=== PATIENT | male | born 1975 | race Caucasian/White ===

== ENCOUNTER → 2017-05-24 | Outpatient (CLI) | payer SELFPAY ==
[~2017-05-24] MED LIST: ALBU17AE23 IH; AURODEX10M; CEPH500C PO; CLIN-62 PO; CLIN300C3 PO; DOXY100C2 PO; ERYT-99; HYDR-229 PO; HYDR-3062 PO; HYDR-3720 PO; HYDR1TAB PO; IBP800T PO; METH4TAB PO; METO10TA3 PO; MUPI1OIN5 NS; NEO/5DRO3; NFPRILOC40 PO; PANT20TA PO; PNT40TEC PO; PRD20T PO; RABE20TA PO; RANI-10 PO; SCR1T PO; SCR1T1 PO; SULF-222 PO; SULF1TAB35 PO; SULF1TAB38 PO; SULF1TAB7 PO
--- NOTE | 2017-05-24 14:09 | Diagnostic Imaging Report ---
EXAMINATION: Left lower extremity duplex venous ultrasound. TECHNIQUE: DVT protocol. Multiple sonographic images with color Doppler and waveform interrogation were performed of the left lower extremity veins with compression and augmentation maneuvers. INDICATION: Left leg edema. FINDINGS: The left lower extremity veins from the groin to below the knee veins were examined with normal color-flow, compressibility and waveform demonstrated. The great saphenous vein is patent. IMPRESSION: No evidence of DVT in the left lower extremity. Dictated by: Dictated on workstation # [id number]
== END ==
LOC: RAD 12:53
PROVIDERS: ATTEND Nurse Practitioner Family
DX: R60.0 Localized edema (principal); M79.89 Other specified soft tissue disorders

== ENCOUNTER 2017-07-06 05:37 | Outpatient (CLI) | payer SELFPAY ==
[~2017-07-06] VITALS: Ht 175.3 cm; Wt 120.2 kg
[2017-07-06] MEDS ORDERED: DICY20TA10 PO (11:22)
[2017-07-06] MEDS ORDERED: FAMO-119 PO (11:22)
[2017-07-06] MEDS ORDERED: HYDR-3812 PO (11:22)
== END 2017-07-06 11:26 ==
LOC: PREOP 05:37
PROVIDERS: ATTEND Surgery
DX: Z01.818 Encounter for other preprocedural examination (principal); K62.5 Hemorrhage of anus and rectum; K21.9 Gastro-esophageal reflux disease without esophagitis

== ENCOUNTER 2017-07-13 06:48 | Day surgery (SDC) | payer SELFPAY ==
[~2017-07-13] VITALS: Ht 175.3 cm; Wt 120.2 kg
[~2017-07-13 06:48] MED LIST changes: +DICY20TA10 PO; +FAMO-119 PO; +HYDR-3812 PO
--- OUTSIDE RECORDS SUMMARY | 2017-07-13 06:53 | XMS REPORT ---
Author Author AMY HALEY [facility] eClinicalWorks Address Unknown Phone Unavailable Care Team Providers Care Wheel Tuner Name Role Phone AMY HALEY CP Unavailable Allergies, Adverse Reactions, Alerts Substance Reaction Event Type Morphine Sulfate nausea and vomiting Drug Allergy Problems Problem Type Condition Code Onset Dates Condition Status Problem Acute sinusitis, unspecified 461.9 Active Problem Acute upper respiratory infections of unspecified site 465.9 Active Problem Cough 786.2 Active Problem Unspecified cellulitis and abscess of finger 681.00 Active Problem Allergic rhinitis, cause unspecified 477.9 Active Problem Pain in joint, shoulder region 719.41 Active Problem Diaphragmatic hernia without mention of obstruction or gangrene 553.3 Active Problem Unspecified gastritis and gastroduodenitis without mention of hemorrhage 535.50 Active Problem Abdominal pain, unspecified site 789.00 Active Problem Diarrhea 787.91 Active Problem Cellulitis and abscess of unspecified site 682.9 Active Problem Encounter for change or removal of surgical wound dressing V58.31 Active Problem Pain in joint, upper arm 719.42 Active Assessment Shoulder pain, left M25.512 Active Problem Disturbance of skin sensation 782.0 Active Medications Medication Code System Code Instructions Start Date End Date Status Dosage Hyoscyamine Sulfate [facility] [address]-56 0.125 MG 4 times a day Jul 06, 2014 1 tablet Naproxen [facility] [address]-40 500 MG Orally every 12 hrs August 26, 2015 1 tablet as needed Protonix [facility] [address]-11 40 MG Once a day Aug 08, 2014 1 tablet [place] [facility] [address]-70 5-325 MG Orally every 6 hrs October 15, 2015 1 tablet as needed Procedures Procedure Coding System Code Date DRAIN/INJECT, JOINT/BURSA CPT-4 October 15, 2015 Vital Signs Date/Time: October 15, 2015 Temperature 97.9 F Weight 270.2 lbs Height 69 in BMI 39.90 Index Blood Pressure Diastolic 84 mmHg Blood Pressure Systolic 130 mmHg Cardiac Monitoring Heart Rate 80 bpm Results Name Result Date Reference Range Unit Abnormality Flag JOINT INJECTION-LARGE JOINT (specify site) Summary Purpose eClinicalWorks Submission
--- OUTSIDE RECORDS SUMMARY | 2017-07-13 06:53 | XMS REPORT ---
Author Author AMY HALEY [facility] Address [address] [place] [address] Care Team Providers Care Linotype Operator Name Role Phone AMY HALEY Unavailable PROBLEMS Type Condition ICD9-CM Code [id number] Code Onset Dates Condition Status SNOMED Code Problem Other chronic pain G89.29 Active 90818950 Problem Gastroesophageal reflux disease with esophagitis K21.0 Active 471813943 ALLERGIES No Information SOCIAL HISTORY Never Assessed PLAN OF CARE VITAL SIGNS MEDICATIONS Medication Instructions Dosage Frequency Start Date End Date Duration Status Hydrocodone-Acetaminophen 5-325 MG Orally every 6 hrs- Must last 30 days 1 tablet as needed Nov, 28 days Active RESULTS No Results PROCEDURES No Known procedures IMMUNIZATIONS No Known Immunizations MEDICAL (GENERAL) HISTORY Type Description Date Medical History colitis Medical History right shoulder pain Surgical History Appendectomy Surgical History Abscess drained and removed Hospitalization History surgery Hospitalization History dehydration
--- OUTSIDE RECORDS SUMMARY | 2017-07-13 06:53 | XMS REPORT ---
Author Author AMY HALEY [facility] Address [address] [place] [address] Care Team Providers Care Prosthetic Dentist Name Role Phone AMY HALEY Unavailable PROBLEMS Type Condition ICD9-CM Code [id number] Code Onset Dates Condition Status SNOMED Code Problem Other chronic pain G89.29 Active 16363523 Problem Gastroesophageal reflux disease with esophagitis K21.0 Active 535618594 ALLERGIES No Information SOCIAL HISTORY Never Assessed PLAN OF CARE VITAL SIGNS MEDICATIONS Medication Instructions Dosage Frequency Start Date End Date Duration Status Hydrocodone-Acetaminophen 5-325 MG Orally every 6 hrs- Must last 30 days 1 tablet as needed Jul, Active RESULTS No Results PROCEDURES No Known procedures IMMUNIZATIONS No Known Immunizations MEDICAL (GENERAL) HISTORY Type Description Date Medical History colitis Medical History right shoulder pain Surgical History Appendectomy Surgical History Abscess drained and removed Hospitalization History surgery Hospitalization History dehydration
--- OUTSIDE RECORDS SUMMARY | 2017-07-13 06:53 | XMS REPORT ---
Author Author AMY HALEY [facility] Address [address] [place] [address] Care Team Providers Care Paper Products Printer Name Role Phone AMY HALEY Unavailable PROBLEMS Type Condition ICD9-CM Code [id number] Code Onset Dates Condition Status SNOMED Code Problem Other chronic pain G89.29 Active 93623035 Problem Gastroesophageal reflux disease with esophagitis K21.0 Active 187087718 ALLERGIES No Information SOCIAL HISTORY Never Assessed PLAN OF CARE VITAL SIGNS MEDICATIONS Medication Instructions Dosage Frequency Start Date End Date Duration Status Hydrocodone-Acetaminophen 5-325 MG Orally every 6 hrs- Must last 30 days 1 tablet as needed Aug, Active RESULTS No Results PROCEDURES No Known procedures IMMUNIZATIONS No Known Immunizations MEDICAL (GENERAL) HISTORY Type Description Date Medical History colitis Medical History right shoulder pain Surgical History Appendectomy Surgical History Abscess drained and removed Hospitalization History surgery Hospitalization History dehydration
--- OUTSIDE RECORDS SUMMARY | 2017-07-13 06:53 | XMS REPORT ---
Author Author AMY HALEY Organization eClinicalWorks Address Unknown Phone Unavailable Care Team Providers Care Knot Tying Operator Name Role Phone AMY HALEY CP Unavailable Allergies No Known Allergies Problems Problem Type Condition Code Onset Dates [...] Pain in joint, upper arm 719.42 Active Problem Disturbance of skin sensation 782.0 Active Medications Medication Code System Code Instructions Start Date End Date Status Dosage [facility] [address]-68 5-325 MG Orally every 6 hrs. MUST LAST 30 DAYS. October 15, 2015 1 tablet as needed Results No Known Results Summary Purpose eClinicalWorks Submission
--- OUTSIDE RECORDS SUMMARY | 2017-07-13 06:53 | XMS REPORT ---
Author Author AMY HALEY Organization [facility] Address [address] [place] [address] Care Team Providers Care Prep Room Supervisor Name Role Phone AMY HALEY Unavailable PROBLEMS Type Condition ICD9-CM Code UHE08-QJ Code Onset Dates Condition Status SNOMED Code Problem Cough 786.2 Active 96564498 Problem Unspecified gastritis and gastroduodenitis without mention of hemorrhage 535.50 Active 041716621 Problem Acute upper respiratory infections of unspecified site 465.9 Active 56084995 Problem Pain in joint, shoulder region 719.41 Active 529342741 Problem Unspecified cellulitis and abscess of finger 681.00 Active 268841870 Problem Diarrhea 787.91 Active 24498532 Problem Diaphragmatic hernia without mention of obstruction or gangrene 553.3 Active 98896287 Problem Allergic rhinitis, cause unspecified 477.9 Active 83582651 Problem Abdominal pain, unspecified site 789.00 Active 87203602 Problem Encounter for change or removal of surgical wound dressing V58.31 Active 34132417 Problem Pain in joint, upper arm 719.42 Active 967527358 Problem Disturbance of skin sensation 782.0 Active 131436713 Problem Cellulitis and abscess of unspecified site 682.9 Active 249481955 Problem Acute sinusitis, unspecified 461.9 Active 94830431 ALLERGIES Unknown Allergies SOCIAL HISTORY No smoking Hx information available PLAN OF CARE VITAL SIGNS MEDICATIONS Medication Instructions Dosage Frequency Start Date End Date Duration Status [place] 5-325 MG Orally every 6 hrs. MUST LAST 30 DAYS. 1 tablet as needed May, Active RESULTS No Results PROCEDURES No Known procedures IMMUNIZATIONS No Known Immunizations
--- OUTSIDE RECORDS SUMMARY | 2017-07-13 06:53 | XMS REPORT ---
Author Author AMY HALEY Organization eClinicalWorks Address Unknown Phone Unavailable Care Team Providers Care Accountant Bookkeeper Name Role Phone AMY HALEY CP Unavailable [...] Instructions Start Date End Date Status Dosage [facility] [address]-95 5-325 MG Orally every 6 hrs. MUST LAST 30 DAYS. October 15, 2015 1 tablet as needed Results No Known Results Summary Purpose eClinicalWorks Submission
--- OUTSIDE RECORDS SUMMARY | 2017-07-13 06:53 | XMS REPORT ---
Author Author AMY HALEY [facility] Address [address] [place] [address] Care Team Providers Care Hood Maker Name Role Phone AMY HALEY Unavailable PROBLEMS Type Condition ICD9-CM Code [id number] Code Onset Dates Condition Status SNOMED Code Problem Other chronic pain G89.29 Active 92311112 Problem Gastroesophageal reflux disease with esophagitis K21.0 Active 726322577 ALLERGIES Unknown Allergies SOCIAL HISTORY No smoking Hx information available PLAN OF CARE VITAL SIGNS MEDICATIONS Medication Instructions Dosage Frequency Start Date End Date Duration Status [place] 5-325 MG Orally every 6 hrs. MUST LAST 30 DAYS. 1 tablet as needed Jun, 28 days Active RESULTS No Results PROCEDURES No Known procedures IMMUNIZATIONS No Known Immunizations
--- OUTSIDE RECORDS SUMMARY | 2017-07-13 06:53 | XMS REPORT ---
Author Author AMY HALEY [facility] Address [address] [place] [address] Care Team Providers Care Gas Leak Inspector Helper Name Role Phone AMY HALEY Unavailable PROBLEMS Type Condition ICD9-CM Code [id number] Code Onset Dates Condition Status SNOMED Code Problem Other chronic pain G89.29 Active 92389446 Problem Gastroesophageal reflux disease with esophagitis K21.0 Active 541269352 ALLERGIES Substance Reaction Event Type Date Status Morphine Sulfate nausea and vomiting Drug Allergy Jul, Active SOCIAL HISTORY Never Assessed PLAN OF CARE VITAL SIGNS Height 69 in 2016-07-30 Weight 282.7 lbs 2016-07-30 Temperature 98.2 degrees Fahrenheit 2016-07-30 Heart Rate 76 bpm 2016-07-30 Respiratory Rate 20 2016-07-30 BMI 41.74 kg/m2 2016-07-30 Blood pressure systolic 132 mmHg 2016-07-30 Blood pressure diastolic 94 mmHg 2016-07-30 MEDICATIONS Medication Instructions Dosage Frequency Start Date End Date Duration Status [place] 5-325 MG Orally every 6 hrs. MUST LAST 30 DAYS. 1 tablet as needed Jul, 30 Active Protonix 40 mg 1 tablet 24h Active RESULTS No Results PROCEDURES No Known procedures IMMUNIZATIONS No Known Immunizations MEDICAL (GENERAL) HISTORY Type Description Date Medical History colitis Medical History right shoulder pain Surgical History Appendectomy Surgical History Abscess drained and removed Hospitalization History surgery Hospitalization History dehydration
--- OUTSIDE RECORDS SUMMARY | 2017-07-13 06:53 | XMS REPORT ---
Author Author AMY HALEY Organization eClinicalWorks Address Unknown Phone Unavailable Care Team Providers Care Traveling Freight Agent Name Role Phone AMY HALEY CP Unavailable [...] Instructions Start Date End Date Status Dosage [facility] [address]-22 5-325 MG Orally every 6 hrs. MUST LAST 30 DAYS. October 15, 2015 1 tablet as needed Results No Known Results Summary Purpose eClinicalWorks Submission
--- OUTSIDE RECORDS SUMMARY | 2017-07-13 06:53 | XMS REPORT ---
Author Author AMY HALEY Organization [facility] Address [address] [place] [address] Care Team Providers Care Marine Fitter Name Role Phone AMY HALEY Unavailable PROBLEMS Type Condition ICD9-CM Code [id number] Code Onset Dates Condition Status SNOMED Code Problem Cough 786.2 Active 52375656 Problem Unspecified gastritis and gastroduodenitis without mention of hemorrhage 535.50 Active 536087053 Problem Acute upper respiratory infections of unspecified site 465.9 Active 29409368 Problem Pain in joint, shoulder region 719.41 Active 266939318 Problem Unspecified cellulitis and abscess of finger 681.00 Active 379383270 Problem Diarrhea 787.91 Active 27229692 Problem Diaphragmatic hernia without mention of obstruction or gangrene 553.3 Active 34466571 Problem Allergic rhinitis, cause unspecified 477.9 Active 08729083 Problem Abdominal pain, unspecified site 789.00 Active 32819969 Problem Encounter for change or removal of surgical wound dressing V58.31 Active 03860297 Problem Pain in joint, upper arm 719.42 Active 743352853 Problem Disturbance of skin sensation 782.0 Active 976849334 Problem Cellulitis and abscess of unspecified site 682.9 Active 042085424 Problem Acute sinusitis, unspecified 461.9 Active 62605202 ALLERGIES Unknown Allergies SOCIAL HISTORY No smoking Hx information available PLAN OF CARE VITAL SIGNS MEDICATIONS Medication Instructions Dosage Frequency Start Date End Date Duration Status Bactrim DS 800-160 MG Orally Twice a day 1 tablet 12h 10 days Active RESULTS No Results PROCEDURES No Known procedures IMMUNIZATIONS No Known Immunizations
--- OUTSIDE RECORDS SUMMARY | 2017-07-13 06:53 | XMS REPORT ---
Author Author AMY HALEY [facility] Address [address] [place] [address] Care Team Providers Care Shop Fitter Name Role Phone AMY HALEY Unavailable PROBLEMS Type Condition ICD9-CM Code [id number] Code Onset Dates Condition Status SNOMED Code Problem Other chronic pain G89.29 Active 45914601 Problem Gastroesophageal reflux disease with esophagitis K21.0 Active 387813143 ALLERGIES No Information SOCIAL HISTORY Never Assessed PLAN OF CARE VITAL SIGNS MEDICATIONS Medication Instructions Dosage Frequency Start Date End Date Duration Status Hydrocodone-Acetaminophen 5-325 MG Orally every 6 hrs- Must last 30 days 1 tablet as needed October, 28 days Active RESULTS No Results PROCEDURES No Known procedures IMMUNIZATIONS No Known Immunizations MEDICAL (GENERAL) HISTORY Type Description Date Medical History colitis Medical History right shoulder pain Surgical History Appendectomy Surgical History Abscess drained and removed Hospitalization History surgery Hospitalization History dehydration
--- OUTSIDE RECORDS SUMMARY | 2017-07-13 06:53 | XMS REPORT ---
Author Author AMY HALEY Organization [facility] Address [address] [place] [address] Care Team Providers Care Mortgage Operations Manager Name Role Phone AMY HALEY Unavailable PROBLEMS Type Condition ICD9-CM Code QAK37-CK Code Onset Dates Condition Status SNOMED Code Problem Cough 786.2 Active 10119486 Problem Unspecified gastritis and gastroduodenitis without mention of hemorrhage 535.50 Active 593600132 Problem Acute upper respiratory infections of unspecified site 465.9 Active 33616464 Problem Pain in joint, shoulder region 719.41 Active 394686173 Problem Unspecified cellulitis and abscess of finger 681.00 Active 925016538 Problem Diarrhea 787.91 Active 34708190 Problem Diaphragmatic hernia without mention of obstruction or gangrene 553.3 Active 36183556 Problem Allergic rhinitis, cause unspecified 477.9 Active 92755899 Problem Abdominal pain, unspecified site 789.00 Active 16323848 Problem Encounter for change or removal of surgical wound dressing V58.31 Active 53561162 Problem Pain in joint, upper arm 719.42 Active 731034362 Problem Disturbance of skin sensation 782.0 Active 976080796 Problem Cellulitis and abscess of unspecified site 682.9 Active 244156763 Problem Acute sinusitis, unspecified 461.9 Active 50454666 ALLERGIES Unknown Allergies SOCIAL HISTORY No smoking Hx information available PLAN OF CARE VITAL SIGNS MEDICATIONS Medication Instructions Dosage Frequency Start Date End Date Duration Status [place] 5-325 MG Orally every 6 hrs. MUST LAST 30 DAYS. 1 tablet as needed Sep, Active RESULTS No Results PROCEDURES No Known procedures IMMUNIZATIONS No Known Immunizations
--- OUTSIDE RECORDS SUMMARY | 2017-07-13 06:54 | XMS REPORT ---
Author Author AMY HALEY Organization eClinicalWorks Address Unknown Phone Unavailable Care Team Providers Care Asphalt Patcher Name Role Phone AMY HALEY CP Unavailable [...] in joint, upper arm 719.42 Active Assessment Pain in left shoulder M25.512 Active Problem Disturbance of skin sensation 782.0 Active Medications Medication Code System Code Instructions Start Date End Date Status Dosage [facility] [address]-79 5-325 MG Orally every 6 hrs. MUST LAST 30 DAYS. October 15, 2015 1 tablet as needed Results No Known Results Summary Purpose eClinicalWorks Submission
--- OUTSIDE RECORDS SUMMARY | 2017-07-13 06:54 | XMS REPORT ---
Author Author AMY HALEY Organization [facility] Address [address] [place] [address] Care Team Providers Care Lineman Name Role Phone AMY HALEY Unavailable PROBLEMS Type Condition ICD9-CM Code OUH00-DB Code Onset Dates Condition Status SNOMED Code Problem Other chronic pain G89.29 Active 67154832 Problem Gastroesophageal reflux disease with esophagitis K21.0 Active 213635414 ALLERGIES Substance Reaction Event Type Date Status Morphine Sulfate nausea and vomiting Drug Allergy Jul, Active SOCIAL HISTORY Never Assessed PLAN OF CARE VITAL SIGNS MEDICATIONS Medication Instructions Dosage Frequency Start Date End Date Duration Status Protonix 40 mg 1 tablet 24h Active RESULTS Name Result Date Reference Range AMERITOX 2016-07-31 AMERITOX 2016-07-31 PROCEDURES No Known procedures IMMUNIZATIONS No Known Immunizations MEDICAL (GENERAL) HISTORY Type Description Date Medical History colitis Medical History right shoulder pain Surgical History Appendectomy Surgical History Abscess drained and removed Hospitalization History surgery Hospitalization History dehydration
--- OUTSIDE RECORDS SUMMARY | 2017-07-13 06:54 | XMS REPORT ---
Author Author AMY HALEY Organization [facility] Address [address] [place] [address] Care Team Providers Care Health Companion Name Role Phone AMY HALEY Unavailable PROBLEMS Type Condition ICD9-CM Code XAM83-WR Code Onset Dates Condition Status SNOMED Code Problem Cough 786.2 Active 94391222 Problem Unspecified gastritis and gastroduodenitis without mention of hemorrhage 535.50 Active 125012514 Problem Acute upper respiratory infections of unspecified site 465.9 Active 05407049 Problem Pain in joint, shoulder region 719.41 Active 794964680 Problem Unspecified cellulitis and abscess of finger 681.00 Active 223856076 Problem Diarrhea 787.91 Active 47420752 Problem Diaphragmatic hernia without mention of obstruction or gangrene 553.3 Active 44107394 Problem Allergic rhinitis, cause unspecified 477.9 Active 42560389 Problem Abdominal pain, unspecified site 789.00 Active 53722258 Problem Encounter for change or removal of surgical wound dressing V58.31 Active 87452849 Problem Pain in joint, upper arm 719.42 Active 463118241 Problem Disturbance of skin sensation 782.0 Active 319767286 Problem Cellulitis and abscess of unspecified site 682.9 Active 466287216 Problem Acute sinusitis, unspecified 461.9 Active 42820771 ALLERGIES Unknown Allergies SOCIAL HISTORY No smoking Hx information available PLAN OF CARE VITAL SIGNS MEDICATIONS Unknown Medications RESULTS No Results PROCEDURES No Known procedures IMMUNIZATIONS No Known Immunizations
--- OUTSIDE RECORDS SUMMARY | 2017-07-13 06:54 | XMS REPORT ---
Author Author AMY HALEY Organization [facility] Address [address] [place] [address] Care Team Providers Care Detective Private Eye Name Role Phone AMY HALEY Unavailable PROBLEMS Type Condition ICD9-CM Code PNH81-WW Code Onset Dates Condition Status SNOMED Code Problem Other chronic pain G89.29 Active 47280856 Problem Gastroesophageal reflux disease with esophagitis K21.0 Active 415978539 ALLERGIES No Information SOCIAL HISTORY Never Assessed PLAN OF CARE VITAL SIGNS MEDICATIONS Medication Instructions Dosage Frequency Start Date End Date Duration Status [place] 5-325 MG Orally every 6 hrs. MUST LAST 30 DAYS. 1 tablet as needed Jul, 30 Active RESULTS No Results PROCEDURES No Known procedures IMMUNIZATIONS No Known Immunizations MEDICAL (GENERAL) HISTORY Type Description Date Medical History colitis Medical History right shoulder pain Surgical History Appendectomy Surgical History Abscess drained and removed Hospitalization History surgery Hospitalization History dehydration
--- OUTSIDE RECORDS SUMMARY | 2017-07-13 06:55 | XMS REPORT | Continuity of Care Document ---
Author Author [facility] Address Unknown Phone Unavailable Allergies Active Description Code Type Severity Reaction Onset Reported/Identified Relationship to Patient Clinical Status Yes CHOLESTEROL PILL CHOLESTEROL PILL Mild "RED MAN SYNDRO 10/14/2008 Yes morphine Drug Allergy N/A N/A 03/07/2010 Yes morphine [id number] Drug Allergy Unknown SWEATS AND VOMI 07/06/2017 Medications There is no data. Problems Date Dx Coded Attending Type Code Diagnosis Diagnosed By 10/15/2008 786.50 chest pain or discomfort 10/15/2008 786.50 chest pain or discomfort 10/15/2008 786.50 chest pain or discomfort 10/15/2008 786.50 chest pain or discomfort 10/15/2008 786.50 chest pain or discomfort 10/15/2008 SARI POPE APRN 786.50 chest pain or discomfort 10/15/2008 MARIPOSA BRENNER DO 786.50 chest pain or discomfort 10/15/2008 AMY HALEY APRN 786.50 chest pain or discomfort 10/15/2008 AMY HALEY APRN 786.50 chest pain or discomfort 10/15/2008 AMY HALEY APRN 786.50 chest pain or discomfort 10/15/2008 MARIPOSA BRENNER DO 786.50 chest pain or discomfort 02/07/2009 786.05 shortness of breath 02/07/2009 786.05 shortness of breath 02/07/2009 786.05 shortness of breath 02/07/2009 786.05 shortness of breath 02/07/2009 786.05 shortness of breath 02/07/2009 SARI POPE APRN 786.05 shortness of breath 02/07/2009 MARIPOSA BRENNER DO 786.05 shortness of breath 02/07/2009 AMY HALEY APRN 786.05 shortness of breath 02/07/2009 AMY HALEY APRN 786.05 shortness of breath 02/07/2009 AMY HALEY APRN 786.05 shortness of breath 02/07/2009 MARIPOSA BRENNER DO 786.05 shortness of breath 01/25/2010 Ot 380.10 01/25/2010 Ot 388.70 03/12/2010 Ot 786.50 03/12/2010 Ot 787.20 03/12/2010 Ot V17.3 03/13/2010 Ot 786.50 02/05/2011 Ot 530.81 ESOPHAGEAL REFLUX 02/05/2011 Ot 786.50 CHEST PAIN NOS 02/20/2011 530.81 GERD 02/20/2011 530.81 GERD 02/20/2011 530.81 GERD 02/20/2011 530.81 GERD 02/20/2011 530.81 GERD 02/20/2011 SARI POPE APRN 530.81 GERD 02/20/2011 MARIPOSA BRENNER DO 530.81 GERD 02/20/2011 AMY HALEY APRN 530.81 GERD 02/20/2011 AMY HALEY APRN 530.81 GERD 02/20/2011 AMY HALEY APRN 530.81 GERD 02/20/2011 MARIPOSA BRENNER DO 530.81 GERD 06/17/2011 Ot 461.9 ACUTE SINUSITIS NOS 06/17/2011 Ot 786.2 COUGH 06/21/2011 Ot 466.0 ACUTE BRONCHITIS 06/21/2011 Ot 786.2 COUGH 07/06/2011 477.9 RHINITIS 07/06/2011 477.9 RHINITIS 07/06/2011 477.9 RHINITIS 07/06/2011 477.9 RHINITIS 07/06/2011 477.9 RHINITIS 07/06/2011 SARI POPE APRN 477.9 RHINITIS 07/06/2011 MARIPOSA BRENNER DO 477.9 RHINITIS 07/06/2011 AMY HALEY APRN 477.9 RHINITIS 07/06/2011 AMY HALEY APRN 477.9 RHINITIS 07/06/2011 AMY HALEY APRN 477.9 RHINITIS 07/06/2011 MARIPOSA BRENNER DO 477.9 RHINITIS 07/15/2011 465.9 UPPER RESPIRATORY INFECTION 07/15/2011 465.9 UPPER RESPIRATORY INFECTION 07/15/2011 465.9 UPPER RESPIRATORY INFECTION 07/15/2011 465.9 UPPER RESPIRATORY INFECTION 07/15/2011 465.9 UPPER RESPIRATORY INFECTION 07/15/2011 SARI POPE APRN 465.9 UPPER RESPIRATORY INFECTION 07/15/2011 MARIPOSA BRENNER DO 465.9 UPPER RESPIRATORY INFECTION 07/15/2011 AMY HALEY APRN 465.9 UPPER RESPIRATORY INFECTION 07/15/2011 AMY HALEY APRN 465.9 UPPER RESPIRATORY INFECTION 07/15/2011 AMY HALEY APRN 465.9 UPPER RESPIRATORY INFECTION 07/15/2011 MARIPOSA BRENNER DO 465.9 UPPER RESPIRATORY INFECTION 08/28/2011 719.41 SHOULDER JOINT PAIN 08/28/2011 719.41 SHOULDER JOINT PAIN 08/28/2011 719.41 SHOULDER JOINT PAIN 08/28/2011 719.41 SHOULDER JOINT PAIN 08/28/2011 719.41 SHOULDER JOINT PAIN 08/28/2011 SARI POPE APRN 719.41 SHOULDER JOINT PAIN 08/28/2011 MARIPOSA BRENNER DO 719.41 SHOULDER JOINT PAIN 08/28/2011 AMY HALEY APRN 719.41 SHOULDER JOINT PAIN 08/28/2011 AMY HALEY APRN 719.41 SHOULDER JOINT PAIN 08/28/2011 AMY HALEY APRN 719.41 SHOULDER JOINT PAIN 08/28/2011 MARIPOSA BRENNER DO 719.41 SHOULDER JOINT PAIN 10/17/2011 Ot 883.0 OPEN WOUND OF FINGER 10/17/2011 Ot E000.8 OTHER EXTERNAL CAUSE STATUS 10/17/2011 Ot E849.0 ACCIDENT IN HOME 10/17/2011 Ot E920.8 ACC-CUTTING INSTRUM NEC 10/17/2011 Ot V06.1 DIPHTHERIA- TETANUS-PERTUSSIS, COMBINED [ 10/13/2012 PEDRO BATEMAN, OLVIN Romero Ot 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 11/24/2012 MAHENDRA BATEMAN, ANDIE Choudhary Ot 530.81 ESOPHAGEAL REFLUX 11/24/2012 MAHENDRA BATEMAN, ANDIE Choudhary Ot 786.59 CHEST PAIN NEC 11/24/2012 ANDIE MCCRAY MD Ot 789.06 ABDOMINAL PAIN, EPIGASTRIC 12/01/2012 ALPHONSO REYNOLDS DO Ot 681.00 CELLULITIS, FINGER NOS 12/01/2012 ALPHONSO REYNOLDS DO Ot V12.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 RESISTANT S 12/02/2012 681.00 UNSPECIFIED CELLULITIS AND ABSCESS OF FINGER 12/02/2012 681.00 UNSPECIFIED CELLULITIS AND ABSCESS OF FINGER 12/02/2012 681.00 UNSPECIFIED CELLULITIS AND ABSCESS OF FINGER 12/02/2012 681.00 UNSPECIFIED CELLULITIS AND ABSCESS OF FINGER 12/02/2012 681.00 UNSPECIFIED CELLULITIS AND ABSCESS OF FINGER 12/02/2012 SARI POPE APRN R 681.00 UNSPECIFIED CELLULITIS AND ABSCESS OF FINGER 12/02/2012 MARIPOSA BRENNER DO 681.00 UNSPECIFIED CELLULITIS AND ABSCESS OF FINGER 12/02/2012 AMY HALEY APRN 681.00 UNSPECIFIED CELLULITIS AND ABSCESS OF FINGER 12/02/2012 AMY HALEY APRN 681.00 UNSPECIFIED CELLULITIS AND ABSCESS OF FINGER 12/02/2012 AMY HALEY APRN 681.00 UNSPECIFIED CELLULITIS AND ABSCESS OF FINGER 12/02/2012 MARIPOSA BRENNER DO 681.00 UNSPECIFIED CELLULITIS AND ABSCESS OF FINGER 01/13/2013 782.0 DISTURBANCE OF SKIN SENSATION 01/13/2013 782.0 DISTURBANCE OF SKIN SENSATION 01/13/2013 782.0 DISTURBANCE OF SKIN SENSATION 01/13/2013 SARI POPE APRN R 782.0 DISTURBANCE OF SKIN SENSATION 01/13/2013 MARIPOSA BRENNER DO 782.0 DISTURBANCE OF SKIN SENSATION 01/13/2013 AMY HALEY APRN 782.0 DISTURBANCE OF SKIN SENSATION 01/13/2013 AMY HALEY APRN 782.0 DISTURBANCE OF SKIN SENSATION 01/13/2013 AMY HALEY APRN 782.0 DISTURBANCE OF SKIN SENSATION 01/13/2013 MARIPOSA BRENNER DO 782.0 DISTURBANCE OF SKIN SENSATION 01/16/2013 PEDRO BATEMAN, OLVIN Romero Ot 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 02/14/2013 MARIPOSA BRENNER DO Ot 041.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 RESISTANT STAPHYLOCOCCUS AUR 02/14/2013 MARIPOSA BRENNER DO Ot 530.81 ESOPHAGEAL REFLUX 02/14/2013 MARIPOSA BRENNER DO Ot 682.6 CELLULITIS OF LEG 02/14/2013 MARIPOSA BRENNER DO Ot V12.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 RESISTANT S 02/17/2013 682.9 CELLULITIS AND ABSCESS OF UNSPECIFIED SITES 02/17/2013 V58.31 WOUND DRESSING 02/17/2013 682.9 CELLULITIS AND ABSCESS OF UNSPECIFIED SITES 02/17/2013 V58.31 WOUND DRESSING 02/17/2013 682.9 CELLULITIS AND ABSCESS OF UNSPECIFIED SITES 02/17/2013 V58.31 WOUND DRESSING 02/17/2013 SARI POPE APRN R 682.9 CELLULITIS AND ABSCESS OF UNSPECIFIED SITES 02/17/2013 JAIME POPE APRNIA R V58.31 WOUND DRESSING 02/17/2013 BRENNER DO, MARIPOSA K 682.9 CELLULITIS AND ABSCESS OF UNSPECIFIED SITES 02/17/2013 BRENNER DO, MARIPOSA K V58.31 WOUND DRESSING 02/17/2013 AMY HALEY APRN 682.9 CELLULITIS AND ABSCESS OF UNSPECIFIED SITES 02/17/2013 AMY HALEY APRN V58.31 WOUND DRESSING 02/17/2013 AMY HALEY APRN 682.9 CELLULITIS AND ABSCESS OF UNSPECIFIED SITES 02/17/2013 AMY HALEY APRN V58.31 WOUND DRESSING 02/17/2013 AMY HALEY APRN 682.9 CELLULITIS AND ABSCESS OF UNSPECIFIED SITES 02/17/2013 AMY HALEY APRN V58.31 WOUND DRESSING 02/17/2013 BRENNER DO, MARIPOSA K 682.9 CELLULITIS AND ABSCESS OF UNSPECIFIED SITES 02/17/2013 BRENNER DO, MARIPOSA K V58.31 WOUND DRESSING 03/17/2013 GABE BATEMAN, YADIRA Sheikh Ot 592.0 CALCULUS OF KIDNEY 03/17/2013 GABE BATEMAN, YADIRA Sheikh Ot 789.00 ABDOMINAL PAIN, UNSPECIFIED SITE 04/14/2013 ELIDIA DO MARIPOSA K 461.9 SINUSITIS ACUTE 04/14/2013 BRENNER DO, MARIPOSA K 786.2 COUGH 04/14/2013 AMY HALEY APRN 461.9 SINUSITIS ACUTE 04/14/2013 AMY HALEY APRN 786.2 COUGH 04/14/2013 AMY HALEY APRN 461.9 SINUSITIS ACUTE 04/14/2013 AMY HALEY APRN 786.2 COUGH 04/14/2013 AMY HALEY APRN 461.9 SINUSITIS ACUTE 04/14/2013 AMY HALEY APRN T 786.2 COUGH 04/14/2013 BRENNER DO MARIPOSA K 461.9 SINUSITIS ACUTE 04/14/2013 BRENNER DO MARIPOSA K 786.2 COUGH 09/15/2013 AMY HALEY APRN 719.42 PAIN- ELBOW 09/15/2013 AMY HALEY APRN T 719.42 PAIN- ELBOW 09/15/2013 AMY HALEY APRN 719.42 PAIN- ELBOW 09/15/2013 MARIPOSA BRENNER DO 719.42 PAIN- ELBOW 02/10/2014 JESSICA BATEMAN, BIRGIT Gill Ot 682.6 CELLULITIS OF LEG 02/10/2014 JESSICA BATEMAN, BIRGIT Gill Ot 916.5 INSECT BITE HIP/LEG-INF 02/10/2014 BIRGIT LOPEZ MD Ot E000.8 OTHER EXTERNAL CAUSE STATUS 02/10/2014 JESSICA BATEMAN, BIRGIT Gill Ot E849.0 ACCIDENT IN HOME 02/10/2014 BIRGIT LOPEZ MD Ot E906.4 NONVENOM ARTHROPOD BITE 03/05/2014 MAHENDRA BATEMAN, ANDIE Choudhary Ot 729.1 MYALGIA AND MYOSITIS NOS 03/05/2014 ANDIE MCCRAY MD Ot 787.02 NAUSEA ALONE 04/29/2014 ALPHONSO REYNOLDS DO Ot 401.9 HYPERTENSION NOS 04/29/2014 ALPHONSO REYNOLDS DO Ot 682.1 CELLULITIS OF NECK 04/29/2014 ALPHONSO REYNOLDS DO Ot 910.4 INSECT BITE HEAD 04/29/2014 ALPHONSO REYNOLDS DO Ot V12.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 RESISTANT S 05/11/2014 Ot 608.4 05/11/2014 Ot 608.4 05/14/2014 JOHANNA DOTY MD Ot 530.11 05/14/2014 LALITHA BATEMAN, JOHANNA Ot 530.3 05/14/2014 JOHANNA DOTY MD Ot 530.5 05/14/2014 JOHANNA DOTY MD Ot 535.50 05/14/2014 JOHANNA DOTY MD Ot 535.60 05/14/2014 LALITHA BATEMAN, JOHANNA Ot 553.3 05/14/2014 JOHANNA DOTY MD Ot 935.1 05/14/2014 JOHANNA DOTY MD Ot E000.8 05/14/2014 JOHANNA DOTY MD Ot E915 05/14/2014 JOHANNA DOTY MD Ot 530.11 05/14/2014 JOHANNA DOTY MD Ot 530.3 05/14/2014 JOHANNA DOTY MD Ot 530.5 05/14/2014 LALITHA BATEMAN, TAKAAKI Ot 535.50 05/14/2014 LALITHA BATEMAN, TAKAAKI Ot 535.60 05/14/2014 LALITHA BATEMAN, TAKAAKI Ot 553.3 05/14/2014 LALITHA BATEMAN, TAKAAKI Ot 935.1 05/14/2014 LALITHA BATEMAN, TAKAAKI Ot E000.8 05/14/2014 LALITHA BATEMAN, TAKAAKI Ot E915 05/14/2014 LALITHA BATEMAN, TAKAAKI Ot 530.11 05/14/2014 LALITHA BATEMAN, TAKAAKI Ot 530.3 05/14/2014 LALITHA BATEMAN, TAKAAKI Ot 530.5 05/14/2014 LALITHA BATEMAN, TAKAAKI Ot 535.50 05/14/2014 LALITHA BATEMAN, TAKAAKI Ot 535.60 05/14/2014 LALITHA BATEMAN, TAKAAKI Ot 553.3 05/14/2014 ALLITHA BATEMAN, TAKAAKI Ot 935.1 05/14/2014 LALITHA BATEMAN, TAKAAKI Ot E000.8 05/14/2014 LALITHA BATEMAN, TAKAAKI Ot E915 05/16/2014 LALITHA BATEMAN, TAKAAKI Ot 530.11 05/16/2014 LALITHA BATEMAN, TAKAAKI Ot 530.3 05/16/2014 LALITHA BATEMAN, TAKAAKI Ot 530.5 05/16/2014 LALITHA BATEAMN, TAKAAKI Ot 535.50 05/16/2014 LALITHA BATEMAN, TAKAAKI Ot 535.60 05/16/2014 LALITHA BATEMAN, TAIWOKI Ot 553.3 05/16/2014 LALITHA BATEMAN, TAIWOKI Ot 935.1 05/16/2014 LALITHA BATEMAN, TAKAAKI Ot E000.8 05/16/2014 LALITHA BATEMAN, TAIWOKI Ot E915 07/06/2014 BRENNER DO, MARIPOSA K 787.91 DIARRHEA 07/06/2014 BRENNER DO, MARIPOSA K 789.00 ABDOMINAL PAIN UNSPECIFIED SITE 07/12/2014 ALPHONSO REYNOLDS DO Ot 530.81 ESOPHAGEAL REFLUX 07/12/2014 ALPHONSO REYNOLDS DO Ot 786.50 CHEST PAIN NOS 09/21/2014 Ot 608.4 09/21/2014 JOHANNA DOTY MD Ot 530.11 09/21/2014 LALITHA BATEMAN, TAKAAKI Ot 530.3 09/21/2014 LALITHA BATEMAN, TAKAAKI Ot 530.5 09/21/2014 LALITHA BATEMAN, TAKAAKI Ot 535.50 09/21/2014 LALITHA BATEMAN, TAKAAKI Ot 535.60 09/21/2014 LALITHA BATEMAN, TAKAAKI Ot 553.3 09/21/2014 LALITHA BATEMAN, TAKAAKI Ot 935.1 09/21/2014 LALITHA BATEMAN, JOHANNA Ot E000.8 09/21/2014 LALITHA BATEMAN, TAIWOKI Ot E915 09/30/2014 Ot 608.4 09/30/2014 LALITHA BATEMAN, TAIWOKI Ot 530.11 09/30/2014 LALITHA BATEMAN, TAIWOKI Ot 530.3 09/30/2014 LALITHA BATEMAN, TAIWOKI Ot 530.5 09/30/2014 LALITHA BATEMAN, TAKAAKI Ot 535.50 09/30/2014 LALITHA BATEMAN, TAKAAKI Ot 535.60 09/30/2014 LALITHA BATEMAN, JOHANNA Ot 553.3 09/30/2014 LALITHA BATEMAN, JOHANNA Ot 935.1 09/30/2014 LALITHA BATEMAN, JOHANNA Ot E000.8 09/30/2014 LALITHA BATEMAN, TAIWOKI Ot E915 09/30/2014 ARTEMIO MONTES WEIGHT ANALYST Ot 692.6 DERMATITIS DUE TO PLANT 09/30/2014 ARTEMIO MONTES WEIGHT ANALYST Ot 782.1 NONSPECIF SKIN ERUPT NEC 10/09/2014 Ot 608.4 10/09/2014 LALITHA BATEMAN, JOHANNA Ot 530.11 10/09/2014 LALITHA BATEMAN, TAIWOKI Ot 530.3 10/09/2014 LALITHA BATEMAN, OLIVIAAAKI Ot 530.5 10/09/2014 LALITHA BATEMAN, JOHANNA Ot 535.50 10/09/2014 LALITHA BATEMAN, TAKAAKI Ot 535.60 10/09/2014 LALITHA BATEMAN, OLIVIAAAKI Ot 553.3 10/09/2014 LALITHA BATEMAN, TAKAAKI Ot 935.1 10/09/2014 LALITHA BATEMAN, JOHANNA Ot E000.8 10/09/2014 LALITHA BATEMAN, TAIWOKI Ot E915 11/08/2014 GABE BATEMAN, YADIRA Sheikh Ot 686.9 LOCAL SKIN INFECTION NOS 11/28/2014 Ot 608.4 11/28/2014 LALITHA BATEMAN, TAKAAKI Ot 530.11 11/28/2014 LALITHA BATEMAN, TAKAAKI Ot 530.3 11/28/2014 LALITHA BATEMAN, TAKAAKI Ot 530.5 11/28/2014 LALITHA BATEMAN, TAKAAKI Ot 535.50 11/28/2014 LALITHA BATEMAN, TAKAAKI Ot 535.60 11/28/2014 LALITHA BATEMAN, TAKAAKI Ot 553.3 11/28/2014 LALITHA BATEMAN, TAKAAKI Ot 935.1 11/28/2014 LALITHA BATEMAN, TAKAAKI Ot E000.8 11/28/2014 LALITHA BATEMAN, TAKAAKI Ot E915 11/28/2014 LALITHA BATEMAN, TAKAAKI Ot 530.11 11/28/2014 LALITHA BATEMAN, TAKAAKI Ot 530.3 11/28/2014 LALITHA BATEMAN, TAKAAKI Ot 530.5 11/28/2014 LALITHA BATEMAN, TAKAAKI Ot 535.50 11/28/2014 LALITHA BATEMAN, TAKAAKI Ot 535.60 11/28/2014 LALITHA BATEMAN, TAKAAKI Ot 553.3 11/28/2014 LALITHA BATEMAN, TAKAAKI Ot 935.1 11/28/2014 LALITHA BATEMAN, TAKAAKI Ot E000.8 11/28/2014 LALITHA BATEMAN, TAKAAKI Ot E915 12/10/2014 LALITHA BATEMAN, TAKAAKI Ot 530.11 12/10/2014 LALITHA BATEMAN, TAKAAKI Ot 530.3 12/10/2014 LALITHA BATEMAN, TAKAAKI Ot 530.5 12/10/2014 LALITHA BATEMAN, TAKAAKI Ot 535.50 12/10/2014 LALITHA BATEMAN, TAKAAKI Ot 535.60 12/10/2014 LALITHA BATEMAN, TAKAAKI Ot 553.3 12/10/2014 LALITHA BATEMAN, TAKAAKI Ot 935.1 12/10/2014 LALITHA BATEMAN, TAKAAKI Ot E000.8 12/10/2014 LALITHA BATEMAN, TAKAAKI Ot E915 02/24/2015 Ot 608.4 02/24/2015 LALITHA BATEMAN, TAKAAKI Ot 530.11 02/24/2015 LALITHA BATEMAN, TAKAAKI Ot 530.3 02/24/2015 LALITHA BATEMAN, TAKAAKI Ot 530.5 02/24/2015 LALITHA BATEMAN, JOHANNA Ot 535.50 02/24/2015 LALITHA BATEMAN, JOHANNA Ot 535.60 02/24/2015 LALITHA BATEMAN, JOHANNA Ot 553.3 02/24/2015 LALITHA BATEMAN, JOHANNA Ot 935.1 02/24/2015 LALITHA BATEMAN, JOHANNA Ot E000.8 02/24/2015 LALITHA BATEMAN, JOHANNA Ot E915 03/01/2015 Ot 608.4 03/01/2015 LALITHA BATEMAN, JOHANNA Ot 530.11 03/01/2015 LALITHA BATEMAN, JOHANNA Ot 530.3 03/01/2015 LALITHA BATEMAN, JOHANNA Ot 530.5 03/01/2015 LALITHA BATEMAN, JOHANNA Ot 535.50 03/01/2015 LALITHA BATEMAN, JOHANNA Ot 535.60 03/01/2015 LALITHA BATEMAN, JOHANNA Ot 553.3 03/01/2015 LALITHA BATEMAN, JOHANNA Ot 935.1 03/01/2015 LALITHA BATEMAN, JOHANNA Ot E000.8 03/01/2015 LALITHA BATEMAN, JOHANNA Ot E915 12/13/2015 Ot 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 12/13/2015 LALITHA BATEMAN, JOHANNA Ot 530.11 REFLUX ESOPHAGITIS 12/13/2015 LALITHA BATEMAN, JOHANNA Ot 530.3 ESOPHAGEAL STRICTURE 12/13/2015 LALITHA BATEMAN, JOHANNA Ot 530.5 DYSKINESIA OF ESOPHAGUS 12/13/2015 JOHANNA DOTY MD Ot 535.50 UNSP GASTRITIS GASTRODUODENITIS W/O ME 12/13/2015 LALITHA BATEMAN, JOHANNA Ot 535.60 DUODENITIS, WITHOUT MENTION OF HEMORRHAG 12/13/2015 LALITHA BATEMAN, JOHANNA Ot 553.3 DIAPHRAGMATIC HERNIA 12/13/2015 LALITHA BATEMAN, JOHANNA Ot 935.1 FOREIGN BODY ESOPHAGUS 12/13/2015 JOHANNA DOTY MD Ot E000.8 OTHER EXTERNAL CAUSE STATUS 12/13/2015 JOHANNA DOTY MD Ot E915 FB ENTERING OTH ORIFICE 12/13/2015 ROSENDO HUSSEIN Ot L02.31 CUTANEOUS ABSCESS OF BUTTOCK 12/13/2015 ROSENDO HUSSEIN Ot Z86.14 PERSONAL HISTORY OF METHICILLIN RESIS ST 12/13/2015 Ot 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 12/13/2015 JOHANNA DOTY MD Ot 530.11 REFLUX ESOPHAGITIS 12/13/2015 JOHANNA DOTY MD Ot 530.3 ESOPHAGEAL STRICTURE 12/13/2015 JOHANNA DOTY MD Ot 530.5 DYSKINESIA OF ESOPHAGUS 12/13/2015 JOHANNA DOTY MD Ot 535.50 UNSP GASTRITIS GASTRODUODENITIS W/O ME 12/13/2015 JOHANNA DOTY MD Ot 535.60 DUODENITIS, WITHOUT MENTION OF HEMORRHAG 12/13/2015 JOHANNA DOTY MD Ot 553.3 DIAPHRAGMATIC HERNIA 12/13/2015 JOHANNA DOTY MD Ot 935.1 FOREIGN BODY ESOPHAGUS 12/13/2015 JOHANNA DOTY MD Ot E000.8 OTHER EXTERNAL CAUSE STATUS 12/13/2015 JOHANNA DOTY MD Ot E915 FB ENTERING OTH ORIFICE 05/24/2017 Ot 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 05/24/2017 JOHANNA DOTY MD Ot 530.11 REFLUX ESOPHAGITIS 05/24/2017 JOHANNA DOTY MD Ot 530.3 ESOPHAGEAL STRICTURE 05/24/2017 JOHANNA DOTY MD Ot 530.5 DYSKINESIA OF ESOPHAGUS 05/24/2017 JOHANNA DOTY MD Ot 535.50 UNSP GASTRITIS GASTRODUODENITIS W/O ME 05/24/2017 JOHANNA DOTY MD Ot 535.60 DUODENITIS, WITHOUT MENTION OF HEMORRHAG 05/24/2017 JOHANNA DOTY MD Ot 553.3 DIAPHRAGMATIC HERNIA 05/24/2017 JOHANNA DOTY MD Ot 935.1 FOREIGN BODY ESOPHAGUS 05/24/2017 JOHANNA DOTY MD Ot E000.8 OTHER EXTERNAL CAUSE STATUS 05/24/2017 JOHANNA DOTY MD Ot E915 FB ENTERING OTH ORIFICE 05/25/2017 ALEX SOLER APRN Ot M79.89 OTHER SPECIFIED SOFT TISSUE DISORDERS 05/25/2017 ALEX SOLER APRN Ot R60.0 LOCALIZED EDEMA 07/06/2017 Ot 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 Procedures Code Description Performed By Performed On OLVIN DUPREE 12/10/2012 86.04 OTHER SKIN SUBQ I D 02/13/2013 Results There is no data. Encounters ACCT No. Visit Date/Time Discharge Status Pt. Type Provider Facility Loc./Unit Complaint [id number] 07/06/2014 14:22:00 07/06/2014 23:59:59 CLS Outpatient MARIPOSA BRENNER DO [id number] 05/02/2014 14:27:00 05/02/2014 23:59:59 CLS Outpatient AMY HALEY APRN [id number] 03/02/2014 09:15:00 03/02/2014 23:59:59 CLS Outpatient AMY HALEY APRN [id number] 09/15/2013 10:30:00 09/15/2013 23:59:59 CLS Outpatient AMY HALEY APRN [id number] 04/14/2013 14:56:00 04/14/2013 23:59:59 CLS Outpatient MARIPOSA BRENNER DO [id number] 04/05/2013 13:52:00 04/05/2013 23:59:59 CLS Outpatient SARI POPE APRN [id number] 02/27/2013 14:37:00 Document Registration [id number] 02/24/2013 11:36:00 Document Registration [id number] 02/21/2013 16:17:00 Document Registration [id number] 12/10/2012 09:18:00 Document Registration [id number] 12/02/2012 13:42:00 Document Registration [id number] 07/06/2017 05:37:00 07/06/2017 11:26:00 DIS Outpatient MARIAJOSE LUDWIG DO [facility] PREOP COLONOSCOPY/EGD [id number] 05/24/2017 12:53:00 05/24/2017 23:59:59 CLS Outpatient ALEX SOLER APRN [facility] RAD LT LEG SWELLING [id number] 12/13/2015 10:44:00 12/13/2015 11:49:00 DIS Emergency ROSENDO HUSSEIN [facility] ER ABSCESS [id number] 11/08/2014 17:12:00 11/08/2014 18:00:00 DIS Emergency YADIRA BERNAL MD [facility] ER R ARM ABCESS [id number] 09/30/2014 17:52:00 09/30/2014 18:00:00 DIS Emergency ARTEMIO MONTES APRN [facility] ER RASH/POSS POISON WILI [id number] 07/12/2014 22:25:00 07/12/2014 23:46:00 DIS Emergency ALPHONSO REYNOLDS DO [facility] ER CHEST PAIN [id number] 05/11/2014 17:23:00 05/11/2014 23:59:59 CLS Outpatient JOHANNA DOTY MD [facility] SDC FOREIGN BODY [id number] 04/29/2014 20:39:00 04/29/2014 23:08:00 DIS Emergency ALPHONSO REYNOLDS DO [facility] ER INSECT BITE/STING [id number] 03/04/2014 22:54:00 03/05/2014 00:37:00 DIS Emergency ANDIE MCCRAY MD [facility] ER BODY ACHE [id number] 02/10/2014 21:52:00 02/10/2014 22:13:00 DIS Emergency BIRGIT LOPEZ MD [facility] ER POSS SPIDER BITE R KNEE [id number] 03/17/2013 08:06:00 03/17/2013 10:25:00 DIS Emergency YADIRA BERNAL MD [facility] ER LEFT SIDE/ABD PAIN [id number] 02/12/2013 13:49:00 02/14/2013 18:35:00 DIS Inpatient MARIPOSA BRENNER DO [facility] 4TH CELLULITIS [id number] 11/01/2012 09:30:00 01/16/2013 00:01:00 DIS Outpatient PEDRO BATEMAN, OLVIN Romero [facility] WOUNDCARE PERISCROTAL ABSCESS [id number] 11/30/2012 23:07:00 12/01/2012 03:19:00 DIS Emergency APLHONSO REYNOLDS DO [facility] ER RT HAND RING FINGER ABSCESS [id number] 11/24/2012 00:23:00 11/24/2012 01:08:00 DIS Emergency ANDIE MCCRAY MD [facility] ER ACID REFLUX [id number] 10/12/2012 23:30:00 10/13/2012 19:20:00 DIS Outpatient PEDRO BATEMAN, OLVIN Romero [facility] PERISCROTAL ABSCESS [id number] 07/13/2017 10:00:00 PEN Preadmit MARIAJOSE LUDWIG DO [facility] ENDO RECTAL BLEEDING/REFLUX [id number] 01/17/2013 11:15:00 Document Registration [id number] 10/17/2011 13:43:00 Document Registration [id number] 06/21/2011 12:44:00 Document Registration [id number] 06/17/2011 10:02:00 Document Registration [id number] 02/05/2011 17:07:00 Document Registration [id number] 03/13/2010 09:48:00 Document Registration [id number] 03/11/2010 23:27:00 Document Registration [id number] 01/25/2010 21:30:00 Document Registration
[2017-07-13] MEDS ORDERED: LACTATED RINGERS 1,000 ML IV STA (07:17)
[2017-07-13] MEDS ORDERED: MIDAZOLAM 2 MG/2 ML (VERSED) VIAL ONE (07:25)
[2017-07-13] MEDS ORDERED: PROPOFOL INJECTION 50 ML IV ONE ×2 (07:25→08:39)
[2017-07-13] MEDS ORDERED: HURRICAINE EXT TUBE (BENZOCAINE) XX PRN (07:30)
[2017-07-13 07:36] VITALS: BP 138/90
--- NOTE | 2017-07-13 08:14 | Progress Note-Pre Operative ---
Pre-Operative Progress Note H&P Reviewed The H&P was reviewed, patient examined and no changes noted. Date Seen by Provider: Jul 13, 2017 Time Seen by Provider: 08:13 Date H&P Reviewed: Jul 13, 2017 Time H&P Reviewed: 08:13 Pre-Operative Diagnosis: blood in stools, GERD MARIAJOSE LUDWIG DO Jul 13, 2017 08:14
[2017-07-13] MEDS ORDERED: HURRICAINE EXT TUBE (BENZOCAINE) ONE (08:17)
--- NOTE | 2017-07-13 08:59 | Progress Note-Post Operative ---
Post-Operative Progess Note Surgeon (s)/Asthma Educator (s) Surgeon MARIAJOSE LUDWIG DO Asthma Educator: na Pre-Operative Diagnosis blood in stools, GERD Post-Operative Diagnosis gastritis with small antral ulcer, mucosal change rectum Procedure & Operative Findings Date of Procedure 07/13/17 Procedure Performed/Findings egd c biopsies, colonoscopy with cold biopsies rectum Anesthesia Type per assistant accounting manager Estimated Blood Loss Estimated blood loss (mL): scant Specimens/Packing Specimens Removed antrum, ge junction, rectum MARIAJOSE LUDWIG DO Jul 13, 2017 08:59
[2017-07-13] MEDS ORDERED: PANT40TA2 PO (09:03)
[2017-07-13] MEDS ORDERED: SUCR1TAB36 PO (09:03)
--- NOTE | 2017-07-13 09:04 | Discharge Inst-Simple/Standard ---
Discharge Inst-Standard Discharge Medications New, Converted or Re-Newed RX: Transmitted to Pharmacy Patient Instructions/Follow Up Plan of Care/Instructions/FU: 3 weeks Ángel Activity as Tolerated: Yes Discharge Diet: Regular Diet MARIAJOSE LUDWIG DO Jul 13, 2017 09:04
[2017-07-13 09:20] VITALS: BP 127/85
[2017-07-13 09:55] VITALS: BP 128/76
[2017-07-13 10:00] VITALS: BP 128/76
--- NOTE | 2017-07-13 13:35 | OPERATIVE REPORT ---
DATE OF SERVICE: 07/13/2017 PREOPERATIVE DIAGNOSES: Blood in stools and reflux. POSTOPERATIVE DIAGNOSES: Gastritis with small antral ulcer and mucosal changes of the rectum. PROCEDURE: EGD with biopsies, colonoscopy with cold biopsies of the rectum. SURGEON: Mariajose Neal D.O. ANESTHESIA: Per CLOUD ARCHITECT. ESTIMATED BLOOD LOSS: Scant. COMPLICATIONS: None. INDICATIONS: The patient is a 42-year-old male with history of blood in stools. He has questionable diagnosis of ulcerative colitis. He also has reflux. The patient understands risks and benefits of procedures and wished to proceed with procedures. Consent was signed in the chart. DESCRIPTION OF PROCEDURE: The patient was taken to the endoscopy suite, placed in the left lateral recumbent position. Timeout was performed. Scope was inserted into mouth, down the esophagus, stomach and into the duodenum without difficulty. There were no polyps, mass or ulcerations within the duodenum. The scope was slowly retracted back into the stomach, which was further insufflated. The antrum had some erythematous changes with small ulceration in the antrum present. Biopsy was obtained. Scope was also retroflexed noting a small hiatal hernia, no other pathology. Scope was returned to its normal position, slowly withdrawn into the esophagus, taking a biopsy of the GE junction. No other pathology noted in the esophagus and as the scope was slowly retracted out. The patient then had a colonoscopy performed. There were no palpable polyps, masses or ulcerations on rectal exam. Scope was inserted into the rectum and advanced all the way to the cecum with minimal difficulty. Prep was adequate. The terminal ileum was intubated, had normal appearance. Scope was retracted back into the colon where it was slowly withdrawn. There are no polyps, masses or ulcerations within the cecum, ascending, transverse, descending and sigmoid colon. In the rectum, some slight erythematous changes questionably inflammatory changes versus changes of the mucosa from prep. Biopsy was obtained of the rectum. Scope was then slowly retracted back until completely removed. The patient tolerated the procedure well without any complications. He was taken to recovery room in stable condition. RECOMMENDATIONS: The patient will be started on Protonix and Carafate. We will have him follow up in the office in approximately 2 to 3 weeks to discuss pathology results and see how he is doing at that time. Job ID: [id number] DocumentID: [id number] Dictated Date: 07/13/2017 09:08:10 Chronic Care Nurse Date: 07/13/2017 12:15:32 Dictated By: MARIAJOSE NEAL DO
== END 2017-07-13 10:00 | disposition home or self-care (01) ==
LOC: ENDO 06:48
PROVIDERS: ATTEND Surgery
DX: K92.1 Melena (principal); K29.70 Gastritis, unspecified, without bleeding; K25.9 Gastric ulcer, unspecified as acute or chronic, without hemorrhage or perforation; K21.9 Gastro-esophageal reflux disease without esophagitis; K44.9 Diaphragmatic hernia without obstruction or gangrene; E66.9 Obesity, unspecified; Z68.39 Body mass index [BMI] 39.0-39.9, adult

== ENCOUNTER → 2017-08-03 | Outpatient (CLI) | payer SELFPAY ==
[~2017-08-03] MED LIST changes: +PANT40TA2 PO; +SUCR1TAB36 PO
== END ==
LOC: CARD 13:34
PROVIDERS: ATTEND Internal Medicine Cardiovascular Disease
DX: R60.0 Localized edema (principal)
CPT/HCPCS: 93306

== ENCOUNTER → 2017-10-15 | Outpatient (CLI) | payer OTHER ==
[~2017-10-15] MED LIST changes: +ACET-2267 PO; +DOXY100T2 PO; +MULT1CAP14 PO
--- NOTE | 2017-10-15 08:54 | Diagnostic Imaging Report ---
PROCEDURE: US Gallbladder. TECHNIQUE: Multiple real-time grayscale images were obtained over the right upper quadrant in various projections. INDICATION: Abdominal pain. FINDINGS: Liver is enlarged at 21 cm. There is increased echogenicity throughout the liver consistent with hepatic steatosis. No discrete liver mass is identified. The gallbladder is without stones or sludge. No wall thickening or pericholecystic fluid is seen. No definite biliary ductal dilatation is identified. The pancreas is nonvisualized due to overlying bowel gas. The right kidney is unremarkable. There is no ascites. IMPRESSION: 1. Hepatomegaly and hepatic steatosis. 2. No evidence of cholelithiasis or acute cholecystitis. Dictated by: Dictated on workstation # [id number]
== END ==
LOC: RAD 07:33
PROVIDERS: ATTEND Surgery
DX: K76.0 Fatty (change of) liver, not elsewhere classified (principal); K21.0 Gastro-esophageal reflux disease with esophagitis
CPT/HCPCS: 76705

== ENCOUNTER → 2017-10-15 | Outpatient (CLI) | payer OTHER ==
--- NOTE | 2017-10-15 08:50 | Diagnostic Imaging Report ---
PROCEDURE: US Abdomen, limited. TECHNIQUE: Multiple realtime grayscale images were obtained over the abdomen in various projections. INDICATION: Left lower quadrant pain and bulging. FINDINGS: Limited abdominal ultrasound was performed to evaluate for hernia. The area of interest in the left lower quadrant was evaluated. No definite abdominal wall defect or evidence of hernia is seen. No mass or fluid collection is identified. IMPRESSION: No sonographic abnormality is detected. Dictated by: Dictated on workstation # [id number]
== END ==
LOC: RAD 08:13
PROVIDERS: ATTEND Nurse Practitioner Community Health
DX: R10.32 Left lower quadrant pain (principal)
CPT/HCPCS: 76705

== ENCOUNTER → 2017-10-22 | Outpatient (CLI) | payer OTHER ==
[~2017-10-22] MED LIST changes: +CATHETER FLUSH 10 ML SYR IV PRN
--- NOTE | 2017-10-22 13:50 | Diagnostic Imaging Report ---
INDICATION: Reflux esophagitis. FINDINGS: The patient was administered 5.33 mCi of Tc 99m Choletec and sequential imaging was performed over the right upper abdomen. There is progressive, homogeneous accumulation of radiotracer within the liver parenchyma. There is filling of the bile ducts and subsequent filling of the gallbladder. There is progressive clearance of activity from the liver parenchyma and accumulation of radiotracer within loops of small bowel. The patient was then administered a fatty meal, utilizing 8 ounces of Ensure. The gallbladder ejection fraction was calculated to be approximately 37%. (Normal values post fatty meal stimulation are 33% or greater.) IMPRESSION: 1. Hepatobiliary scan demonstrates a patent biliary tree. 2. Normal gallbladder ejection fraction of approximately 37%. Dictated by: Dictated on workstation # [id number]
== END ==
LOC: CARD 10:53
PROVIDERS: ATTEND Surgery
DX: K21.0 Gastro-esophageal reflux disease with esophagitis (principal)
CPT/HCPCS: 78227

== ENCOUNTER 2017-10-25 04:31 | Observation (INO) | payer OTHER ==
[~2017-10-25] VITALS: Ht 175.3 cm; Wt 121.5 kg
[~2017-10-25 04:31] MED LIST changes: -ACET-2267 PO; -CATHETER FLUSH 10 ML SYR IV PRN; -DOXY100T2 PO; -MULT1CAP14 PO
--- OUTSIDE RECORDS SUMMARY | 2017-10-25 04:37 | XMS REPORT ---
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 Role Phone AMY HALEY Unavailable PROBLEMS Type Condition ICD9-CM Code ZUK41-DF Code Onset Dates Condition Status SNOMED Code Problem Other chronic pain G89.29 Active 39639704 Problem Morbid (severe) obesity due to excess calories E66.01 Active 21311963195333 Problem Essential hypertension I10 Active 67104464 Problem Other ulcerative colitis without complication K51.80 Active 05908723 Problem Gastroesophageal reflux disease with esophagitis K21.0 Active 272806618 Problem Body mass index (BMI) of 45.0-49.9 in adult Z68.42 Active 291614139 Problem GERD with esophagitis K21.0 Active 794376045 ALLERGIES No Information ENCOUNTERS Encounter Location Date Diagnosis [facility] [id number] [place] [address] 33071- 8894 Sep, [facility] [address] [address]- [address] Sep, [facility] [id number] [place] [address] 78598- 2017 Aug, [facility] [address] 85164- 7972 Aug, [facility] [id number] [place] [address] 67157- 0740 Jul, Pain in right shoulder M25.511 [facility] [id number] [place] [address] 20329- 6745 05 Jul, 2017 [facility] [id number] [place] [address] 85583 -8739 Jul, Localized edema R60.0 and BMI 40.0-44.9, adult Z68.41 [place] [id number] [place] [address] 44459- 6344 02 Jul, 2017 [place] [address] 48767- 0939 Jun, Edema of left lower extremity R60.0 ; Essential hypertension I10 ; Family history of coronary artery disease Z82.49 ; Morbid ( severe) obesity due to excess calories E66.01 and Body mass index (BMI) of 45.0- 49.9 in adult Z68.42 [place] [id number] [place] [address] 15942- 9989 16 Jun, 2017 Other chronic pain G89.29 [place] [address] 53925- 7106 15 Jun, 2017 Pain in right shoulder M25.511 [place] [address] 97327- 9638 Jun, Other ulcerative colitis without complication K51.80 [facility] [id number] [place] [address] 80717 -6344 May, [place] [address] 35382- 5902 May, GERD with esophagitis K21.0 ; Other ulcerative colitis without complication K51.80 and Other chest pain R07.89 [place] [id number] [place] [address] 12586- 4565 May, [facility] [id number] [place] [address] 22807 -4349 May, Left leg swelling M79.89 [place] [address] 82192- 2596 14 Apr, 2017 Pain in right shoulder M25.511 [place] [address] 29321- 6149 14 Apr, 2017 Pain in right shoulder M25.511 [facility] [address] [facility] [id number], [place] [address] Mar, [facility] [address] [facility] [id number], [place] [address] Mar, Pain in right shoulder M25.511 [facility] [address] [facility] [id number], [place] [address] 7836 Mar, [facility] [address] [facility] [id number] [place] [address] 61998- 3696 Mar, [facility] [address] [facility] [id number], [place] [address] 5096 Feb, Pain in right shoulder M25.511 [facility] [address] [facility] [id number], [place] [address]- 0206 Jan, Pain in right shoulder M25.511 [facility] [id number] [place] [address] 10520- 1286 Jan, [facility] [address] [facility] [id number], [place] [address]- 4379 Dec, Pain in right shoulder M25.511 [facility] [address], [place] [address] 0946 Nov, Pain in right shoulder M25.511 [facility] [address], [place] [address] 1686 Nov, Pain in right shoulder M25.511 [facility] [address] [facility] [id number], [place] [address]- 7046 October, Pain in right shoulder M25.511 [facility] [id number], [place] [address]- 6916 Sep, Pain in right shoulder M25.511 [facility] [id number], [place] [address] 7906 Aug, Pain in right shoulder M25.511 [facility] [address], [place] [address] 9132 10 Jul, 2016 Pain in right shoulder M25.511 [facility] [id number] [place] [address] 50840 2546 10 Jul, 2016 Pain in left shoulder M25.512 [facility] [address], [place] [address]- 6566 10 Jul, 2016 Other chronic pain G89.29 [facility] [id number] [place] [address] 16266 2542 09 Jul, 2016 Pain in right shoulder M25.511 ; Other chronic pain G89.29 ; Pain in left shoulder M25.512 and Gastroesophageal reflux disease with esophagitis K21.0 [facility] [address], [place] [address]- 5585 Jun, [facility] [id number] [place] [address] 03945- 3777 May, [facility] [id number] [place] [address] 86882- 3356 May, [facility] [id number] [place] [address] 36129- 3136 Apr, [facility] [address], [place] [address]- 2547 Mar, [facility] [address], [place] [address] 2546 22 Feb, 2016 [facility] [address], [place] [address] 2546 13 Feb, 2016 [facility] [id number] [place] [address] 60781 2545 12 Feb, 2016 [facility] [address], [place] [address] 2546 06 Feb, 2016 [facility] [id number] [place] [address] 87129 2546 Jan, [facility] [id number] [place] [address] 25396- 0706 Dec, Pain in left shoulder M25.512 [facility] [id number] [place] [address] 54112- 1916 Dec, Gastroesophageal reflux disease, esophagitis presence not specified K21.9 [facility] [id number] [place] [address] 39704- 8436 Nov, Pain in left shoulder M25.512 [facility] [id number] [place] [address] 62729- 7050 October, Pain in left shoulder M25.512 [facility] [id number] [place] [address] 41857- 9411 Sep, Shoulder pain, left M25.512 [facility] [id number] [place] [address] 52626- 8430 Aug, Pain in right shoulder M25.511 and Other chronic pain G89.29 [facility] [id number] [place] [address] 99639- 8513 Aug, Shoulder pain, right M25.511 and GERD (gastroesophageal reflux disease) K21.9 [facility] [id number] [place] [address] 67995- 3203 Nov, [facility] [id number] [place] [address] 24286- 0943 Sep, [facility] [id number] [place] [address] 67806- 5779 Sep, [facility] [id number] [place] [address] 63605- 6400 Jul, [facility] [id number] [place] [address] 78406- 1462 Jul, [facility] [id number] [place] [address] 88287- 4425 Jul, [facility] [place] [facility] [address] [id number] [place] [address]- 6705 Jul, [facility] [place] [facility] [address] [id number] [place] [address]- 1209 Jul, [facility] [place] [facility] [address] [id number] [place] [address]- 1276 Jul, [facility] [place] [facility] [address] [id number] [place] [address]- 9134 Jun, [facility] [place] [facility] [address] [id number] [place] [address]- 6337 Jun, [facility] [place] [facility] [address] [id number] [place] [address]- 3264 Apr, [facility] [place] [facility] [address] [id number] [place] [address]- 4372 Apr, [facility] [place] [facility] [address] [id number] [place] [address]- 8929 Apr, [facility] [place] [facility] [address] [id number] [place] [address]- 5040 Feb, [facility] [place] [facility] [address] [id number] [place] [address]- 2788 Feb, [facility] [place] [facility] [address] [id number] [place] [address]- 7558 Feb, [facility] [place] [facility] [address] [id number], [place] [address]- 5180 Feb, [facility] [place] [facility] [address] [id number] [place] [address]- 6196 Aug, [facility] [place] [facility] [address] [id number] [place] [address]- 1764 Aug, [facility] [place] [facility] [address] [id number], [place] [address]- 2023 Mar, [facility] [place] [facility] [address] [id number], [place] [address]- 5394 Mar, [facility] [address] [id number] [place] [address]- 5916 Mar, [facility] [place] [facility] [address] [id number] [place] [address]- 6366 Mar, [facility] [place] [facility] [address] [id number] [place] [address]- 0554 Feb, [facility] [place] [facility] [address] [id number] [place] [address]- 4094 Feb, [facility] [place] [facility] [address] [id number] [place] [address]- 1187 Feb, [facility] [place] [facility] [address] [id number] [place] [address]- 7516 Jan, [facility] [address] [id number] [place] [address]- 6591 Jan, [facility] [place] [facility] [address] [id number] [place] [address]- 0747 Dec, [facility] [address] [id number] [place] [address]- 5490 Dec, [facility] [place] [facility] [address] [id number] [place] [address]- 4023 Nov, [facility] [place] [facility] [address] [id number] [place] [address]- 5594 Nov, [facility] [place] [facility] [address] [id number] [place] [address]- 8683 Jan, [facility] [place] [facility] [address] [id number] [place] [address]- 4430 Jan, [facility] [place] [facility] [address] [id number] [place] [address]- 2827 Aug, [facility] [place] [facility] [address] [id number] [place] [address]- 1514 Jun, [facility] [place] [facility] [address] [facility] [id number] [place] [address]- 8316 16 Jun, 2011 [facility] [address] [facility] [id number], [place] [address]- 8495 Apr, [facility] [address] [facility] [id number] [place] [address]- 6966 Feb, IMMUNIZATIONS No Known Immunizations SOCIAL HISTORY Never Assessed REASON FOR VISIT Controlled Med Refill 01/18/17 PLAN OF CARE VITAL SIGNS MEDICATIONS Medication Instructions Dosage Frequency Start Date End Date Duration Status Hydrocodone-Acetaminophen 5-325 MG Orally every 6 hrs- Must last 30 days 1 tablet as needed Dec, 28 days Active RESULTS No Results PROCEDURES No Known procedures INSTRUCTIONS MEDICATIONS ADMINISTERED No Known Medications MEDICAL (GENERAL) HISTORY Type Description Date Medical History colitis Medical History right shoulder pain Surgical History Appendectomy Surgical History Abscess drained and removed Hospitalization History surgery Hospitalization History dehydration
--- OUTSIDE RECORDS SUMMARY | 2017-10-25 04:37 | XMS REPORT ---
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 Name Role Phone AMY HALEY Unavailable PROBLEMS Type Condition ICD9-CM Code SAU40-BR Code Onset Dates Condition Status SNOMED Code Problem Other chronic pain G89.29 Active 40300792 Problem Other ulcerative colitis without complication K51.80 Active 05380647 Problem Gastroesophageal reflux disease with esophagitis K21.0 Active 776358955 Problem Other chronic pain G89.29 Active 34521832 Problem Body mass index (BMI) of 40.0-44.9 in adult Z68.41 Active 210061320 Problem Morbid (severe) obesity due to excess calories E66.01 Active 82196824797224 Problem GERD with esophagitis K21.0 Active 573304639 Problem Body mass index (BMI) of 45.0-49.9 in adult Z68.42 Active 575771630 Problem Essential hypertension I10 Active 88564396 ALLERGIES No Information ENCOUNTERS Encounter Location Date Diagnosis [place] [id number] [place] [address] 24895- 1409 Sep, Other chronic pain G89.29 ; Pain in left knee M25.562 ; Pain in right knee M25.561 and Abdominal pain, left lower quadrant R10.32 [place] [address] [place] [id number] [place] [address] 21457- 7948 Sep, Edema of left lower extremity R60.0 ; Essential hypertension I10 ; Morbid (severe) obesity due to excess calories E66.01 ; Body mass index (BMI) of 40.0-44.9 in adult Z68.41 and Hiatal hernia K44.9 [place] [id number] [place] [address] 83240- 3793 Aug, [place] [address] [place] [address]- 2271 Aug, [place] [id number] [place] [address] 15246- 3426 Jul, Pain in right shoulder M25.511 [place] [address] 56237- 7618 Jul, [facility] [address] 86290 -4416 Jul, Localized edema R60.0 and BMI 40.0-44.9, adult Z68.41 [place] [address] 24937- 4055 Jul, [place] [address] 74398- 7778 Jun, Edema of left lower extremity R60.0 ; Essential hypertension I10 ; Family history of coronary artery disease Z82.49 ; Morbid ( severe) obesity due to excess calories E66.01 and Body mass index (BMI) of 45.0- 49.9 in adult Z68.42 [place] [address] 01252- 1881 Jun, Other chronic pain G89.29 [place] [address] 40809- 0611 Jun, Pain in right shoulder M25.511 [place] [id number] [place] [address] 61625- 3558 Jun, Other ulcerative colitis without complication K51.80 [facility] [id number] [place] [address] 21321 -0441 May, [place] [address] 47257- 5988 May, GERD with esophagitis K21.0 ; Other ulcerative colitis without complication K51.80 and Other chest pain R07.89 [place] [address] 24079- 0666 May, [facility] [id number] [place] [address] 07923 -2796 May, Left leg swelling M79.89 [facility] [id number] [place] [address] 85860- 3566 14 Apr, 2017 Pain in right shoulder M25.511 [facility] [id number] [place] [address] 60122- 1866 Apr, Pain in right shoulder M25.511 [facility] [id number] [place] [address] 88409- 3546 Mar, [facility] [id number] [place] [address] 05051- 9216 Mar, Pain in right shoulder M25.511 [facility] [id number] [place] [address] 33927- 1466 Mar, [facility] [id number] [place] [address] 24579- 2207 Mar, [facility] [id number] [place] [address] 26130- 1232 Feb, Pain in right shoulder M25.511 [facility] [id number] [place] [address] 89459- 5896 Jan, Pain in right shoulder M25.511 [facility] [id number] [place] [address] 82729- 2856 Jan, [facility] [id number] [place] [address] 64199- 5528 Dec, Pain in right shoulder M25.511 [facility] [id number] [place] [address] 11470- 4616 Nov, Pain in right shoulder M25.511 [facility] [id number] [place] [address] 66867- 8106 Nov, Pain in right shoulder M25.511 [facility] [address] [address]- 7971 October, Pain in right shoulder M25.511 [facility] [id number] [address]- 7426 Sep, Pain in right shoulder M25.511 [facility] [address] [address]- 2166 Aug, Pain in right shoulder M25.511 [facility] [id number] [address] 2546 Jul, Pain in right shoulder M25.511 [facility] [id number] [place] [address] 13096- 3756 Jul, Pain in left shoulder M25.512 [facility] [id number] [place] [address] 17277- 9206 Jul, Other chronic pain G89.29 [facility] [id number] [place] [address] 32166- 4617 Jul, Pain in right shoulder M25.511 ; Other chronic pain G89.29 ; Pain in left shoulder M25.512 and Gastroesophageal reflux disease with esophagitis K21.0 [facility] [address], [place] [address]- 2296 Jun, [facility] [address], [place] [address]- 3686 May, [facility] [address], [place] [address] 2546 May, [facility] [id number] [place] [address] 37629- 4996 Apr, [facility] [address], [place] [address] 2546 Mar, [facility] [address], [place] [address]- 5149 Feb, [facility] [address], [place] [address]- 2285 13 Feb, 2016 [facility] [id number] [place] [address] 21960- 3540 12 Feb, 2016 [facility] [id number] [place] [address] 17998- 2437 06 Feb, 2016 [facility] [id number] [place] [address] 71377- 6446 Jan, [facility] [id number] [place] [address] 87457- 4734 Dec, Pain in left shoulder M25.512 [facility] [id number] [place] [address] 58088- 4893 Dec, Gastroesophageal reflux disease, esophagitis presence not specified K21.9 [facility] [id number] [place] [address] 72191- 3983 Nov, Pain in left shoulder M25.512 [facility] [id number] [place] [address] 63724- 2874 October, Pain in left shoulder M25.512 [facility] [id number] [place] [address] 42009- 3072 Sep, Shoulder pain, left M25.512 [facility] [id number] [place] [address] 90444- 9732 Aug, Pain in right shoulder M25.511 and Other chronic pain G89.29 [facility] [id number] [place] [address] 83215- 7507 07 Aug, 2015 Shoulder pain, right M25.511 and GERD (gastroesophageal reflux disease) K21.9 [facility] [id number] [place] [address] 32269- 9580 08 Nov, 2014 [facility] [id number] [place] [address] 63984- 3478 14 Sep, 2014 [facility] [place] [facility] [address] [id number] [place] [address]- 8481 13 Sep, 2014 [facility] [place] [facility] [address] [id number] [place] [address]- 8306 23 Jul, 2014 [facility] [place] [facility] [address] [id number] [place] [address]- 9865 Jul, [facility] [place] [facility] [address] [id number] [place] [address]- 8598 Jul, [facility] [place] [facility] [address] [id number] [place] [address]- 5044 Jul, [facility] [place] [facility] [address] [id number] [place] [address]- 4111 Jul, [facility] [place] [facility] [address] [id number] [place] [address]- 5431 Jul, [facility] [place] [facility] [address] [id number] [place] [address]- 0169 Jun, [facility] [place] [facility] [address] [id number] [place] [address]- 7936 Jun, [facility] [place] [facility] [address] [id number] [place] [address]- 3487 Apr, [facility] [place] [facility] [address] [id number] [address]- 7785 Apr, [facility] [place] [facility] [address] [id number], [place] [address]- 1478 Apr, [facility] [place] [facility] [address] [id number] [place] [address]- 3867 12 Feb, 2014 [facility] [place] [facility] [address] [id number] [place] [address]- 6531 12 Feb, 2014 [facility] [place] [facility] [address] [id number] [place] [address]- 6123 11 Feb, 2014 [facility] [place] [facility] [address] [id number] [place] [address]- 0027 11 Feb, 2014 [facility] [place] [facility] [address] [id number] [place] [address]- 3526 Aug, [facility] [place] [facility] [address] [id number] [place] [address]- 1308 Aug, [facility] [place] [facility] [address] [id number] [place] [address]- 7101 Mar, [facility] [place] [facility] [address] [id number] [place] [address]- 8938 Mar, [facility] [place] [facility] [address] [id number] [place] [address]- 5729 Mar, [facility] [place] [facility] [address] [id number] [place] [address]- 3702 Mar, [facility] [place] [facility] [address] [id number] [place] [address]- 3359 Feb, [facility] [place] [facility] [address] [id number] [place] [address]- 0644 06 Feb, 2013 [facility] [place] [facility] [address] [id number] [place] [address]- 9573 Feb, [facility] [place] [facility] [address] [id number] [place] [address]- 4163 30 Jan, 2013 [facility] [place] [facility] [address] [id number] [place] [address]- 7612 Jan, [facility] [place] [facility] [address] [id number] [place] [address]- 3690 Dec, [facility] [place] [facility] [address] [id number] [place] [address]- 1255 15 Dec, 2012 [facility] [place] [facility] [address] [id number] [place] [address]- 0104 Nov, [facility] [place] [facility] [address] [id number] [place] [address]- 5129 Nov, [facility] [id number] [address]- 6200 Jan, [facility] [id number] [address]- 1140 Jan, [facility] [address], [place] [address]- 8526 Aug, [facility] [address], [place] [address]- 8749 Jun, [facility] [address], [place] [address]- 5645 Jun, [facility] [address], [place] [address]- 5367 Apr, [facility] [id number], [place] [address]- 9840 Feb, IMMUNIZATIONS No Known Immunizations SOCIAL HISTORY Never Assessed REASON FOR VISIT Controlled Med Refill PLAN OF CARE VITAL SIGNS MEDICATIONS Medication Instructions Dosage Frequency Start Date End Date Duration Status Hydrocodone-Acetaminophen 5-325 MG Orally every 6 hrs- Must last 30 days 1 tablet as needed Feb, 28 days Active RESULTS No Results PROCEDURES No Known procedures INSTRUCTIONS MEDICATIONS ADMINISTERED No Known Medications MEDICAL (GENERAL) HISTORY Type Description Date Medical History colitis Medical History right shoulder pain Surgical History Appendectomy Surgical History Abscess drained and removed Hospitalization History surgery Hospitalization History dehydration
--- OUTSIDE RECORDS SUMMARY | 2017-10-25 04:37 | XMS REPORT ---
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 Name Role Phone AMY HALEY Unavailable PROBLEMS Type Condition ICD9-CM Code KLY49-QR Code Onset Dates Condition Status SNOMED Code Problem Other chronic pain G89.29 Active 35236124 Problem Morbid (severe) obesity due to excess calories E66.01 Active 95414271528323 Problem Essential hypertension I10 Active 54987532 Problem Other ulcerative colitis without complication K51.80 Active 68118826 Problem Gastroesophageal reflux disease with esophagitis K21.0 Active 528142888 Problem Body mass index (BMI) of 45.0-49.9 in adult Z68.42 Active 676601216 Problem GERD with esophagitis K21.0 Active 181266469 ALLERGIES No Information ENCOUNTERS Encounter Location Date Diagnosis [facility] [id number] [place] [address] 52972- 9900 Sep, [facility] [address] 87107- 6314 Sep, [facility] [id number] [place] [address] 63460- 3420 Aug, [facility] [address] 18363- 0079 Aug, [facility] [id number] [place] [address] 92910- 4690 Jul, Pain in right shoulder M25.511 [facility] [id number] [place] [address] 73965- 8061 05 Jul, 2017 [facility] [id number] [place] [address] 49459 -9317 Jul, Localized edema R60.0 and BMI 40.0-44.9, adult Z68.41 [place] [id number] [place] [address] 06143- 6155 02 Jul, 2017 [place] [address] 04864- 5593 Jun, Edema of left lower extremity R60.0 ; Essential hypertension I10 ; Family history of coronary artery disease Z82.49 ; Morbid ( severe) obesity due to excess calories E66.01 and Body mass index (BMI) of 45.0- 49.9 in adult Z68.42 [place] [id number] [place] [address] 17168- 5626 16 Jun, 2017 Other chronic pain G89.29 [place] [address] 39310- 7387 15 Jun, 2017 Pain in right shoulder M25.511 [place] [address] 73651- 0915 Jun, Other ulcerative colitis without complication K51.80 [facility] [id number] [place] [address] 19350 -0677 May, [place] [address] 72157- 1493 May, GERD with esophagitis K21.0 ; Other ulcerative colitis without complication K51.80 and Other chest pain R07.89 [place] [id number] [place] [address] 19374- 3990 May, [facility] [id number] [place] [address] 39738 -8410 May, Left leg swelling M79.89 [place] [address] 40766- 5909 14 Apr, 2017 Pain in right shoulder M25.511 [place] [address] 87441- 5412 14 Apr, 2017 Pain in right shoulder M25.511 [facility] [address] [facility] [id number] [address]- 3931 Mar, [facility] [address] [facility] [id number], [place] [address]- 8386 Mar, Pain in right shoulder M25.511 [facility] [address] [facility] [id number], [place] [address]- 8906 Mar, [facility] [address] [facility] [id number] [place] [address] 81389- 7536 Mar, [facility] [address] [facility] [id number], [place] [address]- 7386 Feb, Pain in right shoulder M25.511 [facility] [address] [facility] [id number], [place] [address]- 6466 Jan, Pain in right shoulder M25.511 [facility] [id number] [place] [address] 79218- 5846 Jan, [facility] [address] [facility] [id number], [place] [address]- 5586 Dec, Pain in right shoulder M25.511 [facility] [address] [address]- 8456 Nov, Pain in right shoulder M25.511 [facility] [address], [place] [address]- 6336 Nov, Pain in right shoulder M25.511 [facility] [address] [facility] [id number][place] [address]- 3926 October, Pain in right shoulder M25.511 [facility] [id number] [address]- 5876 Sep, Pain in right shoulder M25.511 [facility] [address] [id number], [place] [address]- 7176 Aug, Pain in right shoulder M25.511 [facility] [address], [place] [address]- 4123 10 Jul, 2016 Pain in right shoulder M25.511 [facility] [id number] [place] [address] 28341 2546 10 Jul, 2016 Pain in left shoulder M25.512 [facility] [address], [place] [address]- 0886 10 Jul, 2016 Other chronic pain G89.29 [facility] [id number] [place] [address] 09096 254 09 Jul, 2016 Pain in right shoulder M25.511 ; Other chronic pain G89.29 ; Pain in left shoulder M25.512 and Gastroesophageal reflux disease with esophagitis K21.0 [facility] [address], [place] [address]- 5928 Jun, [facility] [id number] [place] [address] 66397- 1088 May, [facility] [id number] [place] [address] 12020- 6241 May, [facility] [id number] [place] [address] 96941- 9301 Apr, [facility] [address] [address]- 2542 Mar, [facility] [address], [place] [address] 2546 22 Feb, 2016 [facility] [address], [place] [address] 2546 13 Feb, 2016 [facility] [id number] [place] [address] 50676 2541 12 Feb, 2016 [facility] [address], [place] [address] 2546 06 Feb, 2016 [facility] [id number] [place] [address] 32550 2546 Jan, [facility] [id number] [place] [address] 94890- 0930 Dec, Pain in left shoulder M25.512 [facility] [id number] [place] [address] 54231- 5046 Dec, Gastroesophageal reflux disease, esophagitis presence not specified K21.9 [facility] [id number] [place] [address] 88157- 4610 Nov, Pain in left shoulder M25.512 [facility] [id number] [place] [address] 41817- 1744 October, Pain in left shoulder M25.512 [facility] [id number] [place] [address] 52544- 6495 Sep, Shoulder pain, left M25.512 [facility] [id number] [place] [address] 53289- 6109 Aug, Pain in right shoulder M25.511 and Other chronic pain G89.29 [facility] [id number] [place] [address] 56110- 2910 Aug, Shoulder pain, right M25.511 and GERD (gastroesophageal reflux disease) K21.9 [facility] [id number] [place] [address] 17315- 6103 Nov, [facility] [id number] [place] [address] 68894- 9539 Sep, [facility] [id number] [place] [address] 50902- 5345 Sep, [facility] [id number] [place] [address] 99503- 2764 Jul, [facility] [id number] [place] [address] 11593- 9655 Jul, [facility] [id number] [place] [address] 29662- 5228 Jul, [facility] [place] [facility] [address] [id number] [place] [address]- 5262 Jul, [facility] [place] [facility] [address] [id number] [place] [address]- 2910 Jul, [facility] [place] [facility] [address] [id number] [place] [address]- 9047 Jul, [facility] [place] [facility] [address] [id number] [place] [address]- 5058 Jun, [facility] [place] [facility] [address] [id number] [place] [address]- 4084 Jun, [facility] [place] [facility] [address] [id number] [place] [address]- 1668 Apr, [facility] [place] [facility] [address] [id number] [place] [address]- 8042 Apr, [facility] [place] [facility] [address] [id number] [place] [address]- 4077 Apr, [facility] [place] [facility] [address] [id number] [place] [address]- 3539 Feb, [facility] [place] [facility] [address] [id number] [place] [address] Feb, [facility] [place] [facility] [address] [id number] [place] [address] Feb, [facility] [place] [facility] [address] [id number], [place] [address] Feb, [facility] [place] [facility] [address] [id number] [place] [address] Aug, [facility] [place] [facility] [address] [id number] [place] [address] Aug, [facility] [place] [facility] [address] [id number], [place] [address] Mar, [facility] [place] [facility] [address] [id number], [place] [address] Mar, [facility] [address] [id number] [place] [address] Mar, [facility] [place] [facility] [address] [id number] [place] [address] Mar, [facility] [place] [facility] [address] [id number] [place] [address] Feb, [facility] [place] [facility] [address] [id number] [place] [address] Feb, [facility] [place] [facility] [address] [id number] [place] [address] Feb, [facility] [place] [facility] [address] [id number] [place] [address] Jan, [facility] [address] [id number] [place] [address] Jan, [facility] [place] [facility] [address] [id number] [place] [address] Dec, [facility] [address] [id number] [place] [address] Dec, [facility] [place] [facility] [address] [id number] [place] [address] Nov, [facility] [place] [facility] [address] [id number] [place] [address] Nov, [facility] [place] [facility] [address] [id number] [place] [address] Jan, [facility] [place] [facility] [address] [id number] [place] [address] Jan, [facility] [place] [facility] [address] [id number] [place] [address] Aug, [facility] [place] [facility] [address] [id number] [place] [address] Jun, [facility] [place] [facility] [address] [facility] [id number] [place] [address] 16 Jun, 2011 [facility] [address] [facility] [id number] [address] Apr, [facility] [address] [facility] [id number] [place] [address] 17 Feb, 2010 IMMUNIZATIONS No Known Immunizations SOCIAL HISTORY Never Assessed REASON FOR VISIT Controlled Med Refill 12/21 PLAN OF CARE VITAL SIGNS MEDICATIONS Medication [...]
--- OUTSIDE RECORDS SUMMARY | 2017-10-25 04:38 | XMS REPORT ---
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 Name Role Phone AMY HALEY Unavailable PROBLEMS Type Condition ICD9-CM Code VMK16-IZ Code Onset Dates Condition Status SNOMED Code Problem Other chronic pain G89.29 Active 77847805 Problem Morbid (severe) obesity due to excess calories E66.01 Active 04772357914595 Problem Essential hypertension I10 Active 95892945 Problem Other ulcerative colitis without complication K51.80 Active 08186079 Problem Gastroesophageal reflux disease with esophagitis K21.0 Active 357100798 Problem Body mass index (BMI) of 45.0-49.9 in adult Z68.42 Active 839372431 Problem GERD with esophagitis K21.0 Active 394698511 ALLERGIES No Information ENCOUNTERS Encounter Location Date Diagnosis [facility] [id number] [place] [address] 87422- 3785 Sep, [facility] [address] [address]- [address]137 Sep, [facility] [id number] [place] [address] 87871- 5574 Aug, [facility] [address] 82226- 5903 Aug, [facility] [id number] [place] [address] 65341- 4174 Jul, Pain in right shoulder M25.511 [facility] [id number] [place] [address] 77627- 9079 05 Jul, 2017 [facility] [id number] [place] [address] 51389 -2892 Jul, Localized edema R60.0 and BMI 40.0-44.9, adult Z68.41 [facility] [id number] [place] [address] 33562- 4193 02 Jul, 2017 [place] [address] 28784- 4385 Jun, Edema of left lower extremity R60.0 ; Essential hypertension I10 ; Family history of coronary artery disease Z82.49 ; Morbid ( severe) obesity due to excess calories E66.01 and Body mass index (BMI) of 45.0- 49.9 in adult Z68.42 [facility] [id number] [place] [address] 18019- 0168 16 Jun, 2017 Other chronic pain G89.29 [place] [address] 90904- 6035 15 Jun, 2017 Pain in right shoulder M25.511 [place] [address] 70885- 0351 Jun, Other ulcerative colitis without complication K51.80 [facility] [id number] [place] [address] 89567 -2090 May, [facility] [address] 13425- 2399 May, GERD with esophagitis K21.0 ; Other ulcerative colitis without complication K51.80 and Other chest pain R07.89 [facility] [id number] [place] [address] 92630- 0558 May, [facility] [id number] [place] [address] 87748 -3806 May, Left leg swelling M79.89 [place] [address] 22300- 1945 14 Apr, 2017 Pain in right shoulder M25.511 [place] [address] 12690- 6728 14 Apr, 2017 Pain in right shoulder M25.511 [facility] [address] [facility] [id number], [place] [address] Mar, [facility] [address] [facility] [id number], [place] [address] 5156 Mar, Pain in right shoulder M25.511 [facility] [address] [facility] [id number], [place] [address] 6766 Mar, [facility] [address] [facility] [id number] [place] [address] 78122- 5596 Mar, [facility] [address] [facility] [id number], [place] [address] 3116 Feb, Pain in right shoulder M25.511 [facility] [address] [facility] [id number][place] [address]- 1306 Jan, Pain in right shoulder M25.511 [facility] [id number] [place] [address] 80659- 8916 Jan, [facility] [address] [facility] [id number], [place] [address]- 1411 Dec, Pain in right shoulder M25.511 [facility] [address] [address] 8116 Nov, Pain in right shoulder M25.511 [facility] [address], [place] [address] 4616 Nov, Pain in right shoulder M25.511 [facility] [address] [facility] [id number], [place] [address] 7956 October, Pain in right shoulder M25.511 [facility] [id number] [address] 2326 Sep, Pain in right shoulder M25.511 [facility] [address] [id number] [address] 6736 Aug, Pain in right shoulder M25.511 [facility] [address], [place] [address]- 0392 10 Jul, 2016 Pain in right shoulder M25.511 [facility] [address] [place] [address] 18125 2546 10 Jul, 2016 Pain in left shoulder M25.512 [facility] [address], [place] [address]- 7546 10 Jul, 2016 Other chronic pain G89.29 [facility] [id number] [place] [address] 24214 2542 09 Jul, 2016 Pain in right shoulder M25.511 ; Other chronic pain G89.29 ; Pain in left shoulder M25.512 and Gastroesophageal reflux disease with esophagitis K21.0 [facility] [address], [place] [address]- 3222 Jun, [facility] [id number] [place] [address] 02168- 7222 May, [facility] [address] [place] [address] 75304- 1648 May, [facility] [id number] [place] [address] 48371- 6488 Apr, [facility] [address], [place] [address]- 2549 Mar, [facility] [address], [place] [address] 2546 22 Feb, 2016 [facility] [address], [place] [address] 2546 13 Feb, 2016 [facility] [id number] [place] [address] 98807 2543 12 Feb, 2016 [facility] [address], [place] [address] 2546 06 Feb, 2016 [facility] [address] [place] [address] 38666 2546 Jan, [facility] [id number] [place] [address] 11155- 7410 Dec, Pain in left shoulder M25.512 [facility] [id number] [place] [address] 32629- 4436 Dec, Gastroesophageal reflux disease, esophagitis presence not specified K21.9 [facility] [id number] [place] [address] 24039- 9734 Nov, Pain in left shoulder M25.512 [facility] [id number] [place] [address] 49144- 3203 October, Pain in left shoulder M25.512 [facility] [id number] [place] [address] 37997- 9683 Sep, Shoulder pain, left M25.512 [facility] [id number] [place] [address] 97685- 9831 Aug, Pain in right shoulder M25.511 and Other chronic pain G89.29 [facility] [id number] [place] [address] 91631- 4664 Aug, Shoulder pain, right M25.511 and GERD (gastroesophageal reflux disease) K21.9 [facility] [id number] [place] [address] 72706- 7248 Nov, [facility] [id number] [place] [address] 79959- 3116 Sep, [facility] [id number] [place] [address] 14438- 2009 Sep, [facility] [id number] [place] [address] 29086- 1700 Jul, [facility] [id number] [place] [address] 31964- 7621 Jul, [facility] [id number] [place] [address] 80113- 6387 Jul, [facility] [place] [facility] [address] [id number] [place] [address]- 6374 Jul, [facility] [place] [facility] [address] [id number] [place] [address]- 4377 Jul, [facility] [place] [facility] [address] [id number] [place] [address]- 0351 Jul, [facility] [place] [facility] [address] [id number] [place] [address]- 0502 Jun, [facility] [place] [facility] [address] [id number] [place] [address]- 9403 Jun, [facility] [place] [facility] [address] [id number] [place] [address]- 7011 Apr, [facility] [place] [facility] [address] [id number] [place] [address]- 9622 Apr, [facility] [place] [facility] [address] [id number] [place] [address]- 6932 Apr, [facility] [place] [facility] [address] [id number] [place] [address]- 5037 Feb, [facility] [place] [facility] [address] [id number] [place] [address]- 8432 Feb, [facility] [place] [facility] [address] [id number] [place] [address]- 7052 Feb, [facility] [place] [facility] [address] [id number], [place] [address]- 8973 Feb, [facility] [place] [facility] [address] [id number] [place] [address]- 8168 Aug, [facility] [place] [facility] [address] [id number] [place] [address]- 9517 Aug, [facility] [place] [facility] [address] [id number], [place] [address]- 1359 Mar, [facility] [place] [facility] [address] [id number], [place] [address]- 0493 Mar, [facility] [address] [id number] [place] [address]- 8448 Mar, [facility] [place] [facility] [address] [id number] [place] [address]- 8988 Mar, [facility] [place] [facility] [address] [id number] [place] [address]- 9315 Feb, [facility] [place] [facility] [address] [id number] [place] [address]- 0812 Feb, [facility] [place] [facility] [address] [id number] [place] [address]- 7876 Feb, [facility] [place] [facility] [address] [id number] [place] [address]- 2901 Jan, [facility] [address] [id number] [place] [address]- 7868 Jan, [facility] [place] [facility] [address] [id number] [place] [address]- 6112 Dec, [facility] [address] [id number] [place] [address]- 1829 Dec, [facility] [place] [facility] [address] [id number] [place] [address]- 8243 Nov, [facility] [place] [facility] [address] [id number] [place] [address]- 3152 Nov, [facility] [place] [facility] [address] [id number] [place] [address]- 0790 Jan, [facility] [place] [facility] [address] [id number] [place] [address]- 6867 Jan, [facility] [place] [facility] [address] [id number] [place] [address]- 7840 Aug, [facility] [place] [facility] [address] [id number] [place] [address]- 7457 Jun, [facility] [place] [facility] [address] [facility] [id number] [place] [address]- 2546 16 Jun, 2011 [facility] [address] [facility] [id number], [place] [address]- 7966 Apr, [facility] [address] [facility] [id number] [place] [address]- 7076 17 Feb, 2010 IMMUNIZATIONS No Known Immunizations SOCIAL HISTORY Never Assessed REASON FOR VISIT Medication refill request PLAN OF CARE VITAL SIGNS MEDICATIONS Medication Instructions Dosage Frequency Start Date End Date Duration Status Bactrim DS 800-160 MG Orally 2 times a day 1 tablet 12h Jan, Jan, 10 day(s) Active RESULTS No Results PROCEDURES No Known procedures INSTRUCTIONS MEDICATIONS ADMINISTERED No Known Medications MEDICAL (GENERAL) HISTORY Type Description Date Medical History colitis Medical History right shoulder pain Surgical History Appendectomy Surgical History Abscess drained and removed Hospitalization History surgery Hospitalization History dehydration
--- OUTSIDE RECORDS SUMMARY | 2017-10-25 04:38 | XMS REPORT ---
Author Author AMY HALEY Organization [facility] Address [address] [place] [address] Care Team Providers Care Railroad [employer] Name Role Phone AMY HALEY Unavailable PROBLEMS Type Condition ICD9-CM Code PJL77-WU Code Onset Dates Condition Status SNOMED Code Problem Other chronic pain G89.29 Active 74923152 Problem Morbid (severe) obesity due to excess calories E66.01 Active 82455550529274 Problem Essential hypertension I10 Active 72367581 Problem Other ulcerative colitis without complication K51.80 Active 58485786 Problem Gastroesophageal reflux disease with esophagitis K21.0 Active 441686874 Problem Body mass index (BMI) of 45.0-49.9 in adult Z68.42 Active 351395464 Problem GERD with esophagitis K21.0 Active [id number] ALLERGIES No Information ENCOUNTERS Encounter Location Date Diagnosis [facility] [id number] [place] [address] 80834- 7264 Sep, [facility] [address] 16671- 0623 Sep, [facility] [id number] [place] [address] 69680- 7483 Aug, [facility] [address] [address]- 4473 Aug, [facility] [id number] [place] [address] 83591- 0243 Jul, Pain in right shoulder M25.511 [facility] [id number] [place] [address] 66692- 6934 05 Jul, 2017 [facility] [id number] [place] [address] 20482 -5150 Jul, Localized edema R60.0 and BMI 40.0-44.9, adult Z68.41 [place] [id number] [place] [address] 88870- 8767 02 Jul, 2017 [place] [address] 90462- 0847 Jun, Edema of left lower extremity R60.0 ; Essential hypertension I10 ; Family history of coronary artery disease Z82.49 ; Morbid ( severe) obesity due to excess calories E66.01 and Body mass index (BMI) of 45.0- 49.9 in adult Z68.42 [place] [id number] [place] [address] 04841- 5737 16 Jun, 2017 Other chronic pain G89.29 [place] [address] 30673- 0498 15 Jun, 2017 Pain in right shoulder M25.511 [place] [address] 34423- 4925 Jun, Other ulcerative colitis without complication K51.80 [facility] [place] [id number] [place] [address] 06861 -4620 May, [place] [address] 59453- 3462 May, GERD with esophagitis K21.0 ; Other ulcerative colitis without complication K51.80 and Other chest pain R07.89 [place] [id number] [place] [address] 17609- 5082 May, [facility] [id number] [place] [address] 58089 -6380 May, Left leg swelling M79.89 [place] [address] 80959- 8188 14 Apr, 2017 Pain in right shoulder M25.511 [place] [address] 40494- 2061 14 Apr, 2017 Pain in right shoulder M25.511 [facility] [address] [facility] [id number], [place] [address] 6270 Mar, [facility] [address] [facility]] [id number], [place] [address]- 2196 Mar, Pain in right shoulder M25.511 [facility] [address] [facility]] [id number], [place] [address]- 3386 Mar, [facility] [address] [facility]] [id number] [place] [address] 12953- 7756 Mar, [facility] [address] [facility] [id number], [place] [address]- 2286 Feb, Pain in right shoulder M25.511 [facility] [address] [facility]] [id number], [place] [address]- 7316 Jan, Pain in right shoulder M25.511 [facility] [id number] [place] [address] 69806- 3556 Jan, [facility] [address] [facility]] [id number], [place] [address]- 5269 Dec, Pain in right shoulder M25.511 [facility] [id number], [place] [address]- 4956 Nov, Pain in right shoulder M25.511 [facility] [id number], [place] [address]- 8216 Nov, Pain in right shoulder M25.511 [facility] [address] [facility] [id number], [place] [address] 5096 October, Pain in right shoulder M25.511 [facility] [id number], [place] [address]- 3976 Sep, Pain in right shoulder M25.511 [facility] [id number], [place] [address]- 1386 Aug, Pain in right shoulder M25.511 [facility] [address], [place] [address]- 6403 10 Jul, 2016 Pain in right shoulder M25.511 [facility] [id number] [place] [address] 25255 2546 10 Jul, 2016 Pain in left shoulder M25.512 [facility] [address], [place] [address]- 3986 10 Jul, 2016 Other chronic pain G89.29 [facility] [id number] [place] [address] 15938 2542 09 Jul, 2016 Pain in right shoulder M25.511 ; Other chronic pain G89.29 ; Pain in left shoulder M25.512 and Gastroesophageal reflux disease with esophagitis K21.0 [facility] [address], [place] [address]- 8012 Jun, [facility] [id number] [place] [address] 50000- 9806 May, [facility] [id number] [place] [address] 65133- 2806 May, [facility] [id number] [place] [address] 78195- 4315 Apr, [facility] [id number], [place] [address]- 2547 Mar, [facility] [id number], [place] [address] 2546 22 Feb, 2016 [facility] [id number], [place] [address] 2546 13 Feb, 2016 [facility] [id number] [place] [address] 41833 2545 12 Feb, 2016 [facility] [address], [place] [address] 2546 06 Feb, 2016 [facility] [id number] [place] [address] 47131 2546 Jan, [facility] [id number] [place] [address] 19802- 0279 Dec, Pain in left shoulder M25.512 [facility] [id number] [place] [address] 98100- 7886 Dec, Gastroesophageal reflux disease, esophagitis presence not specified K21.9 [facility] [id number] [place] [address] 73776- 9165 Nov, Pain in left shoulder M25.512 [facility] [id number] [place] [address] 35521- 5537 October, Pain in left shoulder M25.512 [facility] [id number] [place] [address] 42375- 6227 Sep, Shoulder pain, left M25.512 [facility] [id number] [place] [address] 83637- 0623 Aug, Pain in right shoulder M25.511 and Other chronic pain G89.29 [facility] [id number] [place] [address] 18379- 1992 Aug, Shoulder pain, right M25.511 and GERD (gastroesophageal reflux disease) K21.9 [facility] [id number] [place] [address] 40574- 4209 Nov, [facility] [id number] [place] [address] 74985- 3390 Sep, [facility] [id number] [place] [address] 07259- 7778 Sep, [facility] [id number] [place] [address] 55243- 2611 Jul, [facility] [id number] [place] [address] 47802- 7868 Jul, [facility] [id number] [place] [address] 36233- 4523 Jul, [facility] [place] [facility] [address] [id number] [place] [address]- 5207 Jul, [facility] [place] [facility] [address] [id number] [place] [address]- 1288 Jul, [facility] [place] [facility] [address] [id number] [place] [address]- 7366 Jul, [facility] [place] [facility] [address] [id number] [place] [address]- 6115 Jun, [facility] [place] [facility] [address] [id number] [place] [address]- 8956 Jun, [facility] [place] [facility] [address] [id number] [place] [address]- 4230 Apr, [facility] [place] [facility] [address] [id number] [place] [address]- 1259 Apr, [facility] [place] [facility] [address] [id number] [place] [address]- 0629 Apr, [facility] [place] [facility] [address] [id number] [place] [address]- 7480 Feb, [facility] [place] [facility] [address] [id number] [place] [address]- 3165 Feb, [facility] [place] [facility] [address] [id number] [place] [address]- 4976 Feb, [facility] [place] [facility] [address] [id number], [place] [address]- 9559 Feb, [facility] [place] [facility] [address] [id number] [place] [address]- 6246 Aug, [facility] [place] [facility] [address] [id number] [place] [address]- 7045 Aug, [facility] [place] [facility] [address] [id number], [place] [address]- 9946 Mar, [facility] [place] [facility] [address] [id number], [place] [address]- 5753 Mar, [facility] [address] [id number] [place] [address]- 2302 Mar, [facility] [place] [facility] [address] [id number] [place] [address]- 2677 Mar, [facility] [place] [facility] [address] [id number] [place] [address]- 9361 Feb, [facility] [place] [facility] [address] [id number] [place] [address]- 3082 Feb, [facility] [place] [facility] [address] [id number] [place] [address]- 4914 Feb, [facility] [place] [facility] [address] [id number] [place] [address]- 5514 Jan, [facility] [address] [id number] [place] [address]- 8128 Jan, [facility] [place] [facility] [address] [id number] [place] [address]- 5587 Dec, [facility] [address] [id number] [place] [address]- 1149 Dec, [facility] [place] [facility] [address] [id number] [place] [address]- 1588 Nov, [facility] [place] [facility] [address] [id number] [place] [address]- 7826 Nov, [facility] [place] [facility] [address] [id number] [place] [address]- 0689 Jan, [facility] [place] [facility] [address] [id number] [place] [address]- 7718 Jan, [facility] [place] [facility] [address] [id number] [place] [address]- 9713 Aug, [facility] [place] [facility] [address] [id number] [place] [address]- 0636 Jun, [facility] [place] [facility] [address] [facility] [id number] [place] [address]- 6086 16 Jun, 2011 [facility] [address] [facility]] [id number], [place] [address]- 3245 Apr, [facility] [address] [facility]] [id number] [place] [address]- 1686 17 Feb, 2010 IMMUNIZATIONS No Known Immunizations SOCIAL HISTORY Never Assessed REASON FOR VISIT Controlled Med Refill PLAN OF CARE VITAL SIGNS MEDICATIONS Medication Instructions Dosage Frequency Start Date End Date Duration Status Hydrocodone-Acetaminophen 5-325 MG Orally every 6 hrs- Must last 30 days 1 tablet as needed Jan, 28 days Active RESULTS No Results PROCEDURES No Known procedures INSTRUCTIONS MEDICATIONS ADMINISTERED No Known Medications MEDICAL (GENERAL) HISTORY Type Description Date Medical History colitis Medical History right shoulder pain Surgical History Appendectomy Surgical History Abscess drained and removed Hospitalization History surgery Hospitalization History dehydration
--- OUTSIDE RECORDS SUMMARY | 2017-10-25 04:39 | XMS REPORT | Continuity of Care Document ---
Author Author [facility] Address Unknown Phone Unavailable Allergies Active Description Code Type Severity Reaction Onset Reported/Identified Relationship to Patient Clinical Status Yes CHOLESTEROL PILL CHOLESTEROL PILL Mild "RED MAN SYNDRO 10/14/2008 Yes morphine Drug Allergy N/A N/A 03/07/2010 Yes morphine [id number] Drug Allergy Unknown SWEATS AND VOMI 07/06/2017 [...] APRN 786.50 chest pain or discomfort 10/15/2008 MARIPOAS BRENNER DO 786.50 chest pain or discomfort [...] LALITHA BATEMAN, TAKAAKI Ot 530.5 05/16/2014 LALITHA BATEMAN, TAKAAKI Ot 535.50 05/16/2014 LALITHA BATEMAN, TAKAAKI [...] BATEMAN, TAIWOKI Ot E915 09/30/2014 ARTEMIO MONTES AGENT SPA DESK Ot 692.6 DERMATITIS DUE TO PLANT 09/30/2014 ARTEMIO MONTES AGENT SPA DESK Ot 782.1 NONSPECIF SKIN ERUPT NEC 10/09/2014 [...] SOLER APRN Ot R60.0 LOCALIZED EDEMA 07/06/2017 MARIAJOSE LUDWIG DO Ot K21.9 GASTRO-ESOPHAGEAL REFLUX DISEASE WITHOUT 07/06/2017 MARIAJOSE LUDWIG DO Ot K62.5 HEMORRHAGE OF ANUS AND RECTUM 07/06/2017 LUDWIG DO MARIAJOSE D Ot Z01.818 ENCOUNTER FOR OTHER PREPROCEDURAL EXAMIN 07/06/2017 Ot 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 07/13/2017 LUDWIG DO, MARIAJOSE D Ot E66.9 OBESITY, UNSPECIFIED 07/13/2017 LUDWIG DO, MARIAJOSE D Ot K21.9 GASTRO-ESOPHAGEAL REFLUX DISEASE WITHOUT 07/13/2017 LUDWIG DO, MARIAJOSE D Ot K25.9 GASTRIC ULCER, UNSP ACUTE OR CHRONIC, 07/13/2017 LUDWIG DO, MARIAJOSE D Ot K29.70 GASTRITIS, UNSPECIFIED, WITHOUT BLEEDING 07/13/2017 LUDWIG DO MARIAJOSE D Ot K44.9 DIAPHRAGMATIC HERNIA WITHOUT OBSTRUCTION 07/13/2017 LUDWIG DO MARIAJOSE D Ot K92.1 MELENA 07/13/2017 LUDWIG DO MARIAJOSE D Ot Z68.39 BODY MASS INDEX (BMI) 39.0-39.9, ADULT 07/15/2017 LUDWIG DO MARIAJOSE D Ot E66.9 OBESITY, UNSPECIFIED 07/15/2017 LUDWIG DO, MARIAJOSE D Ot K21.9 GASTRO-ESOPHAGEAL REFLUX DISEASE WITHOUT 07/15/2017 LUDWIG DO, MARIAJOSE D Ot K25.9 GASTRIC ULCER, UNSP ACUTE OR CHRONIC, 07/15/2017 LUDWIG DO MARIAJOSE D Ot K29.70 GASTRITIS, UNSPECIFIED, WITHOUT BLEEDING 07/15/2017 LUDWIG DO, MARIAJOSE D Ot K44.9 DIAPHRAGMATIC HERNIA WITHOUT OBSTRUCTION 07/15/2017 LUDWIG DO MARIAJOSE D Ot K92.1 MELENA 07/15/2017 LUDWIG DO, MARIAJOSE D Ot Z68.39 BODY MASS INDEX (BMI) 39.0-39.9, ADULT 07/16/2017 LUDWIG DO, MARIAJOSE D Ot E66.9 OBESITY, UNSPECIFIED 07/16/2017 LUDWIG DO, MARIAJOSE D Ot K21.9 GASTRO-ESOPHAGEAL REFLUX DISEASE WITHOUT 07/16/2017 LUDWIG DO, MARIAJOSE D Ot K25.9 GASTRIC ULCER, UNSP ACUTE OR CHRONIC, 07/16/2017 LUDWIG DO, MARIAJOSE D Ot K29.70 GASTRITIS, UNSPECIFIED, WITHOUT BLEEDING 07/16/2017 LUDWIG DO, MARIAJOSE D Ot K44.9 DIAPHRAGMATIC HERNIA WITHOUT OBSTRUCTION 07/16/[facility] K92.1 MELENA 07/16/2017 [facility] Ot Z68.39 BODY MASS INDEX (BMI) 39.0-39.9, ADULT 07/16/2017 [facility] Ot E66.9 OBESITY, UNSPECIFIED 07/16/2017 [facility] MARIAJOSE D Ot K21.9 GASTRO-ESOPHAGEAL REFLUX DISEASE WITHOUT 07/16/2017 [facility], MARIAJOSE D Ot K25.9 GASTRIC ULCER, UNSP ACUTE OR CHRONIC, 07/16/2017 [facility] MARIAJOSE D Ot K29.70 GASTRITIS, UNSPECIFIED, WITHOUT BLEEDING 07/16/2017 [facility] MARIAJOSE D Ot K44.9 DIAPHRAGMATIC HERNIA WITHOUT OBSTRUCTION 07/16/2017 [facility] MARIAJOSE D Ot K92.1 MELENA 07/16/2017 [facility] MARIAJOSE D Ot Z68.39 BODY MASS INDEX (BMI) 39.0-39.9, ADULT 08/04/2017 XOCHILT PANCHAL MD Ot R60.0 LOCALIZED EDEMA 10/18/2017 [facility] K21.0 GASTRO-ESOPHAGEAL REFLUX DISEASE WITH ES 10/18/2017 [facility] Ot K76.0 FATTY (CHANGE OF) LIVER, NOT ELSEWHERE C 10/22/2017 AMY HALEY Ot R10.32 LEFT LOWER QUADRANT PAIN 10/22/2017 Ot 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 10/22/2017 JOHANNA DOTY MD Ot 530.11 REFLUX ESOPHAGITIS 10/22/2017 JOHANNA DOTY MD Ot 530.3 ESOPHAGEAL STRICTURE 10/22/2017 JOHANNA DOTY MD Ot 530.5 DYSKINESIA OF ESOPHAGUS 10/22/2017 JOHANNA DOTY MD Ot 535.50 UNSP GASTRITIS GASTRODUODENITIS W/O ME 10/22/2017 JOHANNA DOTY MD Ot 535.60 DUODENITIS, WITHOUT MENTION OF HEMORRHAG 10/22/2017 JOHANNA DOTY MD Ot 553.3 DIAPHRAGMATIC HERNIA 10/22/2017 JOHANNA DOTY MD Ot 935.1 FOREIGN BODY ESOPHAGUS 10/22/2017 JOHANNA DOTY MD Ot E000.8 OTHER EXTERNAL CAUSE STATUS 10/22/2017 LALITHA BATEMAN, JOHANNA Ot E915 FB ENTERING OTH ORIFICE 10/22/2017 ALEX SOLER APRN Ot M79.89 OTHER SPECIFIED SOFT TISSUE DISORDERS 10/22/2017 ALEX SOLER APRN Ot R60.0 LOCALIZED EDEMA 10/22/2017 ABDULKADIR BATEMAN, XOCHILT Thorpe Ot R60.0 LOCALIZED EDEMA 10/22/2017 LUDWIG DO, MARIAJOSE D Ot K21.0 GASTRO-ESOPHAGEAL REFLUX DISEASE WITH ES 10/22/2017 LUDWIG DO, MARIAJOSE D Ot K76.0 FATTY (CHANGE OF) LIVER, NOT ELSEWHERE C 10/22/2017 AMY HALEY Ot R10.32 LEFT LOWER QUADRANT PAIN 10/22/2017 AMY HALEY Ot R10.32 LEFT LOWER QUADRANT PAIN 10/22/2017 LUDWIG DO, MARIAJOSE D Ot K21.0 GASTRO-ESOPHAGEAL REFLUX DISEASE WITH ES 10/22/2017 LUDWIG DO, MARIAJOSE D Ot K76.0 FATTY (CHANGE OF) LIVER, NOT ELSEWHERE C 10/22/2017 ALEX SOLER APRN Ot M79.89 OTHER SPECIFIED SOFT TISSUE DISORDERS 10/22/2017 ALEX SOLER APRN Ot R60.0 LOCALIZED EDEMA 10/22/2017 XOCHILT PANCHAL MD Ot R60.0 LOCALIZED EDEMA 10/23/2017 ALEX SOLER APRN Ot M79.89 OTHER SPECIFIED SOFT TISSUE DISORDERS 10/23/2017 ALEX SOLER APRN Ot R60.0 LOCALIZED EDEMA Procedures Code Description Performed By Performed On [facility] Ruby OLVIN VASQUEZ 12/10/2012 86.04 OTHER SKIN SUBQ I D 02/13/2013 Results Test Result Range TSH - 06/18/17 08:34 TSH 2.35 mIU/L 0.40-4.50 BNP - 06/18/17 08:34 B TYPE NATRIURETIC PEPTIDE (BNP) 4 pg/mL <100 Encounters ACCT No. Visit Date/Time Discharge Status Pt. Type Provider Facility Loc./Unit Complaint [id number] 07/06/2014 14:22:00 07/06/2014 23:59:59 CLS Outpatient MARIPOSA BRENNER DO [id number] 05/02/2014 14:27:00 05/02/2014 23:59:59 CLS Outpatient AMY HALEY APRN [id number] 03/02/2014 09:15:00 03/02/2014 23:59:59 CLS Outpatient TERA ALCANTARN AMY Choudhary [id number] 09/15/2013 10:30:00 09/15/2013 23:59:59 CLS Outpatient TERA ALCANTARN AMY Choudhary [id number] 04/14/2013 14:56:00 04/14/2013 23:59:59 CLS Outpatient MARIPOSA BRENNER DO [id number] 04/05/2013 13:52:00 04/05/2013 23:59:59 CLS Outpatient SARI POPE APRN [id number] 02/27/2013 14:37:00 Document Registration [id number] 02/24/2013 11:36:00 Document Registration [id number] 02/21/2013 16:17:00 Document Registration [id number] 12/10/2012 09:18:00 Document Registration [id number] 12/02/2012 13:42:00 Document Registration [id number] 10/11/2017 14:20:00 10/11/2017 23:59:59 CLS Outpatient TERA AGENT SPA DESKAMY May [facility] [id number] 06/18/2017 08:00:00 Document Registration [id number] 10/15/2017 08:13:00 10/15/2017 23:59:59 CLS Outpatient AMY HALEY ENVIRONMENTAL CONFLICT MANAGER [facility] RAD R10.32 ABDOMINAL PAIN , LEFT LOWER QUADRANT [id number] 10/15/2017 07:33:00 10/15/2017 23:59:59 CLS Outpatient MARIAJOSE LUDWIG DO [facility] RAD REFLUX EXOPHAGITIS [id number] 08/03/2017 13:34:00 08/03/2017 23:59:59 CLS Outpatient XOCHILT PANCHAL MD [facility] CARD EDEMA OF LLE [id number] 07/13/2017 06:48:00 07/13/2017 10:00:00 DIS Outpatient MARIAJOSE LUDWIG DO [facility] ENDO RECTAL BLEEDING/REFLUX [id number] 07/06/2017 05:37:00 07/06/2017 11:26:00 DIS Outpatient MARIAJOSE LUDWIG DO [facility] PREOP COLONOSCOPY/EGD [id number] 05/24/2017 12:53:00 05/24/2017 23:59:59 CLS Outpatient SOLER, ALEX Vicente AGENT SPA DESK [facility] RAD LT LEG SWELLING [id number] 12/13/2015 10:44:00 12/13/2015 11:49:00 DIS Emergency ROSENDO HUSSEIN [facility] ER ABSCESS [id number] 11/08/2014 17:12:00 11/08/2014 18:00:00 DIS Emergency YADIRA BERNAL MD [facility] ER R ARM ABCESS [id number] 09/30/2014 17:52:00 09/30/2014 18:00:00 DIS Emergency ARTEMIO MONTES AGENT SPA DESK [facility] ER RASH/POSS POISON WILI [id number] 07/12/2014 22:25:00 07/12/2014 23:46:00 DIS Emergency ALPHONSO REYNOLDS DO [facility] ER CHEST PAIN [id number] 05/11/2014 17:23:00 05/11/2014 23:59:59 CLS Outpatient JOHANNA DOTY MD [facility] SDC FOREIGN BODY [id number] 04/29/2014 20:39:00 04/29/2014 23:08:00 DIS Emergency ALPHONSO REYNOLDS DO [facility] ER INSECT BITE/STING [id number] 03/04/2014 22:54:00 03/05/2014 00:37:00 DIS Emergency ANDIE MCCRAY MD [facility] ER BODY ACHE [id number] 02/10/2014 21:52:00 02/10/2014 22:13:00 DIS Emergency BIRGIT LOPEZ MD [facility] ER POSS SPIDER BITE R KNEE [id number] 03/17/2013 08:06:00 03/17/2013 10:25:00 DIS Emergency YADIRA BERNAL MD [facility] ER LEFT SIDE/ABD PAIN [id number] 02/12/2013 13:49:00 02/14/2013 18:35:00 DIS Inpatient MARIPOSA BRENNER DO [facility] 4TH CELLULITIS [id number] 11/01/2012 09:30:00 01/16/2013 00:01:00 DIS Outpatient PEDRO BATEMAN, OLVIN Romero [facility] WOUNDCARE PERISCROTAL ABSCESS [id number] 11/30/2012 23:07:00 12/01/2012 03:19:00 DIS Emergency GAIL GARCIAALPHONSO [facility] ER RT HAND RING FINGER ABSCESS [id number] 11/24/2012 00:23:00 11/24/2012 01:08:00 DIS Emergency MAHENDRA BATEMAN, ANDIE Choudhary [facility] ER ACID REFLUX [id number] 10/12/2012 23:30:00 10/13/2012 19:20:00 DIS Outpatient PEDRO BATEMAN, OLVIN Roemro [facility] SDC PERISCROTAL ABSCESS [id number] 10/22/2017 10:53:00 ACT Outpatient MARIAJOSE LUDWIG DO [facility] CARD REFLUX ESOPHAGITIS [id number] 01/17/2013 11:15:00 Document Registration [id number] 10/17/2011 13:43:00 Document Registration [id number] 06/21/2011 12:44:00 Document Registration [id number] 06/17/2011 10:02:00 Document Registration [id number] 02/05/2011 17:07:00 Document Registration [id number] 03/13/2010 09:48:00 Document Registration [id number] 03/11/2010 23:27:00 Document Registration [id number] 01/25/2010 21:30:00 Document Registration
[2017-10-25] MEDS ORDERED: ASPIRIN 81 MG CHEW (CHILDREN'S ASA) PO ONE (04:45)
[2017-10-25 04:47] LABS: BASOPHILS % (AUTO) 0 % (0-10); EOSINOPHILS % (AUTO) 1 % (0-10); HEMATOCRIT 27 % (40-54); HEMOGLOBIN 8.3 G/DL (13.3-17.7); LYMPHOCYTES # (AUTO) 1.3 X 10^3 (1.0-4.0); LYMPHOCYTES % (AUTO) 88 % (12-44); MEAN CORPUSCULAR HEMOGLOBIN 30 PG (25-34); MEAN CORPUSCULAR HGB CONC 31 G/DL (32-36); MEAN CORPUSCULAR VOLUME 97 FL (80-99); MONOCYTES % (AUTO) 3 % (0-12); NEUTROPHILS # (AUTO) 0.1 X 10^3 (1.8-7.8); NEUTROPHILS % (AUTO) 8 % (42-75); RED BLOOD COUNT 2.74 10^6/uL (4.35-5.85); RED CELL DISTRIBUTION WIDTH 20.9 % (10.0-14.5)
[2017-10-25 04:49] LABS: WHITE BLOOD COUNT 1.4 10^3/uL (4.3-11.0)
[2017-10-25] MEDS ORDERED: NITROGLYCERIN 0.4 MG SL TABS BTL 25'S SL ONE (04:49)
[2017-10-25 04:50] LABS: PLATELET COUNT 33 10^3/uL (130-400)
[2017-10-25] MEDS ORDERED: NITROGLYCERIN 0.4 MG SL TABS BTL 25'S SL PRN ×2 (05:00→08:00)
[2017-10-25 05:08] LABS: ALANINE AMINOTRANSFERASE 12 U/L (0-55); ALBUMIN 4.3 GM/DL (3.2-4.5); ALKALINE PHOSPHATASE 74 U/L (40-136); AMYLASE 79 U/L (25-125); BILIRUBIN,TOTAL 0.8 MG/DL (0.1-1.0); BUN/CREATININE RATIO 24; CALCIUM 8.7 MG/DL (8.5-10.1); CARBON DIOXIDE 26 MMOL/L (21-32); CHLORIDE 108 MMOL/L (98-107); CREATINE KINASE 58 U/L (30-200); CREATININE SERUM 0.83 MG/DL (0.60-1.30); GFR ESTIMATED > 60; GLUCOSE 102 MG/DL (70-105); LIPASE 44 U/L (8-78); MAGNESIUM 2.5 MG/DL (1.8-2.4); SODIUM 140 MMOL/L (135-145); TOTAL PROTEIN 8.1 GM/DL (6.4-8.2)
[2017-10-25 05:09] LABS: INR 1.2 (0.8-1.4); PROTHROMBIN TIME PATIENT 14.8 SEC (12.2-14.7)
[2017-10-25 05:15] LABS: CREATINE KINASE MB 0.6 NG/ML (<6.6)
[2017-10-25 05:18] LABS: ATYPICAL LYMPHOCYTES 15 %; LYMPHOCYTES % (MANUAL) 89 %; MONOCYTES % (MANUAL) 3 %; NEUTROPHILS % (MANUAL) 8 %
[2017-10-25 05:19] LABS: ANISOCYTOSIS MARKED; POLYCHROMASIA SLIGHT
[2017-10-25] MEDS ORDERED: fentaNYL INJECTION 100 MCG/2 ML AMP IVP STA (05:27)
--- NOTE | 2017-10-25 05:30 | ED Chest Pain ---
General Chief Complaint: Chest Pain Stated Complaint: CP Nursing Triage Note: PT TO ED 5 W/ C/O CHEST PAIN ONSET 18, WORSE ONSET 0330 THIS AM. DOES REPORT PAIN RADIATES DOWN LT ARM TO ELBOW. DENIES SOB, N/V, DIAPHORESIS. DENIES TAKING ANY MEDS FOR C/O Nursing Sepsis Screen: No Definite Risk Source: patient History of Present Illness Date Seen by Provider: October 25, 2017 Time Seen by Provider: 04:34 Initial Comments PT ARRIVES VIA POV FROM HOME STATES CHEST PAIN WOKE HIM UP AT 0330 THIS MORNING STATES PAIN IS MOSTLY ON LEFT UPPER AND MID CHEST AND RADIATES DOWN LEFT ARM' PAIN IN CHEST COMES AND GOES BUT PAIN IN LEFT ARM IS CONSTANT NOTHING WORSENS OR IMPROVES PAIN RATES PAIN -01/28 HAS BEEN HAVING CHEST PAIN OFF AND ON SINCE WEDNESDAY NO SHORTNESS OF BREATH NO SWEATS NO NAUSEA/VOMITING NO PALPITATIONS HAS ONGOING PROBLEM WITH SWELLING AND CRAMPS IN LEFT LEG SINCE MAY. HAD NEGATIVE ULTRASOUND IN MAY HAS BEEN DX WITH HTN IN THE PAST AND WAS ON MEDICATIONS, BUT THOSE WERE STOPPED A FEW HEARS AGO. PT ALSO BEING TREATED FOR GERD AND HAS HAD EGD--TAKES PROTONIX, CARAFATE AND DICYCLOMINE PT HAD HIDA SCAN ON WEDNESDAY--RESULTS UNKNOWN TO PT ( ON REVIEW OF RESULTS, WAS NORMAL SCAN) HAS FOLLOW UP APPOINTMENT WITH DR. LUDWIG THIS WEEK PCP: [facility]--LAST SEEN 1-2 WEEKS AGO FOR ROUTINE FOLLOW UP 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/08) Home Medications Dicyclomine HCl 20 Mg Tablet, 20 MG PO QID, (Reported) Hydrocodone/Acetaminophen 1 Each Tablet, 1 EACH PO BID, (Reported) Pantoprazole Sodium 40 Mg Tablet., 40 MG PO DAILY Prescribed by: MARIAJOSE LUDWIG on 07/13/17902 Sucralfate 1 Gm Tablet, 1 GM PO Q6H Prescribed by: MARIAJOSE LUDWIG on 07/13/17902 Patient Home Medication List Home Medication List Reviewed: Yes Review of Systems Constitutional: no symptoms reported EENTM: No Symptoms Reported Respiratory: No Symptoms Reported Cardiovascular: See HPI, Chest Pain, Edema; Denies Irregular Heart Rate, Denies Lightheadedness, Denies Palpitations, Denies Syncope Gastrointestinal: See HPI; Denies Abdominal Pain, Denies Nausea, Denies Vomiting Genitourinary: No Symptoms Reported Musculoskeletal: no symptoms reported Skin: no symptoms reported Psychiatric/Neurological: No Symptoms Reported Endocrine: No Symptoms Reported Hematologic/Lymphatic: No Symptoms Reported; Denies Anemia, Denies Blood Clots , Denies Easy Bleeding, Denies Easy Bruising, Denies Swollen Glands Past Wztomhp-Uovgur-Fztcnn Hx Patient Social History Alcohol Use: Denies Use Recreational Drug Use: No Smoking Status: Never a Smoker Recent Foreign Travel: No Contact w/Someone Who Travel: No Recent Infectious Disease Expo: No Recent Hopitalizations: No Physical Abuse: No Sexual Abuse: No Mistreated: No Fear: No Immunizations Up To Date Tetanus Booster (TDap): Less than 5yrs Seasonal Allergies Seasonal Allergies: No Past Medical History Surgeries: Yes (PERIRECTAL ABSCESS; SPHINCTEROTOMY; EGD/COLONOSCOPY) Appendectomy Respiratory: No Currently Using CPAP: No Currently Using BIPAP: No Cardiac: Yes (HAS BEEN TOLD HAS MURMUR-SEEN BY COLLEGE SERVICE OFFICER; ON HTN MEDS IN PAST, BUT STOPPED YEARS AGO) Heart Murmur, Hypertension Neurological: No Reproductive Disorders: No Sexually Transmitted Disease: No HIV/AIDS: No Gastrointestinal: Yes (RECTAL BLEEDING, HX POLYPS; PERIRECTAL ABSCESS) Gastroesophageal Reflux, Chronic Diarrhea, Polyps Musculoskeletal: Yes Arthritis, Fractures Endocrine: No (OBESITY) Loss of Vision: Denies Hearing Impairment: Denies Cancer: No Psychosocial: No Nursing Suicide Risk Score: 0 Integumentary: No Blood Disorders: No Adverse Reaction/Blood Tranf: No Family Medical History No Pertinent Family Hx Physical Exam Vital Signs Vital Signs - First Documented 10/25/17 10/25/17 04:31 04:55 Temp 97.8 Pulse 72 Resp 14 B/P (MAP) 140/86 (104) Pulse Ox 100 O2 Delivery Room Air O2 Flow Rate 2.00 Capillary Refill : Less Than 3 Seconds General Appearance: No Apparent Distress, WD/WN, Obese HEENT: PERRL/EOMI Neck: Full Range of Motion, Normal Inspection, Non Tender, Supple; No Carotid Bruit, No JVD Respiratory: Chest Non Tender, Normal Breath Sounds, No Accessory Muscle Use, No Respiratory Distress Cardiovascular: Regular Rate, Rhythm, No JVD, No Murmur, Normal Peripheral Pulses Gastrointestinal: Normal Bowel Sounds, No Pulsatile Mass, Non Tender, Soft, Other (UNABLE TO PALPATE ORGANS DUE TO OBESITY) Extremity: Normal Capillary Refill, Normal Inspection, Normal Range of Motion, Non Tender, No Calf Tenderness, No Pedal Edema Neurologic/Psychiatric: Alert, Oriented x3, No Motor/Sensory Deficits, Normal Mood/Affect, 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 Norm as Tested Skin: Normal Color, Warm/Dry; No Ecchymosis, No Petechia Progress/Results/Core Measures Results/Orders Lab Results Laboratory Tests Test 10/25/17 04:38 10/25/17 06:17 Range/Units White Blood Count 1.4 *L 4.3-11.0 10^3/uL Red Blood Count 2.74 L 4.35-5.85 10^6/uL Hemoglobin 8.3 L 13.3-17.7 G/DL Hematocrit 27 L 40-54 % Mean Corpuscular Volume 97 80-99 FL Mean Corpuscular Hemoglobin 30 25-34 PG Mean Corpuscular Hemoglobin Concent 31 L 32-36 G/DL Red Cell Distribution Width 20.9 H 10.0-14.5 % Platelet Count 33 *L 130-400 10^3/uL Mean Platelet Volume 7.4-10.4 FL Neutrophils (%) (Auto) 8 L 42-75 % Lymphocytes (%) (Auto) 88 H 12-44 % Monocytes (%) (Auto) 3 0-12 % Eosinophils (%) (Auto) 1 0-10 % Basophils (%) (Auto) 0 0-10 % Neutrophils # (Auto) 0.1 L 1.8-7.8 X 10^3 Lymphocytes # (Auto) 1.3 1.0-4.0 X 10^3 Monocytes # (Auto) 0.0 0.0-1.0 X 10^3 Eosinophils # (Auto) 0.0 0.0-0.3 10^3/uL Basophils # (Auto) 0.0 0.0-0.1 10^3/uL Neutrophils % (Manual) 8 % Lymphocytes % (Manual) 89 % Monocytes % (Manual) 3 % Atypical Lymphocytes 15 % Polychromasia SLIGHT Anisocytosis MARKED Prothrombin Time 14.8 H 12.2-14.7 SEC INR Comment 1.2 0.8-1.4 Activated Partial Thromboplast Time 30 24-35 SEC Sodium Level 140 135-145 MMOL/L Potassium Level 4.0 3.6-5.0 MMOL/L Chloride Level 108 H 98-107 MMOL/L Carbon Dioxide Level 26 21-32 MMOL/L Anion Gap 6 5-14 MMOL/L Blood Urea Nitrogen 20 H 7-18 MG/DL Creatinine 0.83 0.60-1.30 MG/DL Estimat Glomerular Filtration Rate > 60 BUN/Creatinine Ratio 24 Glucose Level 102 70-105 MG/DL Calcium Level 8.7 8.5-10.1 MG/DL Magnesium Level 2.5 H 1.8-2.4 MG/DL Total Bilirubin 0.8 0.1-1.0 MG/DL Aspartate Amino Transf (AST/SGOT) 18 5-34 U/L Alanine Aminotransferase (ALT/SGPT) 12 0-55 U/L Alkaline Phosphatase 74 40-136 U/L Total Creatine Kinase 58 30-200 U/L Creatine Kinase MB 0.6 <6.6 NG/ML Troponin I < 0.30 <0.30 NG/ML B-Type Natriuretic Peptide 14.4 <100.0 PG/ML Total Protein 8.1 6.4-8.2 GM/DL Albumin 4.3 3.2-4.5 GM/DL Amylase Level 79 25-125 U/L Lipase 44 8-78 U/L Urine Opiates Screen NEGATIVE NEGATIVE Urine Oxycodone Screen NEGATIVE NEGATIVE Urine Methadone Screen NEGATIVE NEGATIVE Urine Propoxyphene Screen NEGATIVE NEGATIVE Urine Barbiturates Screen NEGATIVE NEGATIVE Ur Tricyclic Antidepressants Screen NEGATIVE NEGATIVE Urine Phencyclidine Screen NEGATIVE NEGATIVE Urine Amphetamines Screen NEGATIVE NEGATIVE Urine Methamphetamines Screen NEGATIVE NEGATIVE Urine Benzodiazepines Screen NEGATIVE NEGATIVE Urine Cocaine Screen NEGATIVE NEGATIVE Urine Cannabinoids Screen NEGATIVE NEGATIVE My Orders Orders - ALPHONSO REYNOLDS DO Amylase (10/25/17 04:34) Cbc With Automated Diff (10/25/17 04:34) Comprehensive Metabolic Panel (10/25/17 04:34) Creatine Kinase (10/25/17 04:34) Creatine Kinase Mb (10/25/17 04:34) Lipase (10/25/17 04:34) Partial Thromboplastin Time (10/25/17 04:34) Protime With Inr (10/25/17 04:34) Troponin I (10/25/17 04:34) Chest 1 View, Ap/Pa Only (10/25/17 04:34) O2 (10/25/17 04:34) Ekg Tracing (10/25/17 04:34) Aspirin Chewable Tablet (Baby Aspirin Ch (10/25/17 04:45) BNP (10/25/17 04:34) Monitor-Rhythm Ecg Trace Only (10/25/17 04:34) Magnesium (10/25/17 04:34) Drug Screen Stat (Urine) (10/25/17 04:36) Nitroglycerin 0.4 Mg Btl 25's (Nitrostat (10/25/17 05:00) Nitroglycerin 0.4 Mg Btl 25's (Nitrostat (10/25/17 04:49) Manual Differential (10/25/17 04:38) Ct Ellie Chest/Noang Abd-Pelv W (10/25/17 05:11) Fentanyl Injection (Sublimaze Injection (10/25/17 05:27) Iohexol Injection (Omnipaque 350 Mg/Ml 1 (10/25/17 06:00) Ns (Ivpb) (Sodium Chloride 0.9%) (10/25/17 06:00) Medications Given in ED Current Medications Medications Dose Ordered Sig/Pablo Route Start Time Stop Time Status Last Admin Dose Admin Aspirin 324 mg ONCE ONCE PO 10/25/17 04:45 10/25/17 04:46 DC 10/25/17 04:45 324 MG Iohexol 145 ml ONCE ONCE IV 10/25/17 06:00 10/25/17 06:19 DC 10/25/17 05:49 145 ML Nitroglycerin 1 TAB Q 5 MIN X 3 NEEDED PRN SL 10/25/17 05:00 10/25/17 04:53 0.4 MG Sodium Chloride 80 ml ONCE ONCE IV 10/25/17 06:00 10/25/17 06:19 DC 10/25/17 05:49 80 ML Vital Signs/I&O 10/25/17 10/25/17 04:31 04:55 Temp 97.8 Pulse 72 Resp 14 B/P (MAP) 140/86 (104) Pulse Ox 100 99 O2 Delivery Room Air Nasal Cannula O2 Flow Rate 2.00 Blood Pressure Mean: 104 Progress Progress Note : Progress Note NO RELIEF WITH NTG X 1 GIVEN FENTANYL 50 MCG X 1 DOSE WITH COMPLETE RESOLUTION OF PAIN Initial ECG Impression Date: October 25, 2017 Initial ECG Impression Time: 04:35 Initial ECG Rate: 78 Initial ECG Rhythm: Normal Sinus Initial ECG Impression: Normal Initial ECG Comparisson: No Previous ECG Available Diagnostic Imaging Comments CXR--NO ACUTE PROCESS, PENDING RADIOLOGIST REVIEW CT CHEST ANGIOGRAM/ ABDOMEN-PELVIS--NO PE, SPLENOMEGALY WITH SPLEEN MEASURING 25 CM, OTHERWISE NO ACUTE PROCESS, PER [facility] VIA FAX @ [phone] Reviewed: Reviewed by Sd Departure Communication (Admissions) [id number]--SPOKE WITH DR. RUSH, SUSTAIN ENGINEER FOR [facility]. ACCEPTS PT FOR ADMIT Impression Primary Impression: Chest pain Additional Impressions: Pancytopenia Splenomegaly Disposition: ADMITTED INPATIENT Condition: Improved Admissions Decision to Admit Reason: Admit from ER (General) Decision to Admit/Date: October 25, 2017 Time/Decision to Admit Time: 06:35 Departure-Patient Inst. Referrals: [facility] (PCP) Primary Care Physician AMY HALEY (Family) Primary Care Physician ALPHONSO REYNOLDS DO October 25, 2017 05:30
[2017-10-25] MEDS ORDERED: NS 250 ML (IVPB) BAG IV ONE (06:00)
[2017-10-25] MEDS ORDERED: IOHEXOL 350 MG/ML 150 ML (OMNIPAQUE 350) VIAL IV ONE (06:00)
[2017-10-25 06:37] LABS: AMPHETAMINE SCREEN, URINE NEGATIVE (NEGATIVE); BARBITURATE SCREEN URINE NEGATIVE (NEGATIVE); BENZODIAZEPINES SCREEN URINE NEGATIVE (NEGATIVE); CANNABINOID SCREEN, URINE NEGATIVE (NEGATIVE); COCAINE SCREEN URINE NEGATIVE (NEGATIVE); METHADONE STAT NEGATIVE (NEGATIVE); METHAMPHETAMINE SCREEN URINE S NEGATIVE (NEGATIVE); OPIATE SCREEN URINE NEGATIVE (NEGATIVE); OXYCODONE STAT NEGATIVE (NEGATIVE); PROPOXYPHENE STAT NEGATIVE (NEGATIVE); TRICYCLIC ANTIDEPRESSANTS SCRE NEGATIVE (NEGATIVE)
[2017-10-25] MEDS ORDERED: CATHETER FLUSH 10 ML SYR IV PRN (07:30)
[2017-10-25] MEDS ORDERED: PATIENT MAY USE OWN MEDS, ALL PO SCH (07:45)
--- NOTE | 2017-10-25 07:50 | Diagnostic Imaging Report ---
INDICATION: Chest pain. EXAMINATION: Portable upright view of the chest is obtained with comparison made to study of 07/12/2014. FINDINGS: Heart size and pulmonary vascularity are within normal limits, and the lungs are clear, bilaterally. IMPRESSION: Unremarkable chest. Dictated by: Dictated on workstation # [id number]
[2017-10-25 08:00] VITALS: BP 110/67
[2017-10-25] MEDS ORDERED: fentaNYL INJECTION 100 MCG/2 ML AMP IV PRN (08:00)
[2017-10-25] MEDS: NS IV 1000 ML 1,000 ML IV SCH (08:04)
--- NOTE | 2017-10-25 08:25 | Diagnostic Imaging Report ---
INDICATION: Chest pain. AP portable view of the chest is obtained with comparison made study of 10/25/2017. FINDINGS: Heart size and pulmonary vascularity are within normal limits, and the lungs are clear, bilaterally. IMPRESSION: Unremarkable chest. Dictated by: Dictated on workstation # [id number]
[2017-10-25 08:33] LABS: INR 1.2 (0.8-1.4); PROTHROMBIN TIME PATIENT 15.1 SEC (12.2-14.7)
--- NOTE | 2017-10-25 08:40 | Diagnostic Imaging Report ---
INDICATION: Acute onset chest pain with nausea, emesis and diaphoresis CTA chest: Multiple contiguous axial CT images of the thorax were obtained after bolus intravenous administration of iodinated contrast. 3-D reformatted images are produced. There is good opacification of pulmonary arteries without intraluminal filling defect. Mildly prominent mediastinal lymph nodes are present reaching 2 cm long axis in the aorticopulmonary window region. No definite hilar adenopathy is identified. The lungs appear clear. There is no significant pleural or pericardial fluid. IMPRESSION: No CTA evidence of pulmonary embolism or acute vascular abnormality in the thorax. There are mildly prominent mediastinal lymph nodes without other acute abnormality detected. CT abdomen and pelvis: Multiple contiguous axial CT images of the abdomen and pelvis are obtained after intravenous administration of iodinated contrast. No focal hepatic lesion is identified. There is marked splenomegaly with spleen measuring greater than 25 cm in length. There is no evidence of gallbladder inflammation or biliary ductal dilatation. There are multiple enlarged celiac axis and central retroperitoneal lymph nodes which measure up to approximately 6.5 x 3.0 cm. No free fluid is identified. There is no evidence of localized inflammation. No pancreatic, adrenal gland or renal lesion is identified. There is no free fluid in the abdomen or pelvis. Partially opacified urinary bladder is unremarkable. IMPRESSION: Extensive splenomegaly and upper abdominal lymphadenopathy. Considerations include lymphoma or metastatic disease. Clinical correlation is recommended. Dictated by: Dictated on workstation # [id number]
[2017-10-25 08:42] LABS: MYOGLOBIN SERUM 31.1 NG/ML (10.0-92.0)
[2017-10-25 09:59] LABS: BILIRUBIN,URINE NEGATIVE (NEGATIVE); CLARITY,URINE CLEAR; COLOR,URINE YELLOW; GLUCOSE, URINE (UA) NEGATIVE (NEGATIVE); KETONES,URINE NEGATIVE (NEGATIVE); LEUKOCYTE ESTERASE ,URINE NEGATIVE (NEGATIVE); NITRITE,URINE NEGATIVE (NEGATIVE); PH,URINE 8 (5-9); PROTEIN,URINE NEGATIVE (NEGATIVE); UROBILINOGEN,URINE 1 MG/DL (NORMAL)
[2017-10-25] MEDS ORDERED: PANT40TA2 PO (10:04)
[2017-10-25] MEDS ORDERED: MULT1CAP14 PO (10:04)
[2017-10-25] MEDS ORDERED: SUCR1TAB36 PO (10:04)
[2017-10-25] MEDS ORDERED: ACET-2267 PO (10:04)
[2017-10-25 10:12] LABS: BACTERIA,URINE NEGATIVE /HPF; SQUAMOUS EPITHELIAL CELL,UR RARE /HPF
--- NOTE | 2017-10-25 11:12 | History & Physicial (CHS) ---
HPI History of Present Illness: 42 yo M that presented to ER with chest pain that woke him up around 3 AM. States that he started having some pain in his chest down his left arm on Wednesday but it went away on its own. Denies any sweating or shortness of breath with chest pain. Has + family history of heart disease and CA. States that he has had an echo before that showed some enlargement. States that he was treated for HTN several years ago but blood pressure normalized. Patient has been going thru workup for reflux with ulcers with Dr Neal. He has been on Protonix for 4 years and recently started Carafate after last EGD and Colonoscopy. Recently this year was told that he was anemic but denies any prior anemia. In ED patient was found to have significant splenomegaly with some lymphadenopathy. Denies weight loss or chills. States that he noticed a bite on his left leg several months ago that swelled up. He went to urgent care and had US to rule out DVT. Source: patient, family, RN/MD, old records Exam Limitations: no limitations Date seen by provider: October 25, 2017 Time Seen by Provider: 10:15 Attending Physician Ramiro Amin MD PCP Center/[facility] Consult Date of Admission October 25, 2017 at 06:35 Home Medications Home Medications Reviewed patient Home Medication Reconciliation performed by pharmacy medication reconciliations engineering technician parking and/or nursing. Patients Allergies have been reviewed. Allergies Coded Allergies: morphine (Unverified Adverse Reaction, Unknown, SWEATS AND VOMITING, ) Uncoded Allergies: CHOLESTEROL PILL (Allergy, Mild, "RED MAN SYNDROME", 10/14/08) BIG-Uoegec-Thwaem Hx Patient Social History Living Status: Living at home with Alcohol Use: Denies Use Recreational Drug Use: No Smoking Status: Never a Smoker Recent Foreign Travel: No Contact w/other who traveled: No Recent Hopitalizations: No Recent Infectious Disease Expo: No Immunizations Up To Date Tetanus Booster (TDap): Less than 5yrs Past Medical History HTN: controlled off medications Obesity Family Medical History Significant Family History: Heart Disease (Fatal CA in father at age 46), Diabetes (Mother) Family History: Cardiovascular disease 19 FATHER 19 MOTHER (bipass surgery) Diabetes mellitus 19 MOTHER Hypertension 19 FATHER Myocardial infarction 19 FATHER ( at age 46 from CA) Review of Systems (CHC) Constitutional: no symptoms reported; No chills, No fever, No malaise, No weight loss EENTM: no symptoms reported Respiratory: no symptoms reported; No cough, No dyspnea on exertion, No orthopnea, No short of breath Cardiovascular: chest pain (resolved this AM); No edema, No palpitations Gastrointestinal: no symptoms reported; No abdominal pain, No constipation, No diarrhea, No loss of appetite, No melena; other (States that he feels a fullness in left abdomen) Genitourinary: no symptoms reported; No dysuria, No frequency, No hematuria Musculoskeletal: no symptoms reported; No back pain, No joint pain, No muscle pain Skin: rash (left lower leg with mild erythema) Psychiatric/Neurological: No Symptoms Reported Reviewed Test Results Reviewed Test Results Lab Laboratory Tests Test 10/25/17 04:38 10/25/17 06:17 10/25/17 08:10 10/25/17 09:15 Range/Units White Blood Count 1.4 *L 4.3-11.0 10^3/uL Red Blood Count 2.74 L 4.35-5.85 10^6/uL Hemoglobin 8.3 L 13.3-17.7 G/DL Hematocrit 27 L 40-54 % Mean Corpuscular Volume 97 80-99 FL Mean Corpuscular Hemoglobin 30 25-34 PG Mean Corpuscular Hemoglobin Concent 31 L 32-36 G/DL Red Cell Distribution Width 20.9 H 10.0-14.5 % Platelet Count 33 *L 130-400 10^3/uL Mean Platelet Volume 7.4-10.4 FL Neutrophils (%) (Auto) 8 L 42-75 % Lymphocytes (%) (Auto) 88 H 12-44 % Monocytes (%) (Auto) 3 0-12 % Eosinophils (%) (Auto) 1 0-10 % Basophils (%) (Auto) 0 0-10 % Neutrophils # (Auto) 0.1 L 1.8-7.8 X 10^3 Lymphocytes # (Auto) 1.3 1.0-4.0 X 10^3 Monocytes # (Auto) 0.0 0.0-1.0 X 10^3 Eosinophils # (Auto) 0.0 0.0-0.3 10^3/uL Basophils # (Auto) 0.0 0.0-0.1 10^3/uL Neutrophils % (Manual) 8 % Lymphocytes % (Manual) 89 % Monocytes % (Manual) 3 % Atypical Lymphocytes 15 % Polychromasia SLIGHT Anisocytosis MARKED Prothrombin Time 14.8 H 15.1 H 12.2-14.7 SEC INR Comment 1.2 1.2 0.8-1.4 Activated Partial Thromboplast Time 30 30 24-35 SEC Sodium Level 140 135-145 MMOL/L Potassium Level 4.0 3.6-5.0 MMOL/L Chloride Level 108 H 98-107 MMOL/L Carbon Dioxide Level 26 21-32 MMOL/L Anion Gap 6 5-14 MMOL/L Blood Urea Nitrogen 20 H 7-18 MG/DL Creatinine 0.83 0.60-1.30 MG/DL Estimat Glomerular Filtration Rate > 60 BUN/Creatinine Ratio 24 Glucose Level 102 70-105 MG/DL Calcium Level 8.7 8.5-10.1 MG/DL Magnesium Level 2.5 H 1.8-2.4 MG/DL Total Bilirubin 0.8 0.1-1.0 MG/DL Aspartate Amino Transf (AST/SGOT) 18 5-34 U/L Alanine Aminotransferase (ALT/SGPT) 12 0-55 U/L Alkaline Phosphatase 74 40-136 U/L Total Creatine Kinase 58 30-200 U/L Creatine Kinase MB 0.6 <6.6 NG/ML Troponin I < 0.30 < 0.30 <0.30 NG/ML B-Type Natriuretic Peptide 14.4 <100.0 PG/ML Total Protein 8.1 6.4-8.2 GM/DL Albumin 4.3 3.2-4.5 GM/DL Amylase Level 79 25-125 U/L Lipase 44 8-78 U/L Urine Opiates Screen NEGATIVE NEGATIVE Urine Oxycodone Screen NEGATIVE NEGATIVE Urine Methadone Screen NEGATIVE NEGATIVE Urine Propoxyphene Screen NEGATIVE NEGATIVE Urine Barbiturates Screen NEGATIVE NEGATIVE Ur Tricyclic Antidepressants Screen NEGATIVE NEGATIVE Urine Phencyclidine Screen NEGATIVE NEGATIVE Urine Amphetamines Screen NEGATIVE NEGATIVE Urine Methamphetamines Screen NEGATIVE NEGATIVE Urine Benzodiazepines Screen NEGATIVE NEGATIVE Urine Cocaine Screen NEGATIVE NEGATIVE Urine Cannabinoids Screen NEGATIVE NEGATIVE Myoglobin 31.1 10.0-92.0 NG/ML Urine Color YELLOW Urine Clarity CLEAR Urine pH 8 5-9 Urine Specific Goessel 1.010 L 1.016-1.022 Urine Protein NEGATIVE NEGATIVE Urine Glucose (UA) NEGATIVE NEGATIVE Urine Ketones NEGATIVE NEGATIVE Urine Nitrite NEGATIVE NEGATIVE Urine Bilirubin NEGATIVE NEGATIVE Urine Urobilinogen 1 NORMAL MG/DL Urine Leukocyte Esterase NEGATIVE NEGATIVE Urine RBC (Auto) NEGATIVE NEGATIVE Urine RBC NONE /HPF Urine WBC NONE /HPF Urine Squamous Epithelial Cells RARE /HPF Urine Crystals NONE /LPF Urine Bacteria NEGATIVE /HPF Urine Casts NONE /LPF Urine Mucus NEGATIVE /LPF Urine Culture Indicated NO Radiology Date of Exam:10/25/17 CT DHRUV CHEST/NOANG ABD-PELV W INDICATION: Acute onset chest pain with nausea, emesis and diaphoresis CTA chest: Multiple contiguous axial CT images of the thorax were obtained after bolus intravenous administration of iodinated contrast. 3-D reformatted images are produced. There is good opacification of pulmonary arteries without intraluminal filling defect. Mildly prominent mediastinal lymph nodes are present reaching 2 cm long axis in the aorticopulmonary window region. No definite hilar adenopathy is identified. The lungs appear clear. There is no significant pleural or pericardial fluid. IMPRESSION: No CTA evidence of pulmonary embolism or acute vascular abnormality in the thorax. There are mildly prominent mediastinal lymph nodes without other acute abnormality detected. CT abdomen and pelvis: Multiple contiguous axial CT images of the abdomen and pelvis are obtained after intravenous administration of iodinated contrast. No focal hepatic lesion is identified. There is marked splenomegaly with spleen measuring greater than 25 cm in length. There is no evidence of gallbladder inflammation or biliary ductal dilatation. There are multiple enlarged celiac axis and central retroperitoneal lymph nodes which measure up to approximately 6.5 x 3.0 cm. No free fluid is identified. There is no evidence of localized inflammation. No pancreatic, adrenal gland or renal lesion is identified. There is no free fluid in the abdomen or pelvis. Partially opacified urinary bladder is unremarkable. IMPRESSION: Extensive splenomegaly and upper abdominal lymphadenopathy. Considerations include lymphoma or metastatic disease. Clinical correlation is recommended. Physical Exam-([facility]C) Physical Exam Vital Signs VS - Last 72 Hours, by Label 10/25/17 10/25/17 10/25/17 10/25/17 04:31 04:55 06:50 07:30 Temp 97.8 Pulse 72 76 Resp 14 18 B/P (MAP) 140/86 (104) 128/80 Pulse Ox 100 99 100 O2 Delivery Room Air Nasal Cannula Room Air Room Air O2 Flow Rate 2.00 10/25/17 10/25/17 10/25/17 10/25/17 08:00 09:09 12:30 13:05 Temp 98.7 98.7 Pulse 80 82 82 119 Resp 18 18 B/P (MAP) 110/67 (81) 116/68 (84) Pulse Ox 94 93 O2 Delivery Room Air Room Air 10/25/17 10/25/17 10/25/17 10/26/17 15:30 19:00 19:20 00:00 Temp 98.2 98.6 98.0 Pulse 79 86 79 75 Resp 18 20 16 B/P (MAP) 123/76 (92) 138/79 (98) 125/73 (90) Pulse Ox 97 99 96 O2 Delivery Room Air Room Air Room Air 10/26/17 10/26/17 10/26/17 10/26/17 01:00 04:30 07:00 08:30 Temp 98.4 97.7 Pulse 68 77 67 80 Resp 19 20 B/P (MAP) 114/64 (81) 110/64 (79) Pulse Ox 97 97 O2 Delivery Room Air Room Air Capillary Refill : Less Than 3 Seconds General Appearance: WD/WN, no apparent distress HEENT: PERRL/EOMI Neck: non-tender, full range of motion, supple Respiratory: chest non-tender, lungs clear, normal breath sounds, no respiratory distress, no accessory muscle use Cardiovascular: normal peripheral pulses, regular rate, rhythm, no murmur, other (trace edema in LLE) Gastrointestinal: normal bowel sounds, non tender, soft; No mass; spleenomegaly Back: normal inspection, no CVA tenderness, no vertebral tenderness Extremities: normal range of motion, non-tender, no calf tenderness, normal capillary refill, pedal edema (trace L>R) Neurologic/Psychiatric: 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 II-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 nml as tested, no motor/sensory deficits, alert, normal mood/affect, oriented x 3 Skin: normal color, warm/dry, other (Erythematous rash on left anterior tibia, non tender, no drainage or signs of infection) Lymphatic: no adenopathy Assessment/Plan Assessment/Plan Admission Status: Observation (1) Atypical chest pain Status: Resolved Assessment & Plan: - No longer having chest pain, Trop x 2 neg, 1 more pending - Continue daily ASA 81 mg (2) Pancytopenia Status: Acute Assessment & Plan: - No prior history - Holding Protonix given low plts - Referral to Hem/Onc to see patient - Tick panel pending, Start Doxy 100mg BID x 10 days (3) Splenomegaly Status: Acute Assessment & Plan: - See Above, denies pain (4) Lymphadenopathy Status: Acute Assessment & Plan: - Hem/Onc to see patient, consider bx (5) Reflux gastritis Status: Chronic Assessment & Plan: - Holding protonix for thrombocytopenia (6) Obesity (BMI 30-39.9) Status: Chronic (7) DVT prophylaxis Assessment & Plan: - SCDs given thrombocytopenia Clinical Quality Measures AMI/AHF: ASA po Prior to arrival: No Copy Copies To 1: Jt LAZARO HOLLY R MD October 25, 2017 11:12
[2017-10-25] MEDS ORDERED: HYDROcodone/APAP 5 MG/325 MG (LORTAB) TAB PO PRN (11:15)
[2017-10-25 12:30] VITALS: BP 116/68
[2017-10-25 14:50] LABS: ABSOLUTE RETIC # 38 10e9/L (24-90); BASOPHILS % (AUTO) 0 % (0-10); EOSINOPHILS % (AUTO) 1 % (0-10); HEMATOCRIT 26 % (40-54); HEMOGLOBIN 8.1 G/DL (13.3-17.7); LYMPHOCYTES # (AUTO) 1.1 X 10^3 (1.0-4.0); LYMPHOCYTES % (AUTO) 84 % (12-44); MEAN CORPUSCULAR HEMOGLOBIN 30 PG (25-34); MEAN CORPUSCULAR HGB CONC 31 G/DL (32-36); MEAN CORPUSCULAR VOLUME 98 FL (80-99); MONOCYTES # (AUTO) 0.1 X 10^3 (0.0-1.0); MONOCYTES % (AUTO) 5 % (0-12); NEUTROPHILS # (AUTO) 0.1 X 10^3 (1.8-7.8); NEUTROPHILS % (AUTO) 10 % (42-75); RED BLOOD COUNT 2.67 10^6/uL (4.35-5.85); RED CELL DISTRIBUTION WIDTH 21.1 % (10.0-14.5); RETICULOCYTE % 1.43 % (0.50-2.40)
[2017-10-25 14:52] LABS: PLATELET COUNT 31 10^3/uL (130-400); WHITE BLOOD COUNT 1.3 10^3/uL (4.3-11.0)
[2017-10-25 15:20] LABS: BAND NEUTROPHILS 0 %; BASOPHILS % (MANUAL) 0 %; EOSINOPHILS % (MANUAL) 0 %; LYMPHOCYTES % (MANUAL) 90 %; MONOCYTES % (MANUAL) 0 %; NEUTROPHILS % (MANUAL) 10 %; NUCLEATED RED BLOOD CELLS 2
[2017-10-25 15:21] LABS: ANISOCYTOSIS SLIGHT; ELLIPT/OVALOCYTES SLIGHT; MICROCYTOSIS SLIGHT; POIKILOCYTOSIS MODERATE; POLYCHROMASIA SLIGHT
[2017-10-25 15:30] VITALS: BP 123/76
[2017-10-25] MEDS: DOXYCYCLINE 100 MG (VIBRAMYCIN) TABLET PO SCH (17:19)
[2017-10-25 19:20] VITALS: BP 138/79
[2017-10-26] VITALS: BP 125/73
[2017-10-26] MEDS: NS IV 1000 ML 1,000 ML IV SCH (00:06)
--- NOTE | 2017-10-26 00:17 | CONSULTATION REPORT ---
DATE OF SERVICE: 10/25/2017 The patient is admitted to room 426. REFERRING PHYSICIAN: Pepper Pedroza MD. IMPRESSION: 1. A 42-year-old male admitted to the hospital with chest pain. 2. Workup including CT angiogram of chest and CT scan of the abdomen and pelvis showing significant splenomegaly and mild lymphadenopathy of undetermined etiology. 3. Pancytopenia. 4. History of tick bite a few months ago while on a hunting trip. 5. Obesity. RECOMMENDATIONS: 1. Agree with obtaining a tick-borne illnesses panel. 2. Empirically treat the patient with a course of doxycycline 100 mg twice daily x 10 days. 3. If the pancytopenia does not improve, the patient will need a bone marrow aspiration and biopsy for further evaluation. 4. With the lymphadenopathy as well as the splenomegaly and pancytopenia, lymphoproliferative disorder needs to be entertained. PLAN: We will review the peripheral smear and if any suspicious cells are noted, will schedule for the bone marrow aspiration biopsy or a CT-guided lymph node biopsy for a tissue diagnosis. Monitor his blood counts serially. HISTORY OF PRESENT ILLNESS: The patient is a 42-year-old male, who was brought to the emergency room with complaints of left-sided chest pain. He underwent an evaluation including CT angiogram of the chest, which showed mild lymphadenopathy in the chest as well as retroperitoneum as well as significant splenomegaly. CT scan of the abdomen and pelvis confirmed the massive splenomegaly. He was also noted to have pancytopenia and hematology consultation was obtained. The patient mentioned that he went for hunting in late May or early June to [facility] near [place]. He had a tick bite on his left lower extremity, which did become infected. He contacted his primary physician and a course of oral antibiotics with Bactrim-DS was given. 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 Because of the pancytopenia and splenomegaly, a hematology consultation was requested. PAST MEDICAL HISTORY: Hypertension, but is not on any medications. He has history of osteoarthritis and has obesity. PRIOR SURGERIES: Include a perirectal abscess drainage. Appendectomy in the past. EGD and colonoscopy with gastroesophageal reflux disease as well as hiatal hernia. He had a colon polyp removed in the past. SOCIAL HISTORY: The patient lives with his girlfriend. He has two adult daughters aged 23 and 22 years, who live close by. He also has two children, aged 9 and 8 years, who live at home with him. Denied any tobacco or recreational drug use. No history of alcohol use. 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 FAMILY HISTORY: Significant for both parents with coronary artery disease. His father from an ID while in his mid to late 40s. Mother required a bypass surgery while in her upper 50s. No hematologic or oncologic problems in the family that the patient knows of. PHYSICAL EXAMINATION: GENERAL: A middle-aged male, obese, awake and oriented and does not appear in acute distress. VITAL SIGNS: Temperature was 98.2, pulse rate of 79, respirations 18, blood pressure 123/76 with oxygen saturation of 97% on room air. HEENT: Normocephalic, extraocular muscles are intact, conjunctivae slightly pale, oral mucosa are moist without lesions. NECK: Supple, with no JVD. No definite lymphadenopathy palpable in the cervical, supraclavicular, axillary or inguinal areas. CHEST: Symmetrical. LUNGS: Fairly clear to auscultation without wheezes or rales. CARDIOVASCULAR: Regular rate and rhythm without murmurs or gallops. ABDOMEN: Obese, soft and nontender with no definite hepatomegaly palpable. Spleen was palpable to mid abdomen. No other masses palpable. EXTREMITIES: Showed no edema and no skin lesions. NEUROLOGIC: Showed no focal motor deficits. LABORATORY DATA: Reviewed his lab work with a CBC done this afternoon showing total white count of 1.3 with hemoglobin 8.1, MCV 98, platelet count 31,000 with neutrophil count of 0.1 and lymphocyte count 1.1. CBC done last night at the emergency room showed total white count of 1.4, hemoglobin 8.3, platelet count 33,000 with neutrophil count 0.1 and lymphocyte count 1.3. Absolute reticulocyte count was 38,000 today, which is below normal for his level of anemia. Chemistry panel done at the emergency room showed relatively normal electrolytes. BUN was 20 and creatinine 0.83 with GFR more than 60 mL per minute. Liver function studies were within normal limits. Troponin was negative x 3 and myoglobin was within normal limits at 31.1. Amylase and lipase was within normal limits. CT angiogram of chest as well as CT scan of abdomen and pelvis showed extensive splenomegaly with the spleen measuring more than 25 cm in length. Upper abdominal lymphadenopathy in the celiac axis and central retroperitoneal region measuring 6.5 x 3.0 cm. Mildly prominent mediastinal lymph nodes without other acute abnormalities. Thank you for allowing me to participate in this patient's care. I will follow the patient with you and make appropriate recommendations. Job ID: [id number] DocumentID: [id number] Dictated Date: 10/25/2017 18:45:45 Slot Machine Repairer Date: 10/26/2017 00:17:09 Dictated By: SANTOSH BEATTY MD [facility]
[2017-10-26 04:30] VITALS: BP 114/64
[2017-10-26 05:09] LABS: HEMATOCRIT 24 % (40-54); HEMOGLOBIN 7.4 G/DL (13.3-17.7); MEAN CORPUSCULAR HEMOGLOBIN 30 PG (25-34); MEAN CORPUSCULAR HGB CONC 31 G/DL (32-36); MEAN CORPUSCULAR VOLUME 97 FL (80-99); RED BLOOD COUNT 2.49 10^6/uL (4.35-5.85); RED CELL DISTRIBUTION WIDTH 21.1 % (10.0-14.5)
[2017-10-26 05:15] LABS: WHITE BLOOD COUNT 1.4 10^3/uL (4.3-11.0)
[2017-10-26 05:16] LABS: PLATELET COUNT 34 10^3/uL (130-400)
[2017-10-26 05:30] LABS: ALANINE AMINOTRANSFERASE 10 U/L (0-55); ALBUMIN 3.9 GM/DL (3.2-4.5); ALKALINE PHOSPHATASE 66 U/L (40-136); BILIRUBIN,TOTAL 0.8 MG/DL (0.1-1.0); BUN/CREATININE RATIO 21; CALCIUM 8.5 MG/DL (8.5-10.1); CARBON DIOXIDE 25 MMOL/L (21-32); CHLORIDE 109 MMOL/L (98-107); CREATININE SERUM 0.76 MG/DL (0.60-1.30); GFR ESTIMATED > 60; GLUCOSE 101 MG/DL (70-105); POTASSIUM 4.5 MMOL/L (3.6-5.0); SODIUM 139 MMOL/L (135-145); TOTAL PROTEIN 7.2 GM/DL (6.4-8.2)
[2017-10-26 05:31] LABS: CHOLESTEROL 81 MG/DL (< 200); HDL CHOLESTEROL 21 MG/DL (40-60); TRIGLYCERIDES 68 MG/DL (<150); VLDL CHOLESTEROL 14 MG/DL (5-40)
[2017-10-26] MEDS: DOXYCYCLINE 100 MG (VIBRAMYCIN) TABLET PO SCH (06:25)
[2017-10-26 08:30] VITALS: BP 110/64
[2017-10-26] MEDS ORDERED: ASPIRIN E.C. 81 MG (ECOTRIN) TAB PO SCH (09:00)
[2017-10-26] MEDS ORDERED: ASPIRIN E.C. 325 MG (ECOTRIN) TABLET PO SCH (09:00)
[2017-10-26] MEDS ORDERED: PANT40TA2 PO (10:34)
[2017-10-26] MEDS ORDERED: DOXY100T2 PO (10:34)
--- NOTE | 2017-10-26 10:41 | Discharge Instructions ---
Discharge Inst-[facility] Discharge Medications New, Converted or Re-Newed RX: Transmitted to Pharmacy ([facility]) New Medications: Doxycycline Hyclate (Doxycycline Hyclate) 100 Mg Tablet 100 MG PO BID@07,17 for 14 Days, #28 TAB Changed Medications: Pantoprazole Sodium (Protonix) 40 Mg Tablet.dr 40 MG PO DAILY for 30 Days, TAB (Medication details modified) Hold this medication until labs repeated Continued Medications: Acetaminophen (Tylenol Extra Strength) 500 Mg Tablet 1000 MG PO Q6H PRN for PAIN-MILD, TAB TAKES 2 (500MG) TABLETS Hydrocodone/Acetaminophen (Hydrocodone-Acetamin 5-325 mg) 1 Each Tablet 1 TAB PO Q6H PRN for PAIN-MODERATE, TAB Multivits-Minerals/FA/Lycopene (Men's Daily Formula Capsule) 1 Each Capsule 1 CAP PO DAILY, CAP Sucralfate (Carafate) 1 Gm Tablet 1 GM PO ACHS, TAB Discontinued Medications: Dicyclomine HCl (Dicyclomine HCl) 20 Mg Tablet 20 MG PO QID, TAB Patient Instructions Goal/Follow Up Appt: You will have a follow up appt with Jt Chisholm on WednesdayNovember 01 @ 2PM - Come to clinic and repeat labs this Wednesday Patient Instructions: - Make sure that you take your antibiotics - Discussed the importance of low impact activity due to splenomegaly - Discussed RTC precautions that including bleeding and bruising Return to The Hospital For: - Chest pain - Shortness of breath - Brusing or uncontrolled bleeding Activity & Diet Discharge Diet: No Restrictions Copy Copies To 1: Jt LAZARO HOLLY R MD October 26, 2017 10:40
== END 2017-10-26 10:34 | disposition home or self-care (01) ==
LOC: EDUNIT# 04:31 → ER 04:33 → UNDOADMOB 06:35 → 4TH 06:35 → UNDODISOB 10-26 11:15
PROVIDERS: ADMIT Family Medicine; ATTEND Family Medicine
DX: R07.89 Other chest pain (principal); D61.818 Other pancytopenia; R16.1 Splenomegaly, not elsewhere classified; R59.0 Localized enlarged lymph nodes; K21.0 Gastro-esophageal reflux disease with esophagitis; E66.9 Obesity, unspecified; Z68.39 Body mass index [BMI] 39.0-39.9, adult; Z86.010 Personal history of colon polyps
CPT/HCPCS: 36415; 71045; 71275; 74177; 80053; 80061; 80306; 81000; 82150; 82550; 82553; 82728; 83036; 83540; 83690; 83735; 83874; 83880; 84484; 85007; 85027; 85045; 85610; 85730; 86618; 86666; 86668; 86757; 93005; 93041; 96374; G0378

== ENCOUNTER 2018-03-05 16:39 | Emergency (ER) | payer SELFPAY ==
[~2018-03-05] VITALS: Ht 180.3 cm; Wt 97.5 kg
[~2018-03-05 16:39] MED LIST changes: +ACET-2267 PO; +DOXY100T2 PO; +MULT1CAP14 PO
--- NOTE | 2018-03-05 18:20 | ED General ---
General Chief Complaint: General Problems/Pain Stated Complaint: PAIN IN NECK,PAIN DOWN LEGS Nursing Triage Note: PT STATES NUMBNESS/PAIN IN NECK DOWN. Nursing Sepsis Screen: No Definite Risk Source of Information: Patient Exam Limitations: No Limitations (ANDIE MCCRAY MD) History of Present Illness Date Seen by Provider: Mar 05, 2018 Time Seen by Provider: 17:15 Initial Comments This 43-year-old gentleman presents to the emergency room with complaints of pain below the left ear radiating down beneath the angle of the jaw 1 week. He is afebrile. There are no overt masses in that area. 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 He also reports concern about a family history of chest pain and having had some chest pains in recent days. He denies any chest pain in the last 24 hours. He also reports having some pains in the lower legs which are chronic in nature and intermittent. He does have some dental caries in the molars on the lower left and some tenderness over the jaw in that area. He also has history of tularemia. He believes chest pain may be related to hiatal hernia and GERD. (ANDIE MCCRAY MD) 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/08) Home Medications Acetaminophen 500 Mg Tablet, 1,000 MG PO Q6H PRN for PAIN-MILD, (Reported) TAKES 2 (500MG) TABLETS Amoxicillin 500 Mg Capsule, 500 MG PO TID Prescribed by: AZALIA LAWS on 03/05/181925 Doxycycline Hyclate 100 Mg Tablet, 100 MG PO BID@,17 Prescribed by: REDDY ROQUE on 10/26/17 1034 Hydrocodone/Acetaminophen 1 Each Tablet, 1 TAB PO Q6H PRN for PAIN-MODERATE, ( Reported) Multivits-Minerals/FA/Lycopene 1 Each Capsule, 1 CAP PO DAILY, (Reported) Pantoprazole Sodium 40 Mg Tablet.dr, 40 MG PO DAILY Hold this medication until labs repeated Prescribed by: REDDY ROQUE on 10/26/17 1034 Sucralfate 1 Gm Tablet, 1 GM PO ACHS, (Reported) Patient Home Medication List Home Medication List Reviewed: Yes (ANDIE MCCRAY MD) Review of Systems Review of Systems Constitutional: no symptoms reported EENTM: see HPI Respiratory: no symptoms reported Cardiovascular: see HPI Gastrointestinal: see HPI Genitourinary: no symptoms reported Musculoskeletal: no symptoms reported Skin: no symptoms reported Psychiatric/Neurological: No Symptoms Reported Hematologic/Lymphatic: See HPI (ANDIE MCCRAY MD) Past Qirivjz-Jyzsvb-Psdfkj Hx Past Med/Social Hx: Reviewed and Corrections made (ANDIE MCCRAY MD) Patient Social History Recent Foreign Travel: No Contact w/Someone Who Travel: No Recent Infectious Disease Expo: No Recent Hopitalizations: No (ANDIE MCCRAY MD) Immunizations Up To Date Tetanus Booster (TDap): Less than 5yrs PED Vaccines UTD: Yes (ANDIE MCCRAY MD) Seasonal Allergies Seasonal Allergies: No (ANDIE MCCRAY MD) Past Medical History Surgeries: Yes (PERIRECTAL ABSCESS; SPHINCTEROTOMY; EGD/COLONOSCOPY) Appendectomy Respiratory: No Currently Using CPAP: No Currently Using BIPAP: No Cardiac: Yes Heart Murmur, Hypertension Neurological: No Reproductive Disorders: No Sexually Transmitted Disease: No HIV/AIDS: No Genitourinary: No Gastrointestinal: Yes (RECTAL BLEEDING, HX POLYPS; PERIRECTAL ABSCESS) Gastroesophageal Reflux, Chronic Diarrhea, Polyps, Hiatal Hernia Musculoskeletal: Yes Arthritis, Fractures Endocrine: No (OBESITY) Loss of Vision: Denies Hearing Impairment: Denies Cancer: Yes Leukemia (Hariy cell) Did You Recieve Any Treatments: Yes What Type of Treatment Did You: Chemotherapy Psychosocial: No Integumentary: No Blood Disorders: No Adverse Reaction/Blood Tranf: No (ANDIE MCCRAY MD) Family Medical History Cardiovascular disease 19 FATHER 19 MOTHER (bipass surgery) Diabetes mellitus 19 MOTHER Hypertension 19 FATHER Myocardial infarction 19 FATHER ( at age 46 from [place]) Heart Disease, Diabetes (ANDIE MCCRAY MD) Physical Exam Vital Signs Vital Signs - First Documented 03/05/18 16:51 Temp 99.9 Pulse 104 Resp 20 B/P (MAP) 127/107 (114) Pulse Ox 98 O2 Delivery Room Air (AZALIA LAWS) Vital Signs Capillary Refill : Less Than 3 Seconds (ANDIE MCCRAY MD) Height, Weight, BMI Height: 5'11.00" Weight: 215lbs. 13.8oz. 97.239253nb; 39.6 BMI Method:Estimated General Appearance: No Apparent Distress, WD/WN, Obese HEENT: PERRL/EOMI, Pharynx Normal, Other (dental caries in the left lower molars. Tenderness along the jaw line associated with these teeth) Neck: Normal Inspection, Supple; No Lymphadenopathy (L), No Lymphadenopathy (R) ; Other (minimal tenderness under the angle of the left jaw) Respiratory: Lungs Clear, Normal Breath Sounds, No Accessory Muscle Use, No Respiratory Distress Cardiovascular: Regular Rate, Rhythm, No Edema, No Murmur Gastrointestinal: Normal Bowel Sounds, Non Tender, Soft Extremity: No Pedal Edema, Other (slight swelling over the anterior lateral aspect of the proximal left lower leg and tenderness in this area, stated as chronic and intermittent.) Neurologic/Psychiatric: Alert, Oriented x3, No Motor/Sensory Deficits, Normal 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, 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 Norm as 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 Skin: Normal Color, Warm/Dry (ANDIE MCCRAY MD) Progress/Results/Core Measures Suspected Sepsis Recent Fever Within 48 Hours: No Infection Criteria Present: None New/Unexplained Altered Menta: No Sepsis Screen: No Definite Risk SIRS Temperature:99.9 Pulse: 104 Respiratory Rate: 20 Blood Pressure 127 /107 Mean: 114 (ANDIE MCCRAY MD) Results/Orders Lab Results Laboratory Tests Test 03/05/18 18:20 03/05/18 18:39 Range/Units White Blood Count 6.8 4.3-11.0 10^3/uL Red Blood Count 5.22 4.35-5.85 10^6/uL Hemoglobin 15.7 13.3-17.7 G/DL Hematocrit 45 40-54 % Mean Corpuscular Volume 85 80-99 FL Mean Corpuscular Hemoglobin 30 25-34 PG Mean Corpuscular Hemoglobin Concent 35 32-36 G/DL Red Cell Distribution Width 12.9 10.0-14.5 % Platelet Count 170 130-400 10^3/uL Mean Platelet Volume 11.1 H 7.4-10.4 FL Neutrophils (%) (Auto) 73 42-75 % Lymphocytes (%) (Auto) 17 12-44 % Monocytes (%) (Auto) 7 0-12 % Eosinophils (%) (Auto) 3 0-10 % Basophils (%) (Auto) 0 0-10 % Neutrophils # (Auto) 5.0 1.8-7.8 X 10^3 Lymphocytes # (Auto) 1.1 1.0-4.0 X 10^3 Monocytes # (Auto) 0.5 0.0-1.0 X 10^3 Eosinophils # (Auto) 0.2 0.0-0.3 10^3/uL Basophils # (Auto) 0.0 0.0-0.1 10^3/uL Prothrombin Time 13.0 12.2-14.7 SEC INR Comment 1.0 0.8-1.4 Activated Partial Thromboplast Time 29 24-35 SEC Sodium Level 140 135-145 MMOL/L Potassium Level 4.3 3.6-5.0 MMOL/L Chloride Level 105 98-107 MMOL/L Carbon Dioxide Level 22 21-32 MMOL/L Anion Gap 13 5-14 MMOL/L Blood Urea Nitrogen 17 7-18 MG/DL Creatinine 0.86 0.60-1.30 MG/DL Estimat Glomerular Filtration Rate > 60 BUN/Creatinine Ratio 20 Glucose Level 104 70-105 MG/DL Calcium Level 9.7 8.5-10.1 MG/DL Corrected Calcium 8.5-10.1 MG/DL Magnesium Level 2.6 H 1.8-2.4 MG/DL Total Bilirubin 0.4 0.1-1.0 MG/DL Aspartate Amino Transf (AST/SGOT) 19 5-34 U/L Alanine Aminotransferase (ALT/SGPT) 25 0-55 U/L Alkaline Phosphatase 108 40-136 U/L Myoglobin 28.0 10.0-92.0 NG/ML Troponin I < 0.30 <0.30 NG/ML Total Protein 8.0 6.4-8.2 GM/DL Albumin 4.6 H 3.2-4.5 GM/DL D-Dimer 0.20 0.00-0.49 UG/ML (AZALIA LAWS) Medications Given in ED Current Medications Medications Dose Ordered Sig/Pablo Route Start Time Stop Time Status Last Admin Dose Admin Sodium Chloride 1,000 ml @ 0 mls/hr Q0M ONCE IV 9/15/18 18:29 03/05/18 18:30 DC 03/05/18 18:44 0 MLS/HR (AZALIA LAWS) Vital Signs/I&O 03/05/18 03/05/18 16:51 18:15 Temp 99.9 Pulse 104 Resp 20 B/P (MAP) 127/107 (114) Pulse Ox 98 99 O2 Delivery Room Air Room Air (AZALIA LAWS) Vital Signs/I&O Capillary Refill : Less Than 3 Seconds (ANDIE MCCRAY MD) Blood Pressure Mean: 114 Progress Note : Time: 18:26 Progress Note General workup to include EKG and troponin is being pursued. Care of this patient is being transferred to Dr. Laws at this time. At a minimum, we plan to treat dental caries with antibiotics and have him seek evaluation by dentist. Dr. Laws will review labs. EKG demonstrated sinus tachycardia. Chest x-ray was unremarkable. Since patient is tachycardic we will administer some IV fluids and check a d-dimer. (ANDIE MCCRAY MD) ECG Initial ECG Impression Date: Mar 05, 2018 Initial ECG Impression Time: 18:28 Initial ECG Rate: 107 Initial ECG Rhythm: S.Tach Comment Sinus tachycardia with no ST elevation or depression. No abnormal intervals. LVH by automated read. (ANDIE MCCRAY MD) Diagnostic Imaging Diagonstic Imaging: Xray Plain Films/CT/US/NM/MRI: chest Comments Chest x-ray viewed by me and report reviewed. See report below: NAME: JOEL VAZQUEZ [facility] REC#: [id number] PT STATUS: REG ER : 1975 PHYSICIAN: ANDIE MCCRAY MD ADMIT DATE: 03/05/18/ER Draft Date of Exam:03/05/18 CHEST PA/LAT (2 VIEW) INDICATION: Left-sided face and neck tingling. Comparison is made with prior study from October 25, 2017. FINDINGS: The lungs demonstrate no focal pulmonary infiltrate or consolidation. There is no evidence of effusion. There is no pneumothorax. Heart size and mediastinal contours appear appropriate. Pulmonary vascularity appears normal. There is no evidence of edema. No acute or suspicious osseous abnormality demonstrated. IMPRESSION: 1. No radiographic evidence of an acute cardiopulmonary process. Dictated on workstation # [id number] Dict: 03/05/18 1815 Trans: 03/05/18 [id number] Interpreted by: VISHNU LOCKHART (ANDIE MCCRAY MD) Departure Impression Primary Impression: Dental caries Additional Impressions: Jaw pain Hairy cell leukemia Qualified Codes: C91.41 - Hairy cell leukemia, in remission Chest pain Qualified Codes: R07.9 - Chest pain, unspecified Disposition: HOME, SELF-CARE Condition: Stable Departure-Patient Inst. Decision time for Depature: 19:24 (AZALIA LAWS) [place] [facility] [place] Primary Care Physician Patient Instructions: Dental Pain (DC) Add. Discharge Instructions: Start the antibiotics 1 tablet 3 times a day and follow-up with a dentist. If you're having worsening or new symptoms you may return to the ER or your primary care doctor for further evaluation. All discharge instructions reviewed with patient and/or family. Voiced understanding. Scripts Amoxicillin (Amoxicillin) 500 Mg Capsule 500 MG PO TID for 7 Days, #21 CAP 0 Refills Prov: AZALIA LAWS 03/05/18 ANDIE MCCRAY MD Mar 05, 2018 18:20 AZALIA LAWS Mar 05, 2018 18:53
[2018-03-05] MEDS ORDERED: NS IV 1000 ML 1,000 ML IV ONE (18:29)
[2018-03-05 18:47] LABS: BASOPHILS % (AUTO) 0 % (0-10); EOSINOPHILS # (AUTO) 0.2 10^3/uL (0.0-0.3); EOSINOPHILS % (AUTO) 3 % (0-10); HEMATOCRIT 45 % (40-54); HEMOGLOBIN 15.7 G/DL (13.3-17.7); LYMPHOCYTES # (AUTO) 1.1 X 10^3 (1.0-4.0); LYMPHOCYTES % (AUTO) 17 % (12-44); MEAN CORPUSCULAR HEMOGLOBIN 30 PG (25-34); MEAN CORPUSCULAR HGB CONC 35 G/DL (32-36); MEAN CORPUSCULAR VOLUME 85 FL (80-99); MEAN PLATELET VOLUME 11.1 FL (7.4-10.4); MONOCYTES # (AUTO) 0.5 X 10^3 (0.0-1.0); MONOCYTES % (AUTO) 7 % (0-12); NEUTROPHILS % (AUTO) 73 % (42-75); PLATELET COUNT 170 10^3/uL (130-400); RED BLOOD COUNT 5.22 10^6/uL (4.35-5.85); RED CELL DISTRIBUTION WIDTH 12.9 % (10.0-14.5); WHITE BLOOD COUNT 6.8 10^3/uL (4.3-11.0)
[2018-03-05 19:03] LABS: ALANINE AMINOTRANSFERASE 25 U/L (0-55); ALBUMIN 4.6 GM/DL (3.2-4.5); ALKALINE PHOSPHATASE 108 U/L (40-136); BILIRUBIN,TOTAL 0.4 MG/DL (0.1-1.0); BUN/CREATININE RATIO 20; CALCIUM 9.7 MG/DL (8.5-10.1); CARBON DIOXIDE 22 MMOL/L (21-32); CHLORIDE 105 MMOL/L (98-107); CREATININE SERUM 0.86 MG/DL (0.60-1.30); GFR ESTIMATED > 60; GLUCOSE 104 MG/DL (70-105); MAGNESIUM 2.6 MG/DL (1.8-2.4); POTASSIUM 4.3 MMOL/L (3.6-5.0); SODIUM 140 MMOL/L (135-145)
[2018-03-05] MEDS ORDERED: AMOX500C2 PO (19:26)
[2018-03-05 19:54] VITALS: BP 106/76
== END 2018-03-05 19:50 | disposition home or self-care (01) ==
LOC: EDUNIT# 16:39 → ER 16:41
DX: K02.9 Dental caries, unspecified (principal); R68.84 Jaw pain; C91.41 Hairy cell leukemia, in remission; R07.9 Chest pain, unspecified; I10 Essential (primary) hypertension; K21.9 Gastro-esophageal reflux disease without esophagitis; E66.9 Obesity, unspecified; Z92.21 Personal history of antineoplastic chemotherapy; Z82.49 Family history of ischemic heart disease and other diseases of the circulatory system; Z68.39 Body mass index [BMI] 39.0-39.9, adult; Z87.19 Personal history of other diseases of the digestive system; Z86.010 Personal history of colon polyps; Z88.5 Allergy status to narcotic agent; Z88.8 Allergy status to other drugs, medicaments and biological substances; Z90.89 Acquired absence of other organs
CPT/HCPCS: 36415; 71046; 80053; 83735; 83874; 84484; 85025; 85379; 85610; 85730; 93005; 93041; 96360

== ENCOUNTER 2018-06-13 15:32 | Emergency (ER) | payer SELFPAY ==
[~2018-06-13] VITALS: Ht 175.3 cm; Wt 117.9 kg
[~2018-06-13 15:32] MED LIST changes: +AMOX500C2 PO
--- OUTSIDE RECORDS SUMMARY | 2018-06-13 15:40 | XMS REPORT ---
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 Name Role Phone NHI RAMON Unavailable PROBLEMS Type Condition ICD9-CM Code [id number] Code Onset Dates Condition Status SNOMED Code Problem GERD with esophagitis K21.0 Active 093005922 Problem Morbid (severe) obesity due to excess calories E66.01 Active 46741267578294 Problem Essential hypertension I10 Active 95025167 Problem Other chronic pain G89.29 Active 45962536 Problem Gastroesophageal reflux disease with esophagitis K21.0 Active 821330279 Problem Other ulcerative colitis without complication K51.80 Active 71461972 Problem Pancytopenia D61.818 Active 043740709 Problem Temporary low platelet count D69.6 Active 190887860 Problem Body mass index (BMI) of 40.0-44.9 in adult Z68.41 Active 414491008 Problem Body mass index (BMI) of 45.0-49.9 in adult Z68.42 Active 072208650 Problem Neutropenia, unspecified type D70.9 Active 493608495 Problem Other chronic pain G89.29 Active 85099351 ALLERGIES Substance Reaction Event Type Date Status Morphine Sulfate nausea and vomiting Drug Allergy Apr, Active ENCOUNTERS Encounter Location Date Diagnosis [facility] [id number] [place] [address] 51274- 9289 May, Other chronic pain G89.29 [facility] [id number] [place] [address] 79887- 4657 May, Pain of left leg M79.605 [facility] [id number] [place] [address] 09137 -3401 Apr, Acute upper respiratory infection J06.9 [facility] [id number] [place] [address] 21169 -5829 Apr, [facility] [address] [address] Apr, [facility] [address] [place] [address] 792673- 1190 Mar, Pain of left leg M79.605 and Pain in right leg M79.604 [facility] [id number] [place] [address] 12853 -8439 Mar, [facility] [id number] [place] [address] 28872 -3786 Mar, Rash R21 [facility] [id number] [place] [address] 13050- 0408 Mar, [facility] [id number] [place] [address] 14068- 0968 Feb, Leukemia in remission, 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 [facility] [address] [address] Feb, [place] eye disease of right eye H10.021 and BMI 40.0-44.9, adult Z68.41 [facility] [address] [address] 44[address] Jan, Other chronic pain G89.29 [facility] [address] [place] [address] 37417- 1367 Dec, Other chronic pain G89.29 [facility] [address] [place] [address] 73665- 6706 Nov, Other chronic pain G89.29 [facility] [id number] [place] [address] 78325- 3446 Nov, [facility] [address], [place] [address] 8[address] Nov, [facility] [id number] [place] [address] 00217- 5570 October, Other chronic pain G89.29 ; Pain in right knee M25.561 ; Pain in left knee M25.562 and Abdominal pain, left lower quadrant R10.32 [facility] [id number] [place] [address] 04931- 7081 October, [facility] [id number] [place] [address] 79947- 0542 October, Splenomegaly R16.1 ; Neutropenia, unspecified type D70.9 and Temporary low platelet count D69.6 [facility] [id number] [place] [address] 80567 -8980 October, [facility] [id number] [place] [address] 77602- 3724 October, Pancytopenia D61.818 [facility] [id number] [place] [address] 71599- 5207 October, [facility] [id number] [place] [address] 17935- 5743 October, [facility] [id number] [place] [address] 49538- 6659 October, Pancytopenia D61.818 [facility] [id number] [place] [address] 15603- 3669 Sep, Other chronic pain G89.29 ; Pain in left knee M25.562 ; Pain in right knee M25.561 and Abdominal pain, left lower quadrant R10.32 [place] [facility] [id number] [place] [address] 74029- 4690 Sep, Edema of left lower extremity R60.0 ; Essential hypertension I10 ; Morbid (severe) obesity due to excess calories E66.01 ; Body mass index (BMI) of 40.0-44.9 in adult Z68.41 and Hiatal hernia K44.9 [facility] [id number] [place] [address] 00506- 4729 Aug, [place] [id number] [place] [address] 57676- 3336 Aug, [place] [id number] [place] [address] 96512- 9715 Jul, Pain in right shoulder M25.511 [place] [address] 21631- 0862 Jul, [facility] [place] [address] 04406 -1023 Jul, Localized edema R60.0 and BMI 40.0-44.9, adult Z68.41 [place] [address] 15340- 6376 Jul, [place] [address] 02859- 3722 Jun, Edema of left lower extremity R60.0 ; Essential hypertension I10 ; Family history of coronary artery disease Z82.49 ; Morbid ( severe) obesity due to excess calories E66.01 and Body mass index (BMI) of 45.0- 49.9 in adult Z68.42 [place] [id number] [place] [address] 45441- 8695 Jun, Other chronic pain G89.29 [place] [id number] [place] [address] 86054- 2932 Jun, Pain in right shoulder M25.511 [place] [id number] [place] [address] 20093- 8788 Jun, Other ulcerative colitis without complication K51.80 [facility] [id number] [place] [address] 47037 -5859 May, [place] [id number] [place] [address] 55703- 7291 May, GERD with esophagitis K21.0 ; Other ulcerative colitis without complication K51.80 and Other chest pain R07.89 [facility] [address] [facility] [id number] [address] May, [facility] [id number] [place] [address] 18674 -8896 May, Left leg swelling M79.89 [facility] [id number] [place] [address] 04037- 4493 Apr, Pain in right shoulder M25.511 [facility] [id number] [place] [address] 70869- 2254 Apr, Pain in right shoulder M25.511 [facility] [id number] [place] [address] 47485- 7666 Mar, [facility] [id number] [place] [address] 66581- 2257 Mar, Pain in right shoulder M25.511 [facility] [id number] [place] [address] 91939- 1145 Mar, [facility] [id number] [place] [address] 87562- 6435 Mar, [facility] [id number] [place] [address] 40906- 9656 Feb, Pain in right shoulder M25.511 [facility] [id number] [place] [address] 99746- 6771 Jan, Pain in right shoulder M25.511 [facility] [address] [address]- 0816 Jan, [facility] [id number] [place] [address] 98096- 2064 Dec, Pain in right shoulder M25.511 [facility] [address] 4176 Nov, Pain in right shoulder M25.511 [facility] [id number] [place] [address] 99689- 1960 Nov, Pain in right shoulder M25.511 [facility] [address], [place] [address]- 7796 October, Pain in right shoulder M25.511 [facility] [address] [address]- 7946 Sep, Pain in right shoulder M25.511 [facility] [id number] [place] [address] 87630- 7237 Aug, Pain in right shoulder M25.511 [facility] [address] [place] [address] 71102- 8045 Jul, Pain in right shoulder M25.511 [facility] [id number] [place] [address] 75200- 6976 Jul, Pain in left shoulder M25.512 [facility] [id number] [place] [address] 86053- 9511 Jul, Other chronic pain G89.29 [facility] [id number] [address]- 0925 Jul, Pain in right shoulder M25.511 ; Other chronic pain G89.29 ; Pain in left shoulder M25.512 and Gastroesophageal reflux disease with esophagitis K21.0 [facility] [address], [place] [address]- 8493 Jun, [facility] [id number], [place] [address]- 7990 May, [facility] [address] 1066 May, [facility] [id number] [place] [address] 625426- 5006 15 Apr, 2016 [facility] [address] [address]- 0586 Mar, [facility] [id number] [address]- 8280 22 Feb, 2016 [facility] [id number] [place] [address] 79981- 4067 13 Feb, 2016 [facility] [id number] [place] [address] 49515- 9630 12 Feb, 2016 [facility] [id number] [place] [address] 42827- 3121 06 Feb, 2016 [facility] [id number] [place] [address] 49256- 8249 Jan, [facility] [id number] [place] [address] 10885- 6281 Dec, Pain in left shoulder M25.512 [facility] [id number] [place] [address] 03840- 7587 Dec, Gastroesophageal reflux disease, esophagitis presence not specified K21.9 [facility] [id number] [place] [address] 99763- 8556 Nov, Pain in left shoulder M25.512 [facility] [id number] [place] [address] 61207- 6248 October, Pain in left shoulder M25.512 [facility] [id number] [place] [address] 71224- 1294 Sep, Shoulder pain, left M25.512 [facility] [id number] [place] [address] 97888- 0325 Aug, Pain in right shoulder M25.511 and Other chronic pain G89.29 [facility] [id number] [place] [address] 85785- 8859 Aug, Shoulder pain, right M25.511 and GERD (gastroesophageal reflux disease) K21.9 [facility] [id number] [place] [address] 95246- 8738 Nov, [facility] [address] [address] [place] [address]- 7467 14 Sep, 2014 [facility] [place] [facility] [address] [id number] [place] [address]- 2952 13 Sep, 2014 [facility] [place] [facility] [address] [id number] [place] [address]- 9316 23 Jul, 2014 [facility] [place] [facility] [address] [id number] [place] [address]- 9606 Jul, 2014 [facility] [place] [facility] [address] [id number] [place] [address]- 5595 Jul, 2014 [facility] [place] [facility] [address] [id number] [place] 6305 Jul, 2014 [facility] [place] [facility] [address] [facility] [id number] [place] [address]- 5729 Jul, 2014 [facility] [place] [facility] [address] [facility] [id number] [place] [address]- 8153 Jul, [facility] [place] [facility] [address] [id number] [place] [address]- 0882 Jun, [facility] [place] [facility] [address] [facility] [id number] [place] [address]- 8949 Jun, [facility] [place] [facility] [address] [facility] [id number] [place] [address]- 7043 Apr, [facility] [place] [facility] [address] [id number] [place] [address]- 1056 Apr, [facility] [place] [facility] [address] [id number] [place] [address]- 9779 Apr, [facility] [place] [facility] [address] [id number] [place] [address]- 3826 12 Feb, 2014 [facility] [place] [facility] [address] [facility] [id number] [place] [address]- 7736 12 Feb, 2014 [facility] [place] [facility] [address] [facility] [id number] [place] [address]- 0437 Feb, [facility] [place] [facility] [address] [id number] [place] [address]- 8881 11 Feb, 2014 [facility] [place] [facility] [address] [id number] [place] [address]- 4309 Aug, [facility] [place] [facility] [address] [id number] [place] [address]- 4550 Aug, [facility] [place] [facility] [address] [id number] [place] [address]- 0350 Mar, [facility] [place] [facility] [address] [id number] [place] [address]- 8908 Mar, [facility] [place] [facility] [address] [id number] [place] [address]- 9778 Mar, [facility] [place] [facility] [address] [id number] [place] [address]- 6829 Mar, [facility] [place] [facility] [address] [id number] [place] [address]- 1235 Feb, [facility] [place] [facility] [address] [id number] [place] [address]- 6959 06 Feb, 2013 [facility] [place] [facility] [address] [id number] [place] [address]- 6414 Feb, [facility] [place] [facility] [address] [id number] [place] [address]- 8216 30 Jan, 2013 [facility] [place] [facility] [address] [id number], [place] [address]- 9669 Jan, [facility] [place] [facility] [address] [id number] [place] [address]- 0838 Dec, [facility] [place] [facility] [address] [id number] [place] [address]- 4988 15 Dec, 2012 [facility] [place] [facility] [address] [id number] [place] [address]- 7714 Nov, [facility] [place] [facility] [id number] [address]- 2378 14 Nov, 2012 [facility] [address] 3988 Jan, [facility] [address] [place] [address]- 4723 Jan, [facility] [address] [place] [address] 19879- 0009 Aug, [facility] [id number] [place] [address] 11815- 0953 Jun, [facility] [id number] [place] [address] 79633- 8344 Jun, [facility] [address] [place] [address] 55912- 2813 Apr, [facility] [address] [place] [address] 44568- 5090 Feb, IMMUNIZATIONS No Known Immunizations SOCIAL HISTORY Never Assessed REASON FOR VISIT cough/congestion for a little over a month. pt has no copay...will go ahead et see him in the [facility] per this RNMalorie franco PLAN OF CARE Activity Details Follow Up if not improving with PCP or reg follow up Reason: VITAL SIGNS Height 69 in 2018-05-14 Weight 250.0 lbs 2018-05-14 Temperature 97.9 degrees Fahrenheit 2018-05-14 Heart Rate 80 bpm 2018-05-14 Respiratory Rate 20 2018-05-14 BMI 36.91 kg/m2 2018-05-14 Blood pressure systolic 126 mmHg 2018-05-14 Blood pressure diastolic 76 mmHg 2018-05-14 MEDICATIONS Medication Instructions Dosage Frequency Start Date End Date Duration Status [place] 5-325 MG Orally every 6 hrs 1 tablet as needed 6h Mar, 28 days Active Bactrim DS 800-160 MG Orally 2 times a day 1 tablet 12h Jan, 10 day(s) Active Tylenol Extra Strength 500 mg Orally every 6 hrs 2 tablets as needed 6h Active Mens Daily Formula/Lycopene - Active Cetirizine HCl 10 MG Orally Once a day 1 tablet 24h Apr, 30 day (s) Active Protonix 40 mg Orally Once a day 1 tablet 24h Feb, 30 day(s) Active RESULTS No Results PROCEDURES No Known procedures INSTRUCTIONS MEDICATIONS ADMINISTERED No Known Medications MEDICAL (GENERAL) HISTORY Type Description Date Medical History colitis Medical History right shoulder pain Medical History anup cell leukemia Medical History chemo Surgical History Appendectomy Surgical History Abscess drained and removed Hospitalization History surgery Hospitalization History dehydration Hospitalization History chest pain, pancytopenia, slenomegaly-[facility] 10/25/17
--- OUTSIDE RECORDS SUMMARY | 2018-06-13 15:41 | XMS REPORT ---
Author Author AMY HALEY Organization [facility] [place] Address [address] [place] [address] Care Team Providers Care Stacker Name Role Phone AMY HALEY Unavailable PROBLEMS Type Condition ICD9-CM Code IEM47-WO Code Onset Dates Condition Status SNOMED Code Problem GERD with esophagitis K21.0 Active 199353588 Problem Morbid (severe) obesity due to excess calories E66.01 Active 29021557314380 Problem Essential hypertension I10 Active 48829086 Problem Other chronic pain G89.29 Active 57889277 Problem Gastroesophageal reflux disease with esophagitis K21.0 Active 453563437 Problem Other ulcerative colitis without complication K51.80 Active 26089498 Problem Pancytopenia D61.818 Active 485944517 Problem Temporary low platelet count D69.6 Active 016112900 Problem Body mass index (BMI) of 40.0-44.9 in adult Z68.41 Active 833814985 Problem Body mass index (BMI) of 45.0-49.9 in adult Z68.42 Active 805355993 Problem Neutropenia, unspecified type D70.9 Active 559320006 Problem Other chronic pain G89.29 Active 62787949 ALLERGIES No Information ENCOUNTERS Encounter Location Date Diagnosis [facility] [place] [id number] [place] [address] 84017- 5317 May, Other chronic pain G89.29 [facility] [place] [id number] [place] [address] 02662- 6759 May, Pain of left leg M79.605 [facility] [id number] [place] [address] 91531 -6071 Apr, Acute upper respiratory infection J06.9 [facility] [address] [address] Apr, [facility] [place] [address] [address] Apr, [facility] [place] [id number] [place] [address] 91368- 1801 Mar, Pain of left leg M79.605 and Pain in right leg M79.604 [facility] [id number] [place] [address] 20741 -9856 Mar, [facility] [id number] [place] [address] 45887 -9358 Mar, Rash R21 [facility] [place] [id number] [place] [address] 49757- 9614 Mar, [facility] [place] [id number] [place] [address] 52494- 1286 Feb, Leukemia in remission, 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 [facility] IN [facility] [id number] [place] [address] 94882 -7437 Feb, [place] eye disease of right eye H10.021 and BMI 40.0-44.9, adult Z68.41 [facility] [id number] [place] [address] 37866- 4539 Jan, Other chronic pain G89.29 [place] [id number] [place] [address] 32170- 8006 Dec, Other chronic pain G89.29 [facility] [id number] [place] [address] 12082- 7516 Nov, Other chronic pain G89.29 [place] [id number] [place] [address] 85330- 1446 Nov, [place] [id number] [place] [address] 28333- 1806 Nov, [facility] [place] [address] [address] 6026 October, Other chronic pain G89.29 ; Pain in right knee M25.561 ; Pain in left knee M25.562 and Abdominal pain, left lower quadrant R10.32 [facility] [place] [address] 19854- 4316 October, [facility] [place] [address] 07938- 0514 October, Splenomegaly R16.1 ; Neutropenia, unspecified type D70.9 and Temporary low platelet count D69.6 [facility] [id number] [place] [address] 42068 -0986 October, [place] [address] 98149- 0577 October, Pancytopenia D61.818 [place] [address] 45763- 2322 October, [place] [address] 60496- 6546 October, [place] [address] 85847- 9761 October, Pancytopenia D61.818 [place] [address] 42833- 8621 Sep, Other chronic pain G89.29 ; Pain in left knee M25.562 ; Pain in right knee M25.561 and Abdominal pain, left lower quadrant R10.32 [place] [id number] [place] [address] 67212- 7119 Sep, Edema of left lower extremity R60.0 ; Essential hypertension I10 ; Morbid (severe) obesity due to excess calories E66.01 ; Body mass index (BMI) of 40.0-44.9 in adult Z68.41 and Hiatal hernia K44.9 [facility] [place] [id number] [place] [address] 13352- 4520 Aug, [place] [address] 20684- 4397 Aug, [place] [id number] [place] [address] 11610- 1250 Jul, Pain in right shoulder M25.511 [place] [id number] [place] [address] 17269- 5029 05 Jul[facility] 2017 [facility] [id number] [place] [address] 67238 -2578 Jul, Localized edema R60.0 and BMI 40.0-44.9, adult Z68.41 [place] [id number] [place] [address] 67587- 4020 Jul, [place] [id number] [place] [address] 45681- 6994 Jun, Edema of left lower extremity R60.0 ; Essential hypertension I10 ; Family history of coronary artery disease Z82.49 ; Morbid ( severe) obesity due to excess calories E66.01 and Body mass index (BMI) of 45.0- 49.9 in adult Z68.42 [place] [id number] [place] [address] 47590- 3839 Jun, Other chronic pain G89.29 [place] [id number] [place] [address] 82942- 7524 Jun, Pain in right shoulder M25.511 [place] [id number] [place] [address] 33090- 1970 Jun, Other ulcerative colitis without complication K51.80 [facility] [id number] [place] [address] 65739 -3536 May, [place] [address] 66550- 4358 May, GERD with esophagitis K21.0 ; Other ulcerative colitis without complication K51.80 and Other chest pain R07.89 [place] [id number] [place] [address] 22258- 4556 May, [facility] [address], [place] [address] May, Left leg swelling M79.89 [facility] [place] [id number] [place] [address] 36680- 8056 Apr, Pain in right shoulder M25.511 [facility] [place] [id number] [place] [address] 72856- 2606 Apr, Pain in right shoulder M25.511 [facility] [place] [id number] [place] [address] 89053- 6206 Mar, [facility] [place] [id number] [place] [address] 498969- 3476 Mar, Pain in right shoulder M25.511 [facility] [place] [id number] [place] [address] 43563- 8776 Mar, [facility] [place] [id number] [place] [address] 96801- 9140 Mar, [facility] [place] [id number] [place] [address] 52771- 1310 Feb, Pain in right shoulder M25.511 [facility] [place] [id number] [place] [address] 36562- 5376 Jan, Pain in right shoulder M25.511 [facility] [place] [id number] [place] [address] 04518- 9396 Jan, [facility] [place] [id number] [place] [address] 55135- 0637 Dec, Pain in right shoulder M25.511 [facility] [place] [id number] [place] [address] 76861- 6806 Nov, Pain in right shoulder M25.511 [facility] [place] [id number] [address] 2546 Nov, Pain in right shoulder M25.511 [facility] [place] [address], [place] [address]- 7113 October, Pain in right shoulder M25.511 [facility] [place] [id number] [place] [address] 96329- 3826 Sep, Pain in right shoulder M25.511 [facility] [place] [id number] [place] [address] 17975- 8766 Aug, Pain in right shoulder M25.511 [facility] [place] [id number] [place] [address] 53805- 9623 Jul, Pain in right shoulder M25.511 [facility] [place] [id number] [place] [address] 43366- 7006 Jul, Pain in left shoulder M25.512 [facility] [place] [id number] [place] [address] 09530- 2729 Jul, Other chronic pain G89.29 [facility] [place] [id number] [place] [address] 23226- 4000 Jul, Pain in right shoulder M25.511 ; Other chronic pain G89.29 ; Pain in left shoulder M25.512 and Gastroesophageal reflux disease with esophagitis K21.0 [facility] [place] [address] [address]- 0167 Jun, [facility] [place] [id number] [place] [address] 47863- 8236 May, [facility] [place] [id number] [address]- 4874 May, [facility] [place] [id number] [place] [address] 91231- 9176 15 Apr, 2016 [facility] [place] [id number] [address]- 6476 Mar, [facility] [place] [id number] [place] [address] 21777- 8403 Feb, [facility] [place] [address], [place] [address]- 2393 13 Feb, 2016 [facility] [place] [id number] [place] [address] 84238- 1144 12 Feb, 2016 [facility] [place] [id number] [place] [address] 28573- 7904 06 Feb, 2016 [facility] [place] [id number] [place] [address] 75809- 1237 Jan, [facility] [place] [id number] [place] [address] 62943- 7637 Dec, Pain in left shoulder M25.512 [facility] [place] [id number] [place] [address] 35774- 1129 Dec, Gastroesophageal reflux disease, esophagitis presence not specified K21.9 [facility] [place] [id number] [place] [address] 24838- 6295 Nov, Pain in left shoulder M25.512 [facility] [place] [id number] [place] [address] 77280- 4981 October, Pain in left shoulder M25.512 [facility] [place] [id number] [place] [address] 66924- 3754 Sep, Shoulder pain, left M25.512 [facility] [place] [id number] [place] [address] 71110- 8293 Aug, Pain in right shoulder M25.511 and Other chronic pain G89.29 [facility] [place] [id number] [place] [address] 15295- 3883 07 Aug, 2015 Shoulder pain, right M25.511 and GERD (gastroesophageal reflux disease) K21.9 [facility] [place] [id number] [place] [address] 05683- 0124 08 Nov, 2014 [facility] [place] [id number] [place] [address] 05187- 7560 14 Sep, 2014 [facility] [place] [facility] [address] [id number] [place] [address]- 1526 Sep, [facility] [place] [facility] [address] [id number] [place] [address]- 7769 Jul, 2014 [facility] [place] [facility] [address] [id number] [place] [address]- 6920 Jul, 2014 [facility] [place] [facility] [address] [id number] [place] [address]- 9219 Jul, 2014 [facility] [place] [facility] [address] [id number] [place] [address]- 1572 Jul, 2014 [facility] [place] [facility] [address] [id number] [place] [address]- 7505 Jul, [facility] [place] [facility] [address] [id number] [place] [address]- 6505 Jul, [facility] [place] [facility] [address] [id number] [place] [address]- 2181 Jun, [facility] [place] [facility] [address] [id number] [place] [address]- 0291 Jun, [facility] [place] [facility] [address] [id number] [place] [address]- 7817 Apr, [facility] [place] [facility] [address] [id number] [place] [address]- 5310 Apr, [facility] [place] [facility] [address] [id number] [place] [address]- 9076 Apr, [facility] [place] [facility] [address] [id number] [place] [address]- 0889 Feb, [facility] [place] [facility] [address] [id number] [place] [address]- 2306 Feb, [facility] [place] [facility] [address] [id number] [place] [address]- 4839 11 Feb, 2014 [facility] [place] [facility] [address] [id number] [place] [address]- 0925 Feb, [facility] [address] [id number] [place] [address]- 5436 Aug, [facility] [place] [facility] [address] [id number] [place] [address]- 7441 Aug, [facility] [place] [facility] [address] [id number] [place] [address]- 8193 Mar, [facility] [place] [facility] [address] [id number] [place] [address]- 7078 Mar, [facility] [place] [facility] [address] [id number] [place] [address]- 6985 Mar, [facility] [place] [facility] [address] [id number] [place] [address]- 6721 Mar, [facility] [address] [id number] [place] [address]- 3050 Feb, [facility] [place] [facility] [address] [id number] [place] [address]- 8184 06 Feb, 2013 [facility] [place] [facility] [address] [id number] [place] [address]- 3694 Feb, [facility] [place] [facility] [address] [id number] [place] [address]- 6289 30 Jan, 2013 [facility] [place] [facility] [address] [id number] [place] [address]- 2898 Jan, [facility] [place] [facility] [address] [id number] [place] [address]- 7018 Dec, [facility] [place] [facility] [address] [id number] [place] [address]- 2915 15 Dec, 2012 [facility] [place] [facility] [address] [id number] [place] [address]- 6562 Nov, [facility] [place] [facility] [address] [id number] [place] [address]- 3670 Nov, [facility] [place] [facility] [address] [facility] [id number] [address]- 2046 Jan, [facility] [place] [id number] [address]- 0726 Jan, [facility] [place] [id number] [address]- 2546 Aug, [facility] [place] [id number] [address]- 1706 Jun, [facility] [place] [id number] [address]- 6025 Jun, [facility] [place] [id number] [address]- 8398 Apr, [facility] [place] [id number] [address]- 9310 Feb, IMMUNIZATIONS No Known Immunizations SOCIAL HISTORY Never Assessed REASON FOR VISIT Lab (walk-in) PLAN OF CARE Activity Details Pending Test PDM - 09 PANEL (PROFILE 1) VITAL SIGNS MEDICATIONS Unknown Medications RESULTS No Results PROCEDURES Procedure Date Ordered Result Body Site 09 PANEL (PROFILE 1) May 25, 2018 INSTRUCTIONS MEDICATIONS ADMINISTERED No Known Medications MEDICAL (GENERAL) HISTORY Type Description Date Medical History colitis Medical History right shoulder pain Medical History anup cell leukemia Medical History chemo Surgical History Appendectomy Surgical History Abscess drained and removed Hospitalization History surgery Hospitalization History dehydration Hospitalization History chest pain, pancytopenia, slenomegaly-[facility] 10/25/17
--- OUTSIDE RECORDS SUMMARY | 2018-06-13 15:41 | XMS REPORT ---
Author Author AMY HALEY Organization [facility] Address [address] [place] [address] Care Team Providers Care Insight Director Name Role Phone AMY HALEY Unavailable PROBLEMS Type Condition ICD9-CM Code ZFX43-AR Code Onset Dates Condition Status SNOMED Code Problem GERD with esophagitis K21.0 Active 137003150 Problem Morbid (severe) obesity due to excess calories E66.01 Active 49029415072485 Problem Essential hypertension I10 Active 85698155 Problem Other chronic pain G89.29 Active 51732396 Problem Gastroesophageal reflux disease with esophagitis K21.0 Active 835122745 Problem Other ulcerative colitis without complication K51.80 Active 80274227 Problem Pancytopenia D61.818 Active 647300730 Problem Temporary low platelet count D69.6 Active 076213891 Problem Body mass index (BMI) of 40.0-44.9 in adult Z68.41 Active 632459152 Problem Body mass index (BMI) of 45.0-49.9 in adult Z68.42 Active 853658668 Problem Neutropenia, unspecified type D70.9 Active 586254304 Problem Other chronic pain G89.29 Active 78126008 ALLERGIES No Information ENCOUNTERS Encounter Location Date Diagnosis [facility] [address], [place] [address] May, Pain of left leg M79.605 [facility] [address], [place] [address] Apr, Acute upper respiratory infection J06.9 [facility] [id number] [place] [address] Apr, [facility] [id number] [place] [address] 34690- 4151 Apr, [facility] [id number] [place] [address] [place] [address] Mar, Pain of left leg M79.605 and Pain in right leg M79.604 [facility] [address], [place] [address] Mar, Rash R21 [facility] [id number] [place] [address] Mar, [place] [id number] [place] [address] 70124- 0168 Mar, [place] [id number] [place] [address] 86625- 9773 Feb, Leukemia in remission, 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 [facility] [address], [place] [address] Feb, [place] eye disease of right eye H10.021 and BMI 40.0-44.9, adult Z68.41 [place] [address], [place] [address] Jan, Other chronic pain G89.29 [facility] [place] [id number] [place] [address] 86303- 0451 Dec, Other chronic pain G89.29 [place] [id number] [place] [address] 11666- 4404 Nov, Other chronic pain G89.29 [place] [id number] [place] [address] 39150- 4693 Nov, [place] [id number] [place] [address] 88661- 6083 Nov, [place] [id number] [place] [address] 38135- 2856 October, Other chronic pain G89.29 ; Pain in right knee M25.561 ; Pain in left knee M25.562 and Abdominal pain, left lower quadrant R10.32 [place] [id number] [place] [address] 62870- 2141 October, [facility] [id number] [place] [address] 72040- 3788 October, Splenomegaly R16.1 ; Neutropenia, unspecified type D70.9 and Temporary low platelet count D69.6 [facility] [id number] [place] [address]12 [address] October, [facility] [id number] [place] [address] 54051- 8653 October, Pancytopenia D61.818 [place] [address] [address]- 2762 October, [place] [id number] [place] [address] 01682- 1145 October, [place] [address] [address]191- 3089 October, Pancytopenia D61.818 [facility] [id number] [place] [address] 35686- 6868 Sep, Other chronic pain G89.29 ; Pain in left knee M25.562 ; Pain in right knee M25.561 and Abdominal pain, left lower quadrant R10.32 [place] [id number] [place] [address] 66969- 9124 Sep, Edema of left lower extremity R60.0 ; Essential hypertension I10 ; Morbid (severe) obesity due to excess calories E66.01 ; Body mass index (BMI) of 40.0-44.9 in adult Z68.41 and Hiatal hernia K44.9 [place] [id number] [place] [address] 01563- 2131 Aug, [place] [id number] [place] [address] 95844- 2668 Aug, [place] [id number] [place] [address] 01580- 2407 16 Jul, 2017 Pain in right shoulder M25.511 [place] [id number] [place] [address] 67910- 8438 05 Jul, 2017 [facility] [place] [id number] [place] [address] 49833 -0589 02 Jul, 2017 Localized edema R60.0 and BMI 40.0-44.9, adult Z68.41 [place] [address] [address]70- 5317 02 Jul, 2017 [place] [id number] [place] [address] 85496- 1776 Jun, Edema of left lower extremity R60.0 ; Essential hypertension I10 ; Family history of coronary artery disease Z82.49 ; Morbid ( severe) obesity due to excess calories E66.01 and Body mass index (BMI) of 45.0- 49.9 in adult Z68.42 [place] [address] [address]13[address] Jun, Other chronic pain G89.[address] [address] Jun, Pain in right shoulder M25.511 [place] [id number] [place] [address] 40078- 8455 Jun, Other ulcerative colitis without complication K51.80 [facility] [place] [id number] [place] [address] 36967 -4795 May, [place] [id number] [place] [address] 57403- 1835 May, GERD with esophagitis K21.0 ; Other ulcerative colitis without complication K51.80 and Other chest pain R07.89 [place] [id number] [place] [address] 67516- 5775 May, [facility] [place] [address] 96344 [address] May, Left leg swelling M79.89 [facility] [id number] [place] [address] 58377 2546 Apr, Pain in right shoulder M25.511 [facility] [id number] [place] [address] 29059 2546 Apr, Pain in right shoulder M25.511 [facility] [id number] [address] 34316 2546 Mar, [facility] [address] [facility] [id number] [place] [address] 37403 2546 Mar, Pain in right shoulder M25.511 [facility] [id number] [place] [address] 31119- 0846 Mar, [facility] [id number] [place] [address] 97402- 2176 Mar, [facility] [id number] [place] [address] 94789- 4666 Feb, Pain in right shoulder M25.511 [facility] [id number] [address]85- 1986 Jan, Pain in right shoulder M25.511 [facility] [address] [place] [address] 22701 2546 Jan, [facility] [id number] [place] [address] 53337 2546 Dec, Pain in right shoulder M25.511 [facility] [address], [place] [address] Nov, Pain in right shoulder M25.511 [facility] [id number] [place] [address] 56652 2546 Nov, Pain in right shoulder M25.511 [facility] [address], [place] [address] October, Pain in right shoulder M25.511 [facility] [id number] [address] 74643- 9958 Sep, Pain in right shoulder M25.511 [facility] [id number] [address] 10862- 9726 Aug, Pain in right shoulder M25.511 [facility] [id number] [place] [address] 52160- 2276 Jul, Pain in right shoulder M25.511 [facility] [id number] [place] [address] 97638- 6790 Jul, Pain in left shoulder M25.512 [facility] [id number] [address] 23000- 0636 Jul, Other chronic pain G89.29 [facility] [id number] [place] [address] 07761- 1658 Jul, Pain in right shoulder M25.511 ; Other chronic pain G89.29 ; Pain in left shoulder M25.512 and Gastroesophageal reflux disease with esophagitis K21.0 [facility] [id number] [place] [address] 39844- 9836 Jun, [facility] [id number] [place] [address] 77270- 3678 May, [facility] [id number] [place] [address] 68289- 8971 May, [facility] [id number] [address] 67258- 8231 15 Apr, 2016 [facility] [id number] [place] [address] 50274- 7680 Mar, [facility] [id number] [address] 26796- 8409 22 Feb, 2016 [facility] [id number] [place] [address] 91643- 1118 Feb, [facility] [address], [place] [address]- 9481 12 Feb, 2016 [facility] [id number] [address] 34113- 0477 06 Feb, 2016 [facility] [address], [place] [address] 4815 Jan, [facility] [id number] [address] 07754- 8393 Dec, Pain in left shoulder M25.512 [facility] [id number] [place] [address] 47236- 2738 Dec, Gastroesophageal reflux disease, esophagitis presence not specified K21.9 [facility] [id number] [address] 53399- 6527 Nov, Pain in left shoulder M25.512 [facility] [id number] [place] [address] 53380- 6666 October, Pain in left shoulder M25.512 [facility] [id number] [place] [address] 40737- 3417 Sep, Shoulder pain, left M25.512 [facility] [id number] [place] [address] 19226- 8925 Aug, Pain in right shoulder M25.511 and Other chronic pain G89.29 [facility] [address] [place] [address] 73954- 3222 07 Aug, 2015 Shoulder pain, right M25.511 and GERD (gastroesophageal reflux disease) K21.9 [facility] [address], [place] [address]- 8979 08 Nov, 2014 [facility] [id number] [place] [address] 22398- 5854 14 Sep, 2014 [facility] [address], [place] [address]- 9958 13 Sep, 2014 [facility] [address] [place] [address]- 1670 Jul, 2014 [facility] [place] [facility] [address] [id number] [place] [address]- 3739 Jul, 2014 [facility] [place] [facility] [address] [id number] [place] [address]- 3400 Jul, 2014 [facility] [place] [facility] [address] [id number] [place] [address]- 4127 Jul, 2014 [facility] [place] [facility] [address] [id number] [place] [address]- 6658 Jul, 2014 [facility] [place] [facility] [address] [id number] [place] [address]- 9055 Jul, [facility] [place] [facility] [address] [id number] [place] [address]- 2792 Jun, [facility] [place] [facility] [address] [id number] [place] [address]- 7188 Jun, [facility] [place] [facility] [address] [id number] [place] [address]- 2750 Apr, [facility] [place] [facility] [address] [id number] [place] [address]- 1708 Apr, [facility] [place] [facility] [address] [id number] [place] [address]- 5372 Apr, [facility] [place] [facility] [address] [id number] [place] [address]- 8614 Feb, [facility] [place] [facility] [address] [id number] [place] [address]- 8668 Feb, [facility] [place] [facility] [address] [id number] [place] [address]- 6974 Feb, [facility] [place] [facility] [address] [id number] [place] [address]- 2831 Feb, [facility] [place] [facility] [address] [id number] [place] [address]- 0947 Aug, [facility] [place] [facility] [address] [id number] [place] [address]- 4475 Aug, [facility] [place] [facility] [address] [id number] [place] [address]- 4569 Mar, [facility] [place] [facility] [address] [id number] [place] [address]- 5144 Mar, [facility] [place] [facility] [address] [id number] [place] [address]- 8553 Mar, [facility] [place] [facility] [address] [id number] [place] [address]- 9254 Mar, [facility] [place] [facility] [address] [id number] [place] [address]- 0477 Feb, [facility] [place] [facility] [address] [id number] [place] [address]- 2397 06 Feb, 2013 [facility] [place] [facility] [address] [id number] [place] [address]- 5694 Feb, [facility] [place] [facility] [address] [id number] [place] [address]- 1332 30 Jan, 2013 [facility] [place] [facility] [address] [id number] [place] [address]- 1684 Jan, [facility] [place] [facility] [address] [id number] [place] [address]- 3341 Dec, [facility] [place] [facility] [address] [id number] [address]- 5119 Dec, [facility] [place] [facility] [address] [id number] [place] [address]- 1962 Nov, [facility] [place] [facility] [address] [id number] [place] [address]- 8999 Nov, [facility] [place] [facility] [address] [id number] [place] [address]- 7295 Jan, [facility] [place] [facility] [address] [facility] [id number] [address]- 2546 Jan, [facility] [id number], [place] [address] 2546 Aug, [facility] [id number], [place] [address]- 2546 Jun, [facility] [address] [facility] [id number] [address]- 2546 Jun, [facility] [id number] [address]- 2546 Apr, [facility] [address] [facility] [id number], [place] [address]- 6276 Feb, IMMUNIZATIONS No Known Immunizations SOCIAL HISTORY Never Assessed REASON FOR VISIT Controlled Med Refill PLAN OF CARE VITAL SIGNS MEDICATIONS Medication Instructions Dosage Frequency Start Date End Date Duration Status [place] 5-325 MG Orally every 6 hrs 1 tablet as needed 6h May, 28 days Active RESULTS No Results PROCEDURES No Known procedures INSTRUCTIONS MEDICATIONS ADMINISTERED No Known Medications MEDICAL (GENERAL) HISTORY Type Description Date Medical History colitis Medical History right shoulder pain Medical History anup cell leukemia Medical History chemo Surgical History Appendectomy Surgical History Abscess drained and removed Hospitalization History surgery Hospitalization History dehydration Hospitalization History chest pain, pancytopenia, slenomegaly-[facility] 10/25/17
--- OUTSIDE RECORDS SUMMARY | 2018-06-13 15:42 | XMS REPORT ---
Author Author AMY HALEY Organization [facility] Address [address] [place] [address] Care Team Providers Care Autotransfusionist Name Role Phone AMY HALEY Unavailable PROBLEMS Type Condition ICD9-CM Code QQH80-[place] Code Onset Dates Condition Status SNOMED Code Problem GERD with esophagitis K21.0 Active 347543689 Problem Morbid (severe) obesity due to excess calories E66.01 Active 47773586055812 Problem Essential hypertension I10 Active 10424774 Problem Other chronic pain G89.29 Active 54641852 Problem Gastroesophageal reflux disease with esophagitis K21.0 Active 973131956 Problem Other ulcerative colitis without complication K51.80 Active 34255695 Problem Pancytopenia D61.818 Active 324665331 Problem Temporary low platelet count D69.6 Active 009035554 Problem Body mass index (BMI) of 40.0-44.9 in adult Z68.41 Active 107980472 Problem Body mass index (BMI) of 45.0-49.9 in adult Z68.42 Active 920108113 Problem Neutropenia, unspecified type D70.9 Active 106994420 Problem Other chronic pain G89.29 Active 71857018 ALLERGIES No Information ENCOUNTERS Encounter Location Date Diagnosis [facility] [id number] [place] [address] 82691- 9122 Apr, [facility] [id number] [place] [address] 23946- 6621 Mar, Pain of left leg M79.605 and Pain in right leg M79.604 [facility] [id number] [place] [address]0949 -7280 Mar, Rash R21 [facility] [id number] [address] Mar, [facility] [id number] [address] Mar, [facility] [id number] [place] [address] 97394- 9845 Feb, Leukemia in remission, 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 [facility] [address], [place] [address] Feb, [place]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 and BMI 40.0-44.9, adult Z68.41 [place] [id number] [address] Jan, Other chronic pain G89.29 [place] [id number] [place] [address] 33498- 5142 Dec, Other chronic pain G89.29 [place] [id number] [place] [address] 34891- 3607 Nov, Other chronic pain G89.29 [place] [id number] [place] [address] 65283- 0536 Nov, [place] [id number] [place] [address] 26443- 5907 Nov, [place] [id number] [place] [address] 24056- 8951 October, Other chronic pain G89.29 ; Pain in right knee M25.561 ; Pain in left knee M25.562 and Abdominal pain, left lower quadrant R10.32 [place] [address], [place] [address] October, [place] [id number] [place] [address] 79543- 2878 October, Splenomegaly R16.1 ; Neutropenia, unspecified type D70.9 and Temporary low platelet count D69.6 [facility] [address] [address] October, [place] [address] [place] [address] October, Pancytopenia D61.818 [place] [id number] [place] [address] 57683- 9641 October, [place] [id number] [place] [address] 60818- 3153 October, [facility] [id number] [place] [address] 54979- 7740 October, Pancytopenia D61.818 [place] [id number] [place] [address] 29360- 0922 Sep, Other chronic pain G89.29 ; Pain in left knee M25.562 ; Pain in right knee M25.561 and Abdominal pain, left lower quadrant R10.32 [place] [id number] [place] [address] 43839- 8288 Sep, Edema of left lower extremity R60.0 ; Essential hypertension I10 ; Morbid (severe) obesity due to excess calories E66.01 ; Body mass index (BMI) of 40.0-44.9 in adult Z68.41 and Hiatal hernia K44.9 [place] [id number] [place] [address] 67555- 5040 Aug, [place] [id number] [place] [address] 71051- 4417 Aug, [place] [id number] [place] [address] 27053- 2160 Jul, Pain in right shoulder M25.511 [place] [id number] [place] [address] 03259- 5718 Jul, [facility] [id number] [place] [address] 18482 -6907 Jul, Localized edema R60.0 and BMI 40.0-44.9, adult Z68.41 [place] [id number] [place] [address] 40625- 8281 02 Jul, 2017 [place] [id number] [place] [address] 87938- 5417 Jun, Edema of left lower extremity R60.0 ; Essential hypertension I10 ; Family history of coronary artery disease Z82.49 ; Morbid ( severe) obesity due to excess calories E66.01 and Body mass index (BMI) of 45.0- 49.9 in adult Z68.42 [place] [address] 08090- 4423 16 Jun, 2017 Other chronic pain G89.29 [place] [address] 63869- 7405 15 Jun, 2017 Pain in right shoulder M25.511 [place] [address] 95564- 2975 03 Jun, 2017 Other ulcerative colitis without complication K51.80 [facility] [place] [address] [address] -4[address] May, [place] [address] 93190- 7152 May, GERD with esophagitis K21.0 ; Other ulcerative colitis without complication K51.80 and Other chest pain R07.89 [place] [id number] [place] [address] 82948- 6208 May, [facility] [id number] [place] [address] 96169 -9163 04 May, 2017 Left leg swelling M79.89 [place] [address] 42857- 0002 14 Apr, 2017 Pain in right shoulder M25.511 [place] [address] 55486- 1612 14 Apr, 2017 Pain in right shoulder M25.511 [place] [address] 48164- 3293 Mar, [facility] [address], [place] [address] 4[address] Mar, Pain in right shoulder M25.511 [facility] [address], [place] [address] 2546 Mar, [facility] [id number] [address] 2546 Mar, [facility] [id number] [place] [address] 33357 2546 Feb, Pain in right shoulder M25.511 [facility] [id number] [place] [address] 67546- 7776 Jan, Pain in right shoulder M25.511 [facility] [id number] [place] [address] 07025 2546 Jan, [facility] [id number] [place] [address] 38719- 3646 Dec, Pain in right shoulder M25.511 [facility] [id number] [place] [address] 23140- 4916 Nov, Pain in right shoulder M25.511 [facility] [address] [address] 2546 Nov, Pain in right shoulder M25.511 [facility] [id number] [address] 2546 October, Pain in right shoulder M25.511 [facility] [address], [place] [address]- 4896 Sep, Pain in right shoulder M25.511 [facility] [address], [place] [address] 2546 Aug, Pain in right shoulder M25.511 [facility] [address], [place] [address]- 3066 Jul, Pain in right shoulder M25.511 [facility] [id number] [address] 2546 10 Jul, 2016 Pain in left shoulder M25.512 [facility] [id number] [place] [address] 08237 2546 10 Jul, 2016 Other chronic pain G89.29 [facility] [id number] [place] [address] 72347 2546 09 Jul, 2016 Pain in right shoulder M25.511 ; Other chronic pain G89.29 ; Pain in left shoulder M25.512 and Gastroesophageal reflux disease with esophagitis K21.0 [facility] [id number] [place] [address] 78229- 0126 Jun, [facility] [id number] [place] [address] 29119- 4182 May, [facility] [id number] [place] [address] 13629- 5073 May, [facility] [id number] [place] [address] 20935- 3464 Apr, [facility] [id number] [place] [address] 69749- 1957 Mar, [facility] [id number] [place] [address] 71030 2540 22 Feb, 2016 [facility] [id number] [place] [address] 29554 2546 13 Feb, 2016 [facility] [id number] [place] [address] 14712 2546 12 Feb, 2016 [facility] [id number] [place] [address] 62347 2546 06 Feb, 2016 [facility] [id number] [place] [address] 84600 2546 15 Jan, 2016 [facility] [id number] [place] [address] 13723- 4710 Dec, Pain in left shoulder M25.512 [facility] [id number] [place] [address] 82692- 4855 Dec, Gastroesophageal reflux disease, esophagitis presence not specified K21.9 [facility] [id number] [place] [address] 20403- 6822 Nov, Pain in left shoulder M25.512 [facility] [id number] [place] [address] 63550- 6674 October, Pain in left shoulder M25.512 [facility] [id number] [place] [address] 17096- 3814 Sep, Shoulder pain, left M25.512 [facility] [id number] [place] [address] 76154- 8806 Aug, Pain in right shoulder M25.511 and Other chronic pain G89.29 [facility] [id number] [place] [address] 20735- 4481 Aug, Shoulder pain, right M25.511 and GERD (gastroesophageal reflux disease) K21.9 [facility] [id number] [place] [address] 19665- 1338 Nov, [facility] [id number] [place] [address] 51940- 6490 Sep, [facility] [id number] [place] [address] 27494- 1605 Sep, [facility] [id number] [place] [address] 25964- 1970 Jul, [facility] [id number] [place] [address] 56477- 2505 Jul, [facility] [id number] [place] [address] 90416- 6087 Jul, [facility] [id number] [place] [address] 23061- 8176 Jul, [facility] [place] [facility] [address] [id number] [place] [address]- 1621 Jul, [facility] [place] [facility] [address] [id number] [place] [address]- 0975 Jul, [facility] [place] [facility] [address] [facility] [id number] [place] [address]- 0125 Jun, [facility] [place] [facility] [address] [id number] [place] [address]- 1267 Jun, [facility] [place] [facility] [address] [id number] [place] [address]- 9315 Apr, [facility] [place] [facility] [address] [id number] [place] [address]- 7414 Apr, [facility] [place] [facility] [address] [id number] [place] [address]- 6339 Apr, [facility] [place] [facility] [address] [id number] [place] [address]- 7245 Feb, [facility] [place] [facility] [address] [id number] [place] [address]- 3530 Feb, [facility] [place] [facility] [address] [id number] [place] [address]- 9970 Feb, [facility] [place] [facility] [address] [id number] [place] [address]- 8829 Feb, [facility] [place] [facility] [address] [id number] [address]- 8916 Aug, [facility] [place] [facility] [address] [id number] [place] [address]- 0739 Aug, [facility] [place] [facility] [address] [facility] [id number] [place] [address]- 7684 Mar, [facility] [place] [facility] [address] [facility] [id number] [place] [address]- 5171 Mar, [facility] [place] [facility] [address] [id number] [place] [address]- 2503 16 Mar, 2013 [facility] [address] [id number] [place] [address]- 8209 16 Mar, 2013 [facility] [address] [id number] [place] [address]- 7076 Feb, [facility] [address] [id number] [place] [address]- 8136 Feb, [facility] [address] [id number] [place] [address]- 4105 Feb, [facility] [address] [id number] [place] [address]- 1891 30 Jan, 2013 [facility] [address] [id number] [place] [address]- 4629 Jan, [facility] [address] [id number] [place] [address]- 6052 Dec, [facility] [address] [id number] [place] [address]- 9505 Dec, [facility] [address] [id number] [place] [address]- 9973 Nov, [facility] [address] [id number] [place] [address]- 1468 Nov, [facility] [address] [id number] [place] [address]- 8737 Jan, [facility] [address] [id number] [place] [address]- 0454 Jan, [facility] [place] [facility] [address] [id number] [place] [address]- 6459 Aug, [facility] [address] [id number] [place] [address]- 6963 Jun, [facility] [address] [id number] [place] [address]- 8812 Jun, [facility] [address] [facility] [id number] [place] [address]- 2846 Apr, [facility] [address] [facility] [id number] [place] [address]- 2406 Feb, IMMUNIZATIONS No Known Immunizations SOCIAL HISTORY Never Assessed REASON FOR VISIT Refill request PLAN OF CARE VITAL SIGNS MEDICATIONS Medication Instructions Dosage Frequency Start Date End Date Duration Status Bactrim DS 800-160 MG Orally 2 times a day 1 tablet 12h Jan, 10 day(s) Active RESULTS No Results PROCEDURES No Known procedures INSTRUCTIONS MEDICATIONS ADMINISTERED No Known Medications MEDICAL (GENERAL) HISTORY Type Description Date Medical History colitis Medical History right shoulder pain Medical History anup cell leukemia Medical History chemo Surgical History Appendectomy Surgical History Abscess drained and removed Hospitalization History surgery Hospitalization History dehydration Hospitalization History chest pain, pancytopenia, slenomegaly-[facility] 10/25/17
--- OUTSIDE RECORDS SUMMARY | 2018-06-13 15:42 | XMS REPORT ---
Author Author AMY HALEY Organization [facility] Address [address] [place] [address] Care Team Providers Care Senior Hardware Engineer Name Role Phone AMY HALEY Unavailable PROBLEMS Type Condition ICD9-CM Code ZOE84-UL Code Onset Dates Condition Status SNOMED Code Problem GERD with esophagitis K21.0 Active 238938451 Problem Morbid (severe) obesity due to excess calories E66.01 Active 64987557196242 Problem Essential hypertension I10 Active 46869185 Problem Other chronic pain G89.29 Active 67984282 Problem Gastroesophageal reflux disease with esophagitis K21.0 Active 805298023 Problem Other ulcerative colitis without complication K51.80 Active 63817413 Problem Pancytopenia D61.818 Active 011333055 Problem Temporary low platelet count D69.6 Active 572444789 Problem Body mass index (BMI) of 40.0-44.9 in adult Z68.41 Active 026229152 Problem Body mass index (BMI) of 45.0-49.9 in adult Z68.42 Active 354452442 Problem Neutropenia, unspecified type D70.9 Active 885565654 Problem Other chronic pain G89.29 Active 54000603 ALLERGIES Substance Reaction Event Type Date Status Morphine Sulfate nausea and vomiting Drug Allergy Mar, Active ENCOUNTERS Encounter Location Date Diagnosis [facility] [id number] [place] [address] 22972- 7455 Mar, Pain of left leg M79.605 and Pain in right leg M79.604 [facility] [id number] [place] [address] 25071 -9020 Mar, Rash R21 [facility] [id number] [place] [address] 88392 -8356 Mar, [facility] [id number] [place] [address] 88294- 9689 Mar, [facility] [address] [address] Feb, Leukemia in remission, 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 [facility] [address] [address] Feb, [place] eye disease of right eye H10.021 and BMI 40.0-44.9, adult Z68.41 [place] [facility] [id number] [place] [address] 94066- 1260 Jan, Other chronic pain G89.29 [place] [id number] [place] [address] 68098- 2999 Dec, Other chronic pain G89.29 [place] [id number] [place] [address] 16495- 7770 Nov, Other chronic pain G89.29 [place] [id number] [place] [address] 16093- 5184 Nov, [place] [id number] [place] [address] 75183- 8831 Nov, [place] [facility] [id number] [place] [address] 66420- 4568 October, Other chronic pain G89.29 ; Pain in right knee M25.561 ; Pain in left knee M25.562 and Abdominal pain, left lower quadrant R10.32 [place] [id number] [place] [address] 78419- 5561 October, [place] [id number] [place] [address] 73019- 7961 October, Splenomegaly R16.1 ; Neutropenia, unspecified type D70.9 and Temporary low platelet count D69.6 [facility] [id number] [place] [address] 19657 -7597 October, [place] [id number] [place] [address] 14287- 6127 October, Pancytopenia D61.818 [place] [facility] [id number] [place] [address] 35655- 4101 October, [place] [id number] [place] [address] 27500- 8620 October, [facility] [id number] [place] [address] 55604- 4772 October, Pancytopenia D61.818 [place] [id number] [place] [address] 13398- 2215 Sep, Other chronic pain G89.29 ; Pain in left knee M25.562 ; Pain in right knee M25.561 and Abdominal pain, left lower quadrant R10.32 [place] [id number] [place] [address] 85887- 4169 Sep, Edema of left lower extremity R60.0 ; Essential hypertension I10 ; Morbid (severe) obesity due to excess calories E66.01 ; Body mass index (BMI) of 40.0-44.9 in adult Z68.41 and Hiatal hernia K44.9 [place] [id number] [place] [address] 66646- 4806 Aug, [place] [id number] [place] [address] 25771- 4680 Aug, [facility] [id number] [place] [address] 93289- 4172 Jul, Pain in right shoulder M25.511 [place] [id number] [place] [address] 49093- 6563 Jul, [facility] [id number] [place] [address] 97735 -1554 Jul, Localized edema R60.0 and BMI 40.0-44.9, adult Z68.41 [place] [id number] [place] [address] 45173- 5318 Jul, [place] [id number] [place] [address] 60830- 6997 Jun, Edema of left lower extremity R60.0 ; Essential hypertension I10 ; Family history of coronary artery disease Z82.49 ; Morbid ( severe) obesity due to excess calories E66.01 and Body mass index (BMI) of 45.0- 49.9 in adult Z68.42 [place] [address] 16568- 9645 16 Jun, 2017 Other chronic pain G89.29 [place] [address] 36585- 4344 Jun, Pain in right shoulder M25.511 [place] [id number] [place] [address] 73472- 1364 Jun, Other ulcerative colitis without complication K51.80 [facility] [place] [address] 41069 -3302 May, [place] [address] 98355- 2897 May, GERD with esophagitis K21.0 ; Other ulcerative colitis without complication K51.80 and Other chest pain R07.89 [place] [id number] [place] [address] 27056- 5257 May, [facility] [place] [id number] [place] [address] 47890 -9391 May, Left leg swelling M79.89 [place] [address] 52981- 2443 14 Apr, 2017 Pain in right shoulder M25.511 [place] [address] 54972- 3907 Apr, Pain in right shoulder M25.511 [place] [id number] [place] [address] 87167- 3217 Mar, [place] [address] [address] 0906 Mar, Pain in right shoulder M25.511 [facility] [address] [address] 0[address] Mar, [facility] [address] [address] 9876 Mar, [facility] [id number] [place] [address] 08027- 5566 Feb, Pain in right shoulder M25.511 [facility] [address] [facility] [id number] [address] Jan, Pain in right shoulder M25.511 [facility] [address] [address] 2546 Jan, [facility] [id number] [place] [address] 86779- 1166 Dec, Pain in right shoulder M25.511 [facility] [address] [address] 7076 Nov, Pain in right shoulder M25.511 [facility] [address], [place] [address]- 9236 Nov, Pain in right shoulder M25.511 [facility] [address] [address] 5756 October, Pain in right shoulder M25.511 [facility] [address] [address] 3376 Sep, Pain in right shoulder M25.511 [facility] [address] [address] 2546 Aug, Pain in right shoulder M25.511 [facility] [address] [address]- 5926 Jul, Pain in right shoulder M25.511 [facility] [id number] [address] 2546 10 Jul, 2016 Pain in left shoulder M25.512 [facility] [id number] [place] [address] 10432 2546 10 Jul, 2016 Other chronic pain G89.29 [facility] [address] [place] [address] 99714 2546 09 Jul, 2016 Pain in right shoulder M25.511 ; Other chronic pain G89.29 ; Pain in left shoulder M25.512 and Gastroesophageal reflux disease with esophagitis K21.0 [facility] [id number] [place] [address] 77553- 2499 Jun, [facility] [id number] [place] [address] 66431- 1154 May, [facility] [id number] [place] [address] 99955- 9385 May, [facility] [id number] [place] [address] 29682- 7338 Apr, [facility] [id number] [place] [address] 86045- 2136 Mar, [facility] [address], [place] [address] 2548 22 Feb, 2016 [facility] [address], [place] [address] 2546 Feb, [facility] [address], [place] [address] 2546 12 Feb, 2016 [facility] [id number] [place] [address] 23142 2546 06 Feb, 2016 [facility] [id number] [place] [address] 97338 2546 15 Jan, 2016 [facility] [address], [place] [address] 2542 Dec, Pain in left shoulder M25.512 [facility] [id number] [place] [address] 82532- 1335 Dec, Gastroesophageal reflux disease, esophagitis presence not specified K21.9 [facility] [id number] [place] [address] 72841- 0321 Nov, Pain in left shoulder M25.512 [facility] [id number] [place] [address] 85539- 6895 October, Pain in left shoulder M25.512 [facility] [id number] [place] [address] 83680- 1187 Sep, Shoulder pain, left M25.512 [facility] [id number] [place] [address] 23600- 2485 Aug, Pain in right shoulder M25.511 and Other chronic pain G89.29 [facility] [id number] [place] [address] 06863- 8923 Aug, Shoulder pain, right M25.511 and GERD (gastroesophageal reflux disease) K21.9 [facility] [id number] [place] [address] 42780- 0923 Nov, [facility] [id number] [place] [address] 11932- 7596 Sep, [facility] [id number] [place] [address] 40229- 6714 Sep, [facility] [id number] [place] [address] 33213- 4050 Jul, [facility] [id number] [place] [address] 60872- 4106 Jul, [facility] [id number] [place] [address] 32263- 1011 Jul, [facility] [id number] [place] [address] 64122- 4387 Jul, [facility] [id number] [place] [address]- 5528 Jul, [facility] [place] [facility] [address] [id number] [place] [address]- 0481 Jul, [facility] [place] [facility] [address] [id number] [place] [address]- 1026 Jun, [facility] [place] [facility] [address] [id number] [place] [address]- 9653 Jun, [facility] [place] [facility] [address] [id number] [place] [address]- 7376 Apr, [facility] [place] [facility] [address] [id number] [place] [address]- 0484 Apr, [facility] [place] [facility] [address] [id number] [place] [address]- 9422 Apr, [facility] [place] [facility] [address] [id number] [place] [address]- 6054 Feb, [facility] [place] [facility] [address] [id number] [place] [address]- 4389 Feb, [facility] [place] [facility] [address] [id number] [place] [address]- 7864 Feb, [facility] [place] [facility] [address] [id number] [place] [address]- 7135 Feb, [facility] [place] [facility] [address] [id number] [place] [address]- 4881 Aug, [facility] [place] [facility] [address] [id number] [place] [address]- 4264 Aug, [facility] [place] [facility] [address] [id number] [place] 7521 Mar, [facility] [place] [facility] [address] [id number] [place] 6339 Mar, [facility] [place] [facility] [address] [id number] [place] [address]- 1986 16 Mar, 2013 [facility] [place] [facility] [address] [id number] [place] [address]- 8865 16 Mar, 2013 [facility] [place] [facility] [address] [id number] [place] [address]- 6200 09 Feb, 2013 [facility] [place] [facility] [address] [id number] [place] [address]- 7338 Feb, [facility] [place] [facility] [address] [id number] [place] [address]- 6271 Feb, [facility] [place] [facility] [address] [id number] [place] [address]- 0136 30 Jan, 2013 [facility] [place] [facility] [address] [id number] [place] [address]- 4205 Jan, [facility] [place] [facility] [address] [id number] [place] [address]- 7356 Dec, [facility] [place] [facility] [address] [id number] [place] [address]- 8535 Dec, [facility] [place] [facility] [address] [id number] [place] [address]- 6404 Nov, [facility] [place] [facility] [address] [id number] [place] [address]- 8694 Nov, [facility] [place] [facility] [address] [id number] [place] [address]- 2554 Jan, [facility] [place] [facility] [address] [id number] [address]- 5691 Jan, [facility] [place] [facility] [address] [id number] [place] [address]- 2396 Aug, [facility] [place] [facility] [address] [id number] [place] [address]- 9090 Jun, [facility] [place] [facility] [address] [id number] [place] [address]- 4242 Jun, [facility] [place] [facility] [address] [facility] [id number] [place] [address]- 2546 Apr, [facility] [address] [facility] [id number] [place] [address]- 5670 Feb, IMMUNIZATIONS No Known Immunizations SOCIAL HISTORY Never Assessed REASON FOR VISIT Pain management (chronic) PLAN OF CARE VITAL SIGNS Height 69 in 2018-04-20 Weight 259.8 lbs 2018-04-20 Temperature 97.7 degrees Fahrenheit 2018-04-20 Heart Rate 78 bpm 2018-04-20 Respiratory Rate 20 2018-04-20 Oximetry 98 % 2018-04-20 BMI 38.36 kg/m2 2018-04-20 Blood pressure systolic 128 mmHg 2018-04-20 Blood pressure diastolic 70 mmHg 2018-04-20 MEDICATIONS Medication Instructions Dosage Frequency Start Date End Date Duration Status Protonix 40 mg Orally Once a day 1 tablet 24h Feb, 30 day(s) Active [place] 5-325 MG Orally every 6 hrs 1 tablet as needed 6h Mar, 28 days Active Tylenol Extra Strength 500 mg Orally every 6 hrs 2 tablets as needed 6h Active Mens Daily Formula/Lycopene - Active RESULTS No Results PROCEDURES No Known procedures INSTRUCTIONS MEDICATIONS ADMINISTERED No Known Medications MEDICAL (GENERAL) HISTORY Type Description Date Medical History colitis Medical History right shoulder pain Medical History anup cell leukemia Medical History chemo Surgical History Appendectomy Surgical History Abscess drained and removed Hospitalization History surgery Hospitalization History dehydration Hospitalization History chest pain, pancytopenia, slenomegaly-[facility] 10/25/17
--- OUTSIDE RECORDS SUMMARY | 2018-06-13 15:42 | XMS REPORT ---
Author Author NHI RAMON 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 Name Role Phone NHI RAMON Unavailable PROBLEMS Type Condition ICD9-CM Code ABB35-RZ Code Onset Dates Condition Status SNOMED Code Problem GERD with esophagitis K21.0 Active 658146170 Problem Morbid (severe) obesity due to excess calories E66.01 Active 61666686174208 Problem Essential hypertension I10 Active 54284065 Problem Other chronic pain G89.29 Active 72122810 Problem Gastroesophageal reflux disease with esophagitis K21.0 Active 000693781 Problem Other ulcerative colitis without complication K51.80 Active 82399836 Problem Pancytopenia D61.818 Active 714911139 Problem Temporary low platelet count D69.6 Active 009697073 Problem Body mass index (BMI) of 40.0-44.9 in adult Z68.41 Active 084420737 Problem Body mass index (BMI) of 45.0-49.9 in adult Z68.42 Active 417110966 Problem Neutropenia, unspecified type D70.9 Active 332015595 Problem Other chronic pain G89.29 Active 99273138 ALLERGIES No Information ENCOUNTERS Encounter Location Date Diagnosis [facility] [id number] [place] [address]58 [address]308 Apr, Acute upper respiratory infection J06.9 [facility] [address] [id number] [address] Apr, [facility] [id number] [place] [address] 57911- 5267 Apr, [facility] [id number] [address] Mar, Pain of left leg M79.605 and Pain in right leg M79.604 [facility] [address] [address] Mar, Rash R21 [facility] [id number] [place] [address] 25163 -9033 Mar, [facility] [id number] [place] [address] 14521- 1346 Mar, [facility] [id number] [place] [address] 77679- 5711 Feb, Leukemia in remission, 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 [facility] [id number] [place] [address] 32490 -7242 Feb, 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 and BMI 40.0-44.9, adult Z68.41 [place] [id number] [place] [address] 45843- 5891 Jan, Other chronic pain G89.29 [facility] [id number] [place] [address] 96728- 3634 Dec, Other chronic pain G89.29 [place] [id number] [place] [address] 23125- 8748 Nov, Other chronic pain G89.29 [place] [id number] [place] [address] 53678- 8787 Nov, [facility] [id number] [place] [address] 07716- 9567 Nov, [facility] [address] [place] [address] 41141- 2283 October, Other chronic pain G89.29 ; Pain in right knee M25.561 ; Pain in left knee M25.562 and Abdominal pain, left lower quadrant R10.32 [facility] [id number] [address] October, [facility] [id number] [place] [address] 56602- 3637 October, Splenomegaly R16.1 ; Neutropenia, unspecified type D70.9 and Temporary low platelet count D69.6 [facility] [id number] [place] [address] 16259 -1118 October, [facility] [id number] [place] [address] 28299- 5640 October, Pancytopenia D61.818 [facility] [id number] [place] [address] 64883- 9629 October, [place] [id number] [place] [address] 03411- 3196 October, [facility] [id number] [place] [address] 50469- 3532 October, Pancytopenia D61.818 [place] [id number] [place] [address] 08650- 6903 Sep, Other chronic pain G89.29 ; Pain in left knee M25.562 ; Pain in right knee M25.561 and Abdominal pain, left lower quadrant R10.32 [place] [id number] [place] [address] 01261- 3785 Sep, Edema of left lower extremity R60.0 ; Essential hypertension I10 ; Morbid (severe) obesity due to excess calories E66.01 ; Body mass index (BMI) of 40.0-44.9 in adult Z68.41 and Hiatal hernia K44.9 [facility] [address] [place] [address] 30756- 4663 Aug, [place] [address] 14734- 4747 Aug, [place] [id number] [place] [address] 05392- 9888 Jul, Pain in right shoulder M25.511 [place] [id number] [place] [address] 91222- 4586 05 Jul, 2017 [facility] [place] [id number] [place] [address] 69398 -9316 02 Jul, 2017 Localized edema R60.0 and BMI 40.0-44.9, adult Z68.41 [place] [address] 73196- 8373 Jul, [place] [address] 07057- 6388 Jun, Edema of left lower extremity R60.0 ; Essential hypertension I10 ; Family history of coronary artery disease Z82.49 ; Morbid ( severe) obesity due to excess calories E66.01 and Body mass index (BMI) of 45.0- 49.9 in adult Z68.42 [place] [address] 51433- 5436 16 Jun, 2017 Other chronic pain G89.29 [place] [address] 57796- 7681 Jun, Pain in right shoulder M25.511 [place] [address] 84751- 6345 Jun, Other ulcerative colitis without complication K51.80 [facility] [place] [id number] [place] [address] 97590 -3625 May, [place] [address] 86990- 1249 May, GERD with esophagitis K21.0 ; Other ulcerative colitis without complication K51.80 and Other chest pain R07.89 [place] [address] 28549- 4682 May, [facility] [place] [address] 35289 -6320 May, Left leg swelling M79.89 [place] [address] 75011- 9173 Apr, Pain in right shoulder M25.511 [facility] [address] [address] Apr, Pain in right shoulder M25.511 [facility] [address] [facility] [id number] [address] Mar, [facility] [id number] [place] [address] 75224- 7716 Mar, Pain in right shoulder M25.511 [facility] [address] [facility] [id number] [address] 0376 Mar, [facility] [id number] [place] [address] 21638- 7646 Mar, [facility] [id number] [place] [address] 54240- 5596 Feb, Pain in right shoulder M25.511 [facility] [address] [place] [address] 33933- 7567 Jan, Pain in right shoulder M25.511 [facility] [id number] [address] Jan, [facility] [id number] [address] 4966 Dec, Pain in right shoulder M25.511 [facility] [id number] [place] [address] 80569- 9226 Nov, Pain in right shoulder M25.511 [facility] [address] [address]- 4036 Nov, Pain in right shoulder M25.511 [facility] [address] [address]- 5166 October, Pain in right shoulder M25.511 [facility] [address] [address]- 4076 Sep, Pain in right shoulder M25.511 [facility] [address] [address]- 3039 Aug, Pain in right shoulder M25.511 [facility] [address] [place] [address] 82316 2546 Jul, Pain in right shoulder M25.511 [facility] [id number] [place] [address] 58794- 1176 Jul, Pain in left shoulder M25.512 [facility] [address] [address]- 5666 Jul, Other chronic pain G89.29 [facility] [id number] [place] [address] 67588- 9634 Jul, Pain in right shoulder M25.511 ; Other chronic pain G89.29 ; Pain in left shoulder M25.512 and Gastroesophageal reflux disease with esophagitis K21.0 [facility] [address] [address]- 1197 Jun, [facility] [address] [place] [address] 28510- 8407 May, [facility] [address] [address]- 2548 May, [facility] [address] [address]- 2340 15 Apr, 2016 [facility] [address] [address]- 0286 Mar, [facility] [address] [address]- 7767 22 Feb, 2016 [facility] [address] [place] [address] 64347 2546 13 Feb, 2016 [facility] [address] [address]- 6733 12 Feb, 2016 [facility] [id number] [place] [address] 73198- 6491 Feb, [facility] [id number] [place] [address] 97810- 4333 Jan, [facility] [id number] [place] [address] 54487- 9456 Dec, Pain in left shoulder M25.512 [facility] [id number] [place] [address] 49782- 8055 Dec, Gastroesophageal reflux disease, esophagitis presence not specified K21.9 [facility] [id number] [place] [address] 49351- 5266 Nov, Pain in left shoulder M25.512 [facility] [id number] [place] [address] 18125- 4276 October, Pain in left shoulder M25.512 [facility] [id number] [place] [address] 53511- 3190 Sep, Shoulder pain, left M25.512 [facility] [id number] [place] [address] 07984- 0057 Aug, Pain in right shoulder M25.511 and Other chronic pain G89.29 [facility] [address] [place] [address] 05082- 2828 Aug, Shoulder pain, right M25.511 and GERD (gastroesophageal reflux disease) K21.9 [facility] [address] [place] [address] 05092- 7066 Nov, [facility] [id number] [place] [address] 23126- 9926 Sep, [facility] [id number] [place] [address] 68669- 2188 Sep, [facility] [id number] [place] [address] 34988- 3049 Jul, [facility] [id number] [address]- 0989 Jul, 2014 [facility] [place] [facility] [address] [id number] [place] [address] Jul, 2014 [facility] [place] [facility] [address] [id number] [place] [address]- 5406 Jul, 2014 [facility] [place] [facility] [address] [id number] [place] [address]- 2336 Jul, 2014 [facility] [place] [facility] [address] [id number] [place] [address]- 0173 Jul, [facility] [place] [facility] [address] [id number] [place] [address]- 6549 Jun, [facility] [place] [facility] [address] [id number] [place] [address]- 3875 Jun, [facility] [place] [facility] [address] [id number] [place] [address]- 5284 Apr, [facility] [place] [facility] [address] [id number] [place] [address]- 2635 Apr, [facility] [place] [facility] [address] [id number] [place] [address]- 9202 Apr, [facility] [place] [facility] [address] [id number] [place] [address]- 8050 12 Feb, 2014 [facility] [place] [facility] [address] [id number] [place] [address]- 4841 12 Feb, 2014 [facility] [place] [facility] [address] [id number] [place] [address]- 2541 Feb, [facility] [place] [facility] [address] [id number] [place] [address]- 2546 Feb, [facility] [place] [facility] [address] [id number] [place] [address]- 2546 Aug, [facility] [place] [facility] [address] [id number] [place] [address]- 9604 Aug, [facility] [place] [facility] [address] [id number] [place] [address]- 2400 Mar, [facility] [place] [facility] [address] [id number] [place] [address]- 9603 Mar, [facility] [place] [facility] [address] [id number] [place] [address]- 7744 Mar, [facility] [place] [facility] [address] [id number] [place] [address]- 1996 Mar, [facility] [place] [facility] [address] [id number] [place] [address]- 8476 Feb, [facility] [place] [facility] [address] [id number] [place] [address]- 9763 Feb, [facility] [place] [facility] [address] [id number] [place] [address]- 6105 Feb, [facility] [place] [facility] [address] [id number] [place] [address]- 6937 30 Jan, 2013 [facility] [place] [facility] [address] [id number] [place] [address]- 4717 Jan, [facility] [place] [facility] [address] [id number] [place] [address]- 4953 Dec, [facility] [place] [facility] [address] [id number] [place] [address]- 1605 Dec, [facility] [place] [facility] [address] [id number] [place] [address]- 8966 Nov, [facility] [place] [facility] [address] [id number] [place] [address]- 4441 Nov, [facility] [place] [facility] [address] [id number] [place] [address]- 1023 15 Jan, 2012 [facility] [place] [facility] [address] [id number] [place] [address]- 6997 Jan, [facility] [place] [facility] [address] [facility] [id number] [address]- 2546 Aug, [facility] [address] [facility] [id number] [address]- 9306 Jun, [facility] [address] [facility] [id number] [place] [address]- 2546 Jun, [facility] [address] [facility] [id number] [address] 2546 Apr, [facility] [address] [facility] [id number] [address] 2546 Feb, IMMUNIZATIONS No Known Immunizations SOCIAL HISTORY Never Assessed REASON FOR VISIT cough/congestion for a little over a month. pt has no copay...will go ahead et see him in the ORC per this RN. [email or web address] PLAN OF CARE VITAL SIGNS Height 69 in 2018-05-14 Weight 250.0 lbs 2018-05-14 Temperature 97.9 degrees Fahrenheit 2018-05-14 Heart Rate 80 bpm 2018-05-14 Respiratory Rate 20 2018-05-14 BMI 36.91 kg/m2 2018-05-14 Blood pressure systolic 126 mmHg 2018-05-14 Blood pressure diastolic 76 mmHg 2018-05-14 MEDICATIONS Medication Instructions Dosage Frequency Start Date End Date Duration Status Tylenol Extra Strength 500 mg Orally every 6 hrs 2 tablets as needed 6h Active Bactrim DS 800-160 MG Orally 2 times a day 1 tablet 12h Jan, 10 day(s) Active Penhook 5-325 MG Orally every 6 hrs 1 tablet as needed 6h Mar, 28 days Active Protonix 40 mg Orally Once a day 1 tablet 24h Feb, 30 day(s) Active Mens Daily Formula/Lycopene - Active RESULTS No Results PROCEDURES No Known procedures INSTRUCTIONS MEDICATIONS ADMINISTERED No Known Medications MEDICAL (GENERAL) HISTORY Type Description Date Medical History colitis Medical History right shoulder pain Medical History anup cell leukemia Medical History chemo Surgical History Appendectomy Surgical History Abscess drained and removed Hospitalization History surgery Hospitalization History dehydration Hospitalization History chest pain, pancytopenia, slenomegaly-[facility] 10/25/17
--- OUTSIDE RECORDS SUMMARY | 2018-06-13 15:43 | XMS REPORT ---
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 Name Role Phone ZOEY OROZCO Unavailable PROBLEMS Type Condition ICD9-CM Code PUI54-PD Code Onset Dates Condition Status SNOMED Code Problem GERD with esophagitis K21.0 Active 799705269 Problem Morbid (severe) obesity due to excess calories E66.01 Active 05081956379767 Problem Essential hypertension I10 Active 01009297 Problem Other chronic pain G89.29 Active 20229641 Problem Gastroesophageal reflux disease with esophagitis K21.0 Active 338138775 Problem Other ulcerative colitis without complication K51.80 Active 56920093 Problem Pancytopenia D61.818 Active 419845407 Problem Temporary low platelet count D69.6 Active 284696763 Problem Body mass index (BMI) of 40.0-44.9 in adult Z68.41 Active 538013894 Problem Body mass index (BMI) of 45.0-49.9 in adult Z68.42 Active 596654125 Problem Neutropenia, unspecified type D70.9 Active 008969882 Problem Other chronic pain G89.29 Active 61617664 ALLERGIES Substance Reaction Event Type Date Status Morphine Sulfate nausea and vomiting Drug Allergy Feb, Active ENCOUNTERS Encounter Location Date Diagnosis [facility] [id number] [place] [address] 51971- 7029 Feb, Leukemia in remission, 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 [facility]ALK IN [facility] [id number] [place] [address] 10682 -5161 Feb, [place] eye disease of right eye H10.021 and BMI 40.0-44.9, adult Z68.41 [facility] [id number] [address] 7687 Jan, Other chronic pain G89.29 [facility] [address] [address] 2228 Dec, Other chronic pain G89.29 [facility] [id number] [place] [address] 01563- 8591 Nov, Other chronic pain G89.29 [facility] [id number] [place] [address] 10530- 1878 Nov, [facility] [id number] [place] [address] 22774- 9166 Nov, [facility] [id number] [place] [address] 86232- 7945 October, Other chronic pain G89.29 ; Pain in right knee M25.561 ; Pain in left knee M25.562 and Abdominal pain, left lower quadrant R10.32 [facility] [id number] [place] [address] 17086- 0160 October, [facility] [id number] [place] [address] 53924- 4877 October, Splenomegaly R16.1 ; Neutropenia, unspecified type D70.9 and Temporary low platelet count D69.6 [facility] IN [facility] [id number] [place] [address] 45494 -0101 October, [facility] [id number] [place] [address] 27544- 7552 October, Pancytopenia D61.818 [facility] [id number] [place] [address] 92955- 8800 October, [facility] [id number] [place] [address] 15697- 7652 October, [facility] [id number] [place] [address] 09487- 5277 October, Pancytopenia D61.818 [facility] [id number] [place] [address] 91348- 3814 Sep, Other chronic pain G89.29 ; Pain in left knee M25.562 ; Pain in right knee M25.561 and Abdominal pain, left lower quadrant R10.32 [facility] [id number] [place] [address] 79958- 6278 Sep, Edema of left lower extremity R60.0 ; Essential hypertension I10 ; Morbid (severe) obesity due to excess calories E66.01 ; Body mass index (BMI) of 40.0-44.9 in adult Z68.41 and Hiatal hernia K44.9 [facility] [id number] [place] [address] 56230- 0677 Aug, [place] [address] [address]39- 8253 Aug, [place] [address] 43945- 1486 Jul, Pain in right shoulder M25.511 [facility] [id number] [place] [address] 97349- 7485 Jul, [facility] WALK IN [facility] [id number] [place] [address] 15144 -8991 02 Jul, 2017 Localized edema R60.0 and BMI 40.0-44.9, adult Z68.41 [facility] [facility] [id number] [place] [address] 26789- 2138 Jul, [facility] [address] 28560- 2163 Jun, Edema of left lower extremity R60.0 ; Essential hypertension I10 ; Family history of coronary artery disease Z82.49 ; Morbid ( severe) obesity due to excess calories E66.01 and Body mass index (BMI) of 45.0- 49.9 in adult Z68.42 [facility] [id number] [place] [address] 35218- 8159 Jun, Other chronic pain G89.29 [facility] [facility] [id number] [place] [address] 83854- 1363 Jun, Pain in right shoulder M25.511 [facility] [id number] [place] [address] 84432- 3037 Jun, Other ulcerative colitis without complication K51.80 [facility] [id number] [place] [address] 12836 -3793 May, [facility] [id number] [place] [address] 21748- 1106 May, GERD with esophagitis K21.0 ; Other ulcerative colitis without complication K51.80 and Other chest pain R07.89 [facility] [id number] [place] [address] 17622- 6116 May, [facility] [id number] [place] [address] 56065 -5859 May, Left leg swelling M79.89 [facility] [id number] [place] [address] 50302- 3503 Apr, Pain in right shoulder M25.511 [facility] [id number] [place] [address] 97464- 4474 Apr, Pain in right shoulder M25.511 [facility] [id number] [place] [address] 07014- 5673 Mar, [facility] [id number] [place] [address] 08939- 2459 Mar, Pain in right shoulder M25.511 [facility] [id number] [place] [address] 49850- 7164 Mar, [facility] [id number] [place] [address] 93648- 7866 Mar, [facility] [id number] [place] [address] 66512- 5822 Feb, Pain in right shoulder M25.511 [facility] [id number] [place] [address] 82256- 4202 Jan, Pain in right shoulder M25.511 [facility] [id number] [place] [address] 46726- 2728 Jan, [facility] [id number] [place] [address] 88763- 8493 Dec, Pain in right shoulder M25.511 [facility] [id number] [place] [address] 43836- 8337 Nov, Pain in right shoulder M25.511 [facility] [id number] [place] [address] 92519- 9492 Nov, Pain in right shoulder M25.511 [facility] [id number] [place] [address] 24692- 5766 October, Pain in right shoulder M25.511 [facility] [id number] [place] [address] 52377- 6188 Sep, Pain in right shoulder M25.511 [facility] [id number] [place] [address] 50700- 2879 Aug, Pain in right shoulder M25.511 [facility] [id number] [place] [address] 68021- 4715 Jul, Pain in right shoulder M25.511 [facility] [id number] [place] [address] 57105- 0620 Jul, Pain in left shoulder M25.512 [facility] [id number] [place] [address] 64924- 5191 Jul, Other chronic pain G89.29 [facility] [id number] [place] [address] 89290- 9972 Jul, Pain in right shoulder M25.511 ; Other chronic pain G89.29 ; Pain in left shoulder M25.512 and Gastroesophageal reflux disease with esophagitis K21.0 [facility] [address] [address]- 2136 Jun, [facility] [address] [address]- 6211 May, [facility] [address], [place] [address]- 1397 May, [facility] [id number] [place] [address] 45773- 5837 Apr, [facility] [address] [facility] [id number] [place] [address]- 4855 Mar, [facility] [id number] [place] [address] 07213- 2367 22 Feb, 2016 [facility] [id number] [place] [address] 65216- 7838 Feb, [facility] [id number] [place] [address] 65635- 4835 Feb, [facility] [id number] [place] [address] 66275- 1148 Feb, [facility] [address] [address]- 8678 Jan, [facility] [address] [address]- 5163 Dec, Pain in left shoulder M25.512 [facility] [id number] [place] [address] 97477- 1440 Dec, Gastroesophageal reflux disease, esophagitis presence not specified K21.9 [facility] [address] [address]- 1691 Nov, Pain in left shoulder M25.512 [facility] [address] [address]- 8310 October, Pain in left shoulder M25.512 [facility] [id number] [place] [address] 70516- 5318 Sep, Shoulder pain, left M25.512 [facility] [id number] [place] [address] 71938- 3214 29 Aug, 2015 Pain in right shoulder M25.511 and Other chronic pain G89.29 [facility] [id number] [place] [address] 83130 2546 07 Aug, 2015 Shoulder pain, right M25.511 and GERD (gastroesophageal reflux disease) K21.9 [facility] [id number] [place] [address] 96225- 7413 08 Nov, 2014 [facility] [id number] [place] [address] 62529- 6487 Sep, [facility] [id number] [place] [address] 61070- 9312 Sep, [facility] [id number] [place] [address] 43159- 7313 Jul, [facility] [id number] [place] [address] 88104- 5699 Jul, [facility] [id number] [place] [address] 68220- 6452 Jul, [facility] [address] [address]- 3611 Jul, [facility] [id number] [place] [address] 53095- 4844 Jul, [facility] [id number] [place] [address] 71039- 7855 Jul, [facility] [id number] [place] [address] 105115- 7802 Jun, [facility] [address] 1636 Jun, [facility] [id number] [place] [address] 42444- 2184 Apr, [facility] [place] [facility] [address] [id number] [place] [address]- 9105 Apr, [facility] [place] [facility] [address] [id number] [place] [address]- 9739 Apr, [facility] [place] [facility] [address] [id number] [place] [address]- 5445 Feb, [facility] [place] [facility] [address] [id number] [place] [address]- 2757 Feb, [facility] [place] [facility] [address] [id number] [place] [address]- 1788 Feb, [facility] [place] [facility] [address] [id number] [place] [address]- 9556 Feb, [facility] [place] [facility] [address] [id number] [place] [address]- 7253 Aug, [facility] [place] [facility] [address] [id number] [place] [address]- 8279 Aug, [facility] [place] [facility] [address] [id number] [place] [address]- 1984 Mar, [facility] [place] [facility] [address] [id number] [place] [address]- 4256 Mar, [facility] [place] [facility] [address] [id number] [address]- 3095 16 Mar, 2013 [facility] [place] [facility] [address] [id number] [address]- 8720 16 Mar, 2013 [facility] [place] [facility] [address] [id number] [place] [address]- 4233 09 Feb, 2013 [facility] [place] [facility] [address] [id number] [address]- 3771 06 Feb, 2013 [facility] [place] [facility] [address] [id number] [place]- 1741 Feb, [facility] [place] [facility] [address] [address]- 9476 Jan, [facility] [address], [place] [address]- 8449 Jan, [facility] [address] [address]- 6486 Dec, [facility] [address] [address]- 4065 Dec, [facility] [address] [address]- 1386 Nov, [facility] [address], [place] [address]- 3787 Nov, [facility] [address], [place] [address]- 8922 Jan, [facility] [address], [place] [address]- 1867 Jan, [facility] [address] [address]- 6013 Aug, [facility] [address], [place] [address]- 9760 Jun, [facility] [address] [address]- 9406 Jun, [facility] [address] [address]- 1437 Apr, [facility] [id number], [place] [address]- 8406 Feb, IMMUNIZATIONS No Known Immunizations SOCIAL HISTORY Never Assessed REASON FOR VISIT swollen et red right eye for a few hour now. denies any itching et or burning. joan, pt just finished chemo for leukemia. PLAN OF CARE Activity Details Follow Up 03/02 antonio Chisholm Reason:hypertension VITAL SIGNS Height 69 in 2018-02-24 Weight 271.2 lbs 2018-02-24 Temperature 97.8 degrees Fahrenheit 2018-02-24 Heart Rate 88 bpm 2018-02-24 Respiratory Rate 20 2018-02-24 BMI 40.04 kg/m2 2018-02-24 Blood pressure systolic 126 mmHg 2018-02-24 Blood pressure diastolic 78 mmHg 2018-02-24 MEDICATIONS Medication Instructions Dosage Frequency Start Date End Date Duration Status [place] 5-325 MG Orally every 6 hrs 1 tablet as needed 6h Jan, 28 days Active Gentamicin Sulfate 0.3 % Ophthalmic every 4 hrs 1 drop into affected eye 4h Feb, 05 days Active Mens Daily Formula/Lycopene - Active Tylenol Extra Strength 500 mg Orally every 6 hrs 2 tablets as needed 6h Active RESULTS No Results PROCEDURES No Known procedures INSTRUCTIONS MEDICATIONS ADMINISTERED No Known Medications MEDICAL (GENERAL) HISTORY Type Description Date Medical History colitis Medical History right shoulder pain Medical History anup cell leukemia Medical History chemo Surgical History Appendectomy Surgical History Abscess drained and removed Hospitalization History surgery Hospitalization History dehydration Hospitalization History chest pain, pancytopenia, slenomegaly-[facility] 10/25/17
--- OUTSIDE RECORDS SUMMARY | 2018-06-13 15:43 | XMS REPORT ---
Author Author AMY HALEY Organization [facility] Address [address] [place] [address] Care Team Providers Care Log Sorter Name Role Phone AMY HALEY Unavailable PROBLEMS Type Condition ICD9-CM Code RZD30-PF Code Onset Dates Condition Status SNOMED Code Problem GERD with esophagitis K21.0 Active 400323403 Problem Morbid (severe) obesity due to excess calories E66.01 Active 75038897094703 Problem Essential hypertension I10 Active 91776760 Problem Other chronic pain G89.29 Active 43861903 Problem Gastroesophageal reflux disease with esophagitis K21.0 Active 151767895 Problem Other ulcerative colitis without complication K51.80 Active 18658813 Problem Pancytopenia D61.818 Active 261475890 Problem Temporary low platelet count D69.6 Active 081652886 Problem Body mass index (BMI) of 40.0-44.9 in adult Z68.41 Active 695351545 Problem Body mass index (BMI) of 45.0-49.9 in adult Z68.42 Active 167751901 Problem Neutropenia, unspecified type D70.9 Active 222303375 Problem Other chronic pain G89.29 Active 41147529 ALLERGIES No Information ENCOUNTERS Encounter Location Date Diagnosis [facility] [id number] [place] [address] 98056- 5481 Feb, [facility] [id number] [place] [address] 64990 -5606 Feb, [place] eye disease of right eye H10.021 and BMI 40.0-44.9, adult Z68.41 [facility] [address] [place] [address] 74979- 9117 Jan, Other chronic pain G89.29 [facility] [id number] [place] [address] 24132- 0097 Dec, Other chronic pain G89.29 [facility] [address] [address] 59[address] Nov, Other chronic pain G89.29 [facility] [address] [place] [address] 11374- 3717 Nov, [facility] [id number] [place] [address] 64059- 3350 Nov, [facility] [id number] [place] [address] 23606- 4781 October, Other chronic pain G89.29 ; Pain in right knee M25.561 ; Pain in left knee M25.562 and Abdominal pain, left lower quadrant R10.32 [facility] [id number] [place] [address] 72441- 2164 15 Oct, 2017 [facility] [id number] [place] [address] 57561- 3087 October, Splenomegaly R16.1 ; Neutropenia, unspecified type D70.9 and Temporary low platelet count D69.6 [facility] [id number] [place] [address] 63286 -0030 October, [facility] [address] [address] 9468 October, Pancytopenia D61.818 [facility] [id number] [place] [address] 72237- 3679 October, [facility] [address] [address] 7309 October, [facility] [id number] [place] [address] 53184- 6112 October, Pancytopenia D61.818 [facility] [address] [address] 5647 Sep, Other chronic pain G89.29 ; Pain in left knee M25.562 ; Pain in right knee M25.561 and Abdominal pain, left lower quadrant R10.32 [facility] [id number] [place] [address] 07436- 5302 Sep, Edema of left lower extremity R60.0 ; Essential hypertension I10 ; Morbid (severe) obesity due to excess calories E66.01 ; Body mass index (BMI) of 40.0-44.9 in adult Z68.41 and Hiatal hernia K44.9 [facility] [id number] [place] [address] 11354- 9319 Aug, [place] [id number] [place] [address] 63582- 2437 Aug, [facility] [facility] [id number] [place] [address] 05853- 7396 Jul, Pain in right shoulder M25.511 [facility] [facility] [id number] [place] [address] 32246- 5431 Jul, [facility] [id number] [place] [address] 85565 -3493 Jul, Localized edema R60.0 and BMI 40.0-44.9, adult Z68.41 [facility] [facility] [id number] [place] [address] 26267- 7955 02 Jul, 2017 [facility] [id number] [place] [address] 54163- 6154 Jun, Edema of left lower extremity R60.0 ; Essential hypertension I10 ; Family history of coronary artery disease Z82.49 ; Morbid ( severe) obesity due to excess calories E66.01 and Body mass index (BMI) of 45.0- 49.9 in adult Z68.42 [place] [facility] [id number] [place] [address] 98811- 2994 Jun, Other chronic pain G89.29 [facility] [id number] [place] [address] 87999- 0004 Jun, Pain in right shoulder M25.511 [place] [address] [address] 4531 Jun, Other ulcerative colitis without complication K51.80 [facility] [id number] [place] [address] 78566 -3236 May, [facility] [id number] [place] [address] 33594- 5466 May, GERD with esophagitis K21.0 ; Other ulcerative colitis without complication K51.80 and Other chest pain R07.89 [facility] [id number] [place] [address] 12418- 7957 May, [facility] [id number] [place] [address] 84144 -5696 May, Left leg swelling M79.89 [facility] [id number] [place] [address] 15918- 2211 Apr, Pain in right shoulder M25.511 [facility] [id number] [place] [address] 77036- 8465 Apr, Pain in right shoulder M25.511 [facility] [id number] [place] [address] 51661- 0916 Mar, [facility] [id number] [place] [address] 87365- 8519 Mar, Pain in right shoulder M25.511 [facility] [id number] [place] [address] 89168- 2596 Mar, [facility] [id number] [place] [address] 74459- 0486 Mar, [facility] [id number] [place] [address] 08250- 0506 Feb, Pain in right shoulder M25.511 [facility] [id number] [address]- 7416 Jan, Pain in right shoulder M25.511 [place] [id number] [place] [address] 70359- 1001 Jan, [facility] [id number] [place] [address] 85958- 1730 Dec, Pain in right shoulder M25.511 [facility] [id number] [place] [address] 99633- 6781 Nov, Pain in right shoulder M25.511 [facility] [address] 69895- 9563 Nov, Pain in right shoulder M25.511 [facility] [address] 34485- 4640 October, Pain in right shoulder M25.511 [facility] [id number] [place] [address] 42943- 4161 Sep, Pain in right shoulder M25.511 [facility] [address] 73159- 4483 Aug, Pain in right shoulder M25.511 [facility] [id number] [place] [address] 62656- 6872 Jul, Pain in right shoulder M25.511 [facility] [id number] [place] [address] 90236- 1682 Jul, Pain in left shoulder M25.512 [facility] [id number] [place] [address] 48734- 9252 Jul, Other chronic pain G89.29 [facility] [id number] [place] [address] 54940- 8271 Jul, Pain in right shoulder M25.511 ; Other chronic pain G89.29 ; Pain in left shoulder M25.512 and Gastroesophageal reflux disease with esophagitis K21.0 [facility] [id number] [place] [address] 75877- 1862 Jun, [facility] [address] [address]- 3318 13 May, 2016 [facility] [address] [place] [address] 47031- 5302 May, [facility] [address] [address]- 7694 Apr, [facility] [id number] [place] [address] 78394- 2691 Mar, [facility] [id number] [place] [address] 85123- 5625 22 Feb, 2016 [facility] [id number] [place] [address] 94555- 1507 13 Feb, 2016 [facility] [id number] [place] [address] 69606- 7122 12 Feb, 2016 [facility] [id number] [place] [address] 51817- 4342 06 Feb, 2016 [facility] [address] [place] [address] 23048- 9210 Jan, [facility] [id number] [place] [address] 44164- 5934 Dec, Pain in left shoulder M25.512 [facility] [address] [address]- 1855 Dec, Gastroesophageal reflux disease, esophagitis presence not specified K21.9 [facility] [address] [address]- 1818 Nov, Pain in left shoulder M25.512 [facility] [id number] [place] [address] 13499- 9702 October, Pain in left shoulder M25.512 [facility] [address] [address]- 7907 Sep, Shoulder pain, left M25.512 [facility] [id number] [place] [address] 37428- 9203 29 Aug, 2015 Pain in right shoulder M25.511 and Other chronic pain G89.29 [facility] [id number] [place] [address] 79983- 3609 Aug, Shoulder pain, right M25.511 and GERD (gastroesophageal reflux disease) K21.9 [facility] [id number] [place] [address] 76956- 8885 Nov, [facility] [id number] [place] [address] 68095- 3843 Sep, [facility] [id number] [place] [address] 33262- 5637 Sep, [facility] [id number] [place] [address] 33992- 8624 Jul, [facility] [id number] [place] [address] 46934- 3831 Jul, [facility] [id number] [place] [address] 00273- 4050 Jul, [facility] [id number] [place] [address] 41274- 7388 Jul, [facility] [id number] [address]- 8401 Jul, [facility] [id number] [place] [address] 32207- 1817 Jul, [facility] [address] [place] [address] 330190- 2494 Jun, [facility] [id number] [place] [address] 775893- 9600 Jun, [facility] [address] [address]- 4696 Apr, [facility] [id number] [place] [address] 51461- 0325 Apr, [facility] [place] [facility] [address] [id number] [place] [address]- 4954 Apr, [facility] [place] [facility] [address] [id number] [place] [address]- 1242 Feb, [facility] [place] [facility] [address] [id number] [place] [address]- 8864 Feb, [facility] [place] [facility] [address] [id number] [place] [address]- 2731 Feb, [facility] [place] [facility] [address] [id number] [place] [address]- 7005 Feb, [facility] [place] [facility] [address] [id number] [place] [address]- 0301 Aug, [facility] [place] [facility] [address] [id number] [place] [address]- 4373 Aug, [facility] [place] [facility] [address] [id number] [place] [address]- 6745 Mar, [facility] [place] [facility] [address] [id number] [place] [address]- 7353 Mar, [facility] [place] [facility] [address] [id number] [place] [address]- 1025 Mar, [facility] [place] [facility] [address] [id number] [place] [address]- 1511 Mar, [facility] [place] [facility] [address] [id number] [address]- 2095 09 Feb, 2013 [facility] [place] [facility] [address] [id number] [place] [address]- 7034 06 Feb, 2013 [facility] [place] [facility] [address] [id number] [place] [address]- 0554 03 Feb, 2013 [facility] [place] [facility] [address] [id number] [place] [address]- 1723 30 Jan, 2013 [facility] [place] [facility] [id number] [address]- 5822 Jan, [facility] [id number] [address]- 7064 Dec, [facility] [id number] [address]- 3492 Dec, [facility] [address] [address]- 5515 Nov, [facility] [address] [address]- 4908 Nov, [facility] [address] [address]- 5351 Jan, [facility] [address] [address]- 4764 Jan, [facility] [address] [address]- 8087 Aug, [facility] [address] [address]- 7075 Jun, [facility] [address] [address]- 5217 Jun, [facility] [id number] [address]- 2518 Apr, [facility] [id number] [address]- 9907 Feb, IMMUNIZATIONS No Known Immunizations SOCIAL HISTORY Never Assessed REASON FOR VISIT Controlled Med Refill PLAN OF CARE VITAL SIGNS MEDICATIONS Medication Instructions Dosage Frequency Start Date End Date Duration Status Pacolet 5-325 MG Orally every 6 hrs 1 tablet as needed 6h 18 Dec, 2017 28 days Active RESULTS No Results PROCEDURES No Known procedures INSTRUCTIONS MEDICATIONS ADMINISTERED No Known Medications MEDICAL (GENERAL) HISTORY Type Description Date Medical History colitis Medical History right shoulder pain Medical History anup cell leukemia Medical History chemo Surgical History Appendectomy Surgical History Abscess drained and removed Hospitalization History surgery Hospitalization History dehydration Hospitalization History chest pain, pancytopenia, slenomegaly-[facility] 10/25/17
--- OUTSIDE RECORDS SUMMARY | 2018-06-13 15:43 | XMS REPORT ---
Author Author AMY HALEY Organization [facility] Address [address] [place] [address] Care Team Providers Care Nurse Licensed Practical Name Role Phone AMY HALEY Unavailable PROBLEMS Type Condition ICD9-CM Code TZT81-[place] Code Onset Dates Condition Status SNOMED Code Problem GERD with esophagitis K21.0 Active 141785226 Problem Morbid (severe) obesity due to excess calories E66.01 Active 27698180450816 Problem Essential hypertension I10 Active 57500252 Problem Other chronic pain G89.29 Active 65297358 Problem Gastroesophageal reflux disease with esophagitis K21.0 Active 628153811 Problem Other ulcerative colitis without complication K51.80 Active 30560630 Problem Pancytopenia D61.818 Active 101009046 Problem Temporary low platelet count D69.6 Active 667940340 Problem Body mass index (BMI) of 40.0-44.9 in adult Z68.41 Active 935550576 Problem Body mass index (BMI) of 45.0-49.9 in adult Z68.42 Active 146591584 Problem Neutropenia, unspecified type D70.9 Active 691904525 Problem Other chronic pain G89.29 Active 01374655 ALLERGIES No Information ENCOUNTERS Encounter Location Date Diagnosis [facility] [id number] [place] [address] 43725- 5248 Feb, [facility] [id number] [place] [address] 59447 -0560 Feb, 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 and BMI 40.0-44.9, adult Z68.41 [facility] [id number] [place] [address] 29043- 0444 Jan, Other chronic pain G89.29 [facility] [id number] [place] [address] 47277- 9936 Dec, Other chronic pain G89.29 [facility] [address] [address] 5[address] Nov, Other chronic pain G89.29 [facility] [id number] [place] [address] 13228- 7467 Nov, [facility] [id number] [place] [address] 28433- 6620 Nov, [facility] [id number] [place] [address] 17509- 0275 October, Other chronic pain G89.29 ; Pain in right knee M25.561 ; Pain in left knee M25.562 and Abdominal pain, left lower quadrant R10.32 [facility] [id number] [place] [address] 73028- 9893 15 Oct, 2017 [facility] [id number] [place] [address] 65448- 5448 October, Splenomegaly R16.1 ; Neutropenia, unspecified type D70.9 and Temporary low platelet count D69.6 [facility] [id number] [place] [address] 27446 -3377 October, [facility] [address] [address] 0112 October, Pancytopenia D61.818 [facility] [id number] [place] [address] 61628- 5514 October, [facility] [address] [address] 9528 October, [facility] [id number] [place] [address] 83733- 7733 October, Pancytopenia D61.818 [facility] [address] [address] 6141 Sep, Other chronic pain G89.29 ; Pain in left knee M25.562 ; Pain in right knee M25.561 and Abdominal pain, left lower quadrant R10.32 [facility] [id number] [place] [address] 54534- 6147 Sep, Edema of left lower extremity R60.0 ; Essential hypertension I10 ; Morbid (severe) obesity due to excess calories E66.01 ; Body mass index (BMI) of 40.0-44.9 in adult Z68.41 and Hiatal hernia K44.9 [facility] [id number] [place] [address] 62661- 3319 Aug, [place] [id number] [place] [address] 45430- 4595 Aug, [place] [id number] [place] [address] 65172- 3604 Jul, Pain in right shoulder M25.511 [place] [id number] [place] [address] 17322- 8866 Jul, [facility] [id number] [place] [address] 17249 -9482 Jul, Localized edema R60.0 and BMI 40.0-44.9, adult Z68.41 [place] [id number] [place] [address] 31820- 5536 02 Jul, 2017 [facility] [id number] [place] [address] 43345- 8342 Jun, Edema of left lower extremity R60.0 ; Essential hypertension I10 ; Family history of coronary artery disease Z82.49 ; Morbid ( severe) obesity due to excess calories E66.01 and Body mass index (BMI) of 45.0- 49.9 in adult Z68.42 [place] [id number] [place] [address] 69515- 4095 Jun, Other chronic pain G89.29 [facility] [id number] [place] [address] 36131- 3455 Jun, Pain in right shoulder M25.511 [place] [address] [address] 4129 Jun, Other ulcerative colitis without complication K51.80 [facility] [id number] [place] [address] 22805 -8426 May, [facility] [id number] [place] [address] 34951- 9206 May, GERD with esophagitis K21.0 ; Other ulcerative colitis without complication K51.80 and Other chest pain R07.89 [facility] [id number] [place] [address] 70455- 9327 May, [facility] [id number] [place] [address] 64685 -2346 May, Left leg swelling M79.89 [facility] [id number] [place] [address] 06107- 7075 Apr, Pain in right shoulder M25.511 [facility] [id number] [place] [address] 45191- 1356 Apr, Pain in right shoulder M25.511 [facility] [id number] [place] [address] 29052- 6076 Mar, [facility] [id number] [place] [address] 46595- 5394 Mar, Pain in right shoulder M25.511 [facility] [id number] [place] [address] 78346- 9816 Mar, [facility] [id number] [place] [address] 92554- 7806 Mar, [facility] [id number] [place] [address] 72460- 9786 Feb, Pain in right shoulder M25.511 [facility] [id number] [address]- 7236 Jan, Pain in right shoulder M25.511 [place] [id number] [place] [address] 26769- 2112 Jan, [facility] [id number] [place] [address] 14700- 4597 Dec, Pain in right shoulder M25.511 [facility] [id number] [place] [address] 98534- 5315 Nov, Pain in right shoulder M25.511 [facility] [address] 35982- 8677 Nov, Pain in right shoulder M25.511 [facility] [address] 23956- 3252 October, Pain in right shoulder M25.511 [facility] [id number] [place] [address] 33130- 4652 Sep, Pain in right shoulder M25.511 [facility] [address] 36173- 2325 Aug, Pain in right shoulder M25.511 [facility] [id number] [place] [address] 79783- 3362 Jul, Pain in right shoulder M25.511 [facility] [id number] [place] [address] 86627- 3383 Jul, Pain in left shoulder M25.512 [facility] [id number] [place] [address] 68063- 4617 Jul, Other chronic pain G89.29 [facility] [id number] [place] [address] 57531- 1078 Jul, Pain in right shoulder M25.511 ; Other chronic pain G89.29 ; Pain in left shoulder M25.512 and Gastroesophageal reflux disease with esophagitis K21.0 [facility] [id number] [place] [address] 08624- 3905 Jun, [facility] [address] [address]- 8477 13 May, 2016 [facility] [id number] [place] [address] 43624- 5070 May, [facility] [address] [address]- 3550 Apr, [facility] [id number] [place] [address] 17205- 9894 Mar, [facility] [id number] [place] [address] 18500- 2275 22 Feb, 2016 [facility] [id number] [place] [address] 95016- 6174 13 Feb, 2016 [facility] [id number] [place] [address] 76966- 6798 12 Feb, 2016 [facility] [id number] [place] [address] 45673- 8283 06 Feb, 2016 [facility] [address] [place] [address] 98667- 5891 Jan, [facility] [id number] [place] [address] 52548- 7909 Dec, Pain in left shoulder M25.512 [facility] [address], [place] [address]- 3420 Dec, Gastroesophageal reflux disease, esophagitis presence not specified K21.9 [facility] [address], [place] [address]- 9678 Nov, Pain in left shoulder M25.512 [facility] [id number] [place] [address] 69244- 4625 October, Pain in left shoulder M25.512 [facility] [address], [place] [address]- 1422 Sep, Shoulder pain, left M25.512 [facility] [id number] [place] [address] 83963- 5526 29 Aug, 2015 Pain in right shoulder M25.511 and Other chronic pain G89.29 [facility] [id number] [place] [address] 19190- 5604 Aug, Shoulder pain, right M25.511 and GERD (gastroesophageal reflux disease) K21.9 [facility] [id number] [place] [address] 93060- 6250 Nov, [facility] [id number] [place] [address] 94580- 3312 Sep, [facility] [id number] [place] [address] 39764- 5420 Sep, [facility] [id number] [place] [address] 71672- 5543 Jul, [facility] [id number] [place] [address] 75863- 4526 Jul, [facility] [id number] [place] [address] 36599- 5231 Jul, [facility] [id number] [place] [address] 00371- 3534 Jul, [facility] [id number] [address]- 6957 Jul, [facility] [id number] [place] [address] 15137- 1893 Jul, [facility] [address] [place] [address] 908446- 3645 Jun, [facility] [id number] [place] [address] 559798- 2283 Jun, [facility] [address] [address]- 7666 Apr, [facility] [id number] [place] [address] 83221- 3563 Apr, [facility] [place] [facility] [address] [id number] [place] [address]- 8793 Apr, [facility] [place] [facility] [address] [id number] [place] [address]- 3379 Feb, [facility] [place] [facility] [address] [id number] [place] [address]- 5581 Feb, [facility] [place] [facility] [address] [id number] [place] [address]- 2968 Feb, [facility] [place] [facility] [address] [id number] [place] [address]- 7224 Feb, [facility] [place] [facility] [address] [id number] [place] [address]- 0327 Aug, [facility] [place] [facility] [address] [id number] [place] [address]- 6552 Aug, [facility] [place] [facility] [address] [id number] [place] [address]- 7073 Mar, [facility] [place] [facility] [address] [id number] [place] [address]- 6860 Mar, [facility] [place] [facility] [address] [id number] [place] [address]- 2985 Mar, [facility] [place] [facility] [address] [id number] [place] [address]- 3458 Mar, [facility] [place] [facility] [address] [id number] [address]- 4273 09 Feb, 2013 [facility] [place] [facility] [address] [id number] [place] [address]- 1988 06 Feb, 2013 [facility] [place] [facility] [address] [id number] [place] [address]- 4253 03 Feb, 2013 [facility] [place] [facility] [address] [id number] [place] [address]- 9185 30 Jan, 2013 [facility] [place] [facility] [id number] [address]- 8204 Jan, [facility] [id number] [address]- 8286 Dec, [facility] [address], [place] [address]- 5056 Dec, [facility] [address], [place] [address]- 6624 Nov, [facility] [address], [place] [address]- 0202 Nov, [facility] [address], [place] [address]- 5766 Jan, [facility] [address], [place] [address]- 5749 Jan, [facility] [address] [address]- 6537 Aug, [facility] [address], [place] [address]- 8552 Jun, [facility] [address] [address]- 4671 Jun, [facility] [id number], [place] [address]- 3569 Apr, [facility] [id number], [place] [address]- 1056 Feb, IMMUNIZATIONS No Known Immunizations SOCIAL HISTORY Never Assessed REASON FOR VISIT Controlled Med Refill PLAN OF CARE VITAL SIGNS MEDICATIONS Medication Instructions Dosage Frequency Start Date End Date Duration Status Beaver 5-325 MG Orally every 6 hrs 1 tablet as needed 6h Jan, 28 days Active RESULTS No Results PROCEDURES No Known procedures INSTRUCTIONS MEDICATIONS ADMINISTERED No Known Medications MEDICAL (GENERAL) HISTORY Type Description Date Medical History colitis Medical History right shoulder pain Medical History anup cell leukemia Medical History chemo Surgical History Appendectomy Surgical History Abscess drained and removed Hospitalization History surgery Hospitalization History dehydration Hospitalization History chest pain, pancytopenia, slenomegaly-[facility] 10/25/17
--- OUTSIDE RECORDS SUMMARY | 2018-06-13 15:43 | XMS REPORT ---
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 Name Role Phone AMY HALEY Unavailable PROBLEMS Type Condition ICD9-CM Code TMM04-XK Code Onset Dates Condition Status SNOMED Code Problem GERD with esophagitis K21.0 Active 194496138 Problem Morbid (severe) obesity due to excess calories E66.01 Active 07581864709541 Problem Essential hypertension I10 Active 41559098 Problem Other chronic pain G89.29 Active 35547411 Problem Gastroesophageal reflux disease with esophagitis K21.0 Active 965108385 Problem Other ulcerative colitis without complication K51.80 Active 55038055 Problem Pancytopenia D61.818 Active 710103381 Problem Temporary low platelet count D69.6 Active 098414027 Problem Body mass index (BMI) of 40.0-44.9 in adult Z68.41 Active 844368448 Problem Body mass index (BMI) of 45.0-49.9 in adult Z68.42 Active 686852350 Problem Neutropenia, unspecified type D70.9 Active 344433602 Problem Other chronic pain G89.29 Active 68959231 ALLERGIES Substance Reaction Event Type Date Status Morphine Sulfate nausea and vomiting Drug Allergy Feb, Active ENCOUNTERS Encounter Location Date Diagnosis [facility] [id number] [place] [address]277- 1964 Feb, Leukemia in remission, 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 [facility] [id number] [place] [address] 72841 -0860 Feb, 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 and BMI 40.0-44.9, adult Z68.41 [facility] [id number] [address] 9605 Jan, Other chronic pain G89.29 [facility] [address] [address] 68[address] Dec, Other chronic pain G89.29 [facility] [id number] [place] [address] 69624- 6513 Nov, Other chronic pain G89.29 [facility] [id number] [place] [address] 65839- 6867 Nov, [facility] [id number] [place] [address] 05117- 2669 Nov, [facility] [id number] [place] [address] 59693- 9294 October, Other chronic pain G89.29 ; Pain in right knee M25.561 ; Pain in left knee M25.562 and Abdominal pain, left lower quadrant R10.32 [facility] [id number] [place] [address] 42387- 7064 October, [facility] [id number] [place] [address] 96301- 6981 October, Splenomegaly R16.1 ; Neutropenia, unspecified type D70.9 and Temporary low platelet count D69.6 [facility] [id number] [place] [address] 23633 -9371 October, [facility] [address] [address] 4116 October, Pancytopenia D61.818 [facility] [address] [address] 7893 October, [facility] [id number] [place] [address] 22028- 8056 October, [facility] [id number] [place] [address] 05613- 3466 October, Pancytopenia D61.818 [facility] [id number] [place] [address] 62229- 1869 Sep, Other chronic pain G89.29 ; Pain in left knee M25.562 ; Pain in right knee M25.561 and Abdominal pain, left lower quadrant R10.32 [place] [address] [address]10- 6023 Sep, Edema of left lower extremity R60.0 ; Essential hypertension I10 ; Morbid (severe) obesity due to excess calories E66.01 ; Body mass index (BMI) of 40.0-44.9 in adult Z68.41 and Hiatal hernia K44.9 [place] [address] 28100- 1411 Aug, [place] [address] 40502- 2040 Aug, [place] [address] 22347- 5623 Jul, Pain in right shoulder M25.511 [place] [address] 27648- 3862 Jul, [facility] [id number] [place] [address] 05107 -3631 Jul, Localized edema R60.0 and BMI 40.0-44.9, adult Z68.41 [place] [id number] [place] [address] 21105- 0135 Jul, [facility] [address] 87298- 8587 Jun, Edema of left lower extremity R60.0 ; Essential hypertension I10 ; Family history of coronary artery disease Z82.49 ; Morbid ( severe) obesity due to excess calories E66.01 and Body mass index (BMI) of 45.0- 49.9 in adult Z68.42 [place] [address] 92593- 3404 Jun, Other chronic pain G89.29 [place] [address] [place] [address]- 7049 Jun, Pain in right shoulder M25.511 [facility] [id number] [place] [address] 96366- 9342 Jun, Other ulcerative colitis without complication K51.80 [facility] [id number] [place] [address] 69439 -8892 May, [facility] [address] 71410- 4386 May, GERD with esophagitis K21.0 ; Other ulcerative colitis without complication K51.80 and Other chest pain R07.89 [facility] [address] 83621- 8431 May, [facility] [address] 83611 -2461 May, Left leg swelling M79.89 [facility] [address] 45477- 0890 Apr, Pain in right shoulder M25.511 [facility] [address] 95553- 3661 Apr, Pain in right shoulder M25.511 [facility] [id number] [place] [address] 37415- 9018 Mar, [facility] [id number] [place] [address] 74280- 9207 Mar, Pain in right shoulder M25.511 [facility] [id number] [place] [address] 54431- 8914 Mar, [facility] [address] 78208- 6525 Mar, [facility] [id number] [place] [address] 36961- 7310 Feb, Pain in right shoulder M25.511 [facility] [address] [place] [address]- 1698 Jan, Pain in right shoulder M25.511 [facility] [id number] [place] [address] 34124- 5911 Jan, [facility] [id number] [place] [address] 42853- 4992 Dec, Pain in right shoulder M25.511 [facility] [id number] [place] [address] 93126- 0894 Nov, Pain in right shoulder M25.511 [facility] [id number] [place] [address] 20459- 0648 Nov, Pain in right shoulder M25.511 [facility] [id number] [place] [address] 36098- 2976 October, Pain in right shoulder M25.511 [facility] [id number] [place] [address] 01121- 3317 Sep, Pain in right shoulder M25.511 [facility] [id number] [place] [address] 85019- 2483 Aug, Pain in right shoulder M25.511 [facility] [id number] [place] [address] 40805- 2605 Jul, Pain in right shoulder M25.511 [facility] [id number] [place] [address] 27168- 4903 Jul, Pain in left shoulder M25.512 [facility] [id number] [place] [address] 60947- 8992 Jul, Other chronic pain G89.29 [facility] [id number] [place] [address] 48919- 4724 09 Jul, 2016 Pain in right shoulder M25.511 ; Other chronic pain G89.29 ; Pain in left shoulder M25.512 and Gastroesophageal reflux disease with esophagitis K21.0 [facility] [id number] [address]- 6019 Jun, [facility] [address] 7698 May, [facility] [address] 6718 May, [facility] [id number] [place] [address] 402954- 0758 Apr, [facility] [address], [place] [address]- 9306 Mar, [facility] [id number] [place] [address] 748995- 9256 Feb, [facility] [id number] [place] [address] 13240- 9014 Feb, [facility] [id number] [place] [address] 42977- 5023 Feb, [facility] [address], [place] [address]- 6718 Feb, [facility] [id number] [place] [address] 13812- 6666 Jan, [facility] [address], [place] [address]- 7290 Dec, Pain in left shoulder M25.512 [facility] [address], [place] [address]- 1392 Dec, Gastroesophageal reflux disease, esophagitis presence not specified K21.9 [facility] [address], [place] [address]- 1540 Nov, Pain in left shoulder M25.512 [facility] [address], [place] [address]- 1920 October, Pain in left shoulder M25.512 [facility] [address] 6786 Sep, Shoulder pain, left M25.512 [facility] [address] [place] [address], [place] [address]- 6104 Aug, Pain in right shoulder M25.511 and Other chronic pain G89.29 [facility] [id number] [address] 2546 07 Aug, 2015 Shoulder pain, right M25.511 and GERD (gastroesophageal reflux disease) K21.9 [facility] [id number] [place] [address] 24706- 2559 Nov, [facility] [id number] [place] [address] 22958- 9816 Sep, [facility] [id number] [place] [address] 95545- 7881 Sep, [facility] [id number] [place] [address] 61423- 9110 Jul, [facility] [address] [address]- 1127 Jul, [facility] [id number] [place] [address] 43862- 5281 Jul, [facility] [address], [place] [address]- 1407 Jul, [facility] [id number] [place] [address] 54084- 1751 Jul, [facility] [address], [place] [address]- 4818 Jul, [facility] [id number] [place] [address] 770181- 1787 Jun, [facility] [address] 8946 Jun, [facility] [id number] [place] [address] 183187- 3528 Apr, [facility] [place] [facility] [address] [id number] [place] [address]- 2223 Apr, [facility] [place] [facility] [address] [id number] [place] [address]- 4366 Apr, [facility] [place] [facility] [address] [id number] [place] [address]- 8179 Feb, [facility] [place] [facility] [address] [id number] [place] [address]- 0167 Feb, [facility] [place] [facility] [address] [id number] [place] [address]- 2007 Feb, [facility] [place] [facility] [address] [id number] [place] [address]- 1213 Feb, [facility] [place] [facility] [address] [id number] [place] [address]- 2193 Aug, [facility] [place] [facility] [address] [id number] [place] [address]- 2163 Aug, [facility] [place] [facility] [address] [id number] [place] [address]- 7543 Mar, [facility] [place] [facility] [address] [id number] [place] [address]- 4790 Mar, [facility] [place] [facility] [address] [id number], [place] [address]- 2593 Mar, [facility] [place] [facility] [address] [id number], [place] [address]- 4205 16 Mar, 2013 [facility] [place] [facility] [address] [id number] [place] [address]- 2442 09 Feb, 2013 [facility] [place] [facility] [address] [id number] [place] [address]- 2384 06 Feb, 2013 [facility] [place] [facility] [address] [id number], [place] [address]- 7352 03 Feb, 2013 [facility] [place] [facility] [address] [id number], [place] [address]- 7428 Jan, [facility] [id number] [address]- 8959 Jan, [facility] [address], [place] [address]- 8026 Dec, [facility] [address], [place] [address]- 5907 Dec, [facility] [address], [place] [address]- 6552 Nov, [facility] [address] [place] [address]- 8616 Nov, [facility] [address] 2092 Jan, [facility] [address], [place] [address]- 2220 Jan, [facility] [address], [place] [address]- 1932 Aug, [facility] [address], [place] [address]- 5830 Jun, [facility] [address], [place] [address]- 0357 Jun, [facility] [id number], [place] [address]- 5511 Apr, [facility] [id number], [place] [address]- 0882 Feb, IMMUNIZATIONS No Known Immunizations SOCIAL HISTORY Never Assessed REASON FOR VISIT Hypertension, still some swelling in left leg. Gareth MCDONNELL PLAN OF CARE VITAL SIGNS Height 69 in 2018-03-16 Weight 265.8 lbs 2018-03-16 Temperature 98.7 degrees Fahrenheit 2018-03-16 Heart Rate 102 bpm 2018-03-16 Respiratory Rate 20 2018-03-16 Oximetry 98 % 2018-03-16 BMI 39.25 kg/m2 2018-03-16 Blood pressure systolic 130 mmHg 2018-03-16 Blood pressure diastolic 90 mmHg 2018-03-16 MEDICATIONS Medication Instructions Dosage Frequency Start Date End Date Duration Status Tylenol Extra Strength 500 mg Orally every 6 hrs 2 tablets as needed 6h Active Mens Daily Formula/Lycopene - Active Protonix 40 mg Orally Once a [...] Hospitalization History chest pain, pancytopenia, slenomegaly-[facility] 10/25/17
--- OUTSIDE RECORDS SUMMARY | 2018-06-13 15:44 | XMS REPORT ---
Author Author AMY HALEY Organization [facility] Address [address] [place] [address] Care Team Providers Care [employer] Player Name Role Phone AMY HALEY Unavailable PROBLEMS Type Condition ICD9-CM Code LEP92-[place] Code Onset Dates Condition Status SNOMED Code Problem GERD with esophagitis K21.0 Active 151783712 Problem Morbid (severe) obesity due to excess calories E66.01 Active 33826143574464 Problem Essential hypertension I10 Active 25355150 Problem Other chronic pain G89.29 Active 36933095 Problem Gastroesophageal reflux disease with esophagitis K21.0 Active 547453236 Problem Other ulcerative colitis without complication K51.80 Active 26459857 Problem Pancytopenia D61.818 Active 283999913 Problem Temporary low platelet count D69.6 Active 578918624 Problem Body mass index (BMI) of 40.0-44.9 in adult Z68.41 Active 110187099 Problem Body mass index (BMI) of 45.0-49.9 in adult Z68.42 Active 864568971 Problem Neutropenia, unspecified type D70.9 Active 946001873 Problem Other chronic pain G89.29 Active 93591696 ALLERGIES No Information ENCOUNTERS Encounter Location Date Diagnosis [facility] [id number] [place] [address] 85527- 5733 Dec, Other chronic pain G89.29 [facility] [id number] [place] [address] 60297- 5744 Nov, Other chronic pain G89.29 [facility] [id number] [place] [address] 95294- 7130 Nov, [facility] [id number] [place] [address] 95456- 9378 Nov, [facility] [id number] [place] [address] 86344- 0004 October, Other chronic pain G89.29 ; Pain in right knee M25.561 ; Pain in left knee M25.562 and Abdominal pain, left lower quadrant R10.32 [facility] [id number] [place] [address] 13935- 4048 October, [facility] [id number] [place] [address] 35838- 3172 October, Splenomegaly R16.1 ; Neutropenia, unspecified type D70.9 and Temporary low platelet count D69.6 [facility] [id number] [place] [address] 64211 -6493 October, [facility] [id number] [place] [address] 32090- 6131 October, Pancytopenia D61.818 [facility] [id number] [place] [address] 55430- 6134 October, [facility] [id number] [place] [address] 28714- 4603 October, [facility] [id number] [place] [address] 32787- 5367 October, Pancytopenia D61.818 [facility] [id number] [place] [address] 54091- 5444 Sep, Other chronic pain G89.29 ; Pain in left knee M25.562 ; Pain in right knee M25.561 and Abdominal pain, left lower quadrant R10.32 [facility] [id number] [place] [address] 83262- 5411 Sep, Edema of left lower extremity R60.0 ; Essential hypertension I10 ; Morbid (severe) obesity due to excess calories E66.01 ; Body mass index (BMI) of 40.0-44.9 in adult Z68.41 and Hiatal hernia K44.9 [facility] [id number] [place] [address] 39298- 2412 Aug, [place] [id number] [place] [address] 54922- 7473 Aug, [facility] [id number] [place] [address] 56683- 5062 Jul, Pain in right shoulder M25.511 [facility] [id number] [place] [address] 34142- 8399 Jul, [facility] [address] [address] -3697 Jul, Localized edema R60.0 and BMI 40.0-44.9, adult Z68.41 [place] [address] 96850- 5623 Jul, [place] [facility] [address] 68491- 3704 Jun, Edema of left lower extremity R60.0 ; Essential hypertension I10 ; Family history of coronary artery disease Z82.49 ; Morbid ( severe) obesity due to excess calories E66.01 and Body mass index (BMI) of 45.0- 49.9 in adult Z68.42 [facility] [id number] [place] [address] 31060- 8524 Jun, Other chronic pain G89.29 [facility] [id number] [place] [address] 24842- 5023 Jun, Pain in right shoulder M25.511 [facility] [id number] [place] [address] 47648- 4059 Jun, Other ulcerative colitis without complication K51.80 [facility] [id number] [place] [address] 77932 -9920 May, [place] [id number] [place] [address] 04780- 9526 May, GERD with esophagitis K21.0 ; Other ulcerative colitis without complication K51.80 and Other chest pain R07.89 [facility] [address] [facility] [id number] [address] May, [facility] [id number] [place] [address] 82866 -0406 May, Left leg swelling M79.89 [facility] [id number] [place] [address] 40511- 4416 Apr, Pain in right shoulder M25.511 [facility] [id number] [place] [address] 21336- 0116 Apr, Pain in right shoulder M25.511 [facility] [id number] [place] [address] 13032- 9286 Mar, [facility] [id number] [place] [address] 15598- 2700 Mar, Pain in right shoulder M25.511 [facility] [id number] [place] [address] 59338- 1258 Mar, [facility] [id number] [place] [address] 65838- 2590 Mar, [facility] [id number] [place] [address] 76107- 3296 Feb, Pain in right shoulder M25.511 [facility] [id number] [place] [address] 31288- 7966 Jan, Pain in right shoulder M25.511 [facility] [address] [address] 8656 Jan, [facility] [id number] [place] [address] 01034- 5882 Dec, Pain in right shoulder M25.511 [facility] [id number] [address]- 9266 Nov, Pain in right shoulder M25.511 [facility] [id number] [place] [address] 17805- 4007 Nov, Pain in right shoulder M25.511 [facility] [address] [address]- 3594 October, Pain in right shoulder M25.511 [facility] [id number] 2976 Sep, Pain in right shoulder M25.511 [facility] [id number] [place] [address] 82034- 4103 Aug, Pain in right shoulder M25.511 [facility] [address] [place] [address] 72723- 6938 Jul, Pain in right shoulder M25.511 [facility] [id number] [place] [address] 54496- 4926 Jul, Pain in left shoulder M25.512 [facility] [id number] [address]- 4252 Jul, Other chronic pain G89.29 [facility] [id number] [address]- 9095 Jul, Pain in right shoulder M25.511 ; Other chronic pain G89.29 ; Pain in left shoulder M25.512 and Gastroesophageal reflux disease with esophagitis K21.0 [facility] [address] [address]- 6951 Jun, [facility] [id number] [address]- 9113 May, [facility] [address] 3126 May, [facility] [id number] 2826 Apr, [facility] [address] [address]- 7616 Mar, [facility] [id number] [place] [address] 34992- 0743 22 Feb, 2016 [facility] [id number] [place] [address] 92151- 8495 13 Feb, 2016 [facility] [id number] [place] [address] 94404- 3572 12 Feb, 2016 [facility] [id number] [place] [address] 22583- 8788 Feb, [facility] [id number] [place] [address] 90640- 7666 Jan, [facility] [id number] [place] [address] 23715- 3747 Dec, Pain in left shoulder M25.512 [facility] [id number] [place] [address] 24239- 9879 Dec, Gastroesophageal reflux disease, esophagitis presence not specified K21.9 [facility] [id number] [place] [address] 96434- 2265 Nov, Pain in left shoulder M25.512 [facility] [id number] [place] [address] 91570- 0150 October, Pain in left shoulder M25.512 [facility] [id number] [place] [address] 60021- 5932 Sep, Shoulder pain, left M25.512 [facility] [id number] [place] [address] 81327- 6140 Aug, Pain in right shoulder M25.511 and Other chronic pain G89.29 [facility] [id number] [place] [address] 85987- 6932 Aug, Shoulder pain, right M25.511 and GERD (gastroesophageal reflux disease) K21.9 [facility] [id number] [place] [address] 10439- 3156 Nov, [facility] [address] [place] [address]- 9429 14 Sep, 2014 [facility] [place] [facility] [address] [id number] [place] [address]- 8885 13 Sep, 2014 [facility] [place] [facility] [address] [id number] [place] [address]- 7056 23 Jul, 2014 [facility] [place] [facility] [address] [id number] [place] [address]- 3836 Jul, 2014 [facility] [place] [facility] [address] [id number] [place] [address]- 7315 Jul, 2014 [facility] [place] [facility] [address] [id number] [place] [address]- 9173 Jul, 2014 [facility] [place] [facility] [address] [id number] [place] [address]- 4638 Jul, [facility] [place] [facility] [address] [id number] [place] [address]- 2150 Jul, [facility] [place] [facility] [address] [id number] [place] [address]- 8632 Jun, [facility] [place] [facility] [address] [id number] [place] [address]- 9985 Jun, [facility] [place] [facility] [address] [facility] [id number] [place] [address]- 1562 Apr, [facility] [place] [facility] [address] [id number] [place] [address]- 7078 Apr, [facility] [place] [facility] [address] [id number] [place] [address]- 4453 Apr, [facility] [place] [facility] [address] [id number] [place] [address]- 9371 Feb, [facility] [place] [facility] [address] [id number] [place] [address]- 9485 Feb, [facility] [place] [facility] [address] [id number] [place] [address]- 9481 Feb, [facility] [place] [facility] [address] [id number] [place] [address]- 6668 Feb, [facility] [place] [facility] [address] [id number] [place] [address]- 0484 Aug, [facility] [place] [facility] [address] [id number] [place] [address]- 0128 Aug, [facility] [place] [facility] [address] [id number] [place] [address]- 4905 Mar, [facility] [place] [facility] [address] [id number] [place] [address]- 6168 Mar, [facility] [place] [facility] [address] [id number] [place] [address]- 7238 Mar, [facility] [place] [facility] [address] [id number] [place] [address]- 1428 Mar, [facility] [place] [facility] [address] [id number] [place] [address]- 9153 Feb, [facility] [place] [facility] [address] [id number] [place] [address]- 2352 06 Feb, 2013 [facility] [place] [facility] [address] [id number] [place] [address]- 8789 Feb, [facility] [place] [facility] [address] [id number] [place] [address]- 6525 Jan, [facility] [place] [facility] [address] [id number] [place] [address]- 8743 Jan, [facility] [place] [facility] [address] [id number] [place] [address]- 2022 Dec, [facility] [place] [facility] [address] [id number] [place] [address]- 2231 Dec, [facility] [place] [facility] [address] [id number] [place] [address]- 6094 Nov, [facility] [place] [facility] [id number] [address]- 4116 14 Nov, 2012 [facility] [id number] [address]- 1226 Jan, [facility] [id number] [address]- 2546 Jan, [facility] [address] [address]- 2546 Aug, [facility] [address] [address]- 2546 Jun, [facility] [address] [address]- 7726 Jun, [facility] [address] [address]- 8366 Apr, [facility] [id number] [address]- 4116 Feb, IMMUNIZATIONS No Known Immunizations SOCIAL HISTORY Never Assessed REASON FOR VISIT Controlled Med Refill PLAN OF CARE VITAL SIGNS MEDICATIONS Medication Instructions Dosage Frequency Start Date End Date Duration Status [place] 5-325 MG Orally every 6 hrs 1 tablet as needed 6h Nov, Active RESULTS No Results PROCEDURES No Known procedures INSTRUCTIONS MEDICATIONS ADMINISTERED No Known Medications MEDICAL (GENERAL) HISTORY Type Description Date Medical History colitis Medical History right shoulder pain Surgical History Appendectomy Surgical History Abscess drained and removed Hospitalization History surgery Hospitalization History dehydration Hospitalization History chest pain, pancytopenia, slenomegaly-[facility] 10/25/17
--- OUTSIDE RECORDS SUMMARY | 2018-06-13 15:44 | XMS REPORT ---
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 Name Role Phone AMY HALEY Unavailable PROBLEMS Type Condition ICD9-CM Code WBY40-GX Code Onset Dates Condition Status SNOMED Code Problem GERD with esophagitis K21.0 Active 416058970 Problem Morbid (severe) obesity due to excess calories E66.01 Active 46688803324544 Problem Essential hypertension I10 Active 47482485 Problem Other chronic pain G89.29 Active 85293581 Problem Gastroesophageal reflux disease with esophagitis K21.0 Active 847802083 Problem Other ulcerative colitis without complication K51.80 Active 95802926 Problem Pancytopenia D61.818 Active 811757656 Problem Temporary low platelet count D69.6 Active 371704551 Problem Body mass index (BMI) of 40.0-44.9 in adult Z68.41 Active 365269245 Problem Body mass index (BMI) of 45.0-49.9 in adult Z68.42 Active 489157104 Problem Neutropenia, unspecified type D70.9 Active 932902301 Problem Other chronic pain G89.29 Active 32947187 ALLERGIES No Information ENCOUNTERS Encounter Location Date Diagnosis [facility] [id number] [place] [address] 87941- 3794 Dec, Other chronic pain G89.29 [facility] [id number] [place] [address] 53519- 9344 Nov, Other chronic pain G89.29 [facility] [id number] [place] [address] 13285- 6512 Nov, [facility] [id number] [place] [address] 41924- 9123 Nov, [facility] [id number] [place] [address] 33206- 4601 October, Other chronic pain G89.29 ; Pain in right knee M25.561 ; Pain in left knee M25.562 and Abdominal pain, left lower quadrant R10.32 [facility] [id number] [place] [address] 02880- 3603 October, [facility] [id number] [place] [address] 24145- 0314 October, Splenomegaly R16.1 ; Neutropenia, unspecified type D70.9 and Temporary low platelet count D69.6 [facility] [id number] [place] [address] 37722 -4305 October, [facility] [id number] [place] [address] 50063- 3267 October, Pancytopenia D61.818 [place] [id number] [place] [address] 25952- 4577 October, [facility] [id number] [place] [address] 14169- 7021 October, [place] [facility] [id number] [place] [address] 96270- 3007 October, Pancytopenia D61.818 [facility] [id number] [place] [address] 36224- 2342 Sep, Other chronic pain G89.29 ; Pain in left knee M25.562 ; Pain in right knee M25.561 and Abdominal pain, left lower quadrant R10.32 [place] [id number] [place] [address] 99649- 7760 Sep, Edema of left lower extremity R60.0 ; Essential hypertension I10 ; Morbid (severe) obesity due to excess calories E66.01 ; Body mass index (BMI) of 40.0-44.9 in adult Z68.41 and Hiatal hernia K44.9 [facility] [id number] [place] [address] 55675- 0182 Aug, [place] [facility] [id number] [place] [address] 72901- 6016 Aug, [place] [id number] [place] [address] 04650- 1275 Jul, Pain in right shoulder M25.511 [place] [id number] [place] [address] 84795- 3444 Jul, [facility] [address] 74272 -9403 Jul, Localized edema R60.0 and BMI 40.0-44.9, adult Z68.41 [place] [address] 23953- 7704 Jul, [place] [address] 13638- 7991 Jun, Edema of left lower extremity R60.0 ; Essential hypertension I10 ; Family history of coronary artery disease Z82.49 ; Morbid ( severe) obesity due to excess calories E66.01 and Body mass index (BMI) of 45.0- 49.9 in adult Z68.42 [place] [id number] [place] [address] 25453- 1472 Jun, Other chronic pain G89.29 [place] [id number] [place] [address] 06697- 1672 Jun, Pain in right shoulder M25.511 [place] [id number] [place] [address] 23544- 6281 Jun, Other ulcerative colitis without complication K51.80 [facility] [id number] [place] [address] 81337 -1453 May, [place] [id number] [place] [address] 60691- 7776 May, GERD with esophagitis K21.0 ; Other ulcerative colitis without complication K51.80 and Other chest pain R07.89 [facility] [address] [facility] [id number] [address] 4[address] May, [facility] [id number] [place] [address] 50965 -7166 May, Left leg swelling M79.89 [facility] [id number] [place] [address] 02388- 5286 Apr, Pain in right shoulder M25.511 [facility] [id number] [place] [address] 16745- 5391 Apr, Pain in right shoulder M25.511 [facility] [id number] [place] [address] 87366- 0666 Mar, [facility] [id number] [place] [address] 29232- 8635 Mar, Pain in right shoulder M25.511 [facility] [id number] [place] [address] 98384- 5938 Mar, [facility] [id number] [place] [address] 18222- 3770 Mar, [facility] [id number] [place] [address] 42070- 2416 Feb, Pain in right shoulder M25.511 [facility] [id number] [place] [address] 42568- 5396 Jan, Pain in right shoulder M25.511 [facility] [address] [address]- 1606 Jan, [facility] [id number] [place] [address] 87795- 5785 Dec, Pain in right shoulder M25.511 [facility] [id number] [address]- 8036 Nov, Pain in right shoulder M25.511 [facility] [id number] [place] [address] 73896- 1353 Nov, Pain in right shoulder M25.511 [facility] [address] [address]- 5035 October, Pain in right shoulder M25.511 [facility] [id number] 1826 Sep, Pain in right shoulder M25.511 [facility] [id number] [place] [address] 04595- 0309 Aug, Pain in right shoulder M25.511 [facility] [address] [place] [address] 71857- 3536 Jul, Pain in right shoulder M25.511 [facility] [id number] [place] [address] 79229- 7311 Jul, Pain in left shoulder M25.512 [facility] [id number] [address]- 5433 Jul, Other chronic pain G89.29 [facility] [id number] [address]- 7689 Jul, Pain in right shoulder M25.511 ; Other chronic pain G89.29 ; Pain in left shoulder M25.512 and Gastroesophageal reflux disease with esophagitis K21.0 [facility] [address] [address]- 6276 Jun, [facility] [id number] [address]- 5682 May, [facility] [address] 0966 May, [facility] [id number] 6256 Apr, [facility] [address] [address]- 1416 Mar, [facility] [id number] [place] [address] 88048- 5120 22 Feb, 2016 [facility] [id number] [place] [address] 64170- 0975 13 Feb, 2016 [facility] [id number] [place] [address] 23655- 0018 12 Feb, 2016 [facility] [id number] [place] [address] 28568- 5839 Feb, [facility] [id number] [place] [address] 11382- 7258 Jan, [facility] [id number] [place] [address] 48448- 2650 Dec, Pain in left shoulder M25.512 [facility] [id number] [place] [address] 71142- 4656 Dec, Gastroesophageal reflux disease, esophagitis presence not specified K21.9 [facility] [id number] [place] [address] 02028- 7260 Nov, Pain in left shoulder M25.512 [facility] [id number] [place] [address] 73941- 7107 October, Pain in left shoulder M25.512 [facility] [id number] [place] [address] 81722- 7678 Sep, Shoulder pain, left M25.512 [facility] [id number] [place] [address] 44503- 0758 Aug, Pain in right shoulder M25.511 and Other chronic pain G89.29 [facility] [id number] [place] [address] 30751- 5743 Aug, Shoulder pain, right M25.511 and GERD (gastroesophageal reflux disease) K21.9 [facility] [id number] [place] [address] 72179- 4681 Nov, [facility] [address] [place] [address]- 9380 14 Sep, 2014 [facility] [place] [facility] [address] [id number] [place] [address]- 5751 13 Sep, 2014 [facility] [place] [facility] [address] [id number] [place] [address]- 7586 23 Jul, 2014 [facility] [place] [facility] [address] [id number] [place] [address]- 2256 Jul, 2014 [facility] [place] [facility] [address] [id number] [place] [address]- 9570 Jul, 2014 [facility] [place] [facility] [address] [id number] [place] [address]- 3083 Jul, 2014 [facility] [place] [facility] [address] [id number] [place] [address]- 1633 Jul, [facility] [place] [facility] [address] [id number] [place] [address]- 8645 Jul, [facility] [place] [facility] [address] [id number] [place] [address]- 1969 Jun, [facility] [place] [facility] [address] [id number] [place] [address]- 7869 Jun, [facility] [place] [facility] [address] [facility] [id number] [place] [address]- 4769 Apr, [facility] [place] [facility] [address] [id number] [place] [address]- 2300 Apr, [facility] [place] [facility] [address] [id number] [place] [address]- 2926 Apr, [facility] [place] [facility] [address] [id number] [place] [address]- 2728 Feb, [facility] [place] [facility] [address] [id number] [place] [address]- 8764 Feb, [facility] [place] [facility] [address] [id number] [place] [address]- 8882 Feb, [facility] [place] [facility] [address] [id number] [place] [address]- 3994 Feb, [facility] [place] [facility] [address] [id number] [place] [address]- 4957 Aug, [facility] [place] [facility] [address] [id number] [place] [address]- 2298 Aug, [facility] [place] [facility] [address] [id number] [place] [address]- 0145 Mar, [facility] [place] [facility] [address] [id number] [place] [address]- 8635 Mar, [facility] [place] [facility] [address] [id number] [place] [address]- 9768 Mar, [facility] [place] [facility] [address] [id number] [place] [address]- 8460 Mar, [facility] [place] [facility] [address] [id number] [place] [address]- 4485 Feb, [facility] [place] [facility] [address] [id number] [place] [address]- 7290 06 Feb, 2013 [facility] [place] [facility] [address] [id number] [place] [address]- 3248 Feb, [facility] [place] [facility] [address] [id number] [place] [address]- 8609 Jan, [facility] [place] [facility] [address] [id number] [place] [address]- 9121 Jan, [facility] [place] [facility] [address] [id number] [place] [address]- 6346 Dec, [facility] [place] [facility] [address] [id number] [place] [address]- 1073 Dec, [facility] [place] [facility] [address] [id number] [place] [address]- 0511 Nov, [facility] [place] [facility] [address] [id number] [address]- 2896 14 Nov, 2012 [facility] [address], [place] [address]- 4376 Jan, [facility] [address] [address]- 9596 Jan, [facility] [address], [place] [address]- 2546 Aug, [facility] [address], [place] [address] 2546 Jun, [facility] [address] [address]- 9956 Jun, [facility] [address] [address]- 2547 Apr, [facility] [id number], [place] [address]- 2626 17 Feb, 2010 IMMUNIZATIONS No Known Immunizations SOCIAL HISTORY Never Assessed REASON FOR VISIT X-ray results PLAN OF CARE VITAL SIGNS MEDICATIONS Unknown Medications RESULTS No Results PROCEDURES No Known procedures INSTRUCTIONS MEDICATIONS ADMINISTERED No Known Medications MEDICAL (GENERAL) HISTORY Type Description Date Medical History colitis Medical History right shoulder pain Surgical History Appendectomy Surgical History Abscess drained and removed Hospitalization History surgery Hospitalization History dehydration Hospitalization History chest pain, pancytopenia, slenomegaly-[facility] 10/25/17
--- OUTSIDE RECORDS SUMMARY | 2018-06-13 15:44 | XMS REPORT ---
Author Author AMY HALEY Organization [facility] Address [address] [place] [address] Care Team Providers Care Keysmith Name Role Phone AMY HALEY Unavailable PROBLEMS Type Condition ICD9-CM Code BFM30-VC Code Onset Dates Condition Status SNOMED Code Problem GERD with esophagitis K21.0 Active 294494922 Problem Morbid (severe) obesity due to excess calories E66.01 Active 39813817809272 Problem Essential hypertension I10 Active 79448960 Problem Other chronic pain G89.29 Active 72652301 Problem Gastroesophageal reflux disease with esophagitis K21.0 Active 328701232 Problem Other ulcerative colitis without complication K51.80 Active 69724743 Problem Pancytopenia D61.818 Active 619284604 Problem Temporary low platelet count D69.6 Active 588347563 Problem Body mass index (BMI) of 40.0-44.9 in adult Z68.41 Active 730639076 Problem Body mass index (BMI) of 45.0-49.9 in adult Z68.42 Active 746306065 Problem Neutropenia, unspecified type D70.9 Active 760951242 Problem Other chronic pain G89.29 Active 79174826 ALLERGIES No Information ENCOUNTERS Encounter Location Date Diagnosis [facility] [id number] [place] [address] 87822- 9916 Dec, Other chronic pain G89.29 [facility] [id number] [place] [address] 27818- 8617 Nov, Other chronic pain G89.29 [facility] [id number] [place] [address] 16706- 7167 Nov, [facility] [id number] [place] [address] 29703- 0347 Nov, [facility] [id number] [place] [address] 88317- 8230 October, Other chronic pain G89.29 ; Pain in right knee M25.561 ; Pain in left knee M25.562 and Abdominal pain, left lower quadrant R10.32 [facility] [id number] [place] [address] 88647- 0942 October, [facility] [id number] [place] [address] 42406- 5179 October, Splenomegaly R16.1 ; Neutropenia, unspecified type D70.9 and Temporary low platelet count D69.6 [facility] [id number] [place] [address] 92444 -3986 October, [facility] [id number] [place] [address] 21799- 6552 October, Pancytopenia D61.818 [place] [facility] [id number] [place] [address] 65038- 8869 October, [facility] [id number] [place] [address] 21026- 3040 October, [place] [id number] [place] [address] 94246- 2203 October, Pancytopenia D61.818 [facility] [id number] [place] [address] 63778- 2571 Sep, Other chronic pain G89.29 ; Pain in left knee M25.562 ; Pain in right knee M25.561 and Abdominal pain, left lower quadrant R10.32 [place] [id number] [place] [address] 86477- 2185 Sep, Edema of left lower extremity R60.0 ; Essential hypertension I10 ; Morbid (severe) obesity due to excess calories E66.01 ; Body mass index (BMI) of 40.0-44.9 in adult Z68.41 and Hiatal hernia K44.9 [facility] [id number] [place] [address] 62457- 4098 Aug, [place] [id number] [place] [address] 05941- 1722 Aug, [place] [id number] [place] [address] 84171- 7565 Jul, Pain in right shoulder M25.511 [place] [id number] [place] [address] 88343- 9741 Jul, [facility] [address] 09964 -9396 Jul, Localized edema R60.0 and BMI 40.0-44.9, adult Z68.41 [place] [address] 21276- 8856 Jul, [place] [address] 57156- 3046 Jun, Edema of left lower extremity R60.0 ; Essential hypertension I10 ; Family history of coronary artery disease Z82.49 ; Morbid ( severe) obesity due to excess calories E66.01 and Body mass index (BMI) of 45.0- 49.9 in adult Z68.42 [place] [id number] [place] [address] 18459- 0702 Jun, Other chronic pain G89.29 [place] [id number] [place] [address] 15754- 8303 Jun, Pain in right shoulder M25.511 [place] [id number] [place] [address] 12879- 4343 Jun, Other ulcerative colitis without complication K51.80 [facility] [id number] [place] [address] 47830 -5761 May, [place] [id number] [place] [address] 21304- 9101 May, GERD with esophagitis K21.0 ; Other ulcerative colitis without complication K51.80 and Other chest pain R07.89 [facility] [address] [facility] [id number] [address] May, [facility] [id number] [place] [address] 84018 -2076 May, Left leg swelling M79.89 [facility] [id number] [place] [address] 23802- 7196 Apr, Pain in right shoulder M25.511 [facility] [id number] [place] [address] 17780- 3191 Apr, Pain in right shoulder M25.511 [facility] [id number] [place] [address] 74457- 4556 Mar, [facility] [id number] [place] [address] 88530- 0255 Mar, Pain in right shoulder M25.511 [facility] [id number] [place] [address] 24733- 0099 Mar, [facility] [id number] [place] [address] 04639- 3230 Mar, [facility] [id number] [place] [address] 71521- 6396 Feb, Pain in right shoulder M25.511 [facility] [id number] [place] [address] 46537- 6086 Jan, Pain in right shoulder M25.511 [facility] [address] [address]- 2036 Jan, [facility] [id number] [place] [address] 74236- 5925 Dec, Pain in right shoulder M25.511 [facility] [address] [id number] [address]- 7656 Nov, Pain in right shoulder M25.511 [facility] [id number] [place] [address] 34874- 0134 Nov, Pain in right shoulder M25.511 [facility] [address] [address]- 9941 October, Pain in right shoulder M25.511 [facility] [id number] 8296 Sep, Pain in right shoulder M25.511 [facility] [id number] [place] [address] 04005- 7810 Aug, Pain in right shoulder M25.511 [facility] [id number] [place] [address] 69620- 5530 Jul, Pain in right shoulder M25.511 [facility] [id number] [place] [address] 60155- 2925 Jul, Pain in left shoulder M25.512 [facility] [id number] [address]- 0549 Jul, Other chronic pain G89.29 [facility] [id number] [address]- 8541 Jul, Pain in right shoulder M25.511 ; Other chronic pain G89.29 ; Pain in left shoulder M25.512 and Gastroesophageal reflux disease with esophagitis K21.0 [facility] [address] [address]- 6302 Jun, [facility] [id number] [address]- 2559 May, [facility] [address] 4476 May, [facility] [id number] 2126 Apr, [facility] [address] [address]- 1146 Mar, [facility] [id number] [place] [address] 36240- 6604 22 Feb, 2016 [facility] [id number] [place] [address] 33298- 8439 13 Feb, 2016 [facility] [id number] [place] [address] 21148- 4600 12 Feb, 2016 [facility] [id number] [place] [address] 17136- 1830 Feb, [facility] [id number] [place] [address] 41435- 9664 Jan, [facility] [id number] [place] [address] 76777- 9163 Dec, Pain in left shoulder M25.512 [facility] [id number] [place] [address] 24725- 7483 Dec, Gastroesophageal reflux disease, esophagitis presence not specified K21.9 [facility] [id number] [place] [address] 46430- 4935 Nov, Pain in left shoulder M25.512 [facility] [id number] [place] [address] 21041- 5168 October, Pain in left shoulder M25.512 [facility] [id number] [place] [address] 75156- 3374 Sep, Shoulder pain, left M25.512 [facility] [id number] [place] [address] 45939- 3860 Aug, Pain in right shoulder M25.511 and Other chronic pain G89.29 [facility] [id number] [place] [address] 72349- 4062 Aug, Shoulder pain, right M25.511 and GERD (gastroesophageal reflux disease) K21.9 [facility] [id number] [place] [address] 39753- 6873 Nov, [facility] [address] [place] [address]- 1235 14 Sep, 2014 [facility] [place] [facility] [address] [id number] [place] [address]- 4494 13 Sep, 2014 [facility] [place] [facility] [address] [id number] [place] [address]- 7226 23 Jul, 2014 [facility] [place] [facility] [address] [id number] [place] [address]- 7526 Jul, 2014 [facility] [place] [facility] [address] [id number] [place] [address]- 0873 Jul, 2014 [facility] [place] [facility] [address] [id number] [place] [address]- 1651 Jul, 2014 [facility] [place] [facility] [address] [id number] [place] [address]- 3899 Jul, [facility] [place] [facility] [address] [id number] [place] [address]- 2366 Jul, [facility] [place] [facility] [address] [id number] [place] [address]- 0095 Jun, [facility] [place] [facility] [address] [id number] [place] [address]- 0605 Jun, [facility] [place] [facility] [address] [facility] [id number] [place] [address]- 9442 Apr, [facility] [place] [facility] [address] [id number] [place] [address]- 2841 Apr, [facility] [place] [facility] [address] [id number] [place] [address]- 0168 Apr, [facility] [place] [facility] [address] [id number] [place] [address]- 8384 Feb, [facility] [place] [facility] [address] [id number] [place] [address]- 2746 Feb, [facility] [place] [facility] [address] [id number] [place] [address]- 1633 Feb, [facility] [place] [facility] [address] [id number] [place] [address]- 6658 Feb, [facility] [place] [facility] [address] [id number] [place] [address]- 4428 Aug, [facility] [place] [facility] [address] [id number] [place] [address]- 7204 Aug, [facility] [place] [facility] [address] [id number] [place] [address]- 5186 Mar, [facility] [place] [facility] [address] [id number] [place] [address]- 6576 Mar, [facility] [place] [facility] [address] [id number] [place] [address]- 4226 Mar, [facility] [place] [facility] [address] [id number] [place] [address]- 0809 Mar, [facility] [place] [facility] [address] [id number] [place] [address]- 9640 Feb, [facility] [place] [facility] [address] [id number] [place] [address]- 6803 06 Feb, 2013 [facility] [place] [facility] [address] [id number] [place] [address]- 4284 Feb, [facility] [place] [facility] [address] [id number] [place] [address]- 3616 Jan, [facility] [place] [facility] [address] [id number] [place] [address]- 8391 Jan, [facility] [place] [facility] [address] [id number] [place] [address]- 7953 Dec, [facility] [place] [facility] [address] [id number] [place] [address]- 7579 Dec, [facility] [place] [facility] [address] [id number] [place] [address]- 0955 Nov, [facility] [place] [facility] [id number] [address]- 2546 14 Nov, 2012 [facility] [address] [address]- 4306 Jan, [facility] [address] [address]- 2546 Jan, [facility] [address] [address]- 2546 Aug, [facility] [address] [address]- 2546 Jun, [facility] [address] [address]- 9706 Jun, [facility] [address] [address]- 8486 Apr, [facility] [id number] [address]- 8957 17 Feb, 2010 IMMUNIZATIONS No Known Immunizations SOCIAL HISTORY Never Assessed REASON FOR VISIT PLAN OF CARE VITAL SIGNS MEDICATIONS Unknown Medications RESULTS No Results PROCEDURES No Known procedures INSTRUCTIONS MEDICATIONS ADMINISTERED No Known Medications MEDICAL (GENERAL) HISTORY Type Description Date Medical History colitis Medical History right shoulder pain Surgical History Appendectomy Surgical History Abscess drained and removed Hospitalization History surgery Hospitalization History dehydration Hospitalization History chest pain, pancytopenia, slenomegaly-[facility] 10/25/17
--- OUTSIDE RECORDS SUMMARY | 2018-06-13 15:45 | XMS REPORT ---
Author Author AMY HALEY Organization [facility] Address [address] [place] [address] Care Team Providers Care Unified Communications Architect Name Role Phone AMY HALEY Unavailable PROBLEMS Type Condition ICD9-CM Code ORK57-DF Code Onset Dates Condition Status SNOMED Code Problem GERD with esophagitis K21.0 Active 132773742 Problem Morbid (severe) obesity due to excess calories E66.01 Active 36397005815497 Problem Essential hypertension I10 Active 91869794 Problem Other chronic pain G89.29 Active 79646943 Problem Gastroesophageal reflux disease with esophagitis K21.0 Active 442664836 Problem Other ulcerative colitis without complication K51.80 Active 83366808 Problem Pancytopenia D61.818 Active 796788053 Problem Temporary low platelet count D69.6 Active 032076548 Problem Body mass index (BMI) of 40.0-44.9 in adult Z68.41 Active 295433855 Problem Body mass index (BMI) of 45.0-49.9 in adult Z68.42 Active 194731675 Problem Neutropenia, unspecified type D70.9 Active 969708457 Problem Other chronic pain G89.29 Active 31645483 ALLERGIES No Information ENCOUNTERS Encounter Location Date Diagnosis [facility] [id number] [place] [address] 65246- 9272 Dec, Other chronic pain G89.29 [facility] [id number] [place] [address] 37726- 5025 Nov, Other chronic pain G89.29 [facility] [id number] [place] [address] 16445- 0014 Nov, [facility] [id number] [place] [address] 06776- 6866 Nov, [facility] [id number] [place] [address] 70819- 1111 October, Other chronic pain G89.29 ; Pain in right knee M25.561 ; Pain in left knee M25.562 and Abdominal pain, left lower quadrant R10.32 [facility] [id number] [place] [address] 11618- 7136 October, [facility] [id number] [place] [address] 22270- 7061 October, Splenomegaly R16.1 ; Neutropenia, unspecified type D70.9 and Temporary low platelet count D69.6 [facility] [id number] [place] [address] 22144 -2852 October, [facility] [id number] [place] [address] 95525- 6683 October, Pancytopenia D61.818 [facility] [id number] [place] [address] 57269- 5143 October, [facility] [id number] [place] [address] 34830- 6056 October, [facility] [id number] [place] [address] 66146- 6830 October, Pancytopenia D61.818 [facility] [id number] [place] [address] 38837- 8185 Sep, Other chronic pain G89.29 ; Pain in left knee M25.562 ; Pain in right knee M25.561 and Abdominal pain, left lower quadrant R10.32 [facility] [id number] [place] [address] 86891- 4455 Sep, Edema of left lower extremity R60.0 ; Essential hypertension I10 ; Morbid (severe) obesity due to excess calories E66.01 ; Body mass index (BMI) of 40.0-44.9 in adult Z68.41 and Hiatal hernia K44.9 [facility] [id number] [place] [address] 21539- 2479 Aug, [facility] [id number] [place] [address] 15226- 1640 Aug, [facility] [id number] [place] [address] 92138- 5088 Jul, Pain in right shoulder M25.511 [facility] [id number] [place] [address] 68945- 5363 Jul, [facility] [address] 71693 -8207 Jul, Localized edema R60.0 and BMI 40.0-44.9, adult Z68.41 [facility] [address] 45350- 7017 Jul, [facility] [address] 26428- 3348 Jun, Edema of left lower extremity R60.0 ; Essential hypertension I10 ; Family history of coronary artery disease Z82.49 ; Morbid ( severe) obesity due to excess calories E66.01 and Body mass index (BMI) of 45.0- 49.9 in adult Z68.42 [facility] [id number] [place] [address] 99080- 9789 Jun, Other chronic pain G89.29 [facility] [id number] [place] [address] 69060- 9340 Jun, Pain in right shoulder M25.511 [facility] [id number] [place] [address] 31850- 0851 Jun, Other ulcerative colitis without complication K51.80 [facility] [id number] [place] [address] 30323 -7549 May, [facility] [id number] [place] [address] 10003- 8990 May, GERD with esophagitis K21.0 ; Other ulcerative colitis without complication K51.80 and Other chest pain R07.89 [facility] [address] [facility] [id number] [address] May, [facility] [id number] [place] [address] 69583 -8246 May, Left leg swelling M79.89 [facility] [id number] [place] [address] 63208- 4166 Apr, Pain in right shoulder M25.511 [facility] [id number] [place] [address] 23858- 5226 Apr, Pain in right shoulder M25.511 [facility] [id number] [place] [address] 61006- 4686 Mar, [facility] [id number] [place] [address] 16443- 3296 Mar, Pain in right shoulder M25.511 [facility] [id number] [place] [address] 42668- 7355 Mar, [facility] [id number] [place] [address] 20307- 9065 Mar, [facility] [id number] [place] [address] 62348- 3166 Feb, Pain in right shoulder M25.511 [facility] [id number] [place] [address] 90694- 3076 Jan, Pain in right shoulder M25.511 [facility] [address] [address]- 9156 Jan, [facility] [id number] [place] [address] 97363- 6055 Dec, Pain in right shoulder M25.511 [facility] [id number] [address]- 7926 Nov, Pain in right shoulder M25.511 [facility] [id number] [place] [address] 07902- 2864 Nov, Pain in right shoulder M25.511 [facility] [address] [address]- 8227 October, Pain in right shoulder M25.511 [facility] [id number] 8816 Sep, Pain in right shoulder M25.511 [facility] [id number] [place] [address] 17043- 9965 Aug, Pain in right shoulder M25.511 [facility] [address] [place] [address] 85388- 5138 Jul, Pain in right shoulder M25.511 [facility] [id number] [place] [address] 65018- 8797 Jul, Pain in left shoulder M25.512 [facility] [id number] [address]- 5043 Jul, Other chronic pain G89.29 [facility] [id number] [address]- 0857 Jul, Pain in right shoulder M25.511 ; Other chronic pain G89.29 ; Pain in left shoulder M25.512 and Gastroesophageal reflux disease with esophagitis K21.0 [facility] [address] [address]- 4102 Jun, [facility] [id number] [address]- 3975 May, [facility] [address] 0866 May, [facility] [id number]- 7686 Apr, [facility] [address] [address]- 9996 Mar, [facility] [id number] [place] [address] 37977- 2193 22 Feb, 2016 [facility] [id number] [place] [address] 29468- 9913 13 Feb, 2016 [facility] [id number] [place] [address] 99690- 4292 12 Feb, 2016 [facility] [id number] [place] [address] 97569- 4824 Feb, [facility] [id number] [place] [address] 95115- 3035 Jan, [facility] [id number] [place] [address] 60709- 9060 Dec, Pain in left shoulder M25.512 [facility] [id number] [place] [address] 83628- 2847 Dec, Gastroesophageal reflux disease, esophagitis presence not specified K21.9 [facility] [id number] [place] [address] 09752- 8475 Nov, Pain in left shoulder M25.512 [facility] [id number] [place] [address] 45703- 8436 October, Pain in left shoulder M25.512 [facility] [id number] [place] [address] 50593- 1092 Sep, Shoulder pain, left M25.512 [facility] [id number] [place] [address] 43379- 4786 Aug, Pain in right shoulder M25.511 and Other chronic pain G89.29 [facility] [id number] [place] [address] 30464- 2091 Aug, Shoulder pain, right M25.511 and GERD (gastroesophageal reflux disease) K21.9 [facility] [id number] [place] [address] 70276- 2521 Nov, [facility] [address] [place] [address]- 9948 14 Sep, 2014 [facility] [place] [facility] [address] [id number] [place] [address]- 8588 13 Sep, 2014 [facility] [place] [facility] [address] [id number] [place] [address]- 3046 23 Jul, 2014 [facility] [place] [facility] [address] [id number] [place] [address]- 2346 Jul, 2014 [facility] [place] [facility] [address] [id number] [place] [address]- 7815 Jul, 2014 [facility] [place] [facility] [address] [id number] [place] [address]- 0001 Jul, 2014 [facility] [place] [facility] [address] [id number] [place] [address]- 8787 Jul, [facility] [place] [facility] [address] [id number] [place] [address]- 3269 Jul, [facility] [place] [facility] [address] [id number] [place] [address]- 3868 Jun, [facility] [place] [facility] [address] [id number] [place] [address]- 4048 Jun, [facility] [place] [facility] [address] [facility] [id number] [place] [address]- 8229 Apr, [facility] [place] [facility] [address] [id number] [place] [address]- 2786 Apr, [facility] [place] [facility] [address] [id number] [place] [address]- 9708 Apr, [facility] [place] [facility] [address] [id number] [place] [address]- 2889 Feb, [facility] [place] [facility] [address] [id number] [place] [address]- 7905 Feb, [facility] [place] [facility] [address] [id number] [place] [address]- 1330 Feb, [facility] [place] [facility] [address] [id number] [place] [address]- 8950 Feb, [facility] [place] [facility] [address] [id number] [place] [address]- 0578 Aug, [facility] [place] [facility] [address] [id number] [place] [address]- 6207 Aug, [facility] [place] [facility] [address] [id number] [place] [address]- 0838 Mar, [facility] [place] [facility] [address] [id number] [place] [address]- 1218 Mar, [facility] [place] [facility] [address] [id number] [place] [address]- 1432 Mar, [facility] [place] [facility] [address] [id number] [place] [address]- 0818 Mar, [facility] [place] [facility] [address] [id number] [place] [address]- 5840 Feb, [facility] [place] [facility] [address] [id number] [place] [address]- 9749 06 Feb, 2013 [facility] [place] [facility] [address] [id number] [place] [address]- 2306 Feb, [facility] [place] [facility] [address] [id number] [place] [address]- 8720 Jan, [facility] [place] [facility] [address] [id number] [place] [address]- 0066 Jan, [facility] [place] [facility] [address] [id number] [place] [address]- 3507 Dec, [facility] [place] [facility] [address] [id number] [place] [address]- 4659 Dec, [facility] [place] [facility] [address] [id number] [place] [address]- 6084 Nov, [facility] [place] [facility] [id number] [address]- 2546 14 Nov, 2012 [facility] [id number] [address]- 8566 15 Jan, 2012 [facility] [id number] [address]- 2546 Jan, [facility] [address] [address]- 2546 Aug, [facility] [address] [address]- 2546 Jun, [facility] [address] [address]- 9556 Jun, [facility] [address] [address]- 4076 Apr, [facility] [id number] [address]- 3926 17 Feb, 2010 IMMUNIZATIONS No Known Immunizations SOCIAL HISTORY Never Assessed REASON FOR VISIT Xray (walk-in) MHill RT(R) PLAN OF CARE VITAL SIGNS MEDICATIONS Unknown Medications RESULTS Name Result Date Reference Range Xray : Knee, Right 3 views (IN HOUSE) 2017-11-17 PROCEDURES Procedure Date Ordered Result Body Site X-RAY EXAM OF KNEE, 3 November 17, 2017 INSTRUCTIONS MEDICATIONS ADMINISTERED No Known Medications MEDICAL (GENERAL) HISTORY Type Description Date Medical History colitis Medical History right shoulder pain Surgical History Appendectomy Surgical History Abscess drained and removed Hospitalization History surgery Hospitalization History dehydration Hospitalization History chest pain, pancytopenia, slenomegaly-[facility] 10/25/17
--- OUTSIDE RECORDS SUMMARY | 2018-06-13 15:45 | XMS REPORT ---
Author Author AMY HALEY Organization [facility] Address [address] [place] [address] Care Team Providers Care Nurse [facility] Name Role Phone AMY HALEY Unavailable PROBLEMS Type Condition ICD9-CM Code WHN93-GL Code Onset Dates Condition Status SNOMED Code Problem GERD with esophagitis K21.0 Active 764098852 Problem Morbid (severe) obesity due to excess calories E66.01 Active 37787363055978 Problem Essential hypertension I10 Active 73862035 Problem Other chronic pain G89.29 Active 54502984 Problem Gastroesophageal reflux disease with esophagitis K21.0 Active 108079866 Problem Other ulcerative colitis without complication K51.80 Active 65249468 Problem Pancytopenia D61.818 Active 680821053 Problem Temporary low platelet count D69.6 Active 148748314 Problem Body mass index (BMI) of 40.0-44.9 in adult Z68.41 Active 260152228 Problem Body mass index (BMI) of 45.0-49.9 in adult Z68.42 Active 420274600 Problem Neutropenia, unspecified type D70.9 Active 275354481 Problem Other chronic pain G89.29 Active 52253611 ALLERGIES No Information ENCOUNTERS Encounter Location Date Diagnosis [facility] [id number] [place] [address] 33296- 1372 Dec, Other chronic pain G89.29 [facility] [id number] [place] [address] 17429- 7313 Nov, Other chronic pain G89.29 [facility] [id number] [place] [address] 96425- 1268 Nov, [facility] [id number] [place] [address] 40575- 8587 Nov, [facility] [id number] [place] [address] 26919- 6923 October, Other chronic pain G89.29 ; Pain in right knee M25.561 ; Pain in left knee M25.562 and Abdominal pain, left lower quadrant R10.32 [facility] [id number] [place] [address] 81356- 3204 October, [facility] [id number] [place] [address] 78819- 6118 October, Splenomegaly R16.1 ; Neutropenia, unspecified type D70.9 and Temporary low platelet count D69.6 [facility] [id number] [place] [address] 56688 -7406 October, [facility] [id number] [place] [address] 83714- 3826 October, Pancytopenia D61.818 [facility] [id number] [place] [address] 45688- 1448 October, [facility] [id number] [place] [address] 65749- 2585 October, [facility] [id number] [place] [address] 88296- 5077 October, Pancytopenia D61.818 [facility] [id number] [place] [address] 59670- 6912 Sep, Other chronic pain G89.29 ; Pain in left knee M25.562 ; Pain in right knee M25.561 and Abdominal pain, left lower quadrant R10.32 [facility] [id number] [place] [address] 90264- 8285 Sep, Edema of left lower extremity R60.0 ; Essential hypertension I10 ; Morbid (severe) obesity due to excess calories E66.01 ; Body mass index (BMI) of 40.0-44.9 in adult Z68.41 and Hiatal hernia K44.9 [facility] [id number] [place] [address] 47849- 2222 Aug, [facility] [id number] [place] [address] 29647- 1621 Aug, [facility] [id number] [place] [address] 55397- 5324 Jul, Pain in right shoulder M25.511 [facility] [id number] [place] [address] 59206- 6161 Jul, [facility] [address] 12867 -3966 Jul, Localized edema R60.0 and BMI 40.0-44.9, adult Z68.41 [facility] [address] 17862- 9289 Jul, [facility] [address] 76061- 8643 Jun, Edema of left lower extremity R60.0 ; Essential hypertension I10 ; Family history of coronary artery disease Z82.49 ; Morbid ( severe) obesity due to excess calories E66.01 and Body mass index (BMI) of 45.0- 49.9 in adult Z68.42 [facility] [id number] [place] [address] 31400- 5745 Jun, Other chronic pain G89.29 [facility] [id number] [place] [address] 09832- 5649 Jun, Pain in right shoulder M25.511 [facility] [id number] [place] [address] 64652- 7913 Jun, Other ulcerative colitis without complication K51.80 [facility] [id number] [place] [address] 17354 -7072 May, [facility] [id number] [place] [address] 06900- 7855 May, GERD with esophagitis K21.0 ; Other ulcerative colitis without complication K51.80 and Other chest pain R07.89 [facility] [address] [facility] [id number] [address]42 May, [facility] [id number] [place] [address] 21929 -5236 May, Left leg swelling M79.89 [facility] [id number] [place] [address] 60198- 2336 Apr, Pain in right shoulder M25.511 [facility] [id number] [place] [address] 65683- 6599 Apr, Pain in right shoulder M25.511 [facility] [id number] [place] [address] 10558- 2976 Mar, [facility] [id number] [place] [address] 86637- 0010 Mar, Pain in right shoulder M25.511 [facility] [id number] [place] [address] 26323- 9574 Mar, [facility] [id number] [place] [address] 90085- 0041 Mar, [facility] [id number] [place] [address] 18107- 1966 Feb, Pain in right shoulder M25.511 [facility] [id number] [place] [address] 27823- 8906 Jan, Pain in right shoulder M25.511 [facility] [address] [address]- 1706 Jan, [facility] [id number] [place] [address] 31706- 6892 Dec, Pain in right shoulder M25.511 [facility] [id number] [address]- 0676 Nov, Pain in right shoulder M25.511 [facility] [id number] [place] [address] 63326- 1881 Nov, Pain in right shoulder M25.511 [facility] [address] [address]- 4196 October, Pain in right shoulder M25.511 [facility] [id number] 5436 Sep, Pain in right shoulder M25.511 [facility] [id number] [place] [address] 63691- 3138 Aug, Pain in right shoulder M25.511 [facility] [address] [place] [address] 82433- 5440 Jul, Pain in right shoulder M25.511 [facility] [id number] [place] [address] 48836- 4864 Jul, Pain in left shoulder M25.512 [facility] [id number] [address]- 6894 Jul, Other chronic pain G89.29 [facility] [id number] [address]- 3335 Jul, Pain in right shoulder M25.511 ; Other chronic pain G89.29 ; Pain in left shoulder M25.512 and Gastroesophageal reflux disease with esophagitis K21.0 [facility] [address] [address]- 0633 Jun, [facility] [id number] [address]- 3160 May, [facility] [address] 6826 May, [facility] [id number] 4016 Apr, [facility] [address] [address]- 8976 Mar, [facility] [id number] [place] [address] 34766- 8011 22 Feb, 2016 [facility] [id number] [place] [address] 55767- 8103 13 Feb, 2016 [facility] [id number] [place] [address] 15711- 8899 12 Feb, 2016 [facility] [id number] [place] [address] 53190- 5764 Feb, [facility] [id number] [place] [address] 32144- 5208 Jan, [facility] [id number] [place] [address] 77819- 9070 Dec, Pain in left shoulder M25.512 [facility] [id number] [place] [address] 89214- 4540 Dec, Gastroesophageal reflux disease, esophagitis presence not specified K21.9 [facility] [id number] [place] [address] 17587- 8285 Nov, Pain in left shoulder M25.512 [facility] [id number] [place] [address] 35669- 0515 October, Pain in left shoulder M25.512 [facility] [id number] [place] [address] 18128- 9098 Sep, Shoulder pain, left M25.512 [facility] [id number] [place] [address] 61948- 2727 Aug, Pain in right shoulder M25.511 and Other chronic pain G89.29 [facility] [id number] [place] [address] 64218- 6590 Aug, Shoulder pain, right M25.511 and GERD (gastroesophageal reflux disease) K21.9 [facility] [id number] [place] [address] 91022- 9670 Nov, [facility] [address] [place] [address]- 9077 14 Sep, 2014 [facility] [place] [facility] [address] [id number] [place] [address]- 2124 13 Sep, 2014 [facility] [place] [facility] [address] [id number] [place] [address]- 8086 23 Jul, 2014 [facility] [place] [facility] [address] [id number] [place] [address]- 3566 Jul, 2014 [facility] [place] [facility] [address] [id number] [place] [address]- 2347 Jul, 2014 [facility] [place] [facility] [address] [id number] [place] [address]- 6620 Jul, 2014 [facility] [place] [facility] [address] [id number] [place] [address]- 0436 Jul, [facility] [place] [facility] [address] [id number] [place] [address]- 2541 Jul, [facility] [place] [facility] [address] [id number] [place] [address]- 8759 Jun, [facility] [place] [facility] [address] [id number] [place] [address]- 7178 Jun, [facility] [place] [facility] [address] [facility] [id number] [place] [address]- 6166 Apr, [facility] [place] [facility] [address] [id number] [place] [address]- 6159 Apr, [facility] [place] [facility] [address] [id number] [place] [address]- 1308 Apr, [facility] [place] [facility] [address] [id number] [place] [address]- 3972 Feb, [facility] [place] [facility] [address] [id number] [place] [address]- 6293 Feb, [facility] [place] [facility] [address] [id number] [place] [address]- 0889 Feb, [facility] [place] [facility] [address] [id number] [place] [address]- 1582 Feb, [facility] [place] [facility] [address] [id number] [place] [address]- 2270 Aug, [facility] [place] [facility] [address] [id number] [place] [address]- 5652 Aug, [facility] [place] [facility] [address] [id number] [place] [address]- 7549 Mar, [facility] [place] [facility] [address] [id number] [place] [address]- 2874 Mar, [facility] [place] [facility] [address] [id number] [place] [address]- 9202 Mar, [facility] [place] [facility] [address] [id number] [place] [address]- 2541 Mar, [facility] [place] [facility] [address] [id number] [place] [address]- 0234 Feb, [facility] [place] [facility] [address] [id number] [place] [address]- 0992 06 Feb, 2013 [facility] [place] [facility] [address] [id number] [place] [address]- 8843 Feb, [facility] [place] [facility] [address] [id number] [place] [address]- 5266 Jan, [facility] [place] [facility] [address] [id number] [place] [address]- 1667 Jan, [facility] [place] [facility] [address] [id number] [place] [address]- 8998 Dec, [facility] [place] [facility] [address] [id number] [place] [address]- 6067 Dec, [facility] [place] [facility] [address] [id number] [place] [address]- 1624 Nov, [facility] [place] [facility] [id number] [address]- 9266 14 Nov, 2012 [facility] [address] [address]- 1101 Jan, [facility] [address] [address]- 2206 Jan, [facility] [address] [address]- 3746 Aug, [facility] [address] [address]- 5066 Jun, [facility] [address] [address]- 7438 Jun, [facility] [address] [address]- 1067 Apr, [facility] [id number] [address]- 5812 17 Feb, 2010 IMMUNIZATIONS No Known Immunizations SOCIAL HISTORY Never Assessed REASON FOR VISIT Requests return call// PLAN OF CARE VITAL SIGNS MEDICATIONS Unknown Medications RESULTS No Results PROCEDURES No Known procedures INSTRUCTIONS MEDICATIONS ADMINISTERED No Known Medications MEDICAL (GENERAL) HISTORY Type Description Date Medical History colitis Medical History right shoulder pain Surgical History Appendectomy Surgical History Abscess drained and removed Hospitalization History surgery Hospitalization History dehydration Hospitalization History chest pain, pancytopenia, slenomegaly-[facility] 10/25/17
--- OUTSIDE RECORDS SUMMARY | 2018-06-13 15:45 | XMS REPORT ---
Author Author AMY HALEY Organization [facility] Address [address] [place] [address] Care Team Providers Care Cinder Block Mason Name Role Phone AMY HALEY Unavailable PROBLEMS Type Condition ICD9-CM Code PWH74-WT Code Onset Dates Condition Status SNOMED Code Problem GERD with esophagitis K21.0 Active 635793499 Problem Morbid (severe) obesity due to excess calories E66.01 Active 11522480857660 Problem Essential hypertension I10 Active 12683946 Problem Other chronic pain G89.29 Active 56504842 Problem Gastroesophageal reflux disease with esophagitis K21.0 Active 817399326 Problem Other ulcerative colitis without complication K51.80 Active 71280204 Problem Pancytopenia D61.818 Active 362661934 Problem Temporary low platelet count D69.6 Active 208767811 Problem Body mass index (BMI) of 40.0-44.9 in adult Z68.41 Active 050075663 Problem Body mass index (BMI) of 45.0-49.9 in adult Z68.42 Active 021115620 Problem Neutropenia, unspecified type D70.9 Active 741498737 Problem Other chronic pain G89.29 Active 95673811 ALLERGIES Substance Reaction Event Type Date Status Morphine Sulfate nausea and vomiting Drug Allergy October, Active ENCOUNTERS Encounter Location Date Diagnosis [facility] [id number] [place] [address] 13965- 7782 Dec, Other chronic pain G89.29 [facility] [id number] [address] 4[address] Nov, Other chronic pain G89.29 [facility] [id number] [place] [address] 96466- 3167 Nov, [facility] [id number] [place] [address] 49654- 9805 Nov, [place] [id number] [address] October, Other chronic pain G89.29 ; Pain in right knee M25.561 ; Pain in left knee M25.562 and Abdominal pain, left lower quadrant R10.32 [facility] [id number] [place] [address] 76449- 4052 October, [facility] [id number] [place] [address] 88910- 9151 October, Splenomegaly R16.1 ; Neutropenia, unspecified type D70.9 and Temporary low platelet count D69.6 [facility] [id number] [place] [address] 33789 -4676 October, [place] [id number] [place] [address] 59158- 3647 October, Pancytopenia D61.818 [facility] [id number] [place] [address] 32763- 0324 October, [place] [id number] [place] [address] 17500- 6464 October, [place] [facility] [id number] [place] [address] 40654- 0419 October, Pancytopenia D61.818 [facility] [id number] [place] [address] 64180- 0552 Sep, Other chronic pain G89.29 ; Pain in left knee M25.562 ; Pain in right knee M25.561 and Abdominal pain, left lower quadrant R10.32 [facility] [id number] [place] [address] 78143- 8024 Sep, Edema of left lower extremity R60.0 ; Essential hypertension I10 ; Morbid (severe) obesity due to excess calories E66.01 ; Body mass index (BMI) of 40.0-44.9 in adult Z68.41 and Hiatal hernia K44.9 [facility] [id number] [address] 3136 Aug, [facility] [id number] [place] [address] 14727- 4757 Aug, [facility] [id number] [place] [address] 51493- 5991 Jul, Pain in right shoulder M25.511 [place] [address] 34429- 9422 Jul, [facility] [id number] [place] [address] 45742 -5119 Jul, Localized edema R60.0 and BMI 40.0-44.9, adult Z68.41 [place] [place] [id number] [place] [address] 65940- 8908 Jul, [place] [id number] [place] [address] 51959- 0860 Jun, Edema of left lower extremity R60.0 ; Essential hypertension I10 ; Family history of coronary artery disease Z82.49 ; Morbid ( severe) obesity due to excess calories E66.01 and Body mass index (BMI) of 45.0- 49.9 in adult Z68.42 [place] [id number] [place] [address] 61671- 7668 Jun, Other chronic pain G89.29 [facility] [id number] [place] [address] 68558- 2624 Jun, Pain in right shoulder M25.511 [facility] [id number] [place] [address] 37991- 4673 Jun, Other ulcerative colitis without complication K51.80 [facility] [id number] [place] [address] 68983 -3780 May, [place] [facility] [id number] [place] [address] 78267- 4882 May, GERD with esophagitis K21.0 ; Other ulcerative colitis without complication K51.80 and Other chest pain R07.89 [facility] [id number] [address]- 6536 May, [facility] [id number] [place] [address] 05322 -9086 May, Left leg swelling M79.89 [facility] [id number] [place] [address] 43920- 3164 Apr, Pain in right shoulder M25.511 [facility] [id number] [place] [address] 64110- 7198 Apr, Pain in right shoulder M25.511 [facility] [id number] [place] [address] 00420- 0576 Mar, [facility] [id number] [place] [address] 99868- 8132 Mar, Pain in right shoulder M25.511 [facility] [id number] [place] [address] 27239- 4745 Mar, [facility] [id number] [place] [address] 31110- 3351 Mar, [facility] [id number] [place] [address] 26384- 3935 Feb, Pain in right shoulder M25.511 [facility] [id number] [place] [address] 08678- 3090 Jan, Pain in right shoulder M25.511 [facility] [id number] [address]- 2376 Jan, [facility] [id number] [place] [address] 26351- 8056 Dec, Pain in right shoulder M25.511 [facility] [id number] [place] [address] 70531- 3206 Nov, Pain in right shoulder M25.511 [facility] [address] [address]- 4087 Nov, Pain in right shoulder M25.511 [facility] [id number] [place] [address] 46285- 0006 October, Pain in right shoulder M25.511 [facility] [id number] [place] [address] 71940- 8742 Sep, Pain in right shoulder M25.511 [facility] [id number] [place] [address] 51843- 3326 Aug, Pain in right shoulder M25.511 [facility] [id number] [place] [address] 728103- 9699 10 Jul, 2016 Pain in right shoulder M25.511 [facility] [id number] [place] [address] 04243- 7090 Jul, Pain in left shoulder M25.512 [facility] [id number] [address]- 4999 10 Jul, 2016 Other chronic pain G89.29 [facility] [id number] [place] [address] 40752- 8338 09 Jul, 2016 Pain in right shoulder M25.511 ; Other chronic pain G89.29 ; Pain in left shoulder M25.512 and Gastroesophageal reflux disease with esophagitis K21.0 [facility] [address] [address]- 6810 Jun, [facility] [id number] [place] [address] 79722- 1261 May, [facility] [id number] [place] [address] 800404- 2366 May, [facility] [address] [address]- 2525 15 Apr, 2016 [facility] [id number] [place] [address] 41398- 0771 Mar, [facility] [id number] [place] [address] 64398- 2300 22 Feb, 2016 [facility] [id number] [place] [address] 86164- 9025 13 Feb, 2016 [facility] [id number] [place] [address] 90584- 5658 Feb, [facility] [address] 58025- 9877 06 Feb, 2016 [facility] [id number] [place] [address] 67932- 1301 Jan, [facility] [id number] [place] [address] 50309- 0943 Dec, Pain in left shoulder M25.512 [facility] [id number] [place] [address] 79180- 2982 Dec, Gastroesophageal reflux disease, esophagitis presence not specified K21.9 [facility] [id number] [place] [address] 94896- 2523 Nov, Pain in left shoulder M25.512 [facility] [id number] [place] [address] 51726- 7003 October, Pain in left shoulder M25.512 [facility] [id number] [place] [address] 37871- 9887 Sep, Shoulder pain, left M25.512 [facility] [id number] [place] [address] 00096- 1182 Aug, Pain in right shoulder M25.511 and Other chronic pain G89.29 [facility] [id number] [place] [address] 58599- 2815 Aug, Shoulder pain, right M25.511 and GERD (gastroesophageal reflux disease) K21.9 [facility] [id number] [place] [address] 31149- 7483 08 Nov, 2014 [facility] [place] [facility] [address] [id number] [place] [address]- 9631 14 Sep, 2014 [facility] [place] [facility] [address] [id number] [place] [address]- 1666 Sep, [facility] [place] [facility] [address] [id number] [place] [address]- 9457 Jul, [facility] [place] [facility] [address] [id number] [place] [address]- 1774 Jul, [facility] [place] [facility] [address] [id number] [place] [address]- 4467 Jul, [facility] [place] [facility] [address] [id number] [place] [address]- 3316 Jul, [facility] [place] [facility] [address] [id number] [place] [address]- 8672 Jul, [facility] [place] [facility] [address] [id number] [place] [address]- 9013 Jul, [facility] [place] [facility] [address] [id number] [place] [address]- 8433 Jun, [facility] [place] [facility] [address] [id number] [place] [address]- 2407 Jun, [facility] [place] [facility] [address] [id number] [place] [address]- 4925 Apr, [facility] [place] [facility] [address] [id number] [address]- 4845 Apr, [facility] [place] [facility] [address] [id number] [place] [address]- 2689 Apr, [facility] [place] [facility] [address] [id number] [place] [address]- 6536 Feb, [facility] [place] [facility] [address] [id number] [place] [address]- 1083 Feb, [facility] [place] [facility] [address] [id number] [place] [address]- 8036 11 Feb, 2014 [facility] [address] [id number] [place] [address]- 8876 11 Feb, 2014 [facility] [place] [facility] [address] [id number] [place] [address]- 3045 Aug, [facility] [place] [facility] [address] [id number] [place] [address]- 3506 Aug, [facility] [place] [facility] [address] [id number] [place] [address]- 4891 Mar, [facility] [address] [id number] [place] [address]- 5659 Mar, [facility] [place] [facility] [address] [id number] [place] [address]- 9342 Mar, [facility] [address] [id number] [place] [address]- 3370 Mar, [facility] [address] [id number] [place] [address]- 4059 09 Feb, 2013 [facility] [place] [facility] [address] [id number] [place] [address]- 8061 06 Feb, 2013 [facility] [place] [facility] [address] [id number] [place] [address]- 3861 03 Feb, 2013 [facility] [place] [facility] [address] [id number] [place] [address]- 8793 30 Jan, 2013 [facility] [place] [facility] [address] [id number] [place] [address]- 6421 Jan, [facility] [place] [facility] [address] [id number] [place] [address]- 9579 Dec, [facility] [place] [facility] [address] [id number] [place] [address] 2544 15 Dec, 2012 [facility] [place] [facility] [address] [id number] [place] [address]- 7108 Nov, [facility] [address] [facility] [id number] [address]- 1258 Nov, [facility] [id number] [address]- 2416 Jan, [facility] [id number] [address]- 5346 Jan, [facility] [address] [address] 2546 Aug, [facility] [id number] [address]- 2294 Jun, [facility] [address] [address]- 4596 Jun, [facility] [address] [address]- 1241 Apr, [facility] [id number] [address]- 1596 Feb, IMMUNIZATIONS No Known Immunizations SOCIAL HISTORY Never Assessed REASON FOR VISIT [facility]17 [facility] for chest pain PLAN OF CARE VITAL SIGNS Height 69 in 2017-11-01 Weight 269 lbs 2017-11-01 Temperature 98.6 degrees Fahrenheit 2017-11-01 Heart Rate 86 bpm 2017-11-01 Respiratory Rate 18 2017-11-01 BMI 39.72 kg/m2 2017-11-01 Blood pressure systolic 124 mmHg 2017-11-01 Blood pressure diastolic 84 mmHg 2017-11-01 MEDICATIONS Medication Instructions Dosage Frequency Start Date End Date Duration Status Protonix 40 mg 1 tablet 24h Not-Taking Doxycycline Hyclate 100 mg Orally twice a day 1 tablet 12h October, October, Active Tylenol Extra Strength 500 mg Orally every 6 hrs 2 tablets as needed 6h Active Mens Daily Formula/Lycopene - Active [place] 5-325 MG Orally every 6 hrs 1 tablet as needed 6h Sep, Not-Taking Carafate 1 GM Orally 4 times a day 1 tablet at bedtime on an empty stomach before meals 6h Active RESULTS No Results PROCEDURES No Known procedures INSTRUCTIONS MEDICATIONS ADMINISTERED No Known Medications MEDICAL (GENERAL) HISTORY Type Description Date Medical History colitis Medical History right shoulder pain Surgical History Appendectomy Surgical History Abscess drained and removed Hospitalization History surgery Hospitalization History dehydration Hospitalization History chest pain, pancytopenia, slenomegaly-[facility] 10/25/17
--- OUTSIDE RECORDS SUMMARY | 2018-06-13 15:46 | XMS REPORT ---
Author Author REDDY ROQUE [facility] Address [address] [place] [address] Care Team Providers Care Pet Ambassador Name Role Phone REDDY ROQUE Unavailable PROBLEMS Type Condition ICD9-CM Code MYV19-CQ Code Onset Dates Condition Status SNOMED Code Problem GERD with esophagitis K21.0 Active 638518853 Problem Morbid (severe) obesity due to excess calories E66.01 Active 14204428986158 Problem Essential hypertension I10 Active 88969528 Problem Other chronic pain G89.29 Active 84510394 Problem Gastroesophageal reflux disease with esophagitis K21.0 Active 284990703 Problem Other ulcerative colitis without complication K51.80 Active 47160445 Problem Pancytopenia D61.818 Active 216925766 Problem Temporary low platelet count D69.6 Active 070241357 Problem Body mass index (BMI) of 40.0-44.9 in adult Z68.41 Active 427743330 Problem Body mass index (BMI) of 45.0-49.9 in adult Z68.42 Active 077750227 Problem Neutropenia, unspecified type D70.9 Active 207899487 Problem Other chronic pain G89.29 Active 22932810 ALLERGIES No Information ENCOUNTERS Encounter Location Date Diagnosis [facility] [id number], [place] [address] Dec, Other chronic pain G89.29 [facility] [id number], [place] [address] Nov, Other chronic pain G89.29 [facility] [id number], [place] [address] Nov, [facility] [id number], [place] [address] Nov, [facility] [id number] [place] [address] 49376- 0660 October, Other chronic pain G89.29 ; Pain in right knee M25.561 ; Pain in left knee M25.562 and Abdominal pain, left lower quadrant R10.32 [facility] [id number] [place] [address] 83408- 2339 October, [facility] [id number] [place] [address] 78100- 4255 October, Splenomegaly R16.1 ; Neutropenia, unspecified type D70.9 and Temporary low platelet count D69.6 [facility] [id number] [place] [address] 69317 -3771 October, [facility] [id number] [place] [address] 97247- 6897 October, Pancytopenia D61.818 [facility] [id number] [place] [address] 84376- 2171 October, [facility] [id number] [place] [address] 60848- 1067 October, [facility] [id number] [place] [address] 27630- 9974 October, Pancytopenia D61.818 [facility] [id number] [place] [address] 28443- 3490 Sep, Other chronic pain G89.29 ; Pain in left knee M25.562 ; Pain in right knee M25.561 and Abdominal pain, left lower quadrant R10.32 [place] [id number] [place] [address] 63162- 3665 Sep, Edema of left lower extremity R60.0 ; Essential hypertension I10 ; Morbid (severe) obesity due to excess calories E66.01 ; Body mass index (BMI) of 40.0-44.9 in adult Z68.41 and Hiatal hernia K44.9 [facility] [id number] [place] [address] 58952- 8137 Aug, [place] [id number] [place] [address] 94610- 8368 Aug, [place] [address] [address]181- 8924 Jul, Pain in right shoulder M25.511 [place] [address] 16518- 3636 Jul, [facility] [place] [id number] [place] [address] 72473 -3178 Jul, Localized edema R60.0 and BMI 40.0-44.9, adult Z68.41 [place] [address] 27094- 1549 Jul, [place] [id number] [place] [address] 17679- 1626 Jun, Edema of left lower extremity R60.0 ; Essential hypertension I10 ; Family history of coronary artery disease Z82.49 ; Morbid ( severe) obesity due to excess calories E66.01 and Body mass index (BMI) of 45.0- 49.9 in adult Z68.42 [place] [id number] [place] [address] 53194- 3593 Jun, Other chronic pain G89.29 [place] [id number] [place] [address] 26966- 2929 Jun, Pain in right shoulder M25.511 [place] [id number] [place] [address] 29250- 5339 Jun, Other ulcerative colitis without complication K51.80 [facility] [place] [id number] [place] [address] 77274 -6132 May, [place] [id number] [place] [address] 97541- 4224 May, GERD with esophagitis K21.0 ; Other ulcerative colitis without complication K51.80 and Other chest pain R07.89 [facility] [address], [place] [address] May, [facility] [id number] [place] [address] 54714 2546 May, Left leg swelling M79.89 [facility] [id number] [place] [address] 31940- 3586 Apr, Pain in right shoulder M25.511 [facility] [id number] [place] [address] 53283- 7452 Apr, Pain in right shoulder M25.511 [facility] [id number] [place] [address] 16361- 8986 Mar, [facility] [id number] [place] [address] 33908- 9331 Mar, Pain in right shoulder M25.511 [facility] [id number] [place] [address] 36705- 5452 Mar, [facility] [id number] [place] [address] 14671- 5610 Mar, [facility] [id number] [place] [address] 36089- 0331 Feb, Pain in right shoulder M25.511 [facility] [id number] [place] [address] 47646- 8202 Jan, Pain in right shoulder M25.511 [facility] [id number] [address] 2[address] Jan, [facility] [id number] [place] [address] 85921- 8839 Dec, Pain in right shoulder M25.511 [facility] [id number] [place] [address] 76718 2546 Nov, Pain in right shoulder M25.511 [facility] [id number] [place] [address] 59213- 8781 Nov, Pain in right shoulder M25.511 [facility] [id number] [place] [address] 45222- 1183 October, Pain in right shoulder M25.511 [facility] [id number] [place] [address] 32430- 6041 Sep, Pain in right shoulder M25.511 [facility] [id number] [place] [address] 89444- 0816 Aug, Pain in right shoulder M25.511 [facility] [id number] [place] [address] 80099- 4751 Jul, Pain in right shoulder M25.511 [facility] [id number] [place] [address] 00837- 0192 Jul, Pain in left shoulder M25.512 [facility] [id number] [place] [address] 42409- 7223 Jul, Other chronic pain G89.29 [facility] [id number] [place] [address] 52000- 8537 Jul, Pain in right shoulder M25.511 ; Other chronic pain G89.29 ; Pain in left shoulder M25.512 and Gastroesophageal reflux disease with esophagitis K21.0 [facility] [id number] [place] [address] 30973- 3739 Jun, [facility] [id number] [place] [address] 47353- 7176 May, [facility] [id number] [place] [address] 34734- 3092 May, [facility] [id number] [place] [address] 46947- 7238 15 Apr, 2016 [facility] [id number] [place] [address] 20039- 5804 Mar, [facility] [address], [place] [address]- 1714 22 Feb, 2016 [facility] [id number] [place] [address] 37443- 1750 13 Feb, 2016 [facility] [address], [place] [address]- 0920 12 Feb, 2016 [facility] [id number] [place] [address] 74688- 1083 06 Feb, 2016 [facility] [id number] [place] [address] 42356- 3576 Jan, [facility] [id number] [place] [address] 41373- 0313 Dec, Pain in left shoulder M25.512 [facility] [id number] [place] [address] 18872- 9865 Dec, Gastroesophageal reflux disease, esophagitis presence not specified K21.9 [facility] [id number] [place] [address] 89258- 7292 Nov, Pain in left shoulder M25.512 [facility] [id number] [place] [address] 33322- 5117 October, Pain in left shoulder M25.512 [facility] [id number] [place] [address] 42985- 9685 Sep, Shoulder pain, left M25.512 [facility] [address] [place] [address] 79964- 2686 Aug, Pain in right shoulder M25.511 and Other chronic pain G89.29 [facility] [id number] [place] [address] 56343- 1742 Aug, Shoulder pain, right M25.511 and GERD (gastroesophageal reflux disease) K21.9 [facility] [address], [place] [address]- 7546 Nov, [facility] [address] [place] [address]- 8517 14 Sep, 2014 [facility] [place] [facility] [address] [id number] [place] [address]- 5349 13 Sep, 2014 [facility] [place] [facility] [address] [id number] [place] [address]- 9553 Jul, 2014 [facility] [place] [facility] [address] [id number] [place] [address]- 7903 Jul, 2014 [facility] [place] [facility] [address] [id number] [place] [address]- 1539 Jul, 2014 [facility] [place] [facility] [address] [id number] [place] [address]- 4215 Jul, 2014 [facility] [place] [facility] [address] [id number] [place] [address]- 7638 Jul, [facility] [place] [facility] [address] [id number] [place] [address]- 0537 Jul, [facility] [place] [facility] [address] [id number] [place] [address]- 1921 Jun, [facility] [place] [facility] [address] [id number] [place] [address]- 0833 Jun, [facility] [place] [facility] [address] [id number] [place] [address]- 1191 Apr, [facility] [place] [facility] [address] [id number] [place] [address]- 9437 Apr, [facility] [place] [facility] [address] [id number] [place] [address]- 2081 Apr, [facility] [place] [facility] [address] [id number] [place] [address]- 7243 Feb, [facility] [place] [facility] [address] [id number] [place] [address]- 5791 Feb, [facility] [place] [facility] [address] [id number] [place] [address]- 8269 Feb, [facility] [place] [facility] [address] [id number] [place] [address]- 1300 Feb, [facility] [place] [facility] [address] [id number] [place] [address]- 4034 Aug, [facility] [place] [facility] [address] [id number] [place] [address]- 4136 Aug, [facility] [place] [facility] [address] [id number] [place] [address]- 3028 Mar, [facility] [place] [facility] [address] [id number] [place] [address]- 7733 Mar, [facility] [place] [facility] [address] [id number] [place] [address]- 0842 Mar, [facility] [place] [facility] [address] [id number] [place] [address]- 9424 Mar, [facility] [place] [facility] [address] [id number] [place] [address]- 4675 Feb, [facility] [place] [facility] [address] [id number] [place] [address]- 9185 06 Feb, 2013 [facility] [place] [facility] [address] [id number] [place] [address]- 6307 Feb, [facility] [place] [facility] [address] [id number] [place] [address]- 0704 30 Jan, 2013 [facility] [place] [facility] [address] [id number] [place] [address]- 9913 Jan, [facility] [place] [facility] [address] [id number] [place] [address]- 3439 Dec, [facility] [place] [facility] [address] [id number] [place] [address]- 4816 Dec, [facility] [place] [facility] [address] [id number] [place] [address]- 7690 Nov, [facility] [place] [facility] [id number], [place] [address]- 2546 14 Nov, 2012 [facility] [id number], [place] [address]- 9436 Jan, [facility] [id number], [place] [address]- 2546 Jan, [facility] [id number], [place] [address]- 2546 Aug, [facility] [id number], [place] [address]- 2546 Jun, [facility] [address], [place] [address]- 2546 Jun, [facility] [id number], [place] [address]- 2546 Apr, [facility] [id number], [place] [address]- 2546 Feb, IMMUNIZATIONS No Known Immunizations SOCIAL HISTORY Never Assessed REASON FOR VISIT Hospital admit/DC PLAN OF CARE VITAL SIGNS MEDICATIONS Medication Instructions Dosage Frequency Start Date End Date Duration Status Mens Daily Formula/Lycopene - Active Protonix 40 mg 1 tablet 24h Not-Taking Marshall 5-325 MG Orally every 6 hrs 1 tablet as needed 6h Sep, Active Doxycycline Hyclate 100 mg Orally twice a day 1 tablet 12h October, October, Active Tylenol Extra Strength 500 mg Orally every 6 hrs 2 tablets as needed 6h Active Carafate 1 GM Orally 4 times a [...] History dehydration Hospitalization History chest pain, pancytopenia, slenomegaly-[facility] 10/25/17
--- OUTSIDE RECORDS SUMMARY | 2018-06-13 15:46 | XMS REPORT ---
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 Role Phone BRENNERMARIPOSA Unavailable PROBLEMS Type Condition ICD9-CM Code QTU09-HV Code Onset Dates Condition Status SNOMED Code Problem GERD with esophagitis K21.0 Active 095880588 Problem Morbid (severe) obesity due to excess calories E66.01 Active 04129391907378 Problem Essential hypertension I10 Active 17596538 Problem Other chronic pain G89.29 Active 32234427 Problem Gastroesophageal reflux disease with esophagitis K21.0 Active 693871773 Problem Other ulcerative colitis without complication K51.80 Active 75315086 Problem Pancytopenia D61.818 Active 619504180 Problem Temporary low platelet count D69.6 Active 580317185 Problem Body mass index (BMI) of 40.0-44.9 in adult Z68.41 Active 267649436 Problem Body mass index (BMI) of 45.0-49.9 in adult Z68.42 Active 641096684 Problem Neutropenia, unspecified type D70.9 Active 419349419 Problem Other chronic pain G89.29 Active 82180342 ALLERGIES No Information ENCOUNTERS Encounter Location Date Diagnosis [facility] [address], [place] [address] Dec, Other chronic pain G89.29 [facility] [id number] [place] [address] 58693- 6791 Nov, Other chronic pain G89.29 [facility] [address], [place] [address] Nov, [facility] [address], [place] [address] Nov, [facility] [id number] [place] [address] 77995- 0409 October, Other chronic pain G89.29 ; Pain in right knee M25.561 ; Pain in left knee M25.562 and Abdominal pain, left lower quadrant R10.32 [facility] [id number] [place] [address] 51712- 0397 October, [facility] [id number] [place] [address] 85610- 8170 October, Splenomegaly R16.1 ; Neutropenia, unspecified type D70.9 and Temporary low platelet count D69.6 [facility] [id number] [place] [address] 69994 -1321 October, [facility] [id number] [place] [address] 08695- 6519 October, Pancytopenia D61.818 [facility] [id number] [place] [address] 46970- 2486 October, [facility] [id number] [place] [address] 03450- 2941 October, [facility] [id number] [place] [address] 56920- 4813 October, Pancytopenia D61.818 [facility] [id number] [place] [address] 70863- 1584 Sep, Other chronic pain G89.29 ; Pain in left knee M25.562 ; Pain in right knee M25.561 and Abdominal pain, left lower quadrant R10.32 [facility] [address] [place] [address] 89234- 1665 Sep, Edema of left lower extremity R60.0 ; Essential hypertension I10 ; Morbid (severe) obesity due to excess calories E66.01 ; Body mass index (BMI) of 40.0-44.9 in adult Z68.41 and Hiatal hernia K44.9 [facility] [id number] [place] [address] 29972- 4133 Aug, [place] [id number] [place] [address] 96619- 7101 Aug, [facility] [id number] [place] [address] 69857- 1061 Jul, Pain in right shoulder M25.511 [facility] [id number] [place] [address] 79869- 6025 Jul, [facility] [id number] [place] [address] 50486 -1363 Jul, Localized edema R60.0 and BMI 40.0-44.9, adult Z68.41 [place] [address] 7[address]99- 6256 Jul, [facility] [facility] [id number] [place] [address] 09497- 1516 Jun, Edema of left lower extremity R60.0 ; Essential hypertension I10 ; Family history of coronary artery disease Z82.49 ; Morbid ( severe) obesity due to excess calories E66.01 and Body mass index (BMI) of 45.0- 49.9 in adult Z68.42 [facility] [id number] [place] [address] 43569- 4595 Jun, Other chronic pain G89.29 [facility] [id number] [place] [address] 48201- 3920 Jun, Pain in right shoulder M25.511 [facility] [id number] [place] [address] 34927- 9421 Jun, Other ulcerative colitis without complication K51.80 [facility] [id number] [place] [address] 27432 -7647 May, [place] [id number] [place] [address] 80297- 5787 May, GERD with esophagitis K21.0 ; Other ulcerative colitis without complication K51.80 and Other chest pain R07.89 [facility] [address], [place] [address] May, [facility] [id number] [place] [address] 09227 -8346 May, Left leg swelling M79.89 [facility] [id number] [place] [address] 44829- 8427 Apr, Pain in right shoulder M25.511 [facility] [id number] [place] [address] 66407- 4053 Apr, Pain in right shoulder M25.511 [facility] [id number] [place] [address] 99226- 6996 Mar, [facility] [id number] [place] [address] 41982- 4502 Mar, Pain in right shoulder M25.511 [facility] [id number] [place] [address] 29905- 4149 Mar, [facility] [id number] [place] [address] 58192- 0916 Mar, [facility] [id number] [place] [address] 97332- 2700 Feb, Pain in right shoulder M25.511 [facility] [id number] [place] [address] 67554- 2289 Jan, Pain in right shoulder M25.511 [facility] [id number] [address] 0630 Jan, [facility] [id number] [place] [address] 91989- 6833 Dec, Pain in right shoulder M25.511 [facility] [address], [place] [address]- 2516 Nov, Pain in right shoulder M25.511 [facility] [id number] [place] [address] 76852- 0608 Nov, Pain in right shoulder M25.511 [facility] [address] [place] [address] 82576- 1789 October, Pain in right shoulder M25.511 [facility] [id number] [place] [address] 843755- 8876 Sep, Pain in right shoulder M25.511 [facility] [id number] [place] [address] 89201- 5430 Aug, Pain in right shoulder M25.511 [facility] [id number] [place] [address] 05592- 3224 Jul, Pain in right shoulder M25.511 [facility] [id number] [place] [address] 97723- 4206 Jul, Pain in left shoulder M25.512 [facility] [id number] [place] [address] 73357- 3977 Jul, Other chronic pain G89.29 [facility] [id number] [place] [address] 07859- 4560 Jul, Pain in right shoulder M25.511 ; Other chronic pain G89.29 ; Pain in left shoulder M25.512 and Gastroesophageal reflux disease with esophagitis K21.0 [facility] [address], [place] [address]- 0193 Jun, [facility] [id number] [place] [address] 2173 May, [facility] [id number] [address]196 May, [facility] [id number] [place] [address] 220296- 2306 15 Apr, 2016 [facility] [address], [place] [address]- 1387 Mar, [facility] [address], [place] [address]- 6586 22 Feb, 2016 [facility] [id number] [place] [address] 92395- 8892 13 Feb, 2016 [facility] [id number] [place] [address] 78386- 8501 12 Feb, 2016 [facility] [id number] [place] [address] 39239- 7440 06 Feb, 2016 [facility] [id number] [place] [address] 20174- 4053 Jan, [facility] [id number] [place] [address] 79106- 0635 Dec, Pain in left shoulder M25.512 [facility] [id number] [place] [address] 23903- 1815 Dec, Gastroesophageal reflux disease, esophagitis presence not specified K21.9 [facility] [id number] [place] [address] 12518- 9945 Nov, Pain in left shoulder M25.512 [facility] [id number] [place] [address] 34836- 5925 October, Pain in left shoulder M25.512 [facility] [address] [place] [address] 08989- 7327 Sep, Shoulder pain, left M25.512 [facility] [id number] [place] [address] 10752- 3160 Aug, Pain in right shoulder M25.511 and Other chronic pain G89.29 [facility] [id number] [place] [address] 41248- 3388 Aug, Shoulder pain, right M25.511 and GERD (gastroesophageal reflux disease) K21.9 [facility] [address], [place] [address]- 2361 Nov, [facility] [id number] [place] [address]- 4447 14 Sep, 2014 [facility] [place] [facility] [address] [id number] [place] [address]- 3181 13 Sep, 2014 [facility] [place] [facility] [address] [id number] [place] [address]- 7976 23 Jul, 2014 [facility] [place] [facility] [address] [id number] [place] 9146 Jul, 2014 [facility] [place] [facility] [address] [id number] [place] [address]- 5909 Jul, 2014 [facility] [place] [facility] [address] [id number] [place] 7821 Jul, 2014 [facility] [place] [facility] [address] [id number] [place] [address]- 5917 Jul, [facility] [place] [facility] [address] [id number] [place] [address]- 5560 Jul, [facility] [place] [facility] [address] [id number] [place] [address]- 9165 Jun, [facility] [place] [facility] [address] [id number] [place] [address]- 3207 Jun, [facility] [place] [facility] [address] [facility] [id number] [place] [address]- 7992 Apr, [facility] [place] [facility] [address] [id number] [place] [address]- 9387 Apr, [facility] [place] [facility] [address] [id number] [place] [address]- 8636 10 Apr, 2014 [facility] [place] [facility] [address] [id number] [place] [address]- 1486 12 Feb, 2014 [facility] [place] [facility] [address] [id number] [place] [address]- 5784 12 Feb, 2014 [facility] [place] [facility] [address] [id number] [place] [address]- 2615 Feb, [facility] [place] [facility] [address] [id number] [place] [address]- 0546 Feb, [facility] [place] [facility] [address] [id number] [place] [address]- 9703 Aug, [facility] [place] [facility] [address] [id number] [place] [address]- 5779 Aug, [facility] [place] [facility] [address] [id number] [place] [address]- 7377 Mar, [facility] [place] [facility] [address] [id number] [place] [address]- 9182 Mar, [facility] [place] [facility] [address] [id number] [place] [address]- 0973 Mar, [facility] [place] [facility] [address] [id number] [place] [address]- 1933 Mar, [facility] [place] [facility] [address] [id number] [place] [address]- 9579 Feb, [facility] [place] [facility] [address] [id number] [place] [address]- 0496 06 Feb, 2013 [facility] [place] [facility] [address] [id number] [place] [address]- 7280 Feb, [facility] [place] [facility] [address] [id number] [place] [address]- 5060 30 Jan, 2013 [facility] [place] [facility] [address] [id number] [address]- 5091 Jan, [facility] [place] [facility] [address] [id number] [place] [address]- 8366 Dec, [facility] [place] [facility] [address] [id number] [place] [address]- 0116 Dec, [facility] [place] [facility] [address] [id number] [place] [address]- 1795 Nov, [facility] [place] [facility] [id number] [place] [address]- 9606 14 Nov, 2012 [facility] [address], [place] [address]- 8566 Jan, [facility] [address], [place] [address]- 2526 Jan, [facility] [address], [place] [address]- 6846 Aug, [facility] [address], [place] [address]- 6594 Jun, [facility] [address], [place] [address]- 1081 Jun, [facility] [address], [place] [address]- 7777 10 Apr, 2010 [facility] [id number], [place] [address]- 9019 17 Feb, 2010 IMMUNIZATIONS No Known Immunizations [...] History dehydration Hospitalization History chest pain, pancytopenia, slenomegaly-[facility] 10/25/17
--- OUTSIDE RECORDS SUMMARY | 2018-06-13 15:46 | XMS REPORT ---
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 Phone REDDY ROQUE Unavailable PROBLEMS Type Condition ICD9-CM Code VIH46-SE Code Onset Dates Condition Status SNOMED Code Problem GERD with esophagitis K21.0 Active 580243069 Problem Morbid (severe) obesity due to excess calories E66.01 Active 48663783235883 Problem Essential hypertension I10 Active 49370071 Problem Other chronic pain G89.29 Active 04745337 Problem Gastroesophageal reflux disease with esophagitis K21.0 Active 724850164 Problem Other ulcerative colitis without complication K51.80 Active 96412956 Problem Pancytopenia D61.818 Active 904278691 Problem Temporary low platelet count D69.6 Active 891477607 Problem Body mass index (BMI) of 40.0-44.9 in adult Z68.41 Active 191467871 Problem Body mass index (BMI) of 45.0-49.9 in adult Z68.42 Active 894027012 Problem Neutropenia, unspecified type D70.9 Active 435645107 Problem Other chronic pain G89.29 Active 29658503 ALLERGIES No Information ENCOUNTERS Encounter Location Date Diagnosis [facility] [id number], [place] [address] Dec, Other chronic pain G89.29 [facility] [id number], [place] [address] Nov, Other chronic pain G89.29 [facility] [id number], [place] [address] Nov, [facility] [id number], [place] [address] Nov, [facility] [id number] [place] [address] 46276- 1509 October, Other chronic pain G89.29 ; Pain in right knee M25.561 ; Pain in left knee M25.562 and Abdominal pain, left lower quadrant R10.32 [facility] [id number] [place] [address] 67045- 8006 October, [facility] [id number] [place] [address] 88605- 7341 October, Splenomegaly R16.1 ; Neutropenia, unspecified type D70.9 and Temporary low platelet count D69.6 [facility] [id number] [place] [address] 59462 -2145 October, [facility] [id number] [place] [address] 61308- 6489 October, Pancytopenia D61.818 [facility] [id number] [place] [address] 83222- 8641 October, [facility] [id number] [place] [address] 21440- 2554 October, [facility] [id number] [place] [address] 24153- 3257 October, Pancytopenia D61.818 [facility] [id number] [place] [address] 04684- 7736 Sep, Other chronic pain G89.29 ; Pain in left knee M25.562 ; Pain in right knee M25.561 and Abdominal pain, left lower quadrant R10.32 [place] [id number] [place] [address] 83255- 8106 Sep, Edema of left lower extremity R60.0 ; Essential hypertension I10 ; Morbid (severe) obesity due to excess calories E66.01 ; Body mass index (BMI) of 40.0-44.9 in adult Z68.41 and Hiatal hernia K44.9 [facility] [id number] [place] [address] 98841- 3167 Aug, [place] [id number] [place] [address] 83666- 1763 Aug, [place] [address] [address]- [address]77 Jul, Pain in right shoulder M25.511 [place] [address] 78457- 5145 Jul, [facility] [place] [id number] [place] [address] 71569 -4737 Jul, Localized edema R60.0 and BMI 40.0-44.9, adult Z68.41 [place] [address] 49136- 3798 Jul, [place] [id number] [place] [address] 57868- 3198 Jun, Edema of left lower extremity R60.0 ; Essential hypertension I10 ; Family history of coronary artery disease Z82.49 ; Morbid ( severe) obesity due to excess calories E66.01 and Body mass index (BMI) of 45.0- 49.9 in adult Z68.42 [place] [id number] [place] [address] 49900- 4759 Jun, Other chronic pain G89.29 [place] [id number] [place] [address] 60540- 2642 Jun, Pain in right shoulder M25.511 [place] [id number] [place] [address] 90680- 5837 Jun, Other ulcerative colitis without complication K51.80 [facility] [place] [id number] [place] [address] 86184 -1727 May, [place] [id number] [place] [address] 40825- 6699 May, GERD with esophagitis K21.0 ; Other ulcerative colitis without complication K51.80 and Other chest pain R07.89 [facility] [address], [place] [address] 6[address] May, [facility] [id number] [place] [address] 63024 2546 May, Left leg swelling M79.89 [facility] [id number] [place] [address] 49620- 7796 Apr, Pain in right shoulder M25.511 [facility] [id number] [place] [address] 33366- 3069 Apr, Pain in right shoulder M25.511 [facility] [id number] [place] [address] 77457- 1426 Mar, [facility] [id number] [place] [address] 27952- 9090 Mar, Pain in right shoulder M25.511 [facility] [id number] [place] [address] 45204- 8535 Mar, [facility] [id number] [place] [address] 17069- 8088 Mar, [facility] [id number] [place] [address] 03688- 3766 Feb, Pain in right shoulder M25.511 [facility] [id number] [place] [address] 73248- 4817 Jan, Pain in right shoulder M25.511 [facility] [address], [place] [address] 3296 Jan, [facility] [id number] [place] [address] 70827- 7038 Dec, Pain in right shoulder M25.511 [facility] [address] [place] [address] 42040 2546 Nov, Pain in right shoulder M25.511 [facility] [id number] [place] [address] 03318- 6820 Nov, Pain in right shoulder M25.511 [facility] [id number] [place] [address] 60710- 4651 October, Pain in right shoulder M25.511 [facility] [id number] [place] [address] 30083- 0461 Sep, Pain in right shoulder M25.511 [facility] [id number] [place] [address] 09818- 5720 Aug, Pain in right shoulder M25.511 [facility] [id number] [place] [address] 84237- 1090 Jul, Pain in right shoulder M25.511 [facility] [id number] [place] [address] 26771- 8384 Jul, Pain in left shoulder M25.512 [facility] [id number] [place] [address] 19787- 1503 Jul, Other chronic pain G89.29 [facility] [id number] [place] [address] 46134- 1554 Jul, Pain in right shoulder M25.511 ; Other chronic pain G89.29 ; Pain in left shoulder M25.512 and Gastroesophageal reflux disease with esophagitis K21.0 [facility] [id number] [place] [address] 03182- 9911 Jun, [facility] [id number] [place] [address] 68441- 7253 May, [facility] [id number] [place] [address] 06898- 1382 May, [facility] [id number] [place] [address] 77973- 1126 15 Apr, 2016 [facility] [id number] [place] [address] 02153- 2047 Mar, [facility] [address], [place] [address]- 8349 22 Feb, 2016 [facility] [address] [place] [address] 51854- 7191 13 Feb, 2016 [facility] [address], [place] [address]- 4673 12 Feb, 2016 [facility] [id number] [place] [address] 70591- 4182 06 Feb, 2016 [facility] [id number] [place] [address] 89069- 3884 Jan, [facility] [id number] [place] [address] 54472- 0806 Dec, Pain in left shoulder M25.512 [facility] [id number] [place] [address] 99778- 3226 Dec, Gastroesophageal reflux disease, esophagitis presence not specified K21.9 [facility] [id number] [place] [address] 51661- 2483 Nov, Pain in left shoulder M25.512 [facility] [id number] [place] [address] 31845- 1767 October, Pain in left shoulder M25.512 [facility] [id number] [place] [address] 97511- 4071 Sep, Shoulder pain, left M25.512 [facility] [address] [place] [address] 20963- 1628 Aug, Pain in right shoulder M25.511 and Other chronic pain G89.29 [facility] [id number] [place] [address] 43151- 1884 Aug, Shoulder pain, right M25.511 and GERD (gastroesophageal reflux disease) K21.9 [facility] [address] [address]- 2188 Nov, [facility] [address] [place] [address]- 6588 14 Sep, 2014 [facility] [place] [facility] [address] [id number] [place] [address]- 0002 13 Sep, 2014 [facility] [place] [facility] [address] [id number] [place] [address]- 1308 Jul, 2014 [facility] [place] [facility] [address] [id number] [place] [address]- 6951 Jul, 2014 [facility] [place] [facility] [address] [id number] [place] [address]- 2781 Jul, 2014 [facility] [place] [facility] [address] [id number] [place] [address]- 9231 Jul, 2014 [facility] [place] [facility] [address] [id number] [place] [address]- 8038 Jul, [facility] [place] [facility] [address] [id number] [place] [address]- 1199 Jul, [facility] [place] [facility] [address] [id number] [place] [address]- 7828 Jun, [facility] [place] [facility] [address] [id number] [place] [address]- 7130 Jun, [facility] [place] [facility] [address] [id number] [place] [address]- 4333 Apr, [facility] [place] [facility] [address] [id number] [place] [address]- 8914 Apr, [facility] [place] [facility] [address] [id number] [place] [address]- 3476 Apr, [facility] [place] [facility] [address] [id number] [place] [address]- 8526 Feb, [facility] [place] [facility] [address] [id number] [place] [address]- 9076 Feb, [facility] [place] [facility] [address] [id number] [place] [address]- 8519 Feb, [facility] [place] [facility] [address] [id number] [place] [address]- 7268 Feb, [facility] [place] [facility] [address] [id number] [place] [address]- 1394 Aug, [facility] [place] [facility] [address] [id number] [place] [address]- 1865 Aug, [facility] [place] [facility] [address] [id number] [place] [address]- 0068 Mar, [facility] [place] [facility] [address] [id number] [place] [address]- 7851 Mar, [facility] [place] [facility] [address] [id number] [place] [address]- 5276 Mar, [facility] [place] [facility] [address] [id number] [place] [address]- 8874 Mar, [facility] [place] [facility] [address] [id number] [place] [address]- 9051 Feb, [facility] [place] [facility] [address] [id number] [place] [address]- 7519 06 Feb, 2013 [facility] [place] [facility] [address] [id number] [place] [address]- 2172 Feb, [facility] [place] [facility] [address] [id number] [place] [address]- 2985 30 Jan, 2013 [facility] [place] [facility] [address] [id number] [place] [address]- 8942 Jan, [facility] [place] [facility] [address] [id number] [place] [address]- 0180 Dec, [facility] [place] [facility] [address] [id number] [place] [address]- 3183 Dec, [facility] [place] [facility] [address] [id number] [place] [address]- 7171 Nov, [facility] [place] [facility] [id number] [address]- 2546 14 Nov, 2012 [facility] [id number] [address]- 8206 Jan, [facility] [address], [place] [address]- 2546 Jan, [facility] [id number], [place] [address]- 2206 Aug, [facility] [address], [place] [address]- 2546 Jun, [facility] [address], [place] [address]- 2396 Jun, [facility] [address], [place] [address]- 6926 Apr, [facility] [id number] [address]- 1646 17 Feb, 2010 IMMUNIZATIONS No Known Immunizations SOCIAL HISTORY Never Assessed REASON FOR VISIT Lab (walk-in) PLAN OF CARE VITAL SIGNS MEDICATIONS Unknown Medications RESULTS No Results PROCEDURES Procedure Date Ordered Result Body Site COMPREHEN METABOLIC PANEL October 29, 2017 COMPLETE CBC W/AUTO DIFF WBC October 29, 2017 INSTRUCTIONS MEDICATIONS ADMINISTERED No Known Medications MEDICAL (GENERAL) HISTORY Type Description Date Medical History colitis Medical History right shoulder pain Surgical History Appendectomy Surgical History Abscess drained and removed Hospitalization History surgery Hospitalization History dehydration Hospitalization History chest pain, pancytopenia, [facility]galy[facility] 10/25/17
--- OUTSIDE RECORDS SUMMARY | 2018-06-13 15:46 | XMS REPORT ---
Author Author REDDY ROQUE [facility] Address [address] [place] [address] Care Team Providers Care Marketing Segment Manager Name Role Phone REDDY ROQUE Unavailable PROBLEMS Type Condition ICD9-CM Code VLN39-EK Code Onset Dates Condition Status SNOMED Code Problem GERD with esophagitis K21.0 Active 957918072 Problem Morbid (severe) obesity due to excess calories E66.01 Active 12336808397336 Problem Essential hypertension I10 Active 56218543 Problem Other chronic pain G89.29 Active 67361179 Problem Gastroesophageal reflux disease with esophagitis K21.0 Active 126741896 Problem Other ulcerative colitis without complication K51.80 Active 57019985 Problem Pancytopenia D61.818 Active 899816138 Problem Temporary low platelet count D69.6 Active 134689219 Problem Body mass index (BMI) of 40.0-44.9 in adult Z68.41 Active 288636880 Problem Body mass index (BMI) of 45.0-49.9 in adult Z68.42 Active 570397564 Problem Neutropenia, unspecified type D70.9 Active 907948237 Problem Other chronic pain G89.29 Active 69093179 ALLERGIES No Information ENCOUNTERS Encounter Location Date Diagnosis [facility] [id number] [address] Dec, Other chronic pain G89.29 [facility] [id number] [address] Nov, Other chronic pain G89.29 [facility] [id number] [address] Nov, [facility] [id number] [address] Nov, [facility] [id number] [place] [address] 76125- 6507 October, Other chronic pain G89.29 ; Pain in right knee M25.561 ; Pain in left knee M25.562 and Abdominal pain, left lower quadrant R10.32 [facility] [id number] [place] [address] 72190- 5930 October, [facility] [id number] [place] [address] 11336- 7199 October, Splenomegaly R16.1 ; Neutropenia, unspecified type D70.9 and Temporary low platelet count D69.6 [facility]ALK IN [facility] [id number] [place] [address]15 -7611 October, [facility] [id number] [place] [address] 59322- 6156 October, Pancytopenia D61.818 [facility] [id number] [place] [address] 22994- 6907 October, [facility] [id number] [place] [address] 70782- 0785 October, [facility] [id number] [place] [address] 72667- 8572 October, Pancytopenia D61.818 [facility] [id number] [place] [address] 07976- 1292 Sep, Other chronic pain G89.29 ; Pain in left knee M25.562 ; Pain in right knee M25.561 and Abdominal pain, left lower quadrant R10.32 [place] [id number] [place] [address] 30196- 6435 Sep, Edema of left lower extremity R60.0 ; Essential hypertension I10 ; Morbid (severe) obesity due to excess calories E66.01 ; Body mass index (BMI) of 40.0-44.9 in adult Z68.41 and Hiatal hernia K44.9 [facility] [id number] [place] [address] 82056- 6103 Aug, [place] [id number] [place] [address] 37736- 3312 Aug, [place] [address] [address]326- 4229 Jul, Pain in right shoulder M25.511 [place] [address] 61680- 0990 Jul, [facility] [place] [id number] [place] [address] 31049 -2171 Jul, Localized edema R60.0 and BMI 40.0-44.9, adult Z68.41 [place] [address] [address]- 0022 Jul, [place] [id number] [place] [address] 57626- 4369 Jun, Edema of left lower extremity R60.0 ; Essential hypertension I10 ; Family history of coronary artery disease Z82.49 ; Morbid ( severe) obesity due to excess calories E66.01 and Body mass index (BMI) of 45.0- 49.9 in adult Z68.42 [place] [id number] [place] [address] 22372- 3702 Jun, Other chronic pain G89.29 [place] [id number] [place] [address] 40335- 1509 Jun, Pain in right shoulder M25.511 [place] [id number] [place] [address] 74740- 8285 Jun, Other ulcerative colitis without complication K51.80 [facility] [place] [id number] [place] [address] 05460 -6944 May, [place] [id number] [place] [address] 96559- 3119 May, GERD with esophagitis K21.0 ; Other ulcerative colitis without complication K51.80 and Other chest pain R07.89 [facility] [address] [address] May, [facility] [id number] [place] [address] 09432 2546 May, Left leg swelling M79.89 [facility] [id number] [place] [address] 12628- 9326 Apr, Pain in right shoulder M25.511 [facility] [id number] [place] [address] 23248- 4519 Apr, Pain in right shoulder M25.511 [facility] [id number] [place] [address] 95667- 7646 Mar, [facility] [id number] [place] [address] 49072- 5476 Mar, Pain in right shoulder M25.511 [facility] [id number] [place] [address] 60283- 5692 Mar, [facility] [id number] [place] [address] 25079- 7821 Mar, [facility] [id number] [place] [address] 39996- 8920 Feb, Pain in right shoulder M25.511 [facility] [id number] [place] [address] 30009- 3160 Jan, Pain in right shoulder M25.511 [facility] [id number] [address] 2[address] Jan, [facility] [id number] [place] [address] 34842- 3286 Dec, Pain in right shoulder M25.511 [facility] [address] [place] [address] 10840 2546 Nov, Pain in right shoulder M25.511 [facility] [id number] [place] [address] 51137- 7839 Nov, Pain in right shoulder M25.511 [facility] [id number] [place] [address] 51540- 4866 October, Pain in right shoulder M25.511 [facility] [id number] [place] [address] 33112- 8125 Sep, Pain in right shoulder M25.511 [facility] [id number] [place] [address] 34990- 9328 Aug, Pain in right shoulder M25.511 [facility] [id number] [place] [address] 48229- 5656 Jul, Pain in right shoulder M25.511 [facility] [id number] [place] [address] 91543- 4057 Jul, Pain in left shoulder M25.512 [facility] [id number] [place] [address] 00188- 8607 Jul, Other chronic pain G89.29 [facility] [id number] [place] [address] 60768- 4162 Jul, Pain in right shoulder M25.511 ; Other chronic pain G89.29 ; Pain in left shoulder M25.512 and Gastroesophageal reflux disease with esophagitis K21.0 [facility] [id number] [place] [address] 43554- 0509 Jun, [facility] [id number] [place] [address] 57350- 1109 May, [facility] [id number] [place] [address] 57072- 2211 May, [facility] [id number] [place] [address] 50329- 0416 15 Apr, 2016 [facility] [id number] [place] [address] 43086- 8413 Mar, [facility] [address] [address]- 6917 22 Feb, 2016 [facility] [address] [place] [address] 73362- 6565 13 Feb, 2016 [facility] [address] [address]- 2776 12 Feb, 2016 [facility] [id number] [place] [address] 19708- 7666 06 Feb, 2016 [facility] [id number] [place] [address] 04954- 3395 Jan, [facility] [id number] [place] [address] 39646- 6639 Dec, Pain in left shoulder M25.512 [facility] [id number] [place] [address] 48394- 0936 Dec, Gastroesophageal reflux disease, esophagitis presence not specified K21.9 [facility] [id number] [place] [address] 68638- 1361 Nov, Pain in left shoulder M25.512 [facility] [id number] [place] [address] 43064- 7868 October, Pain in left shoulder M25.512 [facility] [id number] [place] [address] 67686- 8514 Sep, Shoulder pain, left M25.512 [facility] [address] [place] [address] 30848- 4606 Aug, Pain in right shoulder M25.511 and Other chronic pain G89.29 [facility] [id number] [place] [address] 55767- 6236 Aug, Shoulder pain, right M25.511 and GERD (gastroesophageal reflux disease) K21.9 [facility] [address] [address]- 6253 Nov, [facility] [address] [place] [address]- 2565 14 Sep, 2014 [facility] [place] [facility] [address] [id number] [place] [address]- 3941 13 Sep, 2014 [facility] [place] [facility] [address] [id number] [place] [address]- 8830 Jul, 2014 [facility] [place] [facility] [address] [id number] [place] [address]- 5917 Jul, 2014 [facility] [place] [facility] [address] [id number] [place] [address]- 6221 Jul, 2014 [facility] [place] [facility] [address] [id number] [place] [address]- 4296 Jul, 2014 [facility] [place] [facility] [address] [id number] [place] [address]- 6919 Jul, [facility] [place] [facility] [address] [id number] [place] [address]- 8815 Jul, [facility] [place] [facility] [address] [id number] [place] [address]- 6771 Jun, [facility] [place] [facility] [address] [id number] [place] [address]- 1467 Jun, [facility] [place] [facility] [address] [id number] [place] [address]- 5966 Apr, [facility] [place] [facility] [address] [id number] [place] [address]- 3713 Apr, [facility] [place] [facility] [address] [id number] [place] [address]- 2601 Apr, [facility] [place] [facility] [address] [id number] [place] [address]- 8939 Feb, [facility] [place] [facility] [address] [id number] [place] [address]- 5126 Feb, [facility] [place] [facility] [address] [id number] [place] [address]- 2267 Feb, [facility] [place] [facility] [address] [id number] [place] [address]- 9568 Feb, [facility] [place] [facility] [address] [id number] [place] [address]- 3820 Aug, [facility] [place] [facility] [address] [id number] [place] [address]- 3047 Aug, [facility] [place] [facility] [address] [id number] [place] [address]- 3303 Mar, [facility] [place] [facility] [address] [id number] [place] [address]- 3793 Mar, [facility] [place] [facility] [address] [id number] [place] [address]- 8108 Mar, [facility] [place] [facility] [address] [id number] [place] [address]- 6494 Mar, [facility] [place] [facility] [address] [id number] [place] [address]- 6985 Feb, [facility] [place] [facility] [address] [id number] [place] [address]- 3569 06 Feb, 2013 [facility] [place] [facility] [address] [id number] [place] [address]- 0838 Feb, [facility] [place] [facility] [address] [id number] [place] [address]- 5094 30 Jan, 2013 [facility] [place] [facility] [address] [id number] [place] [address]- 3936 Jan, [facility] [place] [facility] [address] [id number] [place] [address]- 4257 Dec, [facility] [place] [facility] [address] [id number] [place] [address]- 1938 Dec, [facility] [place] [facility] [address] [id number] [place] [address]- 0518 Nov, [facility] [place] [facility] [id number] [address]- 2546 14 Nov, 2012 [facility] [address] [address]- 5866 Jan, [facility] [address] [address]- 2546 Jan, [facility] [address] [address]- 2546 Aug, [facility] [address] [address]- 2546 Jun, [facility] [address] [address]- 2056 Jun, [facility] [address] [address]- 6586 Apr, [facility] [address] [address]- 0192 17 Feb, 2010 IMMUNIZATIONS No Known Immunizations SOCIAL HISTORY Never Assessed REASON FOR VISIT bruising PLAN OF CARE VITAL SIGNS MEDICATIONS Unknown Medications RESULTS No Results PROCEDURES No Known procedures INSTRUCTIONS MEDICATIONS ADMINISTERED No Known Medications MEDICAL (GENERAL) HISTORY Type Description Date Medical History colitis Medical History right shoulder pain Surgical History Appendectomy Surgical History Abscess drained and removed Hospitalization History surgery Hospitalization History dehydration Hospitalization History chest pain, pancytopenia, slenomegaly-[facility] 10/25/17
--- OUTSIDE RECORDS SUMMARY | 2018-06-13 15:47 | XMS REPORT ---
Author Author AMY HALEY Organization [facility] Address [address] [place] [address] Care Team Providers Care Fishing Lure Assembler Name Role Phone AMY HALEY Unavailable PROBLEMS Type Condition ICD9-CM Code BHT33-OG Code Onset Dates Condition Status SNOMED Code Problem GERD with esophagitis K21.0 Active 360303810 Problem Morbid (severe) obesity due to excess calories E66.01 Active 10287865389447 Problem Essential hypertension I10 Active 33116756 Problem Other chronic pain G89.29 Active 72157269 Problem Gastroesophageal reflux disease with esophagitis K21.0 Active 143878553 Problem Other ulcerative colitis without complication K51.80 Active 02450237 Problem Pancytopenia D61.818 Active 207206872 Problem Temporary low platelet count D69.6 Active 382575832 Problem Body mass index (BMI) of 40.0-44.9 in adult Z68.41 Active 565444425 Problem Body mass index (BMI) of 45.0-49.9 in adult Z68.42 Active 836260467 Problem Neutropenia, unspecified type D70.9 Active 345146620 Problem Other chronic pain G89.29 Active 32894739 ALLERGIES Substance Reaction Event Type Date Status Morphine Sulfate nausea and vomiting Drug Allergy Sep, Active ENCOUNTERS Encounter Location Date Diagnosis [facility] [place] [id number] [place] [address] 91022- 1464 Dec, Other chronic pain G89.29 [facility] [place] [id number], [place] [address] Nov, Other chronic pain G89.29 [facility] [place] [id number] [place] [address] 39207- 5170 Nov, [facility] [place] [id number] [place] [address] 88792- 4916 Nov, [facility] [place] [id number] [address] October, Other chronic pain G89.29 ; Pain in right knee M25.561 ; Pain in left knee M25.562 and Abdominal pain, left lower quadrant R10.32 [facility] [place] [id number] [place] [address] 77419- 7443 October, [facility] [place] [id number] [place] [address] 74637- 6539 October, Splenomegaly R16.1 ; Neutropenia, unspecified type D70.9 and Temporary low platelet count D69.6 [facility] [id number] [place] [address] 73592 -5926 October, [place] [id number] [place] [address] 09097- 4260 October, Pancytopenia D61.818 [place] [id number] [place] [address] 10748- 2042 October, [place] [id number] [place] [address] 10242- 2467 October, [place] [id number] [place] [address] 87291- 9318 October, Pancytopenia D61.818 [facility] [place] [id number] [place] [address] 71256- 3744 Sep, Other chronic pain G89.29 ; Pain in left knee M25.562 ; Pain in right knee M25.561 and Abdominal pain, left lower quadrant R10.32 [place] [id number] [place] [address] 55262- 9966 Sep, Edema of left lower extremity R60.0 ; Essential hypertension I10 ; Morbid (severe) obesity due to excess calories E66.01 ; Body mass index (BMI) of 40.0-44.9 in adult Z68.41 and Hiatal hernia K44.9 [place] [id number] [address] Aug, [place] [id number] [place] [address] 36068- 5501 Aug, [place] [id number] [place] [address] 33479- 9064 Jul, Pain in right shoulder M25.511 [place] [address] 59474- 9700 Jul, [facility] [id number] [place] [address] 04516 -0166 Jul, Localized edema R60.0 and BMI 40.0-44.9, adult Z68.41 [place] [id number] [place] [address] 01705- 1526 Jul, [place] [id number] [place] [address] 57586- 1196 Jun, Edema of left lower extremity R60.0 ; Essential hypertension I10 ; Family history of coronary artery disease Z82.49 ; Morbid ( severe) obesity due to excess calories E66.01 and Body mass index (BMI) of 45.0- 49.9 in adult Z68.42 [place] [id number] [place] [address] 49081- 2046 Jun, Other chronic pain G89.29 [place] [id number] [place] [address] 50370- 3243 Jun, Pain in right shoulder M25.511 [place] [id number] [place] [address] 53558- 6431 Jun, Other ulcerative colitis without complication K51.80 [facility] [id number] [place] [address] 24601 -6137 May, [place] [id number] [place] [address] 73807- 6923 May, GERD with esophagitis K21.0 ; Other ulcerative colitis without complication K51.80 and Other chest pain R07.89 [facility] [place] [id number] [address] May, [facility] [id number] [place] [address] 92830 -3986 May, Left leg swelling M79.89 [facility] [place] [id number] [place] [address] 45334- 1259 Apr, Pain in right shoulder M25.511 [facility] [place] [id number] [place] [address] 93079- 3246 Apr, Pain in right shoulder M25.511 [facility] [place] [id number] [place] [address] 88161- 5286 Mar, [facility] [place] [id number] [place] [address] 42829- 7196 Mar, Pain in right shoulder M25.511 [facility] [place] [id number] [place] [address] 69487- 1807 Mar, [facility] [place] [id number] [place] [address] 21332- 5012 Mar, [facility] [place] [id number] [place] [address] 99744- 2264 Feb, Pain in right shoulder M25.511 [facility] [place] [id number] [place] [address] 44279- 1238 Jan, Pain in right shoulder M25.511 [facility] [place] [id number] [address] 1086 Jan, [facility] [place] [id number] [place] [address] 70218- 4356 Dec, Pain in right shoulder M25.511 [facility] [place] [id number] [place] [address] 69274- 5556 Nov, Pain in right shoulder M25.511 [facility] [place] [address] [place] [address]- 9328 Nov, Pain in right shoulder M25.511 [facility] [place] [id number] [place] [address] 42459- 9326 October, Pain in right shoulder M25.511 [facility] [place] [id number] [place] [address] 25551- 6669 Sep, Pain in right shoulder M25.511 [facility] [place] [id number] [place] [address] 93162- 2995 Aug, Pain in right shoulder M25.511 [facility] [place] [id number] [place] [address] 365977- 3063 10 Jul, 2016 Pain in right shoulder M25.511 [facility] [place] [id number] [place] [address] 10479- 4049 Jul, Pain in left shoulder M25.512 [facility] [place] [id number] [address]- 7050 10 Jul, 2016 Other chronic pain G89.29 [facility] [place] [id number] [place] [address] 03756- 3461 09 Jul, 2016 Pain in right shoulder M25.511 ; Other chronic pain G89.29 ; Pain in left shoulder M25.512 and Gastroesophageal reflux disease with esophagitis K21.0 [facility] [place] [address], [place] [address]- 7822 Jun, [facility] [place] [address] [place] [address] 09407- 5338 May, [facility] [place] [id number] [place] [address] 680036- 5806 May, [facility] [place] [address] [place] [address]- 0379 15 Apr, 2016 [facility] [place] [id number] [place] [address] 41126- 1145 Mar, [facility] [place] [id number] [place] [address] 83163- 9541 22 Feb, 2016 [facility] [place] [id number] [place] [address] 10435- 3188 13 Feb, 2016 [facility] [place] [id number] [place] [address] 68865- 2223 Feb, [facility] [place] [address] 54487- 6750 06 Feb, 2016 [facility] [place] [id number] [place] [address] 32771- 0822 Jan, [facility] [place] [id number] [place] [address] 91945- 2106 Dec, Pain in left shoulder M25.512 [facility] [place] [id number] [place] [address] 29110- 8899 Dec, Gastroesophageal reflux disease, esophagitis presence not specified K21.9 [facility] [place] [id number] [place] [address] 05996- 0250 Nov, Pain in left shoulder M25.512 [facility] [place] [id number] [place] [address] 20922- 2696 October, Pain in left shoulder M25.512 [facility] [place] [id number] [place] [address] 63262- 5140 Sep, Shoulder pain, left M25.512 [facility] [place] [id number] [place] [address] 45162- 5166 Aug, Pain in right shoulder M25.511 and Other chronic pain G89.29 [facility] [place] [id number] [place] [address] 08556- 9546 Aug, Shoulder pain, right M25.511 and GERD (gastroesophageal reflux disease) K21.9 [facility] [id number] [place] [address] 07347- 8953 08 Nov, 2014 [facility] [place] [facility] [address] [id number] [place] [address]- 8546 14 Sep, 2014 [facility] [place] [facility] [address] [id number] [place] [address]- 2650 Sep, [facility] [place] [facility] [address] [id number] [place] [address]- 7918 Jul, [facility] [place] [facility] [address] [id number] [place] [address]- 8152 Jul, [facility] [place] [facility] [address] [id number] [place] [address]- 0294 Jul, [facility] [place] [facility] [address] [id number] [place] [address]- 8791 Jul, [facility] [place] [facility] [address] [id number] [place] [address]- 4879 Jul, [facility] [place] [facility] [address] [id number] [place] [address]- 9114 Jul, [facility] [place] [facility] [address] [id number] [place] [address]- 6474 Jun, [facility] [place] [facility] [address] [id number] [place] [address]- 9334 Jun, [facility] [place] [facility] [address] [id number] [place] [address]- 6358 Apr, [facility] [place] [facility] [address] [id number] [address]- 9556 Apr, [facility] [place] [facility] [address] [id number] [place] [address]- 9378 Apr, [facility] [place] [facility] [address] [id number] [place] [address]- 6265 Feb, [facility] [place] [facility] [address] [id number] [place] [address]- 8334 Feb, [facility] [place] [facility] [address] [id number] [place] [address]- 0925 11 Feb, 2014 [facility] [address] [id number] [place] [address]- 1999 11 Feb, 2014 [facility] [place] [facility] [address] [id number] [place] [address]- 9625 Aug, [facility] [place] [facility] [address] [id number] [place] [address]- 1722 Aug, [facility] [place] [facility] [address] [id number] [place] [address]- 8177 Mar, [facility] [address] [id number] [place] [address]- 1259 Mar, [facility] [place] [facility] [address] [id number] [place] [address]- 5666 Mar, [facility] [address] [id number] [place] [address]- 0805 Mar, [facility] [address] [id number] [place] [address]- 0435 09 Feb, 2013 [facility] [place] [facility] [address] [id number] [place] [address]- 7116 06 Feb, 2013 [facility] [place] [facility] [address] [id number] [place] [address]- 6232 03 Feb, 2013 [facility] [place] [facility] [address] [id number] [place] [address]- 3270 30 Jan, 2013 [facility] [place] [facility] [address] [id number] [place] [address]- 2753 Jan, [facility] [place] [facility] [address] [id number] [place] [address]- 9341 Dec, [facility] [place] [facility] [address] [id number] [place] [address] 2549 15 Dec, 2012 [facility] [place] [facility] [address] [id number] [place] [address]- 4300 Nov, [facility] [id number] [address]- 4426 Nov, [facility] [place] [id number] [address] 2546 Jan, [facility] [id number], [place] [address]- 2546 Jan, [facility] [address] [place] [address]- 2546 Aug, [facility] [id number], [place] [address]- 3677 Jun, [facility] [place] [address] [place] [address] 2546 Jun, [facility] [address] [place] [address]- 6036 Apr, [facility] [id number] [address]- 2506 Feb, IMMUNIZATIONS No Known Immunizations SOCIAL HISTORY Never Assessed REASON FOR VISIT referral for MRI on lower abdomen and both knees, lower abdomen pain [facility] PLAN OF CARE VITAL SIGNS Height 69 in 2017-10-11 Weight 272 lbs 2017-10-11 Temperature 98.1 degrees Fahrenheit 2017-10-11 Heart Rate 84 bpm 2017-10-11 Respiratory Rate 18 2017-10-11 BMI 40.16 kg/m2 2017-10-11 Blood pressure systolic 130 mmHg 2017-10-11 Blood pressure diastolic 82 mmHg 2017-10-11 MEDICATIONS Medication Instructions Dosage Frequency Start Date End Date Duration Status Beckley 5-325 MG Orally every 6 hrs 1 tablet as needed 6h Sep, Active Protonix 40 mg 1 tablet 24h Active Dicyclomine HCl 20 mg Orally Four times a day 1 tablet 6h May, Sep, 30 day(s) Active RESULTS Name Result Date Reference Range Ultrasound : Abdomen, LIMITED (specify organ) 2017-10-18 PROCEDURES No Known procedures INSTRUCTIONS MEDICATIONS ADMINISTERED No Known Medications MEDICAL (GENERAL) HISTORY Type Description Date Medical History colitis Medical History right shoulder pain Surgical History Appendectomy Surgical History Abscess drained and removed Hospitalization History surgery Hospitalization History dehydration Hospitalization History chest pain, pancytopenia, slenomegaly-[facility] 10/25/17
--- OUTSIDE RECORDS SUMMARY | 2018-06-13 15:47 | XMS REPORT ---
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 Role Phone REDDY ROQUE Unavailable PROBLEMS Type Condition ICD9-CM Code SEG61-HA Code Onset Dates Condition Status SNOMED Code Problem GERD with esophagitis K21.0 Active 893233912 Problem Morbid (severe) obesity due to excess calories E66.01 Active 99016708346973 Problem Essential hypertension I10 Active 16546138 Problem Other chronic pain G89.29 Active 12893569 Problem Gastroesophageal reflux disease with esophagitis K21.0 Active 284798050 Problem Other ulcerative colitis without complication K51.80 Active 07329046 Problem Pancytopenia D61.818 Active 715420949 Problem Temporary low platelet count D69.6 Active 770071180 Problem Body mass index (BMI) of 40.0-44.9 in adult Z68.41 Active 414117595 Problem Body mass index (BMI) of 45.0-49.9 in adult Z68.42 Active 184780908 Problem Neutropenia, unspecified type D70.9 Active 431927365 Problem Other chronic pain G89.29 Active 10070595 ALLERGIES No Information ENCOUNTERS Encounter Location Date Diagnosis [facility] [id number] [address] Dec, Other chronic pain G89.29 [facility] [id number] [address] Nov, Other chronic pain G89.29 [facility] [id number] [address] Nov, [facility] [id number] [address] Nov, [facility] [id number] [place] [address] 78055- 9617 October, Other chronic pain G89.29 ; Pain in right knee M25.561 ; Pain in left knee M25.562 and Abdominal pain, left lower quadrant R10.32 [facility] [id number] [place] [address] 06629- 0979 October, [facility] [id number] [place] [address] 49204- 4618 October, Splenomegaly R16.1 ; Neutropenia, unspecified type D70.9 and Temporary low platelet count D69.6 [facility] IN [facility] [id number] [place] [address] 18379 -3871 October, [facility] [id number] [place] [address] 99734- 0057 October, Pancytopenia D61.818 [facility] [id number] [place] [address] 25531- 6290 October, [facility] [id number] [place] [address] 64144- 9770 October, [facility] [id number] [place] [address] 43897- 1770 October, Pancytopenia D61.818 [facility] [id number] [place] [address] 95640- 0092 Sep, Other chronic pain G89.29 ; Pain in left knee M25.562 ; Pain in right knee M25.561 and Abdominal pain, left lower quadrant R10.32 [place] [id number] [place] [address] 76625- 8899 Sep, Edema of left lower extremity R60.0 ; Essential hypertension I10 ; Morbid (severe) obesity due to excess calories E66.01 ; Body mass index (BMI) of 40.0-44.9 in adult Z68.41 and Hiatal hernia K44.9 [facility] [id number] [place] [address] 28546- 9870 Aug, [place] [id number] [place] [address] 45894- 6561 Aug, [place] [address] [address]- 7616 Jul, Pain in right shoulder M25.511 [place] [address] 96836- 1068 Jul, [facility] [place] [id number] [place] [address] 19423 -9764 Jul, Localized edema R60.0 and BMI 40.0-44.9, adult Z68.41 [place] [address] 43931- 6508 Jul, [place] [id number] [place] [address] 30094- 2830 Jun, Edema of left lower extremity R60.0 ; Essential hypertension I10 ; Family history of coronary artery disease Z82.49 ; Morbid ( severe) obesity due to excess calories E66.01 and Body mass index (BMI) of 45.0- 49.9 in adult Z68.42 [place] [id number] [place] [address] 48279- 1347 Jun, Other chronic pain G89.29 [place] [id number] [place] [address] 98889- 0385 Jun, Pain in right shoulder M25.511 [place] [id number] [place] [address] 27306- 1254 Jun, Other ulcerative colitis without complication K51.80 [facility] [place] [id number] [place] [address] 11040 -6271 May, [place] [id number] [place] [address] 48405- 3504 May, GERD with esophagitis K21.0 ; Other ulcerative colitis without complication K51.80 and Other chest pain R07.89 [facility] [address] [address] May, [facility] [id number] [place] [address] 94669 2546 May, Left leg swelling M79.89 [facility] [id number] [place] [address] 84910- 0746 Apr, Pain in right shoulder M25.511 [facility] [id number] [place] [address] 52035- 9022 Apr, Pain in right shoulder M25.511 [facility] [id number] [place] [address] 01303- 3786 Mar, [facility] [id number] [place] [address] 81125- 7913 Mar, Pain in right shoulder M25.511 [facility] [id number] [place] [address] 02298- 4404 Mar, [facility] [id number] [place] [address] 85597- 3085 Mar, [facility] [id number] [place] [address] 43455- 8337 Feb, Pain in right shoulder M25.511 [facility] [id number] [place] [address] 67977- 9517 Jan, Pain in right shoulder M25.511 [facility] [id number] [address] 2066 Jan, [facility] [id number] [place] [address] 96033- 8408 Dec, Pain in right shoulder M25.511 [facility] [id number] [place] [address] 22236 2546 Nov, Pain in right shoulder M25.511 [facility] [id number] [place] [address] 34117- 6841 Nov, Pain in right shoulder M25.511 [facility] [id number] [place] [address] 95510- 5661 October, Pain in right shoulder M25.511 [facility] [id number] [place] [address] 27045- 8509 Sep, Pain in right shoulder M25.511 [facility] [id number] [place] [address] 60181- 4943 Aug, Pain in right shoulder M25.511 [facility] [id number] [place] [address] 76494- 5796 Jul, Pain in right shoulder M25.511 [facility] [id number] [place] [address] 79333- 6510 Jul, Pain in left shoulder M25.512 [facility] [id number] [place] [address] 51217- 4836 Jul, Other chronic pain G89.29 [facility] [id number] [place] [address] 98063- 4262 Jul, Pain in right shoulder M25.511 ; Other chronic pain G89.29 ; Pain in left shoulder M25.512 and Gastroesophageal reflux disease with esophagitis K21.0 [facility] [id number] [place] [address] 71872- 5168 Jun, [facility] [id number] [place] [address] 59744- 5277 May, [facility] [id number] [place] [address] 64346- 4814 May, [facility] [id number] [place] [address] 45896- 3175 15 Apr, 2016 [facility] [id number] [place] [address] 85106- 7924 Mar, [facility] [address] [address]- 0512 22 Feb, 2016 [facility] [id number] [place] [address] 24046- 6807 13 Feb, 2016 [facility] [address] [address]- 8082 12 Feb, 2016 [facility] [id number] [place] [address] 25981- 1991 06 Feb, 2016 [facility] [id number] [place] [address] 79894- 0285 Jan, [facility] [id number] [place] [address] 13092- 9688 Dec, Pain in left shoulder M25.512 [facility] [id number] [place] [address] 10323- 6523 Dec, Gastroesophageal reflux disease, esophagitis presence not specified K21.9 [facility] [id number] [place] [address] 31192- 1282 Nov, Pain in left shoulder M25.512 [facility] [id number] [place] [address] 63276- 1301 October, Pain in left shoulder M25.512 [facility] [id number] [place] [address] 90331- 7084 Sep, Shoulder pain, left M25.512 [facility] [id number] [place] [address] 31668- 3942 Aug, Pain in right shoulder M25.511 and Other chronic pain G89.29 [facility] [id number] [place] [address] 46105- 1049 Aug, Shoulder pain, right M25.511 and GERD (gastroesophageal reflux disease) K21.9 [facility] [address] [address]- 2106 Nov, [facility] [address] [address]- 8909 14 Sep, 2014 [facility] [place] [facility] [address] [id number] [place] [address]- 1074 13 Sep, 2014 [facility] [place] [facility] [address] [id number] [place] [address]- 5783 Jul, 2014 [facility] [place] [facility] [address] [id number] [place] [address]- 7433 Jul, 2014 [facility] [place] [facility] [address] [id number] [place] [address]- 1753 Jul, 2014 [facility] [place] [facility] [address] [id number] [place] [address]- 7251 Jul, 2014 [facility] [place] [facility] [address] [id number] [place] [address]- 7353 Jul, [facility] [place] [facility] [address] [id number] [place] [address]- 5428 Jul, [facility] [place] [facility] [address] [id number] [place] [address]- 4376 Jun, [facility] [place] [facility] [address] [id number] [place] [address]- 7717 Jun, [facility] [place] [facility] [address] [id number] [place] [address]- 9960 Apr, [facility] [place] [facility] [address] [id number] [place] [address]- 6395 Apr, [facility] [place] [facility] [address] [id number] [place] [address]- 9066 Apr, [facility] [place] [facility] [address] [id number] [place] [address]- 3542 Feb, [facility] [place] [facility] [address] [id number] [place] [address]- 9691 Feb, [facility] [place] [facility] [address] [id number] [place] [address]- 7169 Feb, [facility] [place] [facility] [address] [id number] [place] [address]- 2617 Feb, [facility] [place] [facility] [address] [id number] [place] [address]- 5880 Aug, [facility] [place] [facility] [address] [id number] [place] [address]- 6365 Aug, [facility] [place] [facility] [address] [id number] [place] [address]- 2467 Mar, [facility] [place] [facility] [address] [id number] [place] [address]- 4869 Mar, [facility] [place] [facility] [address] [id number] [place] [address]- 4217 Mar, [facility] [place] [facility] [address] [id number] [place] [address]- 5517 Mar, [facility] [place] [facility] [address] [id number] [place] [address]- 0180 Feb, [facility] [place] [facility] [address] [id number] [place] [address]- 8316 06 Feb, 2013 [facility] [place] [facility] [address] [id number] [place] [address]- 3775 Feb, [facility] [place] [facility] [address] [id number] [place] [address]- 6593 30 Jan, 2013 [facility] [place] [facility] [address] [id number] [place] [address]- 3810 Jan, [facility] [place] [facility] [address] [id number] [place] [address]- 4234 Dec, [facility] [place] [facility] [address] [id number] [place] [address]- 0349 Dec, [facility] [place] [facility] [address] [id number] [place] [address]- 6612 Nov, [facility] [place] [facility] [id number] [address]- 2546 14 Nov, 2012 [facility] [address] [address]- 5436 Jan, [facility] [address] [address]- 2546 Jan, [facility] [address] [address]- 9496 Aug, [facility] [address] [address]- 2546 Jun, [facility] [address] [address]- 8186 Jun, [facility] [address] [address]- 2676 Apr, [facility] [address] [address]- 0871 17 Feb, 2010 IMMUNIZATIONS No Known Immunizations SOCIAL HISTORY Never Assessed REASON FOR VISIT lab orders PLAN OF CARE VITAL SIGNS MEDICATIONS Unknown Medications RESULTS No Results PROCEDURES No Known procedures INSTRUCTIONS MEDICATIONS ADMINISTERED No Known Medications MEDICAL (GENERAL) HISTORY Type Description Date Medical History colitis Medical History right shoulder pain Surgical History Appendectomy Surgical History Abscess drained and removed Hospitalization History surgery Hospitalization History dehydration Hospitalization History chest pain, pancytopenia, slenomegaly-[facility] 10/25/17
--- OUTSIDE RECORDS SUMMARY | 2018-06-13 15:47 | XMS REPORT ---
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 Role Phone ISAAC PANCHALMERRILL Unavailable PROBLEMS Type Condition ICD9-CM Code DEQ05-MJ Code Onset Dates Condition Status SNOMED Code Problem GERD with esophagitis K21.0 Active 304096246 Problem Morbid (severe) obesity due to excess calories E66.01 Active 73855819962131 Problem Essential hypertension I10 Active 93759527 Problem Other chronic pain G89.29 Active 88455084 Problem Gastroesophageal reflux disease with esophagitis K21.0 Active 051948835 Problem Other ulcerative colitis without complication K51.80 Active 32256197 Problem Pancytopenia D61.818 Active 738852870 Problem Temporary low platelet count D69.6 Active 875066695 Problem Body mass index (BMI) of 40.0-44.9 in adult Z68.41 Active 111415998 Problem Body mass index (BMI) of 45.0-49.9 in adult Z68.42 Active 801901102 Problem Neutropenia, unspecified type D70.9 Active 201380195 Problem Other chronic pain G89.29 Active 38970429 ALLERGIES Substance Reaction Event Type Date Status Morphine Sulfate nausea and vomiting Drug Allergy Sep, Active ENCOUNTERS Encounter Location Date Diagnosis [facility] [id number] [address] Jan, [facility] [id number], [place] [address] Dec, Other chronic pain G89.29 [facility] [id number] [address] Nov, Other chronic pain G89.29 [facility] [address] [facility] [id number] [address] Nov, [facility] [address] [address] Nov, [facility] [id number] [place] [address]37- 4139 October, Other chronic pain G89.29 ; Pain in right knee M25.561 ; Pain in left knee M25.562 and Abdominal pain, left lower quadrant R10.32 [facility] [id number] [place] [address] 26899- 8598 October, [facility] [id number] [place] [address] 74135- 4659 October, Splenomegaly R16.1 ; Neutropenia, unspecified type D70.9 and Temporary low platelet count D69.6 [facility] [id number] [address] October, [facility] [id number] [place] [address] 34373- 7956 October, Pancytopenia D61.818 [facility] [id number] [place] [address] 36105- 9456 October, [place] [id number] [place] [address] 04543- 4904 October, [facility] [address], [place] [address] 390[address] October, Pancytopenia D61.818 [facility] [id number] [place] [address] 78514- 4811 Sep, Other chronic pain G89.29 ; Pain in left knee M25.562 ; Pain in right knee M25.561 and Abdominal pain, left lower quadrant R10.32 [facility] [address], [place] [address] Sep, Edema of left lower extremity R60.0 ; Essential hypertension I10 ; Morbid (severe) obesity due to excess calories E66.01 ; Body mass index (BMI) of 40.0-44.9 in adult Z68.41 and Hiatal hernia K44.9 [place] [id number] [place] [address] 08763- 0639 Aug, [place] [address] [address]- [address] Aug, [place] [address] [address]- [address]204 Jul, Pain in right shoulder M25.511 [address] [address] [address]- 8037 Jul, [facility] [address] [address] Jul, Localized edema R60.0 and BMI 40.0-44.9, adult Z68.41 [place] [address] [address]- 7041 Jul, [place] [id number] [place] [address] 97058- 2232 Jun, Edema of left lower extremity R60.0 ; Essential hypertension I10 ; Family history of coronary artery disease Z82.49 ; Morbid ( severe) obesity due to excess calories E66.01 and Body mass index (BMI) of 45.0- 49.9 in adult Z68.42 [place] [id number] [place] [address] 02917- 1483 Jun, Other chronic pain G89.29 [place] [id number] [place] [address] 73884- 5217 Jun, Pain in right shoulder M25.511 [place] [id number] [place] [address] 00474- 8313 Jun, Other ulcerative colitis without complication K51.80 [facility] [place] [id number] [place] [address] 85309 -6301 May, [place] [id number] [address] May, GERD with esophagitis K21.0 ; Other ulcerative colitis without complication K51.80 and Other chest pain R07.89 [facility] [id number], [place] [address] May, [facility] [id number] [place] [address] 35088 -5676 May, Left leg swelling M79.89 [facility] [id number] [place] [address] 00284 2548 Apr, Pain in right shoulder M25.511 [facility] [id number] [place] [address] 38234- 8636 Apr, Pain in right shoulder M25.511 [facility] [id number] [place] [address] 84065- 8236 Mar, [facility] [id number] [place] [address] 42398- 1336 Mar, Pain in right shoulder M25.511 [facility] [id number] [place] [address] 11923- 3736 Mar, [facility] [id number] [place] [address] 64173- 7693 Mar, [facility] [id number] [place] [address] 85612- 8702 Feb, Pain in right shoulder M25.511 [facility] [id number] [place] [address] 48606- 0371 Jan, Pain in right shoulder M25.511 [facility] [id number] [place] [address] 28051- 2546 Jan, [facility] [id number] [place] [address] 48562- 4541 Dec, Pain in right shoulder M25.511 [facility] [id number] [place] [address] 95364- 9822 Nov, Pain in right shoulder M25.511 [facility] [id number] [place] [address] 59292- 3080 Nov, Pain in right shoulder M25.511 [facility] [id number] [place] [address] 49252- 8140 October, Pain in right shoulder M25.511 [facility] [id number] [place] [address] 62786- 8092 Sep, Pain in right shoulder M25.511 [facility] [id number] [place] [address] 66318- 1972 Aug, Pain in right shoulder M25.511 [facility] [id number] [place] [address] 67970- 3397 Jul, Pain in right shoulder M25.511 [facility] [id number] [place] [address] 97164- 5593 Jul, Pain in left shoulder M25.512 [facility] [id number] [place] [address] 92415- 9698 Jul, Other chronic pain G89.29 [facility] [id number] [place] [address] 79244- 4606 Jul, Pain in right shoulder M25.511 ; Other chronic pain G89.29 ; Pain in left shoulder M25.512 and Gastroesophageal reflux disease with esophagitis K21.0 [facility] [id number] [place] [address] 70891- 8095 Jun, [facility] [id number] [place] [address] 50684- 2708 May, [facility] [id number] [place] [address] 88064- 3988 May, [facility] [id number] [place] [address] 65593- 2546 15 Apr, 2016 [facility] [address], [place] [address]- 1115 Mar, [facility] [address] [place] [address] 24490- 5146 22 Feb, 2016 [facility] [id number] [place] [address] 95622- 2007 13 Feb, 2016 [facility] [id number] [place] [address] 29615- 0987 12 Feb, 2016 [facility] [id number] [place] [address] 990607- 5994 06 Feb, 2016 [facility] [id number] [place] [address] 920808- 1011 Jan, [facility] [id number] [place] [address] 69222- 5394 Dec, Pain in left shoulder M25.512 [facility] [id number] [place] [address] 31164- 0644 Dec, Gastroesophageal reflux disease, esophagitis presence not specified K21.9 [facility] [id number] [place] [address] 32253- 8724 Nov, Pain in left shoulder M25.512 [facility] [id number] [place] [address] 10779- 0444 October, Pain in left shoulder M25.512 [facility] [address] [place] [address] 33102- 9457 Sep, Shoulder pain, left M25.512 [facility] [id number] [place] [address] 135125- 8220 Aug, Pain in right shoulder M25.511 and Other chronic pain G89.29 [facility] [address] [place] [address] 96271- 7024 Aug, Shoulder pain, right M25.511 and GERD (gastroesophageal reflux disease) K21.9 [facility] [address] [facility] [id number] [place] [address]- 7711 08 Nov, 2014 [facility] [address] [facility] [id number] [place] [address]- 0096 14 Sep, 2014 [facility] [address] [place] [address]- 5448 Sep, [facility] [address] [facility] [id number] [place] [address]- 3081 Jul, [facility] [address] [facility] [id number] [place] [address]- 9654 Jul, [facility] [id number] [place] [address]- 3559 Jul, [facility] [address] [place] [address]- 6428 Jul, [facility] [address] [place] [place] [address]- 8444 Jul, [facility] [address] [place] [address]- 9474 Jul, [facility] [address] [place] [address]- 1685 Jun, [facility] [address], [place] [address]- 8905 Jun, [facility] [address], [place] [address]- 3589 Apr, [facility] [address], [place] [address]- 8351 Apr, [facility] [id number] [place] [address]- 7744 Apr, [facility] [id number] [place] [address]- 5331 Feb, [facility] [place] [facility] [address] [id number] [place] [address]- 4451 12 Feb, 2013 [facility] [place] [facility] [address] [id number] [place] [address]- 2741 11 Feb, 2013 [facility] [place] [facility] [address] [id number] [place] [address]- 1266 Feb, 2013 [facility] [place] [facility] [address] [id number] [place] [address]- 2072 Aug, [facility] [place] [facility] [address] [id number] [place] [address]- 4357 Aug, [facility] [place] [facility] [address] [id number] [place] [address]- 1528 Mar, [facility] [place] [facility] [address] [id number] [place] [address]- 0767 Mar, [facility] [place] [facility] [address] [id number] [place] [address]- 4599 Mar, [facility] [place] [facility] [address] [id number] [place] [address]- 9124 Mar, [facility] [place] [facility] [address] [id number] [place] [address]- 2463 Feb, [facility] [place] [facility] [address] [id number] [place] [address]- 7989 Feb, [facility] [place] [facility] [address] [id number] [place] [address]- 4518 Feb, [facility] [place] [facility] [address] [id number] [place] [address]- 3570 Jan, [facility] [place] [facility] [address] [id number] [place] [address]- 9026 Jan, [facility] [place] [facility] [address] [id number] [place] [address]- 9306 Dec, [facility] [place] [facility] [address] [id number] [place] [address]- 2183 Dec, [facility] [id number] [address]- 2486 Nov, [facility] [address], [place] [address]- 5406 Nov, [facility] [id number] [address]- 2966 Jan, [facility] [address], [place] [address]- 5306 Jan, [facility] [address], [place] [address]- 4516 Aug, [facility] [address] [address]- 4076 Jun, [facility] [address], [place] [address]- 0296 Jun, [facility] [address], [place] [address]- 1844 Apr, [facility] [id number] [address]- 4115 Feb, IMMUNIZATIONS No Known Immunizations SOCIAL HISTORY Never Assessed REASON FOR VISIT 2 month [facility] Activity Details Follow Up 1 Year Reason: VITAL SIGNS Height 69 in 2017-10-08 Temperature 98.4 degrees Fahrenheit 2017-10-08 Heart Rate 88 bpm 2017-10-08 Respiratory Rate 18 2017-10-08 Blood pressure systolic 112 mmHg 2017-10-08 Blood pressure diastolic 74 mmHg 2017-10-08 MEDICATIONS Medication Instructions Dosage Frequency Start Date End Date Duration Status Protonix 40 mg 1 tablet 24h Active Dicyclomine HCl 20 mg Orally Four times a day 1 tablet 6h May, Sep, 30 day(s) Active RESULTS No Results PROCEDURES No Known procedures INSTRUCTIONS MEDICATIONS ADMINISTERED No Known Medications MEDICAL (GENERAL) HISTORY Type Description Date Medical History colitis Medical History right shoulder pain Surgical History Appendectomy Surgical History Abscess drained and removed Hospitalization History surgery Hospitalization History dehydration Hospitalization History chest pain, pancytopenia, slenomegaly-[facility] 10/25/17
--- OUTSIDE RECORDS SUMMARY | 2018-06-13 15:48 | XMS REPORT ---
Author Author AMY HALEY Organization [facility] Address [address] [place] [address] Care Team Providers Care Team Assistant Name Role Phone AMY HALEY Unavailable PROBLEMS Type Condition ICD9-CM Code ZPR37-CT Code Onset Dates Condition Status SNOMED Code Problem GERD with esophagitis K21.0 Active 443041722 Problem Morbid (severe) obesity due to excess calories E66.01 Active 72698691926053 Problem Essential hypertension I10 Active 41499384 Problem Other chronic pain G89.29 Active 34045424 Problem Gastroesophageal reflux disease with esophagitis K21.0 Active 146708693 Problem Other ulcerative colitis without complication K51.80 Active 22872475 Problem Pancytopenia D61.818 Active 761226525 Problem Temporary low platelet count D69.6 Active 753895259 Problem Body mass index (BMI) of 40.0-44.9 in adult Z68.41 Active 020119083 Problem Body mass index (BMI) of 45.0-49.9 in adult Z68.42 Active 474840932 Problem Neutropenia, unspecified type D70.9 Active 830969292 Problem Other chronic pain G89.29 Active 20573828 ALLERGIES No Information ENCOUNTERS Encounter Location Date Diagnosis [facility] [address] [address] Jan, [facility] [id number] [place] [address] 81766- 6270 Dec, Other chronic pain G89.29 [facility] [id number] [place] [address] 20128- 0746 Nov, Other chronic pain G89.29 [facility] [id number] [place] [address] 32455- 2596 Nov, [facility] [id number] [place] [address] 26406- 0871 Nov, [facility] [id number] [place] [address] 79167- 3200 October, Other chronic pain G89.29 ; Pain in right knee M25.561 ; Pain in left knee M25.562 and Abdominal pain, left lower quadrant R10.32 [facility] [id number] [place] [address] 21507- 2036 October, [facility] [address] [address]- [address] October, Splenomegaly R16.1 ; Neutropenia, unspecified type D70.9 and Temporary low platelet count D69.6 [facility] [id number] [place] [address] 38399 -0826 October, [facility] [id number] [place] [address] 91607- 5134 October, Pancytopenia D61.818 [facility] [id number] [place] [address] 19232- 9973 October, [facility] [id number] [place] [address] 39073- 0028 October, [facility] [id number] [place] [address] 55272- 4128 October, Pancytopenia D61.818 [facility] [id number] [place] [address] 11985- 1055 Sep, Other chronic pain G89.29 ; Pain in left knee M25.562 ; Pain in right knee M25.561 and Abdominal pain, left lower quadrant R10.32 [facility] [id number] [place] [address] 96084- 2085 Sep, Edema of left lower extremity R60.0 ; Essential hypertension I10 ; Morbid (severe) obesity due to excess calories E66.01 ; Body mass index (BMI) of 40.0-44.9 in adult Z68.41 and Hiatal hernia K44.9 [facility] [id number] [place] [address] 99238- 2588 Aug, [facility] [address] 8[address]39- 4941 Aug, [facility] [id number] [place] [address] 64775- 8483 Jul, Pain in right shoulder M25.511 [facility] [address] [address]- 1972 Jul, [facility] [address] [address] Jul, Localized edema R60.0 and BMI 40.0-44.9, adult Z68.[address] [address]- [address]16 Jul, [facility] [address] 80389- 1998 Jun, Edema of left lower extremity R60.0 ; Essential hypertension I10 ; Family history of coronary artery disease Z82.49 ; Morbid ( severe) obesity due to excess calories E66.01 and Body mass index (BMI) of 45.0- 49.9 in adult Z68.42 [facility] [id number] [place] [address] 38092- 2482 Jun, Other chronic pain G89.29 [facility] [id number] [place] [address] 27439- 6193 Jun, Pain in right shoulder M25.511 [facility] [id number] [place] [address] 58123- 6241 Jun, Other ulcerative colitis without complication K51.80 [facility] [id number] [place] [address] 94166 -2114 May, [facility] [address] 09582- 8886 May, GERD with esophagitis K21.0 ; Other ulcerative colitis without complication K51.80 and Other chest pain R07.89 [facility] [id number] [place] [address] 92300- 3446 May, [facility] [id number] [place] [address] 03563 -6516 May, Left leg swelling M79.89 [facility] [id number] [place] [address] 97460- 1869 Apr, Pain in right shoulder M25.511 [facility] [id number] [place] [address] 91647- 1416 Apr, Pain in right shoulder M25.511 [facility] [id number] [place] [address] 49539- 2776 Mar, [facility] [id number] [place] [address] 94364- 5983 Mar, Pain in right shoulder M25.511 [facility] [id number] [place] [address] 58933- 4386 Mar, [facility] [id number] [place] [address] 95396- 3286 Mar, [facility] [id number] [place] [address] 61767- 7123 Feb, Pain in right shoulder M25.511 [facility] [id number] [place] [address] 63811- 8051 Jan, Pain in right shoulder M25.511 [facility] [id number] [place] [address] 71381- 0896 Jan, [facility] [id number] [place] [address] 40593- 1006 Dec, Pain in right shoulder M25.511 [facility] [id number] [place] [address] 32776- 6315 Nov, Pain in right shoulder M25.511 [facility] [id number] [address]- 4915 Nov, Pain in right shoulder M25.511 [facility] [id number] [place] [address] 21911- 7434 October, Pain in right shoulder M25.511 [facility] [id number] [place] [address] 44889- 7464 Sep, Pain in right shoulder M25.511 [facility] [id number] [place] [address] 53167- 8659 Aug, Pain in right shoulder M25.511 [facility] [id number] [place] [address] 24091- 2775 10 Jul, 2016 Pain in right shoulder M25.511 [facility] [id number] [place] [address] 01056- 2962 Jul, Pain in left shoulder M25.512 [facility] [id number] [address] 3679 Jul, Other chronic pain G89.29 [facility] [id number] [place] [address] 79798- 0581 09 Jul, 2016 Pain in right shoulder M25.511 ; Other chronic pain G89.29 ; Pain in left shoulder M25.512 and Gastroesophageal reflux disease with esophagitis K21.0 [facility] [address] [address]- 1522 Jun, [facility] [id number] [place] [address] 35843- 1958 May, [facility] [id number] [place] [address] 09154- 7957 May, [facility] [address] [address]- 3945 Apr, [facility] [address] [address]- 3766 13 Mar, 2016 [facility] [id number] [place] [address] 72203- 2202 22 Feb, 2016 [facility] [id number] [place] [address] 59345- 7576 13 Feb, 2016 [facility] [id number] [place] [address] 88141- 9383 12 Feb, 2016 [facility] [id number] [place] [address] 90818- 7687 06 Feb, 2016 [facility] [id number] [place] [address] 50925- 7383 Jan, [facility] [id number] [place] [address] 41959- 9168 Dec, Pain in left shoulder M25.512 [facility] [id number] [place] [address] 56620- 0656 Dec, Gastroesophageal reflux disease, esophagitis presence not specified K21.9 [facility] [id number] [place] [address] 27888- 2876 Nov, Pain in left shoulder M25.512 [facility] [address] [place] [address] 90968- 9091 October, Pain in left shoulder M25.512 [facility] [id number] [place] [address] 84047- 3894 Sep, Shoulder pain, left M25.512 [facility] [id number] [place] [address] 01820- 4076 Aug, Pain in right shoulder M25.511 and Other chronic pain G89.29 [facility] [address] [place] [address] 89944- 3678 Aug, Shoulder pain, right M25.511 and GERD (gastroesophageal reflux disease) K21.9 [facility] [id number] [address] 08 Nov, 2014 [facility] [place] [facility] [address] [id number] [place] [address]- 8914 14 Sep, 2014 [facility] [place] [facility] [address] [id number] [place] [address]- 9006 13 Sep, 2014 [facility] [place] [facility] [address] [id number] [place] [address]- 4244 Jul, 2014 [facility] [place] [facility] [address] [id number] [place] [address]- 8553 Jul, 2014 [facility] [place] [facility] [address] [id number] [place] [address]- 6647 Jul, 2014 [facility] [place] [facility] [address] [id number] [place] [address]- 6745 Jul, [facility] [place] [facility] [address] [id number] [place] [address]- 2128 Jul, [facility] [place] [facility] [address] [id number] [place] [address]- 5439 Jul, [facility] [place] [facility] [address] [id number] [place] [address]- 9359 Jun, [facility] [place] [facility] [address] [facility] [id number] [place] [address]- 0680 Jun, [facility] [place] [facility] [address] [id number] [place] [address]- 2242 Apr, [facility] [place] [facility] [address] [id number] [place] [address]- 5255 Apr, [facility] [place] [facility] [address] [id number] [place] 3410 Apr, [facility] [place] [facility] [address] [id number] [place] 2192 Feb, [facility] [place] [facility] [address] [facility] [id number] [place] 4365 Feb, [facility] [place] [facility] [address] [id number] [place] [address]- 6179 Feb, [facility] [place] [facility] [address] [id number] [place] [address]- 4579 Feb, [facility] [place] [facility] [address] [id number] [place] [address]- 4275 Aug, [facility] [place] [facility] [address] [id number] [place] [address]- 2069 Aug, [facility] [place] [facility] [address] [id number] [place] [address]- 8614 Mar, [facility] [place] [facility] [address] [id number] [place] [address]- 8502 Mar, [facility] [place] [facility] [address] [id number] [place] [address]- 5031 Mar, [facility] [place] [facility] [address] [id number] [place] [address]- 3678 Mar, [facility] [place] [facility] [address] [id number] [place] [address]- 4094 Feb, [facility] [place] [facility] [address] [id number] [place] [address]- 6808 06 Feb, 2013 [facility] [place] [facility] [address] [id number] [place] [address]- 5262 Feb, [facility] [place] [facility] [address] [id number] [place] [address]- 1218 Jan, [facility] [place] [facility] [address] [id number] [place] [address]- 6884 Jan, [facility] [place] [facility] [address] [id number] [place] [address]- 2488 Dec, [facility] [place] [facility] [address] [id number] [place] [address]- 6822 Dec, [facility] [place] [facility] [id number] [address]- 4806 Nov, [facility] [id number] [address]- 6359 Nov, [facility] [id number] [address]- 5305 Jan, [facility] [address] [address]- 9830 Jan, [facility] [address] [address]- 9281 Aug, [facility] [address] [address]- 5595 Jun, [facility] [address] [address]- 9345 Jun, [facility] [address], [place] [address]- 3237 Apr, [facility] [id number] [address]- 0320 17 Feb, 2010 IMMUNIZATIONS No Known Immunizations SOCIAL HISTORY Never Assessed REASON FOR VISIT Requests return call PLAN OF CARE VITAL SIGNS MEDICATIONS Unknown Medications RESULTS No Results PROCEDURES No Known procedures INSTRUCTIONS MEDICATIONS ADMINISTERED No Known Medications MEDICAL (GENERAL) HISTORY Type Description Date Medical History colitis Medical History right shoulder pain Surgical History Appendectomy Surgical History Abscess drained and removed Hospitalization History surgery Hospitalization History dehydration Hospitalization History chest pain, pancytopenia, slenomegaly-[facility] 10/25/17
--- OUTSIDE RECORDS SUMMARY | 2018-06-13 15:48 | XMS REPORT ---
Author Author AMY HALEY Organization [facility] Address [address] [place] [address] Care Team Providers Care Administrative Fellow Name Role Phone AMY HALEY Unavailable PROBLEMS Type Condition ICD9-CM Code CRY77-IY Code Onset Dates Condition Status SNOMED Code Problem Gastroesophageal reflux disease with esophagitis K21.0 Active 302508620 Problem GERD with esophagitis K21.0 Active 649736072 Problem Other ulcerative colitis without complication K51.80 Active 22266721 Problem Other chronic pain G89.29 Active 73220784 Problem Pancytopenia D61.818 Active 702807641 Problem Other chronic pain G89.29 Active 11537314 Problem Morbid (severe) obesity due to excess calories E66.01 Active 26523339535651 Problem Essential hypertension I10 Active 76067070 Problem Body mass index (BMI) of 40.0-44.9 in adult Z68.41 Active 711309394 Problem Body mass index (BMI) of 45.0-49.9 in adult Z68.42 Active 484783727 ALLERGIES No Information ENCOUNTERS Encounter Location Date Diagnosis [facility] [id number] [place] [address] 98991- 6039 31 Oct, 2017 [facility] [id number] [place] [address] 97143- 7870 14 Oct, 2017 [facility] [id number] [place] [address] 80558 -2445 October, [facility] [address] 77409- 9889 11 Oct, 2017 Pancytopenia D61.818 [facility] [id number] [place] [address] 55745- 3749 10 Oct, 2017 [facility] [address] 77375- 8778 October, [facility] [id number] [place] [address] 23020- 2317 October, Pancytopenia D61.818 [facility] [id number] [place] [address] 95409- 1885 Sep, Other chronic pain G89.29 ; Pain in left knee M25.562 ; Pain in right knee M25.561 and Abdominal pain, left lower quadrant R10.32 [facility] [id number] [place] [address] 77444- 4361 Sep, Edema of left lower extremity R60.0 ; Essential hypertension I10 ; Morbid (severe) obesity due to excess calories E66.01 ; Body mass index (BMI) of 40.0-44.9 in adult Z68.41 and Hiatal hernia K44.9 [facility] [id number] [place] [address] 56782- 9744 Aug, [facility] [id number] [place] [address] 77505- 1857 Aug, [facility] [id number] [place] [address] 14704- 2059 Jul, Pain in right shoulder M25.511 [facility] [id number] [place] [address] 59915- 9520 Jul, [facility] [id number] [place] [address] 26983 -7235 Jul, Localized edema R60.0 and BMI 40.0-44.9, adult Z68.41 [facility] [id number] [place] [address] 34395- 5187 Jul, [facility] [id number] [place] [address] 71264- 6516 Jun, Edema of left lower extremity R60.0 ; Essential hypertension I10 ; Family history of coronary artery disease Z82.49 ; Morbid ( severe) obesity due to excess calories E66.01 and Body mass index (BMI) of 45.0- 49.9 in adult Z68.42 [facility] [id number] [place] [address] 43352- 7928 16 Jun, 2017 Other chronic pain G89.29 [facility] [id number] [place] [address] 64292- 2909 15 Jun, 2017 Pain in right shoulder M25.511 [facility] [facility] [address] 61570- 9579 Jun, Other ulcerative colitis without complication K51.80 [facility] [id number] [place] [address] 92747 -7859 May, [facility] [id number] [place] [address] 63456- 6770 May, GERD with esophagitis K21.0 ; Other ulcerative colitis without complication K51.80 and Other chest pain R07.89 [facility] [id number] [place] [address] 05485- 4459 May, [facility] [address] 27975 -8202 May, Left leg swelling M79.89 [facility] [id number] [place] [address] 23469- 7951 14 Apr, 2017 Pain in right shoulder M25.511 [facility] [id number] [place] [address] 11274- 4722 Apr, Pain in right shoulder M25.511 [facility] [id number] [place] [address] 96071- 0152 Mar, [facility] [address] 13047- 9305 Mar, Pain in right shoulder M25.511 [facility] [id number] [place] [address] 00346- 8599 Mar, [facility] [address] [address] 5786 Mar, [facility] [id number] [place] [address] 63339- 5636 Feb, Pain in right shoulder M25.511 [facility] [address] [address] 8186 Jan, Pain in right shoulder M25.511 [facility] [id number] [place] [address] 78212- 3776 Jan, [facility] [id number] [place] [address] 41138- 2666 Dec, Pain in right shoulder M25.511 [facility] [id number] [place] [address] 58024 2546 Nov, Pain in right shoulder M25.511 [facility] [id number] [place] [address] 90949- 4886 Nov, Pain in right shoulder M25.511 [facility] [address] [place] [address] 98005- 0112 October, Pain in right shoulder M25.511 [facility] [id number] [place] [address] 37239- 1513 Sep, Pain in right shoulder M25.511 [facility] [id number] [address]- 1873 Aug, Pain in right shoulder M25.511 [facility] [address] [address]- 0091 Jul, Pain in right shoulder M25.511 [facility] [id number] [address]- 0796 10 Jul, 2016 Pain in left shoulder M25.512 [facility] [address] [address]- 5186 10 Jul, 2016 Other chronic pain G89.29 [facility] [address] [address]- 6211 Jul, Pain in right shoulder M25.511 ; Other chronic pain G89.29 ; Pain in left shoulder M25.512 and Gastroesophageal reflux disease with esophagitis K21.0 [facility] [address] [place] [address] 93760- 1305 Jun, [facility] [id number] [place] [address] 45270- 9066 May, [facility] [id number] [place] [address] 37980- 4705 May, [facility] [id number] [place] [address] 77487- 1104 Apr, [facility] [id number] [place] [address] 45023- 2733 Mar, [facility] [id number] [place] [address] 98863- 2666 Feb, [facility] [id number] [place] [address] 91579- 0450 Feb, [facility] [id number] [place] [address] 60464- 1302 Feb, [facility] [address] [place] [address] 36137- 9226 Feb, [facility] [id number] [place] [address] 18104 2542 Jan, [facility] [address] [place] [address] 48475- 6697 Dec, Pain in left shoulder M25.512 [facility] [id number] [place] [address] 244076- 4507 Dec, Gastroesophageal reflux disease, esophagitis presence not specified K21.9 [facility] [id number] [place] [address] 49962- 9599 Nov, Pain in left shoulder M25.512 [facility] [address], [place] [address]- 8163 October, Pain in left shoulder M25.512 [facility] [address] [place] [address] 24225- 5466 Sep, Shoulder pain, left M25.512 [facility] [id number] [place] [address] 08033- 2931 Aug, Pain in right shoulder M25.511 and Other chronic pain G89.29 [facility] [id number] [place] [address] 08603- 4180 Aug, Shoulder pain, right M25.511 and GERD (gastroesophageal reflux disease) K21.9 [facility] [id number] [place] [address] 83576- 4120 Nov, [facility] [id number] [place] [address] 20144- 5867 Sep, [facility] [address] [place] [address] 72078- 3262 Sep, [facility] [id number] [place] [address] 72707- 7158 Jul, [facility] [address] [address]- 3108 Jul, [facility] [id number] [place] [address] 13108- 3344 Jul, [facility] [address] [place] [address] 56465- 8977 Jul, [facility] [id number] [place] [address] 91739- 2626 Jul, [facility] [address] [place] [address] 537784- 5323 Jul, [facility] [id number] [address]- 7514 16 Jun, 2014 [facility] [place] [facility] [address] [id number] [place] [address]- 1261 Jun, [facility] [place] [facility] [address] [id number] [place] [address]- 0988 Apr, [facility] [place] [facility] [address] [id number] [place] [address]- 7352 Apr, [facility] [place] [facility] [address] [id number] [place] [address]- 1792 Apr, [facility] [place] [facility] [address] [id number] [place] [address]- 8067 12 Feb, 2014 [facility] [place] [facility] [address] [id number] [place] [address]- 0843 12 Feb, 2014 [facility] [place] [facility] [address] [id number] [place] [address]- 3107 Feb, [facility] [place] [facility] [address] [id number] [place] [address]- 5073 Feb, [facility] [place] [facility] [address] [id number] [place] [address]- 5832 Aug, [facility] [place] [facility] [address] [id number] [place] [address]- 5505 Aug, [facility] [place] [facility] [address] [id number] [place] [address]- 0484 Mar, [facility] [place] [facility] [address] [id number] [place] [address]- 1954 Mar, [facility] [place] [facility] [address] [id number] [place] [address]- 0980 Mar, [facility] [place] [facility] [address] [id number] [place] [address]- 9517 Mar, [facility] [place] [facility] [address] [id number] [place] [address]- 4357 09 Feb, 2013 [facility] [address] [id number] [address]- 9206 Feb, [facility] [address] [facility] [id number] [place] [address]- 2853 Feb, [facility] [address] [facility] [id number] [place] [address]- 9543 Jan, [facility] [address] [facility] [id number] [place] [address]- 5478 Jan, [facility] [address] [id number] [place] [address]- 9753 Dec, [facility] [address] [facility] [id number] [place] [address]- 5019 Dec, [facility] [address] [facility] [id number] [place] [address]- 0954 Nov, [facility] [id number] [address]- 6425 Nov, [facility] [id number], [place] [address]- 8781 Jan, [facility] [address] [facility] [id number], [place] [address]- 0596 Jan, [facility] [id number], [place] [address]- 1660 Aug, [facility] [address] [facility] [id number], [place] [address]- 8526 Jun, [facility] [address] [facility] [id number], [place] [address]- 6323 Jun, [facility] [address] [facility] [id number] 8407 Apr, [facility] [address] [facility] [id number], [place] [address]- 9651 17 Feb, 2010 IMMUNIZATIONS No Known Immunizations SOCIAL HISTORY Never Assessed REASON FOR VISIT Controlled Med Refill PLAN OF CARE VITAL SIGNS MEDICATIONS Medication Instructions Dosage Frequency Start Date End Date Duration Status Hydrocodone-Acetaminophen 5-325 MG Orally every 6 hrs- Must last 30 days 1 tablet as needed Mar, 28 days Active RESULTS No Results PROCEDURES No Known procedures INSTRUCTIONS MEDICATIONS ADMINISTERED No Known Medications MEDICAL (GENERAL) HISTORY Type Description Date Medical History colitis Medical History right shoulder pain Surgical History Appendectomy Surgical History Abscess drained and removed Hospitalization History surgery Hospitalization History dehydration Hospitalization History chest pain, pancytopenia, slenomegaly-[facility] 10/25/17
--- OUTSIDE RECORDS SUMMARY | 2018-06-13 15:48 | XMS REPORT ---
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 Name Role Phone AMY HALEY Unavailable PROBLEMS Type Condition ICD9-CM Code OBZ37-MQ Code Onset Dates Condition Status SNOMED Code Problem Gastroesophageal reflux disease with esophagitis K21.0 Active 771166352 Problem GERD with esophagitis K21.0 Active 680303494 Problem Other ulcerative colitis without complication K51.80 Active 68794654 Problem Other chronic pain G89.29 Active 05769957 Problem Pancytopenia D61.818 Active 874405048 Problem Other chronic pain G89.29 Active 68628086 Problem Morbid (severe) obesity due to excess calories E66.01 Active 94021755128634 Problem Essential hypertension I10 Active 52543034 Problem Body mass index (BMI) of 40.0-44.9 in adult Z68.41 Active 504095566 Problem Body mass index (BMI) of 45.0-49.9 in adult Z68.42 Active 156261586 ALLERGIES No Information ENCOUNTERS Encounter Location Date Diagnosis [facility] [facility] [id number] [place] [address] 82741- 5150 31 Oct, 2017 [facility] [place] [facility] [id number] [place] [address] 29687- 4512 14 Oct, 2017 [facility] [id number] [place] [address] 42654 -8922 October, [facility] [place] [facility] [address] 80292- 9223 11 Oct, 2017 Pancytopenia D61.818 [facility] [place] [facility] [id number] [place] [address] 57730- 1027 10 Oct, 2017 [facility] [place] [facility] [address] 62026- 5678 October, [facility] [place] [facility] [id number] [place] [address] 19783- 3660 October, Pancytopenia D61.818 [facility] [id number] [place] [address] 81304- 5170 Sep, Other chronic pain G89.29 ; Pain in left knee M25.562 ; Pain in right knee M25.561 and Abdominal pain, left lower quadrant R10.32 [facility] [id number] [place] [address] 13964- 3278 Sep, Edema of left lower extremity R60.0 ; Essential hypertension I10 ; Morbid (severe) obesity due to excess calories E66.01 ; Body mass index (BMI) of 40.0-44.9 in adult Z68.41 and Hiatal hernia K44.9 [facility] [id number] [place] [address] 19251- 9841 Aug, [facility] [id number] [place] [address] 72886- 5954 Aug, [facility] [id number] [place] [address] 54023- 2325 Jul, Pain in right shoulder M25.511 [facility] [id number] [place] [address] 83656- 6948 Jul, [facility] [id number] [place] [address] 56577 -5775 Jul, Localized edema R60.0 and BMI 40.0-44.9, adult Z68.41 [facility] [id number] [place] [address] 33113- 1577 Jul, [facility] [place] [facility] [id number] [place] [address] 51541- 4329 Jun, Edema of left lower extremity R60.0 ; Essential hypertension I10 ; Family history of coronary artery disease Z82.49 ; Morbid ( severe) obesity due to excess calories E66.01 and Body mass index (BMI) of 45.0- 49.9 in adult Z68.42 [facility] [facility] [id number] [place] [address] 70493- 4949 16 Jun, 2017 Other chronic pain G89.29 [facility] [facility] [id number] [place] [address] 99560- 4037 15 Jun, 2017 Pain in right shoulder M25.511 [facility] [address] 63045- 0988 Jun, Other ulcerative colitis without complication K51.80 [facility] [id number] [place] [address] 78849 -2831 May, [facility] [id number] [place] [address] 00877- 3762 May, GERD with esophagitis K21.0 ; Other ulcerative colitis without complication K51.80 and Other chest pain R07.89 [facility] [id number] [place] [address] 93175- 7363 May, [facility] [address] 06216 -3055 May, Left leg swelling M79.89 [facility] [id number] [place] [address] 77628- 9525 14 Apr, 2017 Pain in right shoulder M25.511 [facility] [id number] [place] [address] 72627- 2204 Apr, Pain in right shoulder M25.511 [facility] [id number] [place] [address] 98935- 0652 Mar, [facility] [address] 87021- 3044 Mar, Pain in right shoulder M25.511 [facility] [place] [facility] [id number] [place] [address] 23418- 5066 Mar, [facility] [address] [address]- 3296 Mar, [facility] [place] [facility] [id number] [place] [address] 47661- 2146 Feb, Pain in right shoulder M25.511 [facility] [place] [facility] [address] [address]- 6596 Jan, Pain in right shoulder M25.511 [facility] [place] [facility] [id number] [place] [address] 62648- 1046 Jan, [facility] [place] [facility] [id number] [place] [address] 80169- 6147 Dec, Pain in right shoulder M25.511 [facility] [facility] [id number] [place] [address] 97125 2546 Nov, Pain in right shoulder M25.511 [facility] [place] [facility] [id number] [place] [address] 22654- 3766 Nov, Pain in right shoulder M25.511 [facility] [place] [facility] [id number] [place] [address] 28897- 0802 October, Pain in right shoulder M25.511 [facility] [place] [facility] [id number] [place] [address] 48385- 4547 Sep, Pain in right shoulder M25.511 [facility] [place] [facility] [id number] [address]- 8548 Aug, Pain in right shoulder M25.511 [facility] [place] [facility] [address] [address]- 5668 Jul, Pain in right shoulder M25.511 [facility] [place] [facility] [id number] [address]- 4786 10 Jul, 2016 Pain in left shoulder M25.512 [facility] [facility] [address] [address]- 8836 10 Jul, 2016 Other chronic pain G89.29 [facility] [facility] [address] [address]- 1010 Jul, Pain in right shoulder M25.511 ; Other chronic pain G89.29 ; Pain in left shoulder M25.512 and Gastroesophageal reflux disease with esophagitis K21.0 [facility] [facility] [id number] [place] [address] 38954- 2342 Jun, [facility] [facility] [id number] [place] [address] 71504- 2776 May, [facility] [facility] [id number] [place] [address] 27440- 9233 May, [facility] [facility] [id number] [place] [address] 42100- 0975 Apr, [facility] [facility] [id number] [place] [address] 14652- 2582 Mar, [facility] [facility] [id number] [place] [address] 12459- 3816 Feb, [facility] [facility] [id number] [place] [address] 50186- 1531 Feb, [facility] [facility] [id number] [place] [address] 31569- 4176 Feb, [facility] [facility] [id number] [place] [address] 14857- 1866 Feb, [facility] [facility] [id number] [place] [address] 90407 2549 Jan, [facility] [facility] [id number] [place] [address] 87672- 1345 Dec, Pain in left shoulder M25.512 [facility] [facility] [id number] [place] [address] 343508- 5428 Dec, Gastroesophageal reflux disease, esophagitis presence not specified K21.9 [facility] [facility] [id number] [place] [address] 28214- 3283 Nov, Pain in left shoulder M25.512 [facility] [facility] [address] [address]- 3628 October, Pain in left shoulder M25.512 [facility] [place] [facility] [id number] [place] [address] 04489- 7436 Sep, Shoulder pain, left M25.512 [facility] [facility] [id number] [place] [address] 42535- 6728 Aug, Pain in right shoulder M25.511 and Other chronic pain G89.29 [facility] [place] [facility] [id number] [place] [address] 76954- 1543 Aug, Shoulder pain, right M25.511 and GERD (gastroesophageal reflux disease) K21.9 [facility] [facility] [id number] [place] [address] 97777- 9442 Nov, [facility] [facility] [id number] [place] [address] 74558- 7850 Sep, [facility] [facility] [id number] [place] [address] 85476- 1982 Sep, [facility] [facility] [id number] [place] [address] 20228- 5004 Jul, [facility] [facility] [address] [address]- 2146 Jul, [facility] [facility] [id number] [place] [address] 09049- 1383 Jul, [facility] [facility] [id number] [place] [address] 54056- 4854 Jul, [facility] [facility] [id number] [place] [address] 10573- 1536 Jul, [facility] [facility] [id number] [place] [address] 877969- 1196 Jul, [facility] [id number] [address]- 0762 16 Jun, 2014 [facility] [place] [facility] [address] [id number] [place] [address]- 8662 Jun, [facility] [place] [facility] [address] [id number] [place] [address]- 9038 Apr, [facility] [place] [facility] [address] [id number] [place] [address]- 2076 Apr, [facility] [place] [facility] [address] [id number] [place] [address]- 5666 Apr, [facility] [place] [facility] [address] [id number] [place] [address]- 5460 12 Feb, 2014 [facility] [place] [facility] [address] [id number] [place] [address]- 7712 12 Feb, 2014 [facility] [place] [facility] [address] [id number] [place] [address]- 6028 Feb, [facility] [place] [facility] [address] [id number] [place] [address]- 5639 Feb, [facility] [place] [facility] [address] [id number] [place] [address]- 2092 Aug, [facility] [place] [facility] [address] [id number] [place] [address]- 7620 Aug, [facility] [place] [facility] [address] [id number] [place] [address]- 7119 Mar, [facility] [place] [facility] [address] [id number] [place] [address]- 3075 Mar, [facility] [place] [facility] [address] [id number] [place] [address]- 1740 Mar, [facility] [place] [facility] [address] [id number] [place] [address]- 5342 Mar, [facility] [place] [facility] [address] [id number] [place] [address]- 6886 09 Feb, 2013 [facility] [place] [facility] [address] [facility] [id number] [address]- 5293 06 Feb, 2013 [facility] [place] [facility] [address] [facility] [id number] [place] [address]- 3775 Feb, [facility] [place] [facility] [address] [facility] [id number] [place] [address]- 8910 Jan, [facility] [place] [facility] [address] [facility] [id number] [place] [address]- 6115 Jan, [facility] [place] [facility] [address] [id number] [place] [address]- 9306 Dec, [facility] [place] [facility] [address] [facility] [id number] [place] [address]- 2802 Dec, [facility] [place] [facility] [address] [facility] [id number] [place] [address]- 3054 Nov, [facility] [place] [facility] [address] [address]- 4298 Nov, [facility] [place] [facility] [id number] [address]- 6352 Jan, [facility] [place] [facility] [address] [address]- 5223 Jan, [facility] [place] [facility] [id number] [address]- 7661 Aug, [facility] [place] [facility] [address] [facility] [id number] [place] [address]- 1031 Jun, [facility] [place] [facility] [address] [facility] [id number] [place] [address]- 1134 Jun, [facility] [facility] [address] [facility] [id number] [place] 9153 Apr, [facility] [place] [facility] [address] [facility] [id number] [place] [address]- 1009 17 Feb, 2010 IMMUNIZATIONS No Known Immunizations [...]
--- OUTSIDE RECORDS SUMMARY | 2018-06-13 15:48 | XMS REPORT ---
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 Role Phone AMY HALEY Unavailable PROBLEMS Type Condition ICD9-CM Code [id number] Code Onset Dates Condition Status SNOMED Code Problem GERD with esophagitis K21.0 Active 701221011 Problem Morbid (severe) obesity due to excess calories E66.01 Active 10128294051478 Problem Essential hypertension I10 Active 33264172 Problem Other chronic pain G89.29 Active 04207152 Problem Gastroesophageal reflux disease with esophagitis K21.0 Active 484910568 Problem Other ulcerative colitis without complication K51.80 Active 33908516 Problem Pancytopenia D61.818 Active 512118852 Problem Temporary low platelet count D69.6 Active 042683048 Problem Body mass index (BMI) of 40.0-44.9 in adult Z68.41 Active 111432058 Problem Body mass index (BMI) of 45.0-49.9 in adult Z68.42 Active 097460918 Problem Neutropenia, unspecified type D70.9 Active 405763119 Problem Other chronic pain G89.29 Active 76429154 ALLERGIES No Information ENCOUNTERS Encounter Location Date Diagnosis [facility] [id number] [address] Jan, [facility] [id number] [place] [address] 03393- 1467 Nov, Other chronic pain G89.29 [facility] [id number] [place] [address] 99797- 0107 Nov, [facility] [address] [address] Nov, [facility] [id number] [place] [address] 98449- 9781 October, Other chronic pain G89.29 ; Pain in right knee M25.561 ; Pain in left knee M25.562 and Abdominal pain, left lower quadrant R10.32 [facility] [id number] [place] [address] 32486- 6133 October, [facility] [id number] [place] [address] 69943- 3672 October, Splenomegaly R16.1 ; Neutropenia, unspecified type D70.9 and Temporary low platelet count D69.6 [facility] [id number] [place] [address] 32825 -0523 October, [facility] [id number] [place] [address] 06813- 1009 October, Pancytopenia D61.818 [facility] [id number] [place] [address] 50828- 4955 October, [facility] [id number] [place] [address] 28957- 3208 October, [facility] [id number] [place] [address] 73564- 5859 October, Pancytopenia D61.818 [facility] [id number] [place] [address] 81185- 6962 Sep, Other chronic pain G89.29 ; Pain in left knee M25.562 ; Pain in right knee M25.561 and Abdominal pain, left lower quadrant R10.32 [facility] [address] [place] [address] 54097- 5766 Sep, Edema of left lower extremity R60.0 ; Essential hypertension I10 ; Morbid (severe) obesity due to excess calories E66.01 ; Body mass index (BMI) of 40.0-44.9 in adult Z68.41 and Hiatal hernia K44.9 [facility] [id number] [place] [address] 70118- 3147 Aug, [place] [id number] [place] [address] 95137- 9486 Aug, [place] [id number] [place] [address] 69193- 9430 Jul, Pain in right shoulder M25.511 [place] [id number] [place] [address] 74402- 4211 Jul, [facility] [place] [address] [address] Jul, Localized edema R60.0 and BMI 40.0-44.9, adult Z68.41 [place] [address] 75958- 3022 Jul, [place] [id number] [place] [address] 40641- 2661 Jun, Edema of left lower extremity R60.0 ; Essential hypertension I10 ; Family history of coronary artery disease Z82.49 ; Morbid ( severe) obesity due to excess calories E66.01 and Body mass index (BMI) of 45.0- 49.9 in adult Z68.42 [place] [id number] [place] [address] 23250- 9696 Jun, Other chronic pain G89.29 [place] [id number] [place] [address] 07649- 0426 Jun, Pain in right shoulder M25.511 [place] [id number] [place] [address] 16114- 1085 Jun, Other ulcerative colitis without complication K51.80 [facility] [id number] [place] [address] 68440 -5997 May, [place] [id number] [place] [address] 10899- 5141 May, GERD with esophagitis K21.0 ; Other ulcerative colitis without complication K51.80 and Other chest pain R07.89 [place] [address] [address] May, [facility] [id number] [place] [address] 00741 -7986 May, Left leg swelling M79.89 [facility] [address] [address] 7706 Apr, Pain in right shoulder M25.511 [facility] [id number] [place] [address] 29669- 0742 Apr, Pain in right shoulder M25.511 [facility] [id number] [place] [address] 77698- 0586 Mar, [facility] [id number] [place] [address] 67454- 9356 Mar, Pain in right shoulder M25.511 [facility] [id number] [place] [address] 62041- 0256 Mar, [facility] [id number] [place] [address] 17273- 9838 Mar, [facility] [id number] [place] [address] 50864- 0976 Feb, Pain in right shoulder M25.511 [facility] [id number] [address] 5826 Jan, Pain in right shoulder M25.511 [facility] [id number] [address] 2546 Jan, [facility] [address] [address] 2736 Dec, Pain in right shoulder M25.511 [facility] [address] [address] 2546 Nov, Pain in right shoulder M25.511 [facility] [id number] [place] [address] 27990- 5307 Nov, Pain in right shoulder M25.511 [facility] [address] [address]- 8661 October, Pain in right shoulder M25.511 [facility] [id number] [address]- 1106 Sep, Pain in right shoulder M25.511 [facility] [id number] [place] [address] 41591- 7049 Aug, Pain in right shoulder M25.511 [facility] [id number] [place] [address] 06436- 0747 Jul, Pain in right shoulder M25.511 [facility] [id number] [place] [address] 685592- 2104 Jul, Pain in left shoulder M25.512 [facility] [id number] [place] [address] 71507- 7012 Jul, Other chronic pain G89.29 [facility] [id number] [address]- 4286 Jul, Pain in right shoulder M25.511 ; Other chronic pain G89.29 ; Pain in left shoulder M25.512 and Gastroesophageal reflux disease with esophagitis K21.0 [facility] [address] [address]- 9072 Jun, [facility] [address] [address]- 6483 May, [facility] [address] [address] [address]25 May, [facility] [id number] [place] [address] 257489- 2556 15 Apr, 2016 [facility] [address] [address] Mar, [facility] [id number] [place] [address] 21000- 5748 22 Feb, 2016 [facility] [id number] [place] [address] 95961- 8243 13 Feb, 2016 [facility] [id number] [place] [address] 44744- 5559 12 Feb, 2016 [facility] [id number] [place] [address] 65004- 0638 06 Feb, 2016 [facility] [address] 9[address]84- 7510 Jan, [facility] [address] 50055- 8557 Dec, Pain in left shoulder M25.512 [facility] [id number] [place] [address] 19066- 5644 Dec, Gastroesophageal reflux disease, esophagitis presence not specified K21.9 [facility] [address] 66186- 0813 Nov, Pain in left shoulder M25.512 [facility] [address] 82768- 8335 October, Pain in left shoulder M25.512 [facility] [id number] [place] [address] 19928- 6071 Sep, Shoulder pain, left M25.512 [facility] [id number] [place] [address] 65329- 0296 Aug, Pain in right shoulder M25.511 and Other chronic pain G89.29 [facility] [id number] [place] [address] 61518- 8286 07 Aug, 2015 Shoulder pain, right M25.511 and GERD (gastroesophageal reflux disease) K21.9 [facility] [id number] [place] [address] 21052- 1915 08 Nov, 2014 [facility] [address] 75813- 4540 14 Sep, 2014 [facility] [place] [facility] [address] [id number] [place] [address]- 7226 13 Sep, 2014 [facility] [place] [facility] [address] [id number] [place] [address]- 3000 Jul, 2014 [facility] [place] [facility] [address] [id number] [place] [address]- 0029 Jul, 2014 [facility] [place] [facility] [address] [id number] [place] [address]- 5496 Jul, 2014 [facility] [place] [facility] [address] [id number] [place] [address]- 8785 Jul, 2014 [facility] [place] [facility] [address] [id number] [place] [address]- 7812 Jul, [facility] [place] [facility] [address] [id number] [place] [address]- 9595 Jul, [facility] [place] [facility] [address] [id number] [place] [address]- 5292 Jun, [facility] [place] [facility] [address] [id number] [place] [address]- 6947 Jun, [facility] [place] [facility] [address] [facility] [id number] [place] [address]- 9046 Apr, [facility] [place] [facility] [address] [id number] [place] [address]- 0797 Apr, [facility] [place] [facility] [address] [id number] [place] [address]- 5880 Apr, [facility] [place] [facility] [address] [id number] [place] [address]- 5708 Feb, [facility] [place] [facility] [address] [id number] [place] [address]- 1615 Feb, [facility] [place] [facility] [address] [id number] [place] [address]- 9436 Feb, [facility] [place] [facility] [address] [id number] [place] [address]- 4098 Feb, [facility] [place] [facility] [address] [id number] [place] [address]- 6746 Aug, [facility] [place] [facility] [address] [id number] [place] [address]- 9651 Aug, [facility] [place] [facility] [address] [id number] [place] [address]- 3712 Mar, [facility] [place] [facility] [address] [id number] [place] [address]- 0714 Mar, [facility] [place] [facility] [address] [id number] [place] [address]- 7856 Mar, [facility] [place] [facility] [address] [id number] [place] [address]- 5347 Mar, [facility] [place] [facility] [address] [id number] [place] [address]- 4028 Feb, [facility] [place] [facility] [address] [id number] [place] [address]- 0522 Feb, [facility] [place] [facility] [address] [id number] [place] [address]- 4018 Feb, [facility] [place] [facility] [address] [id number] [place] [address]- 5844 30 Jan, 2013 [facility] [place] [facility] [address] [id number] [place] [address]- 5316 Jan, [facility] [place] [facility] [address] [id number] [place] [address]- 0933 Dec, [facility] [place] [facility] [address] [id number] [place] [address]- 7683 15 Dec, 2012 [facility] [place] [facility] [address] [id number] [place] [address]- 0002 Nov, [facility] [place] [facility] [address] [id number] [place] [address]- 3566 14 Nov, 2012 [facility] [address] [facility] [id number] [place] [address]- 2546 Jan, [facility] [id number] [address]- 2546 Jan, [facility] [id number] [address]- 2546 Aug, [facility] [address] [address]- 2546 Jun, [facility] [id number] [address]- 2546 Jun, [facility] [address] [address]- 2546 Apr, [facility] [id number] [address]- 2546 Feb, IMMUNIZATIONS No Known Immunizations SOCIAL [...] History dehydration Hospitalization History chest pain, pancytopenia, slenomegaly-[facility] 10/25/17
--- OUTSIDE RECORDS SUMMARY | 2018-06-13 15:49 | XMS REPORT ---
Author Author AMY HALEY Organization [facility] Address [address] [place] [address] Care Team Providers Care Voice Engineer Name Role Phone AMY HALEY Unavailable PROBLEMS Type Condition ICD9-CM Code XYI51-FD Code Onset Dates Condition Status SNOMED Code Problem GERD with esophagitis K21.0 Active 284060560 Problem Morbid (severe) obesity due to excess calories E66.01 Active 34885183472873 Problem Essential hypertension I10 Active 70477155 Problem Other chronic pain G89.29 Active 53253505 Problem Gastroesophageal reflux disease with esophagitis K21.0 Active 633424821 Problem Other ulcerative colitis without complication K51.80 Active 90495302 Problem Pancytopenia D61.818 Active 705704986 Problem Temporary low platelet count D69.6 Active 800953212 Problem Body mass index (BMI) of 40.0-44.9 in adult Z68.41 Active 819741885 Problem Body mass index (BMI) of 45.0-49.9 in adult Z68.42 Active 689300035 Problem Neutropenia, unspecified type D70.9 Active 404270032 Problem Other chronic pain G89.29 Active 02647743 ALLERGIES No Information ENCOUNTERS Encounter Location Date Diagnosis [facility] [id number] [address] Jan, [facility] [id number] [place] [address] 19101- 1137 Nov, Other chronic pain G89.29 [facility] [id number] [place] [address] 49417- 2775 Nov, [facility] [id number] [address] Nov, [facility] [id number] [place] [address] 52576- 5160 October, Other chronic pain G89.29 ; Pain in right knee M25.561 ; Pain in left knee M25.562 and Abdominal pain, left lower quadrant R10.32 [facility] [id number] [place] [address] 98460- 3507 October, [facility] [id number] [place] [address] 59007- 9881 October, Splenomegaly R16.1 ; Neutropenia, unspecified type D70.9 and Temporary low platelet count D69.6 [facility] [id number] [place] [address] 56715 -9520 October, [facility] [id number] [place] [address] 03616- 0179 October, Pancytopenia D61.818 [facility] [id number] [place] [address] 87951- 8864 October, [facility] [id number] [place] [address] 02485- 9130 October, [facility] [id number] [place] [address] 24524- 0003 October, Pancytopenia D61.818 [facility] [id number] [place] [address] 48313- 1609 Sep, Other chronic pain G89.29 ; Pain in left knee M25.562 ; Pain in right knee M25.561 and Abdominal pain, left lower quadrant R10.32 [facility] [address] [place] [address] 32484- 5594 Sep, Edema of left lower extremity R60.0 ; Essential hypertension I10 ; Morbid (severe) obesity due to excess calories E66.01 ; Body mass index (BMI) of 40.0-44.9 in adult Z68.41 and Hiatal hernia K44.9 [facility] [id number] [place] [address] 75758- 0163 Aug, [place] [id number] [place] [address] 16045- 9957 Aug, [place] [id number] [place] [address] 41506- 5616 Jul, Pain in right shoulder M25.511 [place] [id number] [place] [address] 83627- 8745 Jul, [facility] [place] [address] [address] -[address]69 Jul, Localized edema R60.0 and BMI 40.0-44.9, adult Z68.41 [place] [address] 27811- 2244 Jul, [place] [id number] [place] [address] 04130- 8052 Jun, Edema of left lower extremity R60.0 ; Essential hypertension I10 ; Family history of coronary artery disease Z82.49 ; Morbid ( severe) obesity due to excess calories E66.01 and Body mass index (BMI) of 45.0- 49.9 in adult Z68.42 [place] [id number] [place] [address] 95401- 6948 Jun, Other chronic pain G89.29 [place] [id number] [place] [address] 37860- 5468 Jun, Pain in right shoulder M25.511 [place] [id number] [place] [address] 48908- 0988 Jun, Other ulcerative colitis without complication K51.80 [facility] [id number] [place] [address] 39636 -6704 May, [place] [id number] [place] [address] 46976- 9775 May, GERD with esophagitis K21.0 ; Other ulcerative colitis without complication K51.80 and Other chest pain R07.89 [place] [address] [address] May, [facility] [id number] [place] [address] 20967 -3156 May, Left leg swelling M79.89 [facility] [address] [address] 2696 Apr, Pain in right shoulder M25.511 [facility] [id number] [place] [address] 97773- 6153 Apr, Pain in right shoulder M25.511 [facility] [id number] [place] [address] 74477- 0836 Mar, [facility] [id number] [place] [address] 21448- 2086 Mar, Pain in right shoulder M25.511 [facility] [id number] [place] [address] 97069- 1716 Mar, [facility] [id number] [place] [address] 82201- 3071 Mar, [facility] [id number] [place] [address] 64375- 6766 Feb, Pain in right shoulder M25.511 [facility] [id number] [address] Jan, Pain in right shoulder M25.511 [facility] [id number] [address] 2546 Jan, [facility] [address] [address] 7186 Dec, Pain in right shoulder M25.511 [facility] [address] [address] 2546 Nov, Pain in right shoulder M25.511 [facility] [id number] [place] [address] 03328- 0554 Nov, Pain in right shoulder M25.511 [facility] [address] [address] 6761 October, Pain in right shoulder M25.511 [facility] [id number] [address] 0036 Sep, Pain in right shoulder M25.511 [facility] [id number] [place] [address] 86325- 1019 Aug, Pain in right shoulder M25.511 [facility] [address] [place] [address] 32637- 3374 Jul, Pain in right shoulder M25.511 [facility] [id number] [place] [address] 856950- 2488 Jul, Pain in left shoulder M25.512 [facility] [id number] [place] [address] 50858- 5913 Jul, Other chronic pain G89.29 [facility] [id number] [address] 7977 Jul, Pain in right shoulder M25.511 ; Other chronic pain G89.29 ; Pain in left shoulder M25.512 and Gastroesophageal reflux disease with esophagitis K21.0 [facility] [address] [address] Jun, [facility] [id number] [address]- 4818 May, [facility] [address] [address] May, [facility] [id number] [place] [address] 697427- 2246 15 Apr, 2016 [facility] [address] [address] Mar, [facility] [id number] [place] [address] 64839- 8573 22 Feb, 2016 [facility] [id number] [place] [address] 28438- 9665 13 Feb, 2016 [facility] [id number] [place] [address] 73379- 8733 12 Feb, 2016 [facility] [id number] [place] [address] 72096- 0418 06 Feb, 2016 [facility] [address] 18574- 5614 Jan, [facility] [address] 45539- 4343 Dec, Pain in left shoulder M25.512 [facility] [id number] [place] [address] 16690- 4743 Dec, Gastroesophageal reflux disease, esophagitis presence not specified K21.9 [facility] [address] 03640- 2340 Nov, Pain in left shoulder M25.512 [facility] [address] 91160- 3962 October, Pain in left shoulder M25.512 [facility] [id number] [place] [address] 35420- 1404 Sep, Shoulder pain, left M25.512 [facility] [id number] [place] [address] 42127- 0207 Aug, Pain in right shoulder M25.511 and Other chronic pain G89.29 [facility] [id number] [place] [address] 43533- 8811 07 Aug, 2015 Shoulder pain, right M25.511 and GERD (gastroesophageal reflux disease) K21.9 [facility] [id number] [place] [address] 61710- 4291 08 Nov, 2014 [facility] [address] [address]40- 2533 14 Sep, 2014 [facility] [place] [facility] [address] [id number] [place] [address]- 7178 13 Sep, 2014 [facility] [place] [facility] [address] [id number] [place] [address]- 6312 Jul, 2014 [facility] [place] [facility] [address] [id number] [place] [address]- 1246 Jul, 2014 [facility] [place] [facility] [address] [id number] [place] [address]- 3077 Jul, 2014 [facility] [place] [facility] [address] [id number] [place] [address]- 4603 Jul, 2014 [facility] [place] [facility] [address] [id number] [place] [address]- 6554 Jul, [facility] [place] [facility] [address] [id number] [place] [address]- 9167 Jul, [facility] [place] [facility] [address] [id number] [place] [address]- 2022 Jun, [facility] [place] [facility] [address] [id number] [place] [address]- 2546 Jun, [facility] [place] [facility] [address] [facility] [id number] [place] [address]- 4295 Apr, [facility] [place] [facility] [address] [id number] [place] [address]- 0469 Apr, [facility] [place] [facility] [address] [id number] [address]- 7685 Apr, [facility] [place] [facility] [address] [id number] [place] [address]- 7260 Feb, [facility] [place] [facility] [address] [id number] [place] [address]- 0440 Feb, [facility] [place] [facility] [address] [id number] [address]- 9596 Feb, [facility] [place] [facility] [address] [id number] [place] [address]- 6601 Feb, [facility] [place] [facility] [address] [id number] [place] [address]- 9324 Aug, [facility] [place] [facility] [address] [id number] [place] [address]- 0286 Aug, [facility] [place] [facility] [address] [id number] [place] [address]- 4540 Mar, [facility] [place] [facility] [address] [id number] [place] [address]- 9177 Mar, [facility] [place] [facility] [address] [id number] [place] [address]- 1163 Mar, [facility] [place] [facility] [address] [id number] [place] [address]- 1219 Mar, [facility] [place] [facility] [address] [id number] [place] [address]- 6154 Feb, [facility] [place] [facility] [address] [id number] [place] [address]- 9263 Feb, [facility] [place] [facility] [address] [id number] [place] [address]- 3240 Feb, [facility] [place] [facility] [address] [id number] [place] [address]- 6503 30 Jan, 2013 [facility] [place] [facility] [address] [id number] [place] [address]- 0366 Jan, [facility] [place] [facility] [address] [id number] [place] [address]- 2868 Dec, [facility] [place] [facility] [address] [id number] [place] [address]- 7240 15 Dec, 2012 [facility] [place] [facility] [address] [id number] [place] [address]- 0655 Nov, [facility] [place] [facility] [address] [id number] [address]- 8046 14 Nov, 2012 [facility] [address] [facility] [id number] [address]- 2546 15 Jan, 2012 [facility] [id number] [address]- 2546 Jan, [facility] [id number] [address]- 2546 Aug, [facility] [id number] [address]- 2546 Jun, [facility] [id number] [address]- 2546 Jun, [facility] [id number] [address] 2546 Apr, [facility] [id number] [address] 2546 17 Feb, 2010 IMMUNIZATIONS No Known Immunizations SOCIAL HISTORY Never Assessed REASON FOR VISIT Ameritox---DBennettYadira PLAN OF CARE VITAL SIGNS MEDICATIONS Unknown Medications RESULTS Name Result Date Reference Range AMERITOX 2017-07-06 PROCEDURES Procedure Date Ordered Result Body Site No Charge Jul 06, 2017 INSTRUCTIONS MEDICATIONS ADMINISTERED No Known Medications MEDICAL (GENERAL) HISTORY Type Description Date Medical History colitis Medical History right shoulder pain Surgical History Appendectomy Surgical History Abscess drained and removed Hospitalization History surgery Hospitalization History dehydration Hospitalization History chest pain, pancytopenia, slenomegaly-[facility] [place] 10/25/17
--- OUTSIDE RECORDS SUMMARY | 2018-06-13 15:49 | XMS REPORT ---
Author Author AMY AHLEY Organization [facility] Address [address] [place] [address] Care Team Providers Care Grounding Engineer Name Role Phone AMY HALEY Unavailable PROBLEMS Type Condition ICD9-CM Code FGU14-LK Code Onset Dates Condition Status SNOMED Code Problem GERD with esophagitis K21.0 Active 820056616 Problem Morbid (severe) obesity due to excess calories E66.01 Active 44232697967473 Problem Essential hypertension I10 Active 72154852 Problem Other chronic pain G89.29 Active 29674323 Problem Gastroesophageal reflux disease with esophagitis K21.0 Active 217037140 Problem Other ulcerative colitis without complication K51.80 Active 58430287 Problem Pancytopenia D61.818 Active 551470547 Problem Temporary low platelet count D69.6 Active 771249809 Problem Body mass index (BMI) of 40.0-44.9 in adult Z68.41 Active 726821779 Problem Body mass index (BMI) of 45.0-49.9 in adult Z68.42 Active 526580681 Problem Neutropenia, unspecified type D70.9 Active 005773839 Problem Other chronic pain G89.29 Active 42188745 ALLERGIES No Information ENCOUNTERS Encounter Location Date Diagnosis [place] [id number], [place] [address] Jan, [facility] [id number] [place] [address] 31775- 6824 Nov, [facility] [place] [id number] [place] [address] 94051- 4481 Nov, [place] [id number] [place] [address] 35204- 7475 October, Other chronic pain G89.29 ; Pain in right knee M25.561 ; Pain in left knee M25.562 and Abdominal pain, left lower quadrant R10.32 [facility] [place] [id number] [place] [address] 34017- 7644 October, [facility] [place] [id number] [place] [address] 30435- 4784 October, Splenomegaly R16.1 ; Neutropenia, unspecified type D70.9 and Temporary low platelet count D69.6 [facility] [id number] [place] [address] 57163 -0046 October, [facility] [place] [id number] [place] [address] 72553- 2850 October, Pancytopenia D61.818 [place] [id number] [place] [address] 90970- 5903 October, [place] [id number] [place] [address] 59309- 4756 October, [place] [id number] [place] [address] 27198- 4445 October, Pancytopenia D61.818 [place] [id number] [place] [address] 37451- 7152 Sep, Other chronic pain G89.29 ; Pain in left knee M25.562 ; Pain in right knee M25.561 and Abdominal pain, left lower quadrant R10.32 [place] [id number] [place] [address] 22041- 3728 Sep, Edema of left lower extremity R60.0 ; Essential hypertension I10 ; Morbid (severe) obesity due to excess calories E66.01 ; Body mass index (BMI) of 40.0-44.9 in adult Z68.41 and Hiatal hernia K44.9 [place] [id number] [place] [address] 29519- 7160 Aug, [place] [id number] [place] [address] 06457- 3524 Aug, [place] [id number] [place] [address] 83614- 2424 16 Jul, 2017 Pain in right shoulder M25.511 [place] [id number] [place] [address] 71652- 0537 05 Jul, 2017 [facility] [place] [id number] [place] [address] 46015 -0423 Jul, Localized edema R60.0 and BMI 40.0-44.9, adult Z68.41 [place] [address] 74883- 7896 Jul, [place] [address] 82409- 4714 Jun, Edema of left lower extremity R60.0 ; Essential hypertension I10 ; Family history of coronary artery disease Z82.49 ; Morbid ( severe) obesity due to excess calories E66.01 and Body mass index (BMI) of 45.0- 49.9 in adult Z68.42 [place] [id number] [place] [address] 32475- 8215 Jun, Other chronic pain G89.29 [place] [id number] [place] [address] 14464- 4127 Jun, Pain in right shoulder M25.511 [place] [id number] [place] [address] 79126- 9294 Jun, Other ulcerative colitis without complication K51.80 [facility] [place] [id number] [place] [address] 83111 -4792 May, [place] [id number] [place] [address] 33966- 8786 May, GERD with esophagitis K21.0 ; Other ulcerative colitis without complication K51.80 and Other chest pain R07.89 [place] [id number] [place] [address] 70448- 0580 May, [facility] [place] [address] [place] [address] May, Left leg swelling M79.89 [facility] [place] [id number] [place] [address] 48053- 9326 Apr, Pain in right shoulder M25.511 [facility] [place] [address] [place] [address] 12678 2546 Apr, Pain in right shoulder M25.511 [facility] [place] [id number] [place] [address] 81826 2546 Mar, [facility] [place] [id number] [place] [address] 59197 2546 Mar, Pain in right shoulder M25.511 [facility] [place] [id number] [place] [address] 87963 2546 Mar, [facility] [place] [id number] [place] [address] 61040- 1036 Mar, [facility] [place] [id number] [place] [address] 79866 2546 Feb, Pain in right shoulder M25.511 [facility] [place] [id number] [place] [address] 94610- 5516 Jan, Pain in right shoulder M25.511 [facility] [place] [address], [place] [address] 2546 Jan, [facility] [place] [id number] [place] [address] 99835 2546 Dec, Pain in right shoulder M25.511 [facility] [place] [id number] [place] [address] 32662 2546 Nov, Pain in right shoulder M25.511 [facility] [place] [id number] [place] [address] 81704 2546 Nov, Pain in right shoulder M25.511 [facility] [place] [id number] [place] [address] 86356- 2542 October, Pain in right shoulder M25.511 [facility] [place] [id number] [place] [address] 80640- 5258 Sep, Pain in right shoulder M25.511 [facility] [place] [id number] [place] [address] 46583- 2786 Aug, Pain in right shoulder M25.511 [facility] [place] [id number] [place] [address] 88811- 6696 10 Jul, 2016 Pain in right shoulder M25.511 [facility] [place] [id number] [place] [address] 127498- 1152 10 Jul, 2016 Pain in left shoulder M25.512 [facility] [place] [id number] [place] [address] 25619- 8975 10 Jul, 2016 Other chronic pain G89.29 [facility] [place] [id number] [place] [address] 42728- 0104 09 Jul, 2016 Pain in right shoulder M25.511 ; Other chronic pain G89.29 ; Pain in left shoulder M25.512 and Gastroesophageal reflux disease with esophagitis K21.0 [facility] [place] [id number] [place] [address] 04211- 2795 Jun, [facility] [place] [id number] [place] [address] 13799- 7544 May, [facility] [place] [id number] [place] [address] 66953- 6007 May, [facility] [place] [id number] [place] [address] 80286- 2288 15 Apr, 2016 [facility] [place] [id number] [place] [address] 54794- 3673 Mar, [facility] [place] [id number] [place] [address] 70794- 3246 22 Feb, 2016 [facility] [id number] [place] [address] 40221- 5357 13 Feb, 2016 [facility] [address] [place] [address] 47427- 1797 12 Feb, 2016 [facility] [place] [id number] [place] [address] 49147- 5486 06 Feb, 2016 [facility] [place] [id number] [place] [address] 61728- 4276 Jan, [facility] [place] [id number] [place] [address] 62813- 1191 Dec, Pain in left shoulder M25.512 [facility] [place] [id number] [place] [address] 92081- 9945 Dec, Gastroesophageal reflux disease, esophagitis presence not specified K21.9 [facility] [place] [id number] [place] [address] 24795- 8069 Nov, Pain in left shoulder M25.512 [facility] [place] [id number] [place] [address] 05887- 0252 October, Pain in left shoulder M25.512 [facility] [place] [id number] [place] [address] 77684- 7833 Sep, Shoulder pain, left M25.512 [facility] [place] [id number] [place] [address] 14287- 1694 Aug, Pain in right shoulder M25.511 and Other chronic pain G89.29 [facility] [place] [id number] [place] [address] 97085- 5143 Aug, Shoulder pain, right M25.511 and GERD (gastroesophageal reflux disease) K21.9 [facility] [id number] [place] [address] 94904- 4763 Nov, [facility] [place] [id number] [place] [address] 14942- 8308 Sep, [facility] [id number] [place] [address] 80318- 2960 Sep, [facility] [place] [facility] [address] [id number] [place] [address]- 3602 Jul, 2014 [facility] [place] [facility] [address] [id number] [place] [address]- 5236 Jul, 2014 [facility] [place] [facility] [address] [id number] [place] [address]- 7324 Jul, 2014 [facility] [place] [facility] [address] [id number] [place] [address]- 6131 Jul, 2014 [facility] [place] [facility] [address] [id number] [place] [address]- 3663 Jul, [facility] [place] [facility] [address] [id number] [place] [address]- 6512 Jul, [facility] [place] [facility] [address] [id number] [place] [address]- 3976 Jun, [facility] [place] [facility] [address] [id number] [place] [address]- 5015 Jun, [facility] [place] [facility] [address] [id number] [place] [address]- 0990 Apr, [facility] [place] [facility] [address] [id number] [place] [address]- 5928 Apr, [facility] [place] [facility] [address] [id number] [place] [address]- 2415 Apr, [facility] [place] [facility] [address] [id number] [place] [address]- 4782 12 Feb, 2014 [facility] [place] [facility] [address] [id number] [place] [address]- 5785 Feb, [facility] [place] [facility] [address] [id number] [place] [address]- 6032 Feb, [facility] [place] [facility] [address] [id number] [place] [address]- 0994 Feb, [facility] [place] [facility] [address] [id number] [place] [address]- 2432 Aug, [facility] [address] [id number] [place] [address]- 1340 Aug, [facility] [place] [facility] [address] [id number] [place] [address]- 5088 Mar, [facility] [address] [id number] [place] [address]- 9910 Mar, [facility] [place] [facility] [address] [id number] [place] [address]- 5448 Mar, [facility] [address] [id number] [place] [address]- 8905 Mar, [facility] [address] [id number] [place] [address]- 9408 Feb, [facility] [place] [facility] [address] [id number] [place] [address]- 9237 Feb, [facility] [address] [id number] [place] [address]- 6447 Feb, [facility] [address] [id number] [place] [address]- 0274 30 Jan, 2013 [facility] [address] [id number] [place] [address]- 6175 Jan, [facility] [place] [facility] [address] [id number] [place] [address]- 0792 Dec, [facility] [place] [facility] [address] [id number] [place] [address]- 3985 Dec, [facility] [place] [facility] [address] [id number] [place] [address]- 9851 Nov, [facility] [place] [facility] [address] [id number] [place] [address]- 2554 14 Nov, 2012 [facility] [place] [facility] [address] [id number] [place] [address]- 4252 Jan, [facility] [address] [facility] [id number] [address]- 5256 Jan, [facility] [id number], [place] [address]- 2546 Aug, [facility] [id number], [place] [address]- 9526 Jun, [facility] [address] [place] [address]- 2546 Jun, [facility] [id number], [place] [address]- 1126 Apr, [facility] [id number], [place] [address]- 2626 Feb, IMMUNIZATIONS No Known Immunizations SOCIAL HISTORY Never Assessed REASON FOR VISIT Refill PLAN OF CARE VITAL SIGNS MEDICATIONS Unknown Medications RESULTS No Results PROCEDURES No Known procedures INSTRUCTIONS MEDICATIONS ADMINISTERED No Known Medications MEDICAL (GENERAL) HISTORY Type Description Date Medical History colitis Medical History right shoulder pain Surgical History Appendectomy Surgical History Abscess drained and removed Hospitalization History surgery Hospitalization History dehydration Hospitalization History chest pain, pancytopenia, slenomegaly-[facility] 10/25/17
--- OUTSIDE RECORDS SUMMARY | 2018-06-13 15:49 | XMS REPORT ---
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 Role Phone AMY HALEY Unavailable PROBLEMS Type Condition ICD9-CM Code HWS38-WB Code Onset Dates Condition Status SNOMED Code Problem GERD with esophagitis K21.0 Active 260063653 Problem Morbid (severe) obesity due to excess calories E66.01 Active 80100224266095 Problem Essential hypertension I10 Active 54687957 Problem Other chronic pain G89.29 Active 92982658 Problem Gastroesophageal reflux disease with esophagitis K21.0 Active 634823799 Problem Other ulcerative colitis without complication K51.80 Active 01000559 Problem Pancytopenia D61.818 Active 027339236 Problem Temporary low platelet count D69.6 Active 215317014 Problem Body mass index (BMI) of 40.0-44.9 in adult Z68.41 Active 745518856 Problem Body mass index (BMI) of 45.0-49.9 in adult Z68.42 Active 493276877 Problem Neutropenia, unspecified type D70.9 Active 738301098 Problem Other chronic pain G89.29 Active 09053449 ALLERGIES No Information ENCOUNTERS Encounter Location Date Diagnosis [facility] [id number] [address] Jan, [facility] [id number] [place] [address] 30315- 8244 Nov, Other chronic pain G89.29 [facility] [id number] [place] [address] 24222- 7767 Nov, [facility] [address], [place] [address] Nov, [facility] [address] [place] [address] 52782- 6095 October, Other chronic pain G89.29 ; Pain in right knee M25.561 ; Pain in left knee M25.562 and Abdominal pain, left lower quadrant R10.32 [facility] [id number] [place] [address] 11983- 7040 October, [facility] [id number] [place] [address] 60429- 6339 October, Splenomegaly R16.1 ; Neutropenia, unspecified type D70.9 and Temporary low platelet count D69.6 [facility] [id number] [place] [address] 84707 -7740 October, [facility] [id number] [place] [address] 44558- 1556 October, Pancytopenia D61.818 [facility] [id number] [place] [address] 03241- 5174 October, [facility] [id number] [place] [address] 14163- 3710 October, [facility] [id number] [place] [address] 83240- 6454 October, Pancytopenia D61.818 [facility] [id number] [place] [address] 92409- 1654 Sep, Other chronic pain G89.29 ; Pain in left knee M25.562 ; Pain in right knee M25.561 and Abdominal pain, left lower quadrant R10.32 [facility] [address] [place] [address] 09818- 4903 Sep, Edema of left lower extremity R60.0 ; Essential hypertension I10 ; Morbid (severe) obesity due to excess calories E66.01 ; Body mass index (BMI) of 40.0-44.9 in adult Z68.41 and Hiatal hernia K44.9 [facility] [id number] [place] [address] 21348- 6431 Aug, [place] [id number] [place] [address] 38697- 6828 Aug, [place] [id number] [place] [address] 50592- 6099 Jul, Pain in right shoulder M25.511 [place] [id number] [place] [address] 15576- 9868 Jul, [facility] [address] [address] -6338 Jul, Localized edema R60.0 and BMI 40.0-44.9, adult Z68.41 [place] [address] 01189- 5511 Jul, [place] [id number] [place] [address] 07433- 2340 Jun, Edema of left lower extremity R60.0 ; Essential hypertension I10 ; Family history of coronary artery disease Z82.49 ; Morbid ( severe) obesity due to excess calories E66.01 and Body mass index (BMI) of 45.0- 49.9 in adult Z68.42 [place] [id number] [place] [address] 26190- 2639 Jun, Other chronic pain G89.29 [place] [id number] [place] [address] 28511- 9733 Jun, Pain in right shoulder M25.511 [place] [id number] [place] [address] 51076- 1675 Jun, Other ulcerative colitis without complication K51.80 [facility] [id number] [place] [address] 96104 -4621 May, [place] [id number] [place] [address] 40847- 0751 May, GERD with esophagitis K21.0 ; Other ulcerative colitis without complication K51.80 and Other chest pain R07.89 [place] [address], [place] [address] 477[address] May, [facility] [id number] [place] [address] 08864 -2696 May, Left leg swelling M79.89 [facility] [address], [place] [address] 5636 Apr, Pain in right shoulder M25.511 [facility] [id number] [place] [address] 91625- 4651 Apr, Pain in right shoulder M25.511 [facility] [id number] [place] [address] 75251- 5966 Mar, [facility] [id number] [place] [address] 27562- 9556 Mar, Pain in right shoulder M25.511 [facility] [id number] [place] [address] 76195- 0556 Mar, [facility] [id number] [place] [address] 86739- 4923 Mar, [facility] [id number] [place] [address] 26667- 8386 Feb, Pain in right shoulder M25.511 [facility] [id number], [place] [address] 4016 Jan, Pain in right shoulder M25.511 [facility] [id number], [place] [address] 2546 Jan, [facility] [address], [place] [address] Dec, Pain in right shoulder M25.511 [facility] [address], [place] [address] 2546 Nov, Pain in right shoulder M25.511 [facility] [id number] [place] [address] 00088- 6355 Nov, Pain in right shoulder M25.511 [facility] [address], [place] [address] 1918 October, Pain in right shoulder M25.511 [facility] [id number], [place] [address] 8116 Sep, Pain in right shoulder M25.511 [facility] [id number] [place] [address] 75944- 7909 Aug, Pain in right shoulder M25.511 [facility] [id number] [place] [address] 16931- 2391 Jul, Pain in right shoulder M25.511 [facility] [id number] [place] [address] 967487- 4189 Jul, Pain in left shoulder M25.512 [facility] [id number] [place] [address] 23730- 8960 Jul, Other chronic pain G89.29 [facility] [id number], [place] [address]- 4579 Jul, Pain in right shoulder M25.511 ; Other chronic pain G89.29 ; Pain in left shoulder M25.512 and Gastroesophageal reflux disease with esophagitis K21.0 [facility] [address], [place] [address]- 7738 Jun, [facility] [address], [place] [address] 3466 May, [facility] [address] May, [facility] [id number] [place] [address] 749079- 7216 15 Apr, 2016 [facility] [address] [address] Mar, [facility] [id number] [place] [address] 06559- 1783 22 Feb, 2016 [facility] [id number] [place] [address] 32443- 5672 13 Feb, 2016 [facility] [id number] [place] [address] 67699- 0600 12 Feb, 2016 [facility] [id number] [place] [address] 04128- 0596 06 Feb, 2016 [facility] [address] 36828- 4271 Jan, [facility] [address] 47941- 5163 Dec, Pain in left shoulder M25.512 [facility] [id number] [place] [address] 10175- 8157 Dec, Gastroesophageal reflux disease, esophagitis presence not specified K21.9 [facility] [address] 81636- 3742 Nov, Pain in left shoulder M25.512 [facility] [address] 03825- 3779 October, Pain in left shoulder M25.512 [facility] [id number] [place] [address] 28808- 7423 Sep, Shoulder pain, left M25.512 [facility] [id number] [place] [address] 71298- 6670 Aug, Pain in right shoulder M25.511 and Other chronic pain G89.29 [facility] [id number] [place] [address] 57682- 5998 07 Aug, 2015 Shoulder pain, right M25.511 and GERD (gastroesophageal reflux disease) K21.9 [facility] [id number] [place] [address] 05088- 1697 08 Nov, 2014 [facility] [address] 52692- 8167 14 Sep, 2014 [facility] [place] [facility] [address] [id number] [place] [address]- 8116 13 Sep, 2014 [facility] [place] [facility] [address] [id number] [place] [address]- 0402 Jul, 2014 [facility] [place] [facility] [address] [id number] [place] [address]- 7126 Jul, 2014 [facility] [place] [facility] [address] [id number] [place] [address]- 2605 Jul, 2014 [facility] [place] [facility] [address] [id number] [place] [address]- 5853 Jul, 2014 [facility] [place] [facility] [address] [id number] [place] [address]- 6407 Jul, [facility] [place] [facility] [address] [id number] [place] [address]- 1071 Jul, [facility] [place] [facility] [address] [id number] [place] [address]- 9600 Jun, [facility] [place] [facility] [address] [id number] [place] [address]- 2747 Jun, [facility] [place] [facility] [address] [facility] [id number] [place] [address]- 9939 Apr, [facility] [place] [facility] [address] [id number] [place] [address]- 9118 Apr, [facility] [place] [facility] [address] [id number] [address]- 8935 Apr, [facility] [place] [facility] [address] [id number] [place] [address]- 8139 Feb, [facility] [place] [facility] [address] [id number] [place] [address]- 3126 Feb, [facility] [place] [facility] [address] [id number], [place] [address]- 4625 Feb, [facility] [place] [facility] [address] [id number] [place] [address]- 4999 Feb, [facility] [place] [facility] [address] [id number] [place] [address]- 3079 Aug, [facility] [place] [facility] [address] [id number] [place] [address]- 0719 Aug, [facility] [place] [facility] [address] [id number] [place] [address]- 1294 Mar, [facility] [place] [facility] [address] [id number] [place] [address]- 2412 Mar, [facility] [place] [facility] [address] [id number] [place] [address]- 5979 Mar, [facility] [place] [facility] [address] [id number] [place] [address]- 0597 Mar, [facility] [place] [facility] [address] [id number] [place] [address]- 4223 Feb, [facility] [place] [facility] [address] [id number] [place] [address]- 0894 Feb, [facility] [place] [facility] [address] [id number] [place] [address]- 5676 Feb, [facility] [place] [facility] [address] [id number] [place] [address]- 7297 30 Jan, 2013 [facility] [place] [facility] [address] [id number] [place] [address]- 4913 Jan, [facility] [place] [facility] [address] [id number] [place] [address]- 4523 Dec, [facility] [place] [facility] [address] [id number] [place] [address]- 3927 15 Dec, 2012 [facility] [place] [facility] [address] [id number] [place] [address]- 9484 Nov, [facility] [place] [facility] [address] [id number], [place] [address]- 7326 14 Nov, 2012 [facility] [address] [facility] [id number] [address]- 7706 Jan, [facility] [id number], [place] [address]- 2546 Jan, [facility] [id number], [place] [address]- 2546 Aug, [facility] [address], [place] [address]- 2546 Jun, [facility] [id number], [place] [address] 2546 Jun, [facility] [address], [place] [address]- 4656 Apr, [facility] [id number], [place] [address]- 6876 17 Feb, 2010 IMMUNIZATIONS No Known Immunizations SOCIAL HISTORY Never Assessed REASON FOR VISIT Controlled Med Refill/ PLAN OF CARE VITAL SIGNS MEDICATIONS Medication Instructions Dosage Frequency Start Date End Date Duration Status Hydrocodone-Acetaminophen 5-325 MG Orally every 6 hrs- Must last 30 days 1 tablet as needed Jun, 28 days Active RESULTS No Results PROCEDURES No Known procedures INSTRUCTIONS MEDICATIONS ADMINISTERED No Known Medications MEDICAL (GENERAL) HISTORY Type Description Date Medical History colitis Medical History right shoulder pain Surgical History Appendectomy Surgical History Abscess drained and removed Hospitalization History surgery Hospitalization History dehydration Hospitalization History chest pain, pancytopenia, slenomegaly-[facility] 10/25/17
--- OUTSIDE RECORDS SUMMARY | 2018-06-13 15:50 | XMS REPORT ---
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 Role Phone AMY HALEY Unavailable PROBLEMS Type Condition ICD9-CM Code LUV40-BX Code Onset Dates Condition Status SNOMED Code Problem GERD with esophagitis K21.0 Active 739716145 Problem Morbid (severe) obesity due to excess calories E66.01 Active 57460154498385 Problem Essential hypertension I10 Active 09317276 Problem Other chronic pain G89.29 Active 92155676 Problem Gastroesophageal reflux disease with esophagitis K21.0 Active 028203161 Problem Other ulcerative colitis without complication K51.80 Active 02974976 Problem Pancytopenia D61.818 Active 455017168 Problem Temporary low platelet count D69.6 Active 371994371 Problem Body mass index (BMI) of 40.0-44.9 in adult Z68.41 Active 447495250 Problem Body mass index (BMI) of 45.0-49.9 in adult Z68.42 Active 482637324 Problem Neutropenia, unspecified type D70.9 Active 802958872 Problem Other chronic pain G89.29 Active 33670187 ALLERGIES No Information ENCOUNTERS Encounter Location Date Diagnosis [facility] [id number] [place] [address] 41589- 4294 October, [facility] [id number] [place] [address] 50025- 5784 October, [facility] [id number] [place] [address] 67523- 9957 October, Splenomegaly R16.1 ; Neutropenia, unspecified type D70.9 and Temporary low platelet count D69.6 [facility] [address] [address] October, [facility] [id number] [place] [address] 73790- 0450 October, Pancytopenia D61.818 [place] [address] 51694- 0807 October, [place] [id number] [place] [address] 39127- 5371 October, [place] [address] 98783- 5217 October, Pancytopenia D61.818 [place] [address] 34459- 6226 Sep, Other chronic pain G89.29 ; Pain in left knee M25.562 ; Pain in right knee M25.561 and Abdominal pain, left lower quadrant R10.32 [place] [address] 03582- 4884 Sep, Edema of left lower extremity R60.0 ; Essential hypertension I10 ; Morbid (severe) obesity due to excess calories E66.01 ; Body mass index (BMI) of 40.0-44.9 in adult Z68.41 and Hiatal hernia K44.9 [place] [id number] [place] [address] 00557- 6015 Aug, [place] [id number] [place] [address] 37201- 7345 Aug, [place] [id number] [place] [address] 37680- 4394 Jul, Pain in right shoulder M25.511 [place] [id number] [place] [address] 89835- 4474 Jul, [facility] [id number] [place] [address] 22104 -7423 Jul, Localized edema R60.0 and BMI 40.0-44.9, adult Z68.41 [place] [address] 19543- 5802 02 Jul, 2017 [place] [address] 29526- 8997 Jun, Edema of left lower extremity R60.0 ; Essential hypertension I10 ; Family history of coronary artery disease Z82.49 ; Morbid ( severe) obesity due to excess calories E66.01 and Body mass index (BMI) of 45.0- 49.9 in adult Z68.42 [place] [address] 02375- 0235 16 Jun, 2017 Other chronic pain G89.29 [place] [address] 27498- 0118 Jun, Pain in right shoulder M25.511 [place] [address] 89103- 5013 Jun, Other ulcerative colitis without complication K51.80 [facility] [address] 36825 -9598 May, [place] [address] 43688- 9004 May, GERD with esophagitis K21.0 ; Other ulcerative colitis without complication K51.80 and Other chest pain R07.89 [place] [address] 07788- 4283 May, [facility] [address] 46971 -9596 May, Left leg swelling M79.89 [place] [address] 61072- 9824 Apr, Pain in right shoulder M25.511 [place] [address] 07423- 3494 Apr, Pain in right shoulder M25.511 [place] [address] 61991- 6617 Mar, [facility] [address] [address] Mar, Pain in right shoulder M25.511 [facility] [address] [address] 139[address] Mar, [facility] [id number] [address] Mar, [facility] [id number] [place] [address] 92982- 9296 Feb, Pain in right shoulder M25.511 [facility] [id number] [place] [address] 77855- 7306 Jan, Pain in right shoulder M25.511 [facility] [id number] [place] [address] 94132- 8946 Jan, [facility] [id number] [place] [address] 09225- 7946 Dec, Pain in right shoulder M25.511 [facility] [id number] [place] [address] 06534- 2416 Nov, Pain in right shoulder M25.511 [facility] [address] [place] [address] 22733- 4906 Nov, Pain in right shoulder M25.511 [facility] [address] [place] [address] 54766- 2046 October, Pain in right shoulder M25.511 [facility] [address] [address] 65[address] Sep, Pain in right shoulder M25.511 [facility] [address] [place] [address] 30972- 2726 Aug, Pain in right shoulder M25.511 [facility] [address] [address] 8446 Jul, Pain in right shoulder M25.511 [facility] [address] [facility] [id number] [address] 10 Jul, 2016 Pain in left shoulder M25.512 [facility] [address] [facility] [id number] [place] [address] 21401 2546 10 Jul, 2016 Other chronic pain G89.29 [facility] [address] [facility] [id number] [place] [address] 98332 2546 09 Jul, 2016 Pain in right shoulder M25.511 ; Other chronic pain G89.29 ; Pain in left shoulder M25.512 and Gastroesophageal reflux disease with esophagitis K21.0 [facility] [address] [facility] [id number] [place] [address] 76937- 1236 Jun, [facility] [address] [place] [address] 02334- 6350 May, [facility] [address] [place] [address] 50771 2548 May, [facility] [address] [place] [address] 87253- 9710 Apr, [facility] [id number] [place] [address] 47113- 6196 Mar, [facility] [address] [address] 5046 Feb, [facility] [address] [place] [address] 45931 2546 13 Feb, 2016 [facility] [id number] [address] 2546 12 Feb, 2016 [facility] [id number] [place] [address] 99416 2546 06 Feb, 2016 [facility] [id number] [address] 2546 Jan, [facility] [address] [place] [address] 423338- 1861 Dec, Pain in left shoulder M25.512 [facility] [id number] [place] [address] 07399- 3222 Dec, Gastroesophageal reflux disease, esophagitis presence not specified K21.9 [facility] [id number] [place] [address] 77059- 7561 Nov, Pain in left shoulder M25.512 [facility] [id number] [place] [address] 75666- 3479 October, Pain in left shoulder M25.512 [facility] [id number] [place] [address] 94433- 9144 Sep, Shoulder pain, left M25.512 [facility] [id number] [place] [address] 47084- 3633 Aug, Pain in right shoulder M25.511 and Other chronic pain G89.29 [facility] [id number] [place] [address] 12066- 9342 Aug, Shoulder pain, right M25.511 and GERD (gastroesophageal reflux disease) K21.9 [facility] [id number] [place] [address] 52078- 6767 Nov, [facility] [address] [place] [address] 32716- 8443 Sep, [facility] [id number] [place] [address] 39786- 2137 Sep, [facility] [id number] [place] [address] 32726- 6140 Jul, [facility] [id number] [place] [address] 30608- 2395 Jul, [facility] [id number] [place] [address] 17376- 1301 Jul, [facility] [id number] [place] [address] 21701- 1073 Jul, [facility] [place] [facility] [address] [id number] [place] [address]- 6916 Jul, [facility] [place] [facility] [address] [id number] [place] [address]- 1620 Jul, [facility] [place] [facility] [address] [id number] [place] [address]- 1483 Jun, [facility] [place] [facility] [address] [id number] [place] [address]- 8931 Jun, [facility] [place] [facility] [address] [id number] [place] [address]- 5751 Apr, [facility] [place] [facility] [address] [id number] [place] [address]- 6064 Apr, [facility] [place] [facility] [address] [id number] [place] [address]- 2887 Apr, [facility] [place] [facility] [address] [id number] [place] [address]- 3300 Feb, [facility] [place] [facility] [address] [id number] [place] [address]- 3888 Feb, [facility] [place] [facility] [address] [id number] [place] [address]- 4870 Feb, [facility] [place] [facility] [address] [id number] [address]- 3321 Feb, [facility] [place] [facility] [address] [id number] [address]- 4683 Aug, [facility] [place] [facility] [address] [id number] [place] [address]- 2479 Aug, [facility] [place] [facility] [address] [id number] [address]- 8781 Mar, [facility] [place] [facility] [address] [id number] [place] [address]- 8920 Mar, [facility] [place] [facility] [address] [id number] [place] [address]- 9285 16 Mar, 2013 [facility] [address] [id number] [place] [address]- 8083 16 Mar, 2013 [facility] [place] [facility] [address] [id number] [place] [address]- 0687 09 Feb, 2013 [facility] [address] [id number] [place] [address]- 0156 06 Feb, 2013 [facility] [place] [facility] [address] [id number] [place] [address]- 4588 03 Feb, 2013 [facility] [address] [id number] [place] [address]- 4011 30 Jan, 2013 [facility] [place] [facility] [address] [id number] [place] [address]- 2767 Jan, [facility] [address] [id number] [place] [address]- 7474 Dec, [facility] [address] [id number] [place] [address]- 9201 Dec, [facility] [address] [id number] [place] [address]- 8109 Nov, [facility] [address] [id number] [place] [address]- 2298 Nov, [facility] [address] [id number] [place] [address]- 4250 Jan, [facility] [place] [facility] [address] [id number] [place] [address]- 9841 Jan, [facility] [place] [facility] [address] [id number] [place] [address]- 5905 Aug, [facility] [place] [facility] [address] [id number] [place] [address]- 4693 Jun, [facility] [place] [facility] [address] [id number] [place] [address]- 3662 Jun, [facility] [address] [facility] [id number] [place] [address]98 Apr, [facility] [address] [facility] [id number] [address]- 3494 17 Feb, 2010 IMMUNIZATIONS No Known Immunizations SOCIAL HISTORY Never Assessed REASON FOR VISIT Refill request PLAN OF CARE VITAL SIGNS MEDICATIONS Unknown Medications RESULTS No Results PROCEDURES No Known procedures INSTRUCTIONS MEDICATIONS ADMINISTERED No Known Medications MEDICAL (GENERAL) HISTORY Type Description Date Medical History colitis Medical History right shoulder pain Surgical History Appendectomy Surgical History Abscess drained and removed Hospitalization History surgery Hospitalization History dehydration Hospitalization History chest pain, pancytopenia, slenomegaly-[facility] 10/25/17
--- OUTSIDE RECORDS SUMMARY | 2018-06-13 15:50 | XMS REPORT ---
Author Author AMY HALEY Organization [facility] Address [address] [place] [address] Care Team Providers Care Consultant Nurse Name Role Phone AMY HALEY Unavailable PROBLEMS Type Condition ICD9-CM Code TGK07-TG Code Onset Dates Condition Status SNOMED Code Problem GERD with esophagitis K21.0 Active 542559945 Problem Morbid (severe) obesity due to excess calories E66.01 Active 96642144282496 Problem Essential hypertension I10 Active 89963900 Problem Other chronic pain G89.29 Active 81155515 Problem Gastroesophageal reflux disease with esophagitis K21.0 Active 830689463 Problem Other ulcerative colitis without complication K51.80 Active 59576794 Problem Pancytopenia D61.818 Active 616649773 Problem Temporary low platelet count D69.6 Active 825887846 Problem Body mass index (BMI) of 40.0-44.9 in adult Z68.41 Active 142899241 Problem Body mass index (BMI) of 45.0-49.9 in adult Z68.42 Active 778710640 Problem Neutropenia, unspecified type D70.9 Active 258108247 Problem Other chronic pain G89.29 Active 59726794 ALLERGIES No Information ENCOUNTERS Encounter Location Date Diagnosis [facility] [id number] [address] Jan, [facility] [address] [place] [address]5380- 2908 Nov, Other chronic pain G89.29 [facility] [address] [place] [address] 45473- 9861 Nov, [facility] [address], [place] [address] Nov, [facility] [address] [place] [address] 27454- 3159 October, Other chronic pain G89.29 ; Pain in right knee M25.561 ; Pain in left knee M25.562 and Abdominal pain, left lower quadrant R10.32 [facility] [id number] [place] [address] 49825- 4948 October, [facility] [id number] [place] [address] 93286- 1668 October, Splenomegaly R16.1 ; Neutropenia, unspecified type D70.9 and Temporary low platelet count D69.6 [facility] [id number] [place] [address] 92035 -5502 October, [facility] [id number] [place] [address] 77674- 2587 October, Pancytopenia D61.818 [facility] [id number] [place] [address] 87735- 4337 October, [facility] [id number] [place] [address] 76734- 3340 October, [facility] [id number] [place] [address] 24660- 4675 October, Pancytopenia D61.818 [facility] [id number] [place] [address] 66129- 5343 Sep, Other chronic pain G89.29 ; Pain in left knee M25.562 ; Pain in right knee M25.561 and Abdominal pain, left lower quadrant R10.32 [facility] [address] [place] [address] 72105- 2208 Sep, Edema of left lower extremity R60.0 ; Essential hypertension I10 ; Morbid (severe) obesity due to excess calories E66.01 ; Body mass index (BMI) of 40.0-44.9 in adult Z68.41 and Hiatal hernia K44.9 [facility] [id number] [place] [address] 22278- 6972 Aug, [place] [id number] [place] [address] 83324- 0027 Aug, [place] [id number] [place] [address] 81560- 8408 Jul, Pain in right shoulder M25.511 [place] [id number] [place] [address] 43546- 5985 Jul, [facility] [place] [address] [address] Jul, Localized edema R60.0 and BMI 40.0-44.9, adult Z68.41 [place] [address] 82515- 7424 Jul, [place] [id number] [place] [address] 55628- 7877 Jun, Edema of left lower extremity R60.0 ; Essential hypertension I10 ; Family history of coronary artery disease Z82.49 ; Morbid ( severe) obesity due to excess calories E66.01 and Body mass index (BMI) of 45.0- 49.9 in adult Z68.42 [place] [id number] [place] [address] 56028- 0207 Jun, Other chronic pain G89.29 [place] [id number] [place] [address] 84273- 6745 Jun, Pain in right shoulder M25.511 [place] [id number] [place] [address] 65514- 3485 Jun, Other ulcerative colitis without complication K51.80 [facility] [id number] [place] [address] 63592 -0195 May, [place] [id number] [place] [address] 85972- 3024 May, GERD with esophagitis K21.0 ; Other ulcerative colitis without complication K51.80 and Other chest pain R07.89 [place] [address], [place] [address] 34[address] May, [facility] [id number] [place] [address] 02330 -2526 May, Left leg swelling M79.89 [facility] [address], [place] [address] 1316 Apr, Pain in right shoulder M25.511 [facility] [id number] [place] [address] 07604- 4718 Apr, Pain in right shoulder M25.511 [facility] [id number] [place] [address] 48557- 9536 Mar, [facility] [id number] [place] [address] 48845- 2146 Mar, Pain in right shoulder M25.511 [facility] [id number] [place] [address] 13906- 1686 Mar, [facility] [id number] [place] [address] 92560- 2871 Mar, [facility] [id number] [place] [address] 72567- 9286 Feb, Pain in right shoulder M25.511 [facility] [id number], [place] [address] Jan, Pain in right shoulder M25.511 [facility] [id number], [place] [address] 2546 Jan, [facility] [address], [place] [address]- 3886 Dec, Pain in right shoulder M25.511 [facility] [address], [place] [address] 2546 Nov, Pain in right shoulder M25.511 [facility] [id number] [place] [address] 05446- 0657 Nov, Pain in right shoulder M25.511 [facility] [address], [place] [address] 4217 October, Pain in right shoulder M25.511 [facility] [id number] [address]- 9156 Sep, Pain in right shoulder M25.511 [facility] [id number] [place] [address] 13789- 8835 Aug, Pain in right shoulder M25.511 [facility] [address] [place] [address] 81670- 1302 Jul, Pain in right shoulder M25.511 [facility] [id number] [place] [address] 422487- 6322 Jul, Pain in left shoulder M25.512 [facility] [id number] [place] [address] 04901- 1829 Jul, Other chronic pain G89.29 [facility] [id number], [place] [address]- 1508 Jul, Pain in right shoulder M25.511 ; Other chronic pain G89.29 ; Pain in left shoulder M25.512 and Gastroesophageal reflux disease with esophagitis K21.0 [facility] [address] [address]- 0131 Jun, [facility] [address], [place] [address]- 9451 May, [facility] [address] 8577 May, [facility] [id number] [place] [address] 914767- 8066 15 Apr, 2016 [facility] [address] [address] Mar, [facility] [id number] [place] [address] 63685- 0216 22 Feb, 2016 [facility] [id number] [place] [address] 91099- 2369 13 Feb, 2016 [facility] [id number] [place] [address] 27669- 9868 12 Feb, 2016 [facility] [id number] [place] [address] 23550- 1014 06 Feb, 2016 [facility] [address] 83830- 9358 Jan, [facility] [address] 23275- 6901 Dec, Pain in left shoulder M25.512 [facility] [id number] [place] [address] 51809- 3153 Dec, Gastroesophageal reflux disease, esophagitis presence not specified K21.9 [facility] [address] 93807- 2911 Nov, Pain in left shoulder M25.512 [facility] [address] 78385- 6531 October, Pain in left shoulder M25.512 [facility] [id number] [place] [address] 46509- 4469 Sep, Shoulder pain, left M25.512 [facility] [id number] [place] [address] 52394- 7389 Aug, Pain in right shoulder M25.511 and Other chronic pain G89.29 [facility] [id number] [place] [address] 19082- 9277 07 Aug, 2015 Shoulder pain, right M25.511 and GERD (gastroesophageal reflux disease) K21.9 [facility] [id number] [place] [address] 82999- 6467 08 Nov, 2014 [facility] [address] 96653- 0148 14 Sep, 2014 [facility] [place] [facility] [address] [id number] [place] [address]- 8847 13 Sep, 2014 [facility] [place] [facility] [address] [id number] [place] [address]- 6957 Jul, 2014 [facility] [place] [facility] [address] [id number] [place] [address]- 6600 Jul, 2014 [facility] [place] [facility] [address] [id number] [place] [address]- 3094 Jul, 2014 [facility] [place] [facility] [address] [id number] [place] [address]- 4857 Jul, 2014 [facility] [place] [facility] [address] [id number] [place] [address]- 6785 Jul, [facility] [place] [facility] [address] [id number] [place] [address]- 2515 Jul, [facility] [place] [facility] [address] [id number] [place] [address]- 7112 Jun, [facility] [place] [facility] [address] [id number] [place] [address]- 9876 Jun, [facility] [place] [facility] [address] [facility] [id number] [place] [address]- 4608 Apr, [facility] [place] [facility] [address] [id number] [place] [address]- 7844 Apr, [facility] [place] [facility] [address] [id number] [address]- 5853 Apr, [facility] [place] [facility] [address] [id number] [place] [address]- 2985 Feb, [facility] [place] [facility] [address] [id number] [place] [address]- 7665 Feb, [facility] [place] [facility] [address] [id number] [address]- 8122 Feb, [facility] [place] [facility] [address] [id number] [place] [address]- 7354 Feb, [facility] [place] [facility] [address] [id number] [place] [address]- 4447 Aug, [facility] [place] [facility] [address] [id number] [place] [address]- 0706 Aug, [facility] [place] [facility] [address] [id number] [place] [address]- 9319 Mar, [facility] [place] [facility] [address] [id number] [place] [address]- 5859 Mar, [facility] [place] [facility] [address] [id number] [place] [address]- 6893 Mar, [facility] [place] [facility] [address] [id number] [place] [address]- 9586 Mar, [facility] [place] [facility] [address] [id number] [place] [address]- 4899 Feb, [facility] [place] [facility] [address] [id number] [place] [address]- 7511 Feb, [facility] [place] [facility] [address] [id number] [place] [address]- 3397 Feb, [facility] [place] [facility] [address] [id number] [place] [address]- 9977 30 Jan, 2013 [facility] [place] [facility] [address] [id number] [place] [address]- 5251 Jan, [facility] [place] [facility] [address] [id number] [place] [address]- 2635 Dec, [facility] [place] [facility] [address] [id number] [place] [address]- 7093 15 Dec, 2012 [facility] [place] [facility] [address] [id number] [place] [address]- 1655 Nov, [facility] [place] [facility] [address] [id number] [address]- 3466 14 Nov, 2012 [facility] [id number], [place] [address] 2546 Jan, [facility] [address], [place] [address]- 2546 Jan, [facility] [address], [place] [address]- 2546 Aug, [facility] [address], [place] [address]- 2546 Jun, [facility] [address], [place] [address] 2546 Jun, [facility] [address], [place] [address]- 1146 Apr, [facility] [id number], [place] [address]- 6666 17 Feb, 2010 IMMUNIZATIONS No Known Immunizations SOCIAL HISTORY Never Assessed REASON FOR VISIT Violation of Controlled Substance Agreement PLAN OF CARE VITAL SIGNS MEDICATIONS Unknown Medications RESULTS No Results PROCEDURES No Known procedures INSTRUCTIONS MEDICATIONS ADMINISTERED No Known Medications MEDICAL (GENERAL) HISTORY Type Description Date Medical History colitis Medical History right shoulder pain Surgical History Appendectomy Surgical History Abscess drained and removed Hospitalization History surgery Hospitalization History dehydration Hospitalization History chest pain, pancytopenia, slenomegaly-[facility] 10/25/17
--- OUTSIDE RECORDS SUMMARY | 2018-06-13 15:51 | XMS REPORT ---
Author Author XOCHILT PANCHAL Organization [facility] Address [address] [place] [address] Care Team Providers Care Assistant Manager Trainee Name Role Phone ISAAC PANCHALMERRILL Unavailable PROBLEMS Type Condition ICD9-CM Code UKU78-KN Code Onset Dates Condition Status SNOMED Code Problem GERD with esophagitis K21.0 Active 547442929 Problem Morbid (severe) obesity due to excess calories E66.01 Active 87358284087885 Problem Essential hypertension I10 Active 91591056 Problem Other chronic pain G89.29 Active 43654800 Problem Gastroesophageal reflux disease with esophagitis K21.0 Active 023148211 Problem Other ulcerative colitis without complication K51.80 Active 09345963 Problem Pancytopenia D61.818 Active 775347981 Problem Temporary low platelet count D69.6 Active 548682459 Problem Body mass index (BMI) of 40.0-44.9 in adult Z68.41 Active 654821647 Problem Body mass index (BMI) of 45.0-49.9 in adult Z68.42 Active 430343355 Problem Neutropenia, unspecified type D70.9 Active 840920164 Problem Other chronic pain G89.29 Active 19054775 ALLERGIES Substance Reaction Event Type Date Status Morphine Sulfate nausea and vomiting Drug Allergy Jun, Active ENCOUNTERS Encounter Location Date Diagnosis [facility] [id number], [place] [address] Jan, [facility] [id number], [place] [address] Nov, Other chronic pain G89.29 [facility] [id number], [place] [address] Nov, [facility] [id number] [address] Nov, [facility] [id number] [place] [address]393- 8769 October, Other chronic pain G89.29 ; Pain in right knee M25.561 ; Pain in left knee M25.562 and Abdominal pain, left lower quadrant R10.32 [facility] [id number] [place] [address]25- 3985 October, [place] [address] [address] October, Splenomegaly R16.1 ; Neutropenia, unspecified type D70.9 and Temporary low platelet count D69.6 [facility] [address] [address] October, [place] [address] [address]- 130[address] October, Pancytopenia D61.818 [place] [address] 6[address]- 6562 October, [place] [id number] [place] [address] 50492- 9696 October, [place] [address] [address]328- 1266 October, Pancytopenia D61.818 [facility] [id number] [place] [address] 93588- 3717 Sep, Other chronic pain G89.29 ; Pain in left knee M25.562 ; Pain in right knee M25.561 and Abdominal pain, left lower quadrant R10.32 [place] [id number] [place] [address] 65708- 5292 Sep, Edema of left lower extremity R60.0 ; Essential hypertension I10 ; Morbid (severe) obesity due to excess calories E66.01 ; Body mass index (BMI) of 40.0-44.9 in adult Z68.41 and Hiatal hernia K44.9 [place] [address] [place] [address] Aug, [place] [id number] [place] [address] 23452- 8230 Aug, [place] [id number] [place] [address] 04477- 2098 Jul, Pain in right shoulder M25.511 [place] [address] [address]- [address] Jul, [facility] [place] [id number] [place] [address]87 -6647 Jul, Localized edema R60.0 and BMI 40.0-44.9, adult Z68.41 [place] [id number] [place] [address] 88439- 0811 Jul, [place] [address] 8[address]16- 6[address] Jun, Edema of left lower extremity R60.0 ; Essential hypertension I10 ; Family history of coronary artery disease Z82.49 ; Morbid ( severe) obesity due to excess calories E66.01 and Body mass index (BMI) of 45.0- 49.9 in adult Z68.42 [place] [id number] [place] [address] 75976- 3132 Jun, Other chronic pain G89.29 [place] [id number] [place] [address] 31092- 7414 Jun, Pain in right shoulder M25.511 [place] [id number] [place] [address] 06819- 6282 Jun, Other ulcerative colitis without complication K51.80 [facility] [id number] [place] [address]02 -8687 May, [place] [id number] [place] [address] 71196- 3485 May, GERD with esophagitis K21.0 ; Other ulcerative colitis without complication K51.80 and Other chest pain R07.89 [facility] [id number] [address] May, [facility] [id number] [place] [address] 61876 2546 May, Left leg swelling M79.89 [facility] [id number] [place] [address] 59137- 8326 Apr, Pain in right shoulder M25.511 [facility] [id number] [place] [address] 68004- 1016 Apr, Pain in right shoulder M25.511 [facility] [id number] [place] [address] 65152- 7036 Mar, [facility] [id number] [place] [address] 80653- 5176 Mar, Pain in right shoulder M25.511 [facility] [id number] [place] [address] 44085- 8236 Mar, [facility] [id number] [place] [address] 48742- 8096 Mar, [facility] [id number] [place] [address] 84897 2546 Feb, Pain in right shoulder M25.511 [facility] [id number] [place] [address] 78864- 6676 Jan, Pain in right shoulder M25.511 [facility] [id number] [address] Jan, [facility] [id number] [place] [address] 91677 2546 Dec, Pain in right shoulder M25.511 [facility] [id number] [place] [address] 29405 2546 Nov, Pain in right shoulder M25.511 [facility] [id number] [place] [address] 86973- 3572 Nov, Pain in right shoulder M25.511 [facility] [id number] [place] [address] 25876- 3107 October, Pain in right shoulder M25.511 [facility] [id number] [place] [address] 73726- 1071 Sep, Pain in right shoulder M25.511 [facility] [id number] [place] [address] 41014- 1090 Aug, Pain in right shoulder M25.511 [facility] [id number] [place] [address] 56439- 3905 10 Jul, 2016 Pain in right shoulder M25.511 [facility] [id number] [place] [address] 40351- 0452 Jul, Pain in left shoulder M25.512 [facility] [id number] [place] [address] 50792- 1416 10 Jul, 2016 Other chronic pain G89.29 [facility] [id number] [place] [address] 04656- 8516 09 Jul, 2016 Pain in right shoulder M25.511 ; Other chronic pain G89.29 ; Pain in left shoulder M25.512 and Gastroesophageal reflux disease with esophagitis K21.0 [facility] [id number] [place] [address] 76293- 8073 Jun, [facility] [id number] [place] [address] 63067- 5075 May, [facility] [id number] [place] [address] 587668- 4619 May, [facility] [id number] [place] [address] 64776- 8132 Apr, [facility] [id number] [place] [address] 98105- 6570 Mar, [facility] [address], [place] [address]- 7979 22 Feb, 2016 [facility] [id number] [place] [address] 91663- 6492 13 Feb, 2016 [facility] [id number] [place] [address] 80921- 4060 12 Feb, 2016 [facility] [id number] [place] [address] 77477- 7470 06 Feb, 2016 [facility] [id number] [place] [address] 08943- 0257 Jan, [facility] [id number] [place] [address] 50931- 0453 Dec, Pain in left shoulder M25.512 [facility] [id number] [place] [address] 25875- 1166 Dec, Gastroesophageal reflux disease, esophagitis presence not specified K21.9 [facility] [id number] [place] [address] 73104- 9131 Nov, Pain in left shoulder M25.512 [facility] [id number] [place] [address] 08572- 9706 October, Pain in left shoulder M25.512 [facility] [id number] [place] [address] 57272- 8192 Sep, Shoulder pain, left M25.512 [facility] [id number] [place] [address] 36542- 5431 Aug, Pain in right shoulder M25.511 and Other chronic pain G89.29 [facility] [id number] [place] [address] 65254- 6928 07 Aug, 2015 Shoulder pain, right M25.511 and GERD (gastroesophageal reflux disease) K21.9 [facility] [id number] [place] [address] 07974- 7703 08 Nov, 2014 [facility] [place] [facility] [address] [id number] [place] [address]- 3810 14 Sep, 2014 [facility] [place] [facility] [address] [id number] [place] [address]- 7420 Sep, [facility] [place] [facility] [address] [id number] [place] [address]- 3123 Jul, 2014 [facility] [place] [facility] [address] [id number] [place] [address]- 5215 Jul, [facility] [place] [facility] [address] [id number] [place] [address]- 5395 Jul, [facility] [place] [facility] [address] [id number] [place] [address]- 0828 Jul, [facility] [place] [facility] [address] [id number] [place] [address]- 7946 Jul, [facility] [place] [facility] [address] [id number] [place] [address]- 0216 Jul, [facility] [place] [facility] [address] [id number] [place] [address]- 9804 Jun, [facility] [place] [facility] [address] [id number] [place] [address]- 3955 Jun, [facility] [place] [facility] [address] [id number] [address]- 7645 Apr, [facility] [place] [facility] [address] [id number] [address]- 9552 Apr, [facility] [place] [facility] [address] [id number] [place] [address]- 2164 Apr, [facility] [place] [facility] [address] [id number] [place] [address]- 5232 Feb, [facility] [place] [facility] [address] [id number] [place] [address]- 8510 Feb, [facility] [place] [facility] [address] [id number] [place] [address]- 2888 11 Feb, 2013 [facility] [place] [facility] [address] [id number] [place] [address]- 2385 11 Feb, 2014 [facility] [place] [facility] [address] [id number] [place] [address]- 3679 Aug, [facility] [place] [facility] [address] [id number] [place] [address]- 8402 Aug, [facility] [place] [facility] [address] [id number] [place] [address]- 6614 Mar, [facility] [place] [facility] [address] [id number] [place] [address] Mar, [facility] [place] [facility] [address] [id number] [place] [address]- 0885 Mar, [facility] [place] [facility] [address] [id number] [place] [address]- 5875 Mar, [facility] [place] [facility] [address] [id number] [place] [address]- 8264 09 Feb, 2013 [facility] [place] [facility] [address] [id number] [place] [address]- 0461 06 Feb, 2013 [facility] [place] [facility] [address] [id number] [place] [address]- 0787 Feb, [facility] [place] [facility] [address] [id number] [place] [address]- 0019 30 Jan, 2013 [facility] [place] [facility] [address] [id number] [place] [address] 2540 Jan, [facility] [place] [facility] [address] [id number] [place] [address]- 5417 Dec, [facility] [place] [facility] [address] [id number] [place] [address]- 9031 Dec, [facility] [place] [facility] [address] [id number] [place] [address]- 8116 Nov, [facility] [id number] [address]- [address] Nov, [facility] [id number], [place] [address]- 5635 Jan, [facility] [address], [place] [address]- 3306 Jan, [facility] [address], [place] [address]- 1172 Aug, [facility] [id number] [address]- 2659 Jun, [facility] [address], [place] [address]- 7396 Jun, [facility] [address], [place] [address]- 1011 Apr, [facility] [address], [place] [address]- 0688 Feb, IMMUNIZATIONS No Known Immunizations SOCIAL HISTORY Never Assessed REASON FOR VISIT left lower ext. with 2+ pitting edema- Venous U/S normal--EKG was done while here at [facility] on the 18 of June-Ahmet MCDONNELL PLAN OF CARE Activity Details Follow Up 2 Months Reason: VITAL SIGNS Height 69 in 2017-07-09 Temperature 97.8 degrees Fahrenheit 2017-07-09 Heart Rate 108 bpm 2017-07-09 Respiratory Rate 18 2017-07-09 Oximetry on room air:97 % 2017-07-09 Blood pressure systolic 126 mmHg 2017-07-09 Blood pressure diastolic 84 mmHg 2017-07-09 MEDICATIONS Medication Instructions Dosage Frequency Start Date End Date Duration Status Dicyclomine HCl 20 mg Orally Four times a day 1 tablet 6h May, Sep, 30 day(s) Active Protonix 40 mg 1 tablet 24h Not-Taking Hydrocodone-Acetaminophen 5-325 MG Orally every 6 hrs- Must last 30 days 1 tablet as needed Jun, 28 days Active Pepcid 20 mg Orally Once a day 1 tablet at bedtime 24h May, 30 day(s) Active RESULTS Name Result Date Reference Range Echo 2D 2017-08-03 PROCEDURES Procedure Date Ordered Result Body Site MEASURE BLOOD OXYGEN LEVEL Jul 09, 2017 INSTRUCTIONS MEDICATIONS ADMINISTERED No Known Medications MEDICAL (GENERAL) HISTORY Type Description Date Medical History colitis Medical History right shoulder pain Surgical History Appendectomy Surgical History Abscess drained and removed Hospitalization History surgery Hospitalization History dehydration Hospitalization History chest pain, pancytopenia, slenomegaly-[facility] 10/25/17
--- OUTSIDE RECORDS SUMMARY | 2018-06-13 15:51 | XMS REPORT ---
Author Author ALVARADO TRISTAN [facility] Address [address] [place] [address] Care Team Providers Care Wind Development Director Name Role Phone ALVARADO TRISTAN Unavailable PROBLEMS Type Condition ICD9-CM Code [id number] Code Onset Dates Condition Status SNOMED Code Problem GERD with esophagitis K21.0 Active 656164337 Problem Morbid (severe) obesity due to excess calories E66.01 Active 12922300633952 Problem Essential hypertension I10 Active 99657809 Problem Other chronic pain G89.29 Active 97711688 Problem Gastroesophageal reflux disease with esophagitis K21.0 Active 550877186 Problem Other ulcerative colitis without complication K51.80 Active 74205452 Problem Pancytopenia D61.818 Active 097231547 Problem Temporary low platelet count D69.6 Active 799486124 Problem Body mass index (BMI) of 40.0-44.9 in adult Z68.41 Active 901935264 Problem Body mass index (BMI) of 45.0-49.9 in adult Z68.42 Active 973837304 Problem Neutropenia, unspecified type D70.9 Active 590016372 Problem Other chronic pain G89.29 Active 26777767 ALLERGIES Substance Reaction Event Type Date Status Morphine Sulfate nausea and vomiting Drug Allergy Jul, Active ENCOUNTERS Encounter Location Date Diagnosis [facility] [id number] [address] Jan, [facility] [id number] [place] [address] 07806- 4272 Nov, Other chronic pain G89.29 [facility] [id number] [address] Nov, [facility] [id number] [place] [address] 79483- 7455 Nov, [facility] [id number] [place] [address] 43770- 4535 October, Other chronic pain G89.29 ; Pain in right knee M25.561 ; Pain in left knee M25.562 and Abdominal pain, left lower quadrant R10.32 [facility] [id number] [place] [address] 57476- 7290 October, [facility] [address] [address] October, Splenomegaly R16.1 ; Neutropenia, unspecified type D70.9 and Temporary low platelet count D69.6 [facility] [address] [address] October, [facility] [address] [address] October, Pancytopenia D61.818 [place] [id number] [place] [address] 01216- 3943 October, [facility] [id number] [place] [address] 57637- 3890 October, [place] [address] [address]- 89[address] October, Pancytopenia D61.818 [place] [address] [address]- 1263 Sep, Other chronic pain G89.29 ; Pain in left knee M25.562 ; Pain in right knee M25.561 and Abdominal pain, left lower quadrant R10.32 [place] [address] [address]- 6186 Sep, Edema of left lower extremity R60.0 ; Essential hypertension I10 ; Morbid (severe) obesity due to excess calories E66.01 ; Body mass index (BMI) of 40.0-44.9 in adult Z68.41 and Hiatal hernia K44.9 [facility] [id number] [place] [address] 96277- 5757 Aug, [place] [id number] [place] [address] 25514- 8259 Aug, [place] [id number] [place] [address] 94259- 4122 Jul, Pain in right shoulder M25.511 [place] [address] [address]- [address]41 Jul, [facility] [place] [id number] [place] [address]37 -5145 Jul, Localized edema R60.0 and BMI 40.0-44.9, adult Z68.41 [place] [id number] [place] [address] 31691- 3493 Jul, [place] [address] 7[address]51- 6444 Jun, Edema of left lower extremity R60.0 ; Essential hypertension I10 ; Family history of coronary artery disease Z82.49 ; Morbid ( severe) obesity due to excess calories E66.01 and Body mass index (BMI) of 45.0- 49.9 in adult Z68.42 [place] [id number] [place] [address] 80579- 5749 Jun, Other chronic pain G89.29 [place] [id number] [place] [address] 68520- 5906 Jun, Pain in right shoulder M25.511 [place] [id number] [place] [address] 47947- 9002 Jun, Other ulcerative colitis without complication K51.80 [facility] [place] [id number] [place] [address] 18295 -1383 May, [place] [id number] [place] [address] 89475- 6070 29 Dec, 2017 GERD with esophagitis K21.0 ; Other ulcerative colitis without complication K51.80 and Other chest pain R07.89 [facility] [id number] [place] [address] 87426- 8386 May, [facility] [id number] [place] [address] 18796 -6256 May, Left leg swelling M79.89 [facility] [address] 85342- 0427 Apr, Pain in right shoulder M25.511 [facility] [id number] [place] [address] 41733- 6593 Apr, Pain in right shoulder M25.511 [facility] [id number] [place] [address] 10302- 4036 Mar, [facility] [id number] [place] [address] 87368- 2569 Mar, Pain in right shoulder M25.511 [facility] [id number] [place] [address] 73676- 8126 Mar, [facility] [id number] [place] [address] 35760- 5376 Mar, [facility] [id number] [place] [address] 60833- 3858 Feb, Pain in right shoulder M25.511 [facility] [id number] [place] [address] 38797- 1129 Jan, Pain in right shoulder M25.511 [facility] [id number] [place] [address] 71949- 3006 Jan, [facility] [id number] [place] [address] 68451- 7286 Dec, Pain in right shoulder M25.511 [facility] [id number] [place] [address] 48498- 2026 Nov, Pain in right shoulder M25.511 [facility] [address] [address]- 1131 Nov, Pain in right shoulder M25.511 [facility] [id number] [place] [address] 29307- 8496 October, Pain in right shoulder M25.511 [facility] [id number] [place] [address] 70725- 4350 Sep, Pain in right shoulder M25.511 [facility] [id number] [place] [address] 02687- 7613 Aug, Pain in right shoulder M25.511 [facility] [id number] [place] [address] 46913- 1110 Jul, Pain in right shoulder M25.511 [facility] [id number] [place] [address] 81126- 5135 Jul, Pain in left shoulder M25.512 [facility] [id number] [place] [address] 42259- 1930 Jul, Other chronic pain G89.29 [facility] [id number] [place] [address] 76210- 6061 Jul, Pain in right shoulder M25.511 ; Other chronic pain G89.29 ; Pain in left shoulder M25.512 and Gastroesophageal reflux disease with esophagitis K21.0 [facility] [address] [place] [address] 75216- 6501 Jun, [facility] [address] [place] [address] 43013- 6745 May, [facility] [id number] [place] [address] 55411- 7342 May, [facility] [address] [address]- 9889 Apr, [facility] [id number] [place] [address] 63140- 3026 Mar, [facility] [id number] [place] [address] 71826- 3865 22 Feb, 2016 [facility] [id number] [place] [address] 86338- 0485 13 Feb, 2016 [facility] [id number] [place] [address] 51913- 8932 Feb, [facility] [id number] [place] [address] 06038- 4676 06 Feb, 2016 [facility] [id number] [place] [address] 88242- 1164 Jan, [facility] [id number] [place] [address] 14373- 0232 Dec, Pain in left shoulder M25.512 [place] [id number] [place] [address] 61533- 8951 Dec, Gastroesophageal reflux disease, esophagitis presence not specified K21.9 [facility] [id number] [place] [address] 79648- 7664 Nov, Pain in left shoulder M25.512 [facility] [id number] [place] [address] 93648- 7254 October, Pain in left shoulder M25.512 [facility] [id number] [place] [address] 06211- 0250 Sep, Shoulder pain, left M25.512 [facility] [id number] [place] [address] 62588- 8462 Aug, Pain in right shoulder M25.511 and Other chronic pain G89.29 [facility] [id number] [place] [address] 19229- 4479 Aug, Shoulder pain, right M25.511 and GERD (gastroesophageal reflux disease) K21.9 [facility] [id number] [place] [address] 62526- 1185 08 Nov, 2014 [facility] [place] [facility] [address] [id number] [place] [address]- 9856 14 Sep, 2014 [facility] [place] [facility] [address] [id number] [place] [address]- 7240 Sep, [facility] [place] [facility] [address] [id number] [place] [address]- 6204 Jul, [facility] [place] [facility] [address] [id number] [place] [address]- 3604 Jul, 2014 [facility] [place] [facility] [address] [id number] [place] [address]- 6110 Jul, [facility] [place] [facility] [address] [id number] [place] [address]- 7873 Jul, [facility] [place] [facility] [address] [id number] [place] [address]- 2234 Jul, [facility] [place] [facility] [address] [id number] [place] [address]- 6559 Jul, [facility] [place] [facility] [address] [id number] [place] [address]- 2110 Jun, [facility] [place] [facility] [address] [id number] [place] [address]- 5136 Jun, [facility] [place] [facility] [address] [id number] [address]- 4396 Apr, [facility] [place] [facility] [address] [id number] [address]- 9143 Apr, [facility] [place] [facility] [address] [id number] [address]- 2221 Apr, [facility] [place] [facility] [address] [id number] [place] [address]- 4621 Feb, [facility] [place] [facility] [address] [id number] [address]- 1158 Feb, [facility] [place] [facility] [address] [id number] [place] [address]- 1412 11 Feb, 2013 [facility] [place] [facility] [address] [id number] [place] [address]- 5241 11 Feb, 2014 [facility] [place] [facility] [address] [id number] [place] [address]- 3499 Aug, [facility] [place] [facility] [address] [id number] [place] [address]- 4116 Aug, [facility] [place] [facility] [address] [id number] [place] [address]- 6733 Mar, [facility] [place] [facility] [address] [id number] [place] [address]- 2714 Mar, [facility] [place] [facility] [address] [id number] [place] [address]- 7791 Mar, [facility] [place] [facility] [address] [id number] [place] [address]- 6752 16 Mar, 2013 [facility] [place] [facility] [address] [id number] [place] [address]- 3612 09 Feb, 2013 [facility] [place] [facility] [address] [id number] [place] [address]- 2885 06 Feb, 2013 [facility] [place] [facility] [address] [id number] [place] [address]- 0602 Feb, [facility] [place] [facility] [address] [id number] [place] [address]- 8649 30 Jan, 2013 [facility] [place] [facility] [address] [id number] [place] [address] 2543 Jan, [facility] [place] [facility] [address] [id number] [place] [address]- 9742 Dec, [facility] [place] [facility] [address] [id number] [place] [address]- 2544 Dec, [facility] [place] [facility] [address] [id number] [place] [address]- 4777 Nov, [facility] [id number] [address]- 3956 Nov, [facility] [address] [address]- 1006 Jan, [facility] [id number] [address]- 1756 Jan, [facility] [id number] [address]- 6156 Aug, [facility] [id number] [address]- 2806 Jun, [facility] [address] [address]- 0156 Jun, [facility] [address] [address]- 5906 Apr, [facility] [address] [address]- 8046 Feb, IMMUNIZATIONS No Known Immunizations SOCIAL HISTORY Never Assessed REASON FOR VISIT left leg swelling started yesterday JStrasserRN PLAN OF CARE Activity Details Follow Up prn Reason: VITAL SIGNS Height 69 in 2017-07-23 Weight 280.6 lbs 2017-07-23 Temperature 98.5 degrees Fahrenheit 2017-07-23 Heart Rate 72 bpm 2017-07-23 Respiratory Rate 18 2017-07-23 BMI 41.43 kg/m2 2017-07-23 Blood pressure systolic 120 mmHg 2017-07-23 Blood pressure diastolic 74 mmHg 2017-07-23 MEDICATIONS Medication Instructions Dosage Frequency Start Date End Date Duration Status Pepcid 20 mg Orally Once a day 1 tablet at bedtime 24h May, 30 day(s) Active Hydrocodone-Acetaminophen 5-325 MG Orally every 6 hrs- Must last 30 days 1 tablet as needed Jun, 28 days Active Dicyclomine HCl 20 mg Orally Four times a day 1 tablet 6h May, Sep, 30 day(s) Active Protonix 40 mg 1 tablet 24h Not-Taking RESULTS No Results PROCEDURES No Known procedures INSTRUCTIONS MEDICATIONS ADMINISTERED No Known Medications MEDICAL (GENERAL) HISTORY Type Description Date Medical History colitis Medical History right shoulder pain Surgical History Appendectomy Surgical History Abscess drained and removed Hospitalization History surgery Hospitalization History dehydration Hospitalization History chest pain, pancytopenia, slenomegaly-[facility] 10/25/17
--- OUTSIDE RECORDS SUMMARY | 2018-06-13 15:51 | XMS REPORT ---
Author Author AMY HALEY Organization [facility] Address [address] [place] [address] Care Team Providers Care Healthcare Specialist Name Role Phone AMY HALEY Unavailable PROBLEMS Type Condition ICD9-CM Code AAP32-GJ Code Onset Dates Condition Status SNOMED Code Problem GERD with esophagitis K21.0 Active 832531089 Problem Morbid (severe) obesity due to excess calories E66.01 Active 13705857542583 Problem Essential hypertension I10 Active 93810647 Problem Other chronic pain G89.29 Active 39818009 Problem Gastroesophageal reflux disease with esophagitis K21.0 Active 226187992 Problem Other ulcerative colitis without complication K51.80 Active 93560090 Problem Pancytopenia D61.818 Active 980187655 Problem Temporary low platelet count D69.6 Active 213695139 Problem Body mass index (BMI) of 40.0-44.9 in adult Z68.41 Active 499083408 Problem Body mass index (BMI) of 45.0-49.9 in adult Z68.42 Active 357784098 Problem Neutropenia, unspecified type D70.9 Active 383199955 Problem Other chronic pain G89.29 Active 87696265 ALLERGIES No Information ENCOUNTERS Encounter Location Date Diagnosis [facility] [id number] [address] Jan, [facility] [id number] [place] [address] 36269- 3166 Nov, Other chronic pain G89.29 [facility] [id number] [place] [address] 94755- 9457 Nov, [facility] [address] [address] Nov, [facility] [id number] [place] [address] 97444- 5522 October, Other chronic pain G89.29 ; Pain in right knee M25.561 ; Pain in left knee M25.562 and Abdominal pain, left lower quadrant R10.32 [facility] [id number] [place] [address] 09780- 9129 October, [facility] [id number] [place] [address] 80522- 1063 October, Splenomegaly R16.1 ; Neutropenia, unspecified type D70.9 and Temporary low platelet count D69.6 [facility] [id number] [place] [address] 81552 -8717 October, [facility] [id number] [place] [address] 16295- 6745 October, Pancytopenia D61.818 [facility] [id number] [place] [address] 61497- 6260 October, [facility] [id number] [place] [address] 60108- 9675 October, [facility] [id number] [place] [address] 81859- 4954 October, Pancytopenia D61.818 [facility] [id number] [place] [address] 34535- 0552 Sep, Other chronic pain G89.29 ; Pain in left knee M25.562 ; Pain in right knee M25.561 and Abdominal pain, left lower quadrant R10.32 [facility] [id number] [place] [address] 20163- 8794 Sep, Edema of left lower extremity R60.0 ; Essential hypertension I10 ; Morbid (severe) obesity due to excess calories E66.01 ; Body mass index (BMI) of 40.0-44.9 in adult Z68.41 and Hiatal hernia K44.9 [facility] [id number] [place] [address] 36534- 0163 Aug, [place] [id number] [place] [address] 08939- 7410 Aug, [facility] [facility] [id number] [place] [address] 96725- 6094 Jul, Pain in right shoulder M25.511 [facility] [facility] [id number] [place] [address] 46266- 9451 Jul, [facility] [place] [address] [address] -7463 Jul, Localized edema R60.0 and BMI 40.0-44.9, adult Z68.41 [place] [address] 74980- 7120 Jul, [place] [id number] [place] [address] 26642- 8184 Jun, Edema of left lower extremity R60.0 ; Essential hypertension I10 ; Family history of coronary artery disease Z82.49 ; Morbid ( severe) obesity due to excess calories E66.01 and Body mass index (BMI) of 45.0- 49.9 in adult Z68.42 [facility] [facility] [id number] [place] [address] 35039- 3009 Jun, Other chronic pain G89.29 [place] [facility] [id number] [place] [address] 25823- 4011 Jun, Pain in right shoulder M25.511 [place] [id number] [place] [address] 75606- 8147 Jun, Other ulcerative colitis without complication K51.80 [facility] [id number] [place] [address] 02092 -3763 May, [place] [id number] [place] [address] 97285- 7677 May, GERD with esophagitis K21.0 ; Other ulcerative colitis without complication K51.80 and Other chest pain R07.89 [place] [address] [address] May, [facility] [id number] [place] [address] 17024 -6526 May, Left leg swelling M79.89 [facility] [address], [place] [address] 9976 Apr, Pain in right shoulder M25.511 [facility] [id number] [place] [address] 36627- 7749 Apr, Pain in right shoulder M25.511 [facility] [id number] [place] [address] 87392- 3786 Mar, [facility] [id number] [place] [address] 96435- 0356 Mar, Pain in right shoulder M25.511 [facility] [id number] [place] [address] 15391- 3706 Mar, [facility] [id number] [place] [address] 44326- 3075 Mar, [facility] [id number] [place] [address] 19373- 2416 Feb, Pain in right shoulder M25.511 [facility] [id number] [address] 2336 Jan, Pain in right shoulder M25.511 [facility] [id number] [address] 2546 Jan, [facility] [address], [place] [address]- 4666 Dec, Pain in right shoulder M25.511 [facility] [address], [place] [address] 2546 Nov, Pain in right shoulder M25.511 [facility] [id number] [place] [address] 91710- 1438 Nov, Pain in right shoulder M25.511 [facility] [address] [address]- 9071 October, Pain in right shoulder M25.511 [facility] [id number] [address]- 9856 Sep, Pain in right shoulder M25.511 [facility] [id number] [place] [address] 16639- 6869 Aug, Pain in right shoulder M25.511 [facility] [id number] [place] [address] 21059- 0306 Jul, Pain in right shoulder M25.511 [facility] [id number] [place] [address] 276732- 1968 Jul, Pain in left shoulder M25.512 [facility] [id number] [place] [address] 97869- 1275 Jul, Other chronic pain G89.29 [facility] [id number] [address]- 4618 Jul, Pain in right shoulder M25.511 ; Other chronic pain G89.29 ; Pain in left shoulder M25.512 and Gastroesophageal reflux disease with esophagitis K21.0 [facility] [address], [place] [address]- 7125 Jun, [facility] [address], [place] [address]- 9836 May, [facility] [address] 4110 May, [facility] [id number] [place] [address] 420061- 6356 15 Apr, 2016 [facility] [address] 4866 Mar, [facility] [id number] [place] [address] 19145- 0694 22 Feb, 2016 [facility] [id number] [place] [address] 76079- 4916 13 Feb, 2016 [facility] [id number] [place] [address] 39127- 6823 12 Feb, 2016 [facility] [id number] [place] [address] 67853- 8103 06 Feb, 2016 [facility] [address] 05965- 4049 Jan, [facility] [address] 33602- 1272 Dec, Pain in left shoulder M25.512 [facility] [id number] [place] [address] 79658- 2935 Dec, Gastroesophageal reflux disease, esophagitis presence not specified K21.9 [facility] [address] 76210- 9535 Nov, Pain in left shoulder M25.512 [facility] [address] 39874- 9624 October, Pain in left shoulder M25.512 [facility] [id number] [place] [address] 86636- 8561 Sep, Shoulder pain, left M25.512 [facility] [id number] [place] [address] 41073- 7776 Aug, Pain in right shoulder M25.511 and Other chronic pain G89.29 [facility] [id number] [place] [address] 71438- 5020 07 Aug, 2015 Shoulder pain, right M25.511 and GERD (gastroesophageal reflux disease) K21.9 [facility] [id number] [place] [address] 38675- 9268 08 Nov, 2014 [facility] [address] 43176- 7042 14 Sep, 2014 [facility] [place] [facility] [address] [id number] [place] [address]- 3261 13 Sep, 2014 [facility] [place] [facility] [address] [id number] [place] [address]- 3490 Jul, 2014 [facility] [place] [facility] [address] [id number] [place] [address]- 5961 Jul, 2014 [facility] [place] [facility] [address] [id number] [place] [address]- 5939 Jul, 2014 [facility] [place] [facility] [address] [id number] [place] [address]- 3573 Jul, 2014 [facility] [place] [facility] [address] [id number] [place] [address]- 4177 Jul, [facility] [place] [facility] [address] [id number] [place] [address]- 5029 Jul, [facility] [place] [facility] [address] [id number] [place] [address]- 0671 Jun, [facility] [place] [facility] [address] [id number] [place] [address]- 9869 Jun, [facility] [place] [facility] [address] [facility] [id number] [place] [address]- 9911 Apr, [facility] [place] [facility] [address] [id number] [place] [address]- 7625 Apr, [facility] [place] [facility] [address] [id number] [address]- 8135 Apr, [facility] [place] [facility] [address] [id number] [place] [address]- 8911 Feb, [facility] [place] [facility] [address] [id number] [place] [address]- 5581 Feb, [facility] [place] [facility] [address] [id number], [place] [address]- 4056 Feb, [facility] [place] [facility] [address] [id number] [place] [address]- 1747 Feb, [facility] [place] [facility] [address] [id number] [place] [address]- 4275 Aug, [facility] [place] [facility] [address] [id number] [place] [address]- 6578 Aug, [facility] [place] [facility] [address] [id number] [place] [address]- 5444 Mar, [facility] [place] [facility] [address] [id number] [place] [address]- 5246 Mar, [facility] [place] [facility] [address] [id number] [place] [address]- 5918 Mar, [facility] [place] [facility] [address] [id number] [place] [address]- 8613 Mar, [facility] [place] [facility] [address] [id number] [place] [address]- 6652 Feb, [facility] [place] [facility] [address] [id number] [place] [address]- 9661 Feb, [facility] [place] [facility] [address] [id number] [place] [address]- 8919 Feb, [facility] [place] [facility] [address] [id number] [place] [address]- 8177 30 Jan, 2013 [facility] [place] [facility] [address] [id number] [place] [address]- 0291 Jan, [facility] [place] [facility] [address] [id number] [place] [address]- 6361 Dec, [facility] [place] [facility] [address] [id number] [place] [address]- 1841 15 Dec, 2012 [facility] [place] [facility] [address] [id number] [place] [address]- 9299 Nov, [facility] [place] [facility] [address] [id number] [address]- 6406 14 Nov, 2012 [facility] [id number] [address]- 4106 Jan, [facility] [address] [address]- 2546 Jan, [facility] [address] [address]- 2546 Aug, [facility] [address] [address]- 2546 Jun, [facility] [id number] [address] 2546 Jun, [facility] [id number] [address]- 1696 Apr, [facility] [id number] [address]- 4006 17 Feb, 2010 IMMUNIZATIONS No Known Immunizations SOCIAL HISTORY Never Assessed REASON FOR VISIT Leg swelling concerns PLAN OF CARE VITAL SIGNS MEDICATIONS Unknown Medications RESULTS No Results PROCEDURES No Known procedures INSTRUCTIONS MEDICATIONS ADMINISTERED No Known Medications MEDICAL (GENERAL) HISTORY Type Description Date Medical History colitis Medical History right shoulder pain Surgical History Appendectomy Surgical History Abscess drained and removed Hospitalization History surgery Hospitalization History dehydration Hospitalization History chest pain, pancytopenia, slenomegaly-[facility] 10/25/17
--- OUTSIDE RECORDS SUMMARY | 2018-06-13 15:52 | XMS REPORT ---
Author Author AMY HALEY Organization [facility] [place] Address [address] [place] [address] Care Team Providers Care Mainframe Software Developer Name Role Phone AMY HALEY Unavailable PROBLEMS Type Condition ICD9-CM Code MIL06-IK Code Onset Dates Condition Status SNOMED Code Problem GERD with esophagitis K21.0 Active 333794742 Problem Morbid (severe) obesity due to excess calories E66.01 Active 87355227013998 Problem Essential hypertension I10 Active 41840709 Problem Other chronic pain G89.29 Active 37634314 Problem Gastroesophageal reflux disease with esophagitis K21.0 Active 173041042 Problem Other ulcerative colitis without complication K51.80 Active 42158385 Problem Pancytopenia D61.818 Active 449718880 Problem Temporary low platelet count D69.6 Active 151834042 Problem Body mass index (BMI) of 40.0-44.9 in adult Z68.41 Active 760698561 Problem Body mass index (BMI) of 45.0-49.9 in adult Z68.42 Active 723232945 Problem Neutropenia, unspecified type D70.9 Active 514760782 Problem Other chronic pain G89.29 Active 83171866 ALLERGIES No Information ENCOUNTERS Encounter Location Date Diagnosis [facility] [place] [id number] [address] Jan, [facility] [place] [id number] [place] [address] 25854- 0283 Nov, Other chronic pain G89.29 [facility] [place] [id number] [place] [address] 34824- 7894 Nov, [facility] [place] [address] [address] Nov, [facility] [place] [id number] [place] [address] 13312- 4148 October, Other chronic pain G89.29 ; Pain in right knee M25.561 ; Pain in left knee M25.562 and Abdominal pain, left lower quadrant R10.32 [facility] [place] [id number] [place] [address] 86334- 4590 October, [facility] [place] [id number] [place] [address] 14604- 1824 October, Splenomegaly R16.1 ; Neutropenia, unspecified type D70.9 and Temporary low platelet count D69.6 [facility] [id number] [place] [address] 17551 -1391 October, [facility] [place] [id number] [place] [address] 42894- 4645 October, Pancytopenia D61.818 [facility] [place] [id number] [place] [address] 37784- 1030 October, [facility] [place] [id number] [place] [address] 15157- 6049 October, [facility] [place] [id number] [place] [address] 45935- 7318 October, Pancytopenia D61.818 [facility] [place] [id number] [place] [address] 49341- 4991 Sep, Other chronic pain G89.29 ; Pain in left knee M25.562 ; Pain in right knee M25.561 and Abdominal pain, left lower quadrant R10.32 [facility] [place] [id number] [place] [address] 51382- 0809 Sep, Edema of left lower extremity R60.0 ; Essential hypertension I10 ; Morbid (severe) obesity due to excess calories E66.01 ; Body mass index (BMI) of 40.0-44.9 in adult Z68.41 and Hiatal hernia K44.9 [facility] [place] [id number] [place] [address] 11275- 2557 Aug, [place] [id number] [place] [address] 07543- 7867 Aug, [place] [id number] [place] [address] 81076- 1545 Jul, Pain in right shoulder M25.511 [place] [id number] [place] [address] 04169- 2720 Jul, [facility] [place] [address] [address] -[address]708 Jul, Localized edema R60.0 and BMI 40.0-44.9, adult Z68.41 [place] [address] 65755- 9354 Jul, [place] [id number] [place] [address] 33504- 4896 Jun, Edema of left lower extremity R60.0 ; Essential hypertension I10 ; Family history of coronary artery disease Z82.49 ; Morbid ( severe) obesity due to excess calories E66.01 and Body mass index (BMI) of 45.0- 49.9 in adult Z68.42 [place] [id number] [place] [address] 66625- 1102 Jun, Other chronic pain G89.29 [place] [id number] [place] [address] 16511- 3978 Jun, Pain in right shoulder M25.511 [place] [id number] [place] [address] 53437- 5210 Jun, Other ulcerative colitis without complication K51.80 [facility] [id number] [place] [address] 41268 -9209 May, [place] [id number] [place] [address] 10307- 7542 May, GERD with esophagitis K21.0 ; Other ulcerative colitis without complication K51.80 and Other chest pain R07.89 [place] [address] [address] 6766 May, [facility] [id number] [place] [address] 76205 -9506 May, Left leg swelling M79.89 [facility] [place] [address] [address] 9336 Apr, Pain in right shoulder M25.511 [facility] [place] [id number] [place] [address] 41365- 6423 Apr, Pain in right shoulder M25.511 [facility] [place] [id number] [place] [address] 26551- 2106 Mar, [facility] [place] [id number] [place] [address] 09443- 7486 Mar, Pain in right shoulder M25.511 [facility] [place] [id number] [place] [address] 23008- 2406 Mar, [facility] [place] [id number] [place] [address] 43539- 1464 Mar, [facility] [place] [id number] [place] [address] 59302- 3856 Feb, Pain in right shoulder M25.511 [facility] [place] [id number] [address] 9516 Jan, Pain in right shoulder M25.511 [facility] [place] [id number] [address] 2546 Jan, [facility] [place] [address] [address]- 4846 Dec, Pain in right shoulder M25.511 [facility] [place] [address] [address] 2546 Nov, Pain in right shoulder M25.511 [facility] [place] [id number] [place] [address] 94405- 0429 Nov, Pain in right shoulder M25.511 [facility] [place] [address] [address]- 9666 October, Pain in right shoulder M25.511 [facility] [place] [id number] [address]- 1706 Sep, Pain in right shoulder M25.511 [facility] [place] [id number] [place] [address] 05895- 2642 Aug, Pain in right shoulder M25.511 [facility] [place] [id number] [place] [address] 72463- 6409 Jul, Pain in right shoulder M25.511 [facility] [place] [id number] [place] [address] 124425- 3053 Jul, Pain in left shoulder M25.512 [facility] [place] [id number] [place] [address] 20872- 4791 Jul, Other chronic pain G89.29 [facility] [place] [id number] [address]- 9740 Jul, Pain in right shoulder M25.511 ; Other chronic pain G89.29 ; Pain in left shoulder M25.512 and Gastroesophageal reflux disease with esophagitis K21.0 [facility] [place] [address] [address]- 6891 Jun, [facility] [place] [address] [address]- 5540 May, [facility] [place] [address]692 May, [facility] [place] [id number] [place] [address] 250603- 0046 15 Apr, 2016 [facility] [place] [address] 1496 Mar, [facility] [place] [id number] [place] [address] 08850- 4541 22 Feb, 2016 [facility] [place] [id number] [place] [address] 07689- 1497 13 Feb, 2016 [facility] [place] [id number] [place] [address] 48514- 9317 12 Feb, 2016 [facility] [place] [id number] [place] [address] 16567- 9445 06 Feb, 2016 [facility] [place] [address] 99155- 1708 Jan, [facility] [place] [address] 85741- 5406 Dec, Pain in left shoulder M25.512 [facility] [place] [id number] [place] [address] 37767- 2534 Dec, Gastroesophageal reflux disease, esophagitis presence not specified K21.9 [facility] [place] [address] 48946- 4116 Nov, Pain in left shoulder M25.512 [facility] [place] [address] 96801- 7005 October, Pain in left shoulder M25.512 [facility] [place] [id number] [place] [address] 68065- 7415 Sep, Shoulder pain, left M25.512 [facility] [place] [id number] [place] [address] 36060- 7677 Aug, Pain in right shoulder M25.511 and Other chronic pain G89.29 [facility] [place] [id number] [place] [address] 98122- 6598 07 Aug, 2015 Shoulder pain, right M25.511 and GERD (gastroesophageal reflux disease) K21.9 [facility] [place] [id number] [place] [address] 79080- 6950 08 Nov, 2014 [facility] [place] [address] 98514- 1400 14 Sep, 2014 [facility] [place] [facility] [address] [id number] [place] [address]- 6449 13 Sep, 2014 [facility] [place] [facility] [address] [id number] [place] [address]- 6439 Jul, 2014 [facility] [place] [facility] [address] [id number] [place] [address]- 8843 Jul, 2014 [facility] [place] [facility] [address] [id number] [place] [address]- 9910 Jul, 2014 [facility] [place] [facility] [address] [id number] [place] [address]- 7340 Jul, 2014 [facility] [place] [facility] [address] [id number] [place] [address]- 7724 Jul, [facility] [place] [facility] [address] [id number] [place] [address]- 4142 Jul, [facility] [place] [facility] [address] [id number] [place] [address]- 8719 Jun, [facility] [place] [facility] [address] [id number] [place] [address]- 5545 Jun, [facility] [place] [facility] [address] [facility] [id number] [place] [address]- 8179 Apr, [facility] [place] [facility] [address] [id number] [place] [address]- 6056 Apr, [facility] [place] [facility] [address] [id number] [address]- 3027 Apr, [facility] [place] [facility] [address] [id number] [place] [address]- 0174 Feb, [facility] [place] [facility] [address] [id number] [place] [address]- 4939 Feb, [facility] [place] [facility] [address] [id number] [address]- 9301 Feb, [facility] [place] [facility] [address] [id number] [place] [address]- 2590 Feb, [facility] [place] [facility] [address] [id number] [place] [address]- 9447 Aug, [facility] [place] [facility] [address] [id number] [place] [address]- 5885 Aug, [facility] [place] [facility] [address] [id number] [place] [address]- 0789 Mar, [facility] [place] [facility] [address] [id number] [place] [address]- 1389 Mar, [facility] [place] [facility] [address] [id number] [place] [address]- 4718 Mar, [facility] [place] [facility] [address] [id number] [place] [address]- 2000 Mar, [facility] [place] [facility] [address] [id number] [place] [address]- 6683 Feb, [facility] [place] [facility] [address] [id number] [place] [address]- 7521 Feb, [facility] [place] [facility] [address] [id number] [place] [address]- 4722 Feb, [facility] [place] [facility] [address] [id number] [place] [address]- 9847 30 Jan, 2013 [facility] [place] [facility] [address] [id number] [place] [address]- 9835 Jan, [facility] [place] [facility] [address] [id number] [place] [address]- 1710 Dec, [facility] [place] [facility] [address] [id number] [place] [address]- 7490 15 Dec, 2012 [facility] [place] [facility] [address] [id number] [place] [address]- 2286 Nov, [facility] [place] [facility] [address] [id number] [address]- 8586 14 Nov, 2012 [facility] [place] [id number] [address]- 3726 Jan, [facility] [place] [address] [address]- 2546 Jan, [facility] [place] [address] [address]- 2546 Aug, [facility] [place] [address] [address]- 2546 Jun, [facility] [place] [address] [address] 2546 Jun, [facility] [place] [address] [address]- 9676 Apr, [facility] [place] [id number] [address]- 0016 17 Feb, 2010 IMMUNIZATIONS No Known Immunizations SOCIAL HISTORY Never Assessed REASON FOR VISIT lab order PLAN OF CARE VITAL SIGNS MEDICATIONS Unknown Medications RESULTS No Results PROCEDURES No Known procedures INSTRUCTIONS MEDICATIONS ADMINISTERED No Known Medications MEDICAL (GENERAL) HISTORY Type Description Date Medical History colitis Medical History right shoulder pain Surgical History Appendectomy Surgical History Abscess drained and removed Hospitalization History surgery Hospitalization History dehydration Hospitalization History chest pain, pancytopenia, slenomegaly-[facility] 10/25/17
--- OUTSIDE RECORDS SUMMARY | 2018-06-13 15:52 | XMS REPORT ---
Author Author AMY HALEY Organization [facility] Address [address] [place] [address] Care Team Providers Care Supervisor Public Health Nursing Name Role Phone AMY HALEY Unavailable PROBLEMS Type Condition ICD9-CM Code VAU74-BA Code Onset Dates Condition Status SNOMED Code Problem Gastroesophageal reflux disease with esophagitis K21.0 Active 771828014 Problem GERD with esophagitis K21.0 Active 680003776 Problem Other ulcerative colitis without complication K51.80 Active 41519314 Problem Other chronic pain G89.29 Active 68538527 Problem Pancytopenia D61.818 Active 002378005 Problem Other chronic pain G89.29 Active 29247170 Problem Morbid (severe) obesity due to excess calories E66.01 Active 23431766457289 Problem Essential hypertension I10 Active 52327413 Problem Body mass index (BMI) of 40.0-44.9 in adult Z68.41 Active 947655995 Problem Body mass index (BMI) of 45.0-49.9 in adult Z68.42 Active 288651511 ALLERGIES No Information ENCOUNTERS Encounter Location Date Diagnosis [facility] [id number] [place] [address] 57991- 8620 October, [facility] [id number] [place] [address] 20494- 4604 October, [facility] [id number] [place] [address] 90883- 2661 October, [facility] [id number] [place] [address] 51224- 2940 October, [facility] [id number] [place] [address] 76833- 1176 October, Pancytopenia D61.818 [facility] [id number] [place] [address] 79748- 0705 Sep, Other chronic pain G89.29 ; Pain in left knee M25.562 ; Pain in right knee M25.561 and Abdominal pain, left lower quadrant R10.32 [facility] [id number] [place] [address] 47063- 0681 Sep, Edema of left lower extremity R60.0 ; Essential hypertension I10 ; Morbid (severe) obesity due to excess calories E66.01 ; Body mass index (BMI) of 40.0-44.9 in adult Z68.41 and Hiatal hernia K44.9 [facility] [id number] [place] [address] 73059- 0829 Aug, [facility] [address] 52616- 0740 Aug, [facility] [id number] [place] [address] 75721- 8391 Jul, Pain in right shoulder M25.511 [facility] [id number] [place] [address] 27172- 4227 Jul, [facility] [id number] [place] [address] 51406 -7243 02 Jul, 2017 Localized edema R60.0 and BMI 40.0-44.9, adult Z68.41 [facility] [id number] [place] [address] 64641- 7709 Jul, [facility] [address] 90433- 7483 Jun, Edema of left lower extremity R60.0 ; Essential hypertension I10 ; Family history of coronary artery disease Z82.49 ; Morbid ( severe) obesity due to excess calories E66.01 and Body mass index (BMI) of 45.0- 49.9 in adult Z68.42 [facility] [id number] [place] [address] 14995- 0703 Jun, Other chronic pain G89.29 [facility] [id number] [place] [address] 79938- 1388 Jun, Pain in right shoulder M25.511 [facility] [id number] [place] [address] 11313- 5160 Jun, Other ulcerative colitis without complication K51.80 [facility] [id number] [place] [address] 15617 -3861 May, [facility] [id number] [place] [address] 81449- 0751 May, GERD with esophagitis K21.0 ; Other ulcerative colitis without complication K51.80 and Other chest pain R07.89 [facility] [id number] [place] [address] 72762- 4944 May, [facility] [id number] [place] [address] 81521 -4363 May, Left leg swelling M79.89 [facility] [id number] [place] [address] 99670- 5092 Apr, Pain in right shoulder M25.511 [facility] [id number] [place] [address] 39672- 1266 Apr, Pain in right shoulder M25.511 [facility] [id number] [place] [address] 79602- 8590 Mar, [facility] [id number] [place] [address] 33332- 3251 Mar, Pain in right shoulder M25.511 [facility] [id number] [place] [address] 82374- 3260 Mar, [facility] [id number] [place] [address] 22835- 0851 Mar, [facility] [id number] [place] [address] 92818- 1855 Feb, Pain in right shoulder M25.511 [facility] [address] [address]- 8336 Jan, Pain in right shoulder M25.511 [facility] [id number] [place] [address] 54860- 6266 Jan, [facility] [id number] [place] [address] 37348- 7915 Dec, Pain in right shoulder M25.511 [facility] [id number] [place] [address] 28048- 7945 Nov, Pain in right shoulder M25.511 [facility] [id number] [place] [address] 57886- 1986 Nov, Pain in right shoulder M25.511 [facility] [id number] [place] [address] 86381- 6636 October, Pain in right shoulder M25.511 [facility] [id number] [place] [address] 98422- 4760 Sep, Pain in right shoulder M25.511 [facility] [id number] [place] [address] 65779- 2334 Aug, Pain in right shoulder M25.511 [facility] [id number] [place] [address] 17728- 5789 Jul, Pain in right shoulder M25.511 [facility] [id number] [place] [address] 56805- 2134 Jul, Pain in left shoulder M25.512 [facility] [address] [place] [address] 05841- 0108 Jul, Other chronic pain G89.29 [facility] [id number] [place] [address] 42809- 0123 Jul, Pain in right shoulder M25.511 ; Other chronic pain G89.29 ; Pain in left shoulder M25.512 and Gastroesophageal reflux disease with esophagitis K21.0 [facility] [address] [address] 6047 Jun, [facility] [address] [address] May, [facility] [address] [facility] [id number] 2918 May, [facility] [id number] [place] [address] 45548- 0662 Apr, [facility] [address] [facility] [id number], [place] [address]- 9575 Mar, [facility] [id number] [place] [address] 22283- 7585 22 Feb, 2016 [facility] [id number] [place] [address] 27252- 6478 Feb, [facility] [id number] [place] [address] 45423- 1988 Feb, [facility] [address] [address] 4601 Feb, [facility] [address], [place] [address]- 7258 Jan, [facility] [address] [address]- 4986 Dec, Pain in left shoulder M25.512 [facility] [address], [place] [address]- 2381 Dec, Gastroesophageal reflux disease, esophagitis presence not specified K21.9 [facility] [address] [address]- 7495 Nov, Pain in left shoulder M25.512 [facility] [address] [address]- 0161 October, Pain in left shoulder M25.512 [facility] [address] [address]- 7602 Sep, Shoulder pain, left M25.512 [facility] [address] [facility] [id number] [place] [address] 75367- 7379 29 Aug, 2015 Pain in right shoulder M25.511 and Other chronic pain G89.29 [facility] [id number] [place] [address] 53311- 7449 07 Aug, 2015 Shoulder pain, right M25.511 and GERD (gastroesophageal reflux disease) K21.9 [facility] [id number] [place] [address] 23764- 2506 08 Nov, 2014 [facility] [id number] [place] [address] 00011- 9381 Sep, [facility] [id number] [place] [address] 32310- 2716 Sep, [facility] [id number] [place] [address] 09764- 5713 Jul, [facility] [id number] [place] [address] 90078- 1814 Jul, [facility] [id number] [place] [address] 26594- 4568 Jul, [facility] [address], [place] [address]- 4694 Jul, [facility] [address], [place] [address]- 4178 Jul, [facility] [address], [place] [address]- 8070 Jul, [facility] [id number] [place] [address] 93747- 9214 Jun, [facility] [address], [place] [address]- 7374 Jun, [facility] [id number] [place] [address] 74367- 9949 Apr, [facility] [place] [facility] [address] [id number] [place] [address]- 9723 Apr, [facility] [place] [facility] [address] [id number] [place] [address]- 7347 Apr, [facility] [place] [facility] [address] [id number] [place] [address]- 8519 Feb, [facility] [place] [facility] [address] [id number] [place] [address]- 2185 Feb, [facility] [place] [facility] [address] [id number] [place] [address]- 6672 Feb, [facility] [place] [facility] [address] [id number] [place] [address]- 7061 Feb, [facility] [place] [facility] [address] [id number] [place] [address]- 5628 Aug, [facility] [place] [facility] [address] [id number] [place] [address]- 6559 Aug, [facility] [place] [facility] [address] [id number] [place] [address]- 1718 Mar, [facility] [place] [facility] [address] [id number] [place] [address]- 6129 Mar, [facility] [place] [facility] [address] [id number], [place] [address]- 8450 16 Mar, 2013 [facility] [place] [facility] [address] [id number], [place] [address]- 9233 16 Mar, 2013 [facility] [place] [facility] [address] [id number] [place] [address]- 8827 09 Feb, 2013 [facility] [place] [facility] [address] [id number] [place] [address]- 3282 06 Feb, 2012 [facility] [place] [facility] [address] [id number] [place] [address]- 2049 03 Feb, 2013 [facility] [place] [facility] [address], [place] [address]- 6696 Jan, [facility] [address] [facility] [id number], [place] [address]- 8459 Jan, [facility] [address] [facility] [id number], [place] [address]- 8536 Dec, [facility] [address] [address]- 0233 Dec, [facility] [address] [facility] [id number] [address]- 4142 Nov, [facility] [address], [place] [address]- 3442 Nov, [facility] [address], [place] [address]- 3356 Jan, [facility] [address] [address]- 6650 Jan, [facility] [address], [place] [address]- 8648 Aug, [facility] [address], [place] [address]- 3961 Jun, [facility] [id number] [address]- 9801 Jun, [facility] [id number], [place] [address]- 0936 Apr, [facility] [id number], [place] [address]- 0596 Feb, IMMUNIZATIONS No Known Immunizations SOCIAL HISTORY [...] History dehydration Hospitalization History chest pain, pancytopenia, slenomegaly-[facility] 10/25/17
--- OUTSIDE RECORDS SUMMARY | 2018-06-13 15:52 | XMS REPORT ---
Author Author ANA FELIZ 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 Name Role Phone TRAY ANA Unavailable PROBLEMS Type Condition ICD9-CM Code [id number] Code Onset Dates Condition Status SNOMED Code Problem GERD with esophagitis K21.0 Active 027706019 Problem Morbid (severe) obesity due to excess calories E66.01 Active 86672016118392 Problem Essential hypertension I10 Active 32156291 Problem Other chronic pain G89.29 Active 84743133 Problem Gastroesophageal reflux disease with esophagitis K21.0 Active 651568826 Problem Other ulcerative colitis without complication K51.80 Active 19782112 Problem Pancytopenia D61.818 Active 123021608 Problem Temporary low platelet count D69.6 Active 394858613 Problem Body mass index (BMI) of 40.0-44.9 in adult Z68.41 Active 817089336 Problem Body mass index (BMI) of 45.0-49.9 in adult Z68.42 Active 418658236 Problem Neutropenia, unspecified type D70.9 Active 172564133 Problem Other chronic pain G89.29 Active 91002039 ALLERGIES No Information ENCOUNTERS Encounter Location Date Diagnosis [facility] [id number] [address] Jan, [facility] [id number] [address] Nov, Other chronic pain G89.29 [facility] [id number] [address] Nov, [facility] [id number] [address] Nov, [facility] [id number] [place] [address] 10348- 4177 October, Other chronic pain G89.29 ; Pain in right knee M25.561 ; Pain in left knee M25.562 and Abdominal pain, left lower quadrant R10.32 [facility] [id number] [place] [address] 71763- 2149 October, [facility] [address] [address] October, Splenomegaly R16.1 ; Neutropenia, unspecified type D70.9 and Temporary low platelet count D69.6 [facility] [address] [address] October, [facility] [address] [address] October, Pancytopenia D61.818 [address] [address] October, [facility] [id number] [place] [address]9024- 7727 October, [address] [address] October, Pancytopenia D61.818 [facility] [address] [address] Sep, Other chronic pain G89.29 ; Pain in left knee M25.562 ; Pain in right knee M25.561 and Abdominal pain, left lower quadrant R10.32 [address] [id number] [place] [address] 62283- 5534 Sep, Edema of left lower extremity R60.0 ; Essential hypertension I10 ; Morbid (severe) obesity due to excess calories E66.01 ; Body mass index (BMI) of 40.0-44.9 in adult Z68.41 and Hiatal hernia K44.9 [facility] [address] [address] Aug, [place] [id number] [place] [address] 27776- 1306 Aug, [place] [id number] [place] [address] 85856- 7076 Jul, Pain in right shoulder M25.511 [address] [place] [id number] [place] [address] 58877- 0425 Jul, [facility] [id number] [place] [address]93 -2842 Jul, Localized edema R60.0 and BMI 40.0-44.9, adult Z68.41 [address] [id number] [place] [address] 01819- 6598 Jul, [address] [place] [address] Jun, Edema of left lower extremity R60.0 ; Essential hypertension I10 ; Family history of coronary artery disease Z82.49 ; Morbid ( severe) obesity due to excess calories E66.01 and Body mass index (BMI) of 45.0- 49.9 in adult Z68.42 [address] [id number] [place] [address] 50374- 4120 Jun, Other chronic pain G89.29 [place] [id number] [place] [address] 10685- 6066 Jun, Pain in right shoulder M25.511 [place] [id number] [place] [address] 38420- 2283 Jun, Other ulcerative colitis without complication K51.80 [facility] [id number] [place] [address] 48127 -3811 May, [place] [id number] [place] [address] 06195- 5147 May, GERD with esophagitis K21.0 ; Other ulcerative colitis without complication K51.80 and Other chest pain R07.89 [facility] [id number] [place] [address] 20893- 4826 May, [facility] [id number] [place] [address] 65904 -8006 May, Left leg swelling M79.89 [facility] [id number] [place] [address] 18249- 8516 Apr, Pain in right shoulder M25.511 [facility] [id number] [place] [address] 95809- 3246 Apr, Pain in right shoulder M25.511 [facility] [id number] [place] [address] 63724- 1606 Mar, [facility] [id number] [place] [address] 14083- 9666 Mar, Pain in right shoulder M25.511 [facility] [id number] [place] [address] 13043- 6378 Mar, [facility] [id number] [place] [address] 67220- 6944 Mar, [facility] [id number] [place] [address] 87807- 7289 Feb, Pain in right shoulder M25.511 [facility] [id number] [place] [address] 37821- 8236 Jan, Pain in right shoulder M25.511 [facility] [id number] [place] [address] 10381- 2994 Jan, [facility] [id number] [place] [address] 93831- 5856 Dec, Pain in right shoulder M25.511 [facility] [id number] [place] [address] 32334- 1347 Nov, Pain in right shoulder M25.511 [facility] [address] [place] [address]- [address] 05 Nov, 2016 Pain in right shoulder M25.511 [facility] [id number] [place] [address] 53903- 8725 October, Pain in right shoulder M25.511 [facility] [id number] [place] [address] 66202- 8034 Sep, Pain in right shoulder M25.511 [facility] [id number] [place] [address] 26111- 5699 Aug, Pain in right shoulder M25.511 [facility] [id number] [place] [address] 82285- 1121 Jul, Pain in right shoulder M25.511 [facility] [id number] [place] [address] 13660- 3611 Jul, Pain in left shoulder M25.512 [facility] [id number] [place] [address] 40440- 5319 Jul, Other chronic pain G89.29 [facility] [id number] [place] [address] 26312- 5788 Jul, Pain in right shoulder M25.511 ; Other chronic pain G89.29 ; Pain in left shoulder M25.512 and Gastroesophageal reflux disease with esophagitis K21.0 [facility] [id number] [place] [address] 60843- 3217 Jun, [facility] [id number] [place] [address] 14647- 4399 May, [facility] [id number] [place] [address] 47818- 1792 May, [facility] [id number] [place] [address] 02941- 1001 Apr, [facility] [id number] [place] [address] 37586- 1930 Mar, [facility] [address] [address]- 96[address] 22 Feb, 2016 [facility] [id number] [place] [address] 30979- 9579 13 Feb, 2016 [facility] [id number] [place] [address] 17711- 0507 Feb, [facility] [id number] [place] [address] 36013- 6654 06 Feb, 2016 [facility] [id number] [place] [address] 20944- 7710 Jan, [facility] [id number] [place] [address] 01066- 6189 Dec, Pain in left shoulder M25.512 [place] [id number] [place] [address] 13913- 4222 Dec, Gastroesophageal reflux disease, esophagitis presence not specified K21.9 [facility] [id number] [place] [address] 71591- 5897 Nov, Pain in left shoulder M25.512 [facility] [id number] [place] [address] 38147- 4961 October, Pain in left shoulder M25.512 [place] [id number] [place] [address] 55370- 5413 Sep, Shoulder pain, left M25.512 [facility] [id number] [place] [address] 28472- 3648 Aug, Pain in right shoulder M25.511 and Other chronic pain G89.29 [facility] [id number] [place] [address] 64789- 5213 07 Aug, 2015 Shoulder pain, right M25.511 and GERD (gastroesophageal reflux disease) K21.9 [facility] [id number] [place] [address] 08826- 2385 08 Nov, 2014 [facility] [address] [facility] [id number] [place] [address]- 1407 14 Sep, 2014 [facility] [place] [facility] [address] [id number] [place] [address]- 6056 13 Sep, 2014 [facility] [place] [facility] [address] [id number] [place] [address]- 3298 Jul, 2014 [facility] [place] [facility] [address] [id number] [place] [address]- 5092 Jul, 2014 [facility] [place] [facility] [address] [id number] [place] [address]- 1285 Jul, 2014 [facility] [place] [facility] [address] [id number] [place] [address]- 8048 Jul, 2014 [facility] [place] [facility] [address] [id number] [place] [address]- 8013 Jul, [facility] [place] [facility] [address] [id number] [place] [address]- 8344 Jul, [facility] [place] [facility] [address] [id number] [place] [address]- 1523 Jun, [facility] [place] [facility] [address] [facility] [id number] [place] [address]- 3885 Jun, [facility] [place] [facility] [address] [facility] [id number] [place] [address]- 5625 Apr, [facility] [place] [facility] [address] [id number] [place] [address]- 9432 Apr, [facility] [place] [facility] [address] [id number] [place] [address]- 3108 Apr, [facility] [place] [facility] [address] [id number] [place] [address]- 6425 Feb, [facility] [place] [facility] [address] [id number] [place] [address]- 3520 Feb, [facility] [place] [facility] [address] [id number] [place] [address]- 2546 Feb, [facility] [place] [facility] [address] [id number] [place] [address]- 0409 Feb, [facility] [place] [facility] [address] [id number] [place] [address]- 9446 Aug, [facility] [place] [facility] [address] [id number] [place] [address]- 5915 Aug, [facility] [place] [facility] [address] [id number] [place] 2186 Mar, [facility] [place] [facility] [address] [id number] [place] 8973 Mar, [facility] [place] [facility] [address] [id number] [place] 7832 Mar, [facility] [place] [facility] [address] [id number] [place] 8565 Mar, [facility] [place] [facility] [address] [id number] [place] [address]- 9752 Feb, [facility] [place] [facility] [address] [id number] [place] [address]- 3198 06 Feb, 2013 [facility] [place] [facility] [address] [id number] [place] [address]- 2635 Feb, [facility] [place] [facility] [address] [id number] [place] [address]- 6862 Jan, [facility] [place] [facility] [address] [id number] [place] [address]- 4215 Jan, [facility] [place] [facility] [address] [id number] [place] [address]- 1379 Dec, [facility] [place] [facility] [address] [id number] [place] [address]- 9265 Dec, [facility] [place] [facility] [address] [id number] [place] 7880 Nov, [facility] [place] [facility] [id number] [address]- 2546 14 Nov, 2012 [facility] [id number] [address]- 6926 Jan, [facility] [address] [address]- 2546 Jan, [facility] [address] [address]- 6266 Aug, [facility] [address] [address]- 2546 Jun, [facility] [address] [address]- 2396 Jun, [facility] [address] [address]- 1316 Apr, [facility] [address] [address]- 8606 17 Feb, 2010 IMMUNIZATIONS No Known Immunizations SOCIAL HISTORY Never Assessed REASON FOR VISIT Critical Lab Result PLAN OF CARE VITAL SIGNS MEDICATIONS Unknown Medications RESULTS No Results PROCEDURES No Known procedures INSTRUCTIONS MEDICATIONS ADMINISTERED No Known Medications MEDICAL (GENERAL) HISTORY Type Description Date Medical History colitis Medical History right shoulder pain Surgical History Appendectomy Surgical History Abscess drained and removed Hospitalization History surgery Hospitalization History dehydration Hospitalization History chest pain, pancytopenia, slenomegaly-[facility] 10/25/17
--- OUTSIDE RECORDS SUMMARY | 2018-06-13 15:53 | XMS REPORT ---
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 Name Role Phone AMY HALEY Unavailable PROBLEMS Type Condition ICD9-CM Code QLT63-MX Code Onset Dates Condition Status SNOMED Code Problem GERD with esophagitis K21.0 Active 931267042 Problem Morbid (severe) obesity due to excess calories E66.01 Active 19649091648862 Problem Essential hypertension I10 Active 05932083 Problem Other chronic pain G89.29 Active 93001608 Problem Gastroesophageal reflux disease with esophagitis K21.0 Active 941952292 Problem Other ulcerative colitis without complication K51.80 Active 40370299 Problem Pancytopenia D61.818 Active 601852963 Problem Temporary low platelet count D69.6 Active 139089578 Problem Body mass index (BMI) of 40.0-44.9 in adult Z68.41 Active 362653581 Problem Body mass index (BMI) of 45.0-49.9 in adult Z68.42 Active 834597318 Problem Neutropenia, unspecified type D70.9 Active 852408268 Problem Other chronic pain G89.29 Active 56130066 ALLERGIES Substance Reaction Event Type Date Status Morphine Sulfate nausea and vomiting Drug Allergy May, Active ENCOUNTERS Encounter Location Date Diagnosis [facility] [id number] [address] Jan, [facility] [id number], [place] [address] Nov, Other chronic pain G89.29 [facility] [id number], [place] [address] Nov, [facility] [id number], [place] [address] Nov, [facility] [id number] [place] [address] 78268- 8472 October, Other chronic pain G89.29 ; Pain in right knee M25.561 ; Pain in left knee M25.562 and Abdominal pain, left lower quadrant R10.32 [facility] [id number] [place] [address] 77628- 8266 October, [facility] [id number] [place] [address] 11162- 0465 October, Splenomegaly R16.1 ; Neutropenia, unspecified type D70.9 and Temporary low platelet count D69.6 [facility] [id number] [place] [address] 57868 -3818 October, [facility] [id number] [place] [address] 36113- 6536 October, Pancytopenia D61.818 [place] [id number] [place] [address] 01420- 0133 October, [facility] [id number] [place] [address] 88581- 5219 October, [facility] [id number] [place] [address] 25792- 4418 October, Pancytopenia D61.818 [facility] [id number] [place] [address] 19142- 6869 Sep, Other chronic pain G89.29 ; Pain in left knee M25.562 ; Pain in right knee M25.561 and Abdominal pain, left lower quadrant R10.32 [place] [id number] [place] [address] 39733- 4848 Sep, Edema of left lower extremity R60.0 ; Essential hypertension I10 ; Morbid (severe) obesity due to excess calories E66.01 ; Body mass index (BMI) of 40.0-44.9 in adult Z68.41 and Hiatal hernia K44.9 [facility] [id number] [place] [address] 54851- 3321 Aug, [place] [address] [place] [address] 43970- 0833 Aug, [place] [id number] [place] [address] 17837- 1520 Jul, Pain in right shoulder M25.511 [place] [id number] [place] [address] 81614- 4068 Jul, [facility] [place] [id number] [place] [address] 20182 -8920 Jul, Localized edema R60.0 and BMI 40.0-44.9, adult Z68.41 [place] [id number] [place] [address] 20409- 6711 Jul, [place] [id number] [place] [address] 66326- 3931 Jun, Edema of left lower extremity R60.0 ; Essential hypertension I10 ; Family history of coronary artery disease Z82.49 ; Morbid ( severe) obesity due to excess calories E66.01 and Body mass index (BMI) of 45.0- 49.9 in adult Z68.42 [place] [address] [place] [address] 30906- 2334 Jun, Other chronic pain G89.29 [place] [id number] [place] [address] 59547- 2638 Jun, Pain in right shoulder M25.511 [place] [id number] [place] [address] 49368- 8623 Jun, Other ulcerative colitis without complication K51.80 [facility] [id number] [place] [address] 04963 -1039 May, [place] [id number] [place] [address] 91723- 9742 May, GERD with esophagitis K21.0 ; Other ulcerative colitis without complication K51.80 and Other chest pain R07.89 [facility] [address], [place] [address] May, [facility] [id number] [place] [address] 56400 -8826 May, Left leg swelling M79.89 [facility] [id number] [place] [address] 36532- 7976 Apr, Pain in right shoulder M25.511 [facility] [address] [address] 6[address] Apr, Pain in right shoulder M25.511 [facility] [id number] [place] [address] 17113- 2696 Mar, [facility] [id number] [place] [address] 59325- 1546 Mar, Pain in right shoulder M25.511 [facility] [id number] [place] [address] 36794- 5870 Mar, [facility] [id number] [place] [address] 79956- 2046 Mar, [facility] [id number] [place] [address] 36047- 7046 Feb, Pain in right shoulder M25.511 [facility] [address] [address] 4898 Jan, Pain in right shoulder M25.511 [facility] [address], [place] [address] 2546 Jan, [facility] [id number] [place] [address] 68830- 4906 Dec, Pain in right shoulder M25.511 [facility] [address], [place] [address] 9786 Nov, Pain in right shoulder M25.511 [facility] [address] [address] 7571 Nov, Pain in right shoulder M25.511 [facility] [id number] [place] [address] 33933- 0610 October, Pain in right shoulder M25.511 [facility] [id number] [place] [address] 81322- 7280 Sep, Pain in right shoulder M25.511 [facility] [id number] [place] [address] 98797- 2795 Aug, Pain in right shoulder M25.511 [facility] [address] [address]69- 0776 Jul, Pain in right shoulder M25.511 [facility] [id number] [place] [address] 44264- 0505 Jul, Pain in left shoulder M25.512 [facility] [id number] [place] [address] 36697- 6242 Jul, Other chronic pain G89.29 [facility] [id number] [place] [address] 76496- 5676 09 Jul, 2016 Pain in right shoulder M25.511 ; Other chronic pain G89.29 ; Pain in left shoulder M25.512 and Gastroesophageal reflux disease with esophagitis K21.0 [facility] [id number] [place] [address] 11210- 4827 Jun, [facility] [id number] [place] [address] 57339- 7896 May, [facility] [id number] [place] [address] 33449- 1086 May, [facility] [id number] [place] [address] 81308- 4602 15 Apr, 2016 [facility] [id number] [place] [address] 39347- 4271 Mar, [facility] [address], [place] [address]- 8267 22 Feb, 2016 [facility] [id number] [place] [address] 02413- 5009 13 Feb, 2016 [facility] [id number] [place] [address] 90709- 7600 12 Feb, 2016 [facility] [id number] [place] [address] 08647- 5546 06 Feb, 2016 [facility] [id number] [place] [address] 92248- 7100 Jan, [facility] [id number] [place] [address] 58586- 1693 Dec, Pain in left shoulder M25.512 [place] [id number] [place] [address] 34454- 8329 Dec, Gastroesophageal reflux disease, esophagitis presence not specified K21.9 [facility] [id number] [place] [address] 66740- 5360 Nov, Pain in left shoulder M25.512 [facility] [id number] [place] [address] 51978- 9590 October, Pain in left shoulder M25.512 [facility] [id number] [place] [address] 18759- 6968 Sep, Shoulder pain, left M25.512 [facility] [id number] [place] [address] 41211- 8165 Aug, Pain in right shoulder M25.511 and Other chronic pain G89.29 [facility] [id number] [place] [address] 32229- 3383 07 Aug, 2015 Shoulder pain, right M25.511 and GERD (gastroesophageal reflux disease) K21.9 [facility] [id number] [place] [address] 62057- 5690 08 Nov, 2014 [facility] [place] [facility] [address] [id number] [place] [address]- 5984 14 Sep, 2014 [facility] [place] [facility] [address] [id number] [place] [address]- 8265 13 Sep, 2014 [facility] [place] [facility] [address] [id number] [place] [address]- 6511 Jul, 2014 [facility] [place] [facility] [address] [id number] [place] [address]- 5443 Jul, 2014 [facility] [place] [facility] [address] [id number] [place] [address]- 2848 Jul, 2014 [facility] [place] [facility] [address] [id number] [place] [address]- 4965 Jul, 2014 [facility] [place] [facility] [address] [facility] [id number] [place] [address]- 0330 Jul, [facility] [place] [facility] [address] [id number] [place] [address]- 0222 Jul, [facility] [place] [facility] [address] [id number] [place] [address]- 7900 Jun, [facility] [place] [facility] [address] [facility] [id number], [place] [address]- 9082 Jun, [facility] [place] [facility] [address] [facility] [id number], [place] [address]- 5116 Apr, [facility] [place] [facility] [address] [id number], [place] [address]- 9544 Apr, [facility] [place] [facility] [address] [id number] [place] [address]- 1051 Apr, [facility] [place] [facility] [address] [id number], [place] [address]- 8732 Feb, [facility] [place] [facility] [address] [id number], [place] [address]- 6124 Feb, [facility] [place] [facility] [address] [id number], [place] [address]- 4792 Feb, [facility] [place] [facility] [address] [id number] [place] [address]- 4803 11 Feb, 2014 [facility] [place] [facility] [address] [id number] [place] [address]- 7872 Aug, [facility] [place] [facility] [address] [id number] [place] [address]- 0866 Aug, [facility] [place] [facility] [address] [id number] [place] [address]- 4260 Mar, [facility] [place] [facility] [address] [id number] [place] [address]- 0888 Mar, [facility] [place] [facility] [address] [id number] [place] [address]- 0268 Mar, [facility] [place] [facility] [address] [id number] [place] [address]- 0167 Mar, [facility] [place] [facility] [address] [id number] [place] [address]- 0197 Feb, [facility] [place] [facility] [address] [id number] [place] [address]- 5210 06 Feb, 2013 [facility] [place] [facility] [address] [id number] [place] [address]- 5519 Feb, [facility] [place] [facility] [address] [id number] [place] [address]- 3868 30 Jan, 2013 [facility] [place] [facility] [address] [id number] [place] [address]- 7427 Jan, [facility] [place] [facility] [address] [id number] [place] [address]- 6351 Dec, [facility] [place] [facility] [address] [id number] [place] [address]- 4421 Dec, [facility] [place] [facility] [address] [id number] [place] [address]- 9785 Nov, [facility] [place] [facility] [id number] [address]- 6316 14 Nov, 2012 [facility] [id number], [place] [address]- 1240 Jan, [facility] [address], [place] [address]- 0256 Jan, [facility] [address], [place] [address]- 6133 Aug, [facility] [address], [place] [address]- 0696 Jun, [facility] [address], [place] [address]- 7066 Jun, [facility] [address], [place] [address]- 9598 Apr, [facility] [address], [place] [address]- 1890 17 Feb, 2010 IMMUNIZATIONS No Known Immunizations SOCIAL HISTORY Never Assessed REASON FOR VISIT chronic pain managment, PT has pain on in left shoulder that travels down his arm as well as knot in his left abdominal area-Ahmet MCDONNELL PLAN OF CARE VITAL SIGNS Height 69 in 2017-06-18 Weight 280.5 lbs 2017-06-18 Temperature 98.5 degrees Fahrenheit 2017-06-18 Heart Rate 72 bpm 2017-06-18 Respiratory Rate 20 2017-06-18 BMI 41.42 kg/m2 2017-06-18 Blood pressure systolic 124 mmHg 2017-06-18 Blood pressure diastolic 82 mmHg 2017-06-18 MEDICATIONS Medication Instructions Dosage Frequency Start Date End Date Duration Status Protonix 40 mg 1 tablet 24h Not-Taking Pepcid 20 mg Orally Once a day 1 tablet at bedtime 24h May, 30 day(s) Active Dicyclomine HCl 20 mg Orally Four times a day 1 tablet 6h May, Sep, 30 day(s) Active Hydrocodone-Acetaminophen 5-325 MG Orally every 6 hrs- Must last 30 days 1 tablet as needed Mar, 28 days Active RESULTS No Results PROCEDURES Procedure Date Ordered Result Body Site NATRIURETIC PEPTIDE Jun 18, 2017 VENIPUNCT, ROUTINE* Jun 18, 2017 EKG, TRACING (IN-HOUSE) 2017-06-18 Normal CHEST X-RAY Jun 18, 2017 C-REACTIVE PROTEIN, HS Jun 18, 2017 COMPLETE CBC W/AUTO DIFF WBC Jun 18, 2017 ASSAY THYROID STIM HORMONE Jun 18, 2017 ELECTROCARDIOGRAM, TRACING Jun 18, 2017 COMPREHEN METABOLIC PANEL Jun 18, 2017 LIPID PANEL Jun 18, 2017 INSTRUCTIONS MEDICATIONS ADMINISTERED No Known Medications MEDICAL (GENERAL) HISTORY Type Description Date Medical History colitis Medical History right shoulder pain Surgical History Appendectomy Surgical History Abscess drained and removed Hospitalization History surgery Hospitalization History dehydration Hospitalization History chest pain, pancytopenia, slenomegaly-[facility] 10/25/17
--- OUTSIDE RECORDS SUMMARY | 2018-06-13 15:53 | XMS REPORT ---
Author Author ALEX SOLER [facility] Address [address] [place] [address] Care Team Providers Care Home Demonstrator Name Role Phone ALEX SOLER Unavailable PROBLEMS Type Condition ICD9-CM Code QXW65-YS Code Onset Dates Condition Status SNOMED Code Problem GERD with esophagitis K21.0 Active 083222606 Problem Morbid (severe) obesity due to excess calories E66.01 Active 02434747537196 Problem Essential hypertension I10 Active 76251353 Problem Other chronic pain G89.29 Active 81750656 Problem Gastroesophageal reflux disease with esophagitis K21.0 Active 887855196 Problem Other ulcerative colitis without complication K51.80 Active 10890852 Problem Pancytopenia D61.818 Active 514367711 Problem Temporary low platelet count D69.6 Active 955382730 Problem Body mass index (BMI) of 40.0-44.9 in adult Z68.41 Active 163083079 Problem Body mass index (BMI) of 45.0-49.9 in adult Z68.42 Active 401069045 Problem Neutropenia, unspecified type D70.9 Active 457719451 Problem Other chronic pain G89.29 Active 36528747 ALLERGIES Substance Reaction Event Type Date Status Morphine Sulfate nausea and vomiting Drug Allergy May, Active ENCOUNTERS Encounter Location Date Diagnosis [facility] [id number] [address] Jan, [facility] [id number] [address] October, Other chronic pain G89.29 ; Pain in right knee M25.561 ; Pain in left knee M25.562 and Abdominal pain, left lower quadrant R10.32 [facility] [address] [facility] [id number] [address] October, [facility] [id number] [place] [address]3050- [address] October, Splenomegaly R16.1 ; Neutropenia, unspecified type D70.9 and Temporary low platelet count D69.6 [facility] [id number] [place] [address]46 -[address] October, [facility] [id number] [place] [address] 82709- 0936 October, Pancytopenia D61.818 [facility] [id number] [place] [address] 21369- 0807 October, [place] [address] [address] October, [place] [id number] [place] [address] 63907- 3928 October, Pancytopenia D61.818 [place] [id number] [place] [address] 41996- 5004 Sep, Other chronic pain G89.29 ; Pain in left knee M25.562 ; Pain in right knee M25.561 and Abdominal pain, left lower quadrant R10.32 [place] [id number] [place] [address] 06514- 7244 Sep, Edema of left lower extremity R60.0 ; Essential hypertension I10 ; Morbid (severe) obesity due to excess calories E66.01 ; Body mass index (BMI) of 40.0-44.9 in adult Z68.41 and Hiatal hernia K44.9 [facility] [id number] [place] [address] 23207- 9758 Aug, [place] [address] [address]67- [address] Aug, [place] [id number] [place] [address] 41174- 9610 Jul, Pain in right shoulder M25.511 [place] [address] [place] [address] 05 Jul, 2017 [facility] [place] [id number] [place] [address] 10991 -8901 02 Jul, 2017 Localized edema R60.0 and BMI 40.0-44.9, adult Z68.41 [place] [address] [address]34- [address] 02 Jul, 2017 [place] [address] 47[address]- 58[address] Jun, Edema of left lower extremity R60.0 ; Essential hypertension I10 ; Family history of coronary artery disease Z82.49 ; Morbid ( severe) obesity due to excess calories E66.01 and Body mass index (BMI) of 45.0- 49.9 in adult Z68.42 [place] [address] 7[address]- 7405 16 Jun, 2017 Other chronic pain G89.29 [place] [address] 80078- 9724 15 Jun, 2017 Pain in right shoulder M25.511 [place] [address] [address]26- 2000 Jun, Other ulcerative colitis without complication K51.80 [facility] [place] [id number] [place] [address] 33831 -6083 May, [place] [address] 73912- 4816 May, GERD with esophagitis K21.0 ; Other ulcerative colitis without complication K51.80 and Other chest pain R07.89 [place] [address] 14707- 3844 May, [facility] [place] [id number] [place] [address] 04317 -5431 May, Left leg swelling M79.89 [place] [address] 58901- 0986 Apr, Pain in right shoulder M25.511 [facility] [address] [place] [address] 65864- 8696 Apr, Pain in right shoulder M25.511 [facility] [address] [facility] [id number] [address] Mar, [facility] [id number] [place] [address] 85078- 8916 Mar, Pain in right shoulder M25.511 [facility] [address] [place] [address] 80850- 9306 Mar, [facility] [id number] [place] [address] 13312- 2676 Mar, [facility] [id number] [place] [address] 20312- 8536 Feb, Pain in right shoulder M25.511 [facility] [id number] [address] Jan, Pain in right shoulder M25.511 [facility] [id number] [place] [address] 46868- 6186 Jan, [facility] [address] [place] [address] 96089- 1136 Dec, Pain in right shoulder M25.511 [facility] [address] [place] [address] 22056- 0746 Nov, Pain in right shoulder M25.511 [facility] [address] [address] 1636 Nov, Pain in right shoulder M25.511 [facility] [address] [place] [address] 46482 2546 October, Pain in right shoulder M25.511 [facility] [id number] [address] Sep, Pain in right shoulder M25.511 [facility] [address] [address]- 4[address] Aug, Pain in right shoulder M25.511 [facility] [id number] [place] [address] 94697- 6586 10 Jul, 2016 Pain in right shoulder M25.511 [facility] [id number] [place] [address] 27185- 4490 Jul, Pain in left shoulder M25.512 [facility] [address] [place] [address] 06401- 2686 Jul, Other chronic pain G89.29 [facility] [id number] [place] [address] 78737- 6313 09 Jul, 2016 Pain in right shoulder M25.511 ; Other chronic pain G89.29 ; Pain in left shoulder M25.512 and Gastroesophageal reflux disease with esophagitis K21.0 [facility] [address] [place] [address] 23312- 4215 Jun, [facility] [id number] [place] [address] 51129- 2973 May, [facility] [address] [address]- 06[address] May, [facility] [id number] [place] [address] 97093- 8919 15 Apr, 2016 [facility] [address] [address]- 1016 Mar, [facility] [id number] [place] [address] 57940- 1641 22 Feb, 2016 [facility] [id number] [place] [address] 04901- 6312 13 Feb, 2016 [facility] [address] [place] [address] 61379- 3032 12 Feb, 2016 [facility] [id number] [place] [address] 76055- 0207 Feb, [facility] [id number] [place] [address] 47566- 2466 Jan, [facility] [id number] [place] [address] 80465 2546 Dec, Pain in left shoulder M25.512 [facility] [address] 57663- 6859 Dec, Gastroesophageal reflux disease, esophagitis presence not specified K21.9 [facility] [id number] [place] [address] 60237- 8368 Nov, Pain in left shoulder M25.512 [facility] [id number] [place] [address] 80042- 8926 October, Pain in left shoulder M25.512 [facility] [id number] [place] [address] 58956- 7921 Sep, Shoulder pain, left M25.512 [facility] [id number] [place] [address] 22652- 7655 Aug, Pain in right shoulder M25.511 and Other chronic pain G89.29 [facility] [id number] [place] [address] 07929- 8343 Aug, Shoulder pain, right M25.511 and GERD (gastroesophageal reflux disease) K21.9 [facility] [id number] [place] [address] 03599- 4642 Nov, [facility] [id number] [place] [address] 83527- 2866 Sep, [facility] [id number] [place] [address] 63238- 7293 Sep, [facility] [id number] [place] [address] 62200- 9491 Jul, [facility] [place] [facility] [address] [id number] [place] [address]- 7825 Jul, 2014 [facility] [place] [facility] [address] [id number] [place] [address]- 9546 Jul, 2014 [facility] [place] [facility] [address] [id number] [place] [address]- 2458 Jul, 2014 [facility] [place] [facility] [address] [id number] [place] [address]- 2096 Jul, 2014 [facility] [place] [facility] [address] [id number] [place] [address]- 4578 Jul, [facility] [place] [facility] [address] [id number] [place] [address]- 1688 Jun, [facility] [place] [facility] [address] [id number] [place] [address]- 7463 Jun, [facility] [place] [facility] [address] [id number] [place] [address]- 6382 Apr, [facility] [place] [facility] [address] [id number] [place] [address]- 7500 Apr, [facility] [place] [facility] [address] [id number] [place] [address]- 4753 Apr, [facility] [place] [facility] [address] [id number] [place] [address]- 2547 Feb, [facility] [place] [facility] [address] [id number] [place] [address]- 1945 Feb, [facility] [place] [facility] [address] [id number] [place] [address]- 6932 Feb, [facility] [place] [facility] [address] [id number] [place] [address]- 6475 Feb, [facility] [place] [facility] [address] [id number] [place] [address]- 7934 Aug, [facility] [place] [facility] [address] [id number] [place] [address]- 9007 Aug, [facility] [place] [facility] [address] [id number] [place] [address]- 0560 Mar, [facility] [place] [facility] [address] [id number] [place] [address] Mar, [facility] [place] [facility] [address] [id number] [place] [address]- 8365 Mar, [facility] [place] [facility] [address] [id number] [place] [address]- 6710 Mar, [facility] [place] [facility] [address] [id number] [place] [address]- 4114 Feb, [facility] [place] [facility] [address] [id number] [place] [address]- 5498 Feb, [facility] [place] [facility] [address] [id number] [place] [address]- 2497 Feb, [facility] [place] [facility] [address] [id number] [place] [address]- 7747 30 Jan, 2013 [facility] [place] [facility] [address] [id number] [place] [address]- 8545 Jan, [facility] [place] [facility] [address] [id number] [place] [address]- 7646 Dec, [facility] [place] [facility] [address] [id number] [place] [address]- 7518 Dec, [facility] [place] [facility] [address] [id number] [place] [address]- 2665 Nov, [facility] [place] [facility] [address] [id number] [place] [address]- 7488 Nov, [facility] [place] [facility] [address] [id number] [place] [address]- 7166 Jan, [facility] [place] [facility] [address] [id number] [place] [address]- 9537 Jan, [facility] [place] [facility] [address] [facility] [id number] [place] [address]- 2546 Aug, [facility] [address] [facility] [id number] [address]- 0126 Jun, [facility] [address] [facility] [id number] [address]- 2546 Jun, [facility] [address] [facility] [id number] [address]- 2546 Apr, [facility] [address] [facility] [id number] [address]- 2546 Feb, IMMUNIZATIONS No Known Immunizations SOCIAL HISTORY Never Assessed REASON FOR VISIT Left calf swelling on/off x 2 years. Pt notices it when he wears long socks work boots. KBoleRN PLAN OF CARE Activity Details Follow Up prn Reason: VITAL SIGNS Height 69 in 2017-05-24 Weight 290.6 lbs 2017-05-24 Temperature 98.1 degrees Fahrenheit 2017-05-24 Heart Rate 80 bpm 2017-05-24 Respiratory Rate 20 2017-05-24 BMI 42.91 kg/m2 2017-05-24 Blood pressure systolic 132 mmHg 2017-05-24 Blood pressure diastolic 86 mmHg 2017-05-24 MEDICATIONS Medication Instructions Dosage Frequency Start Date End Date Duration Status Hydrocodone-Acetaminophen 5-325 MG Orally every 6 hrs- Must last 30 days 1 tablet as needed Mar, 28 days Active Protonix 40 mg 1 tablet 24h Not-Taking RESULTS Name Result Date Reference Range Ultrasound : Venous Doppler (DVT EVAL) 2017-05-24 PROCEDURES No Known procedures INSTRUCTIONS MEDICATIONS ADMINISTERED No Known Medications MEDICAL (GENERAL) HISTORY Type Description Date Medical History colitis Medical History right shoulder pain Surgical History Appendectomy Surgical History Abscess drained and removed Hospitalization History surgery Hospitalization History dehydration Hospitalization History chest pain, pancytopenia, slenomegaly-[facility] 10/25/17
--- OUTSIDE RECORDS SUMMARY | 2018-06-13 15:58 | XMS REPORT | Continuity of Care Document ---
Author Author Counts Include [facility] Address Unknown Phone Unavailable Allergies Active Description Code Type Severity Reaction Onset Reported/Identified Relationship to Patient Clinical Status Yes CHOLESTEROL PILL CHOLESTEROL PILL Mild "RED MAN SYNDRO 10/14/2008 Yes morphine Drug Allergy N/A N/A 03/07/2010 Yes morphine [id number] Drug Allergy Unknown SWEATS AND VOMI 07/06/2017 [...] BATEMAN, TAIWOKI Ot E915 09/30/2014 ARTEMIO MONTES PRECISION INSPECTOR Ot 692.6 DERMATITIS DUE TO PLANT 09/30/2014 ARTEMIO MONTES PRECISION INSPECTOR Ot 782.1 NONSPECIF SKIN ERUPT NEC 10/09/2014 [...] UNSP GASTRITIS GASTRODUODENITIS W/O ME 12/13/2015 JOHANNA ODTY MD Ot 535.60 DUODENITIS, WITHOUT MENTION OF [...] Ot K44.9 DIAPHRAGMATIC HERNIA WITHOUT OBSTRUCTION [facility]/16[facility] Ot K92.1 MELENA 07/16/2017 [facility] Ot Z68.39 BODY MASS INDEX (BMI) 39.0-39.9, ADULT 07/16/2017 [facility] Ot E66.9 OBESITY, UNSPECIFIED 07/16/2017 [facility] MARIAJOSE D Ot K21.9 GASTRO-ESOPHAGEAL REFLUX DISEASE WITHOUT 07/16/2017 [facility], MARIAJOSE D Ot K25.9 GASTRIC ULCER, UNSP ACUTE OR CHRONIC, 07/16/2017 [facility] MARIAJOSE D Ot K29.70 GASTRITIS, UNSPECIFIED, WITHOUT BLEEDING 07/16/2017 [facility] MARIAJOSE D Ot K44.9 DIAPHRAGMATIC HERNIA WITHOUT OBSTRUCTION 07/16/2017 [facility] MARIAJOSE D Ot K92.1 MELENA 07/16/2017 [facility] MARIAJOSE D Ot Z68.39 BODY MASS INDEX (BMI) 39.0-39.9, ADULT 08/04/2017 XOCHILT PANCHAL MD Ot R60.0 LOCALIZED EDEMA 10/18/2017 [facility] Ot K21.0 GASTRO-ESOPHAGEAL REFLUX DISEASE WITH ES 10/18/2017 [facility] Ot K76.0 FATTY (CHANGE OF) [...] Ot E000.8 OTHER EXTERNAL CAUSE STATUS 10/22/2017 JOHANNA DOTY MD, Ot E915 FB ENTERING OTH ORIFICE 10/22/2017 ALEX SOLER PRECISION INSPECTOR Ot M79.89 OTHER SPECIFIED SOFT TISSUE DISORDERS 10/22/2017 ALEX SOLER PRECISION INSPECTOR Ot R60.0 LOCALIZED EDEMA 10/22/2017 ABDULKADIR BATEMAN, XOCHILT Thorpe Ot R60.0 LOCALIZED EDEMA 10/22/2017 LUDWIG DO, MARIAJOSE D Ot K21.0 GASTRO-ESOPHAGEAL REFLUX DISEASE WITH ES 10/22/2017 LUDWIG DO, MARIAJOSE D Ot K76.0 FATTY (CHANGE OF) LIVER, NOT ELSEWHERE C 10/22/2017 TERA AMY Funmi ASSISTANT PLANT CONTROL OPERATOR Ot R10.32 LEFT LOWER QUADRANT PAIN 10/22/2017 AMY HALEY ASSISTANT PLANT CONTROL OPERATOR Ot R10.32 LEFT LOWER QUADRANT PAIN 10/22/2017 LUDWIG DO, MARIAJOSE D Ot K21.0 GASTRO-ESOPHAGEAL REFLUX DISEASE WITH ES 10/22/2017 LUDWIG DO, MARIAJOSE D Ot K76.0 FATTY (CHANGE OF) LIVER, NOT ELSEWHERE C 10/22/2017 ALEX SOLER PRECISION INSPECTOR Ot M79.89 OTHER SPECIFIED SOFT TISSUE DISORDERS 10/22/2017 ALEX SOLER PRECISION INSPECTOR Ot R60.0 LOCALIZED EDEMA 10/22/2017 ABDULKADIR BATEMAN, XOCHILT [place] Ot R60.0 LOCALIZED EDEMA 10/23/2017 ALEX SOLER PRECISION INSPECTOR Ot M79.89 OTHER SPECIFIED SOFT TISSUE DISORDERS 10/23/2017 ALEX SOLER PRECISION INSPECTOR Ot R60.0 LOCALIZED EDEMA 10/25/2017 Ot 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 10/25/2017 JOHANNA DOTY MD Ot 530.11 REFLUX ESOPHAGITIS 10/25/2017 JOHANNA DOTY MD Ot 530.3 ESOPHAGEAL STRICTURE 10/25/2017 JOHANNA DOTY MD Ot 530.5 DYSKINESIA OF ESOPHAGUS 10/25/2017 JOHANNA DOTY MD Ot 535.50 UNSP GASTRITIS GASTRODUODENITIS W/O ME 10/25/2017 JOHANNA DOTY MD Ot 535.60 DUODENITIS, WITHOUT MENTION OF HEMORRHAG 10/25/2017 JOHANNA DOTY MD Ot 553.3 DIAPHRAGMATIC HERNIA 10/25/2017 JOHANNA DOTY MD Ot 935.1 FOREIGN BODY ESOPHAGUS 10/25/2017 JOHANNA DOTY MD Ot E000.8 OTHER EXTERNAL CAUSE STATUS 10/25/2017 JOHANNA DOTY MD Ot E915 FB ENTERING OTH ORIFICE 10/25/2017 ALEX SOLER APRN Ot M79.89 OTHER SPECIFIED SOFT TISSUE DISORDERS 10/25/2017 ALEX SOLER APRN Ot R60.0 LOCALIZED EDEMA 10/25/2017 XOCHILT PANCHAL MD Ot R60.0 LOCALIZED EDEMA 10/25/2017 MARIAJOSE LUDWIG DO Ot K21.0 GASTRO-ESOPHAGEAL REFLUX DISEASE WITH ES 10/25/2017 LUDWIG MARIAJOSE GARCIA Ot K76.0 FATTY (CHANGE OF) LIVER, NOT ELSEWHERE C 10/25/2017 AMY HALEY Ot R10.32 LEFT LOWER QUADRANT PAIN 10/25/2017 MARIAJOSE LUDWIG DO Ot K21.0 GASTRO-ESOPHAGEAL REFLUX DISEASE WITH ES 10/26/2017 YOLANDA RUSH MD, Ot D61.818 OTHER PANCYTOPENIA 10/26/2017 YOLANDA RUSH MD, Ot E66.9 OBESITY, UNSPECIFIED 10/26/2017 YOLANDA RUSH MD, Ot K21.0 GASTRO-ESOPHAGEAL REFLUX DISEASE WITH ES 10/26/2017 YOLANDA RUSH MD Ot R07.89 OTHER CHEST PAIN 10/26/2017 YOLANDA RUSH MD Ot R16.1 SPLENOMEGALY, NOT ELSEWHERE CLASSIFIED 10/26/2017 YOLANDA RUSH MD Ot R59.0 LOCALIZED ENLARGED LYMPH NODES 10/26/2017 YOLANDA RUSH MD, Ot Z68.39 BODY MASS INDEX (BMI) 39.0-39.9, ADULT 10/26/2017 YOLANDA RUSH MD, Ot Z86.010 PERSONAL HISTORY OF COLONIC POLYPS 10/26/2017 YOLANDA RUSH MD, Ot D61.818 OTHER PANCYTOPENIA 10/26/2017 YOLANDA RUSH MD, Ot E66.9 OBESITY, UNSPECIFIED 10/26/2017 YOLANDA RUSH MD, Ot K21.0 GASTRO-ESOPHAGEAL REFLUX DISEASE WITH ES 10/26/2017 YOLANDA RUSH MD Ot R07.89 OTHER CHEST PAIN 10/26/2017 YOLANDA RUSH MD Ot R16.1 SPLENOMEGALY, NOT ELSEWHERE CLASSIFIED 10/26/2017 YOLANDA RUSH MD Ot R59.0 LOCALIZED ENLARGED LYMPH NODES 10/26/2017 YOLANDA RUSH MD Ot Z68.39 BODY MASS INDEX (BMI) 39.0-39.9, ADULT 10/26/2017 YOLANDA RUSH MD Ot Z86.010 PERSONAL HISTORY OF COLONIC POLYPS 11/01/2017 YOLANDA RUSH MD Ot D61.818 OTHER PANCYTOPENIA 11/01/2017 YOLANDA RUSH MD Ot E66.9 OBESITY, UNSPECIFIED 11/01/2017 YOLANDA RUSH MD Ot K21.0 GASTRO-ESOPHAGEAL REFLUX DISEASE WITH ES 11/01/2017 YOLANDA RUSH MD Ot R07.89 OTHER CHEST PAIN 11/01/2017 YOLANDA RUSH MD Ot R16.1 SPLENOMEGALY, NOT ELSEWHERE CLASSIFIED 11/01/2017 YOLANDA RUSH MD Ot R59.0 LOCALIZED ENLARGED LYMPH NODES 11/01/2017 YOLANDA RUSH MD, Ot Z68.39 BODY MASS INDEX (BMI) 39.0-39.9, ADULT 11/01/2017 YOLANDA RUSH MD Ot Z86.010 PERSONAL HISTORY OF COLONIC POLYPS 11/03/2017 MARIAJOSE LUDWIG DO Ot K21.0 GASTRO-ESOPHAGEAL REFLUX DISEASE WITH ES 11/03/2017 AMY HALEY Ot R10.32 LEFT LOWER QUADRANT PAIN 11/03/2017 MARIAJOSE LUDWIG DO Ot K21.0 GASTRO-ESOPHAGEAL REFLUX DISEASE WITH ES 11/03/2017 MARIAJOSE LUDWIG DO Ot K76.0 FATTY (CHANGE OF) LIVER, NOT ELSEWHERE C 11/03/2017 XOCHILT PANCHAL MD Ot R60.0 LOCALIZED EDEMA 11/03/2017 ALEX SOLER APRN Ot M79.89 OTHER SPECIFIED SOFT TISSUE DISORDERS 11/03/2017 ALEX SOLER APRN Ot R60.0 LOCALIZED EDEMA 11/04/2017 MARIAJOSE LUDWIG DO Ot K21.0 GASTRO-ESOPHAGEAL REFLUX DISEASE WITH ES 11/13/2017 Ot 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 11/13/2017 JOHANNA DOTY MD Ot 530.11 REFLUX ESOPHAGITIS 11/13/2017 JOHANNA DOTY MD Ot 530.3 ESOPHAGEAL STRICTURE 11/13/2017 JOHANNA DOTY MD Ot 530.5 DYSKINESIA OF ESOPHAGUS 11/13/2017 JOHANNA DOTY MD Ot 535.50 UNSP GASTRITIS GASTRODUODENITIS W/O ME 11/13/2017 JOHANNA DOTY MD, Ot 535.60 DUODENITIS, WITHOUT MENTION OF HEMORRHAG 11/13/2017 JOHANNA DOTY MD Ot 553.3 DIAPHRAGMATIC HERNIA 11/13/2017 JOHANNA DOTY MD, Ot 935.1 FOREIGN BODY ESOPHAGUS 11/13/2017 JOHANNA DOTY MD Ot E000.8 OTHER EXTERNAL CAUSE STATUS 11/13/2017 JOHANNA DOTY MD, Ot E915 FB ENTERING OTH ORIFICE 11/13/2017 ALEX SOLER PRECISION INSPECTOR Ot M79.89 OTHER SPECIFIED SOFT TISSUE DISORDERS 11/13/2017 ALEX SOLER APRN Ot R60.0 LOCALIZED EDEMA 11/13/2017 XOCHILT PANCHAL MD Ot R60.0 LOCALIZED EDEMA 11/13/2017 MARIAJOSE LUDWIG DO Ot K21.0 GASTRO-ESOPHAGEAL REFLUX DISEASE WITH ES 11/13/2017 MARIAJOSE LUDWIG DO Ot K76.0 FATTY (CHANGE OF) LIVER, NOT ELSEWHERE C 11/13/2017 MARIAJOSE LUDWIG DO Ot K21.0 GASTRO-ESOPHAGEAL REFLUX DISEASE WITH ES 11/13/2017 AMY HALEY Ot R10.32 LEFT LOWER QUADRANT PAIN 11/19/2017 Ot 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 11/19/2017 JOHANNA DOTY MD Ot 530.11 REFLUX ESOPHAGITIS 11/19/2017 JOHANNA ODTY MD Ot 530.3 ESOPHAGEAL STRICTURE 11/19/2017 JOHANNA DOTY MD Ot 530.5 DYSKINESIA OF ESOPHAGUS 11/19/2017 JOHANNA DOTY MD Ot 535.50 UNSP GASTRITIS GASTRODUODENITIS W/O ME 11/19/2017 JOHANNA DOTY MD, Ot 535.60 DUODENITIS, WITHOUT MENTION OF HEMORRHAG 11/19/2017 JOHANNA DOTY MD Ot 553.3 DIAPHRAGMATIC HERNIA 11/19/2017 JOHANNA DOTY MD Ot 935.1 FOREIGN BODY ESOPHAGUS 11/19/2017 JOHANNA DOTY MD Ot E000.8 OTHER EXTERNAL CAUSE STATUS 11/19/2017 OLIVIA DOTY MDAAKI Ot E915 FB ENTERING OTH ORIFICE 11/19/2017 ALEX SOLER APRN Ot M79.89 OTHER SPECIFIED SOFT TISSUE DISORDERS 11/19/2017 ALEX SOLER APRN Ot R60.0 LOCALIZED EDEMA 11/19/2017 XOCHILT PANCHAL MD Ot R60.0 LOCALIZED EDEMA 11/19/2017 LUDWIG DOMARIAJOSE D Ot K21.0 GASTRO-ESOPHAGEAL REFLUX DISEASE WITH ES 11/19/2017 LUDWIG DOMARIAJOSE D Ot K76.0 FATTY (CHANGE OF) LIVER, NOT ELSEWHERE C 11/19/2017 LUDWIG DO, MARIAJOSE D Ot K21.0 GASTRO-ESOPHAGEAL REFLUX DISEASE WITH ES 11/19/2017 AMY HALEY Ot R10.32 LEFT LOWER QUADRANT PAIN 11/19/2017 JACI, BOBAN N Ot D61.818 OTHER PANCYTOPENIA 11/19/2017 JACI, BOBAN N Ot E66.9 OBESITY, UNSPECIFIED 11/19/2017 JACI, BOBAN N Ot K21.0 GASTRO-ESOPHAGEAL REFLUX DISEASE WITH ES 11/19/2017 JACI, BOBAN N Ot R16.1 SPLENOMEGALY, NOT ELSEWHERE CLASSIFIED 11/19/2017 JACI, BOBAN N Ot R59.0 LOCALIZED ENLARGED LYMPH NODES 11/19/2017 JACI, BOBAN N Ot Z68.39 BODY MASS INDEX (BMI) 39.0-39.9, ADULT 11/22/2017 JACI, BOBAN N Ot D61.818 OTHER PANCYTOPENIA 11/22/2017 JACI, BOBAN N Ot E66.9 OBESITY, UNSPECIFIED 11/22/2017 JACI, BOBAN N Ot K21.0 GASTRO-ESOPHAGEAL REFLUX DISEASE WITH ES 11/22/2017 JACI, BOBAN N Ot R16.1 SPLENOMEGALY, NOT ELSEWHERE CLASSIFIED 11/22/2017 JACI, BOBAN N Ot R59.0 LOCALIZED ENLARGED LYMPH NODES 11/22/2017 JACI, BOBAN N Ot Z68.39 BODY MASS INDEX (BMI) 39.0-39.9, ADULT 11/23/2017 JACI, BOBAN N Ot D61.818 OTHER PANCYTOPENIA 11/23/2017 JACI, BOBAN N Ot E66.9 OBESITY, UNSPECIFIED 11/23/2017 JACI, BOBAN N Ot K21.0 GASTRO-ESOPHAGEAL REFLUX DISEASE WITH ES 11/23/2017 JACI, BOBPATRICE N Ot R16.1 SPLENOMEGALY, NOT ELSEWHERE CLASSIFIED 11/23/2017 JACI, SANTOSH N Ot R59.0 LOCALIZED ENLARGED LYMPH NODES 11/23/2017 JACISANTOSH N Ot Z68.39 BODY MASS INDEX (BMI) 39.0-39.9, ADULT 11/23/2017 JACI, BOBAN N Ot D61.818 OTHER PANCYTOPENIA 11/23/2017 JACI, BOBAN N Ot E66.9 OBESITY, UNSPECIFIED 11/23/2017 JACI, BOBPATRICE N Ot K21.0 GASTRO-ESOPHAGEAL REFLUX DISEASE WITH ES 11/23/2017 JACI, BOBPATRICE N Ot R16.1 SPLENOMEGALY, NOT ELSEWHERE CLASSIFIED 11/23/2017 JACI, BOBPATRICE N Ot R59.0 LOCALIZED ENLARGED LYMPH NODES 11/23/2017 JACI BOBPATRICE N Ot Z68.39 BODY MASS INDEX (BMI) 39.0-39.9, ADULT 02/09/2018 JACI, BOBAN N Ot D61.818 OTHER PANCYTOPENIA 02/09/2018 JACI, BOBAN N Ot E66.9 OBESITY, UNSPECIFIED 02/09/2018 JACI, BOBPATRICE N Ot K21.0 GASTRO-ESOPHAGEAL REFLUX DISEASE WITH ES 02/09/2018 JACI, BOBPATRICE N Ot R16.1 SPLENOMEGALY, NOT ELSEWHERE CLASSIFIED 02/09/2018 JACI BOBPATRICE N Ot R59.0 LOCALIZED ENLARGED LYMPH NODES 02/09/2018 JACISANTOSH N Ot Z68.39 BODY MASS INDEX (BMI) 39.0-39.9, ADULT 02/10/2018 JACI, BOBAN N Ot D61.818 OTHER PANCYTOPENIA 02/10/2018 JACI, BOBAN N Ot E66.9 OBESITY, UNSPECIFIED 02/10/2018 JACI, BOBAN N Ot K21.0 GASTRO-ESOPHAGEAL REFLUX DISEASE WITH ES 02/10/2018 JACI, BOBPATRICE N Ot R16.1 SPLENOMEGALY, NOT ELSEWHERE CLASSIFIED 02/10/2018 JACI, BOBAN N Ot R59.0 LOCALIZED ENLARGED LYMPH NODES 02/10/2018 JACI, BOBAN N Ot Z68.39 BODY MASS INDEX (BMI) 39.0-39.9, ADULT 02/15/2018 JACI, BOBAN N Ot D61.818 OTHER PANCYTOPENIA 02/15/2018 SANTOSH BEATTY Ot E66.9 OBESITY, UNSPECIFIED 02/15/2018 SANTOSH BEATTY Ot K21.0 GASTRO-ESOPHAGEAL REFLUX DISEASE WITH ES 02/15/2018 SANTOSH BEATTY Ot R16.1 SPLENOMEGALY, NOT ELSEWHERE CLASSIFIED 02/15/2018 SANTOSH BEATTY Ot R59.0 LOCALIZED ENLARGED LYMPH NODES 02/15/2018 SANTOSH BEATTY Ot Z68.39 BODY MASS INDEX (BMI) 39.0-39.9, ADULT 02/16/2018 SANTOSH BEATTY Ot D61.818 OTHER PANCYTOPENIA 02/16/2018 SANTOSH BEATTY Ot E66.9 OBESITY, UNSPECIFIED 02/16/2018 SANTOSH BEATTY Ot K21.0 GASTRO-ESOPHAGEAL REFLUX DISEASE WITH ES 02/16/2018 SANTOSH BEATTY Ot R16.1 SPLENOMEGALY, NOT ELSEWHERE CLASSIFIED 02/16/2018 SANTOSH BEATTY Ot R59.0 LOCALIZED ENLARGED LYMPH NODES 02/16/2018 SANTOSH BEATTY Ot Z68.39 BODY MASS INDEX (BMI) 39.0-39.9, ADULT 03/03/2018 Ot 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 03/03/2018 JOHANNA DOTY MD Ot 530.11 REFLUX ESOPHAGITIS 03/03/2018 JOHANNA DOTY MD Ot 530.3 ESOPHAGEAL STRICTURE 03/03/2018 JOHANNA DOTY MD Ot 530.5 DYSKINESIA OF ESOPHAGUS 03/03/2018 JOHANNA DOTY MD Ot 535.50 UNSP GASTRITIS GASTRODUODENITIS W/O ME 03/03/2018 JOHANNA DOTY MD Ot 535.60 DUODENITIS, WITHOUT MENTION OF HEMORRHAG 03/03/2018 JOHANNA DOTY MD Ot 553.3 DIAPHRAGMATIC HERNIA 03/03/2018 JOHANNA DOTY MD Ot 935.1 FOREIGN BODY ESOPHAGUS 03/03/2018 JOHANNA DOTY MD Ot E000.8 OTHER EXTERNAL CAUSE STATUS 03/03/2018 JOHANNA DOTY MD Ot E915 FB ENTERING OTH ORIFICE 03/03/2018 ALEX SOLER APRN Ot M79.89 OTHER SPECIFIED SOFT TISSUE DISORDERS 03/03/2018 ALEX SOLER APRN Ot R60.0 LOCALIZED EDEMA 03/03/2018 XOCHILT PANCHAL MD Ot R60.0 LOCALIZED EDEMA 03/03/2018 MARIAJOSE LUDWIG DO Ot K21.0 GASTRO-ESOPHAGEAL REFLUX DISEASE WITH ES 03/03/2018 LUDWIG DOMARIAJOSE Ot K76.0 FATTY (CHANGE OF) LIVER, NOT ELSEWHERE C 03/03/2018 LUDWIGMARIAJOSE MCGOWAN DO Ot K21.0 GASTRO-ESOPHAGEAL REFLUX DISEASE WITH ES 03/03/2018 AMY HALEY Ot R10.32 LEFT LOWER QUADRANT PAIN 03/03/2018 JACISANTOSH Ot D61.818 OTHER PANCYTOPENIA 03/03/2018 SANTOSH BEATTY Ot E66.9 OBESITY, UNSPECIFIED 03/03/2018 JACISANTOSH Ot K21.0 GASTRO-ESOPHAGEAL REFLUX DISEASE WITH ES 03/03/2018 JACISANTOSH Ot R16.1 SPLENOMEGALY, NOT ELSEWHERE CLASSIFIED 03/03/2018 SANTOSH BEATTY Ot R59.0 LOCALIZED ENLARGED LYMPH NODES 03/03/2018 SANTOSH BEATTY Ot Z68.39 BODY MASS INDEX (BMI) 39.0-39.9, ADULT 03/05/2018 AZALIA CHANDLER MD Ot 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, IN REMISSION 03/05/2018 AZALIA CHANDLER MD Ot E66.9 OBESITY, UNSPECIFIED 03/05/2018 AZALIA CHANDLER MD Ot I10 ESSENTIAL (PRIMARY) HYPERTENSION 03/05/2018 AZALIA CHANDLER MD Ot K02.9 DENTAL CARIES, UNSPECIFIED 03/05/2018 AZALIA CHANDLER MD Ot K21.9 GASTRO-ESOPHAGEAL REFLUX DISEASE WITHOUT 03/05/2018 AZALIA CHANDLER MD Ot M54.2 CERVICALGIA 03/05/2018 AZALIA CHANDLER MD Ot R07.9 CHEST PAIN, UNSPECIFIED 03/05/2018 AZALIA CHANDLER MD Ot R68.84 JAW PAIN 03/05/2018 AZALIA CHANDLER MD Ot Z68.39 BODY MASS INDEX (BMI) 39.0-39.9, ADULT 03/05/2018 AZALIA CHANDLER MD Ot Z82.49 FAMILY HX OF ISCHEM HEART DIS AND OTH DI 03/05/2018 AZALIA CHANDLER MD Ot Z86.010 PERSONAL HISTORY OF COLONIC POLYPS 03/05/2018 AZALIA CHANDLER MD Ot Z87.19 PERSONAL HISTORY OF OTHER DISEASES OF TH 03/05/2018 AZALIA CHANDLER MD Ot Z88.5 ALLERGY STATUS TO NARCOTIC AGENT STATUS 03/05/2018 AZALIA CHANDLER MD Ot Z88.8 ALLERGY STATUS TO OTH DRUG/MEDS/BIOL SUB 03/05/2018 AZALIA CHANDLER MD Ot Z90.89 ACQUIRED ABSENCE OF OTHER ORGANS 03/05/2018 AZALIA CHANDLER MD Ot Z92.21 PERSONAL HISTORY OF ANTINEOPLASTIC CHEMO 03/08/2018 AZALIA CHANDLER MD Ot 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, IN REMISSION 03/08/2018 AZALIA CHANDLER MD Ot E66.9 OBESITY, UNSPECIFIED 03/08/2018 AZALIA CHANDLER MD Ot I10 ESSENTIAL (PRIMARY) HYPERTENSION 03/08/2018 AZALIA CHANDLER MD Ot K02.9 DENTAL CARIES, UNSPECIFIED 03/08/2018 AZALIA CHANDLER MD Ot K21.9 GASTRO-ESOPHAGEAL REFLUX DISEASE WITHOUT 03/08/2018 AZALIA CHANDLER MD Ot M54.2 CERVICALGIA 03/08/2018 AZALIA CHANDLER MD Ot R07.9 CHEST PAIN, UNSPECIFIED 03/08/2018 AZALIA CHANDLER MD Ot R68.84 JAW PAIN 03/08/2018 AZALIA CHANDLER MD Ot Z68.39 BODY MASS INDEX (BMI) 39.0-39.9, ADULT 03/08/2018 AZALIA CHANDLER MD Ot Z82.49 FAMILY HX OF ISCHEM HEART DIS AND OTH DI 03/08/2018 AZALIA CHANDLER MD Ot Z86.010 PERSONAL HISTORY OF COLONIC POLYPS 03/08/2018 AZALIA CHANDLER MD Ot Z87.19 PERSONAL HISTORY OF OTHER DISEASES OF 03/08/2018 AZALIA CHANDLER MD Ot Z88.5 ALLERGY STATUS TO NARCOTIC AGENT STATUS 03/08/2018 AZALIA CHANDLER MD Ot Z88.8 ALLERGY STATUS TO OTH DRUG/MEDS/BIOL SUB 03/08/2018 AZALIA CHANDLER MD Ot Z90.89 ACQUIRED ABSENCE OF OTHER ORGANS 03/08/2018 AZALIA CHANDLER MD Ot Z92.21 PERSONAL HISTORY OF ANTINEOPLASTIC CHEMO 04/11/2018 Ot 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 04/11/2018 JOHANNA DOTY MD Ot 530.11 REFLUX ESOPHAGITIS 04/11/2018 JOHANNA DOTY MD Ot 530.3 ESOPHAGEAL STRICTURE 04/11/2018 JOHANNA DOTY MD Ot 530.5 DYSKINESIA OF ESOPHAGUS 04/11/2018 JOHANNA DOTY MD Ot 535.50 UNSP GASTRITIS GASTRODUODENITIS W/O ME 04/11/2018 JOHANNA DOTY MD Ot 535.60 DUODENITIS, WITHOUT MENTION OF HEMORRHAG 04/11/2018 JOHANNA DOTY MD Ot 553.3 DIAPHRAGMATIC HERNIA 04/11/2018 JOHANNA DOTY MD Ot 935.1 FOREIGN BODY ESOPHAGUS 04/11/2018 JOHANNA DOTY MD Ot E000.8 OTHER EXTERNAL CAUSE STATUS 04/11/2018 JOHANNA DOTY MD, Ot E915 FB ENTERING OTH ORIFICE 04/11/2018 ALEX SOLER APRN Ot M79.89 OTHER SPECIFIED SOFT TISSUE DISORDERS 04/11/2018 ALEX SOLER APRN Ot R60.0 LOCALIZED EDEMA 04/11/2018 XOCHILT PANCHAL MD Ot R60.0 LOCALIZED EDEMA 04/11/2018 MARIAJOSE LUDWIG DO Ot K21.0 GASTRO-ESOPHAGEAL REFLUX DISEASE WITH ES 04/11/2018 MARIAJOSE LUDWIG DO Ot K76.0 FATTY (CHANGE OF) LIVER, NOT ELSEWHERE C 04/11/2018 MARIAJOSE LUDWIG DO Ot K21.0 GASTRO-ESOPHAGEAL REFLUX DISEASE WITH ES 04/11/2018 AMY HALEY Ot R10.32 LEFT LOWER QUADRANT PAIN 05/31/2018 SANTOSH BEATTY Ot D61.818 OTHER PANCYTOPENIA 05/31/2018 SANTOSH BEATTY Ot E66.9 OBESITY, UNSPECIFIED 05/31/2018 SANTOSH BEATTY Ot K21.0 GASTRO-ESOPHAGEAL REFLUX DISEASE WITH ES 05/31/2018 SANTOSH BEATTY Ot R16.1 SPLENOMEGALY, NOT ELSEWHERE CLASSIFIED 05/31/2018 SANTOSH BEATTY Ot R59.0 LOCALIZED ENLARGED LYMPH NODES 05/31/2018 SANTOSH BEATTY Ot Z23 ENCOUNTER FOR IMMUNIZATION 05/31/2018 SANTOSH BEATTY Ot Z68.39 BODY MASS INDEX (BMI) 39.0-39.9, ADULT 06/01/2018 AZALIA CHANDLER MD Ot 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, IN REMISSION 06/01/2018 AZALIA CHANDLER MD Ot E66.9 OBESITY, UNSPECIFIED 06/01/2018 AZALIA CHANDLER MD Ot I10 ESSENTIAL (PRIMARY) HYPERTENSION 06/01/2018 AZALIA CHANDLER MD Ot K02.9 DENTAL CARIES, UNSPECIFIED 06/01/2018 AZALIA CHANDLER MD Ot K21.9 GASTRO-ESOPHAGEAL REFLUX DISEASE WITHOUT 06/01/2018 AZALIA CHANDLER MD Ot M54.2 CERVICALGIA 06/01/2018 AZALIA CHANDLER MD Ot R07.9 CHEST PAIN, UNSPECIFIED 06/01/2018 AZALIA CHANDLER MD Ot R68.84 JAW PAIN 06/01/2018 AZALIA CHANDLER MD, Ot Z68.39 BODY MASS INDEX (BMI) 39.0-39.9, ADULT 06/01/2018 AZALIA CHANDLER MD, Ot Z82.49 FAMILY HX OF ISCHEM HEART DIS AND OTH DI 06/01/2018 AZALIA CHANDLER MD, Ot Z86.010 PERSONAL HISTORY OF COLONIC POLYPS 06/01/2018 AZALIA CHANDLER MD, Ot Z87.19 PERSONAL HISTORY OF OTHER DISEASES OF TH 06/01/2018 AZALIA CHANDLER MD, Ot Z88.5 ALLERGY STATUS TO NARCOTIC AGENT STATUS 06/01/2018 AZALIA CHANDLER MD, Ot Z88.8 ALLERGY STATUS TO OT DRUG/MEDS/BIOL SUB 06/01/2018 AZALIA CHANDLER MD, Ot Z90.89 ACQUIRED ABSENCE OF OTHER ORGANS 06/01/2018 AZALIA CHANDLER MD Ot Z92.21 PERSONAL HISTORY OF ANTINEOPLASTIC CHEMO Procedures Code Description Performed By Performed On [facility] OLVIN DOAN 12/10/2012 86.04 OTHER SKIN SUBQ I D 02/13/2013 Results Test Result Range TSH - 06/18/17 08:34 TSH 2.35 mIU/L 0.40-4.50 BNP - 06/18/17 08:34 B TYPE NATRIURETIC PEPTIDE (BNP) 4 pg/mL <100 Complete blood count (CBC) with automated white blood cell (WBC) differential - 10/25/17 04:38 Blood leukocytes automated count (number/volume) 1.4 10*3/uL 4.3-11.0 Blood erythrocytes automated count (number/volume) 2.74 10*6/uL 4.35-5.85 Venous blood hemoglobin measurement (mass/volume) 8.3 g/dL 13.3-17.7 Blood hematocrit (volume fraction) 27 % 40-54 Automated erythrocyte mean corpuscular volume 97 [[id number]] 80-99 Automated erythrocyte mean corpuscular hemoglobin (mass per erythrocyte) 30 pg 25-34 Automated erythrocyte mean corpuscular hemoglobin concentration measurement ( mass/volume) 31 g/dL 32-36 Automated erythrocyte distribution width ratio 20.9 % 10.0-14.5 Automated blood platelet count (count/volume) 33 10*3/uL 130-400 Automated blood platelet mean volume measurement TNP 7.4 -10.4 Automated blood neutrophils/100 leukocytes 8 % 42-75 Automated blood lymphocytes/100 leukocytes 88 % 12-44 Blood monocytes/100 leukocytes 3 % 0-12 Automated blood eosinophils/100 leukocytes 1 % 0-10 Automated blood basophils/100 leukocytes 0 % 0-10 Blood neutrophils automated count (number/volume) 0.1 10*3 1.8-7.8 Blood lymphocytes automated count (number/volume) 1.3 10*3 1.0-4.0 Blood monocytes automated count (number/volume) 0.0 10*3 0.0-1.0 Automated eosinophil count 0.0 10*3/uL 0.0-0.3 Automated blood basophil count (count/volume) 0.0 10*3/uL 0.0-0.1 Comprehensive metabolic panel - 10/25/17 04:38 Serum or plasma sodium measurement (moles/volume) 140 mmol/L 135-145 Serum or plasma potassium measurement (moles/volume) 4.0 mmol/L 3.6-5.0 Serum or plasma chloride measurement (moles/volume) 108 mmol/L 98-107 Carbon dioxide 26 mmol/L 21-32 Serum or plasma anion gap determination (moles/volume) 6 mmol/L 5-14 Serum or plasma urea nitrogen measurement (mass/volume) 20 mg/dL 7-18 Serum or plasma creatinine measurement (mass/volume) 0.83 mg/dL 0.60-1.30 Serum or plasma urea nitrogen/creatinine mass ratio 24 NRG Serum or plasma creatinine measurement with calculation of estimated glomerular filtration rate > NRG Serum or plasma glucose measurement (mass/volume) 102 mg/dL 70-105 Serum or plasma calcium measurement (mass/volume) 8.7 mg/dL 8.5-10.1 Serum or plasma total bilirubin measurement (mass/volume) 0.8 mg/dL 0.1-1.0 Serum or plasma alkaline phosphatase measurement (enzymatic activity/volume) 74 U/L 40-136 Serum or plasma aspartate aminotransferase measurement (enzymatic activity/ volume) 18 U/L 5-34 Serum or plasma alanine aminotransferase measurement (enzymatic activity/volume ) 12 U/L 0-55 Serum or plasma protein measurement (mass/volume) 8.1 g/dL 6.4-8.2 Serum or plasma albumin measurement (mass/volume) 4.3 g/dL 3.2-4.5 Magnesium - 10/25/17 04:38 Magnesium 2.5 mg/dL 1.8-2.4 Serum or plasma creatine kinase measurement (enzymatic activity/volume) - 10/25 04:38 Serum or plasma creatine kinase measurement (enzymatic activity/volume) 58 U/L 30-200 Serum or plasma creatine kinase MB measurement (enzymatic activity/volume) - 04:38 Serum or plasma creatine kinase MB measurement (enzymatic activity/volume) 0.6 ng/mL <6.6 Serum or plasma troponin i.cardiac measurement (mass/volume) - 10/25/17 04:38 Serum or plasma troponin i.cardiac measurement (mass/volume) < ng/ mL <0.30 Serum or plasma amylase measurement (enzymatic activity/volume) - 10/25/17 04: 38 Serum or plasma amylase measurement (enzymatic activity/volume) 79 U /L 25-125 Lipase - 10/25/17 04:38 Lipase 44 U/L 8-78 PT panel in platelet poor plasma by coagulation assay - 10/25/17 04:38 Prothrombin time (PT) in platelet poor plasma by coagulation assay 14.8 s 12.2-14.7 INR in platelet poor plasma or blood by coagulation assay 1.2 0.8-1.4 Activated partial thromboplastin time (aPTT) in platelet poor plasma bycoagulation assay - 10/25/17 04:38 Activated partial thromboplastin time (aPTT) in platelet poor plasma bycoagulation assay 30 s 24-35 Blood manual differential performed detection - 10/25/17 04:38 Blood monocytes/100 leukocytes 3 % NRG Manual blood segmented neutrophils/100 leukocytes 8 % NRG Manual blood lymphocytes/100 leukocytes 89 % NRG Manual blood lymphocytes variant/100 leukocytes 15 % NRG Blood polychromasia detection by light microscopy SLIGHT NRG Blood anisocytosis detection by light microscopy MARKED NRG Serum or plasma lithium measurement (moles/volume) - 10/25/17 04:38 BNP level 14.4 pg/mL <100.0 Urine drug screening test - 10/25/17 06:17 Urine phencyclidine detection by screening method NEGATIVE NEGATIVE Urine benzodiazepines detection by screening method NEGATIVE NEGATIVE Urine cocaine detection NEGATIVE NEGATIVE Urine amphetamines detection by screening method NEGATIVE NEGATIVE Urine methamphetamine detection by screening method NEGATIVE NEGATIVE Urine cannabinoids detection by screening method NEGATIVE NEGATIVE Urine opiates detection by screening method NEGATIVE NEGATIVE Urine barbiturates detection NEGATIVE NEGATIVE Screening urine tricyclic antidepressants detection NEGATIVE NEGATIVE Urine methadone detection by screening method NEGATIVE NEGATIVE Urine oxycodone detection NEGATIVE NEGATIVE Urine propoxyphene detection NEGATIVE NEGATIVE PT panel in platelet poor plasma by coagulation assay - 10/25/17 08:10 Prothrombin time (PT) in platelet poor plasma by coagulation assay 15.1 s 12.2-14.7 INR in platelet poor plasma or blood by coagulation assay 1.2 0.8-1.4 Activated partial thromboplastin time (aPTT) in platelet poor plasma bycoagulation assay - 10/25/17 08:10 Activated partial thromboplastin time (aPTT) in platelet poor plasma bycoagulation assay 30 s 24-35 Serum or plasma troponin i.cardiac measurement (mass/volume) - 10/25/17 08:10 Serum or plasma troponin i.cardiac measurement (mass/volume) < ng/ mL <0.30 Myoglobin, serum - 10/25/17 08:10 Myoglobin, serum 31.1 ng/mL 10.0-92.0 Complete urinalysis with reflex to culture - 10/25/17 09:15 Urine color determination YELLOW NRG Urine clarity determination CLEAR NRG Urine pH measurement by test strip 8 5-9 Specific gravity of urine by test strip 1.010 1.016- 1.022 Urine protein assay by test strip, semi-quantitative NEGATIVE NEGATIVE Urine glucose detection by automated test strip NEGATIVE NEGATIVE Erythrocytes detection in urine sediment by light microscopy NEGATIVE NEGATIVE Urine ketones detection by automated test strip NEGATIVE NEGATIVE Urine nitrite detection by test strip NEGATIVE NEGATIVE Urine total bilirubin detection by test strip NEGATIVE NEGATIVE Urine urobilinogen measurement by automated test strip (mass/volume) 1 mg/dL NORMAL Urine leukocyte esterase detection by dipstick NEGATIVE NEGATIVE Automated urine sediment erythrocyte count by microscopy (number/high power field) NONE NRG Automated urine sediment leukocyte count by microscopy (number/high power field ) NONE NRG Bacteria detection in urine sediment by light microscopy NEGATIVE NRG Squamous epithelial cells detection in urine sediment by light microscopy RARE NRG Crystals detection in urine sediment by light microscopy NONE NRG Casts detection in urine sediment by light microscopy NONE NRG Mucus detection in urine sediment by light microscopy NEGATIVE NRG Complete urinalysis with reflex to culture NO NRG Pathologist review of blood test by comment - 10/25/17 14:40 Blood leukocytes automated count (number/volume) 1.3 10*3/uL 4.3-11.0 Blood erythrocytes automated count (number/volume) 2.67 10*6/uL 4.35-5.85 Venous blood hemoglobin measurement (mass/volume) 8.1 g/dL 13.3-17.7 Blood hematocrit (volume fraction) 26 % 40-54 Automated erythrocyte mean corpuscular volume 98 [foz_us] 80-99 Automated erythrocyte mean corpuscular hemoglobin (mass per erythrocyte) 30 pg 25-34 Automated erythrocyte mean corpuscular hemoglobin concentration measurement ( mass/volume) 31 g/dL 32-36 Automated erythrocyte distribution width ratio 21.1 % 10.0-14.5 Automated blood platelet count (count/volume) 31 10*3/uL 130-400 Automated blood platelet mean volume measurement TNP 7.4 -10.4 Automated blood neutrophils/100 leukocytes 10 % 42-75 Automated blood lymphocytes/100 leukocytes 84 % 12-44 Blood monocytes/100 leukocytes 0 % NRG Automated blood eosinophils/100 leukocytes 1 % 0-10 Automated blood basophils/100 leukocytes 0 % 0-10 Blood neutrophils automated count (number/volume) 0.1 10*3 1.8-7.8 Blood lymphocytes automated count (number/volume) 1.1 10*3 1.0-4.0 Blood monocytes automated count (number/volume) 0.1 10*3 0.0-1.0 Automated eosinophil count 0.0 10*3/uL 0.0-0.3 Automated blood basophil count (count/volume) 0.0 10*3/uL 0.0-0.1 Manual blood segmented neutrophils/100 leukocytes 10 % NRG Blood band neutrophils/100 leukocytes 0 % NRG Manual blood lymphocytes/100 leukocytes 90 % NRG Manual eosinophils/100 leukocytes in nose 0 % NRG Manual blood basophils/100 leukocytes 0 % NRG Blood polychromasia detection by light microscopy SLIGHT NRG Blood anisocytosis detection by light microscopy SLIGHT NRG Blood ovalocytes detection by light microscopy SLIGHT NRG Blood poikilocytosis detection by light microscopy MODERATE NRG Manual blood nucleated erythrocytes/100 leukocytes ratio 2 NRG Blood microcytes detection by light microscopy SLIGHT NRG Blood reticulocytes count (number/volume) 38 10*9/L 24- 90 Blood reticulocytes/100 erythrocytes 1.43 % 0.50-2.40 Serum or plasma troponin i.cardiac measurement (mass/volume) - 10/25/17 14:40 Serum or plasma troponin i.cardiac measurement (mass/volume) < ng/ mL <0.30 Tick identification panel - 10/25/17 14:40 Serum Ehrlichia chaffeensis IgG antibody detection <1:16 <1:16 Serum Ehrlichia chaffeensis IgM antibody detection <1:10 <1:10 Serum Rickettsia rickettsii IgG antibody assay (units/volume) < <1:16 [place] spotted fever panel < <1:10 Francisella tularensis antibody assay 1:20 NRG LYME AB G M 0.21 % 0.00-0.89 Interpretation of Lyme disease antibody assay Negative Negative Hemoglobin A1c - 10/25/17 14:40 Blood hemoglobin A1C measurement (mass/volume) 5.6 % 4.0- 5.6 MEAN BLOOD GLUCOSE 114 % <=126 Serum iron and total iron binding capacity panel - 10/25/17 14:40 Serum or plasma iron measurement (mass/volume) 141 % 40- 180 Total iron binding capacity and transferrin saturation measurement 45 % 15-50 Iron binding capacity [mass/volume] in serum or plasma 312 % 280-380 UIBC (unsaturated iron binding capacity) 171 % 55-450 Serum or plasma ferritin measurement (mass/volume) 166.0 % 25.0-300.0 Automated blood complete blood count (hemogram) panel - 10/26/17 04:27 Blood leukocytes automated count (number/volume) 1.4 10*3/uL 4.3-11.0 Blood erythrocytes automated count (number/volume) 2.49 10*6/uL 4.35-5.85 Venous blood hemoglobin measurement (mass/volume) 7.4 g/dL 13.3-17.7 Blood hematocrit (volume fraction) 24 % 40-54 Automated erythrocyte mean corpuscular volume 97 [foz_us] 80-99 Automated erythrocyte mean corpuscular hemoglobin (mass per erythrocyte) 30 pg 25-34 Automated erythrocyte mean corpuscular hemoglobin concentration measurement ( mass/volume) 31 g/dL 32-36 Automated erythrocyte distribution width ratio 21.1 % 10.0-14.5 Automated blood platelet count (count/volume) 34 10*3/uL 130-400 Automated blood platelet mean volume measurement TNP 7.4 -10.4 Comprehensive metabolic panel - 10/26/17 04:27 Serum or plasma sodium measurement (moles/volume) 139 mmol/L 135-145 Serum or plasma potassium measurement (moles/volume) 4.5 mmol/L 3.6-5.0 Serum or plasma chloride measurement (moles/volume) 109 mmol/L 98-107 Carbon dioxide 25 mmol/L 21-32 Serum or plasma anion gap determination (moles/volume) 5 mmol/L 5-14 Serum or plasma urea nitrogen measurement (mass/volume) 16 mg/dL 7-18 Serum or plasma creatinine measurement (mass/volume) 0.76 mg/dL 0.60-1.30 Serum or plasma urea nitrogen/creatinine mass ratio 21 NRG Serum or plasma creatinine measurement with calculation of estimated glomerular filtration rate > NRG Serum or plasma glucose measurement (mass/volume) 101 mg/dL 70-105 Serum or plasma calcium measurement (mass/volume) 8.5 mg/dL 8.5-10.1 Serum or plasma total bilirubin measurement (mass/volume) 0.8 mg/dL 0.1-1.0 Serum or plasma alkaline phosphatase measurement (enzymatic activity/volume) 66 U/L 40-136 Serum or plasma aspartate aminotransferase measurement (enzymatic activity/ volume) 16 U/L 5-34 Serum or plasma alanine aminotransferase measurement (enzymatic activity/volume ) 10 U/L 0-55 Serum or plasma protein measurement (mass/volume) 7.2 g/dL 6.4-8.2 Serum or plasma albumin measurement (mass/volume) 3.9 g/dL 3.2-4.5 Lipid 1996 panel - 10/26/17 04:27 Serum or plasma triglyceride measurement (mass/volume) 68 mg/dL <150 Serum or plasma cholesterol measurement (mass/volume) 81 mg/dL < 200 Serum or plasma cholesterol in HDL measurement (mass/volume) 21 mg/ dL 40-60 Cholesterol in LDL [mass/volume] in serum or plasma by direct assay 53 mg/dL 1-129 Serum or plasma cholesterol in VLDL measurement (mass/volume) 14 mg/ dL 5-40 CMP - 10/29/17 09:27 GLUCOSE 90 mg/dL 65-99 UREA NITROGEN (BUN) 20 mg/dL 7-25 CREATININE 0.76 mg/dL 0.60-1.35 eGFR NON-AFR. ANGUILLAN 113 mL/min/1.73m2 > OR=60 eGFR 130 mL/min/1.73m2 > OR=60 BUN/CREATININE RATIO NOT APPLICABLE (calc) 6-22 SODIUM 137 mmol/L 135-146 POTASSIUM 3.8 mmol/L 3.5-5.3 CHLORIDE 103 mmol/L 98-110 CARBON DIOXIDE 28 mmol/L 20-31 CALCIUM 9.4 mg/dL 8.6-10.3 PROTEIN, TOTAL 8.1 g/dL 6.1-8.1 ALBUMIN 4.4 g/dL 3.6-5.1 GLOBULIN 3.7 g/dL (calc) 1.9-3.7 ALBUMIN/GLOBULIN RATIO 1.2 (calc) 1.0-2.5 BILIRUBIN, TOTAL 0.9 mg/dL 0.2-1.2 ALKALINE PHOSPHATASE 72 U/L 40-115 AST 16 U/L 10-40 ALT 11 U/L 9-46 CBC - 10/29/17 09:27 WHITE BLOOD CELL COUNT 1.4 Thousand/uL 3.8-10.8 RED BLOOD CELL COUNT 2.91 Million/uL 4.20-5.80 HEMOGLOBIN 8.6 g/dL 13.2-17.1 HEMATOCRIT 27.5 % 38.5-50.0 MCV 94.5 fL 80.0-100.0 MCH 29.6 pg 27.0-33.0 MCHC 31.3 g/dL 32.0-36.0 RDW 20.8 % 11.0-15.0 PLATELET COUNT 33 Thousand/uL 140-400 MPV TNP fL NRG COMMENT(S) NRG DIFFERENTIAL, MANUAL - 10/29/17 09:27 ABSOLUTE NEUTROPHILS 164 cells/uL 4862-8470 ABSOLUTE MONOCYTES 14 cells/uL 200-950 ABSOLUTE EOSINOPHILS 14 cells/uL 15-500 ABSOLUTE BASOPHILS 0 cells/uL 0-200 NEUTROPHILS 11.7 % NRG LYMPHOCYTES 86.3 % NRG MONOCYTES 1.0 % NRG EOSINOPHILS 1.0 % NRG BASOPHILS 0 % NRG ABSOLUTE LYMPHOCYTES 1208 cells/uL 850-3900 PLATELET ESTIMATION DECREASED ADEQUATE NOTE NRG Complete blood count (CBC) with automated white blood cell (WBC) differential - 03/05/18 18:20 Blood leukocytes automated count (number/volume) 6.8 10*3/uL 4.3-11.0 Blood erythrocytes automated count (number/volume) 5.22 10*6/uL 4.35-5.85 Venous blood hemoglobin measurement (mass/volume) 15.7 g/dL 13.3-17.7 Blood hematocrit (volume fraction) 45 % 40-54 Automated erythrocyte mean corpuscular volume 85 [foz_us] 80-99 Automated erythrocyte mean corpuscular hemoglobin (mass per erythrocyte) 30 pg 25-34 Automated erythrocyte mean corpuscular hemoglobin concentration measurement ( mass/volume) 35 g/dL 32-36 Automated erythrocyte distribution width ratio 12.9 % 10.0-14.5 Automated blood platelet count (count/volume) 170 10*3/uL 130-400 Automated blood platelet mean volume measurement 11.1 [foz_us] 7.4-10.4 Automated blood neutrophils/100 leukocytes 73 % 42-75 Automated blood lymphocytes/100 leukocytes 17 % 12-44 Blood monocytes/100 leukocytes 7 % 0-12 Automated blood eosinophils/100 leukocytes 3 % 0-10 Automated blood basophils/100 leukocytes 0 % 0-10 Blood neutrophils automated count (number/volume) 5.0 10*3 1.8-7.8 Blood lymphocytes automated count (number/volume) 1.1 10*3 1.0-4.0 Blood monocytes automated count (number/volume) 0.5 10*3 0.0-1.0 Automated eosinophil count 0.2 10*3/uL 0.0-0.3 Automated blood basophil count (count/volume) 0.0 10*3/uL 0.0-0.1 PT panel in platelet poor plasma by coagulation assay - 03/05/18 18:20 Prothrombin time (PT) in platelet poor plasma by coagulation assay 13.0 s 12.2-14.7 INR in platelet poor plasma or blood by coagulation assay 1.0 0.8-1.4 Activated partial thromboplastin time (aPTT) in platelet poor plasma bycoagulation assay - 03/05/18 18:20 Activated partial thromboplastin time (aPTT) in platelet poor plasma bycoagulation assay 29 s 24-35 Comprehensive metabolic panel - 03/05/18 18:20 Serum or plasma sodium measurement (moles/volume) 140 mmol/L 135-145 Serum or plasma potassium measurement (moles/volume) 4.3 mmol/L 3.6-5.0 Serum or plasma chloride measurement (moles/volume) 105 mmol/L 98-107 Carbon dioxide 22 mmol/L 21-32 Serum or plasma anion gap determination (moles/volume) 13 mmol/L 5-14 Serum or plasma urea nitrogen measurement (mass/volume) 17 mg/dL 7-18 Serum or plasma creatinine measurement (mass/volume) 0.86 mg/dL 0.60-1.30 Serum or plasma urea nitrogen/creatinine mass ratio 20 NRG Serum or plasma creatinine measurement with calculation of estimated glomerular filtration rate > NRG Serum or plasma glucose measurement (mass/volume) 104 mg/dL 70-105 Serum or plasma calcium measurement (mass/volume) 9.7 mg/dL 8.5-10.1 Serum or plasma total bilirubin measurement (mass/volume) 0.4 mg/dL 0.1-1.0 Serum or plasma alkaline phosphatase measurement (enzymatic activity/volume) 108 U/L 40-136 Serum or plasma aspartate aminotransferase measurement (enzymatic activity/ volume) 19 U/L 5-34 Serum or plasma alanine aminotransferase measurement (enzymatic activity/volume ) 25 U/L 0-55 Serum or plasma protein measurement (mass/volume) 8.0 g/dL 6.4-8.2 Serum or plasma albumin measurement (mass/volume) 4.6 g/dL 3.2-4.5 Magnesium - 03/05/18 18:20 Magnesium 2.6 mg/dL 1.8-2.4 Serum or plasma troponin i.cardiac measurement (mass/volume) - 03/05/18 18:20 Serum or plasma troponin i.cardiac measurement (mass/volume) < ng/ mL <0.30 Myoglobin, serum - 03/05/18 18:20 Myoglobin, serum 28.0 ng/mL 10.0-92.0 Fibrin D-dimer FEU measurement in platelet poor plasma (mass/volume) - 18:39 Fibrin D-dimer FEU measurement in platelet poor plasma (mass/volume) 0.20 ug/mL 0.00-0.49 PDM - 09 PANEL (PROFILE 1) - 05/25/18 09:36 Prescribed Drug 1 [place](TM) NRG Creatinine 112.2 mg/dL > or=20.0 pH 6.97 4.5 - 9.0 Oxidant NEGATIVE mcg/mL <200 Amphetamines NEGATIVE ng/mL <500 medMATCH Amphetamines CONSISTENT NRG Benzodiazepines NEGATIVE ng/mL <100 medMATCH Benzodiazepines CONSISTENT NRG Marijuana Metabolite NEGATIVE ng/mL <20 medMATCH Marijuana Metab CONSISTENT NRG Cocaine Metabolite NEGATIVE ng/mL <150 medMATCH Cocaine Metab CONSISTENT NRG Opiates NEGATIVE ng/mL <100 medMATCH Opiates INCONSISTENT NRG Oxycodone NEGATIVE ng/mL <100 medMATCH Oxycodone CONSISTENT NRG COMMENT NRG Barbiturates NEGATIVE ng/mL <300 medMATCH Barbiturates CONSISTENT NRG Methadone Metabolite NEGATIVE ng/mL <100 medMATCH Methadone Metab CONSISTENT NRG Phencyclidine NEGATIVE ng/mL <25 medMATCH Phencyclidine CONSISTENT NRG Encounters ACCT No. Visit Date/Time Discharge Status Pt. Type Provider Facility Loc./Unit Complaint [id number] 07/06/2014 14:22:00 07/06/2014 23:59:59 [facility] Outpatient MARIPOSA BRENNER DO [id number] 05/02/2014 14:27:00 05/02/2014 23:59:59 [facility] Outpatient AMY HALEY APRN [id number] 03/02/2014 09:15:00 03/02/2014 23:59:59 [facility] Outpatient AMY HALEY APRN [id number] 09/15/2013 10:30:00 09/15/2013 23:59:59 [facility] Outpatient AMY HALEY APRN [id number] 04/14/2013 14:56:00 04/14/2013 23:59:59 [facility] Outpatient MARIPOSA BRENNER DO [id number] 04/05/2013 13:52:00 04/05/2013 23:59:59 [facility] Outpatient SARI POPE APRN [id number] 02/27/2013 14:37:00 Document Registration [id number] 02/24/2013 11:36:00 Document Registration [id number] 02/21/2013 16:17:00 Document Registration [id number] 12/10/2012 09:18:00 Document Registration [id number] 12/02/2012 13:42:00 Document Registration [id number] 05/25/2018 09:40:00 05/25/2018 23:59:59 [facility] Outpatient AMY HALEY APRN [facility] [id number] 05/25/2018 09:40:00 Document Registration [id number] 10/29/2017 09:00:00 Document Registration [id number] 06/18/2017 08:00:00 Document Registration [id number] 06/02/2018 10:47:00 06/02/2018 23:59:59 [facility] Outpatient SANTOSH BEATTY [facility] ONC [id number] 03/05/2018 16:41:00 03/05/2018 19:50:00 DIS Outpatient AZALIA CHANDLER MD [facility] ER PAIN IN NECK,PAIN DOWN LEGS [id number] 02/07/2018 12:47:00 02/07/2018 23:59:59 [facility] Outpatient SANTOSH BEATTY [facility] ONC [id number] 10/25/2017 07:00:00 10/26/2017 10:34:00 DIS Inpatient YOLANDA RUSH MD [facility] 4TH CHEST PAIN; PANCYTOPENIA ; SPLENOMEGALY [id number] 10/22/2017 10:53:00 10/22/2017 23:59:59 [facility] Outpatient MARIAJOSE LUDWIG DO [facility] CARD REFLUX ESOPHAGITIS [id number] 10/15/2017 08:13:00 10/15/2017 23:59:59 [facility] Outpatient AMY HALEY [facility] RAD R10.32 ABDOMINAL PAIN , LEFT LOWER QUADRANT [id number] 10/15/2017 07:33:00 10/15/2017 23:59:59 CLS Outpatient MARIAJOSE LUDWIG DO [facility] RAD REFLUX EXOPHAGITIS [id number] 08/03/2017 13:34:00 08/03/2017 23:59:59 CLS Outpatient ABDULKADIR BATEMAN, XOCHILT Thorpe [facility] CARD EDEMA OF LLE [id number] 07/13/2017 06:48:00 07/13/2017 10:00:00 DIS Outpatient MARIAJOSE LUDWIG DO [facility] ENDO RECTAL BLEEDING/REFLUX [id number] 07/06/2017 05:37:00 07/06/2017 11:26:00 DIS Outpatient MARIAJOSE LUDWIG DO [facility] PREOP COLONOSCOPY/EGD [id number] 05/24/2017 12:53:00 05/24/2017 23:59:59 CLS Outpatient ALEX SOLER PRECISION INSPECTOR [facility] RAD LT LEG SWELLING [id number] 12/13/2015 10:44:00 12/13/2015 11:49:00 DIS Emergency ROSENDO HUSSEIN [facility] ER ABSCESS [id number] 11/08/2014 17:12:00 11/08/2014 18:00:00 DIS Emergency YADIRA BERNAL MD [facility] ER R ARM ABCESS [id number] 09/30/2014 17:52:00 09/30/2014 18:00:00 DIS Emergency ARTEMIO MONTES PRECISION INSPECTOR [facility] ER RASH/POSS POISON WILI [id number] 07/12/2014 22:25:00 07/12/2014 23:46:00 DIS Emergency ALPHONSO REYNOLDS DO [facility] ER CHEST PAIN [id number] 05/11/2014 17:23:00 05/11/2014 23:59:59 CLS Outpatient JOHANNA DOTY MD [facility] SDC FOREIGN BODY [id number] 04/29/2014 20:39:00 04/29/2014 23:08:00 DIS Emergency ALPHONSO REYNOLDS DO [facility] ER INSECT BITE/STING [id number] 03/04/2014 22:54:00 03/05/2014 00:37:00 DIS Emergency ANDIE MCCRAY MD [facility] ER BODY ACHE [id number] 02/10/2014 21:52:00 02/10/2014 22:13:00 DIS Emergency JESSICA BATEAMN, BIRGIT Gill [facility] ER POSS SPIDER BITE R KNEE [id number] 03/17/2013 08:06:00 03/17/2013 10:25:00 DIS Emergency GABE BATEMAN, YADIRA Sheikh [facility] ER LEFT SIDE/ABD PAIN [id number] 02/12/2013 13:49:00 02/14/2013 18:35:00 DIS Inpatient BRENNER MARIPOSA K [facility] 4TH CELLULITIS [id number] 11/01/2012 09:30:00 01/16/2013 00:01:00 DIS Outpatient PEDRO BATEMAN, OLVIN Romero [facility] WOUNDCARE PERISCROTAL ABSCESS [id number] 11/30/2012 23:07:00 12/01/2012 03:19:00 DIS Emergency GAIL DO ALPHONSO K [facility] ER RT HAND RING FINGER ABSCESS [id number] 11/24/2012 00:23:00 11/24/2012 01:08:00 DIS Emergency MAHENDRA BATEMAN, ANDIE Choudhary [facility] ER ACID REFLUX [id number] 10/12/2012 23:30:00 10/13/2012 19:20:00 DIS Outpatient PEDRO BATEMAN, OLVIN Romero [facility] SDC PERISCROTAL ABSCESS [id number] 01/17/2013 11:15:00 Document Registration [id number] 10/17/2011 13:43:00 Document Registration [id number] 06/21/2011 12:44:00 Document Registration [id number] 06/17/2011 10:02:00 Document Registration [id number] 02/05/2011 17:07:00 Document Registration [id number] 03/13/2010 09:48:00 Document Registration [id number] 03/11/2010 23:27:00 Document Registration [id number] 01/25/2010 21:30:00 Document Registration
--- NOTE | 2018-06-13 16:29 | ED Abdominal Pain ---
General Chief Complaint: General Problems/Pain Stated Complaint: STRANGE FEELING IN ABD Nursing Triage Note: ARRIVED VIA AMB TO ROOM 07. STATES HE HAS FELT A PULSATION ON THE LEFT SIDE OF HIS ABD X2 DAYS. Sepsis Screen: No Definite Risk Source of Information: Patient Exam Limitations: No Limitations History of Present Illness Date Seen by Provider: Jun 13, 2018 Time Seen by Provider: 16:27 Initial Comments To ER with reports of a pulsating sensation in the left upper abdomen. He states this is been present for 2-3 days. He denies any nausea vomiting fevers or chills. States that he recently had a bone marrow biopsy by Dr. 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/08) Home Medications Acetaminophen 500 Mg Tablet, 1,000 MG PO Q6H PRN for PAIN-MILD, (Reported) TAKES 2 (500MG) TABLETS Amoxicillin 500 Mg Capsule, 500 MG PO TID Prescribed by: AZALIA CHANDLER on 03/05/181925 Doxycycline Hyclate 100 Mg Tablet, 100 MG PO BID@07,17 Prescribed by: REDDY ROQUE on 10/26/17 1034 Hydrocodone/Acetaminophen 1 Each Tablet, 1 TAB PO Q6H PRN for PAIN-MODERATE, ( Reported) Multivits-Minerals/FA/Lycopene 1 Each Capsule, 1 CAP PO DAILY, (Reported) Pantoprazole Sodium 40 Mg Tablet.dr, 40 MG PO DAILY Hold this medication until labs repeated Prescribed by: REDDY ROQUE on 10/26/17 1034 Sucralfate 1 Gm Tablet, 1 GM PO ACHS, (Reported) Patient Home Medication List Home Medication List Reviewed: Yes Review of Systems Review of Systems Constitutional: see HPI EENTM: No Symptoms Reported Respiratory: No Symptoms Reported Cardiovascular: No Symptoms Reported Gastrointestinal: See HPI, Abdominal Pain Genitourinary: No Symptoms Reported Musculoskeletal: no symptoms reported Skin: no symptoms reported Psychiatric/Neurological: No Symptoms Reported Endocrine: No Symptoms Reported Past Xwoqpsj-Inprcp-Yrowow Hx Patient Social History Alcohol Use: Denies Use Recreational Drug Use: No Smoking Status: Never a Smoker Recent Foreign Travel: No Contact w/Someone Who Travel: No Recent Infectious Disease Expo: No Recent Hopitalizations: No Immunizations Up To Date Tetanus Booster (TDap): Less than 5yrs PED Vaccines UTD: Yes Seasonal Allergies Seasonal Allergies: No Past Medical History Surgeries: Yes (PERIRECTAL ABSCESS; SPHINCTEROTOMY; EGD/COLONOSCOPY) Appendectomy Respiratory: No Currently Using CPAP: No Currently Using BIPAP: No Cardiac: Yes Heart Murmur, Hypertension Neurological: No Reproductive Disorders: No Sexually Transmitted Disease: No HIV/AIDS: No Genitourinary: No Gastrointestinal: Yes (RECTAL BLEEDING, HX POLYPS; PERIRECTAL ABSCESS) Gastroesophageal Reflux, Chronic Diarrhea, Polyps, Hiatal Hernia Musculoskeletal: Yes Arthritis, Fractures Endocrine: No (OBESITY) Loss of Vision: Denies Hearing Impairment: Denies Cancer: Yes (TOD CELL LEUKEMIA) Leukemia Did You Recieve Any Treatments: Yes What Type of Treatment Did You: Chemotherapy Psychosocial: No Integumentary: No Blood Disorders: No Adverse Reaction/Blood Tranf: No Family Medical History Cardiovascular disease 19 FATHER 19 MOTHER (bipass surgery) Diabetes mellitus 19 MOTHER Hypertension 19 FATHER Myocardial infarction 19 FATHER ( at age 46 from [place]) Heart Disease, Diabetes Physical Exam Vital Signs Vital Signs - First Documented 06/13/18 15:42 Temp 98.0 Pulse 106 Resp 16 B/P (MAP) 145/101 (116) Pulse Ox 96 O2 Delivery Room Air Capillary Refill : Less Than 3 Seconds Height/Weight/BMI Height: 5'9.00" Weight: 260lbs. 13.8oz. 117.701652vm; 39.6 BMI Method:Stated General Appearance: WD/WN, no apparent distress, obese HEENT: PERRL/EOMI, normal ENT inspection Respiratory: no respiratory distress, no accessory muscle use Cardiovascular: regular rate, rhythm, no murmur Gastrointestinal: normal bowel sounds, non tender, soft, other (no palpable pulsatile mass) Extremities: normal range of motion, non-tender Neurologic/Psychiatric: alert, normal mood/affect, oriented x 3 Skin: normal color, warm/dry Progress/Results/Core Measures Results/Orders My Orders Orders - MONTES,PETER J MARKETING REP Iv Heplock-Insert (Order) (06/13/18 16:25) Ct Abdomen/Pelvis W (06/13/18 16:25) Azithromycin Tablet (Zithromax Tablet) (06/13/18 16:30) Vital Signs/I&O 06/13/18 15:42 Temp 98.0 Pulse 106 Resp 16 B/P (MAP) 145/101 (116) Pulse Ox 96 O2 Delivery Room Air Blood Pressure Mean: 116 Departure Impression Primary Impression: Nonspecific abdominal symptom Disposition: HOME, SELF-CARE Condition: Stable Departure-Patient Inst. Decision time for Depature: 17:56 Referrals: [facility] (PCP) Primary Care Physician AMY HALEY (Family) Primary Care Physician Patient Instructions: General (DC) Add. Discharge Instructions: All discharge instructions reviewed with patient and/or family. Voiced understanding. ARTEMIO MONTES APRN Jun 13, 2018 16:29
[2018-06-13] MEDS ORDERED: AZITHROMYCIN 250 MG TAB (ZITHROMAX) PO SCH (16:30)
--- NOTE | 2018-06-13 18:10 | Diagnostic Imaging Report ---
PROCEDURE: CT abdomen and pelvis with contrast. TECHNIQUE: Multiple contiguous axial images were obtained through the abdomen and pelvis after administration of intravenous contrast. INDICATION: Abdominal pain. Pulsation in the left side of the abdomen. The CTA chest, abdomen and pelvis exam of 10/25/2017 failed to show any sign of a pulmonary embolus or of an aneurysm of the aorta. On this study, the abdominal aorta is not abnormally dilated. There is no sign of a dissection. The previous study did note hepatosplenomegaly and upper abdominal lymphadenopathy. On the prior exam, the spleen measured 25 cm in length. On this study however the spleen is much less prominent measuring 17.1 cm in length. On the previous study, the liver measured approximately 22 cm in length. On this study it measures roughly 23.5 cm. The lymphadenopathy noted on the prior exam is not as conspicuous on this study. 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 The pancreas, adrenals, kidneys, gallbladder and inferior vena cava are unremarkable for an acute abnormality. The stomach is not well-distended and consequently difficult to assess. There is no pelvic mass or free fluid collection. The urinary bladder and prostate gland are grossly unremarkable. The appendix was not well-visualized but there are no indirect signs of acute appendicitis. The bone windows show no evidence for a fracture or for a destructive lesion. The lung bases are clear. IMPRESSION: 1. There is no acute abnormality of the abdomen or pelvis. In particular, there is no sign of an aortic dissection or of an aortic aneurysm. 2. The splenomegaly noted on the prior exam has decreased. The lymphadenopathy noted previously is also much less prominent than on the prior study. There is still persistent mild hepatomegaly. This is essentially no different than on the prior exam. 3. These results were discussed with Kevin Pinedo APRN. Dictated by: Dictated on workstation # [id number]
[2018-06-13 18:18] VITALS: BP 137/101
== END 2018-06-13 18:18 | disposition home or self-care (01) ==
LOC: EDUNIT# 15:32 → ER 15:34
DX: R10.12 Left upper quadrant pain (principal); I10 Essential (primary) hypertension; K21.9 Gastro-esophageal reflux disease without esophagitis; E66.9 Obesity, unspecified; Z85.6 Personal history of leukemia; Z92.21 Personal history of antineoplastic chemotherapy; Z82.49 Family history of ischemic heart disease and other diseases of the circulatory system; Z68.39 Body mass index [BMI] 39.0-39.9, adult; Z87.19 Personal history of other diseases of the digestive system; Z86.010 Personal history of colon polyps; Z88.5 Allergy status to narcotic agent; Z90.89 Acquired absence of other organs; Z90.49 Acquired absence of other specified parts of digestive tract
CPT/HCPCS: 74177; 99281

== ENCOUNTER 2018-06-23 08:43 | Outpatient (RCR) | payer OTHER ==
[2018-04-11 14:36] LABS: BASOPHILS % (AUTO) 0 % (0-10); EOSINOPHILS # (AUTO) 0.2 10^3/uL (0.0-0.3); EOSINOPHILS % (AUTO) 2 % (0-10); HEMATOCRIT 45 % (40-54); HEMOGLOBIN 15.6 G/DL (13.3-17.7); LYMPHOCYTES # (AUTO) 1.5 X 10^3 (1.0-4.0); LYMPHOCYTES % (AUTO) 22 % (12-44); MEAN CORPUSCULAR HEMOGLOBIN 29 PG (25-34); MEAN CORPUSCULAR HGB CONC 35 G/DL (32-36); MEAN CORPUSCULAR VOLUME 83 FL (80-99); MEAN PLATELET VOLUME 10.4 FL (7.4-10.4); MONOCYTES # (AUTO) 0.6 X 10^3 (0.0-1.0); MONOCYTES % (AUTO) 8 % (0-12); NEUTROPHILS # (AUTO) 4.7 X 10^3 (1.8-7.8); NEUTROPHILS % (AUTO) 68 % (42-75); PLATELET COUNT 175 10^3/uL (130-400); RED BLOOD COUNT 5.35 10^6/uL (4.35-5.85); RED CELL DISTRIBUTION WIDTH 13.3 % (10.0-14.5); WHITE BLOOD COUNT 6.9 10^3/uL (4.3-11.0)
[2018-04-11 14:52] LABS: ALANINE AMINOTRANSFERASE 25 U/L (0-55); ALBUMIN 4.4 GM/DL (3.2-4.5); ALKALINE PHOSPHATASE 103 U/L (40-136); BILIRUBIN,TOTAL 0.4 MG/DL (0.1-1.0); BUN/CREATININE RATIO 16; CALCIUM 9.7 MG/DL (8.5-10.1); CARBON DIOXIDE 23 MMOL/L (21-32); CHLORIDE 104 MMOL/L (98-107); CREATININE SERUM 0.91 MG/DL (0.60-1.30); GFR ESTIMATED > 60; GLUCOSE 101 MG/DL (70-105); SODIUM 140 MMOL/L (135-145); TOTAL PROTEIN 7.8 GM/DL (6.4-8.2)
[2018-06-02 11:11] LABS: ABSOLUTE RETIC # 90 10e9/L (24-90); BASOPHILS % (AUTO) 1 % (0-10); EOSINOPHILS # (AUTO) 0.1 10^3/uL (0.0-0.3); EOSINOPHILS % (AUTO) 2 % (0-10); HEMATOCRIT 46 % (40-54); HEMOGLOBIN 15.7 G/DL (13.3-17.7); LYMPHOCYTES # (AUTO) 1.6 X 10^3 (1.0-4.0); LYMPHOCYTES % (AUTO) 27 % (12-44); MEAN CORPUSCULAR HEMOGLOBIN 29 PG (25-34); MEAN CORPUSCULAR HGB CONC 35 G/DL (32-36); MEAN CORPUSCULAR VOLUME 85 FL (80-99); MEAN PLATELET VOLUME 10.3 FL (7.4-10.4); MONOCYTES # (AUTO) 0.5 X 10^3 (0.0-1.0); MONOCYTES % (AUTO) 8 % (0-12); NEUTROPHILS # (AUTO) 3.7 X 10^3 (1.8-7.8); NEUTROPHILS % (AUTO) 63 % (42-75); PLATELET COUNT 157 10^3/uL (130-400); RED BLOOD COUNT 5.37 10^6/uL (4.35-5.85); RED CELL DISTRIBUTION WIDTH 13.4 % (10.0-14.5); RETICULOCYTE % 1.67 % (0.50-2.40); WHITE BLOOD COUNT 5.9 10^3/uL (4.3-11.0)
[2018-06-02 11:34] LABS: ALANINE AMINOTRANSFERASE 24 U/L (0-55); ALBUMIN 4.6 GM/DL (3.2-4.5); ALKALINE PHOSPHATASE 109 U/L (40-136); BILIRUBIN,TOTAL 0.5 MG/DL (0.1-1.0); BUN/CREATININE RATIO 21; CALCIUM 10.1 MG/DL (8.5-10.1); CARBON DIOXIDE 24 MMOL/L (21-32); CHLORIDE 106 MMOL/L (98-107); CREATININE SERUM 0.86 MG/DL (0.60-1.30); GFR ESTIMATED > 60; GLUCOSE 98 MG/DL (70-105); POTASSIUM 3.9 MMOL/L (3.6-5.0); SODIUM 140 MMOL/L (135-145); TOTAL PROTEIN 7.9 GM/DL (6.4-8.2)
[2018-06-02 11:56] LABS: BAND NEUTROPHILS 0 %; BASOPHILS % (MANUAL) 0 %; EOSINOPHILS % (MANUAL) 1 %; LYMPHOCYTES % (MANUAL) 25 %; MONOCYTES % (MANUAL) 8 %; NEUTROPHILS % (MANUAL) 66 %; RBC MORPH NORMAL
== END 2018-07-10 | disposition home or self-care (01) ==
LOC: ONC 08:43
PROVIDERS: ATTEND Internal Medicine Hematology & Oncology
DX: D61.818 Other pancytopenia (principal); R16.1 Splenomegaly, not elsewhere classified; R59.0 Localized enlarged lymph nodes; K21.0 Gastro-esophageal reflux disease with esophagitis; E66.9 Obesity, unspecified; Z68.39 Body mass index [BMI] 39.0-39.9, adult; Z23 Encounter for immunization
CPT/HCPCS: 36415; 38222; 80053; 83615; 85007; 85025; 85027; 85045; 88184; 88185; 88237; 88264; 88280; 88305; 88311; 88313; 90471; 90686; 99213

== ENCOUNTER 2018-07-18 09:31 | Emergency (ER) | payer OTHER ==
[~2018-07-18] VITALS: Ht 175.3 cm; Wt 120.2 kg
[2018-07-18] MEDS ORDERED: FAMOTIDINE 20 MG (PEPCID) TABLET PO STA (10:00)
[2018-07-18] MEDS ORDERED: LIDOCAINE 2% VISCOUS 15 ML UDC PO ONE (10:00)
[2018-07-18] MEDS ORDERED: ANTACID SUSP 30 ML UDC (MYLANTA) PO ONE (10:00)
[2018-07-18] MEDS ORDERED: ASPIRIN 81 MG CHEW (CHILDREN'S ASA) PO ONE (10:00)
--- NOTE | 2018-07-18 10:07 | ED Chest Pain ---
General Chief Complaint: Chest Pain Stated Complaint: CHEST PAIN Source: patient, spouse Exam Limitations: no limitations History of Present Illness Date Seen by Provider: Jul 18, 2018 Time Seen by Provider: 09:50 Initial Comments Patient resents to ER by private conveyance with chief complaint the last 3 days she's been having some intermittent chest pain feels burning in sensation right down the middle. He thinks been his acid reflux. He does take Protonix routinely. He has not taken any antacids otherwise. He does not have a history of coronary artery disease or familial early onset coronary artery disease. He does not have hypertension, hypothyroidism, diabetes, smoking, hyperlipidemia. He does have a history of leukemia been in remission since May. He had an ultrasound by Dr. Vera and has follow-up in September but the only thing he noted was some mild left ventricular enlargement. No shortness of breath cough fevers chills nausea sweats. Pain does not radiate. 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/08) Home Medications Acetaminophen 500 Mg Tablet, 1,000 MG PO Q6H PRN for PAIN-MILD, (Reported) TAKES 2 (500MG) TABLETS Amoxicillin 500 Mg Capsule, 500 MG PO TID Prescribed by: AZALIA CHANDLER on 03/05/18 192 Doxycycline Hyclate 100 Mg Tablet, 100 MG PO BID@07,17 Prescribed by: REDDY ROQUE on 10/26/17 1034 Hydrocodone/Acetaminophen 1 Each Tablet, 1 TAB PO Q6H PRN for PAIN-MODERATE, ( Reported) Multivits-Minerals/FA/Lycopene 1 Each Capsule, 1 CAP PO DAILY, (Reported) Pantoprazole Sodium 40 Mg Tablet.dr, 40 MG PO DAILY Hold this medication until labs repeated Prescribed by: REDDY ROQUE on 10/26/17 1034 Sucralfate 1 Gm Tablet, 1 GM PO ACHS, (Reported) Sucralfate 1 Gm Tablet, 1 GM PO QIDACHS Prescribed by: AZALIA CHANDLER on 07/18/18 1142 Patient Home Medication List Home Medication List Reviewed: Yes Review of Systems Review of Systems Constitutional: No chills, No diaphoresis EENTM: No Blurred Vision, No Double Vision Respiratory: Denies Cough, Denies Orthopnea, Denies Shortness of Air Cardiovascular: See HPI, Chest Pain, Edema; Denies Irregular Heart Rate; Palpitations Gastrointestinal: Denies Abdomen Distended, Denies Abdominal Pain, Denies Nausea Genitourinary: Denies Burning, Denies Discharge Musculoskeletal: No back pain, No joint pain Skin: No pruritus, No rash Past Gunfkdw-Edlypk-Pldaco Hx Patient Social History Alcohol Use: Denies Use Recreational Drug Use: No Smoking Status: Never a Smoker Recent Hopitalizations: No Immunizations Up To Date Tetanus Booster (TDap): Less than 5yrs PED Vaccines UTD: Yes Seasonal Allergies Seasonal Allergies: No Past Medical History Surgeries: Yes (PERIRECTAL ABSCESS; SPHINCTEROTOMY; EGD/COLONOSCOPY) Appendectomy Respiratory: No Currently Using CPAP: No Currently Using BIPAP: No Cardiac: Yes Heart Murmur, Hypertension Neurological: No Reproductive Disorders: No Sexually Transmitted Disease: No HIV/AIDS: No Genitourinary: No Gastrointestinal: Yes (RECTAL BLEEDING, HX POLYPS; PERIRECTAL ABSCESS) Gastroesophageal Reflux, Chronic Diarrhea, Polyps, Hiatal Hernia Musculoskeletal: Yes Arthritis, Fractures Endocrine: No (OBESITY) Loss of Vision: Denies Hearing Impairment: Denies Cancer: Yes (TOD CELL LEUKEMIA) Leukemia Did You Recieve Any Treatments: Yes What Type of Treatment Did You: Chemotherapy Psychosocial: No Integumentary: No Blood Disorders: No Adverse Reaction/Blood Tranf: No Family Medical History Cardiovascular disease 19 FATHER 19 MOTHER (bipass surgery) Diabetes mellitus 19 MOTHER Hypertension 19 FATHER Myocardial infarction 19 FATHER ( at age 46 from [place]) Heart Disease, Diabetes Physical Exam Vital Signs Vital Signs - First Documented Capillary Refill : Less Than 3 Seconds Height, Weight, BMI Height: 5'9.00" Weight: 260lbs. 13.8oz. 117.423516cy; 39.6 BMI Method:Stated General Appearance: No Apparent Distress, WD/WN HEENT: PERRL/EOMI, Pharynx Normal, Moist Mucous Membranes Neck: Full Range of Motion, Normal Inspection Respiratory: Chest Non Tender, Lungs Clear, Normal Breath Sounds, No Accessory Muscle Use, No Respiratory Distress Cardiovascular: Regular Rate, Rhythm, No Gallop, No Murmur, Normal Peripheral Pulses, Other (trace bilateral ankle edema) Gastrointestinal: Normal Bowel Sounds, Non Tender, Soft Extremity: Normal Capillary Refill, Normal Inspection, Non Tender Neurologic/Psychiatric: Alert, Oriented x3 Skin: Normal Color, Warm/Dry Progress/Results/Core Measures Results/Orders Lab Results Laboratory Tests Test 07/18/18 09:48 07/18/18 11:34 Range/Units White Blood Count 5.6 4.3-11.0 10^3/uL Red Blood Count 5.47 4.35-5.85 10^6/uL Hemoglobin 16.4 13.3-17.7 G/DL Hematocrit 46 40-54 % Mean Corpuscular Volume 85 80-99 FL Mean Corpuscular Hemoglobin 30 25-34 PG Mean Corpuscular Hemoglobin Concent 36 32-36 G/DL Red Cell Distribution Width 12.9 10.0-14.5 % Platelet Count 166 130-400 10^3/uL Mean Platelet Volume 11.0 H 7.4-10.4 FL Neutrophils (%) (Auto) 66 42-75 % Lymphocytes (%) (Auto) 26 12-44 % Monocytes (%) (Auto) 7 0-12 % Eosinophils (%) (Auto) 2 0-10 % Basophils (%) (Auto) 0 0-10 % Neutrophils # (Auto) 3.7 1.8-7.8 X 10^3 Lymphocytes # (Auto) 1.4 1.0-4.0 X 10^3 Monocytes # (Auto) 0.4 0.0-1.0 X 10^3 Eosinophils # (Auto) 0.1 0.0-0.3 10^3/uL Basophils # (Auto) 0.0 0.0-0.1 10^3/uL Prothrombin Time 13.2 12.2-14.7 SEC INR Comment 1.0 0.8-1.4 Activated Partial Thromboplast Time 29 24-35 SEC Sodium Level 141 135-145 MMOL/L Potassium Level 4.0 3.6-5.0 MMOL/L Chloride Level 104 98-107 MMOL/L Carbon Dioxide Level 25 21-32 MMOL/L Anion Gap 12 5-14 MMOL/L Blood Urea Nitrogen 14 7-18 MG/DL Creatinine 0.81 0.60-1.30 MG/DL Estimat Glomerular Filtration Rate > 60 BUN/Creatinine Ratio 17 Glucose Level 99 70-105 MG/DL Calcium Level 9.7 8.5-10.1 MG/DL Corrected Calcium 8.5-10.1 MG/DL Magnesium Level 2.2 1.8-2.4 MG/DL Total Bilirubin 0.8 0.1-1.0 MG/DL Aspartate Amino Transf (AST/SGOT) 27 5-34 U/L Alanine Aminotransferase (ALT/SGPT) 33 0-55 U/L Alkaline Phosphatase 120 40-136 U/L Myoglobin 29.3 10.0-92.0 NG/ML Troponin I < 0.028 < 0.028 <0.028 NG/ML Total Protein 7.8 6.4-8.2 GM/DL Albumin 4.7 H 3.2-4.5 GM/DL Lipase 38 8-78 U/L My Orders Orders - AZALIA CHANDLER Cbc With Automated Diff (07/18/18 10:00) Magnesium (07/18/18 10:00) Chest 1 View, Ap/Pa Only (07/18/18 10:00) Ekg Tracing (07/18/18 10:00) Cardiac Profile 1 (07/18/18 10:00) Comprehensive Metabolic Panel (07/18/18 10:00) Myoglobin Serum (07/18/18 10:00) Protime With Inr (07/18/18 10:00) Partial Thromboplastin Time (07/18/18 10:00) O2 (07/18/18 10:00) Monitor-Rhythm Ecg Trace Only (07/18/18 10:00) Lipid Panel (07/19/18 06:00) Aspirin Chewable Tablet (Baby Aspirin Ch (07/18/18 10:00) Saline Lock/Iv-Start (07/18/18 10:00) Lipase (07/18/18 10:00) Lidocaine 2% Viscous 15 Ml (Xylocaine Vi (07/18/18 10:00) Famotidine Tablet (Pepcid Tablet) (07/18/18 10:00) Antacid Suspension (Mylanta Suspension (07/18/18 10:00) Troponin I (07/18/18 11:33) Medications Given in ED Current Medications Medications Dose Ordered Sig/Pablo Route Start Time Stop Time Status Last Admin Dose Admin Al Hydrox/Mg Hydrox/Simethicone 30 ml ONCE ONCE PO 07/18/18 10:00 07/18/18 10:03 DC 07/18/18 10:11 30 ML Aspirin 324 mg ONCE ONCE PO 07/18/18 10:00 07/18/18 10:03 DC 07/18/18 10:11 324 MG Lidocaine HCl 15 ml ONCE ONCE PO 07/18/18 10:00 07/18/18 10:03 DC 07/18/18 10:11 15 ML Vital Signs/I&O 07/18/18 07/18/18 09:32 09:32 Temp 98.7 Pulse 76 Resp 18 B/P (MAP) 121/79 (93) Pulse Ox 98 O2 Delivery Room Air Room Air Progress Progress Note #1: Time: 10:05 Progress Note Patient is having some what sounds like GERD for the last 3 days. Since it is episodic and its been going on for now 6 hours single troponin could be useful enough to rule out coronary artery disease. We can have him follow-up with Dr. Vera. We'll also give him a GI cocktail get a chest x-ray etc. We'll give him some aspirin. Echocardiogram by Dr. Vera July 2017: 60-65% EF and grade 2 diastolic dysfunction. ED ACS 8 points. Low risk by the EDACS Score. If the patient also has: (1) EKG without new ischemic changes and (2) negative initial and 2-hour troponins, then this patient is safe for discharge to early outpatient follow-up investigation (or proceed to earlier inpatient testing). If EKG with ischemic changes or positive troponin, they are not low risk and require normal risk stratification. Progress Note #2: Time: 11:39 Progress Note GI cocktail improved his symptoms significantly. He already has follow-up with Dr. Ludwig for his hiatal hernia. He's had recent EGDs. We'll let him follow this up outpatient. We'll do a delta troponin and if it's negative he can go with follow-up with Dr. Vera. Initial ECG Impression Date: Jul 18, 2018 Initial ECG Impression Time: 09:32 Initial ECG Rate: 81 Initial ECG Rhythm: Normal Sinus Initial ECG Intervals: Normal Initial ECG Impression: Normal, Nonspecific Changes Initial ECG Comparisson: Unchanged Comment Poorly defined P waves but does appear to be in normal sinus rhythm. No ST changes. Diagnostic Imaging Diagonstic Imaging: Xray Plain Films/CT/US/NM/MRI: chest (1v) Comments NAME: JOEL VAZQUEZ [facility] REC#: [id number] PHYSICIAN: AZALIA CHANDLER MD CC: ADITYA ENRIQUEZ MD; AZALIA CHANDLER Page 1 of 1 RADIOLOGY REPORT [facility], [facility]. [place], [place] CC: ADITYA ENRIQUEZ MD; AZALIA CHANDLER Page 1 of 1 RADIOLOGY REPORT NAME: JOEL VAZQUEZ [facility] REC#: [id number] PT STATUS: REG ER : 1975 PHYSICIAN: AZALIA CHANDLER MD ADMIT DATE: 07/18/18/ER Signed Date of Exam: 07/18/18 CHEST 1 VIEW, AP/PA ONLY INDICATION: Chest pain. EXAMINATION: A PA chest was obtained at 1016 hours. FINDINGS: The heart and mediastinal silhouette are normal in appearance. The lungs are clear. There is no pneumothorax or pleural fluid. IMPRESSION: No acute process in the chest. Dictated by: Dictated on workstation # [id number] Dict: 07/18/18 1030 Trans: 07/18/18 1055 Interpreted by: ADITYA ENRIQUEZ MD Electronically signed by: ADITYA ENRIQUEZ MD 07/18/18 1055 Reviewed: Reviewed by Me Departure Impression Primary Impression: GERD (gastroesophageal reflux disease) Qualified Codes: K21.0 - Gastro-esophageal reflux disease with esophagitis Disposition: HOME, SELF-CARE Condition: Improved Departure-Patient Inst. Decision time for Depature: 12:10 Referrals: [facility] [place] (PCP) Primary Care Physician AMY HALEY (Family) Primary Care Physician MARIAJOSE LUDWIG BASHAR J MD Patient Instructions: Acid Reflux (Gastroesophageal Reflux Disease), Adult (DC) Add. Discharge Instructions: Your chest pain seems to be from your acid reflux and will plan to put you on the Protonix or already on as well as some Carafate for 2 weeks to help calm it down. Carafate should be taken half hour before meals and then one at bedtime. It can be chewed, swallowed or dissolved in water. Keep your follow-up plans with Dr. Ludwig. If you continue to have chest pain you may follow-up with Dr. Vera outpatient. All discharge instructions reviewed with patient and/or family. Voiced understanding. Scripts Sucralfate (Carafate) 1 Gm Tablet 1 GM PO QIDACHS for 14 Days, #56 TAB 0 Refills Prov: AZALIA CHANDLER 07/18/18 Work/School Note: Work Release Form Date Seen in the Emergency Department: Jul 18, 2018 Return to Work: Jul 19, 2018 Restrictions: No Restrictions AZALIA CHANDLER Jul 18, 2018 10:07
[2018-07-18 10:29] LABS: BASOPHILS % (AUTO) 0 % (0-10); EOSINOPHILS # (AUTO) 0.1 10^3/uL (0.0-0.3); EOSINOPHILS % (AUTO) 2 % (0-10); HEMATOCRIT 46 % (40-54); HEMOGLOBIN 16.4 G/DL (13.3-17.7); LYMPHOCYTES # (AUTO) 1.4 X 10^3 (1.0-4.0); LYMPHOCYTES % (AUTO) 26 % (12-44); MEAN CORPUSCULAR HEMOGLOBIN 30 PG (25-34); MEAN CORPUSCULAR HGB CONC 36 G/DL (32-36); MEAN CORPUSCULAR VOLUME 85 FL (80-99); MONOCYTES # (AUTO) 0.4 X 10^3 (0.0-1.0); MONOCYTES % (AUTO) 7 % (0-12); NEUTROPHILS # (AUTO) 3.7 X 10^3 (1.8-7.8); NEUTROPHILS % (AUTO) 66 % (42-75); PLATELET COUNT 166 10^3/uL (130-400); RED CELL DISTRIBUTION WIDTH 12.9 % (10.0-14.5); WHITE BLOOD COUNT 5.6 10^3/uL (4.3-11.0)
[2018-07-18 10:30] LABS: PROTHROMBIN TIME PATIENT 13.2 SEC (12.2-14.7)
--- NOTE | 2018-07-18 10:33 | Diagnostic Imaging Report ---
INDICATION: Chest pain. EXAMINATION: A PA chest was obtained at 1016 hours. FINDINGS: The heart and mediastinal silhouette are normal in appearance. The lungs are clear. There is no pneumothorax or pleural fluid. IMPRESSION: No acute process in the chest. Dictated by: Dictated on workstation # [id number]
[2018-07-18 10:42] LABS: ALANINE AMINOTRANSFERASE 33 U/L (0-55); ALBUMIN 4.7 GM/DL (3.2-4.5); ALKALINE PHOSPHATASE 120 U/L (40-136); BILIRUBIN,TOTAL 0.8 MG/DL (0.1-1.0); BUN/CREATININE RATIO 17; CALCIUM 9.7 MG/DL (8.5-10.1); CARBON DIOXIDE 25 MMOL/L (21-32); CHLORIDE 104 MMOL/L (98-107); CREATININE SERUM 0.81 MG/DL (0.60-1.30); GFR ESTIMATED > 60; GLUCOSE 99 MG/DL (70-105); LIPASE 38 U/L (8-78); MAGNESIUM 2.2 MG/DL (1.8-2.4); SODIUM 141 MMOL/L (135-145); TOTAL PROTEIN 7.8 GM/DL (6.4-8.2)
[2018-07-18 10:49] LABS: MYOGLOBIN SERUM 29.3 NG/ML (10.0-92.0)
[2018-07-18] MEDS ORDERED: SUCR1TAB36 PO (11:42)
[2018-07-18 12:35] VITALS: BP 116/93
== END 2018-07-18 12:38 | disposition home or self-care (01) ==
LOC: EDUNIT# 09:31 → ER 09:32
DX: K21.9 Gastro-esophageal reflux disease without esophagitis (principal); I10 Essential (primary) hypertension; E66.9 Obesity, unspecified; Z92.21 Personal history of antineoplastic chemotherapy; Z82.49 Family history of ischemic heart disease and other diseases of the circulatory system; Z68.39 Body mass index [BMI] 39.0-39.9, adult; Z87.19 Personal history of other diseases of the digestive system; Z86.010 Personal history of colon polyps; Z85.6 Personal history of leukemia; Z90.49 Acquired absence of other specified parts of digestive tract; Z98.890 Other specified postprocedural states; Z88.8 Allergy status to other drugs, medicaments and biological substances; Z88.5 Allergy status to narcotic agent
CPT/HCPCS: 36415; 71045; 80053; 83690; 83735; 83874; 84484; 85025; 85610; 85730; 93005; 93041

== ENCOUNTER → 2018-07-22 | Outpatient (CLI) | payer OTHER ==
--- NOTE | 2018-07-22 10:04 | Diagnostic Imaging Report ---
PROCEDURE: US Gallbladder. TECHNIQUE: Multiple real-time grayscale images were obtained over the right upper quadrant in various projections. INDICATION: Epigastric abdominal pain. FINDINGS: There is some increased echogenicity of the liver compatible with fatty infiltration. There is no intrahepatic biliary ductal dilatation. Common bile duct is no well visualized. There is no cholelithiasis, gallbladder wall thickening or pericholecystic fluid. Pancreas is largely obscured due to bowel gas. Right kidney is normal in appearance. There is no ascites. IMPRESSION: Fatty infiltration of the liver otherwise unremarkable right upper quadrant ultrasound. Dictated by: Dictated on workstation # [id number]
== END ==
LOC: RAD 08:05
PROVIDERS: ATTEND Surgery
DX: K76.0 Fatty (change of) liver, not elsewhere classified (principal)
CPT/HCPCS: 76705

== ENCOUNTER → 2018-08-01 | Outpatient (CLI) | payer OTHER ==
[~2018-08-01] MED LIST changes: +CATHETER FLUSH 10 ML SYR IV PRN
--- NOTE | 2018-08-01 12:35 | Diagnostic Imaging Report ---
INDICATION: Epigastric abdominal pain. Correlation study: 10/22/2017 FINDINGS: The patient was administered 5.43 mCi of Tc 99m Choletec and sequential imaging was performed over the right upper abdomen. There is progressive, homogeneous accumulation of radiotracer within the liver parenchyma. There is filling of the bile ducts and subsequent filling of the gallbladder. There is progressive clearance of activity from the liver parenchyma and accumulation of radiotracer within loops of small bowel. The patient was then administered a fatty meal, utilizing 8 ounces of Ensure. The gallbladder ejection fraction was calculated to be approximately 57%. (Normal values post fatty meal stimulation are 33% or greater.) IMPRESSION: 1. Hepatobiliary scan demonstrates a patent biliary tree. 2. Normal gallbladder ejection fraction of approximately 57%. Dictated by: Dictated on workstation # [id number]
== END ==
LOC: CARD 09:21
PROVIDERS: ATTEND Surgery
DX: R10.13 Epigastric pain (principal)
CPT/HCPCS: 78227

== ENCOUNTER 2018-08-05 05:50 | Outpatient (CLI) | payer OTHER ==
[~2018-08-05] VITALS: Ht 175.3 cm; Wt 120.2 kg
== END 2018-08-05 16:01 | disposition home or self-care (01) ==
LOC: PREOP 05:50
PROVIDERS: ATTEND Surgery
DX: Z01.818 Encounter for other preprocedural examination (principal)

== ENCOUNTER 2018-08-09 07:26 | Day surgery (SDC) | payer OTHER ==
[~2018-08-09] VITALS: Ht 175.3 cm; Wt 120.2 kg
[~2018-08-09 07:26] MED LIST changes: -CATHETER FLUSH 10 ML SYR IV PRN; +PANT40TA3 PO
[2018-08-09] MEDS ORDERED: LACTATED RINGERS 1,000 ML IV ONE (07:38)
[2018-08-09] MEDS ORDERED: LACTATED RINGERS 1,000 ML IV STA (07:38)
[2018-08-09] MEDS ORDERED: HURRICAINE EXT TUBE (BENZOCAINE) XX PRN (07:45)
[2018-08-09 07:53] VITALS: BP 129/86
--- NOTE | 2018-08-09 08:17 | Progress Note-Pre Operative ---
Pre-Operative Progress Note H&P Reviewed The H&P was reviewed, patient examined and no changes noted. Date Seen by Provider: Aug 09, 2018 Time Seen by Provider: 08:16 Date H&P Reviewed: Aug 09, 2018 Time H&P Reviewed: 08:16 Pre-Operative Diagnosis: bright red blood in stool, epigastric abdominal pain MARIAJOSE LUDWIG DO Aug 09, 2018 08:17
[2018-08-09] MEDS ORDERED: HURRICAINE EXT TUBE (BENZOCAINE) ONE (08:27)
[2018-08-09] MEDS ORDERED: MIDAZOLAM 2 MG/2 ML (VERSED) VIAL ONE (08:33)
[2018-08-09] MEDS ORDERED: PROPOFOL INJECTION 50 ML IV ONE (08:33)
[2018-08-09] MEDS ORDERED: proPOfol 200 MG/20 ML (DIPRIVAN) VIAL IV ONE (09:12)
--- NOTE | 2018-08-09 09:38 | Progress Note-Post Operative ---
Post-Operative Progess Note Surgeon (s)/Associate Professor Of Forestry (s) Surgeon MARIAJOSE LUDWIG DO Associate Professor Of Forestry: na Pre-Operative Diagnosis bright red blood in stool, epigastric abdominal pain Post-Operative Diagnosis colon polyps, hiatal hernia gastritis Procedure & Operative Findings Date of Procedure 08/09/18 Procedure Performed/Findings egd c biopsies, colonoscopy c hot bx polypectomy x 4 Anesthesia Type per mda Estimated Blood Loss Estimated blood loss (mL): none Specimens/Packing Specimens Removed antrum, body, ge, cecal polyps x 2 and rectal polyps x 2 MARIAJOSE LUDWIG DO Aug 09, 2018 09:38
[2018-08-09] MEDS ORDERED: SUCR1TAB36 PO (09:44)
[2018-08-09 09:45] VITALS: BP 130/78
--- NOTE | 2018-08-09 09:45 | Discharge Inst-Simple/Standard ---
Discharge Inst-Standard Discharge Medications New, Converted or Re-Newed RX: Transmitted to Pharmacy Patient Instructions/Follow Up Plan of Care/Instructions/FU: 2 weeks toñito Activity as Tolerated: Yes Discharge Diet: Regular Diet MARIAJOSE LUDWIG DO Aug 09, 2018 09:45
[2018-08-09 10:10] VITALS: BP 117/84
[2018-08-09 10:19] VITALS: BP 117/84
--- NOTE | 2018-08-09 11:08 | Anesthesia-General Post-Op ---
MAC Patient Condition Mental Status/LOC: Same as Preop Cardiovascular: Satisfactory Nausea/Vomiting: Absent Respiratory: Satisfactory Pain: Controlled Complications: Absent Post Op Complications Complications None Follow Up Care/Instructions Patient Instructions None needed. Anesthesiology Discharge Order Discharge Order Patient is doing well, no complaints, stable vital signs, no apparent adverse anesthesia problems. No complications reported per nursing. MARTHA AGUILAR CRNA Aug 09, 2018 11:08
--- NOTE | 2018-08-09 12:55 | OPERATIVE REPORT ---
DATE OF SERVICE: 08/09/2018 PREOPERATIVE DIAGNOSES: Bright red blood in stool, epigastric abdominal pain. POSTOPERATIVE DIAGNOSES: Colon polyps, hernia, gastritis. PROCEDURE: EGD with biopsies, colonoscopy with hot biopsy polypectomy x4. SURGEON: Mariajose Neal DO ANESTHESIA: Per MDA. ESTIMATED BLOOD LOSS: None. COMPLICATIONS: None. INDICATIONS: The patient is a 43-year-old male who is having epigastric abdominal pain slightly worsening and having some occasional bright red blood in stools. He understands the risks and benefits of procedure and wished to proceed with procedures. Consent was signed in the chart. PROCEDURE: The patient was taken to the endoscopy suite, placed in left lateral recumbent position. Timeout was performed. Scope was inserted in mouth, down the esophagus, stomach into the duodenum without difficulty. No polyps, mass or ulcerations within the duodenum. Scope was then slowly retracted back to the stomach where it was further insufflated. In the distal portion of the antrum, erythematous changes around the pyloric opening were present. Biopsy of this area was obtained. Scope was slowly retracted back and retroflexed noting slight erythematous changes, little bit of friability of the body of the stomach. Biopsy of this area was obtained. Also noting a hiatal hernia. No other pathology noted. Scope was returned to its normal position, slowly withdrawn to the distal esophagus, which had some slight erythematous changes. Biopsy of the GE junction was obtained. Scope was slowly retracted back noting no other pathology. Digital rectal exam was performed. There were no palpable polyps, mass or ulcerations. The scope was inserted in the rectum and advanced all the way to the cecum with minimal difficulty. Prep was adequate. There are two very small polyps, which hot biopsy polypectomy was performed on these in the cecum. Scope was then slowly retracted back. No polyps, masses or ulcerations in the ascending colon, transverse colon, descending and sigmoid colon. In the rectum, a small polyp was present, which hot biopsy polypectomy was performed. Also right next to this area was a larger flat slightly inflamed area that appears to be a larger flat polyp. Hot biopsy polypectomy was performed on this area. Scope was inserted and retracted multiple times. The scope was then able to be retroflexed to give the retroflexed view. Therefore, multiple insertions and retractions made noting no other pathology. The patient tolerated the procedure well without any complications and taken to recovery room in stable condition. RECOMMENDATIONS: The patient to continue on Protonix that he is already on. We will add Carafate 1 gram four times a day to see if he has any improvement. The patient will follow up on biopsies. If the larger polyp in the rectum is a tubular adenoma, we would recommend repeat endoscopy in 3 to 6 months just to make sure that this is resolved. Otherwise, to follow up in 3 to 5 years. Job ID: [id number] DocumentID: [id number] Dictated Date: 08/09/2018 09:48:54 Director Of Event Management Date: 08/09/2018 12:54:44 Dictated By: MARIAJOSE NEAL DO
== END 2018-08-09 10:25 | disposition home or self-care (01) ==
LOC: ENDO 07:26
PROVIDERS: ATTEND Surgery
DX: K63.5 Polyp of colon (principal); K62.1 Rectal polyp; K29.70 Gastritis, unspecified, without bleeding; K21.9 Gastro-esophageal reflux disease without esophagitis; K44.9 Diaphragmatic hernia without obstruction or gangrene; E66.9 Obesity, unspecified; Z68.39 Body mass index [BMI] 39.0-39.9, adult

== ENCOUNTER 2018-09-05 22:31 | Emergency (ER) | payer SELFPAY ==
[~2018-09-05] VITALS: Ht 175.3 cm; Wt 117.9 kg
--- OUTSIDE RECORDS SUMMARY | 2018-09-05 22:56 | XMS REPORT | Continuity of Care Document ---
Author Author [facility] Address Unknown Phone Unavailable Allergies Active Description Code Type Severity Reaction Onset Reported/Identified Relationship to Patient Clinical Status Yes CHOLESTEROL PILL CHOLESTEROL PILL Mild "RED MAN SYNDRO 10/14/2008 Yes morphine Drug Allergy N/A N/A 03/07/2010 Yes morphine [id number] Drug Allergy Unknown SWEATS AND VOMI 07/06/2017 [...] AND ABSCESS OF UNSPECIFIED SITES 02/17/2013 AMY HAELY APRN V58.31 WOUND DRESSING 02/17/2013 BRENNER DO, [...] LALITHA BATEMAN, JOHANNA Ot 553.3 09/30/2014 LALITHA BATEMNA, JOHANNA Ot 935.1 09/30/2014 LALITHA BATEMAN, JOHANNA Ot E000.8 09/30/2014 LALITHA BATEMAN, TAIWOKI Ot E915 09/30/2014 ARTEMIO MONTES METAL BONDER Ot 692.6 DERMATITIS DUE TO PLANT 09/30/2014 ARTEMIO MONTES METAL BONDER Ot 782.1 NONSPECIF SKIN ERUPT NEC 10/09/2014 [...] Ot K44.9 DIAPHRAGMATIC HERNIA WITHOUT OBSTRUCTION 07/16/2017 [facility] K92.1 MELENA 07/16/2017 [facility] Ot Z68.39 BODY MASS INDEX (BMI) 39.0-39.9, ADULT 07/16/2017 [facility] Ot E66.9 OBESITY, UNSPECIFIED 07/16/2017 [facility] MARIAJOSE D Ot K21.9 GASTRO-ESOPHAGEAL REFLUX DISEASE WITHOUT 07/16/2017 [facility], MARIAJOSE D Ot K25.9 GASTRIC ULCER, UNSP ACUTE OR CHRONIC, 07/16/2017 [facility] MARIAJOSE D Ot K29.70 GASTRITIS, UNSPECIFIED, WITHOUT BLEEDING 07/16/2017 [facility] MARIAJOSE D Ot K44.9 DIAPHRAGMATIC HERNIA WITHOUT OBSTRUCTION 07/16/2017 [facility] MARIAJOSE D Ot K92.1 MELENA 07/16/2017 [facility] MARIAJOSE D Ot Z68.39 BODY MASS INDEX (BMI) 39.0-39.9, ADULT 08/04/2017 XOCHILT PANCHAL MD Ot R60.0 LOCALIZED EDEMA 10/18/2017 [facility] Ot K21.0 GASTRO-ESOPHAGEAL REFLUX DISEASE WITH ES 10/18/2017 [facility] Ot K76.0 FATTY (CHANGE OF) LIVER, [...] FB ENTERING OTH ORIFICE 10/22/2017 ALEX SOLER METAL BONDER Ot M79.89 OTHER SPECIFIED SOFT TISSUE DISORDERS 10/22/2017 ALEX SOLER METAL BONDER Ot R60.0 LOCALIZED EDEMA 10/22/2017 ABDULKADIR BATEMAN, XOCHILT Thorpe Ot R60.0 LOCALIZED EDEMA 10/22/2017 LUDWIG DO, MARIAJOSE D Ot K21.0 GASTRO-ESOPHAGEAL REFLUX DISEASE WITH ES 10/22/2017 LUDWIG DO, MARIAJOSE D Ot K76.0 FATTY (CHANGE OF) LIVER, NOT ELSEWHERE C 10/22/2017 TERA AMY Funmi [employer]UMNAE SECRETARY Ot R10.32 LEFT LOWER QUADRANT PAIN 10/22/2017 AMY HALEY ALUMNAE SECRETARY Ot R10.32 LEFT LOWER QUADRANT PAIN 10/22/2017 LUDWIG DO, MARIAJOSE D Ot K21.0 GASTRO-ESOPHAGEAL REFLUX DISEASE WITH ES 10/22/2017 LUDWIG DO, MARIAJOSE D Ot K76.0 FATTY (CHANGE OF) LIVER, NOT ELSEWHERE C 10/22/2017 ALEX SOLER METAL BONDER Ot M79.89 OTHER SPECIFIED SOFT TISSUE DISORDERS 10/22/2017 ALEX SOLER METAL BONDER Ot R60.0 LOCALIZED EDEMA 10/22/2017 ABDULKADIR BATEMAN, XOCHILT Thorpe Ot R60.0 LOCALIZED EDEMA 10/23/2017 ALEX SOLER METAL BONDER Ot M79.89 OTHER SPECIFIED SOFT TISSUE DISORDERS 10/23/2017 ALEX SOLER METAL BONDER Ot R60.0 LOCALIZED EDEMA 10/25/2017 Ot 608.4 [...] DOTY MD Ot 530.3 ESOPHAGEAL STRICTURE 11/13/2017 JOHNANA DOTY MD Ot 530.5 DYSKINESIA OF ESOPHAGUS [...] FB ENTERING OTH ORIFICE 11/13/2017 ALEX SOLER METAL BONDER Ot M79.89 OTHER SPECIFIED SOFT TISSUE DISORDERS [...] MD Ot 530.11 REFLUX ESOPHAGITIS 11/19/2017 JOHANNA DOTY MD Ot 530.3 ESOPHAGEAL STRICTURE 11/19/2017 JOHANNA [...] BEATTY Ot Z23 ENCOUNTER FOR IMMUNIZATION 05/31/2018 JACI, BOBAN N Ot Z68.39 BODY MASS [...] Ot R68.84 JAW PAIN 06/01/2018 AZALIA CHANDLER MD Ot Z68.39 BODY MASS INDEX (BMI) 39.0-39.9, ADULT 06/01/2018 AZALIA CHANDLER MD Ot Z82.49 FAMILY HX OF ISCHEM HEART DIS AND OTH DI 06/01/2018 AZALIA CHANDLER MD Ot Z86.010 PERSONAL HISTORY OF COLONIC POLYPS 06/01/2018 AZALIA CHANDLER MD, Ot Z87.19 PERSONAL HISTORY OF OTHER DISEASES OF TH 06/01/2018 AZALIA CHANDLER MD Ot Z88.5 ALLERGY STATUS TO NARCOTIC AGENT STATUS 06/01/2018 AZALIA CHANDLER MD Ot Z88.8 ALLERGY STATUS TO OT DRUG/MEDS/BIOL SUB 06/01/2018 AZALIA CHANDLER MD Ot Z90.89 ACQUIRED ABSENCE OF OTHER ORGANS 06/01/2018 AZALIA CHANDLER MD Ot Z92.21 PERSONAL HISTORY OF ANTINEOPLASTIC CHEMO 06/13/2018 ARTEMIO MONTES APRN Ot E66.9 OBESITY, UNSPECIFIED 06/13/2018 ARTEMIO MONTES APRN Ot I10 ESSENTIAL (PRIMARY) HYPERTENSION 06/13/2018 ARETMIO MONTES APRN Ot K21.9 GASTRO-ESOPHAGEAL REFLUX DISEASE WITHOUT 06/13/2018 ARTEMIO MONTES APRN Ot R10.12 LEFT UPPER QUADRANT PAIN 06/13/2018 ARTEMIO MONTES APRN Ot Z68.39 BODY MASS INDEX (BMI) 39.0-39.9, ADULT 06/13/2018 ARTEMIO MONTES APRN Ot Z82.49 FAMILY HX OF ISCHEM HEART DIS AND OTH DI 06/13/2018 ARTEMIO MONTES APRN Ot Z85.6 PERSONAL HISTORY OF LEUKEMIA 06/13/2018 ARTEMIO MONTES APRN Ot Z86.010 PERSONAL HISTORY OF COLONIC POLYPS 06/13/2018 ARTEMIO MONTES APRN Ot Z87.19 PERSONAL HISTORY OF OTHER DISEASES OF TH 06/13/2018 ARTEMIO MONTES APRN Ot Z88.5 ALLERGY STATUS TO NARCOTIC AGENT STATUS 06/13/2018 ARTEMIO MONTES APRN Ot Z90.49 ACQUIRED ABSENCE OF OTHER SPECIFIED PART 06/13/2018 ARTEMIO MONTES APRN Ot Z90.89 ACQUIRED ABSENCE OF OTHER ORGANS 06/13/2018 ARTEMIO MONTES APRN Ot Z92.21 PERSONAL HISTORY OF ANTINEOPLASTIC CHEMO 06/16/2018 ARTEMIO MONTES APRN Ot E66.9 OBESITY, UNSPECIFIED 06/16/2018 ARTEMIO MONTES APRN Ot I10 ESSENTIAL (PRIMARY) HYPERTENSION 06/16/2018 ARTEMIO MONTES APRN Ot K21.9 GASTRO-ESOPHAGEAL REFLUX DISEASE WITHOUT 06/16/2018 ARTEMIO MONTES APRN Ot R10.12 LEFT UPPER QUADRANT PAIN 06/16/2018 ARTEMIO MONTES APRN Ot Z68.39 BODY MASS INDEX (BMI) 39.0-39.9, ADULT 06/16/2018 ARTEMIO MONTES APRN Ot Z82.49 FAMILY HX OF ISCHEM HEART DIS AND OTH DI 06/16/2018 ARTEMIO MONTES APRN Ot Z85.6 PERSONAL HISTORY OF LEUKEMIA 06/16/2018 ARTEMIO MONTES APRN Ot Z86.010 PERSONAL HISTORY OF COLONIC POLYPS 06/16/2018 ARTEMIO MONTES APRN Ot Z87.19 PERSONAL HISTORY OF OTHER DISEASES OF TH 06/16/2018 ARTEMIO MONTES APRN Ot Z88.5 ALLERGY STATUS TO NARCOTIC AGENT STATUS 06/16/2018 ARTEMIO MONTES APRN Ot Z90.49 ACQUIRED ABSENCE OF OTHER SPECIFIED PART 06/16/2018 ARTEMIO MONTES APRN Ot Z90.89 ACQUIRED ABSENCE OF OTHER ORGANS 06/16/2018 ARTEMIO MONTES APRN Ot Z92.21 PERSONAL HISTORY OF ANTINEOPLASTIC CHEMO 07/10/2018 SANTOSH BEATTY Ot D61.818 OTHER PANCYTOPENIA 07/10/2018 SANTOSH BEATTY Ot E66.9 OBESITY, UNSPECIFIED 07/10/2018 SANTOSH BEATTY Ot K21.0 GASTRO-ESOPHAGEAL REFLUX DISEASE WITH ES 07/10/2018 SANTOSH BEATTY Ot R16.1 SPLENOMEGALY, NOT ELSEWHERE CLASSIFIED 07/10/2018 SANTOSH BEATTY Ot R59.0 LOCALIZED ENLARGED LYMPH NODES 07/10/2018 SANTOSH BEATTY Ot Z23 ENCOUNTER FOR IMMUNIZATION 07/10/2018 SANTOSH BEATTY Ot Z68.39 BODY MASS INDEX (BMI) 39.0-39.9, ADULT 07/11/2018 SANTOSH BEATTY Ot D61.818 OTHER PANCYTOPENIA 07/11/2018 SANTOHS BEATTY N Ot E66.9 OBESITY, UNSPECIFIED 07/11/2018 SANTOSH BEATTY N Ot K21.0 GASTRO-ESOPHAGEAL REFLUX DISEASE WITH ES 07/11/2018 SANTOSH BEATTY Ot R16.1 SPLENOMEGALY, NOT ELSEWHERE CLASSIFIED 07/11/2018 SANTOSH BEATTY Ot R59.0 LOCALIZED ENLARGED LYMPH NODES 07/11/2018 SANTOSH BEATTY Ot Z23 ENCOUNTER FOR IMMUNIZATION 07/11/2018 SANTOSH BEATTY Ot Z68.39 BODY MASS INDEX (BMI) 39.0-39.9, ADULT 07/12/2018 JOHANNA DOTY MD Ot 530.11 REFLUX ESOPHAGITIS 07/12/2018 JOHANNA DOTY MD Ot 530.3 ESOPHAGEAL STRICTURE 07/12/2018 JOHANNA DOTY MD Ot 530.5 DYSKINESIA OF ESOPHAGUS 07/12/2018 JOHANNA DOTY MD Ot 535.50 UNSP GASTRITIS GASTRODUODENITIS W/O ME 07/12/2018 JOHANNA DOTY MD Ot 535.60 DUODENITIS, WITHOUT MENTION OF HEMORRHAG 07/12/2018 JOHANNA DOTY MD, Ot 553.3 DIAPHRAGMATIC HERNIA 07/12/2018 JOHANNA DOTY MD, Ot 935.1 FOREIGN BODY ESOPHAGUS 07/12/2018 JOHANNA DOTY MD, Ot E000.8 OTHER EXTERNAL CAUSE STATUS 07/12/2018 JOHANNA DOTY MD, Ot E915 FB ENTERING OTH ORIFICE 07/12/2018 ALEX SOLER APRN Ot M79.89 OTHER SPECIFIED SOFT TISSUE DISORDERS 07/12/2018 ALEX SOLER APRN Ot R60.0 LOCALIZED EDEMA 07/12/2018 XOCHILT PANCHAL MD Ot R60.0 LOCALIZED EDEMA 07/12/2018 LUDWIG DO, MARIAJOSE D Ot K21.0 GASTRO-ESOPHAGEAL REFLUX DISEASE WITH ES 07/12/2018 LUDWIG DO, MARIAJOSE D Ot K76.0 FATTY (CHANGE OF) LIVER, NOT ELSEWHERE C 07/12/2018 LUDWIG DO, MARIAJOSE D Ot K21.0 GASTRO-ESOPHAGEAL REFLUX DISEASE WITH ES 07/12/2018 AMY HALEY Ot R10.32 LEFT LOWER QUADRANT PAIN 07/12/2018 SANTOSH BEATTY Ot D61.818 OTHER PANCYTOPENIA 07/12/2018 SANTOSH BEATTY Ot E66.9 OBESITY, UNSPECIFIED 07/12/2018 SANTOSH BEATTY Ot K21.0 GASTRO-ESOPHAGEAL REFLUX DISEASE WITH ES 07/12/2018 SANTOSH BEATTY Ot R16.1 SPLENOMEGALY, NOT ELSEWHERE CLASSIFIED 07/12/2018 SANTOSH BEATTY Ot R59.0 LOCALIZED ENLARGED LYMPH NODES 07/12/2018 SANTOSH BEATTY Ot Z23 ENCOUNTER FOR IMMUNIZATION 07/12/2018 SANTOSH BEATTY Ot Z68.39 BODY MASS INDEX (BMI) 39.0-39.9, ADULT 07/18/2018 AZALIA CHANDLER MD Ot E66.9 OBESITY, UNSPECIFIED 07/18/2018 AZALIA CHANDLER MD Ot I10 ESSENTIAL (PRIMARY) HYPERTENSION 07/18/2018 AZALIA CHANDLER MD Ot K21.9 GASTRO-ESOPHAGEAL REFLUX DISEASE WITHOUT 07/18/2018 AZALIA CHANDLER MD Ot R07.89 OTHER CHEST PAIN 07/18/2018 AZALIA CHANDLER MD Ot Z68.39 BODY MASS INDEX (BMI) 39.0-39.9, ADULT 07/18/2018 AZALIA CHANDLER MD Ot Z82.49 FAMILY HX OF ISCHEM HEART DIS AND OTH DI 07/18/2018 AZALIA CHANDLER MD Ot Z85.6 PERSONAL HISTORY OF LEUKEMIA 07/18/2018 AZALIA CHANDLER MD, Ot Z86.010 PERSONAL HISTORY OF COLONIC POLYPS 07/18/2018 AZAILA CHANDLER MD Ot Z87.19 PERSONAL HISTORY OF OTHER DISEASES OF TH 07/18/2018 AZALIA CHANDLER MD Ot Z88.5 ALLERGY STATUS TO NARCOTIC AGENT STATUS 07/18/2018 AZALIA CHANDLER MD Ot Z88.8 ALLERGY STATUS TO OTH DRUG/MEDS/BIOL SUB 07/18/2018 AZALIA CHANDLER MD Ot Z90.49 ACQUIRED ABSENCE OF OTHER SPECIFIED PART 07/18/2018 AZALIA CHANDLER MD Ot Z92.21 PERSONAL HISTORY OF ANTINEOPLASTIC CHEMO 07/18/2018 AZALIA CHANDLER MD Ot Z98.890 OTHER SPECIFIED POSTPROCEDURAL STATES 07/20/2018 AZALIA CHANDLER MD Ot E66.9 OBESITY, UNSPECIFIED 07/20/2018 AZALIA CHANDLER MD Ot I10 ESSENTIAL (PRIMARY) HYPERTENSION 07/20/2018 AZALIA CHANDLER MD Ot K21.9 GASTRO-ESOPHAGEAL REFLUX DISEASE WITHOUT 07/20/2018 AZALIA CHANDLER MD Ot R07.89 OTHER CHEST PAIN 07/20/2018 AZALIA CHANDLER MD Ot Z68.39 BODY MASS INDEX (BMI) 39.0-39.9, ADULT 07/20/2018 AZALIA CHANDLER MD Ot Z82.49 FAMILY HX OF ISCHEM HEART DIS AND OTH DI 07/20/2018 AZALIA CHANDLER MD Ot Z85.6 PERSONAL HISTORY OF LEUKEMIA 07/20/2018 AZALIA CHANDLER MD Ot Z86.010 PERSONAL HISTORY OF COLONIC POLYPS 07/20/2018 AZALIA CHANDLER MD Ot Z87.19 PERSONAL HISTORY OF OTHER DISEASES OF 07/20/2018 AZALIA CHANDLER MD Ot Z88.5 ALLERGY STATUS TO NARCOTIC AGENT STATUS 07/20/2018 AZALIA CHANDLER MD Ot Z88.8 ALLERGY STATUS TO OTH DRUG/MEDS/BIOL SUB 07/20/2018 AZALIA CHANDLER MD Ot Z90.49 ACQUIRED ABSENCE OF OTHER SPECIFIED PART 07/20/2018 AZALIA CHANDLER MD Ot Z92.21 PERSONAL HISTORY OF ANTINEOPLASTIC CHEMO 07/20/2018 AZALIA CHANDLER MD Ot Z98.890 OTHER SPECIFIED POSTPROCEDURAL STATES 07/20/2018 JOHANNA DOTY MD Ot 530.11 REFLUX ESOPHAGITIS 07/20/2018 JOHANNA DOTY MD Ot 530.3 ESOPHAGEAL STRICTURE 07/20/2018 JOHANNA DOTY MD Ot 530.5 DYSKINESIA OF ESOPHAGUS 07/20/2018 JOHANNA DOTY MD Ot 535.50 UNSP GASTRITIS GASTRODUODENITIS W/O ME 07/20/2018 JOHANNA DOTY MD Ot 535.60 DUODENITIS, WITHOUT MENTION OF HEMORRHAG 07/20/2018 JOHANNA DOTY MD Ot 553.3 DIAPHRAGMATIC HERNIA 07/20/2018 JOHANNA DOTY MD Ot 935.1 FOREIGN BODY ESOPHAGUS 07/20/2018 JOHANNA DOTY MD Ot E000.8 OTHER EXTERNAL CAUSE STATUS 07/20/2018 JOHANNA DOTY MD Ot E915 FB ENTERING OTH ORIFICE 07/20/2018 ALEX SOLER APRN Ot M79.89 OTHER SPECIFIED SOFT TISSUE DISORDERS 07/20/2018 ALEX SOLER APRN Ot R60.0 LOCALIZED EDEMA 07/20/2018 ABDULKADIR BATEMAN, XOCHILT Thorpe Ot R60.0 LOCALIZED EDEMA 07/20/2018 MARIAJOSE LUDWIG DO Ot K21.0 GASTRO-ESOPHAGEAL REFLUX DISEASE WITH ES 07/20/2018 MARIAJOSE LUDWIG DO Ot K76.0 FATTY (CHANGE OF) LIVER, NOT ELSEWHERE C 07/20/2018 MARIAJOSE LUDWIG DO Ot K21.0 GASTRO-ESOPHAGEAL REFLUX DISEASE WITH ES 07/20/2018 AMY HALEY Ot R10.32 LEFT LOWER QUADRANT PAIN 07/20/2018 SANTOSH BEATTY Ot D61.818 OTHER PANCYTOPENIA 07/20/2018 SANTOSH BEATTY Ot E66.9 OBESITY, UNSPECIFIED 07/20/2018 SANTOSH BEATTY Ot K21.0 GASTRO-ESOPHAGEAL REFLUX DISEASE WITH ES 07/20/2018 SANTOSH BEATTY Ot R16.1 SPLENOMEGALY, NOT ELSEWHERE CLASSIFIED 07/20/2018 SANTOSH BEATTY Ot R59.0 LOCALIZED ENLARGED LYMPH NODES 07/20/2018 SANTOSH BEATTY Ot Z23 ENCOUNTER FOR IMMUNIZATION 07/20/2018 SANTOSH BEATTY Ot Z68.39 BODY MASS INDEX (BMI) 39.0-39.9, ADULT 07/21/2018 RAMESH BATEMAN, AZALIA Thorpe Ot E66.9 OBESITY, UNSPECIFIED 07/21/2018 AZALIA CHANDLER MD Ot I10 ESSENTIAL (PRIMARY) HYPERTENSION 07/21/2018 AZALIA CHANDLER MD Ot K21.9 GASTRO-ESOPHAGEAL REFLUX DISEASE WITHOUT 07/21/2018 AZALIA CHANDLER MD Ot R07.89 OTHER CHEST PAIN 07/21/2018 AZALIA CHANDLER MD Ot Z68.39 BODY MASS INDEX (BMI) 39.0-39.9, ADULT 07/21/2018 AZALIA CHANDLER MD Ot Z82.49 FAMILY HX OF ISCHEM HEART DIS AND OTH DI 07/21/2018 AZALIA CHANDLER MD Ot Z85.6 PERSONAL HISTORY OF LEUKEMIA 07/21/2018 AZALIA CHANDLER MD Ot Z86.010 PERSONAL HISTORY OF COLONIC POLYPS 07/21/2018 AZALIA CHANDLER MD Ot Z87.19 PERSONAL HISTORY OF OTHER DISEASES OF TH 07/21/2018 AZALIA CHANDLER MD Ot Z88.5 ALLERGY STATUS TO NARCOTIC AGENT STATUS 07/21/2018 AZALIA CHANDLER MD, Ot Z88.8 ALLERGY STATUS TO OT DRUG/MEDS/BIOL SUB 07/21/2018 AZALIA CHANDLER MD Ot Z90.49 ACQUIRED ABSENCE OF OTHER SPECIFIED PART 07/21/2018 AZALIA CHANDLER MD Ot Z92.21 PERSONAL HISTORY OF ANTINEOPLASTIC CHEMO 07/21/2018 AZALIA CHANDLER MD Ot Z98.890 OTHER SPECIFIED POSTPROCEDURAL STATES 07/24/2018 MARIAJOSE LUDWIG DO D Ot K76.0 FATTY (CHANGE OF) LIVER, NOT ELSEWHERE C 07/26/2018 AZALIA CHANDLER MD Ot E66.9 OBESITY, UNSPECIFIED 07/26/2018 AZALIA CHANDLER MD Ot I10 ESSENTIAL (PRIMARY) HYPERTENSION 07/26/2018 AZALIA CHANDLER MD Ot K21.9 GASTRO-ESOPHAGEAL REFLUX DISEASE WITHOUT 07/26/2018 AZALIA CHANDLER MD Ot R07.89 OTHER CHEST PAIN 07/26/2018 AZALIA CHANDLER MD Ot Z68.39 BODY MASS INDEX (BMI) 39.0-39.9, ADULT 07/26/2018 AZALIA CHANDLER MD Ot Z82.49 FAMILY HX OF ISCHEM HEART DIS AND OTH DI 07/26/2018 AZALIA CHANDLER MD Ot Z85.6 PERSONAL HISTORY OF LEUKEMIA 07/26/2018 AZALIA CHANDLER MD, Ot Z86.010 PERSONAL HISTORY OF COLONIC POLYPS 07/26/2018 AZALIA CHANDLER MD, Ot Z87.19 PERSONAL HISTORY OF OTHER DISEASES OF TH 07/26/2018 AZALIA CHANDLER MD, Ot Z88.5 ALLERGY STATUS TO NARCOTIC AGENT STATUS 07/26/2018 AZALIA CHANDLER MD, Ot Z88.[address] [facility] DRUG/MEDS/BIOL SUB 07/26/2018 AZALIA CHANDLER MD, Ot Z90.49 ACQUIRED ABSENCE OF OTHER SPECIFIED PART 07/26/2018 AZALIA CHANDLER MD, Ot Z92.21 PERSONAL HISTORY OF ANTINEOPLASTIC CHEMO 07/26/2018 AZALIA CHANDLER MD, Ot Z98.890 OTHER SPECIFIED POSTPROCEDURAL STATES 08/01/2018 JOHANNA DOTY MD Ot 530.11 REFLUX ESOPHAGITIS 08/01/2018 JOHANNA DOTY MD Ot 530.3 ESOPHAGEAL STRICTURE 08/01/2018 JOHANNA DOTY MD Ot 530.5 DYSKINESIA OF ESOPHAGUS 08/01/2018 JOHANNA DOTY MD Ot 535.50 UNSP GASTRITIS GASTRODUODENITIS W/O ME 08/01/2018 JOHANNA DOTY MD Ot 535.60 DUODENITIS, WITHOUT MENTION OF HEMORRHAG 08/01/2018 JOHANNA DOTY MD Ot 553.3 DIAPHRAGMATIC HERNIA 08/01/2018 JOHANNA DOTY MD Ot 935.1 FOREIGN BODY ESOPHAGUS 08/01/2018 JOHANNA DOTY MD Ot E000.8 OTHER EXTERNAL CAUSE STATUS 08/01/2018 JOHANNA DOTY MD Ot E915 FB ENTERING OTH ORIFICE 08/01/2018 ALEX SOLER APRN Ot M79.89 OTHER SPECIFIED SOFT TISSUE DISORDERS 08/01/2018 ALEX SOLER APRN Ot R60.0 LOCALIZED EDEMA 08/01/2018 XOCHILT PANCHAL MD Ot R60.0 LOCALIZED EDEMA 08/01/2018 MARIAJOSE LUDWIG DO, Ot K21.0 GASTRO-ESOPHAGEAL REFLUX DISEASE WITH ES 08/01/2018 MARIAJOSE LUDWIG DO Ot K76.0 FATTY (CHANGE OF) LIVER, NOT ELSEWHERE C 08/01/2018 MARIAJOSE LUDWIG DO Ot K21.0 GASTRO-ESOPHAGEAL REFLUX DISEASE WITH ES 08/01/2018 AMY HALEY JOSH Ot R10.32 LEFT LOWER QUADRANT PAIN 08/01/2018 SANTOSH BEATTY Ot D61.818 OTHER PANCYTOPENIA 08/01/2018 SANTOSH BEATTY Ot E66.9 OBESITY, UNSPECIFIED 08/01/2018 SANTOSH BEATTY Ot K21.0 GASTRO-ESOPHAGEAL REFLUX DISEASE WITH ES 08/01/2018 SANTOSH BEATTY Yadira Ot R16.1 SPLENOMEGALY, NOT ELSEWHERE CLASSIFIED 08/01/2018 SANTOSH BEATTY Ot R59.0 LOCALIZED ENLARGED LYMPH NODES 08/01/2018 SANTOSH BEATTY Ot Z23 ENCOUNTER FOR IMMUNIZATION 08/01/2018 SANTOSH BEATTY Yadira Ot Z68.39 BODY MASS INDEX (BMI) 39.0-39.9, ADULT 08/01/2018 MARIAJOSE LUDWIG DO Ot K76.0 FATTY (CHANGE OF) LIVER, NOT ELSEWHERE C 08/02/2018 MARIAJOSE LUDWIG DO Ot R10.13 EPIGASTRIC PAIN 08/09/2018 MARIAJOSE LUDWIG DO Ot E66.9 OBESITY, UNSPECIFIED 08/09/2018 MARIAJSOE LUDWIG DO Ot K21.9 GASTRO-ESOPHAGEAL REFLUX DISEASE WITHOUT 08/09/2018 MARIAJOSE LUDWIG DO Ot K29.70 GASTRITIS, UNSPECIFIED, WITHOUT BLEEDING 08/09/2018 MARIAJOSE LUDWIG DO Ot K44.9 DIAPHRAGMATIC HERNIA WITHOUT OBSTRUCTION 08/09/2018 MARIAJOSE LUDWIG DO Ot K62.1 RECTAL POLYP 08/09/2018 MARIAJOSE LUDWIG DO Ot K63.5 POLYP OF COLON 08/09/2018 MARIAJOSE LUDWIG DO Ot Z68.39 BODY MASS INDEX (BMI) 39.0-39.9, ADULT 08/10/2018 MARIAJOSE LUDWIG DO Ot Z01.818 ENCOUNTER FOR OTHER PREPROCEDURAL EXAMIN Procedures Code Description Performed By Performed On [facility] OLVIN DOAN 12/10/2012 86.04 OTHER SKIN SUBQ [...] rickettsii IgG antibody assay (units/volume) < <1:16 [place] spotted fever panel < <1:10 Francisella tularensis [...] 7-25 CREATININE 0.76 mg/dL 0.60-1.35 eGFR NON-AFR. SAO TOMEAN 113 mL/min/1.73m2 > OR=60 eGFR 130 mL/min/1.73m2 [...] - 10/29/17 09:27 ABSOLUTE NEUTROPHILS 164 cells/uL 0892-4749 ABSOLUTE MONOCYTES 14 cells/uL 200-950 ABSOLUTE EOSINOPHILS [...] plasma (mass/volume) 0.20 ug/mL 0.00-0.49 PDM - PANEL (PROFILE 1) - 05/25/18 09:36 Prescribed Drug 1 Josephine(TM) NRG Creatinine 112.2 mg/dL > or=20.0 pH [...] NEGATIVE ng/mL <25 medMATCH Phencyclidine CONSISTENT NRG Complete blood count (CBC) with automated white blood cell (WBC) differential - 07/18/18 09:48 Blood leukocytes automated count (number/volume) 5.6 10*3/uL 4.3-11.0 Blood erythrocytes automated count (number/volume) 5.47 10*6/uL 4.35-5.85 Venous blood hemoglobin measurement (mass/volume) 16.4 g/dL 13.3-17.7 Blood hematocrit (volume fraction) 46 % 40-54 Automated erythrocyte mean corpuscular volume 85 [foz_us] 80-99 Automated erythrocyte mean corpuscular hemoglobin (mass per erythrocyte) 30 pg 25-34 Automated erythrocyte mean corpuscular hemoglobin concentration measurement ( mass/volume) 36 g/dL 32-36 Automated erythrocyte distribution width ratio 12.9 % 10.0-14.5 Automated blood platelet count (count/volume) 166 10*3/uL 130-400 Automated blood platelet mean volume measurement 11.0 [foz_us] 7.4-10.4 Automated blood neutrophils/100 leukocytes 66 % 42-75 Automated blood lymphocytes/100 leukocytes 26 % 12-44 Blood monocytes/100 leukocytes 7 % 0-12 Automated blood eosinophils/100 leukocytes 2 % 0-10 Automated blood basophils/100 leukocytes 0 % 0-10 Blood neutrophils automated count (number/volume) 3.7 10*3 1.8-7.8 Blood lymphocytes automated count (number/volume) 1.4 10*3 1.0-4.0 Blood monocytes automated count (number/volume) 0.4 10*3 0.0-1.0 Automated eosinophil count 0.1 10*3/uL 0.0-0.3 Automated blood basophil count (count/volume) 0.0 10*3/uL 0.0-0.1 PT panel in platelet poor plasma by coagulation assay - 07/18/18 09:48 Prothrombin time (PT) in platelet poor plasma by coagulation assay 13.2 s 12.2-14.7 INR in platelet poor plasma or blood by coagulation assay 1.0 0.8-1.4 Activated partial thromboplastin time (aPTT) in platelet poor plasma bycoagulation assay - 07/18/18 09:48 Activated partial thromboplastin time (aPTT) in platelet poor plasma bycoagulation assay 29 s 24-35 Comprehensive metabolic panel - 07/18/18 09:48 Serum or plasma sodium measurement (moles/volume) 141 mmol/L 135-145 Serum or plasma potassium measurement (moles/volume) 4.0 mmol/L 3.6-5.0 Serum or plasma chloride measurement (moles/volume) 104 mmol/L 98-107 Carbon dioxide 25 mmol/L 21-32 Serum or plasma anion gap determination (moles/volume) 12 mmol/L 5-14 Serum or plasma urea nitrogen measurement (mass/volume) 14 mg/dL 7-18 Serum or plasma creatinine measurement (mass/volume) 0.81 mg/dL 0.60-1.30 Serum or plasma urea nitrogen/creatinine mass ratio 17 NRG Serum or plasma creatinine measurement with calculation of estimated glomerular filtration rate > NRG Serum or plasma glucose measurement (mass/volume) 99 mg/dL 70-105 Serum or plasma calcium measurement (mass/volume) 9.7 mg/dL 8.5-10.1 Serum or plasma total bilirubin measurement (mass/volume) 0.8 mg/dL 0.1-1.0 Serum or plasma alkaline phosphatase measurement (enzymatic activity/volume) 120 U/L 40-136 Serum or plasma aspartate aminotransferase measurement (enzymatic activity/ volume) 27 U/L 5-34 Serum or plasma alanine aminotransferase measurement (enzymatic activity/volume ) 33 U/L 0-55 Serum or plasma protein measurement (mass/volume) 7.8 g/dL 6.4-8.2 Serum or plasma albumin measurement (mass/volume) 4.7 g/dL 3.2-4.5 Magnesium - 07/18/18 09:48 Magnesium 2.2 mg/dL 1.8-2.4 Serum or plasma troponin i.cardiac measurement (mass/volume) - 07/18/18 09:48 Serum or plasma troponin i.cardiac measurement (mass/volume) < ng/ mL <0.028 Myoglobin, serum - 07/18/18 09:48 Myoglobin, serum 29.3 ng/mL 10.0-92.0 Lipase - 07/18/18 09:48 Lipase 38 U/L 8-78 Serum or plasma troponin i.cardiac measurement (mass/volume) - 07/18/18 11:34 Serum or plasma troponin i.cardiac measurement (mass/volume) < ng/ mL <0.028 Encounters ACCT No. Visit Date/Time Discharge Status Pt. Type Provider Facility Loc./Unit Complaint [id number] 07/06/2014 14:22:00 07/06/2014 23:59:59 [facility] Outpatient MARIPOSA BRENNER DO [id number] 05/02/2014 14:27:00 05/02/2014 23:59:59 [facility] Outpatient AMY HALEY APRN [id number] 03/02/2014 09:15:00 03/02/2014 23:59:59 [facility] Outpatient AMY HALEY APRN [id number] 09/15/2013 10:30:00 09/15/2013 23:59:59 [facility] Outpatient AMY HALEY APRN [id number] 04/14/2013 14:56:00 04/14/2013 23:59:59 [facility] Outpatient MARIPOSA BRENNER DO [id number] 04/05/2013 13:52:00 04/05/2013 23:59:59 [facility]patient SARI POPE APRN [id number] 02/27/2013 14:37:00 Document Registration [id number] 02/24/2013 11:36:00 Document Registration [id number] 02/21/2013 16:17:00 Document Registration [id number] 12/10/2012 09:18:00 Document Registration [id number] 12/02/2012 13:42:00 Document Registration [id number] 08/24/2018 17:20:00 08/24/2018 23:59:59 [facility] Outpatient AMY HALEY APRN [facility] [id number] 05/25/2018 09:40:00 Document Registration [id number] 10/29/2017 09:00:00 Document Registration [id number] 06/18/2017 08:00:00 Document Registration [id number] 08/09/2018 07:26:00 08/09/2018 10:25:00 DIS Outpatient MARIAJOSE LUDWIG DO [facility] ENDO BLOOD IN STOOL/ EPIGASTRIC ABD PAIN [id number] 08/05/2018 05:50:00 08/05/2018 16:01:00 DIS Outpatient MARIAJOSE LUDWIG DO [facility] PREOP COLONOSCOPY/EGD [id number] 08/01/2018 09:21:00 08/01/2018 23:59:59 [facility] Outpatient MARIAJOSE LUDWIG DO [facility] CARD EPIGASTRIC ABD PAIN [id number] 07/22/2018 08:05:00 07/22/2018 23:59:59 [facility] Outpatient MARIAJOSE LUDWIG DO [facility] RAD EPIGASTRIC ABD PAIN [id number] 07/18/2018 09:32:00 07/18/2018 12:38:00 DIS Outpatient AZALIA CHANDLER MD [facility] ER CHEST PAIN [id number] 07/11/2018 00:13:00 07/11/2018 23:59:59 CLS Preadmit SANOTSH BEATTY [facility] ONC [id number] 06/23/2018 08:43:00 07/10/2018 00:01:00 DIS Outpatient SANTOSH BEATTY [facility] ONC [id number] 06/13/2018 15:34:00 06/13/2018 18:18:00 DIS Emergency ARTEMIO MONTES APRN [facility] ER STRANGE FEELING IN ABD [id number] 03/05/2018 16:41:00 03/05/2018 19:50:00 DIS Emergency AZALIA CHANDLER MD [facility] ER PAIN IN NECK,PAIN DOWN LEGS [id number] 02/07/2018 12:47:00 02/07/2018 23:59:59 [facility] Outpatient SANTOSH BEATTY [facility] ONC [id number] 10/25/2017 07:00:00 10/26/2017 10:34:00 DIS Inpatient ADRI BATEMAN, YOLANDA Thorpe [facility] 4TH CHEST PAIN; PANCYTOPENIA ; SPLENOMEGALY [id number] 10/22/2017 10:53:00 10/22/2017 23:59:59 [facility] Outpatient MARIAJOSE LUDWIG DO [facility] CARD REFLUX ESOPHAGITIS [id number] 10/15/2017 08:13:00 10/15/2017 23:59:59 CLS Outpatient AMY HALEY [facility] RAD R10.32 ABDOMINAL PAIN , LEFT LOWER QUADRANT [id number] 10/15/2017 07:33:00 10/15/2017 23:59:59 CLS Outpatient MARIAJOSE LUDWIG DO [facility] RAD REFLUX EXOPHAGITIS [id number] 08/03/2017 13:34:00 08/03/2017 23:59:59 CLS Outpatient XOCHILT PANCHAL MD [facility] CARD EDEMA OF LLE [id number] 07/13/2017 06:48:00 07/13/2017 10:00:00 DIS Outpatient MARIAJOSE LUDWIG DO [facility] ENDO RECTAL BLEEDING/REFLUX [id number] 07/06/2017 05:37:00 07/06/2017 11:26:00 DIS Outpatient MARIAJOSE LUDWIG DO [facility] PREOP COLONOSCOPY/EGD [id number] 05/24/2017 12:53:00 05/24/2017 23:59:59 CLS Outpatient ALEX SOLER METAL BONDER [facility] RAD LT LEG SWELLING [id number] 12/13/2015 10:44:00 12/13/2015 11:49:00 DIS Emergency ROSENDO HUSSEIN [facility] ER ABSCESS [id number] 11/08/2014 17:12:00 11/08/2014 18:00:00 DIS Emergency YADIRA BERNAL MD [facility] ER R ARM ABCESS [id number] 09/30/2014 17:52:00 09/30/2014 18:00:00 DIS Emergency ARTEMIO MONTES METAL BONDER [facility] ER RASH/POSS POISON WILI [id number] 07/12/2014 22:25:00 07/12/2014 23:46:00 DIS Emergency ALPHONSO REYNOLDS DO [facility] ER CHEST PAIN [id number] 05/11/2014 17:23:00 05/11/2014 23:59:59 CLS Outpatient JOHANNA DOTY MD [facility] SDC FOREIGN BODY [id number] 04/29/2014 20:39:00 04/29/2014 23:08:00 DIS Emergency ALPHONSO REYNOLDS DO [facility] ER INSECT BITE/STING [id number] 03/04/2014 22:54:00 03/05/2014 00:37:00 DIS Emergency ANDIE MCCRAY MD [facility] ER BODY ACHE [id number] 02/10/2014 21:52:00 02/10/2014 22:13:00 DIS Emergency BIRGIT LOPEZ MD [facility] ER POSS SPIDER BITE R KNEE [id number] 03/17/2013 08:06:00 03/17/2013 10:25:00 DIS Emergency YADIRA BERNAL MD [facility] ER LEFT SIDE/ABD PAIN [id number] 02/12/2013 13:49:00 02/14/2013 18:35:00 DIS Inpatient MARIPOSA BRENNER DO [facility] 4TH CELLULITIS [id number] 11/01/2012 09:30:00 01/16/2013 00:01:00 DIS Outpatient VASQUEZ MD, OLVIN Romero [facility] WOUNDCARE PERISCROTAL ABSCESS [id number] 11/30/2012 23:07:00 12/01/2012 03:19:00 DIS Emergency ALPHONSO REYNOLDS DO [facility] ER RT HAND RING FINGER ABSCESS [id number] 11/24/2012 00:23:00 11/24/2012 01:08:00 DIS Emergency MAHENDRA BATEMAN, ANDIE Choudhary [facility] ER ACID REFLUX [id number] 10/12/2012 23:30:00 10/13/2012 19:20:00 DIS Outpatient PEDRO BATEMAN, OLVIN Romero [facility] SDC PERISCROTAL ABSCESS [id number] 01/17/2013 11:15:00 Document Registration [id number] 10/17/2011 13:43:00 Document Registration [id number] 06/21/2011 12:44:00 Document Registration [id number] 06/17/2011 10:02:00 Document Registration [id number] 02/05/2011 17:07:00 Document Registration [id number] 03/13/2010 09:48:00 Document Registration [id number] 03/11/2010 23:27:00 Document Registration [id number] 01/25/2010 21:30:00 Document Registration
[2018-09-05] MEDS ORDERED: ASPIRIN 81 MG CHEW (CHILDREN'S ASA) PO ONE (23:00)
[2018-09-05 23:08] LABS: BASOPHILS % (AUTO) 0 % (0-10); EOSINOPHILS # (AUTO) 0.2 10^3/uL (0.0-0.3); EOSINOPHILS % (AUTO) 3 % (0-10); HEMATOCRIT 45 % (40-54); HEMOGLOBIN 15.7 G/DL (13.3-17.7); LYMPHOCYTES # (AUTO) 1.8 X 10^3 (1.0-4.0); LYMPHOCYTES % (AUTO) 29 % (12-44); MEAN CORPUSCULAR HEMOGLOBIN 30 PG (25-34); MEAN CORPUSCULAR HGB CONC 35 G/DL (32-36); MEAN CORPUSCULAR VOLUME 85 FL (80-99); MEAN PLATELET VOLUME 10.9 FL (7.4-10.4); MONOCYTES # (AUTO) 0.5 X 10^3 (0.0-1.0); MONOCYTES % (AUTO) 7 % (0-12); NEUTROPHILS # (AUTO) 3.8 X 10^3 (1.8-7.8); NEUTROPHILS % (AUTO) 60 % (42-75); PLATELET COUNT 147 10^3/uL (130-400); RED CELL DISTRIBUTION WIDTH 12.5 % (10.0-14.5); WHITE BLOOD COUNT 6.3 10^3/uL (4.3-11.0)
[2018-09-05] MEDS: NITROGLYCERIN 0.4 MG SL TABS BTL 25'S SL PRN ×3 (23:09→23:20)
[2018-09-05 23:21] LABS: PROTHROMBIN TIME PATIENT 12.6 SEC (12.2-14.7)
[2018-09-05 23:34] LABS: ALANINE AMINOTRANSFERASE 37 U/L (0-55); ALBUMIN 4.6 GM/DL (3.2-4.5); ALKALINE PHOSPHATASE 112 U/L (40-136); AMYLASE 86 U/L (25-125); BILIRUBIN,TOTAL 0.4 MG/DL (0.1-1.0); BUN/CREATININE RATIO 22; CALCIUM 9.5 MG/DL (8.5-10.1); CARBON DIOXIDE 22 MMOL/L (21-32); CHLORIDE 107 MMOL/L (98-107); CREATINE KINASE 85 U/L (30-200); GFR ESTIMATED > 60; GLUCOSE 91 MG/DL (70-105); LIPASE 50 U/L (8-78); MAGNESIUM 2.6 MG/DL (1.8-2.4); POTASSIUM 3.9 MMOL/L (3.6-5.0); SODIUM 140 MMOL/L (135-145); TOTAL PROTEIN 7.6 GM/DL (6.4-8.2)
[2018-09-05 23:41] LABS: CREATINE KINASE MB 1.3 NG/ML (<6.6); MYOGLOBIN SERUM 38.2 NG/ML (10.0-92.0)
[2018-09-06] MEDS ORDERED: PANTOPRAZOLE 40 MG (PROTONIX) VIAL IV ONE
[2018-09-06] MEDS ORDERED: KETOROLAC 30 MG/ML VIAL IVP ONE
--- NOTE | 2018-09-06 01:56 | ED Chest Pain ---
General Chief Complaint: Chest Pain Stated Complaint: CHEST AND BACK PAIN Nursing Triage Note: PT VERBALIZED CHEST PRESSURE AND PAIN THAT ONSET YESTERDAY, PT DESCRIBED PAIN IN THE EPIGASTRIC REGION, STATES HE ALSO HAS PAIN IN BETWEEN HIS SHOULDER BLADES. PT DENIES EXTENSIVE CARDIAC HX STATES HE HAS AN EXTENSIVE GI TRACT HX WITH FREQUENT BOUTS OF INDIGESTION. Nursing Sepsis Screen: No Definite Risk Source: patient History of Present Illness Date Seen by Provider: Sep 05, 2018 Time Seen by Provider: 22:57 Initial Comments PT ARRIVES VIA POV FROM HOME C/O CHEST PAIN--POINTS TO MID STERNUM AREA OF PAIN AND GOES UP TO UPPER STERNUM STATES HE STARTED HAVING PAIN YESTERDAY WHILE WALKING INSIDE THE HOUSE--DID NOT LAST LONG, AND WENT AWAY. PAIN RETURNED AGAIN TONIGHT 2 HOURS AGO--WAS SITTING AT THE TIME. PAIN IN CHEST COMES AND GOES ALSO C/O PAIN TO BACK OF NECK AND UPPER BACK BETWEEN SHOULDER BLADES OFF AND ON FOR OVER A MONTH NO NAUSEA/VOMITING NO SWEATS NO SHORTNESS OF BREATH OR PAIN WITH BREATHING NO PALPITATIONS NO DIZZINESS NO PARESTHESIAS OR MOTOR DEFICITS NO SYNCOPE NO FEVER, NO COUGH OR RECENT ILLNESS HAS CHRONIC LEFT LEG SWELLING AND IS NOT PRESENT NOW--STATES HE HAS HAD WORKUP' S FOR DVT''S IN PAST AND ALL HAVE BEEN NEGATIVE. PT HAS HISTORY OF GERD AND HIATAL HERNIA AND IBS. WORK UP'S FOR GALLBLADDER DISEASE HAVE ALL BEEN NEGATIVE. 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) Home Medications Hydrocodone/Acetaminophen 1 Each Tablet, 1 TAB PO Q6H PRN for PAIN-MODERATE, ( Reported) Multivits-Minerals/FA/Lycopene 1 Each Capsule, 1 CAP PO DAILY, (Reported) Pantoprazole Sodium 40 Mg Tablet.dr, 40 MG PO DAILY, (Reported) Sucralfate 1 Gm Tablet, 1 GM PO QID Prescribed by: MARIAJOSE LUDWIG on 08/09/18 [id number] Patient Home Medication List Home Medication List Reviewed: Yes Review of Systems Review of Systems Constitutional: no symptoms reported EENTM: No Symptoms Reported Respiratory: No Symptoms Reported Cardiovascular: See HPI, Chest Pain; Denies Lightheadedness, Denies Syncope Gastrointestinal: No Symptoms Reported Genitourinary: No Symptoms Reported Musculoskeletal: see HPI, back pain Skin: no symptoms reported Psychiatric/Neurological: No Symptoms Reported Endocrine: No Symptoms Reported Hematologic/Lymphatic: Other (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) Past Uetgiit-Fhxpzd-Gbefko Hx Patient Social History Alcohol Use: Denies Use Recreational Drug Use: No Smoking Status: Never a Smoker 2nd Hand Smoke Exposure: No Recent Foreign Travel: No Contact w/Someone Who Travel: No Recent Infectious Disease Expo: No Recent Hopitalizations: No Immunizations Up To Date Tetanus Booster (TDap): Less than 5yrs PED Vaccines UTD: Yes Date of Influenza Vaccine: Mar 21, 2018 Seasonal Allergies Seasonal Allergies: No Past Medical History Surgeries: Yes (PERIRECTAL ABSCESS; SPHINCTEROTOMY; EGD/COLONOSCOPY) Appendectomy Respiratory: No Currently Using CPAP: No Currently Using BIPAP: No Cardiac: Yes (HEART MURMUR CHILD--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; HTN--WAS ON MEDICATIONS BUT HAS NOT TAKEN ANY FOR YEARS) Heart Murmur, Hypertension Neurological: No Reproductive Disorders: No Sexually Transmitted Disease: No HIV/AIDS: No Genitourinary: No Gastrointestinal: Yes (RECTAL BLEEDING, HX POLYPS; PERIRECTAL ABSCESS) Gastroesophageal Reflux, Chronic Diarrhea, Polyps, Hiatal Hernia Musculoskeletal: Yes Arthritis, Fractures Endocrine: No HEENT: No Loss of Vision: Denies Hearing Impairment: Denies Cancer: Yes (TOD CELL LEUKEMIA) Leukemia Did You Recieve Any Treatments: Yes (FINISHED CHEMO 11/2017) What Type of Treatment Did You: Chemotherapy Psychosocial: No Integumentary: No Blood Disorders: No Adverse Reaction/Blood Tranf: No Family Medical History Cardiovascular disease 19 FATHER 19 MOTHER (bipass surgery) Diabetes mellitus 19 MOTHER Hypertension 19 FATHER Myocardial infarction 19 FATHER ( at age 46 from [place]) Heart Disease, Diabetes Physical Exam Vital Signs Vital Signs - First Documented 09/05/18 22:46 Temp 98.5 Pulse 93 Resp 20 B/P (MAP) 124/84 (97) Capillary Refill : Less Than 3 Seconds Height, Weight, BMI Height: 5'9.00" Weight: 260lbs. 0.0oz. 117.586437hf; 39.1 BMI Method:Stated General Appearance: No Apparent Distress, Obese, Other (DOES NOT APPEAR TO BE IN ANY DISCOMFORT OR DISTRESS) Neck: Normal Inspection; No Carotid Bruit, No JVD Respiratory: Normal Breath Sounds, No Accessory Muscle Use, No Respiratory Distress Cardiovascular: Regular Rate, Rhythm, No Edema, No JVD, No Murmur, Normal Peripheral Pulses Gastrointestinal: No Pulsatile Mass, Non Tender, Soft Extremity: Normal Capillary Refill, Normal Inspection, Normal Range of Motion, Non Tender, No Calf Tenderness, No Pedal Edema Neurologic/Psychiatric: Alert, Oriented x3, No Motor/Sensory Deficits, Normal 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, 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 Norm as Tested Skin: Normal Color, Warm/Dry Progress/Results/Core Measures Results/Orders Lab Results Laboratory Tests Test 09/05/18 22:55 09/05/18 22:56 Range/Units Troponin I < 0.028 < 0.028 <0.028 NG/ML White Blood Count 6.3 4.3-11.0 10^3/uL Red Blood Count 5.21 4.35-5.85 10^6/uL Hemoglobin 15.7 13.3-17.7 G/DL Hematocrit 45 40-54 % Mean Corpuscular Volume 85 80-99 FL Mean Corpuscular Hemoglobin 30 25-34 PG Mean Corpuscular Hemoglobin Concent 35 32-36 G/DL Red Cell Distribution Width 12.5 10.0-14.5 % Platelet Count 147 130-400 10^3/uL Mean Platelet Volume 10.9 H 7.4-10.4 FL Neutrophils (%) (Auto) 60 42-75 % Lymphocytes (%) (Auto) 29 12-44 % Monocytes (%) (Auto) 7 0-12 % Eosinophils (%) (Auto) 3 0-10 % Basophils (%) (Auto) 0 0-10 % Neutrophils # (Auto) 3.8 1.8-7.8 X 10^3 Lymphocytes # (Auto) 1.8 1.0-4.0 X 10^3 Monocytes # (Auto) 0.5 0.0-1.0 X 10^3 Eosinophils # (Auto) 0.2 0.0-0.3 10^3/uL Basophils # (Auto) 0.0 0.0-0.1 10^3/uL Prothrombin Time 12.6 12.2-14.7 SEC INR Comment 1.0 0.8-1.4 Activated Partial Thromboplast Time 29 24-35 SEC Sodium Level 140 135-145 MMOL/L Potassium Level 3.9 3.6-5.0 MMOL/L Chloride Level 107 98-107 MMOL/L Carbon Dioxide Level 22 21-32 MMOL/L Anion Gap 11 5-14 MMOL/L Blood Urea Nitrogen 20 H 7-18 MG/DL Creatinine 0.90 0.60-1.30 MG/DL Estimat Glomerular Filtration Rate > 60 BUN/Creatinine Ratio 22 Glucose Level 91 70-105 MG/DL Calcium Level 9.5 8.5-10.1 MG/DL Corrected Calcium 8.5-10.1 MG/DL Magnesium Level 2.6 H 1.8-2.4 MG/DL Total Bilirubin 0.4 0.1-1.0 MG/DL Aspartate Amino Transf (AST/SGOT) 26 5-34 U/L Alanine Aminotransferase (ALT/SGPT) 37 0-55 U/L Alkaline Phosphatase 112 40-136 U/L Total Creatine Kinase 85 30-200 U/L Creatine Kinase MB 1.3 <6.6 NG/ML Myoglobin 38.2 10.0-92.0 NG/ML B-Type Natriuretic Peptide 11.1 <100.0 PG/ML Total Protein 7.6 6.4-8.2 GM/DL Albumin 4.6 H 3.2-4.5 GM/DL Amylase Level 86 25-125 U/L Lipase 50 8-78 U/L My Orders Orders - ALPHONSO REYNOLDS DO Cbc With Automated Diff (09/05/18 22:57) Magnesium (09/05/18 22:57) Chest 1 View, Ap/Pa Only (09/05/18 22:57) Ekg Tracing (09/05/18 22:57) Cardiac Profile 1 (09/05/18 22:57) Comprehensive Metabolic Panel (09/05/18 22:57) Myoglobin Serum (09/05/18 22:57) Protime With Inr (09/05/18 22:57) Partial Thromboplastin Time (09/05/18 22:57) O2 (09/05/18 22:57) Monitor-Rhythm Ecg Trace Only (09/05/18 22:57) Lipid Panel (09/06/18 06:00) Aspirin Chewable Tablet (Baby Aspirin Ch (09/05/18 23:00) Nitroglycerin 0.4 Mg Btl 25's (Nitrostat (09/05/18 23:00) Saline Lock/Iv-Start (09/05/18 22:57) Creatine Kinase (09/05/18 22:57) Creatine Kinase Mb (09/05/18 22:57) Lipase (09/05/18 22:57) Amylase (09/05/18 22:57) BNP (09/05/18 22:57) Ketorolac Injection (Toradol Injection) (09/06/18 00:00) Pantoprazole Injection (Protonix Injecti (09/06/18 00:00) Ekg Tracing (09/06/18 01:36) Troponin I (09/06/18 01:36) Medications Given in ED Current Medications Medications Dose Ordered Sig/Pablo Route Start Time Stop Time Status Last Admin Dose Admin Aspirin 324 mg ONCE ONCE PO 09/05/18 23:00 09/05/18 23:01 DC 09/05/18 23:09 324 MG Ketorolac Tromethamine 30 mg ONCE ONCE IVP 09/06/18 00:00 09/06/18 00:01 DC 09/06/18 00:10 30 MG Nitroglycerin 0.4 mg UD PRN SL 09/05/18 23:00 09/05/18 23:21 DC 09/05/18 23:20 0.4 MG Pantoprazole 40 mg ONCE ONCE IV 09/06/18 00:00 09/06/18 00:01 DC 09/06/18 00:10 40 MG Vital Signs/I&O 09/05/18 09/05/18 09/05/18 22:46 22:46 22:46 Temp 98.5 Pulse 93 Resp 20 B/P (MAP) 124/84 (97) Pulse Ox 98 95 O2 Delivery Room Air Room Air Room Air Blood Pressure Mean: 97 Progress Progress Note : Progress Note PT GIVEN NTG X 3--CHEST PAIN IS GONE, AND PAIN IN UPPER BACK IS 1/10 GIVEN TORADOL WITH COMPLETE RELIEF OF PAIN CURRENTLY NO BEDS AVAILABLE HERE, AND PT DOES NOT WANT TRANSFERRED, SO WILL KEEP IN ER AND REPEAT TROPONIN IN 3 HOURS NO SYMPTOMS FOR REMAINDER OF ER STAY PT FEELS COMFORTABLE GOING HOME PT STATES HE FEELS LIKE IT IS FROM HIS GERD AND HIATAL HERNIA. STATES DR. LUDWIG DID EGD LAST MONTH AND SAID IT WAS NOT BAD ENOUGH AT THIS TIME THAT IT NEEDED SURGERY. Initial ECG Impression Date: Sep 05, 2018 Initial ECG Impression Time: 22:52 Initial ECG Rate: 92 Initial ECG Rhythm: Normal Sinus Initial ECG Impression: Nonspecific Changes Initial ECG Comparisson: Unchanged EKG : EKG Time: 01:57 Rhythm: Normal Sinus ECG Comparisson: Unchanged Diagnostic Imaging Comments CXR--NO ACUTE PROCESS, PENDING RADIOLOGIST REVIEW Reviewed: Reviewed by Me Departure Impression Primary Impression: Chest pain Additional Impression: GERD (gastroesophageal reflux disease) Disposition: HOME, SELF-CARE Condition: Improved Transfer Method of Transfer: Private Vehicle Departure-Patient Inst. Referrals: [facility] (PCP) Primary Care Physician AMY HALEY (Family) Primary Care Physician Patient Instructions: Chest Pain (DC), Heart Healthy Diet Add. Discharge Instructions: TAKE YOUR MEDICATIONS PRESCRIBED FOLLOW UP WITH [facility] IN 1-2 DAYS FOR FURTHER CARE RETURN TO ER IF WORSE All discharge instructions reviewed with patient and/or family. Voiced understanding. ALPHONSO REYNOLDS DO Sep 06, 2018 01:56
[2018-09-06 03:02] VITALS: BP 127/86
--- NOTE | 2018-09-06 06:36 | Diagnostic Imaging Report ---
INDICATION: Chest pain COMPARISON: 07/18/2018 FINDINGS: Single view chest demonstrate clear lungs bilaterally. The heart is normal. There is no pneumothorax. The osseous structures normal. IMPRESSION: Negative chest. Dictated by: Dictated on workstation # [id number]
== END 2018-09-06 03:12 | disposition home or self-care (01) ==
LOC: EDUNIT# 22:31 → ER 22:32
DX: R07.81 Pleurodynia (principal); K21.9 Gastro-esophageal reflux disease without esophagitis; I10 Essential (primary) hypertension; Z92.21 Personal history of antineoplastic chemotherapy; Z85.6 Personal history of leukemia; Z86.010 Personal history of colon polyps; Z87.19 Personal history of other diseases of the digestive system; Z88.5 Allergy status to narcotic agent; Z82.49 Family history of ischemic heart disease and other diseases of the circulatory system; Z88.8 Allergy status to other drugs, medicaments and biological substances; Z90.49 Acquired absence of other specified parts of digestive tract; Z98.890 Other specified postprocedural states
CPT/HCPCS: 36415; 71045; 80053; 82150; 82550; 82553; 83690; 83735; 83874; 83880; 84484; 85025; 85610; 85730; 93005; 93041

== ENCOUNTER 2018-10-04 08:51 | Outpatient (RCR) | payer OTHER ==
[2018-10-04 08:59] LABS: BASOPHILS % (AUTO) 1 % (0-10); EOSINOPHILS # (AUTO) 0.1 10^3/uL (0.0-0.3); EOSINOPHILS % (AUTO) 3 % (0-10); HEMATOCRIT 45 % (40-54); HEMOGLOBIN 15.5 G/DL (13.3-17.7); LYMPHOCYTES # (AUTO) 1.1 X 10^3 (1.0-4.0); LYMPHOCYTES % (AUTO) 33 % (12-44); MEAN CORPUSCULAR HEMOGLOBIN 31 PG (25-34); MEAN CORPUSCULAR HGB CONC 35 G/DL (32-36); MEAN CORPUSCULAR VOLUME 88 FL (80-99); MEAN PLATELET VOLUME 10.8 FL (7.4-10.4); MONOCYTES # (AUTO) 0.4 X 10^3 (0.0-1.0); MONOCYTES % (AUTO) 13 % (0-12); NEUTROPHILS # (AUTO) 1.7 X 10^3 (1.8-7.8); NEUTROPHILS % (AUTO) 51 % (42-75); PLATELET COUNT 123 10^3/uL (130-400); RED CELL DISTRIBUTION WIDTH 12.7 % (10.0-14.5); WHITE BLOOD COUNT 3.3 10^3/uL (4.3-11.0)
[2018-10-04 09:27] LABS: ALANINE AMINOTRANSFERASE 36 U/L (0-55); ALBUMIN 4.4 GM/DL (3.2-4.5); ALKALINE PHOSPHATASE 98 U/L (40-136); BILIRUBIN,TOTAL 0.7 MG/DL (0.1-1.0); BUN/CREATININE RATIO 19; CALCIUM 9.6 MG/DL (8.5-10.1); CARBON DIOXIDE 24 MMOL/L (21-32); CHLORIDE 105 MMOL/L (98-107); CREATININE SERUM 0.91 MG/DL (0.60-1.30); GFR ESTIMATED > 60; GLUCOSE 124 MG/DL (70-105); POTASSIUM 3.8 MMOL/L (3.6-5.0); SODIUM 140 MMOL/L (135-145); TOTAL PROTEIN 7.2 GM/DL (6.4-8.2)
[2018-12-13] MEDS ORDERED: LACT1CAP62 PO (14:56)
== END 2019-01-02 | disposition home or self-care (01) ==
LOC: ONC 08:51
PROVIDERS: ATTEND Internal Medicine Hematology & Oncology
DX: D61.818 Other pancytopenia (principal); R16.1 Splenomegaly, not elsewhere classified; R59.0 Localized enlarged lymph nodes; K21.0 Gastro-esophageal reflux disease with esophagitis; E66.9 Obesity, unspecified; Z68.39 Body mass index [BMI] 39.0-39.9, adult
CPT/HCPCS: 36415; 80053; 83615; 85025; 99213

== ENCOUNTER 2018-12-13 05:47 | Outpatient (CLI) | payer OTHER ==
[~2018-12-13] VITALS: Ht 175.3 cm; Wt 117.9 kg
[2018-12-13] MEDS ORDERED: LACT1CAP62 PO (14:56)
== END 2018-12-13 15:11 | disposition home or self-care (01) ==
LOC: PREOP 05:47
PROVIDERS: ATTEND Surgery
DX: Z01.818 Encounter for other preprocedural examination (principal)

== ENCOUNTER 2018-12-20 09:36 | Day surgery (SDC) | payer OTHER ==
[~2018-12-20] VITALS: Ht 175.3 cm; Wt 117.9 kg
[~2018-12-20 09:36] MED LIST changes: +LACT1CAP62 PO
[2018-12-20] MEDS ORDERED: LACTATED RINGERS 1,000 ML IV ONE (09:40)
--- NOTE | 2018-12-20 09:46 | Progress Note-Pre Operative ---
Pre-Operative Progress Note H&P Reviewed The H&P was reviewed, patient examined and no changes noted. Date Seen by Provider: Dec 20, 2018 Time Seen by Provider: 09:45 Date H&P Reviewed: Dec 20, 2018 Time H&P Reviewed: 09:45 Pre-Operative Diagnosis: gerd, blood in stool, hx polyps hx erosive esophagitis MARIAJOSE LUDWIG DO Dec 20, 2018 09:46
[2018-12-20] MEDS ORDERED: LACTATED RINGERS 1,000 ML IV STA (10:03)
[2018-12-20 10:07] VITALS: BP 128/89
[2018-12-20] MEDS ORDERED: HURRICAINE EXT TUBE (BENZOCAINE) XX PRN (10:15)
[2018-12-20] MEDS ORDERED: fentaNYL INJECTION 100 MCG/2 ML AMP ONE (10:23)
[2018-12-20] MEDS ORDERED: LIDOCAINE PF 2% 5 ML (XYLOCAINE) VIAL ONE (10:23)
[2018-12-20] MEDS ORDERED: proPOfol 200 MG/20 ML (DIPRIVAN) VIAL IV ONE ×2 (10:23→10:46)
[2018-12-20] MEDS ORDERED: MIDAZOLAM 2 MG/2 ML (VERSED) VIAL ONE (10:23)
--- OUTSIDE RECORDS SUMMARY | 2018-12-20 11:01 | XMS REPORT ---
Author Author Migration, Doctor Organization [facility] Address Unknown Phone Unavailable Care Team Providers Care Product Marketing Engineer Name Role Phone Migration, Doctor Unavailable Unavailable PROBLEMS Type Condition ICD9-CM Code FJP69-KX Code Onset Dates Condition Status SNOMED Code Problem Gastroesophageal reflux disease with esophagitis K21.0 Active 768413451 Problem Other chronic pain G89.29 Active 37624512 Problem Morbid (severe) obesity due to excess calories E66.01 Active 38542977522885 Problem Body mass index (BMI) of 45.0-49.9 in adult Z68.42 Active 224933380 Problem Essential hypertension I10 Active 85771919 Problem Pancytopenia D61.818 Active 464884212 Problem GERD with esophagitis K21.0 Active 942880314 Problem Allergic rhinitis due to food J30.5 Active 059502139 Problem Other ulcerative colitis without complication K51.80 Active 22307523 Problem Body mass index (BMI) of 40.0-44.9 in adult Z68.41 Active 950401907 Problem Other chronic pain G89.29 Active 19018653 Problem Neutropenia, unspecified type D70.9 Active 038626356 Problem Temporary low platelet count D69.6 Active 355846120 ALLERGIES No Information ENCOUNTERS Encounter Location Date Diagnosis [place] [id number] [address] October, [place] [id number] [place] [address] October, [place] [id number] [place] [address] Sep, Gastroesophageal reflux disease with esophagitis K21.0 [facility] [id number] [place] [address] Sep, Muscle spasm M62.838 ; Family history of diabetes mellitus Z83.3 ; Frequent urination R35.0 ; Pain in left knee M25.562 ; Pain in right knee M25.561 and Morbid obesity E66.01 [facility] [id number] [place] [address] Aug, [facility] [id number] [place] [address] Aug, [facility] [id number] [place] [address] Aug, Pancytopenia D61.818 [facility] [id number] [place] [address] Aug, Acute eczema L30.9 [facility] [id number] [place] [address] Aug, [facility] [id number] [place] [address] Aug, Pancytopenia D61.818 [facility] [id number] [place] [address] Jul, Frequent headaches R51 [place] [id number] [place] [address] Jul, [facility] [id number] [place] [address] Jul, Allergic rhinitis due to food J30.5 ; Gastroesophageal reflux disease with esophagitis K21.0 ; Pain in right knee M25.561 ; Pain in left knee M25.562 and Other chronic pain G89.29 [facility] [id number] [place] [address] Jun, Pain of left leg M79.605 [place] [id number] [place] [address] May, Pain of left leg M79.605 [place] [id number] [place] [address] May, Other chronic pain G89.29 [facility] [id number] [place] [address] May, Pain of left leg M79.605 [facility] [id number] [place] [address] Apr, Acute upper respiratory infection J06.9 [facility] [id number] [place] [address] Apr, [facility] [id number] [place] [address] Apr, [place] [id number] [place] [address] Mar, Pain of left leg M79.605 and Pain in right leg M79.604 [facility] [id number] [place] [address] Mar, [facility] [id number] [place] [address] Mar, Rash R21 [place] [id number] [place] [address] Mar, [place] [id number] [place] [address] Feb, Leukemia in remission, 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 [facility] [id number] [place] [address] Feb, [place] eye disease of right eye H10.021 and BMI 40.0-44.9, adult Z68.41 [place] [id number] [place] [address] Jan, Other chronic pain G89.29 [place] [id number] [place] [address] Dec, Other chronic pain G89.29 [place] [address] [place] [address] Nov, Other chronic pain G89.29 [facility] [id number] [place] [address] Nov, [facility] [id number] [place] [address] Nov, [facility] [id number] [place] [address] October, Other chronic pain G89.29 ; Pain in right knee M25.561 ; Pain in left knee M25.562 and Abdominal pain, left lower quadrant R10.32 [facility] [id number] [place] [address] October, [facility] [id number] [place] [address] October, Splenomegaly R16.1 ; Neutropenia, unspecified type D70.9 and Temporary low platelet count D69.6 [facility] [address] [place] [address] October, [facility] [id number] [place] [address] October, Pancytopenia D61.818 [facility] [id number] [place] [address] October, [facility] [address] [place] [address] October, [facility] [id number] [place] [address] October, Pancytopenia D61.818 [facility] [id number] [place] [address] Sep, Other chronic pain G89.29 ; Pain in left knee M25.562 ; Pain in right knee M25.561 and Abdominal pain, left lower quadrant R10.32 [facility] [id number] [place] [address] Sep, Edema of left lower extremity R60.0 ; Essential hypertension I10 ; Morbid (severe) obesity due to excess calories E66.01 ; Body mass index (BMI) of 40.0-44.9 in adult Z68.41 and Hiatal hernia K44.9 [facility] [id number] [place] [address] Aug, [place] [id number] [place] [address] Aug, [place] [id number] [place] [address] Jul, Pain in right shoulder M25.511 [place] [id number] [place] [address] 05 Jul, 2017 [facility] [id number] [place] [address] Jul, Localized edema R60.0 and BMI 40.0-44.9, adult Z68.41 [place] [id number] [place] [address] Jul, [place] [id number] [place] [address] Jun, Edema of left lower extremity R60.0 ; Essential hypertension I10 ; Family history of coronary artery disease Z82.49 ; Morbid (severe) obesity due to excess calories E66.01 and Body mass index (BMI) of 45.0-49.9 in adult Z68.42 [place] [id number] [place] [address] Jun, Other chronic pain G89.29 [place] [id number] [place] [address] Jun, Pain in right shoulder M25.511 [place] [address] [address] Jun, Other ulcerative colitis without complication K51.80 [facility] [id number] [place] [address] May, [facility] [id number] [place] [address] May, GERD with esophagitis K21.0 ; Other ulcerative colitis without complication K51.80 and Other chest pain R07.89 [facility] [id number] [place] [address] May, [facility] [id number] [place] [address] May, Left leg swelling M79.89 [facility] [id number] [place] [address] Apr, Pain in right shoulder M25.511 [facility] [address] [address] Apr, Pain in right shoulder M25.511 [facility] [id number] [place] [address] Mar, [facility] [id number] [place] [address] Mar, Pain in right shoulder M25.511 [facility] [id number] [place] [address] Mar, [facility] [id number] [place] [address] Mar, [facility] [id number] [place] [address] Feb, Pain in right shoulder M25.511 [facility] [id number] [place] [address] Jan, Pain in right shoulder M25.511 [facility] [address] [address] Jan, [facility] [id number] [place] [address] Dec, Pain in right shoulder M25.511 [facility] [id number] [place] [address] Nov, Pain in right shoulder M25.511 [facility] [id number] [place] [address] Nov, Pain in right shoulder M25.511 [facility] [id number] [place] [address] October, Pain in right shoulder M25.511 [facility] [id number] [place] [address] Sep, Pain in right shoulder M25.511 [facility] [id number] [place] [address] Aug, Pain in right shoulder M25.511 [facility] [id number] [place] [address] Jul, Pain in right shoulder M25.511 [facility] [id number] [place] [address] Jul, Pain in left shoulder M25.512 [facility] [id number] [place] [address] Jul, Other chronic pain G89.29 [facility] [id number] [place] [address] 09 Jul, 2016 Pain in right shoulder M25.511 ; Other chronic pain G89.29 ; Pain in left shoulder M25.512 and Gastroesophageal reflux disease with esophagitis K21.0 [facility] [id number] [place] [address] Jun, [facility] [id number] [place] [address] May, [facility] [address], [place] [address] May, [facility] [address], [place] [address] 15 Apr, 2016 [facility] [address], [place] [address] Mar, [facility] [id number] [place] [address] 22 Feb, 2016 [facility] [address] [place] [address] Feb, [facility] [id number] [place] [address] 12 Feb, 2016 [facility] [id number] [place] [address] Feb, [facility] [id number] [place] [address] 15 Jan, 2016 [facility] [address] [place] [address] Dec, Pain in left shoulder M25.512 [facility] [address], [place] [address] Dec, Gastroesophageal reflux disease, esophagitis presence not specified K21.9 [facility] [address], [place] [address] Nov, Pain in left shoulder M25.512 [facility] [address], [place] [address] October, Pain in left shoulder M25.512 [facility] [address], [place] [address] Sep, Shoulder pain, left M25.512 [facility] [address], [place] [address] 29 Mar, 2016 Pain in right shoulder M25.511 and Other chronic pain G89.29 [facility] [address] [facility] [id number], [place] [address] Aug, Shoulder pain, right M25.511 and GERD (gastroesophageal reflux disease) K21.9 [facility] [address] [facility] [id number] [address] Nov, [facility] [id number] [place] [address] Sep, [facility] [address] [facility] [id number], [place] [address] Sep, [facility] [id number] [place] [address] Jul, [facility] [address] [place] [address] Jul, [facility] [id number] [place] [address] Jul, [facility] [id number] [address] Jul, [facility] [address], [place] [address] Jul, [facility] [address], [place] [address] Jul, [facility] [id number], [place] [address] Jun, [facility] [id number], [place] [address] Jun, [facility] [address], [place] [address] Apr, [facility] [address], [place] [address] Apr, [facility] [id number] [place] [address] Apr, [facility] [place] [facility] [address] [id number] [place] [address] 12 Feb, 2014 [facility] [place] [facility] [address] [id number] [place] [address] 12 Feb, 2014 [facility] [place] [facility] [address] [id number] [place] [address] Feb, [facility] [place] [facility] [address] [id number] [place] [address] Feb, [facility] [place] [facility] [address] [id number] [place] [address] Aug, [facility] [place] [facility] [address] [id number] [place] [address] Aug, [facility] [place] [facility] [address] [id number] [place] [address] Mar, [facility] [place] [facility] [address] [id number] [place] [address] Mar, [facility] [place] [facility] [address] [id number] [place] [address] Mar, [facility] [place] [facility] [address] [id number] [place] [address] Mar, [facility] [place] [facility] [address] [id number] [place] [address] 09 Feb, 2013 [facility] [place] [facility] [address] [id number] [place] [address] 06 Feb, 2012 [facility] [place] [facility] [address] [id number] [place] [address] Feb, [facility] [place] [facility] [address] [id number] [place] [address] Jan, [facility] [place] [facility] [address] [id number] [place] [address] Jan, [facility] [address] [facility] [id number], [place] [address] 26 Dec, 2012 [facility] [address] [facility] [id number], [place] [address] Dec, [facility] [address] [facility] [id number], [place] [address] Nov, [facility] [address], [place] [address] 14 Nov, 2012 [facility] [address] [facility] [id number], [place] [address] Jan, [facility] [address], [place] [address] Jan, [facility] [address], [place] [address] Aug, [facility] [address], [place] [address] Jun, [facility] [id number], [place] [address] Jun, [facility] [address], [place] [address] Apr, [facility] [id number], [place] [address] 17 Feb, 2010 IMMUNIZATIONS No Known Immunizations SOCIAL HISTORY Never Assessed REASON FOR VISIT [facility] PLAN OF CARE VITAL SIGNS MEDICATIONS Unknown Medications RESULTS No Results PROCEDURES No Known procedures INSTRUCTIONS MEDICATIONS ADMINISTERED No Known Medications MEDICAL (GENERAL) HISTORY Type Description Date Medical History colitis Medical History right shoulder pain Medical History anup cell leukemia Medical History chemo Surgical History Appendectomy Surgical History Abscess drained and removed Hospitalization History surgery Hospitalization History dehydration Hospitalization History chest pain, pancytopenia, slenomegaly-[facility] 10/25/17 Hospitalization History Chest pains 05/2018-06/2017
--- OUTSIDE RECORDS SUMMARY | 2018-12-20 11:01 | XMS REPORT ---
Author Author Migration, Doctor Organization [facility] Address Unknown Phone Unavailable Care Team Providers Care Fire Control Technician G Name Role Phone Migration, Doctor Unavailable Unavailable PROBLEMS Type Condition ICD9-CM Code ITP05-IZ Code Onset Dates Condition Status SNOMED Code Problem Other chronic pain G89.29 Active 91686352 Problem Other ulcerative colitis without complication K51.80 Active 89793648 Problem Gastroesophageal reflux disease with esophagitis K21.0 Active 248932915 Problem Body mass index (BMI) of 45.0-49.9 in adult Z68.42 Active 609265239 Problem Morbid (severe) obesity due to excess calories E66.01 Active 27503156514579 Problem Other chronic pain G89.29 Active 26079821 Problem Leukemia in remission, 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 Active 66745169 Problem Essential hypertension I10 Active 51234292 Problem BMI 40.0-44.9, adult Z68.41 Active 290906126 Problem GERD with esophagitis K21.0 Active 362855721 Problem Neutropenia, unspecified type D70.9 Active 490411606 Problem Temporary low platelet count D69.6 Active 500866537 Problem Pancytopenia D61.818 Active 222850574 Problem Allergic rhinitis due to food J30.5 Active 229279064 ALLERGIES No Information ENCOUNTERS Encounter Location Date Diagnosis [place] [id number] [place] [address] October, Edema of left lower extremity R60.0 ; Essential hypertension I10 ; BMI 40.0-44.9, adult Z68.41 and Leukemia in remission, 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 [place] [address] [place] [id number] [address] October, Gastroesophageal reflux disease with esophagitis K21.0 [place] [address] [place] [id number] [address] Sep, Gastroesophageal reflux disease with esophagitis K21.0 [place] [address] [place] [address] Sep, Muscle spasm M62.838 ; Family history of diabetes mellitus Z83.3 ; Frequent urination R35.0 ; Pain in left knee M25.562 ; Pain in right knee M25.561 and Morbid obesity E66.01 [place] [address] [place] [id number] [place] [address] Aug, [place] [address] [place] [id number] [place] [address] Aug, [place] [address] [place] [id number] [place] [address] Aug, Pancytopenia D61.818 [facility] [address] [place] [id number] [place] [address] Aug, Acute eczema L30.9 [facility] [address] [address] Aug, [facility] [address] [place] [id number] [place] [address] Aug, Pancytopenia D61.818 [place] [address] [place] [id number] [place] [address] Jul, Frequent headaches R51 [place] [address] [place] [id number] [place] [address] Jul, [place] [address] [place] [id number] [place] [address] Jul, Allergic rhinitis due to food J30.5 ; Gastroesophageal reflux disease with esophagitis K21.0 ; Pain in right knee M25.561 ; Pain in left knee M25.562 and Other chronic pain G89.29 [place] [address] [place] [id number] [place] [address] Jun, Pain of left leg M79.605 [place] [address] [place] [id number] [place] [address] May, Pain of left leg M79.605 [place] [address] [place] [id number] [place] [address] May, Other chronic pain G89.29 [place] [address] [place] [id number] [place] [address] May, Pain of left leg M79.605 [facility] [address] [place] [id number] [place] [address] Apr, Acute upper respiratory infection J06.9 [facility] [place] [address] [place] [id number] [place] [address] Apr, [place] [address] [place] [id number] [place] [address] Apr, [place] [address] [place] [id number] [place] [address] Mar, Pain of left leg M79.605 and Pain in right leg M79.604 [facility] [place] [id number] [place] [address] Mar, [facility] [place] [address] [place] [id number] [place] [address] Mar, Rash R21 [place] [address] [place] [id number] [place] [address] Mar, [place] [address] [place] [id number] [place] [address] Feb, Leukemia in remission, 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 [facility] [place] [id number] [place] [address] Feb, [place] eye disease of right eye H10.021 and BMI 40.0-44.9, adult Z68.41 [place] [id number] [place] [address] Jan, Other chronic pain G89.29 [facility] [address] [place] [address] Dec, Other chronic pain G89.29 [facility] [address] [place] [id number] [place] [address] Nov, Other chronic pain G89.29 [facility] [address] [place] [id number] [place] [address] Nov, [facility] [address] [place] [id number] [place] [address] Nov, [facility] [address] [address] October, Other chronic pain G89.29 ; Pain in right knee M25.561 ; Pain in left knee M25.562 and Abdominal pain, left lower quadrant R10.32 [facility] [address] [place] [id number] [place] [address] October, [facility] [address] [place] [id number] [place] [address] October, Splenomegaly R16.1 ; Neutropenia, unspecified type D70.9 and Temporary low platelet count D69.6 [facility] [address] [place] [address] October, [facility] [address] [place] [address] October, Pancytopenia D61.818 [facility] [address] [place] [id number] [place] [address] October, [facility] [address] [place] [id number] [place] [address] October, [facility] [address] [place] [id number] [place] [address] October, Pancytopenia D61.818 [facility] [address] [place] [id number] [place] [address] Sep, Other chronic pain G89.29 ; Pain in left knee M25.562 ; Pain in right knee M25.561 and Abdominal pain, left lower quadrant R10.32 [facility] [address] [address] Sep, Edema of left lower extremity R60.0 ; Essential hypertension I10 ; Morbid (severe) obesity due to excess calories E66.01 ; Body mass index (BMI) of 40.0-44.9 in adult Z68.41 and Hiatal hernia K44.9 [place] [address] [address] Aug, [place] [address] [address] Aug, [place] [address] [address] Jul, Pain in right shoulder M25.511 [place] [address] [address] Jul, [facility] [address] [place] [id number] [place] [address] 02 Jul, 2017 Localized edema R60.0 and BMI 40.0-44.9, adult Z68.41 [facility] [address] [place] [id number] [place] [address] Jul, [facility] [address] [place] [id number] [place] [address] Jun, Edema of left lower extremity R60.0 ; Essential hypertension I10 ; Family history of coronary artery disease Z82.49 ; Morbid (severe) obesity due to excess calories E66.01 and Body mass index (BMI) of 45.0-49.9 in adult Z68.42 [facility] [address] [place] [id number] [place] [address] Jun, Other chronic pain G89.29 [facility] [address] [place] [id number] [place] [address] Jun, Pain in right shoulder M25.511 [facility] [address] [place] [id number] [place] [address] Jun, Other ulcerative colitis without complication K51.80 [facility] [address] [place] [id number] [place] [address] May, [facility] [address] [address] May, GERD with esophagitis K21.0 ; Other ulcerative colitis without complication K51.80 and Other chest pain R07.89 [place] [address] [place] [id number] [place] [address] May, [facility] [address] [place] [id number] [place] [address] May, Left leg swelling M79.89 [facility] [address] [place] [id number] [place] [address] Apr, Pain in right shoulder M25.511 [place] [address] [place] [id number] [place] [address] Apr, Pain in right shoulder M25.511 [facility] [address] [place] [id number] [place] [address] Mar, [facility] [address] [place] [id number] [place] [address] Mar, Pain in right shoulder M25.511 [facility] [address] [place] [id number] [place] [address] Mar, [facility] [address] [place] [id number] [place] [address] Mar, [facility] [address] [place] [id number] [place] [address] Feb, Pain in right shoulder M25.511 [facility] [address] [place] [address] Jan, Pain in right shoulder M25.511 [facility] [address] [place] [id number] [place] [address] Jan, [facility] [address] [place] [id number] [place] [address] Dec, Pain in right shoulder M25.511 [facility] [address] [place] [id number] [place] [address] Nov, Pain in right shoulder M25.511 [facility] [address] [place] [id number] [place] [address] Nov, Pain in right shoulder M25.511 [facility] [address] [place] [id number] [place] [address] October, Pain in right shoulder M25.511 [facility] [address] [place] [id number] [place] [address] Sep, Pain in right shoulder M25.511 [facility] [address] [place] [id number] [place] [address] Aug, Pain in right shoulder M25.511 [facility] [address] [place] [id number] [place] [address] Jul, Pain in right shoulder M25.511 [facility] [address] [place] [id number] [place] [address] Jul, Pain in left shoulder M25.512 [facility] [address] [place] [address] Jul, Other chronic pain G89.29 [facility] [address] [place] [id number] [place] [address] 09 Jul, 2016 Pain in right shoulder M25.511 ; Other chronic pain G89.29 ; Pain in left shoulder M25.512 and Gastroesophageal reflux disease with esophagitis K21.0 [facility] [address], [place] [address] Jun, [facility] [address], [place] [address] May, [facility] [address], [place] [address] May, [facility] [address] [place] [id number] [place] [address] Apr, [facility] [address] [place] [address] Mar, [facility] [address] [place] [id number] [place] [address] Feb, [facility] [address] [place] [id number] [place] [address] Feb, [facility] [address] [place] [id number] [place] [address] Feb, [facility] [address] [place] [address] Feb, [facility] [address] [place] [address] Jan, [facility] [address], [place] [address] Dec, Pain in left shoulder M25.512 [facility] [address] [place] [address] Dec, Gastroesophageal reflux disease, esophagitis presence not specified K21.9 [facility] [address] [place] [id number] [place] [address] Nov, Pain in left shoulder M25.512 [facility] [address], [place] [address] October, Pain in left shoulder M25.512 [facility] [address] [place] [id number], [place] [address] Sep, Shoulder pain, left M25.512 [facility] [address] [place] [id number] [place] [address] 29 Aug, 2015 Pain in right shoulder M25.511 and Other chronic pain G89.29 [facility] [address] [place] [id number] [place] [address] 07 Aug, 2015 Shoulder pain, right M25.511 and GERD (gastroesophageal reflux disease) K21.9 [facility] [address] [place] [id number] [place] [address] Nov, [facility] [address] [place] [id number] [place] [address] Sep, [facility] [address] [place] [id number] [place] [address] Sep, [facility] [address] [place] [id number] [place] [address] Jul, [facility] [address], [place] [address] Jul, [facility] [address] [place] [address] Jul, [facility] [address], [place] [address] Jul, [facility] [address] [place] [id number] [place] [address] Jul, [facility] [address], [place] [address] Jul, [facility] [address] [place] [id number] [place] [address] Jun, [facility] [address], [place] [address] Jun, [facility] [address] [place] [id number] [place] [address], [place] [address] Apr, [facility] [place] [facility] [address] [id number] [place] [address] Apr, [facility] [place] [facility] [address] [id number] [place] [address] Apr, [facility] [place] [facility] [address] [id number] [place] [address] 12 Feb, 2014 [facility] [place] [facility] [address] [id number] [place] [address] 12 Feb, 2014 [facility] [place] [facility] [address] [id number] [place] [address] Feb, [facility] [place] [facility] [address] [id number] [place] [address] Feb, [facility] [place] [facility] [address] [id number] [place] [address] Aug, [facility] [place] [facility] [address] [id number] [place] [address] Aug, [facility] [place] [facility] [address] [id number] [place] [address] Mar, [facility] [place] [facility] [address] [id number] [place] [address] Mar, [facility] [place] [facility] [address] [id number] [place] [address] 16 Mar, 2013 [facility] [place] [facility] [address] [id number] [place] [address] 16 Mar, 2012 [facility] [place] [facility] [address] [id number] [place] [address] 09 Feb, 2012 [facility] [place] [facility] [address] [id number] [place] [address] 06 Feb, 2012 [facility] [place] [facility] [address] [id number] [place] [address] 03 Feb2012 [facility] [place] [facility] [address], [place] [address] Jan, [facility] [address], [place] [address] Jan, [facility] [address], [place] [address] Dec, [facility] [address], [place] [address] Dec, [facility] [address] [facility] [id number] [address] Nov, [facility] [address], [place] [address] Nov, [facility] [address], [place] [address] Jan, [facility] [address], [place] [address] Jan, [facility] [address], [place] [address] Aug, [facility] [address], [place] [address] Jun, [facility] [address] [place] [id number] [address] Jun, [facility] [address] [id number] [address] Apr, [facility] [address] [address] [id number] [address] 17 Feb, 2010 IMMUNIZATIONS No Known Immunizations SOCIAL HISTORY Never Assessed REASON FOR VISIT EMR-[facility] PLAN OF CARE VITAL SIGNS MEDICATIONS Unknown Medications RESULTS No Results PROCEDURES No Known procedures INSTRUCTIONS MEDICATIONS ADMINISTERED No Known Medications MEDICAL (GENERAL) HISTORY Type Description Date Medical History colitis Medical History right shoulder pain Medical History anup cell leukemia Medical History chemo Surgical History Appendectomy Surgical History Abscess drained and removed Hospitalization History surgery Hospitalization History dehydration Hospitalization History chest pain, pancytopenia, slenomegaly-[facility] 10/25/17 Hospitalization History Chest pains 05/2018-06/2017
--- OUTSIDE RECORDS SUMMARY | 2018-12-20 11:02 | XMS REPORT ---
Author Author Migration, Doctor Organization 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 Name Role Phone Migration, Doctor Unavailable Unavailable PROBLEMS Type Condition ICD9-CM Code VXP36-DT Code Onset Dates Condition Status SNOMED Code Problem Gastroesophageal reflux disease with esophagitis K21.0 Active 440953042 Problem Other chronic pain G89.29 Active 54402700 Problem Morbid (severe) obesity due to excess calories E66.01 Active 74709404454508 Problem Body mass index (BMI) of 45.0-49.9 in adult Z68.42 Active 292066294 Problem Essential hypertension I10 Active 39975045 Problem Pancytopenia D61.818 Active 329627362 Problem GERD with esophagitis K21.0 Active 722247086 Problem Allergic rhinitis due to food J30.5 Active 149751915 Problem Other ulcerative colitis without complication K51.80 Active 05920164 Problem Body mass index (BMI) of 40.0-44.9 in adult Z68.41 Active 971457475 Problem Other chronic pain G89.29 Active 94311830 Problem Neutropenia, unspecified type D70.9 Active 681584358 Problem Temporary low platelet count D69.6 Active 348361062 ALLERGIES No Information ENCOUNTERS Encounter Location Date Diagnosis [address] [id number] [address] October, [facility] [id number] [place] [address] Sep, [facility] [address] [address] Aug, [facility] [id number] [place] [address] Aug, [facility] [id number] [address] Aug, Pancytopenia D61.818 [facility] [id number] [place] [address] Aug, Acute eczema L30.9 [facility] [id number] [place] [address] Aug, [facility] [id number] [place] [address] Aug, Pancytopenia D61.818 [facility] [address] [address] Jul, Frequent headaches R51 [place] [address] [address] Jul, [place] [id number] [place] [address] Jul, Allergic rhinitis due to food J30.5 ; Gastroesophageal reflux disease with esophagitis K21.0 ; Pain in right knee M25.561 ; Pain in left knee M25.562 and Other chronic pain G89.29 [place] [id number] [place] [address] Jun, Pain of left leg M79.605 [place] [id number] [place] [address] May, Pain of left leg M79.605 [place] [id number] [place] [address] May, Other chronic pain G89.29 [place] [id number] [place] [address] May, Pain of left leg M79.605 [facility] [id number] [place] [address] Apr, Acute upper respiratory infection J06.9 [facility] [id number] [place] [address] Apr, [place] [address] [address] Apr, [facility] [id number] [place] [address] Mar, Pain of left leg M79.605 and Pain in right leg M79.604 [facility] [id number] [place] [address] Mar, Rash R21 [facility] [id number] [place] [address] Mar, [facility] [id number] [place] [address] Mar, [facility] [id number] [place] [address] Feb, Leukemia in remission, 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 [facility] [id number] [place] [address] Feb, [place] eye disease of right eye H10.021 and BMI 40.0-44.9, adult Z68.41 [place] [id number] [place] [address] Jan, Other chronic pain G89.29 [place] [id number] [place] [address] Dec, Other chronic pain G89.29 [facility] [id number] [place] [address] Nov, Other chronic pain G89.29 [place] [id number] [place] [address] Nov, [facility] [id number] [place] [address] Nov, [facility] [id number] [place] [address] October, Other chronic pain G89.29 ; Pain in right knee M25.561 ; Pain in left knee M25.562 and Abdominal pain, left lower quadrant R10.32 [facility] [id number] [place] [address] October, [facility] [id number] [place] [address] October, Splenomegaly R16.1 ; Neutropenia, unspecified type D70.9 and Temporary low platelet count D69.6 [facility] [id number] [place] [address] October, [place] [id number] [place] [address] October, Pancytopenia D61.818 [place] [id number] [place] [address] October, [place] [id number] [place] [address] October, [facility] [id number] [place] [address] October, Pancytopenia D61.818 [facility] [id number] [place] [address] Sep, Other chronic pain G89.29 ; Pain in left knee M25.562 ; Pain in right knee M25.561 and Abdominal pain, left lower quadrant R10.32 [facility] [id number] [place] [address] Sep, Edema of left lower extremity R60.0 ; Essential hypertension I10 ; Morbid (severe) obesity due to excess calories E66.01 ; Body mass index (BMI) of 40.0-44.9 in adult Z68.41 and Hiatal hernia K44.9 [facility] [id number] [place] [address] Aug, [place] [address] [place] [address] Aug, [place] [id number] [place] [address] Jul, Pain in right shoulder M25.511 [place] [id number] [place] [address] Jul, [facility] [address] [address] Jul, Localized edema R60.0 and BMI 40.0-44.9, adult Z68.41 [place] [address] [address] Jul, [place] [address] [address] Jun, Edema of left lower extremity R60.0 ; Essential hypertension I10 ; Family history of coronary artery disease Z82.49 ; Morbid (severe) obesity due to excess calories E66.01 and Body mass index (BMI) of 45.0-49.9 in adult Z68.42 [place] [id number] [place] [address] Jun, Other chronic pain G89.29 [place] [address] [address] Jun, Pain in right shoulder M25.511 [place] [id number] [place] [address] Jun, Other ulcerative colitis without complication K51.80 [facility] [id number] [place] [address] May, [place] [address] [address] May, GERD with esophagitis K21.0 ; Other ulcerative colitis without complication K51.80 and Other chest pain R07.89 [place] [address] [place] [address] May, [facility] [id number] [place] [address] May, Left leg swelling M79.89 [facility] [id number] [place] [address] 14 Apr, 2017 Pain in right shoulder M25.511 [facility] [id number] [place] [address] Apr, Pain in right shoulder M25.511 [facility] [id number] [place] [address] Mar, [facility] [id number] [place] [address] Mar, Pain in right shoulder M25.511 [facility] [id number] [place] [address] Mar, [facility] [id number] [place] [address] Mar, [facility] [id number] [place] [address] Feb, Pain in right shoulder M25.511 [facility] [id number] [place] [address] Jan, Pain in right shoulder M25.511 [facility] [id number] [place] [address] Jan, [facility] [address] [place] [address] Dec, Pain in right shoulder M25.511 [facility] [id number] [place] [address] Nov, Pain in right shoulder M25.511 [facility] [id number] [place] [address] Nov, Pain in right shoulder M25.511 [facility] [address] [address] October, Pain in right shoulder M25.511 [facility] [address] [place] [address] Sep, Pain in right shoulder M25.511 [facility] [address] [place] [address] Aug, Pain in right shoulder M25.511 [facility] [address] [place] [address] Jul, Pain in right shoulder M25.511 [facility] [id number] [place] [address] Jul, Pain in left shoulder M25.512 [facility] [id number] [place] [address] Jul, Other chronic pain G89.29 [facility] [id number] [place] [address] Jul, Pain in right shoulder M25.511 ; Other chronic pain G89.29 ; Pain in left shoulder M25.512 and Gastroesophageal reflux disease with esophagitis K21.0 [facility] [address] [address] Jun, [facility] [id number] [address] May, [facility] [address] [address] May, [facility] [id number] [place] [address] Apr, [facility] [address] [address] Mar, [facility] [id number] [place] [address] 22 Feb, 2016 [facility] [address] [place] [address] 13 Feb, 2016 [facility] [id number] [place] [address] Feb, [facility] [id number] [place] [address] Feb, [facility] [id number] [place] [address] Jan, [facility] [id number] [place] [address] Dec, Pain in left shoulder M25.512 [facility] [id number] [place] [address] Dec, Gastroesophageal reflux disease, esophagitis presence not specified K21.9 [facility] [id number] [place] [address] Nov, Pain in left shoulder M25.512 [facility] [id number] [place] [address] October, Pain in left shoulder M25.512 [facility] [id number] [place] [address] Sep, Shoulder pain, left M25.512 [facility] [id number] [place] [address] Aug, Pain in right shoulder M25.511 and Other chronic pain G89.29 [facility] [id number] [place] [address] 07 Aug, 2015 Shoulder pain, right M25.511 and GERD (gastroesophageal reflux disease) K21.9 [facility] [id number] [place] [address] 08 Nov, 2014 [facility] [id number] [place] [address] 14 Sep, 2014 [facility] [place] [facility] [address] [id number] [place] [address] 13 Sep, 2014 [facility] [place] [facility] [address] [id number] [place] [address] Jul, [facility] [place] [facility] [address] [id number] [place] [address] Jul, [facility] [place] [facility] [address] [id number] [place] [address] Jul, [facility] [place] [facility] [address] [id number] [place] [address] Jul, [facility] [place] [facility] [address] [id number] [place] [address] Jul, [facility] [place] [facility] [address] [id number] [place] [address] Jul, [facility] [place] [facility] [address] [id number] [place] [address] Jun, [facility] [place] [facility] [address] [id number] [place] [address] Jun, [facility] [place] [facility] [address] [id number] [place] [address] Apr, [facility] [place] [facility] [address] [id number] [place] [address] Apr, [facility] [place] [facility] [address] [id number] [address] Apr, [facility] [place] [facility] [address] [id number] [place] [address] Feb, [facility] [place] [facility] [address] [id number] [place] [address] Feb, [facility] [place] [facility] [address] [id number] [place] [address] Feb, [facility] [place] [facility] [address] [id number] [place] [address] 11 Feb, 2014 [facility] [address] [id number] [place] [address] Aug, [facility] [place] [facility] [address] [id number] [place] [address] Aug, [facility] [address] [id number] [place] [address] Mar, [facility] [place] [facility] [address] [id number] [place] [address] Mar, [facility] [address] [id number] [place] [address] Mar, [facility] [place] [facility] [address] [id number] [place] [address] Mar, [facility] [address] [id number] [place] [address] Feb, [facility] [address] [id number] [place] [address] 06 Feb, 2013 [facility] [place] [facility] [address] [id number] [place] [address] Feb, [facility] [address] [id number] [place] [address] 30 Jan, 2013 [facility] [place] [facility] [address] [id number] [place] [address] Jan, [facility] [place] [facility] [address] [id number] [place] [address] Dec, [facility] [place] [facility] [address] [id number] [place] [address] 15 Dec, 2012 [facility] [place] [facility] [address] [id number] [place] [address] Nov, [facility] [place] [facility] [address] [id number] [place] [address] Nov, [facility] [address] [facility] [id number] [address] Jan, [facility] [id number] [address] Jan, [facility] [id number] [address] Aug, [facility] [address] [address] Jun, [facility] [address] [facility] [id number] [address] Jun, [facility] [address] [address] Apr, [facility] [id number] [address] Feb, IMMUNIZATIONS No Known Immunizations SOCIAL HISTORY Never Assessed REASON FOR VISIT [facility] [place] PLAN OF CARE VITAL SIGNS MEDICATIONS Medication Instructions Dosage Frequency Start Date End Date Duration Status metformin 500 mg take 1 tablet by Oral route 2 times per day with morning and evening meals for diabetes Jul, Active Carafate 1 gram 1 tablet by Oral route 4 times per day Jun, Active PredniSONE 10 mg 1 Tablet by Oral route 2 times per day for 5 days Suggested dosing time 8 am and noon. Do not take after 3 pm Mar, Active Levaquin 750 mg 1 tablet by Oral route every 24 hours for 10 days Mar, Active Hyoscyamine Sulfate 0.125 mg 1 tablet by Oral route 4 times per day PRN Jun, Active Zithromax Z-Ben 250 mg take 2 tablets (500 mg) by oral route once daily for 1 day then 1 tablet (250 mg) by oral route once daily for 4 days Jun, Active Metoclopramide HCl 5 mg 1 tablet by Oral route 4 times per day Jul, Active MethylPREDNISolone 4 mg by Oral route every day for 6 days as directed per dose pack Jun, Active Protonix 40 mg take 1 tablet (40 mg) by oral route 2 times per day Jul, Active RESULTS No Results PROCEDURES No Known procedures INSTRUCTIONS MEDICATIONS ADMINISTERED No Known Medications MEDICAL (GENERAL) HISTORY Type Description Date Medical History colitis Medical History right shoulder pain Medical History anup cell leukemia Medical History chemo Surgical History Appendectomy Surgical History Abscess drained and removed Hospitalization History surgery Hospitalization History dehydration Hospitalization History chest pain, pancytopenia, slenomegaly-[facility] 10/25/17 Hospitalization History Chest pains 05/2018-06/2017
--- OUTSIDE RECORDS SUMMARY | 2018-12-20 11:02 | XMS REPORT ---
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 [employer] Name Role Phone Migration, Doctor Unavailable Unavailable PROBLEMS Type Condition ICD9-CM Code MIU73-FQ Code Onset Dates Condition Status SNOMED Code Problem Gastroesophageal reflux disease with esophagitis K21.0 Active 193372430 Problem Other chronic pain G89.29 Active 17818940 Problem Morbid (severe) obesity due to excess calories E66.01 Active 11658794580135 Problem Body mass index (BMI) of 45.0-49.9 in adult Z68.42 Active 475601735 Problem Essential hypertension I10 Active 79671912 Problem Pancytopenia D61.818 Active 520553238 Problem GERD with esophagitis K21.0 Active 415297021 Problem Allergic rhinitis due to food J30.5 Active 049213884 Problem Other ulcerative colitis without complication K51.80 Active 22129994 Problem Body mass index (BMI) of 40.0-44.9 in adult Z68.41 Active 954918836 Problem Other chronic pain G89.29 Active 52068179 Problem Neutropenia, unspecified type D70.9 Active 945249238 Problem Temporary low platelet count D69.6 Active 317710189 ALLERGIES No Information ENCOUNTERS Encounter Location Date Diagnosis [facility] [id number], [place] [address] October, [facility] [facility] [id number] [place] [address] October, [place] [id number] [place] [address] Sep, Gastroesophageal reflux disease with esophagitis K21.0 [facility] [id number] [place] [address] Sep, Muscle spasm M62.838 ; Family history of diabetes mellitus Z83.3 ; Frequent urination R35.0 ; Pain in left knee M25.562 ; Pain in right knee M25.561 and Morbid obesity E66.01 [facility] [id number] [place] [address] Aug, [facility] [id number] [place] [address] Aug, [facility] [id number] [place] [address] Aug, Pancytopenia D61.818 [facility] [id number] [place] [address] Aug, Acute eczema L30.9 [facility] [id number] [place] [address] Aug, [facility] [id number] [place] [address] Aug, Pancytopenia D61.818 [facility] [id number] [place] [address] Jul, Frequent headaches R51 [facility] [id number] [place] [address] Jul, [facility] [id number] [place] [address] Jul, Allergic rhinitis due to food J30.5 ; Gastroesophageal reflux disease with esophagitis K21.0 ; Pain in right knee M25.561 ; Pain in left knee M25.562 and Other chronic pain G89.29 [facility] [address] [place] [address] Jun, Pain of left leg M79.605 [facility] [id number] [place] [address] May, Pain of left leg M79.605 [facility] [id number] [place] [address] May, Other chronic pain G89.29 [facility] [address] [place] [address] May, Pain of left leg M79.605 [facility] [id number] [place] [address] Apr, [facility] [id number] [place] [address] Apr, Acute upper respiratory infection J06.9 [facility] [id number] [place] [address] Apr, [facility] [id number] [place] [address] Mar, Pain of left leg M79.605 and Pain in right leg M79.604 [facility] [id number] [place] [address] Mar, Rash R21 [facility] [id number] [place] [address] Mar, [facility] [id number] [place] [address] Mar, [facility] [id number] [place] [address] Feb, Leukemia in remission, 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 [facility] [id number] [place] [address] Feb, [place] eye disease of right eye H10.021 and BMI 40.0-44.9, adult Z68.41 [facility] [id number] [place] [address] Jan, Other chronic pain G89.29 [facility] [id number] [place] [address] Dec, Other chronic pain G89.29 [facility] [address] [place] [address] Nov, Other chronic pain G89.29 [facility] [id number] [place] [address] Nov, [facility] [id number] [place] [address] Nov, [facility] [id number] [place] [address] October, Other chronic pain G89.29 ; Pain in right knee M25.561 ; Pain in left knee M25.562 and Abdominal pain, left lower quadrant R10.32 [facility] [id number] [place] [address] October, [facility] [id number] [place] [address] October, Splenomegaly R16.1 ; Neutropenia, unspecified type D70.9 and Temporary low platelet count D69.6 [facility] [address] [place] [address] October, [facility] [id number] [place] [address] October, Pancytopenia D61.818 [facility] [id number] [place] [address] October, [facility] [address] [place] [address] October, [facility] [id number] [place] [address] October, Pancytopenia D61.818 [facility] [id number] [place] [address] Sep, Other chronic pain G89.29 ; Pain in left knee M25.562 ; Pain in right knee M25.561 and Abdominal pain, left lower quadrant R10.32 [facility] [id number] [place] [address] Sep, Edema of left lower extremity R60.0 ; Essential hypertension I10 ; Morbid (severe) obesity due to excess calories E66.01 ; Body mass index (BMI) of 40.0-44.9 in adult Z68.41 and Hiatal hernia K44.9 [facility] [id number] [place] [address] Aug, [facility] [id number] [place] [address] Aug, [facility] [id number] [place] [address] Jul, Pain in right shoulder M25.511 [facility] [id number] [place] [address] 05 Jul, 2017 [facility] [id number] [place] [address] Jul, Localized edema R60.0 and BMI 40.0-44.9, adult Z68.41 [facility] [id number] [place] [address] Jul, [facility] [id number] [place] [address] Jun, Edema of left lower extremity R60.0 ; Essential hypertension I10 ; Family history of coronary artery disease Z82.49 ; Morbid (severe) obesity due to excess calories E66.01 and Body mass index (BMI) of 45.0-49.9 in adult Z68.42 [facility] [id number] [place] [address] Jun, Other chronic pain G89.29 [facility] [id number] [place] [address] Jun, Pain in right shoulder M25.511 [facility] [address] [address] Jun, Other ulcerative colitis without complication K51.80 [facility] [id number] [place] [address] May, [facility] [id number] [place] [address] May, GERD with esophagitis K21.0 ; Other ulcerative colitis without complication K51.80 and Other chest pain R07.89 [facility] [id number] [place] [address] May, [facility] [id number] [place] [address] May, Left leg swelling M79.89 [facility] [id number] [place] [address] Apr, Pain in right shoulder M25.511 [facility] [address] [address] Apr, Pain in right shoulder M25.511 [facility] [id number] [place] [address] Mar, [facility] [id number] [place] [address] Mar, Pain in right shoulder M25.511 [facility] [id number] [place] [address] Mar, [facility] [id number] [place] [address] Mar, [facility] [address] [place] [address] Feb, Pain in right shoulder M25.511 [facility] [id number] [place] [address] Jan, Pain in right shoulder M25.511 [facility] [address] [address] Jan, [facility] [id number] [place] [address] Dec, Pain in right shoulder M25.511 [facility] [id number] [place] [address] Nov, Pain in right shoulder M25.511 [facility] [id number] [place] [address] Nov, Pain in right shoulder M25.511 [facility] [id number] [place] [address] October, Pain in right shoulder M25.511 [facility] [id number] [place] [address] Sep, Pain in right shoulder M25.511 [facility] [id number] [place] [address] Aug, Pain in right shoulder M25.511 [facility] [id number] [place] [address] Jul, Pain in right shoulder M25.511 [facility] [id number] [place] [address] Jul, Pain in left shoulder M25.512 [facility] [id number] [place] [address] Jul, Other chronic pain G89.29 [facility] [id number] [place] [address] 09 Jul, 2016 Pain in right shoulder M25.511 ; Other chronic pain G89.29 ; Pain in left shoulder M25.512 and Gastroesophageal reflux disease with esophagitis K21.0 [facility] [address] [place] [address] Jun, [facility] [id number] [place] [address] May, [facility] [address], [place] [address] May, [facility] [address], [place] [address] 15 Apr, 2016 [facility] [address], [place] [address] Mar, [facility] [id number] [place] [address] 22 Feb, 2016 [facility] [address] [place] [address] Feb, [facility] [id number] [place] [address] 12 Feb, 2016 [facility] [id number] [place] [address] Feb, [facility] [id number] [place] [address] 15 Jan, 2016 [facility] [address] [place] [address] Dec, Pain in left shoulder M25.512 [facility] [address], [place] [address] Dec, Gastroesophageal reflux disease, esophagitis presence not specified K21.9 [facility] [address], [place] [address] Nov, Pain in left shoulder M25.512 [facility] [address], [place] [address] October, Pain in left shoulder M25.512 [facility] [address], [place] [address] Sep, Shoulder pain, left M25.512 [facility] [address], [place] [address] 29 Mar, 2016 Pain in right shoulder M25.511 and Other chronic pain G89.29 [facility] [address] [facility] [id number], [place] [address] Aug, Shoulder pain, right M25.511 and GERD (gastroesophageal reflux disease) K21.9 [facility] [address] [facility] [id number], [place] [address] Nov, [facility] [id number] [place] [address] Sep, [facility] [address] [facility] [id number], [place] [address] Sep, [facility] [address] [id number] [place] [address] Jul, [facility] [address] [place] [address] Jul, [facility] [id number] [place] [address] Jul, [facility] [id number], [place] [address] Jul, [facility] [address], [place] [address] Jul, [facility] [address], [place] [address] Jul, [facility] [id number], [place] [address] Jun, [facility] [id number], [place] [address] Jun, [facility] [address], [place] [address] Apr, [facility] [address], [place] [address] Apr, [facility] [id number] [place] [address] Apr, [facility] [place] [facility] [address] [id number] [place] [address] 12 Feb, 2014 [facility] [place] [facility] [address] [id number] [place] [address] 12 Feb, 2014 [facility] [place] [facility] [address] [id number] [place] [address] Feb, [facility] [place] [facility] [address] [id number] [place] [address] Feb, [facility] [place] [facility] [address] [id number] [place] [address] Aug, [facility] [place] [facility] [address] [id number] [place] [address] Aug, [facility] [place] [facility] [address] [id number] [place] [address] Mar, [facility] [place] [facility] [address] [id number] [place] [address] Mar, [facility] [place] [facility] [address] [id number] [place] [address] Mar, [facility] [place] [facility] [address] [id number] [place] [address] Mar, [facility] [place] [facility] [address] [id number] [place] [address] 09 Feb, 2013 [facility] [place] [facility] [address] [id number] [place] [address] 06 Feb, 2012 [facility] [place] [facility] [address] [id number] [place] [address] Feb, [facility] [place] [facility] [address] [id number] [place] [address] Jan, [facility] [place] [facility] [address] [id number] [place] [address] Jan, [facility] [address] [facility] [id number], [place] [address] 26 Dec, 2012 [facility] [address] [facility] [id number], [place] [address] Dec, [facility] [address] [facility] [id number], [place] [address] Nov, [facility] [address], [place] [address] 14 Nov, 2012 [facility] [address] [facility] [id number], [place] [address] Jan, [facility] [address], [place] [address] Jan, [facility] [address], [place] [address] Aug, [facility] [address], [place] [address] Jun, [facility] [id number], [place] [address] Jun, [facility] [address], [place] [address] Apr, [facility] [id number], [place] [address] 17 Feb, 2010 IMMUNIZATIONS No Known Immunizations SOCIAL HISTORY Never Assessed REASON FOR VISIT [facility] PLAN OF CARE VITAL SIGNS MEDICATIONS Unknown Medications RESULTS No Results PROCEDURES No Known procedures INSTRUCTIONS MEDICATIONS ADMINISTERED No Known Medications MEDICAL (GENERAL) HISTORY Type Description Date Medical History colitis Medical History right shoulder pain Medical History anup cell leukemia Medical History chemo Surgical History Appendectomy Surgical History Abscess drained and removed Hospitalization History surgery Hospitalization History dehydration Hospitalization History chest pain, pancytopenia, slenomegaly-[facility] 10/25/17 Hospitalization History Chest pains 05/2018-06/2017
--- OUTSIDE RECORDS SUMMARY | 2018-12-20 11:03 | XMS REPORT ---
Author Author AMY HALEY Organization [facility] Address [address] [place] [address] Care Team Providers Care Online Affiliate Marketing Manager Name Role Phone AMY HALEY Unavailable PROBLEMS Type Condition ICD9-CM Code [id number] Code Onset Dates Condition Status SNOMED Code Problem Gastroesophageal reflux disease with esophagitis K21.0 Active 953747499 Problem Other chronic pain G89.29 Active 35797363 Problem Morbid (severe) obesity due to excess calories E66.01 Active 00518281259396 Problem Body mass index (BMI) of 45.0-49.9 in adult Z68.42 Active 221338358 Problem Essential hypertension I10 Active 94709908 Problem Pancytopenia D61.818 Active 324358265 Problem GERD with esophagitis K21.0 Active 660720687 Problem Allergic rhinitis due to food J30.5 Active 629667115 Problem Other ulcerative colitis without complication K51.80 Active 36999378 Problem Body mass index (BMI) of 40.0-44.9 in adult Z68.41 Active 019765903 Problem Other chronic pain G89.29 Active 86284426 Problem Neutropenia, unspecified type D70.9 Active 550766899 Problem Temporary low platelet count D69.6 Active 138798371 ALLERGIES No Information ENCOUNTERS Encounter Location Date Diagnosis [facility] [id number] [address] Sep, [facility] [address] [address] Aug, [facility] [address] [address] Aug, [facility] [id number] [address] 06 Aug, 2018 Pancytopenia D61.818 [facility] [id number] [place] [address] Aug, Acute eczema L30.9 [facility] [id number] [place] [address] Aug, [facility] [id number] [place] [address] Aug, Pancytopenia D61.818 [place] [address] [address] Jul, Frequent headaches R51 [place] [address] [address] Jul, [place] [id number] [place] [address] Jul, Allergic rhinitis due to food J30.5 ; Gastroesophageal reflux disease with esophagitis K21.0 ; Pain in right knee M25.561 ; Pain in left knee M25.562 and Other chronic pain G89.29 [place] [id number] [place] [address] Jun, Pain of left leg M79.605 [place] [id number] [place] [address] May, Pain of left leg M79.605 [place] [id number] [place] [address] May, Other chronic pain G89.29 [place] [id number] [place] [address] May, Pain of left leg M79.605 [facility] [id number] [place] [address] Apr, Acute upper respiratory infection J06.9 [facility] [id number] [place] [address] Apr, [facility] [address] [place] [address] Apr, [facility] [id number] [place] [address] Mar, Pain of left leg M79.605 and Pain in right leg M79.604 [facility] [id number] [place] [address] Mar, Rash R21 [facility] [id number] [place] [address] Mar, [facility] [id number] [place] [address] Mar, [facility] [id number] [place] [address] Feb, Leukemia in remission, 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 [facility] [id number] [place] [address] Feb, [place] eye disease of right eye H10.021 and BMI 40.0-44.9, adult Z68.41 [place] [id number] [place] [address] Jan, Other chronic pain G89.29 [place] [id number] [place] [address] Dec, Other chronic pain G89.29 [place] [id number] [place] [address] Nov, Other chronic pain G89.29 [facility] [id number] [place] [address] Nov, [facility] [id number] [place] [address] Nov, [facility] [id number] [place] [address] October, Other chronic pain G89.29 ; Pain in right knee M25.561 ; Pain in left knee M25.562 and Abdominal pain, left lower quadrant R10.32 [facility] [id number] [place] [address] October, [facility] [address] [address] October, Splenomegaly R16.1 ; Neutropenia, unspecified type D70.9 and Temporary low platelet count D69.6 [facility] [id number] [place] [address] October, [place] [address] [address] October, Pancytopenia D61.818 [place] [address] [address] October, [place] [address] [address] October, [facility] [id number] [place] [address] October, Pancytopenia D61.818 [place] [address] [address] Sep, Other chronic pain G89.29 ; Pain in left knee M25.562 ; Pain in right knee M25.561 and Abdominal pain, left lower quadrant R10.32 [place] [id number] [place] [address] Sep, Edema of left lower extremity R60.0 ; Essential hypertension I10 ; Morbid (severe) obesity due to excess calories E66.01 ; Body mass index (BMI) of 40.0-44.9 in adult Z68.41 and Hiatal hernia K44.9 [facility] [id number] [place] [address] Aug, [place] [address] [address] Aug, [place] [address] [place] [address] 16 Jul, 2017 Pain in right shoulder M25.511 [facility] [id number] [place] [address] 05 Jul, 2017 [facility] [id number] [place] [address] 02 Jul, 2017 Localized edema R60.0 and BMI 40.0-44.9, adult Z68.41 [place] [id number] [place] [address] Jul, [place] [id number] [place] [address] Jun, Edema of left lower extremity R60.0 ; Essential hypertension I10 ; Family history of coronary artery disease Z82.49 ; Morbid (severe) obesity due to excess calories E66.01 and Body mass index (BMI) of 45.0-49.9 in adult Z68.42 [place] [id number] [place] [address] Jun, Other chronic pain G89.29 [place] [id number] [place] [address] 15 Jun, 2017 Pain in right shoulder M25.511 [place] [id number] [place] [address] Jun, Other ulcerative colitis without complication K51.80 [facility] [id number] [place] [address] May, [place] [address] [address] May, GERD with esophagitis K21.0 ; Other ulcerative colitis without complication K51.80 and Other chest pain R07.89 [place] [id number] [place] [address] May, [facility] [address] [place] [address] May, Left leg swelling M79.89 [facility] [id number] [place] [address] Apr, Pain in right shoulder M25.511 [facility] [id number] [place] [address] Apr, Pain in right shoulder M25.511 [facility] [id number] [place] [address] Mar, [facility] [id number] [place] [address] Mar, Pain in right shoulder M25.511 [facility] [id number] [place] [address] Mar, [facility] [id number] [place] [address] Mar, [facility] [id number] [place] [address] Feb, Pain in right shoulder M25.511 [facility] [id number] [place] [address] Jan, Pain in right shoulder M25.511 [facility] [id number] [place] [address] Jan, [facility] [id number] [place] [address] Dec, Pain in right shoulder M25.511 [facility] [id number] [place] [address] Nov, Pain in right shoulder M25.511 [facility] [id number] [place] [address] Nov, Pain in right shoulder M25.511 [facility] [address] [address] October, Pain in right shoulder M25.511 [facility] [id number] [place] [address] Sep, Pain in right shoulder M25.511 [facility] [id number] [place] [address] Aug, Pain in right shoulder M25.511 [facility] [id number] [place] [address] Jul, Pain in right shoulder M25.511 [facility] [id number] [place] [address] Jul, Pain in left shoulder M25.512 [facility] [id number] [place] [address] Jul, Other chronic pain G89.29 [facility] [id number] [place] [address] 09 Jul, 2016 Pain in right shoulder M25.511 ; Other chronic pain G89.29 ; Pain in left shoulder M25.512 and Gastroesophageal reflux disease with esophagitis K21.0 [facility] [address] [address] Jun, [facility] [id number] [place] [address] May, [facility] [id number] [place] [address] May, [facility] [id number] [place] [address] Apr, [facility] [id number] [place] [address] Mar, [facility] [address] [address] Feb, [place] [address] [address] 13 Feb, 2016 [facility] [id number] [place] [address] 12 Feb, 2016 [facility] [id number] [place] [address] 06 Feb, 2016 [facility] [id number] [place] [address] Jan, [facility] [id number] [place] [address] Dec, Pain in left shoulder M25.512 [facility] [id number] [place] [address] Dec, Gastroesophageal reflux disease, esophagitis presence not specified K21.9 [facility] [id number] [place] [address] Nov, Pain in left shoulder M25.512 [facility] [id number] [place] [address] October, Pain in left shoulder M25.512 [facility] [id number] [place] [address] Sep, Shoulder pain, left M25.512 [facility] [id number] [place] [address] Aug, Pain in right shoulder M25.511 and Other chronic pain G89.29 [facility] [id number] [place] [address] 07 Aug, 2015 Shoulder pain, right M25.511 and GERD (gastroesophageal reflux disease) K21.9 [facility] [id number] [place] [address] 08 Nov, 2014 [facility] [id number] [place] [address] 14 Sep, 2014 [facility] [address] [facility] [id number] [place] [address] 13 Sep, 2014 [facility] [place] [facility] [address] [id number] [place] [address] Jul, 2014 [facility] [place] [facility] [address] [id number] [place] [address] Jul, 2014 [facility] [place] [facility] [address] [id number] [place] [address] Jul, 2014 [facility] [place] [facility] [address] [id number] [place] [address] Jul, 2014 [facility] [place] [facility] [address] [id number] [place] [address] Jul, 2014 [facility] [place] [facility] [address] [id number] [place] [address] Jul, [facility] [place] [facility] [address] [id number] [place] [address] Jun, [facility] [place] [facility] [address] [id number] [place] [address] Jun, [facility] [place] [facility] [address] [id number] [place] [address] Apr, [facility] [place] [facility] [address] [id number] [place] [address] Apr, [facility] [place] [facility] [address] [id number] [place] [address] Apr, [facility] [place] [facility] [address] [id number] [place] [address] Feb, [facility] [place] [facility] [address] [id number] [place] [address] 12 Feb, 2014 [facility] [place] [facility] [address] [id number] [place] [address] 11 Feb, 2014 [facility] [place] [facility] [address] [id number] [place] [address] Feb, [facility] [place] [facility] [address] [id number] [place] [address] Aug, [facility] [place] [facility] [address] [id number] [place] [address] Aug, [facility] [place] [facility] [address] [id number] [place] [address] Mar, [facility] [place] [facility] [address] [id number] [place] [address] Mar, [facility] [place] [facility] [address] [id number] [place] [address] Mar, [facility] [place] [facility] [address] [id number] [place] [address] Mar, [facility] [place] [facility] [address] [id number] [place] [address] Feb, [facility] [place] [facility] [address] [id number] [place] [address] Feb, [facility] [place] [facility] [address] [id number] [place] [address] Feb, [facility] [place] [facility] [address] [id number] [place] [address] Jan, [facility] [place] [facility] [address] [id number] [place] [address] Jan, [facility] [place] [facility] [address] [id number] [place] [address] Dec, [facility] [place] [facility] [address] [id number] [place] [address] Dec, [facility] [place] [facility] [address] [id number] [place] [address] Nov, [facility] [place] [facility] [address] [id number] [place] [address] Nov, [facility] [place] [facility] [address] [facility] [id number] [place] [address] Jan, [facility] [address] [facility] [id number] [address] Jan, [facility] [id number] [address] Aug, [facility] [id number] [address] Jun, [facility] [id number] [address] Jun, [facility] [id number] [address] Apr, [facility] [id number] [address] Feb, IMMUNIZATIONS No Known Immunizations SOCIAL HISTORY Never Assessed REASON FOR VISIT Triage PLAN OF CARE VITAL SIGNS Height 69 in 2018-08-24 Weight 268.2 lbs 2018-08-24 Temperature 97.4 degrees Fahrenheit 2018-08-24 Heart Rate 86 bpm 2018-08-24 Respiratory Rate 16 2018-08-24 BMI 39.60 kg/m2 2018-08-24 Blood pressure systolic 120 mmHg 2018-08-24 Blood pressure diastolic 78 mmHg 2018-08-24 MEDICATIONS Unknown Medications RESULTS No Results PROCEDURES [...]
--- OUTSIDE RECORDS SUMMARY | 2018-12-20 11:03 | XMS REPORT ---
Author Author AMY HALEY Organization [facility] Address [address] [place] [address] Care Team Providers Care Battery Container Inspector Name Role Phone AMY HALEY Unavailable PROBLEMS Type Condition ICD9-CM Code YTP41-IB Code Onset Dates Condition Status SNOMED Code Problem Gastroesophageal reflux disease with esophagitis K21.0 Active 004743555 Problem Other chronic pain G89.29 Active 96818068 Problem Morbid (severe) obesity due to excess calories E66.01 Active 26805672037040 Problem Body mass index (BMI) of 45.0-49.9 in adult Z68.42 Active 870150398 Problem Essential hypertension I10 Active 92255581 Problem Pancytopenia D61.818 Active 990876972 Problem GERD with esophagitis K21.0 Active 919001061 Problem Allergic rhinitis due to food J30.5 Active 768905539 Problem Other ulcerative colitis without complication K51.80 Active 72947974 Problem Body mass index (BMI) of 40.0-44.9 in adult Z68.41 Active 573837302 Problem Other chronic pain G89.29 Active 43320990 Problem Neutropenia, unspecified type D70.9 Active 065139373 Problem Temporary low platelet count D69.6 Active 339034206 ALLERGIES No Information ENCOUNTERS Encounter Location Date Diagnosis [facility] [id number] [address] Sep, [facility] [address] [address] Aug, [facility] [address] [address] Aug, [facility] [id number] [address] 06 Aug, 2018 Pancytopenia D61.818 [facility] [id number] [place] [address] Aug, Acute eczema L30.9 [facility] [id number] [place] [address] Aug, [facility] [id number] [place] [address] Aug, Pancytopenia D61.818 [address] [place] [address] [address] Jul, Frequent headaches R51 [place] [address] [address] Jul, [place] [id number] [place] [address] Jul, Allergic rhinitis due to food J30.5 ; Gastroesophageal reflux disease with esophagitis K21.0 ; Pain in right knee M25.561 ; Pain in left knee M25.562 and Other chronic pain G89.29 [place] [id number] [place] [address] Jun, Pain of left leg M79.605 [place] [id number] [place] [address] May, Pain of left leg M79.605 [place] [id number] [place] [address] May, Other chronic pain G89.29 [place] [id number] [place] [address] May, Pain of left leg M79.605 [facility] [id number] [place] [address] Apr, Acute upper respiratory infection J06.9 [facility] [id number] [place] [address] Apr, [facility] [address] [place] [address] Apr, [facility] [id number] [place] [address] Mar, Pain of left leg M79.605 and Pain in right leg M79.604 [facility] [id number] [place] [address] Mar, Rash R21 [facility] [id number] [place] [address] Mar, [facility] [id number] [place] [address] Mar, [facility] [id number] [place] [address] Feb, Leukemia in remission, 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 [facility] [id number] [place] [address] Feb, 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 and BMI 40.0-44.9, adult Z68.41 [place] [id number] [place] [address] Jan, Other chronic pain G89.29 [place] [id number] [place] [address] Dec, Other chronic pain G89.29 [place] [id number] [place] [address] Nov, Other chronic pain G89.29 [facility] [id number] [place] [address] Nov, [facility] [id number] [place] [address] Nov, [facility] [id number] [place] [address] October, Other chronic pain G89.29 ; Pain in right knee M25.561 ; Pain in left knee M25.562 and Abdominal pain, left lower quadrant R10.32 [facility] [id number] [place] [address] October, [facility] [address] [address] October, Splenomegaly R16.1 ; Neutropenia, unspecified type D70.9 and Temporary low platelet count D69.6 [facility] [id number] [place] [address] October, [place] [address] [address] October, Pancytopenia D61.818 [place] [address] [address] October, [place] [address] [address] October, [facility] [id number] [place] [address] October, Pancytopenia D61.818 [place] [address] [address] Sep, Other chronic pain G89.29 ; Pain in left knee M25.562 ; Pain in right knee M25.561 and Abdominal pain, left lower quadrant R10.32 [place] [id number] [place] [address] Sep, Edema of left lower extremity R60.0 ; Essential hypertension I10 ; Morbid (severe) obesity due to excess calories E66.01 ; Body mass index (BMI) of 40.0-44.9 in adult Z68.41 and Hiatal hernia K44.9 [facility] [id number] [place] [address] Aug, [place] [address] [address] Aug, [place] [id number] [place] [address] 16 Jul, 2017 Pain in right shoulder M25.511 [facility] [id number] [place] [address] 05 Jul, 2017 [facility] [id number] [place] [address] 02 Jul, 2017 Localized edema R60.0 and BMI 40.0-44.9, adult Z68.41 [place] [id number] [place] [address] Jul, [place] [id number] [place] [address] Jun, Edema of left lower extremity R60.0 ; Essential hypertension I10 ; Family history of coronary artery disease Z82.49 ; Morbid (severe) obesity due to excess calories E66.01 and Body mass index (BMI) of 45.0-49.9 in adult Z68.42 [place] [id number] [place] [address] Jun, Other chronic pain G89.29 [place] [id number] [place] [address] 15 Jun, 2017 Pain in right shoulder M25.511 [place] [id number] [place] [address] Jun, Other ulcerative colitis without complication K51.80 [facility] [id number] [place] [address] May, [place] [address] [address] May, GERD with esophagitis K21.0 ; Other ulcerative colitis without complication K51.80 and Other chest pain R07.89 [place] [id number] [place] [address] May, [facility] [address] [place] [address] May, Left leg swelling M79.89 [facility] [id number] [place] [address] Apr, Pain in right shoulder M25.511 [facility] [id number] [place] [address] Apr, Pain in right shoulder M25.511 [facility] [id number] [place] [address] Mar, [facility] [id number] [place] [address] Mar, Pain in right shoulder M25.511 [facility] [id number] [place] [address] Mar, [facility] [id number] [place] [address] Mar, [facility] [id number] [place] [address] Feb, Pain in right shoulder M25.511 [facility] [id number] [place] [address] Jan, Pain in right shoulder M25.511 [facility] [id number] [place] [address] Jan, [facility] [id number] [place] [address] Dec, Pain in right shoulder M25.511 [facility] [id number] [place] [address] Nov, Pain in right shoulder M25.511 [facility] [id number] [place] [address] Nov, Pain in right shoulder M25.511 [facility] [address] [address] October, Pain in right shoulder M25.511 [facility] [id number] [place] [address] Sep, Pain in right shoulder M25.511 [facility] [id number] [place] [address] Aug, Pain in right shoulder M25.511 [facility] [id number] [place] [address] Jul, Pain in right shoulder M25.511 [facility] [id number] [place] [address] Jul, Pain in left shoulder M25.512 [facility] [id number] [place] [address] Jul, Other chronic pain G89.29 [facility] [id number] [place] [address] 09 Jul, 2016 Pain in right shoulder M25.511 ; Other chronic pain G89.29 ; Pain in left shoulder M25.512 and Gastroesophageal reflux disease with esophagitis K21.0 [facility] [address] [address] Jun, [facility] [id number] [place] [address] May, [facility] [id number] [place] [address] May, [facility] [id number] [place] [address] Apr, [facility] [id number] [place] [address] Mar, [facility] [address] [address] Feb, [place] [address] [address] 13 Feb, 2016 [facility] [id number] [place] [address] 12 Feb, 2016 [facility] [id number] [place] [address] 06 Feb, 2016 [facility] [id number] [place] [address] Jan, [facility] [id number] [place] [address] Dec, Pain in left shoulder M25.512 [facility] [id number] [place] [address] Dec, Gastroesophageal reflux disease, esophagitis presence not specified K21.9 [facility] [id number] [place] [address] Nov, Pain in left shoulder M25.512 [facility] [id number] [place] [address] October, Pain in left shoulder M25.512 [facility] [id number] [place] [address] Sep, Shoulder pain, left M25.512 [facility] [id number] [place] [address] Aug, Pain in right shoulder M25.511 and Other chronic pain G89.29 [facility] [id number] [place] [address] 07 Aug, 2015 Shoulder pain, right M25.511 and GERD (gastroesophageal reflux disease) K21.9 [facility] [id number] [place] [address] 08 Nov, 2014 [facility] [id number] [place] [address] 14 Sep, 2014 [facility] [address] [facility] [id number] [place] [address] 13 Sep, 2014 [facility] [place] [facility] [address] [id number] [place] [address] Jul, 2014 [facility] [place] [facility] [address] [id number] [place] [address] Jul, 2014 [facility] [place] [facility] [address] [id number] [place] [address] Jul, 2014 [facility] [place] [facility] [address] [id number] [place] [address] Jul, 2014 [facility] [place] [facility] [address] [id number] [place] [address] Jul, 2014 [facility] [place] [facility] [address] [id number] [place] [address] Jul, [facility] [place] [facility] [address] [id number] [place] [address] Jun, [facility] [place] [facility] [address] [id number] [place] [address] Jun, [facility] [place] [facility] [address] [id number] [place] [address] Apr, [facility] [place] [facility] [address] [id number] [place] [address] Apr, [facility] [place] [facility] [address] [id number] [place] [address] Apr, [facility] [place] [facility] [address] [id number] [place] [address] Feb, [facility] [place] [facility] [address] [id number] [place] [address] 12 Feb, 2014 [facility] [place] [facility] [address] [id number] [place] [address] 11 Feb, 2014 [facility] [place] [facility] [address] [id number] [place] [address] Feb, [facility] [place] [facility] [address] [id number] [place] [address] Aug, [facility] [place] [facility] [address] [id number] [place] [address] Aug, [facility] [place] [facility] [address] [id number] [place] [address] Mar, [facility] [place] [facility] [address] [id number] [place] [address] Mar, [facility] [place] [facility] [address] [id number] [place] [address] Mar, [facility] [place] [facility] [address] [id number] [place] [address] Mar, [facility] [place] [facility] [address] [id number] [place] [address] Feb, [facility] [place] [facility] [address] [id number] [place] [address] Feb, [facility] [place] [facility] [address] [id number] [place] [address] Feb, [facility] [place] [facility] [address] [id number] [place] [address] Jan, [facility] [place] [facility] [address] [id number] [place] [address] Jan, [facility] [place] [facility] [address] [id number] [place] [address] Dec, [facility] [place] [facility] [address] [id number] [place] [address] Dec, [facility] [place] [facility] [address] [id number] [place] [address] Nov, [facility] [place] [facility] [address] [id number] [place] [address] Nov, [facility] [place] [facility] [id number] [address] Jan, [facility] [id number] [address] Jan, [facility] [id number] [address] Aug, [facility] [id number] [address] Jun, [facility] [address] [address] Jun, [facility] [id number] [address] Apr, [facility] [id number] [address] Feb, IMMUNIZATIONS No Known Immunizations SOCIAL HISTORY Never Assessed REASON FOR VISIT lab PLAN OF CARE VITAL SIGNS MEDICATIONS Unknown Medications RESULTS No Results PROCEDURES Procedure Date Ordered Result Body Site VENIPUNCT, ROUTINE* August 24, 2018 COMPLETE CBC W/AUTO DIFF WBC August 24, 2018 COMPREHEN METABOLIC PANEL August 24, 2018 INSTRUCTIONS MEDICATIONS ADMINISTERED No Known Medications MEDICAL (GENERAL) HISTORY Type Description Date Medical History colitis Medical History right shoulder pain Medical History anup cell leukemia Medical History chemo Surgical History Appendectomy Surgical History Abscess drained and removed Hospitalization History surgery Hospitalization History dehydration Hospitalization History chest pain, pancytopenia, slenomegaly-[facility] 10/25/17 Hospitalization History Chest pains 05/2018-06/2017
--- OUTSIDE RECORDS SUMMARY | 2018-12-20 11:04 | XMS REPORT ---
Author Author AMY HALEY Organization [facility] Address [address] [place] [address] Care Team Providers Care Dance Historian Name Role Phone AMY HALEY Unavailable PROBLEMS Type Condition ICD9-CM Code TTB44-YR Code Onset Dates Condition Status SNOMED Code Problem Gastroesophageal reflux disease with esophagitis K21.0 Active 808662063 Problem Other chronic pain G89.29 Active 32940278 Problem Morbid (severe) obesity due to excess calories E66.01 Active 49734838719687 Problem Body mass index (BMI) of 45.0-49.9 in adult Z68.42 Active 015254580 Problem Essential hypertension I10 Active 71425336 Problem Pancytopenia D61.818 Active 511663637 Problem GERD with esophagitis K21.0 Active 724300685 Problem Allergic rhinitis due to food J30.5 Active 757643161 Problem Other ulcerative colitis without complication K51.80 Active 06231019 Problem Body mass index (BMI) of 40.0-44.9 in adult Z68.41 Active 493117858 Problem Other chronic pain G89.29 Active 53523498 Problem Neutropenia, unspecified type D70.9 Active 373527586 Problem Temporary low platelet count D69.6 Active 490366890 ALLERGIES No Information ENCOUNTERS Encounter Location Date Diagnosis [facility] [id number] [address] Sep, [facility] [address] [address] Aug, [facility] [address] [address] Aug, [facility] [id number] [address] 06 Aug, 2018 Pancytopenia D61.818 [facility] [id number] [place] [address] Aug, Acute eczema L30.9 [facility] [id number] [place] [address] Aug, [facility] [id number] [place] [address] Aug, Pancytopenia D61.818 [place] [address] [address] Jul, Frequent headaches R51 [place] [address] [address] Jul, [place] [id number] [place] [address] Jul, Allergic rhinitis due to food J30.5 ; Gastroesophageal reflux disease with esophagitis K21.0 ; Pain in right knee M25.561 ; Pain in left knee M25.562 and Other chronic pain G89.29 [place] [id number] [place] [address] Jun, Pain of left leg M79.605 [place] [id number] [place] [address] May, Pain of left leg M79.605 [place] [id number] [place] [address] May, Other chronic pain G89.29 [place] [id number] [place] [address] May, Pain of left leg M79.605 [facility] [id number] [place] [address] Apr, Acute upper respiratory infection J06.9 [facility] [id number] [place] [address] Apr, [facility] [address] [place] [address] Apr, [facility] [id number] [place] [address] Mar, Pain of left leg M79.605 and Pain in right leg M79.604 [facility] [id number] [place] [address] Mar, Rash R21 [facility] [id number] [place] [address] Mar, [facility] [id number] [place] [address] Mar, [facility] [id number] [place] [address] Feb, Leukemia in remission, 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 [facility] [id number] [place] [address] Feb, [place] eye disease of right eye H10.021 and BMI 40.0-44.9, adult Z68.41 [place] [id number] [place] [address] Jan, Other chronic pain G89.29 [place] [id number] [place] [address] Dec, Other chronic pain G89.29 [place] [id number] [place] [address] Nov, Other chronic pain G89.29 [facility] [id number] [place] [address] Nov, [facility] [id number] [place] [address] Nov, [facility] [id number] [place] [address] October, Other chronic pain G89.29 ; Pain in right knee M25.561 ; Pain in left knee M25.562 and Abdominal pain, left lower quadrant R10.32 [facility] [id number] [place] [address] October, [facility] [address] [address] October, Splenomegaly R16.1 ; Neutropenia, unspecified type D70.9 and Temporary low platelet count D69.6 [facility] [id number] [place] [address] October, [place] [address] [address] October, Pancytopenia D61.818 [place] [address] [address] October, [place] [address] [address] October, [facility] [id number] [place] [address] October, Pancytopenia D61.818 [place] [address] [address] Sep, Other chronic pain G89.29 ; Pain in left knee M25.562 ; Pain in right knee M25.561 and Abdominal pain, left lower quadrant R10.32 [place] [id number] [place] [address] Sep, Edema of left lower extremity R60.0 ; Essential hypertension I10 ; Morbid (severe) obesity due to excess calories E66.01 ; Body mass index (BMI) of 40.0-44.9 in adult Z68.41 and Hiatal hernia K44.9 [facility] [id number] [place] [address] Aug, [place] [address] [address] Aug, [address] [address] [place] [address] 16 Jul, 2017 Pain in right shoulder M25.511 [facility] [id number] [place] [address] 05 Jul, 2017 [facility] [id number] [place] [address] 02 Jul, 2017 Localized edema R60.0 and BMI 40.0-44.9, adult Z68.41 [place] [id number] [place] [address] Jul, [place] [id number] [place] [address] Jun, Edema of left lower extremity R60.0 ; Essential hypertension I10 ; Family history of coronary artery disease Z82.49 ; Morbid (severe) obesity due to excess calories E66.01 and Body mass index (BMI) of 45.0-49.9 in adult Z68.42 [place] [id number] [place] [address] Jun, Other chronic pain G89.29 [place] [id number] [place] [address] 15 Jun, 2017 Pain in right shoulder M25.511 [place] [id number] [place] [address] Jun, Other ulcerative colitis without complication K51.80 [facility] [id number] [place] [address] May, [place] [address] [address] May, GERD with esophagitis K21.0 ; Other ulcerative colitis without complication K51.80 and Other chest pain R07.89 [place] [id number] [place] [address] May, [facility] [address] [place] [address] May, Left leg swelling M79.89 [facility] [id number] [place] [address] Apr, Pain in right shoulder M25.511 [facility] [id number] [place] [address] Apr, Pain in right shoulder M25.511 [facility] [id number] [place] [address] Mar, [facility] [id number] [place] [address] Mar, Pain in right shoulder M25.511 [facility] [id number] [place] [address] Mar, [facility] [id number] [place] [address] Mar, [facility] [id number] [place] [address] Feb, Pain in right shoulder M25.511 [facility] [id number] [place] [address] Jan, Pain in right shoulder M25.511 [facility] [id number] [place] [address] Jan, [facility] [id number] [place] [address] Dec, Pain in right shoulder M25.511 [facility] [id number] [place] [address] Nov, Pain in right shoulder M25.511 [facility] [id number] [place] [address] Nov, Pain in right shoulder M25.511 [facility] [address], [place] [address] October, Pain in right shoulder M25.511 [facility] [id number] [place] [address] Sep, Pain in right shoulder M25.511 [facility] [id number] [place] [address] Aug, Pain in right shoulder M25.511 [facility] [id number] [place] [address] Jul, Pain in right shoulder M25.511 [facility] [id number] [place] [address] Jul, Pain in left shoulder M25.512 [facility] [id number] [place] [address] Jul, Other chronic pain G89.29 [facility] [id number] [place] [address] 09 Jul, 2016 Pain in right shoulder M25.511 ; Other chronic pain G89.29 ; Pain in left shoulder M25.512 and Gastroesophageal reflux disease with esophagitis K21.0 [facility] [address] [address] Jun, [facility] [id number] [place] [address] May, [facility] [id number] [place] [address] May, [facility] [id number] [place] [address] Apr, [facility] [id number] [place] [address] Mar, [facility] [address], [place] [address] Feb, [address] [address] [address] 13 Feb, 2016 [facility] [id number] [place] [address] 12 Feb, 2016 [facility] [id number] [place] [address] 06 Feb, 2016 [facility] [id number] [place] [address] Jan, [facility] [id number] [place] [address] Dec, Pain in left shoulder M25.512 [facility] [id number] [place] [address] Dec, Gastroesophageal reflux disease, esophagitis presence not specified K21.9 [facility] [id number] [place] [address] Nov, Pain in left shoulder M25.512 [facility] [id number] [place] [address] October, Pain in left shoulder M25.512 [facility] [id number] [place] [address] Sep, Shoulder pain, left M25.512 [facility] [id number] [place] [address] Aug, Pain in right shoulder M25.511 and Other chronic pain G89.29 [facility] [id number] [place] [address] 07 Aug, 2015 Shoulder pain, right M25.511 and GERD (gastroesophageal reflux disease) K21.9 [facility] [id number] [place] [address] 08 Nov, 2014 [facility] [id number] [place] [address] 14 Sep, 2014 [facility] [address] [facility] [id number] [place] [address] 13 Sep, 2014 [facility] [place] [facility] [address] [id number] [place] [address] Jul, 2014 [facility] [place] [facility] [address] [id number] [place] [address] Jul, 2014 [facility] [place] [facility] [address] [id number] [place] [address] Jul, 2014 [facility] [place] [facility] [address] [id number] [place] [address] Jul, 2014 [facility] [place] [facility] [address] [id number] [place] [address] Jul, 2014 [facility] [place] [facility] [address] [id number] [place] [address] Jul, [facility] [place] [facility] [address] [id number] [place] [address] Jun, [facility] [place] [facility] [address] [id number] [place] [address] Jun, [facility] [place] [facility] [address] [id number] [place] [address] Apr, [facility] [place] [facility] [address] [id number] [place] [address] Apr, [facility] [place] [facility] [address] [id number] [place] [address] Apr, [facility] [place] [facility] [address] [id number] [place] [address] Feb, [facility] [place] [facility] [address] [id number] [place] [address] 12 Feb, 2014 [facility] [place] [facility] [address] [id number] [place] [address] 11 Feb, 2014 [facility] [place] [facility] [address] [id number] [place] [address] Feb, [facility] [place] [facility] [address] [id number] [place] [address] Aug, [facility] [place] [facility] [address] [id number] [place] [address] Aug, [facility] [place] [facility] [address] [id number] [place] [address] Mar, [facility] [place] [facility] [address] [id number] [place] [address] Mar, [facility] [place] [facility] [address] [id number] [place] [address] Mar, [facility] [place] [facility] [address] [id number] [place] [address] Mar, [facility] [place] [facility] [address] [id number] [place] [address] Feb, [facility] [place] [facility] [address] [id number] [place] [address] Feb, [facility] [place] [facility] [address] [id number] [place] [address] Feb, [facility] [place] [facility] [address] [id number] [place] [address] Jan, [facility] [place] [facility] [address] [id number] [place] [address] Jan, [facility] [place] [facility] [address] [id number] [place] [address] Dec, [facility] [place] [facility] [address] [id number] [place] [address] Dec, [facility] [place] [facility] [address] [id number] [place] [address] Nov, [facility] [place] [facility] [address] [id number] [place] [address] Nov, [facility] [place] [facility] [id number] [address] Jan, [facility] [id number] [address] Jan, [facility] [address] [address] Aug, [facility] [id number] [address] Jun, [facility] [address] [address] Jun, [facility] [id number] [address] Apr, [facility] [id number] [address] Feb, IMMUNIZATIONS No Known Immunizations SOCIAL HISTORY Never Assessed REASON FOR VISIT Moving Appt Up PLAN OF CARE VITAL SIGNS MEDICATIONS Unknown Medications RESULTS No Results PROCEDURES No Known procedures INSTRUCTIONS MEDICATIONS ADMINISTERED No Known Medications MEDICAL (GENERAL) HISTORY Type Description Date Medical History colitis Medical History right shoulder pain Medical History anup cell leukemia Medical History chemo Surgical History Appendectomy Surgical History Abscess drained and removed Hospitalization History surgery Hospitalization History dehydration Hospitalization History chest pain, pancytopenia, slenomegaly-[facility] 10/25/17 Hospitalization History Chest pains 05/2018-06/2017
--- NOTE | 2018-12-20 11:12 | Progress Note-Post Operative ---
Post-Operative Progess Note Surgeon (s)/Denial Resolution Specialist (s) Surgeon MARIAJOSE LUDWIG DO Denial Resolution Specialist: na Pre-Operative Diagnosis gerd, blood in stool, hx polyps hx erosive esophagitis Post-Operative Diagnosis small h/h, slight gastritis, ascending colon polyp Procedure & Operative Findings Date of Procedure 12/20/18 Procedure Performed/Findings egd c biopsies, colonoscopy c hot bx polypectomy Anesthesia Type per floor tiling professional Estimated Blood Loss Estimated blood loss (mL): none Specimens/Packing Specimens Removed antrum, ge, ascending colon polyp MARIAJOSE LUDWIG DO Dec 20, 2018 11:12
--- NOTE | 2018-12-20 11:13 | Discharge Inst-Simple/Standard ---
Discharge Inst-Standard Patient Instructions/Follow Up Plan of Care/Instructions/FU: 2 weeks Ángel Activity as Tolerated: Yes Discharge Diet: Regular Diet MARIAJOSE LUDWIG DO Dec 20, 2018 11:13
--- OUTSIDE RECORDS SUMMARY | 2018-12-20 11:22 | XMS REPORT | Continuity of Care Document ---
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 OTHER SPECIFIED SOFT TISSUE DISORDERS 10/04/2018 ALEX SOLER APRN Ot R60.0 LOCALIZED EDEMA 10/04/2018 XOCHILT PANCHAL MD Ot R60.0 LOCALIZED EDEMA 10/04/2018 LUDWIG DO, MARIAJOSE D Ot K21.0 GASTRO-ESOPHAGEAL REFLUX DISEASE WITH ES 10/04/2018 LUDWIG DO, MARIAJOSE D Ot K76.0 FATTY (CHANGE OF) LIVER, NOT ELSEWHERE C 10/04/2018 LUDWIG DO, MARIAJOSE D Ot K21.0 GASTRO-ESOPHAGEAL REFLUX DISEASE WITH ES 10/04/2018 AMY HALEY Ot R10.32 LEFT LOWER QUADRANT PAIN 12/13/2018 JOHANNA DOTY MD Ot 530.11 REFLUX ESOPHAGITIS 12/13/2018 JOHANNA DOTY MD Ot 530.3 ESOPHAGEAL STRICTURE 12/13/2018 JOHANNA DOTY MD Ot 530.5 DYSKINESIA OF ESOPHAGUS 12/13/2018 JOHANNA DOTY MD Ot 535.50 UNSP GASTRITIS GASTRODUODENITIS W/O ME 12/13/2018 JOHANNA DOTY MD Ot 535.60 DUODENITIS, WITHOUT MENTION OF HEMORRHAG 12/13/2018 JOHANNA DOTY MD Ot 553.3 DIAPHRAGMATIC HERNIA 12/13/2018 JOHANNA DOTY MD Ot 935.1 FOREIGN BODY ESOPHAGUS 12/13/2018 JOHANNA DOTY MD Ot E000.8 OTHER EXTERNAL CAUSE STATUS 12/13/2018 JOHANNA DOTY MD Ot E915 FB ENTERING OTH ORIFICE 12/13/2018 ALEX OSLER APRN Ot M79.89 OTHER SPECIFIED SOFT TISSUE DISORDERS 12/13/2018 ALEX SOLER APRN Ot R60.0 LOCALIZED EDEMA 12/13/2018 XOCHILT PANCHAL MD Ot R60.0 LOCALIZED EDEMA 12/13/2018 LUDWIG DO, MARIAJOSE D Ot K21.0 GASTRO-ESOPHAGEAL REFLUX DISEASE WITH ES 12/13/2018 LUDWIG DO MARIAJOSE D Ot K76.0 FATTY (CHANGE OF) LIVER, NOT ELSEWHERE C 12/13/2018 MARIAJOSE LUDWIG DO Ot K21.0 GASTRO-ESOPHAGEAL REFLUX DISEASE WITH ES 12/13/2018 AMY HALEY Ot R10.32 LEFT LOWER QUADRANT PAIN 12/13/2018 SANTOSH BEATTY Ot D61.818 OTHER PANCYTOPENIA 12/13/2018 SANTOSH BEATTY Yadira Ot E66.9 OBESITY, UNSPECIFIED 12/13/2018 SANTOSH BEATTY Yadira Ot K21.0 GASTRO-ESOPHAGEAL REFLUX DISEASE WITH ES 12/13/2018 SANTOSH BEATTY Yadira Ot R16.1 SPLENOMEGALY, NOT ELSEWHERE CLASSIFIED 12/13/2018 SANTOSH BEATTY Yadira Ot R59.0 LOCALIZED ENLARGED LYMPH NODES 12/13/2018 SANTOSH BEATYT Yadira Ot Z68.39 BODY MASS INDEX (BMI) 39.0-39.9, ADULT 12/13/2018 MARIAJOSE LUDWIG DO Ot Z01.818 ENCOUNTER FOR OTHER PREPROCEDURAL EXAMIN Procedures Code Description Performed By Performed On [facility] OLVIN VASQUEZ 12/10/2012 86.04 OTHER SKIN SUBQ [...] Automated erythrocyte mean corpuscular hemoglobin concentration measurement (mass/volume) 31 g/dL 32-36 Automated erythrocyte distribution width ratio 20.9 % 10.0- 14.5 Automated blood platelet count (count/volume) 33 10*3/uL 130- 400 Automated blood platelet mean volume measurement TNP 7.4- 10.4 Automated blood neutrophils/100 leukocytes 8 % 42-75 Automated blood lymphocytes/100 leukocytes 88 % 12-44 Blood monocytes/100 leukocytes 3 % 0-12 Automated blood eosinophils/100 leukocytes 1 % 0-10 Automated blood basophils/100 leukocytes 0 % 0-10 Blood neutrophils automated count (number/volume) 0.1 10*3 1.8-7.8 Blood lymphocytes automated count (number/volume) 1.3 10*3 1.0-4.0 Blood monocytes automated count (number/volume) 0.0 10*3 0.0- 1.0 Automated eosinophil count 0.0 10*3/uL 0.0-0.3 Automated [...] Serum or plasma aspartate aminotransferase measurement (enzymatic activity/volume) 18 U/L 5-34 Serum or plasma alanine aminotransferase measurement (enzymatic activity/volume) 12 U/L 0-55 Serum or plasma protein measurement (mass/volume) 8.1 g/dL 6.4-8.2 Serum or plasma albumin measurement (mass/volume) 4.3 g/dL 3.2-4.5 Magnesium - 10/25/17 04:38 Magnesium 2.5 mg/dL 1.8-2.4 Serum or plasma creatine kinase measurement (enzymatic activity/volume) - 10/25/17 04:38 Serum or plasma creatine kinase measurement (enzymatic activity/volume) 58 U/L 30-200 Serum or plasma creatine kinase MB measurement (enzymatic activity/volume) - 10/25/17 04:38 Serum or plasma creatine kinase MB measurement (enzymatic activity/volume) 0.6 ng/mL <6.6 Serum or plasma troponin i.cardiac measurement (mass/volume) - 10/25/17 04:38 Serum or plasma troponin i.cardiac measurement (mass/volume) < ng/mL <0.30 Serum or plasma amylase measurement (enzymatic activity/volume) - 10/25/17 04:38 Serum or plasma amylase measurement (enzymatic activity/volume) 79 U/L 25-125 Lipase - 10/25/17 04:38 Lipase 44 [...] or plasma troponin i.cardiac measurement (mass/volume) < ng/mL <0.30 Myoglobin, serum - 10/25/17 08:10 Myoglobin, serum 31.1 ng/mL 10.0-92.0 Complete urinalysis with reflex to culture - 10/25/17 09:15 Urine color determination YELLOW NRG Urine clarity determination CLEAR NRG Urine pH measurement by test strip 8 5-9 Specific gravity of urine by test strip 1.010 1.016-1.022 Urine protein assay by test strip, semi-quantitative [...] sediment leukocyte count by microscopy (number/high power field) NONE NRG Bacteria detection in urine sediment [...] Automated erythrocyte mean corpuscular hemoglobin concentration measurement (mass/volume) 31 g/dL 32-36 Automated erythrocyte distribution width ratio 21.1 % 10.0- 14.5 Automated blood platelet count (count/volume) 31 10*3/uL 130- 400 Automated blood platelet mean volume measurement TNP 7.4- 10.4 Automated blood neutrophils/100 leukocytes 10 % 42-75 Automated blood lymphocytes/100 leukocytes 84 % 12-44 Blood monocytes/100 leukocytes 0 % NRG Automated blood eosinophils/100 leukocytes 1 % 0-10 Automated blood basophils/100 leukocytes 0 % 0-10 Blood neutrophils automated count (number/volume) 0.1 10*3 1.8-7.8 Blood lymphocytes automated count (number/volume) 1.1 10*3 1.0-4.0 Blood monocytes automated count (number/volume) 0.1 10*3 0.0- 1.0 Automated eosinophil count 0.0 10*3/uL 0.0-0.3 Automated [...] NRG Blood reticulocytes count (number/volume) 38 10*9/L 24-90 Blood reticulocytes/100 erythrocytes 1.43 % 0.50-2.40 Serum or plasma troponin i.cardiac measurement (mass/volume) - 10/25/17 14:40 Serum or plasma troponin i.cardiac measurement (mass/volume) < ng/mL <0.30 Tick identification panel - 10/25/17 14:40 Serum Ehrlichia chaffeensis IgG antibody detection <1:16 <1:16 Serum Ehrlichia chaffeensis IgM antibody detection <1:10 <1:10 Serum Rickettsia rickettsii IgG antibody assay (units/volume) < <1:16 [place] spotted fever panel < <1:10 Francisella tularensis antibody assay 1:20 NRG LYME AB G M 0.21 % 0.00-0.89 Interpretation of Lyme disease antibody assay Negative Negative Hemoglobin A1c - 10/25/17 14:40 Blood hemoglobin A1C measurement (mass/volume) 5.6 % 4.0-5.6 MEAN BLOOD GLUCOSE 114 % <=126 Serum iron and total iron binding capacity panel - 10/25/17 14:40 Serum or plasma iron measurement (mass/volume) 141 % 40-180 Total iron binding capacity and transferrin saturation [...] Automated erythrocyte mean corpuscular hemoglobin concentration measurement (mass/volume) 31 g/dL 32-36 Automated erythrocyte distribution width ratio 21.1 % 10.0- 14.5 Automated blood platelet count (count/volume) 34 10*3/uL 130- 400 Automated blood platelet mean volume measurement TNP 7.4- 10.4 Comprehensive metabolic panel - 10/26/17 04:27 Serum [...] Serum or plasma aspartate aminotransferase measurement (enzymatic activity/volume) 16 U/L 5-34 Serum or plasma alanine aminotransferase measurement (enzymatic activity/volume) 10 U/L 0-55 Serum or plasma protein measurement (mass/volume) 7.2 g/dL 6.4-8.2 Serum or plasma albumin measurement (mass/volume) 3.9 g/dL 3.2-4.5 Lipid 1996 panel - 10/26/17 04:27 Serum or plasma triglyceride measurement (mass/volume) 68 mg/dL <150 Serum or plasma cholesterol measurement (mass/volume) 81 mg/dL < 200 Serum or plasma cholesterol in HDL measurement (mass/volume) 21 mg/dL 40-60 Cholesterol in LDL [mass/volume] in serum or plasma by direct assay 53 mg/dL 1-129 Serum or plasma cholesterol in VLDL measurement (mass/volume) 14 mg/dL 5-40 CMP - 10/29/17 09:27 GLUCOSE 90 mg/dL 65-99 UREA NITROGEN (BUN) 20 mg/dL 7-25 CREATININE 0.76 mg/dL 0.60-1.35 eGFR NON-AFR. ETHIOPIAN 113 mL/min/1.73m2 > OR=60 eGFR 130 mL/min/1.73m2 [...] - 10/29/17 09:27 ABSOLUTE NEUTROPHILS 164 cells/uL 8305-6466 ABSOLUTE MONOCYTES 14 cells/uL 200-950 ABSOLUTE EOSINOPHILS [...] Automated erythrocyte mean corpuscular hemoglobin concentration measurement (mass/volume) 35 g/dL 32-36 Automated erythrocyte distribution width ratio 12.9 % 10.0- 14.5 Automated blood platelet count (count/volume) 170 10*3/uL [...] Blood monocytes automated count (number/volume) 0.5 10*3 0.0- 1.0 Automated eosinophil count 0.2 10*3/uL 0.0-0.3 Automated [...] Serum or plasma aspartate aminotransferase measurement (enzymatic activity/volume) 19 U/L 5-34 Serum or plasma alanine aminotransferase measurement (enzymatic activity/volume) 25 U/L 0-55 Serum or plasma protein measurement (mass/volume) 8.0 g/dL 6.4-8.2 Serum or plasma albumin measurement (mass/volume) 4.6 g/dL 3.2-4.5 Magnesium - 03/05/18 18:20 Magnesium 2.6 mg/dL 1.8-2.4 Serum or plasma troponin i.cardiac measurement (mass/volume) - 03/05/18 18:20 Serum or plasma troponin i.cardiac measurement (mass/volume) < ng/mL <0.30 Myoglobin, serum - 03/05/18 18:20 Myoglobin, serum 28.0 ng/mL 10.0-92.0 Fibrin D-dimer FEU measurement in platelet poor plasma (mass/volume) - 03/05/18 18:39 Fibrin D-dimer FEU measurement in platelet poor plasma (mass/volume) 0.20 ug/mL 0.00-0.49 PDM - 09 PANEL (PROFILE 1) - 05/25/18 09:36 Prescribed Drug 1 [place](TM) NRG Creatinine 112.2 mg/dL > or=20.0 pH [...] Automated erythrocyte mean corpuscular hemoglobin concentration measurement (mass/volume) 36 g/dL 32-36 Automated erythrocyte distribution width ratio 12.9 % 10.0- 14.5 Automated blood platelet count (count/volume) 166 10*3/uL [...] Blood monocytes automated count (number/volume) 0.4 10*3 0.0- 1.0 Automated eosinophil count 0.1 10*3/uL 0.0-0.3 Automated [...] Serum or plasma aspartate aminotransferase measurement (enzymatic activity/volume) 27 U/L 5-34 Serum or plasma alanine aminotransferase measurement (enzymatic activity/volume) 33 U/L 0-55 Serum or plasma protein measurement (mass/volume) 7.8 g/dL 6.4-8.2 Serum or plasma albumin measurement (mass/volume) 4.7 g/dL 3.2-4.5 Magnesium - 07/18/18 09:48 Magnesium 2.2 mg/dL 1.8-2.4 Serum or plasma troponin i.cardiac measurement (mass/volume) - 07/18/18 09:48 Serum or plasma troponin i.cardiac measurement (mass/volume) < ng/mL <0.028 Myoglobin, serum - 07/18/18 09:48 Myoglobin, serum 29.3 ng/mL 10.0-92.0 Lipase - 07/18/18 09:48 Lipase 38 U/L 8-78 Serum or plasma troponin i.cardiac measurement (mass/volume) - 07/18/18 11:34 Serum or plasma troponin i.cardiac measurement (mass/volume) < ng/mL <0.028 CBC - 08/24/18 18:04 WHITE BLOOD CELL COUNT 6.2 Thousand/uL 3.8-10.8 RED BLOOD CELL COUNT 5.39 Million/uL 4.20-5.80 HEMOGLOBIN 16.4 g/dL 13.2-17.1 HEMATOCRIT 47.4 % 38.5-50.0 MCV 87.9 fL 80.0-100.0 MCH 30.4 pg 27.0-33.0 MCHC 34.6 g/dL 32.0-36.0 RDW 13.1 % 11.0-15.0 PLATELET COUNT 174 Thousand/uL 140-400 MPV 12.4 fL 7.5-12.5 ABSOLUTE NEUTROPHILS 3974 cells/uL 9155-7204 ABSOLUTE LYMPHOCYTES 1680 cells/uL 850-3900 ABSOLUTE MONOCYTES 391 cells/uL 200-950 ABSOLUTE EOSINOPHILS 118 cells/uL 15-500 ABSOLUTE BASOPHILS 37 cells/uL 0-200 NEUTROPHILS 64.1 % NRG LYMPHOCYTES 27.1 % NRG MONOCYTES 6.3 % NRG EOSINOPHILS 1.9 % NRG BASOPHILS 0.6 % NRG Serum or plasma troponin i.cardiac measurement (mass/volume) - 09/05/18 22:55 Serum or plasma troponin i.cardiac measurement (mass/volume) < ng/mL <0.028 Complete blood count (CBC) with automated white blood cell (WBC) differential - 09/05/18 22:56 Blood leukocytes automated count (number/volume) 6.3 10*3/uL 4.3-11.0 Blood erythrocytes automated count (number/volume) 5.21 10*6/uL 4.35-5.85 Venous blood hemoglobin measurement (mass/volume) 15.7 g/dL 13.3-17.7 Blood hematocrit (volume fraction) 45 % 40-54 Automated erythrocyte mean corpuscular volume 85 [foz_us] 80-99 Automated erythrocyte mean corpuscular hemoglobin (mass per erythrocyte) 30 pg 25-34 Automated erythrocyte mean corpuscular hemoglobin concentration measurement (mass/volume) 35 g/dL 32-36 Automated erythrocyte distribution width ratio 12.5 % 10.0- 14.5 Automated blood platelet count (count/volume) 147 10*3/uL 130-400 Automated blood platelet mean volume measurement 10.9 [foz_us] 7.4-10.4 Automated blood neutrophils/100 leukocytes 60 % 42-75 Automated blood lymphocytes/100 leukocytes 29 % 12-44 Blood monocytes/100 leukocytes 7 % 0-12 Automated blood eosinophils/100 leukocytes 3 % 0-10 Automated blood basophils/100 leukocytes 0 % 0-10 Blood neutrophils automated count (number/volume) 3.8 10*3 1.8-7.8 Blood lymphocytes automated count (number/volume) 1.8 10*3 1.0-4.0 Blood monocytes automated count (number/volume) 0.5 10*3 0.0- 1.0 Automated eosinophil count 0.2 10*3/uL 0.0-0.3 Automated blood basophil count (count/volume) 0.0 10*3/uL 0.0-0.1 PT panel in platelet poor plasma by coagulation assay - 09/05/18 22:56 Prothrombin time (PT) in platelet poor plasma by coagulation assay 12.6 s 12.2-14.7 INR in platelet poor plasma or blood by coagulation assay 1.0 0.8-1.4 Activated partial thromboplastin time (aPTT) in platelet poor plasma bycoagulation assay - 09/05/18 22:56 Activated partial thromboplastin time (aPTT) in platelet poor plasma bycoagulation assay 29 s 24-35 Comprehensive metabolic panel - 09/05/18 22:56 Serum or plasma sodium measurement (moles/volume) 140 mmol/L 135-145 Serum or plasma potassium measurement (moles/volume) 3.9 mmol/L 3.6-5.0 Serum or plasma chloride measurement (moles/volume) 107 mmol/L 98-107 Carbon dioxide 22 mmol/L 21-32 Serum or plasma anion gap determination (moles/volume) 11 mmol/L 5-14 Serum or plasma urea nitrogen measurement (mass/volume) 20 mg/dL 7-18 Serum or plasma creatinine measurement (mass/volume) 0.90 mg/dL 0.60-1.30 Serum or plasma urea nitrogen/creatinine mass ratio 22 NRG Serum or plasma creatinine measurement with calculation of estimated glomerular filtration rate > NRG Serum or plasma glucose measurement (mass/volume) 91 mg/dL 70-105 Serum or plasma calcium measurement (mass/volume) 9.5 mg/dL 8.5-10.1 Serum or plasma total bilirubin measurement (mass/volume) 0.4 mg/dL 0.1-1.0 Serum or plasma alkaline phosphatase measurement (enzymatic activity/volume) 112 U/L 40-136 Serum or plasma aspartate aminotransferase measurement (enzymatic activity/volume) 26 U/L 5-34 Serum or plasma alanine aminotransferase measurement (enzymatic activity/volume) 37 U/L 0-55 Serum or plasma protein measurement (mass/volume) 7.6 g/dL 6.4-8.2 Serum or plasma albumin measurement (mass/volume) 4.6 g/dL 3.2-4.5 Magnesium - 09/05/18 22:56 Magnesium 2.6 mg/dL 1.8-2.4 Serum or plasma creatine kinase measurement (enzymatic activity/volume) - 09/05/18 22:56 Serum or plasma creatine kinase measurement (enzymatic activity/volume) 85 U/L 30-200 Serum or plasma creatine kinase MB measurement (enzymatic activity/volume) - 09/05/18 22:56 Serum or plasma creatine kinase MB measurement (enzymatic activity/volume) 1.3 ng/mL <6.6 Serum or plasma troponin i.cardiac measurement (mass/volume) - 09/05/18 22:56 Serum or plasma troponin i.cardiac measurement (mass/volume) < ng/mL <0.028 Myoglobin, serum - 09/05/18 22:56 Myoglobin, serum 38.2 ng/mL 10.0-92.0 Serum or plasma amylase measurement (enzymatic activity/volume) - 09/05/18 22:56 Serum or plasma amylase measurement (enzymatic activity/volume) 86 U/L 25-125 Lipase - 09/05/18 22:56 Lipase 50 U/L 8-78 Serum or plasma lithium measurement (moles/volume) - 09/05/18 22:56 BNP level 11.1 pg/mL <100.0 CBC - 09/28/18 09:34 WHITE BLOOD CELL COUNT 5.4 Thousand/uL 3.8-10.8 RED BLOOD CELL COUNT 5.15 Million/uL 4.20-5.80 HEMOGLOBIN 15.7 g/dL 13.2-17.1 HEMATOCRIT 45.9 % 38.5-50.0 MCV 89.1 fL 80.0-100.0 MCH 30.5 pg 27.0-33.0 MCHC 34.2 g/dL 32.0-36.0 RDW 12.7 % 11.0-15.0 PLATELET COUNT 165 Thousand/uL 140-400 MPV 11.0 fL 7.5-12.5 ABSOLUTE NEUTROPHILS 3359 cells/uL 8772-6594 ABSOLUTE LYMPHOCYTES 1507 cells/uL 850-3900 ABSOLUTE MONOCYTES 383 cells/uL 200-950 ABSOLUTE EOSINOPHILS 119 cells/uL 15-500 ABSOLUTE BASOPHILS 32 cells/uL 0-200 NEUTROPHILS 62.2 % NRG LYMPHOCYTES 27.9 % NRG MONOCYTES 7.1 % NRG EOSINOPHILS 2.2 % NRG BASOPHILS 0.6 % NRG TSH - 09/28/18 09:34 TSH 1.84 mIU/L 0.40-4.50 Encounters ACCT No. Visit Date/Time Discharge Status Pt. Type Provider Facility Loc./Unit Complaint [id number] 07/06/2014 14:22:00 07/06/2014 23:59:59 CLS Outpatient MARIPOSA BRENNER DO [id number] 05/02/2014 14:27:00 05/02/2014 23:59:59 CLS Outpatient AMY HALEY APRN [id number] 03/02/2014 09:15:00 03/02/2014 23:59:59 CLS Outpatient AMY HALEY APRN [id number] 09/15/2013 10:30:00 09/15/2013 23:59:59 CLS Outpatient AMY HALEY APRN [id number] 04/14/2013 14:56:00 04/14/2013 23:59:59 CLS Outpatient MARIPOSA BRENNER DO [id number] 04/05/2013 13:52:00 04/05/2013 23:59:59 CLS Outpatient SARI POPE APRN [id number] 02/27/2013 14:37:00 Document Registration [id number] 02/24/2013 11:36:00 Document Registration [id number] 02/21/2013 16:17:00 Document Registration [id number] 12/10/2012 09:18:00 Document Registration [id number] 12/02/2012 13:42:00 Document Registration [id number] 12/13/2018 05:47:00 12/13/2018 15:11:00 DIS Outpatient MARIAJOSE LUDWIG DO [facility] PREOP COLONOSCOPY/EGD [id number] 10/04/2018 08:51:00 10/04/2018 23:59:59 CLS Outpatient SANTOSH BEATTY [facility] ONC [id number] 09/05/2018 22:32:00 09/06/2018 03:12:00 DIS Emergency GAIL ALPHONSO [facility] ER CHEST AND BACK PAIN [id number] 08/09/2018 07:26:00 08/09/2018 10:25:00 DIS Outpatient MARIAJOSE LUDWIG DO [facility] ENDO BLOOD IN STOOL/EPIGASTRIC ABD PAIN [id number] 08/05/2018 05:50:00 08/05/2018 16:01:00 DIS Outpatient MARIAJOSE LUDWIG DO [facility] PREOP COLONOSCOPY/EGD [id number] 08/01/2018 09:21:00 08/01/2018 23:59:59 CLS Outpatient MARIAJOSE LUDWIG DO [facility] CARD EPIGASTRIC ABD PAIN [id number] 07/22/2018 08:05:00 07/22/2018 23:59:59 CLS Outpatient MARIAJOSE LUDWIG DO [facility] RAD EPIGASTRIC ABD PAIN [id number] 07/18/2018 09:32:00 07/18/2018 12:38:00 DIS Emergency AZALIA CAHNDLER MD [facility] ER CHEST PAIN [id number] 06/23/2018 08:43:00 07/10/2018 00:01:00 DIS Outpatient SANTOSH BEATTY [facility] ONC [id number] 06/13/2018 15:34:00 06/13/2018 18:18:00 DIS Emergency ARTEMIO MONTES APRN [facility] ER STRANGE FEELING IN ABD [id number] 03/05/2018 16:41:00 03/05/2018 19:50:00 DIS Emergency RAMESH BATEMAN, AZALIA [place] ER PAIN IN NECK,PAIN DOWN LEGS [id number] 02/07/2018 12:47:00 02/07/2018 23:59:59 CLS Outpatient SANTOSH BEATTY [facility] ONC [id number] 10/25/2017 07:00:00 10/26/2017 10:34:00 DIS Inpatient ADRI BATEMAN, YOLANDA [place] 4TH CHEST PAIN; PANCYTOPENIA; SPLENOMEGALY [id number] 10/22/2017 10:53:00 10/22/2017 23:59:59 CLS Outpatient MARIAJOSE LUDWIG DO [facility] CARD REFLUX ESOPHAGITIS [id number] 10/15/2017 08:13:00 10/15/2017 23:59:59 CLS Outpatient AMY HALEY [facility] RAD R10.32 ABDOMINAL PAIN, LEFT LOWER QUADRANT [id number] 10/15/2017 07:33:00 10/15/2017 23:59:59 CLS Outpatient MARIAJOSE LUDWIG DO [facility] RAD REFLUX EXOPHAGITIS [id number] 08/03/2017 13:34:00 08/03/2017 23:59:59 CLS Outpatient ABDULKADIR BATEMAN, XOCHILT [place] [facility] CARD EDEMA OF LLE [id number] 07/13/2017 06:48:00 07/13/2017 10:00:00 DIS Outpatient MARIAJOSE LUDWIG DO [facility] ENDO RECTAL BLEEDING/REFLUX [id number] 07/06/2017 05:37:00 07/06/2017 11:26:00 DIS Outpatient LUDWIG MARIAJOSE GARCIA [facility] PREOP COLONOSCOPY/EGD [id number] 05/24/2017 12:53:00 05/24/2017 23:59:59 CLS Outpatient ALEX SOLER APRN [facility] RAD LT LEG SWELLING [id number] 12/13/2015 10:44:00 12/13/2015 11:49:00 DIS Emergency ROSENDO HUSSEIN [facility] ER ABSCESS [id number] 11/08/2014 17:12:00 11/08/2014 18:00:00 DIS Emergency YADIRA BERNAL MD [facility] ER R ARM ABCESS [id number] 09/30/2014 17:52:00 09/30/2014 18:00:00 DIS Emergency MONTESARTEMIO APRN [facility] ER RASH/POSS POISON WILI [id number] 07/12/2014 22:25:00 07/12/2014 23:46:00 DIS Emergency ALPHONSO REYNOLDS DO [facility] ER CHEST PAIN [id number] 05/11/2014 17:23:00 05/11/2014 23:59:59 CLS Outpatient JOHANNA DOTY MD [facility] SDC FOREIGN BODY [id number] 04/29/2014 20:39:00 04/29/2014 23:08:00 DIS Emergency ALPHONSO REYNOLDS DO [facility] ER INSECT BITE/STING [id number] 03/04/2014 22:54:00 03/05/2014 00:37:00 DIS Emergency ANDIE MCCRAY MD [facility] ER BODY ACHE [id number] 02/10/2014 21:52:00 02/10/2014 22:13:00 DIS Emergency BIRGIT LOPEZ MD [facility] ER POSS SPIDER BITE R KNEE [id number] 03/17/2013 08:06:00 03/17/2013 10:25:00 DIS Emergency YADIRA BERNAL MD [facility] ER LEFT SIDE/ABD PAIN [id number] 02/12/2013 13:49:00 02/14/2013 18:35:00 DIS Inpatient MARIPOSA BRENNER DO [facility] 4TH CELLULITIS [id number] 11/01/2012 09:30:00 01/16/2013 00:01:00 DIS Outpatient OLVIN VASQUEZ MD [facility] WOUNDCARE PERISCROTAL ABSCESS [id number] 11/30/2012 23:07:00 12/01/2012 03:19:00 DIS Emergency ALPHONSO REYNOLDS DO [facility] ER RT HAND RING FINGER ABSCESS [id number] 11/24/2012 00:23:00 11/24/2012 01:08:00 DIS Emergency ANDIE MCCRAY MD [facility] ER ACID REFLUX [id number] 10/12/2012 23:30:00 10/13/2012 19:20:00 DIS Outpatient OLVIN VASQUEZ MD [facility] SDC PERISCROTAL ABSCESS [id number] 12/20/2018 12:00:00 PEN Preadmit MARIAJOSE LUDWIG DO [facility] ENDO HX POLYPS/GERD/BRIGHT RED BLOOD IN STOOL [id number] 01/17/2013 11:15:00 Document Registration [id number] 10/17/2011 13:43:00 Document Registration [id number] 06/21/2011 12:44:00 Document Registration [id number] 06/17/2011 10:02:00 Document Registration [id number] 02/05/2011 17:07:00 Document Registration [id number] 03/13/2010 09:48:00 Document Registration [id number] 03/11/2010 23:27:00 Document Registration [id number] 01/25/2010 21:30:00 Document Registration [id number] 11/24/2018 15:15:00 11/24/2018 23:59:59 CLS Outpatient AMY HALEY APRN [facility] [id number] 09/28/2018 09:20:00 Document Registration [id number] 08/24/2018 17:40:00 Document Registration [id number] 05/25/2018 09:40:00 Document Registration [id number] 10/29/2017 09:00:00 Document Registration [id number] 06/18/2017 08:00:00 Document Registration
[2018-12-20 11:35] VITALS: BP 124/78
[2018-12-20 11:50] VITALS: BP 112/82
[2018-12-20 12:02] VITALS: BP 112/82
--- NOTE | 2018-12-20 12:15 | Anesthesia-General Post-Op ---
MAC Patient Condition Mental Status/LOC: Same as Preop Cardiovascular: Satisfactory Nausea/Vomiting: Absent Respiratory: Satisfactory Pain: Controlled Complications: Absent Post Op Complications Complications None Follow Up Care/Instructions Patient Instructions None needed. Anesthesiology Discharge Order Discharge Order Patient is doing well, no complaints, stable vital signs, no apparent adverse anesthesia problems. No complications reported per nursing. LENIN CHARLTON CRNA Dec 20, 2018 12:15
--- NOTE | 2018-12-21 00:33 | OPERATIVE REPORT ---
DATE OF SERVICE: 12/20/2018 PREOPERATIVE DIAGNOSES: Gastroesophageal reflux disease, blood in stool, history of polyps, history of erosive esophagitis. POSTOPERATIVE DIAGNOSES: Small hiatal hernia, slight gastritis, ascending colon polyp. PROCEDURE: EGD with biopsies, colonoscopy with hot biopsy polypectomy. SURGEON: Mariajose Neal DO. ANESTHESIA: Per DIRECTOR OF STRATEGIC COMMUNICATIONS. ESTIMATED BLOOD LOSS: None. COMPLICATIONS: None. SPECIMENS: Antrum, GE junction, ascending colon polyp. INDICATIONS: The patient is a 43-year-old male with GERD, blood in stool and history of polyps and history of erosive esophagitis. The patient understands risks and benefits of procedures and wished to proceed with procedures. Consent was signed in the chart. The patient was taken to endoscopy suite, placed in left lateral recumbent position. Timeout was performed. Scope was inserted in the mouth, down the esophagus, stomach and into the duodenum without difficulty. There were no polyps, mass or ulcerations within the duodenum. Scope was slowly retracted back into the stomach, which was further insufflated. Some slight changes consistent with gastritis were present. Biopsy of the antrum was obtained. Scope was retroflexed noting a small hiatal hernia. Scope was returned to its normal position, slowly withdrawn to the distal esophagus, which had no significant changes. Biopsy of the GE junction was obtained. Scope was then slowly retracted back noting no other pathology until completely removed. Digital rectal exam was performed. There were no palpable polyps, masses or ulcerations. Scope was inserted in the rectum and advanced all the way to the cecum with minimal difficulty. Prep was adequate. Scope was then slowly retracted back. There were no polyps, masses, or ulcerations in the cecum. In the ascending colon, a small polyp was present, which hot biopsy polypectomy was performed. Scope was then continuously retracted back. There were no polyps, mass or ulcerations within the remainder of the ascending, transverse, descending and sigmoid colon. Once in the rectum, scope was retroflexed no other pathology. Scope was returned to its normal position, slowly withdrawn until completely removed. The patient tolerated procedure well without any complications, taken to recovery room in stable condition. RECOMMENDATIONS: The patient is to continue on current medications. He will follow up in the office in 2 weeks to discuss pathology results. If any changes, he should be reevaluated at that time. The patient will have a repeat colonoscopy in 5 years unless he has any issues before that be seen at that time. Job ID: [id number] DocumentID: [id number] Dictated Date: 12/20/2018 16:46:33 Chalk Tester Date: 12/21/2018 00:33:31 Dictated By: MARIAJOSE NEAL DO
== END 2018-12-20 12:05 | disposition home or self-care (01) ==
LOC: ENDO 09:36
PROVIDERS: ATTEND Surgery
DX: D12.2 Benign neoplasm of ascending colon (principal); K29.70 Gastritis, unspecified, without bleeding; K44.9 Diaphragmatic hernia without obstruction or gangrene; K20.0 Eosinophilic esophagitis; K21.9 Gastro-esophageal reflux disease without esophagitis; K92.1 Melena; K52.9 Noninfective gastroenteritis and colitis, unspecified; K31.89 Other diseases of stomach and duodenum; I10 Essential (primary) hypertension; E66.01 Morbid (severe) obesity due to excess calories; Z68.38 Body mass index [BMI] 38.0-38.9, adult; Z88.5 Allergy status to narcotic agent; Z79.899 Other long term (current) drug therapy
CPT/HCPCS: 88305

== ENCOUNTER 2019-01-04 14:25 | Outpatient (RCR) | payer OTHER ==
[2019-01-04 14:44] LABS: BASOPHILS % (AUTO) 0 % (0-10); EOSINOPHILS # (AUTO) 0.1 10^3/uL (0.0-0.3); EOSINOPHILS % (AUTO) 2 % (0-10); HEMATOCRIT 45 % (40-54); LYMPHOCYTES # (AUTO) 1.7 X 10^3 (1.0-4.0); LYMPHOCYTES % (AUTO) 31 % (12-44); MEAN CORPUSCULAR HEMOGLOBIN 31 PG (25-34); MEAN CORPUSCULAR HGB CONC 36 G/DL (32-36); MEAN CORPUSCULAR VOLUME 87 FL (80-99); MEAN PLATELET VOLUME 11.1 FL (7.4-10.4); MONOCYTES # (AUTO) 0.4 X 10^3 (0.0-1.0); MONOCYTES % (AUTO) 7 % (0-12); NEUTROPHILS # (AUTO) 3.2 X 10^3 (1.8-7.8); NEUTROPHILS % (AUTO) 59 % (42-75); PLATELET COUNT 157 10^3/uL (130-400); RED CELL DISTRIBUTION WIDTH 12.2 % (10.0-14.5); WHITE BLOOD COUNT 5.4 10^3/uL (4.3-11.0)
== END 2019-04-04 | disposition home or self-care (01) ==
LOC: ONC 14:25
PROVIDERS: ATTEND Internal Medicine Hematology & Oncology
DX: D61.818 Other pancytopenia (principal); R16.1 Splenomegaly, not elsewhere classified; R59.0 Localized enlarged lymph nodes; K21.0 Gastro-esophageal reflux disease with esophagitis; E66.9 Obesity, unspecified; Z68.39 Body mass index [BMI] 39.0-39.9, adult
CPT/HCPCS: 36415; 85025

== ENCOUNTER 2019-04-17 12:21 | Outpatient (RCR) | payer OTHER ==
[2019-04-11 09:14] LABS: BASOPHILS % (AUTO) 0 % (0-10); EOSINOPHILS # (AUTO) 0.4 10^3/uL (0.0-0.3); EOSINOPHILS % (AUTO) 5 % (0-10); HEMATOCRIT 44 % (40-54); HEMOGLOBIN 15.5 G/DL (13.3-17.7); LYMPHOCYTES # (AUTO) 1.6 X 10^3 (1.0-4.0); LYMPHOCYTES % (AUTO) 21 % (12-44); MEAN CORPUSCULAR HEMOGLOBIN 30 PG (25-34); MEAN CORPUSCULAR HGB CONC 36 G/DL (32-36); MEAN CORPUSCULAR VOLUME 86 FL (80-99); MEAN PLATELET VOLUME 10.9 FL (7.4-10.4); MONOCYTES # (AUTO) 0.5 X 10^3 (0.0-1.0); MONOCYTES % (AUTO) 7 % (0-12); NEUTROPHILS # (AUTO) 5.2 X 10^3 (1.8-7.8); NEUTROPHILS % (AUTO) 67 % (42-75); PLATELET COUNT 169 10^3/uL (130-400); RED CELL DISTRIBUTION WIDTH 12.1 % (10.0-14.5); WHITE BLOOD COUNT 7.8 10^3/uL (4.3-11.0)
[2019-04-11 09:33] LABS: ALANINE AMINOTRANSFERASE 41 U/L (0-55); ALBUMIN 4.3 GM/DL (3.2-4.5); ALKALINE PHOSPHATASE 104 U/L (40-136); BILIRUBIN,TOTAL 0.5 MG/DL (0.1-1.0); BUN/CREATININE RATIO 13; CALCIUM 9.4 MG/DL (8.5-10.1); CARBON DIOXIDE 22 MMOL/L (21-32); CHLORIDE 108 MMOL/L (98-107); CREATININE SERUM 0.94 MG/DL (0.60-1.30); GFR ESTIMATED > 60; GLUCOSE 104 MG/DL (70-105); POTASSIUM 4.1 MMOL/L (3.6-5.0); SODIUM 143 MMOL/L (135-145); TOTAL PROTEIN 7.2 GM/DL (6.4-8.2)
[2019-04-17] MEDS ORDERED: FLU QUADRIvalent (5+ YOA) 2019-2020 (Cancer Ctr) 0.5 ML IM ONE (12:30)
[2019-06-07] MEDS ORDERED: SUCR1TAB36 PO (08:12)
[2019-06-07] MEDS ORDERED: TRAM-42 PO (08:16)
[2019-06-15] MEDS ORDERED: FAMO40TA72 PO (12:15)
[2019-07-04] MEDS ORDERED: TRAM-42 PO (00:39)
== END 2019-07-10 | disposition home or self-care (01) ==
LOC: ONC 12:21
PROVIDERS: ATTEND Internal Medicine Hematology & Oncology
DX: D61.818 Other pancytopenia (principal); R16.1 Splenomegaly, not elsewhere classified; R59.0 Localized enlarged lymph nodes; K21.0 Gastro-esophageal reflux disease with esophagitis; E66.9 Obesity, unspecified; Z68.39 Body mass index [BMI] 39.0-39.9, adult
CPT/HCPCS: 36415; 80053; 83615; 85025; 90471; 99213

== ENCOUNTER 2019-06-07 06:03 | Emergency (ER) | payer OTHER ==
[~2019-06-07] VITALS: Ht 172 cm; Wt 118.0 kg
[2019-06-07] MEDS ORDERED: LIDOCAINE 2% VISCOUS 15 ML UDC ONE (06:52)
[2019-06-07] MEDS ORDERED: ANTACID SUSP 30 ML UDC (MYLANTA) ONE (06:52)
[2019-06-07] MEDS ORDERED: LIDOCAINE 2% VISCOUS 15 ML UDC PO ONE (07:00)
[2019-06-07] MEDS ORDERED: ANTACID SUSP 30 ML UDC (MYLANTA) PO ONE (07:00)
[2019-06-07 07:01] LABS: BASOPHILS % (AUTO) 0 % (0-10); EOSINOPHILS # (AUTO) 0.4 10^3/uL (0.0-0.3); EOSINOPHILS % (AUTO) 6 % (0-10); HEMATOCRIT 45 % (40-54); HEMOGLOBIN 15.7 G/DL (13.3-17.7); LYMPHOCYTES # (AUTO) 1.6 X 10^3 (1.0-4.0); LYMPHOCYTES % (AUTO) 28 % (12-44); MEAN CORPUSCULAR HEMOGLOBIN 31 PG (25-34); MEAN CORPUSCULAR HGB CONC 35 G/DL (32-36); MEAN CORPUSCULAR VOLUME 88 FL (80-99); MEAN PLATELET VOLUME 10.9 FL (7.4-10.4); MONOCYTES # (AUTO) 0.4 X 10^3 (0.0-1.0); MONOCYTES % (AUTO) 6 % (0-12); NEUTROPHILS # (AUTO) 3.4 X 10^3 (1.8-7.8); NEUTROPHILS % (AUTO) 59 % (42-75); PLATELET COUNT 161 10^3/uL (130-400); RED CELL DISTRIBUTION WIDTH 12.4 % (10.0-14.5); WHITE BLOOD COUNT 5.8 10^3/uL (4.3-11.0)
[2019-06-07 07:24] LABS: ALANINE AMINOTRANSFERASE 32 U/L (0-55); ALBUMIN 4.6 GM/DL (3.2-4.5); ALKALINE PHOSPHATASE 96 U/L (40-136); BILIRUBIN,TOTAL 0.7 MG/DL (0.1-1.0); BUN/CREATININE RATIO 15; CALCIUM 9.2 MG/DL (8.5-10.1); CARBON DIOXIDE 27 MMOL/L (21-32); CHLORIDE 106 MMOL/L (98-107); CREATININE SERUM 0.86 MG/DL (0.60-1.30); GFR ESTIMATED > 60; GLUCOSE 111 MG/DL (70-105); LIPASE 51 U/L (8-78); POTASSIUM 4.2 MMOL/L (3.6-5.0); SODIUM 142 MMOL/L (135-145); TOTAL PROTEIN 7.1 GM/DL (6.4-8.2)
[2019-06-07] MEDS ORDERED: SUCR1TAB36 PO (08:12)
--- NOTE | 2019-06-07 08:13 | ED Abdominal Pain ---
General Chief Complaint: Abdominal/GI Problems Stated Complaint: BACK PAIN,ABD PAIN Nursing Triage Note: pt presents to ed room 10 ambulatory c/o epigastric abd. 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 pt states he has an extensive hx. of abd pain issues and has had several scopes in the past. Pt was told by dr. ludwig that his gallbladder needs to come out. Sepsis Screen: No Definite Risk Source of Information: Patient, Old Records Exam Limitations: No Limitations History of Present Illness Date Seen by Provider: Jun 07, 2019 Time Seen by Provider: 06:43 Initial Comments This 44-year-old man presents to the emergency room with epigastric pain that woke him from sleep this morning about an hour prior to arrival. He has had significant workup in the past including gallbladder ultrasound and hepatobiliary scan. These were unremarkable. He has endoscopy scheduled for June 20. Prior endoscopy in December demonstrated gastritis, hiatal hernia, and colon polyps. Ultrasound in July 2018 showed fatty infiltrates. Hepat obiliary scan demonstrated an ejection fraction of 57 percent. Patient is afebrile. Pain radiates to his back. It is worsened with belching. Last night he ate a baked potato and a pork chop. He denies any alcohol consumption. He takes Protonix and Pepcid. Patient reports being significantly nauseated last . His primary care provider is Jt Chisholm and his surgeon is Dr. Ludwig. Allergies and Home Medications Allergies Coded Allergies: morphine (Verified Adverse Reaction, Unknown, SWEATS AND VOMITING, 12/20/18) Uncoded Allergies: CHOLESTEROL PILL (Allergy, Mild, "RED MAN SYNDROME", 10/14/08) Home Medications Hydrocodone/Acetaminophen 1 Each Tablet, 1 TAB PO Q6H PRN for PAIN-MODERATE, (Reported) Lactobacillus Acidophilus 1 Each Capsule, 1 EACH PO DAILY, (Reported) Multivits-Minerals/FA/Lycopene 1 Each Capsule, 1 CAP PO DAILY, (Reported) Pantoprazole Sodium 40 Mg Tablet.dr, 40 MG PO DAILY, (Reported) Sucralfate 1 Gm Tablet, 1 GM PO QID Dissolve in 5-10 mL water to make a slurry. Take 30 minutes before eating or drinking and at bedtime Prescribed by: ANDIE ISAAC on 06/07/19 0812 Tramadol HCl 50 Mg Tablet, 50 MG PO Q6H PRN for PAIN-MODERATE (5-7) Prescribed by: ANDIE ISAAC on 06/07/19 0816 Patient Home Medication List Home Medication List Reviewed: Yes Review of Systems Review of Systems Constitutional: no symptoms reported EENTM: No Symptoms Reported Respiratory: No Symptoms Reported Cardiovascular: No Symptoms Reported Gastrointestinal: See HPI Genitourinary: No Symptoms Reported Musculoskeletal: no symptoms reported Skin: no symptoms reported Psychiatric/Neurological: No Symptoms Reported Endocrine: No Symptoms Reported Hematologic/Lymphatic: No Symptoms Reported Past Syitxmw-Ahdteg-Jgydjm Hx Past Med/Social Hx: Reviewed Nursing Past Med/Soc Hx Patient Social History Alcohol Use: Denies Use Recreational Drug Use: No Smoking Status: Never a Smoker 2nd Hand Smoke Exposure: No Recent Foreign Travel: No Contact w/Someone Who Travel: No Recent Infectious Disease Expo: No Recent Hopitalizations: No Physical Abuse: No Sexual Abuse: No Mistreated: No Fear: No Immunizations Up To Date Tetanus Booster (TDap): Less than 5yrs PED Vaccines UTD: Yes Date of Influenza Vaccine: Mar 21, 2018 Seasonal Allergies Seasonal Allergies: No Past Medical History Surgeries: Yes (PERIRECTAL ABSCESS; SPHINCTEROTOMY; EGD/COLONOSCOPY) Appendectomy Respiratory: No Currently Using CPAP: No Currently Using BIPAP: No Cardiac: Yes Heart Murmur, Hypertension Neurological: No Reproductive Disorders: No Sexually Transmitted Disease: No HIV/AIDS: No Genitourinary: No Gastrointestinal: Yes (RECTAL BLEEDING, HX POLYPS; PERIRECTAL ABSCESS) Gastroesophageal Reflux, Chronic Diarrhea, Polyps, Hiatal Hernia Musculoskeletal: Yes Arthritis, Fractures Endocrine: No HEENT: No Loss of Vision: Denies Hearing Impairment: Denies Cancer: Yes (TOD CELL LEUKEMIA) Leukemia Did You Recieve Any Treatments: Yes What Type of Treatment Did You: Chemotherapy Psychosocial: No Integumentary: No Blood Disorders: No Adverse Reaction/Blood Tranf: No Family Medical History Cardiovascular disease 19 FATHER 19 MOTHER (bipass surgery) Diabetes mellitus 19 MOTHER Hypertension 19 FATHER Myocardial infarction 19 FATHER ( at age 46 from [place]) Heart Disease, Diabetes Physical Exam Vital Signs Vital Signs - First Documented 06/07/19 06:19 Temp 36.6 Pulse 84 Resp 18 B/P (MAP) 154/103 (120) Pulse Ox 97 O2 Delivery Room Air Capillary Refill : Less Than 3 Seconds Height/Weight/BMI Height: 5'9.00" Weight: 260lbs. 0.0oz. 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, no motor/sensory deficits, alert, normal mood/affect, oriented x 3 Skin: normal color, warm/dry Progress/Results/Core Measures Results/Orders Lab Results Laboratory Tests Test 06/07/19 06:29 Range/Units White Blood Count 5.8 4.3-11.0 10^3/uL Red Blood Count 5.11 4.35-5.85 10^6/uL Hemoglobin 15.7 13.3-17.7 G/DL Hematocrit 45 40-54 % Mean Corpuscular Volume 88 80-99 FL Mean Corpuscular Hemoglobin 31 25-34 PG Mean Corpuscular Hemoglobin Concent 35 32-36 G/DL Red Cell Distribution Width 12.4 10.0-14.5 % Platelet Count 161 130-400 10^3/uL Mean Platelet Volume 10.9 H 7.4-10.4 FL Neutrophils (%) (Auto) 59 42-75 % Lymphocytes (%) (Auto) 28 12-44 % Monocytes (%) (Auto) 6 0-12 % Eosinophils (%) (Auto) 6 0-10 % Basophils (%) (Auto) 0 0-10 % Neutrophils # (Auto) 3.4 1.8-7.8 X 10^3 Lymphocytes # (Auto) 1.6 1.0-4.0 X 10^3 Monocytes # (Auto) 0.4 0.0-1.0 X 10^3 Eosinophils # (Auto) 0.4 H 0.0-0.3 10^3/uL Basophils # (Auto) 0.0 0.0-0.1 10^3/uL Sodium Level 142 135-145 MMOL/L Potassium Level 4.2 3.6-5.0 MMOL/L Chloride Level 106 98-107 MMOL/L Carbon Dioxide Level 27 21-32 MMOL/L Anion Gap 9 5-14 MMOL/L Blood Urea Nitrogen 13 7-18 MG/DL Creatinine 0.86 0.60-1.30 MG/DL Estimat Glomerular Filtration Rate > 60 BUN/Creatinine Ratio 15 Glucose Level 111 H 70-105 MG/DL Calcium Level 9.2 8.5-10.1 MG/DL Corrected Calcium 8.5-10.1 MG/DL Total Bilirubin 0.7 0.1-1.0 MG/DL Aspartate Amino Transf (AST/SGOT) 22 5-34 U/L Alanine Aminotransferase (ALT/SGPT) 32 0-55 U/L Alkaline Phosphatase 96 40-136 U/L C-Reactive Protein High Sensitivity 0.23 0.00-0.50 MG/DL Total Protein 7.1 6.4-8.2 GM/DL Albumin 4.6 H 3.2-4.5 GM/DL Lipase 51 8-78 U/L My Orders Orders - ANDIE MCCRAY MD Cbc With Automated Diff (06/07/19 06:53) Comprehensive Metabolic Panel (06/07/19 06:53) Hs C Reactive Protein (06/07/19 06:53) Lipase (06/07/19 06:53) Lidocaine 2% Viscous 15 Ml (Xylocaine Vi (06/07/19 07:00) Antacid Suspension (Mylanta Suspension (06/07/19 07:00) Antacid Suspension (Mylanta Suspension (06/07/19 06:52) Lidocaine 2% Viscous 15 Ml (Xylocaine Vi (06/07/19 06:52) Ed Iv/Invasive Line Start (06/07/19 06:58) Fentanyl Injection (Sublimaze Injection (06/07/19 08:15) Medications Given in ED Vital Signs/I&O 06/07/19 06/07/19 06:19 08:35 Temp 36.6 36.6 Pulse 84 72 Resp 18 18 B/P (MAP) 154/103 (120) 136/84 (120) Pulse Ox 97 97 O2 Delivery Room Air Blood Pressure Mean: 120 Progress Progress Note : Progress Note Labs were unremarkable. Patient was treated with a GI cocktail which minimally improved his pain. Fentanyl was ordered for further pain management. Patient was advised to follow through with his endoscopy as previously scheduled. Lifestyle modifications and weight loss were recommended as well. Patient previously took Carafate. He has not been on Carafate recently. This was prescribed again. Departure Impression Primary Impression: Upper abdominal pain Additional Impression: Hiatal hernia Disposition: 01 HOME, SELF-CARE Condition: Improved Departure-Patient Inst. Decision time for Depature: 08:08 Referrals: [facility] (PCP) Primary Care Physician AMY CHISHOLM (Family) Primary Care Physician Patient Instructions: Hiatal Hernia Add. Discharge Instructions: Continue taking Protonix and Pepcid. Add Carafate (sucralfate) as prescribed. Keep your scheduled endoscopy with Dr. Ludwig. Avoid the following: Eating large meals, eating close to bedtime, caffeine, carbonation, citrus fruits and juices, chocolate, mints, fatty or greasy foods, tomato products, alcohol, tobacco, spicy foods, NSAID medications such as ibuprofen or naproxen, or anything else you know irritates your stomach. Sleep with the head of your bed elevated. Work toward weight loss to avoid excess weight on your stomach. For pain you may take a combination of Tylenol (acetaminophen) up to 1000 mg every 6 hours as needed and tramadol (Ultram) as prescribed. Return to care if you have worsening symptoms despite these measures. All discharge instructions reviewed with patient and/or family. Voiced understanding. Scripts Tramadol HCl (Ultram) 50 Mg Tablet 50 MG PO Q6H PRN for PAIN-MODERATE (5-7), #20 TAB Prov: ANDIE MCCRAY MD 06/07/19 Sucralfate (Carafate) 1 Gm Tablet 1 GM PO QID, #120 TAB Dissolve in 5-10 mL water to make a slurry. Take 30 minutes before eating or drinking and at bedtime Prov: ANDIE MCCRAY MD 06/07/19 Copy Copies To 1: MARIAJOSE LUDWIG DO Copies To 2: MARIPOSA BRENNER DO ANDIE MCCRAY MD Jun 07, 2019 08:13
[2019-06-07] MEDS ORDERED: fentaNYL INJECTION 100 MCG/2 ML AMP IVP ONE (08:15)
[2019-06-07] MEDS ORDERED: TRAM-42 PO (08:16)
[2019-06-07 08:35] VITALS: BP 136/84
== END 2019-06-07 08:35 | disposition home or self-care (01) ==
LOC: EDUNIT# 06:03 → ER 06:07
DX: K44.9 Diaphragmatic hernia without obstruction or gangrene (principal); I10 Essential (primary) hypertension; K21.9 Gastro-esophageal reflux disease without esophagitis; Z85.6 Personal history of leukemia; Z88.5 Allergy status to narcotic agent; Z88.8 Allergy status to other drugs, medicaments and biological substances; Z90.49 Acquired absence of other specified parts of digestive tract; Z82.49 Family history of ischemic heart disease and other diseases of the circulatory system
CPT/HCPCS: 36415; 80053; 83690; 85025; 86141; 96374

== ENCOUNTER → 2019-06-15 | Outpatient (CLI) | payer OTHER ==
[~2019-06-15] VITALS: Ht 175 cm; Wt 118.0 kg
[~2019-06-15] MED LIST changes: +FAMO40TA72 PO; +TRAM-42 PO
== END | disposition home or self-care (01) ==
LOC: PREOP 06-13 05:36
PROVIDERS: ATTEND Surgery
DX: Z01.818 Encounter for other preprocedural examination (principal)

== ENCOUNTER 2019-07-03 22:17 | Emergency (ER) | payer OTHER ==
[~2019-07-03] VITALS: Ht 175.2 cm; Wt 117.9 kg
[2019-07-03] MEDS ORDERED: FAMOTIDINE 20MG/2ML IV (PEPCID) IVP ONE (23:00)
[2019-07-03 23:09] LABS: BASOPHILS % (AUTO) 0 % (0-10); EOSINOPHILS # (AUTO) 0.4 10^3/uL (0.0-0.3); EOSINOPHILS % (AUTO) 5 % (0-10); HEMATOCRIT 44 % (40-54); HEMOGLOBIN 15.5 G/DL (13.3-17.7); LYMPHOCYTES # (AUTO) 2.4 X 10^3 (1.0-4.0); LYMPHOCYTES % (AUTO) 28 % (12-44); MEAN CORPUSCULAR HEMOGLOBIN 31 PG (25-34); MEAN CORPUSCULAR HGB CONC 36 G/DL (32-36); MEAN CORPUSCULAR VOLUME 87 FL (80-99); MEAN PLATELET VOLUME 10.7 FL (7.4-10.4); MONOCYTES # (AUTO) 0.4 X 10^3 (0.0-1.0); MONOCYTES % (AUTO) 5 % (0-12); NEUTROPHILS # (AUTO) 5.1 X 10^3 (1.8-7.8); NEUTROPHILS % (AUTO) 61 % (42-75); PLATELET COUNT 189 10^3/uL (130-400); RED CELL DISTRIBUTION WIDTH 12.4 % (10.0-14.5); WHITE BLOOD COUNT 8.3 10^3/uL (4.3-11.0)
[2019-07-03 23:21] LABS: ALANINE AMINOTRANSFERASE 31 U/L (0-55); ALBUMIN 4.5 GM/DL (3.2-4.5); ALKALINE PHOSPHATASE 87 U/L (40-136); BILIRUBIN,TOTAL 0.4 MG/DL (0.1-1.0); BUN/CREATININE RATIO 21; CALCIUM 9.4 MG/DL (8.5-10.1); CARBON DIOXIDE 21 MMOL/L (21-32); CHLORIDE 108 MMOL/L (98-107); GFR ESTIMATED > 60; GLUCOSE 112 MG/DL (70-105); LIPASE 51 U/L (8-78); POTASSIUM 4.4 MMOL/L (3.6-5.0); SODIUM 141 MMOL/L (135-145); TOTAL PROTEIN 7.2 GM/DL (6.4-8.2)
[2019-07-03 23:29] LABS: ERYTHROCYTE SEDIMENTATION RATE 5 MM/HR (0-15)
--- NOTE | 2019-07-03 23:29 | ED Abdominal Pain ---
General Chief Complaint: Abdominal/GI Problems Stated Complaint: DIARRHEA/ABD PAIN Nursing Triage Note: started having bright red stools today (3 in 24 hrs) associated with diarrhea and upper abdominal pain Sepsis Screen: No Definite Risk Source of Information: Patient, Old Records Exam Limitations: No Limitations History of Present Illness Date Seen by Provider: Jul 03, 2019 Time Seen by Provider: 22:47 Initial Comments This 44-year-old gentleman presents to the emergency room with complaints of upper abdominal pain that started this afternoon. This is a chronic intermittent problem. He also had another episode on July 01. He had EGD and colonoscopy with Dr. Ludwig on June 20. A small hiatal hernia was noted. Biopsies were unremarkable. Patient also reports some red color to his stools tonight. He reports prior problems with this as well. He denies eating anything that was red in color. He takes Carafate, Protonix, and Pepcid. He denies nausea or vomiting. He has had multiple episodes of diarrhea. He has not taken any pain medications. In fact, he was on chronic pain management with [facility] but he states he violated his pain management contract with them when he filled tramadol as prescribed from the ER. Patient does have history of esophagitis and GERD. He has had extensive workups in the past including multiple CTs, multiple endoscopy studies, gallbladder ultrasound, and hepatobiliary scan. Recent studies have been relatively unremarkable except for mild inflammation and hiatal hernia noted on endoscopy. Allergies and Home Medications Allergies Coded Allergies: morphine (Verified Adverse Reaction, Mild, SWEATS AND VOMITING, 06/15/19) Home Medications Famotidine 40 Mg Tablet, 40 MG PO HS, (Reported) Multivits-Minerals/FA/Lycopene 1 Each Capsule, 1 CAP PO DAILY, (Reported) Pantoprazole Sodium 40 Mg Tablet.dr, 40 MG PO DAILY, (Reported) Sucralfate 1 Gm Tablet, 1 GM PO QID Dissolve in 5-10 mL water to make a slurry. Take 30 minutes before eating or drinking and at bedtime Prescribed by: ANDIE ISACA on 06/07/19 0812 Tramadol HCl 50 Mg Tablet, 50 MG PO Q6H PRN for PAIN-MODERATE (5-7) Prescribed by: ANDIE ISAAC on 07/04/19 0039 Patient Home Medication List Home Medication List Reviewed: Yes Review of Systems Review of Systems Constitutional: no symptoms reported EENTM: No Symptoms Reported Respiratory: No Symptoms Reported Cardiovascular: No Symptoms Reported Gastrointestinal: See HPI Genitourinary: No Symptoms Reported Musculoskeletal: no symptoms reported Skin: no symptoms reported Psychiatric/Neurological: No Symptoms Reported Endocrine: No Symptoms Reported Hematologic/Lymphatic: No Symptoms Reported Past Zvcsxjz-Wtpcam-Wyvymj Hx Past Med/Social Hx: Reviewed Nursing Past Med/Soc Hx Patient Social History Alcohol Use: Denies Use Recreational Drug Use: No 2nd Hand Smoke Exposure: No Recent Foreign Travel: No Contact w/Someone Who Travel: No Recent Infectious Disease Expo: No Recent Hopitalizations: No Physical Abuse: No Sexual Abuse: No Mistreated: No Fear: No Immunizations Up To Date Tetanus Booster (TDap): Less than 5yrs PED Vaccines UTD: Yes Date of Influenza Vaccine: Apr 04, 2019 Seasonal Allergies Seasonal Allergies: No Past Medical History Surgeries: Yes (PERIRECTAL ABSCESS; SPHINCTEROTOMY; EGD/COLONOSCOPY) Appendectomy Respiratory: No Currently Using CPAP: No Currently Using BIPAP: No Cardiac: Yes Heart Murmur, Hypertension Neurological: No Reproductive Disorders: No Sexually Transmitted Disease: No HIV/AIDS: No Genitourinary: No Gastrointestinal: Yes (RECTAL BLEEDING, HX POLYPS; PERIRECTAL ABSCESS) Gastroesophageal Reflux, Chronic Diarrhea, Polyps, Hiatal Hernia Musculoskeletal: Yes Arthritis, Fractures Endocrine: No HEENT: No Loss of Vision: Denies Hearing Impairment: Denies Cancer: Yes (TOD CELL LEUKEMIA) Leukemia Did You Recieve Any Treatments: Yes What Type of Treatment Did You: Chemotherapy Psychosocial: No Integumentary: No Blood Disorders: No Adverse Reaction/Blood Tranf: No Family Medical History Cardiovascular disease 19 FATHER 19 MOTHER (bipass surgery) Diabetes mellitus 19 MOTHER Hypertension 19 FATHER Myocardial infarction 19 FATHER ( at age 46 from [place]) Heart Disease, Diabetes Physical Exam Vital Signs Vital Signs - First Documented 07/03/19 22:42 Temp 36.5 Pulse 87 Resp 19 B/P (MAP) 125/88 (100) Pulse Ox 97 Capillary Refill : Less Than 3 Seconds Height/Weight/BMI Height: 5'9.00" Weight: 260lbs. 0.0oz. 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, no motor/sensory deficits, alert, normal mood/affect, oriented x 3 Skin: normal color, warm/dry Progress/Results/Core Measures Results/Orders Lab Results Laboratory Tests Test 07/03/19 22:50 Range/Units White Blood Count 8.3 4.3-11.0 10^3/uL Red Blood Count 5.01 4.35-5.85 10^6/uL Hemoglobin 15.5 13.3-17.7 G/DL Hematocrit 44 40-54 % Mean Corpuscular Volume 87 80-99 FL Mean Corpuscular Hemoglobin 31 25-34 PG Mean Corpuscular Hemoglobin Concent 36 32-36 G/DL Red Cell Distribution Width 12.4 10.0-14.5 % Platelet Count 189 130-400 10^3/uL Mean Platelet Volume 10.7 H 7.4-10.4 FL Neutrophils (%) (Auto) 61 42-75 % Lymphocytes (%) (Auto) 28 12-44 % Monocytes (%) (Auto) 5 0-12 % Eosinophils (%) (Auto) 5 0-10 % Basophils (%) (Auto) 0 0-10 % Neutrophils # (Auto) 5.1 1.8-7.8 X 10^3 Lymphocytes # (Auto) 2.4 1.0-4.0 X 10^3 Monocytes # (Auto) 0.4 0.0-1.0 X 10^3 Eosinophils # (Auto) 0.4 H 0.0-0.3 10^3/uL Basophils # (Auto) 0.0 0.0-0.1 10^3/uL Erythrocyte Sedimentation Rate 5 0-15 MM/HR Sodium Level 141 135-145 MMOL/L Potassium Level 4.4 3.6-5.0 MMOL/L Chloride Level 108 H 98-107 MMOL/L Carbon Dioxide Level 21 21-32 MMOL/L Anion Gap 12 5-14 MMOL/L Blood Urea Nitrogen 19 H 7-18 MG/DL Creatinine 0.90 0.60-1.30 MG/DL Estimat Glomerular Filtration Rate > 60 BUN/Creatinine Ratio 21 Glucose Level 112 H 70-105 MG/DL Calcium Level 9.4 8.5-10.1 MG/DL Corrected Calcium 9.0 8.5-10.1 MG/DL Total Bilirubin 0.4 0.1-1.0 MG/DL Aspartate Amino Transf (AST/SGOT) 17 5-34 U/L Alanine Aminotransferase (ALT/SGPT) 31 0-55 U/L Alkaline Phosphatase 87 40-136 U/L C-Reactive Protein High Sensitivity 0.36 0.00-0.50 MG/DL Total Protein 7.2 6.4-8.2 GM/DL Albumin 4.5 3.2-4.5 GM/DL Lipase 51 8-78 U/L My Orders Orders - ANDIE MCCRAY MD Cbc With Automated Diff (07/03/19 22:59) Comprehensive Metabolic Panel (07/03/19 22:59) Hs C Reactive Protein (07/03/19 22:59) Lipase (07/03/19 22:59) Erythrocyte Sedimentation Rate (07/03/19 22:59) Ed Iv/Invasive Line Start (07/03/19 22:59) Famotidine Injection (Pepcid Injection) (07/03/19 23:00) Ondansetron Injection (Zofran Injectio (07/03/19 23:30) Lidocaine 2% Viscous 15 Ml (Xylocaine Vi (07/03/19 23:30) Antacid Suspension (Mylanta Suspension (07/03/19 23:30) Fentanyl Injection (Sublimaze Injection (07/04/19 00:45) Tramadol Tablet (Ultram Tablet) (07/04/19 00:45) Medications Given in ED Current Medications Medications Dose Ordered Sig/Pablo Route Start Time Stop Time Status Last Admin Dose Admin Al Hydrox/Mg Hydrox/Simethicone 30 ml ONCE ONCE PO 07/03/19 23:30 07/03/19 23:31 DC 07/03/19 23:38 30 ML Famotidine 20 mg ONCE ONCE IVP 07/03/19 23:00 07/03/19 23:01 DC 07/03/19 23:20 20 MG Fentanyl Citrate 50 mcg ONCE ONCE IVP 07/04/19 00:45 07/04/19 00:46 DC 07/04/19 00:44 50 MCG Lidocaine HCl 15 ml ONCE ONCE PO 07/03/19 23:30 07/03/19 23:31 DC 07/03/19 23:38 15 ML Ondansetron HCl 4 mg ONCE ONCE IVP 07/03/19 23:30 07/03/19 23:31 DC 07/03/19 23:38 4 MG Tramadol HCl 50 mg ONCE ONCE PO 07/04/19 00:45 07/04/19 00:46 DC 07/04/19 00:44 50 MG Vital Signs/I&O 07/03/19 07/04/19 22:42 00:46 Temp 36.5 Pulse 87 104 Resp 19 18 B/P (MAP) 125/88 (100) 115/95 (100) Pulse Ox 97 94 Blood Pressure Mean: 100 Progress Progress Note #1: Time: 23:29 Progress Note Labs thus far are unremarkable. Patient is receiving Pepcid and a GI cocktail. We will reassess after these medications take effect. Chart has been reviewed including endoscopy studies and imaging reports. Progress Note #2: Progress Note Workup was relatively unremarkable. GI cocktail and Pepcid had minimal effect. Pain was further treated with tramadol and fentanyl. Patient was advised to continue with pain management and follow-up with Dr. Ludwig. See discharge instructions. Departure Impression Primary Impression: Upper abdominal pain Disposition: 01 HOME, SELF-CARE Condition: Improved Departure-Patient Inst. Decision time for Depature: 00:37 Referrals: [facility] (PCP) Primary Care Physician AMY HALEY (Family) Primary Care Physician Patient Instructions: Acute Abdomen (Belly Pain), Adult (DC) Add. Discharge Instructions: Observe a clear liquid diet for the next 24 hours. Then gradually advance your diet with small quantities of bland food as tolerated. I'd fatty, greasy, and oily foods. Follow-up with Dr. Ludwig as soon as possible. You may use Tylenol (acetaminophen) up to 1000 mg every 6 hours as needed for pain. Add Ultram (tramadol) as needed for pain not controlled by Tylenol. Continue your other medications. Return to care if you have symptoms not controlled by these measures. All discharge instructions reviewed with patient and/or family. Voiced understanding. Scripts Tramadol HCl (Ultram) 50 Mg Tablet 50 MG PO Q6H PRN for PAIN-MODERATE (5-7), #20 TAB Prov: ANDIE MCCRAY MD 07/04/19 Copy Copies To 1: MARIAJOSE LUDWIG DO Copies To 2: MARIPOSA BRENNER DO ANDIE MCCRAY MD Jul 03, 2019 23:29
[2019-07-03] MEDS ORDERED: ONDANSETRON 4 MG/2 ML (SDV) Z0FRAN IVP ONE (23:30)
[2019-07-03] MEDS ORDERED: ANTACID SUSP 30 ML UDC (MYLANTA) PO ONE (23:30)
[2019-07-03] MEDS ORDERED: LIDOCAINE 2% VISCOUS 15 ML UDC PO ONE (23:30)
[2019-07-04] MEDS ORDERED: TRAM-42 PO (00:39)
[2019-07-04] MEDS ORDERED: fentaNYL INJECTION 100 MCG/2 ML AMP IVP ONE (00:45)
[2019-07-04 00:46] VITALS: BP 115/95
== END 2019-07-04 00:53 | disposition home or self-care (01) ==
LOC: EDUNIT# 22:17 → ER 22:18
DX: R10.13 Epigastric pain (principal); K21.0 Gastro-esophageal reflux disease with esophagitis; I10 Essential (primary) hypertension; Z88.5 Allergy status to narcotic agent; Z90.49 Acquired absence of other specified parts of digestive tract; Z85.6 Personal history of leukemia; Z82.49 Family history of ischemic heart disease and other diseases of the circulatory system
CPT/HCPCS: 36415; 80053; 83690; 85025; 85652; 86141; 96374; 96375

== ENCOUNTER → 2019-07-10 | Outpatient (CLI) | payer OTHER ==
--- NOTE | 2019-07-10 16:32 | Diagnostic Imaging Report ---
EXAMINATION: MRI of the right lower extremity without contrast from 07/10/2019. TECHNIQUE: Multiplanar, multisequence non contrast-enhanced MRI of the right lower extremity was accomplished. INDICATION: Pain in the front area of the right ankle. Pain runs down the foot when turns ankle outwards. No known injuries. FINDINGS: There is fluid within the peroneal tendon sheaths. There is heterogeneity of the peroneus brevis tendon immediately posterior to the malleolus. A small partial intrasubstance or longitudinal split tear is possible however more distally and proximally, it appears intact with normal attachment at the fifth metatarsal base. The peroneus longus tendon however contains abnormal signal intensity distal to the ankle, most marked within the foot as it courses beneath the cuboid. There is no discontinuity, however the abnormal signal intensity extends to the level of the medial-most cuneiform with mild edema along the plantar aspect of the medial cuneiform. These findings are likely due to a long segment intrasubstance or longitudinal split tear of the tendon and adjacent reactive change in the medial cuneiform. The extensor tendons appear intact. The flexor tendons are also intact. The anterior and posterior inferior tibiofibular ligaments are intact. The anterior talofibular ligament is intact. The posterior talofibular ligament is intact. The deltoid ligament is unremarkable. Calcaneofibular ligament is intact. The Achilles tendon is intact. The plantar fascia is unremarkable. Minimal edema is noted along the undersurface of the cuboid, likely reactive given changes in the adjacent peroneus longus tendon with the other changes within the osseous structures as above. IMPRESSION: 1. Diffuse tendinosis versus intrasubstance or longitudinal split tear of the peroneus longus tendon as discussed above with secondary likely reactive edema in the cuboid and medial-most cuneiform. 2. Tenosynovitis along the course of both peroneal tendons. A short segment longitudinal split tear of the peroneus brevis tendon as discussed above not excluded. Remaining tendons are intact. 3. Ligaments are intact. Dictated by: Dictated on workstation # [id number]
== END ==
LOC: RAD 09:02
PROVIDERS: ATTEND Podiatrist Foot & Ankle Surgery
DX: M67.873 Other specified disorders of tendon, right ankle and foot (principal); M65.871 Other synovitis and tenosynovitis, right ankle and foot
CPT/HCPCS: 73721

== ENCOUNTER → 2019-07-10 | Outpatient (CLI) | payer OTHER ==
--- NOTE | 2019-07-10 09:59 | Diagnostic Imaging Report ---
PROCEDURE: US Gallbladder. TECHNIQUE: Multiple real-time grayscale images were obtained over the right upper quadrant in various projections. INDICATION: Epigastric pain. The liver is enlarged approximately 20 cm. There is increased echogenicity throughout the liver consistent with hepatic steatosis. The portal vein is patent and shows normal direction of flow. The gallbladder is without stones or sludge. No wall thickening or biliary duct dilatation is seen. Pancreas, aorta and IVC were obscured by bowel gas. The right kidney is without calculi or hydronephrosis. There is no ascites. IMPRESSION: 1. Hepatomegaly and hepatic steatosis. 2. No evidence of cholelithiasis or acute cholecystitis. Dictated by: Dictated on workstation # [id number]
== END ==
LOC: RAD 09:00
PROVIDERS: ATTEND Surgery
DX: K76.0 Fatty (change of) liver, not elsewhere classified (principal)
CPT/HCPCS: 76705

== ENCOUNTER → 2019-07-18 | Outpatient (CLI) | payer OTHER | LOC: ORTHO 13:23 | PROVIDERS: ATTEND Orthopaedic Surgery | DX: M22.2X2 Patellofemoral disorders, left knee (principal); M22.2X1 Patellofemoral disorders, right knee; M76.891 Other specified enthesopathies of right lower limb, excluding foot ==

== ENCOUNTER → 2019-07-21 | Outpatient (CLI) | payer OTHER ==
[~2019-07-21] MED LIST changes: +CATHETER FLUSH 10 ML SYR IV PRN
--- NOTE | 2019-07-21 13:48 | Diagnostic Imaging Report ---
INDICATION: Abdominal tenderness. TECHNIQUE: Patient was administered 5.5 mCi technetium 99m Choletec intravenously and imaging over the abdomen was performed. At 1 hour, patient ingested 8 ounces of Ensure and a gallbladder ejection fraction was calculated. Patient denied any discomfort during the exam. There is homogeneous uptake of activity by the liver. Prompt excretion of activity into the common duct and gallbladder is seen. There is normal passage of activity into the small bowel. Gallbladder ejection fraction is normal at 60%. IMPRESSION: Normal HIDA scan and gallbladder ejection fraction. Dictated by: Dictated on workstation # [id number]
== END ==
LOC: CARD 09:39
PROVIDERS: ATTEND Surgery
DX: R10.816 Epigastric abdominal tenderness (principal)
CPT/HCPCS: 78227

== ENCOUNTER → 2019-07-28 | Outpatient (CLI) | payer OTHER ==
[~2019-07-28] MED LIST changes: -CATHETER FLUSH 10 ML SYR IV PRN
--- NOTE | 2019-07-28 10:23 | Diagnostic Imaging Report ---
EXAMINATION: Magnetic resonance imaging of the left knee without intravenous contrast DATE: July 28, 2019. COMPARISON: None. INDICATION: 44-year-old male, left knee pain. TECHNIQUE: Multiplanar, multisequence non contrast enhanced MR imaging was accomplished. FINDINGS: MENISCI: The medial meniscus is intact. The lateral meniscus is intact. LIGAMENTS AND TENDONS: The anterior and posterior cruciate ligaments are intact. The medial collateral ligament is intact. The iliotibial band, mid third lateral capsular ligament, fibular collateral ligament, biceps femoris tendon, and conjoined tendon are intact. The quadriceps tendon and patella ligament are intact. JOINT: The articular cartilage surfaces are intact. There is no knee joint effusion, prominent synovitis, or intra-articular body. BONE: There is unremarkable bone marrow signal. Specifically, negative for fracture, osteomyelitis, osteonecrosis, or marrow replacing process. BURSAE AND SOFT TISSUES: There is a multiloculated Mckeon's cyst measuring approximately 3.5 x 1.3 x 3.3 cm in size. IMPRESSION: 1. Intact menisci and cruciate ligaments. Additional ligaments and tendons are intact. 2. No acute fracture, bone contusion, or other bone marrow signal abnormality. 3. Intact articular cartilage. No knee joint effusion. 4. Multiloculated Mckeon's cyst measuring 3.5 x 1.3 x 3.3 cm in size. Dictated by: Dictated on workstation # [id number]
--- NOTE | 2019-07-28 10:27 | Diagnostic Imaging Report ---
EXAMINATION: Magnetic resonance imaging of the right knee without intravenous contrast. DATE: July 28, 2019. COMPARISON: None. INDICATION: 44-year-old male, right knee pain. TECHNIQUE: Multiplanar, multisequence non contrast enhanced MR imaging was accomplished. FINDINGS: MENISCI: The medial meniscus is intact. The lateral meniscus is intact. LIGAMENTS AND TENDONS: The anterior and posterior cruciate ligaments are intact. The medial collateral ligament is intact. The iliotibial band, mid third lateral capsular ligament, fibular collateral ligament, biceps femoris tendon, and conjoined tendon are intact. The quadriceps tendon and patella ligament are intact. JOINT: The articular cartilage surfaces are intact. There is no knee joint effusion, prominent synovitis, or intra-articular body. BONE: There is unremarkable bone marrow signal. Specifically, negative for fracture, osteomyelitis, osteonecrosis, or marrow replacing process. BURSAE AND SOFT TISSUES: There is no Mckeon's cyst. IMPRESSION: 1. Intact menisci and cruciate ligaments. Additional ligaments and tendons are intact. 2. No acute fracture, bone contusion, or other bone marrow signal abnormality. 3. Intact articular cartilage. No knee joint effusion. Dictated by: Dictated on workstation # [id number]
== END ==
LOC: RAD 08:40
PROVIDERS: ATTEND Orthopaedic Surgery
DX: M71.22 Synovial cyst of popliteal space [Baker], left knee (principal); M22.2X1 Patellofemoral disorders, right knee; M22.2X2 Patellofemoral disorders, left knee
CPT/HCPCS: 73721

== ENCOUNTER → 2019-08-03 | Outpatient (CLI) | payer OTHER | LOC: ORTHO 08:38 | PROVIDERS: ATTEND Orthopaedic Surgery | DX: M71.22 Synovial cyst of popliteal space [Baker], left knee (principal); M22.2X1 Patellofemoral disorders, right knee; M22.2X2 Patellofemoral disorders, left knee ==

== ENCOUNTER → 2019-08-10 | Outpatient (CLI) | payer OTHER | LOC: ORTHO 08:48 | PROVIDERS: ATTEND Orthopaedic Surgery | DX: M22.2X2 Patellofemoral disorders, left knee (principal) ==

== ENCOUNTER → 2019-10-09 | Outpatient (CLI) | payer OTHER ==
[~2019-10-09] MED LIST changes: +ACHD5005 PO; -HYDR-3062 PO; -HYDR-3812 PO
== END ==
LOC: ORTHO 08:41
PROVIDERS: ATTEND Orthopaedic Surgery
DX: M22.2X2 Patellofemoral disorders, left knee (principal); M22.2X1 Patellofemoral disorders, right knee

== ENCOUNTER → 2019-11-09 | Outpatient (CLI) | payer MEDICAID, OTHER ==
[2019-11-09 14:04] LABS: BASOPHILS % (AUTO) 0 % (0-10); EOSINOPHILS # (AUTO) 0.1 10^3/uL (0.0-0.3); EOSINOPHILS % (AUTO) 3 % (0-10); HEMATOCRIT 44 % (40-54); HEMOGLOBIN 16.1 G/DL (13.3-17.7); LYMPHOCYTES # (AUTO) 1.9 X 10^3 (1.0-4.0); LYMPHOCYTES % (AUTO) 40 % (12-44); MEAN CORPUSCULAR HEMOGLOBIN 32 PG (25-34); MEAN CORPUSCULAR HGB CONC 36 G/DL (32-36); MEAN CORPUSCULAR VOLUME 87 FL (80-99); MEAN PLATELET VOLUME 10.6 FL (7.4-10.4); MONOCYTES # (AUTO) 0.4 X 10^3 (0.0-1.0); MONOCYTES % (AUTO) 9 % (0-12); NEUTROPHILS # (AUTO) 2.3 X 10^3 (1.8-7.8); NEUTROPHILS % (AUTO) 49 % (42-75); PLATELET COUNT 168 10^3/uL (130-400); RED CELL DISTRIBUTION WIDTH 12.3 % (10.0-14.5); WHITE BLOOD COUNT 4.7 10^3/uL (4.3-11.0)
[2019-11-09 14:31] LABS: ALANINE AMINOTRANSFERASE 56 U/L (0-55); ALBUMIN 4.4 GM/DL (3.2-4.5); ALKALINE PHOSPHATASE 90 U/L (40-136); BILIRUBIN,TOTAL 0.5 MG/DL (0.1-1.0); BUN/CREATININE RATIO 15; CALCIUM 9.4 MG/DL (8.5-10.1); CARBON DIOXIDE 26 MMOL/L (21-32); CHLORIDE 108 MMOL/L (98-107); CREATININE SERUM 0.85 MG/DL (0.60-1.30); GFR ESTIMATED > 60; GLUCOSE 96 MG/DL (70-105); POTASSIUM 3.8 MMOL/L (3.6-5.0); SODIUM 142 MMOL/L (135-145); TOTAL PROTEIN 7.1 GM/DL (6.4-8.2)
== END ==
LOC: EDSTATUS 13:28 → ONC 14:04
PROVIDERS: ATTEND Internal Medicine Hematology & Oncology
DX: C91.40 Hairy cell leukemia not having achieved remission (principal); D61.818 Other pancytopenia; R16.1 Splenomegaly, not elsewhere classified; E66.01 Morbid (severe) obesity due to excess calories
CPT/HCPCS: 80053; 83615; 85025; 99213

== ENCOUNTER → 2019-12-06 | Outpatient (CLI) | payer MEDICAID | LOC: CARD 09:23 | PROVIDERS: ATTEND Internal Medicine Cardiovascular Disease | DX: I10 Essential (primary) hypertension (principal); E78.5 Hyperlipidemia, unspecified; Z68.41 Body mass index [BMI] 40.0-44.9, adult; I51.7 Cardiomegaly | CPT/HCPCS: 93306 ==

== ENCOUNTER → 2019-12-11 | Outpatient (CLI) | payer MEDICAID ==
[~2019-12-11] VITALS: Ht 175.3 cm; Wt 122.7 kg
[~2019-12-11] MED LIST changes: +CATHETER FLUSH 10 ML SYR IV PRN
[2019-12-11 09:18] VITALS: BP 140/97
[2019-12-11 09:25] VITALS: BP 205/93
[2019-12-11 09:26] VITALS: BP 156/92
--- NOTE | 2019-12-11 11:30 | Cardiology Stress Test Report ---
Stress Test Report Date of Procedure/Referring: Date of Procedure: Dec 11, 2019 PCP Xochilt Vera MD Admitting Physician Ying Ferrarom Indications: Chest pain Baseline Blood Pressure: Blood Pressure Systolic: 156 Blood Pressure Diastolic: 92 Baseline EKG: Baseline EKG: normal sinus rhythm Summary: After explaining the procedure to the patient, patient signed a consent and brought to the nuclear stress laboratory. Patient exercised on standard Josh protocol, EKG, heart rate and blood pressure were monitored continuously, resting and stress doses of radio tracer were injected, imaging was acquired and reviewed in the short axis, horizontal long axis and vertical long axis views TID 0.82 SSS 4 SDS 3 EF 56% Conclusion: 1. Fair exercise tolerance for a total of 6 minutes 45 seconds on standard Josh protocol, total of 7.1 METs achieving 86 percent of maximum expected heart rate 2. Minimal nondiagnostic EKG changes with exercise returned to baseline during recovery 3. Multiple PVCs and ventricular couplets noted during exercise 4. Diaphragmatic attenuation with mild decrease uptake involving the inferior wall and inferoapical segment with mild reversibility 5. Normal left ventricular size with normal contractile to Late ejection fraction 56 percent XOCHILT VERA MD Dec 11, 2019 11:30
== END ==
LOC: CARD 07:52
PROVIDERS: ATTEND Internal Medicine Cardiovascular Disease
DX: R07.89 Other chest pain (principal); I10 Essential (primary) hypertension; E78.5 Hyperlipidemia, unspecified; I49.3 Ventricular premature depolarization; J98.6 Disorders of diaphragm
CPT/HCPCS: 78452; 93017

== ENCOUNTER → 2019-12-12 | Outpatient (CLI) | payer MEDICAID ==
[~2019-12-12] MED LIST changes: +ACET325C7 PO; -CATHETER FLUSH 10 ML SYR IV PRN; +CETI10TA21 PO; +FAMO20TA5 PO; +GEMF600T PO; +UBIQ100C3 PO
== END ==
LOC: LABNPT 06:53
DX: Z20.828 Contact with and (suspected) exposure to other viral communicable diseases (principal)

== ENCOUNTER 2019-12-20 07:47 | Day surgery (SDC) | payer MEDICAID ==
[~2019-12-20] VITALS: Ht 175 cm; Wt 126.0 kg
[2019-12-20] VITALS (9 sets, daily range): BP systolic 119–139; BP diastolic 75–106
[~2019-12-20 07:47] MED LIST changes: -ACET325C7 PO; -CETI10TA21 PO; -FAMO20TA5 PO; -GEMF600T PO; -UBIQ100C3 PO
[2019-12-20] MEDS ORDERED: LIDOCAINE 1% INJ 20 ML 20 ML VIAL ONE (07:54)
[2019-12-20] MEDS ORDERED: NS IV 1000 ML 1,000 ML ONE (07:54)
[2019-12-20] MEDS ORDERED: HEParin (CATH LAB) 2,000 ML IV ONE (07:54)
[2019-12-20] MEDS ORDERED: NS IV 1000 ML 1,000 ML IV SCH ×2 (08:00→09:21)
[2019-12-20 08:23] LABS: HEMOGLOBIN 16.4 G/DL (13.3-17.7); MEAN PLATELET VOLUME 11.1 FL (7.4-10.4); RED CELL DISTRIBUTION WIDTH 12.3 % (10.0-14.5); WHITE BLOOD COUNT 6.4 10^3/uL (4.3-11.0)
[2019-12-20 08:25] LABS: BILIRUBIN,URINE NEGATIVE (NEGATIVE); CLARITY,URINE CLEAR; COLOR,URINE YELLOW; GLUCOSE, URINE (UA) NEGATIVE (NEGATIVE); KETONES,URINE NEGATIVE (NEGATIVE); LEUKOCYTE ESTERASE ,URINE NEGATIVE (NEGATIVE); NITRITE,URINE NEGATIVE (NEGATIVE); PROTEIN,URINE NEGATIVE (NEGATIVE)
[2019-12-20] MEDS ORDERED: MIDAZOLAM 5 MG/5 ML (VERSED) VIAL ONE (08:30)
[2019-12-20] MEDS ORDERED: fentaNYL INJECTION 100 MCG/2 ML AMP ONE (08:31)
[2019-12-20] MEDS ORDERED: FAMO20TA5 PO ×2 (08:32)
[2019-12-20] MEDS ORDERED: CETI10TA21 PO ×2 (08:32)
[2019-12-20] MEDS ORDERED: UBIQ100C3 PO ×2 (08:32)
[2019-12-20] MEDS ORDERED: ACET325C7 PO ×2 (08:32)
[2019-12-20 08:39] LABS: BACTERIA,URINE NEGATIVE /HPF; SQUAMOUS EPITHELIAL CELL,UR RARE /HPF
[2019-12-20 08:43] LABS: ALANINE AMINOTRANSFERASE 50 U/L (0-55); ALBUMIN 4.5 GM/DL (3.2-4.5); ALKALINE PHOSPHATASE 93 U/L (40-136); BILIRUBIN,TOTAL 0.7 MG/DL (0.1-1.0); BUN/CREATININE RATIO 18; CALCIUM 9.4 MG/DL (8.5-10.1); CARBON DIOXIDE 22 MMOL/L (21-32); CHLORIDE 105 MMOL/L (98-107); CHOLESTEROL 163 MG/DL (< 200); CREATININE SERUM 0.88 MG/DL (0.60-1.30); GFR ESTIMATED > 60; GLUCOSE 108 MG/DL (70-105); HDL CHOLESTEROL 32 MG/DL (40-60); SODIUM 140 MMOL/L (135-145); TOTAL PROTEIN 7.4 GM/DL (6.4-8.2); TRIGLYCERIDES 345 MG/DL (<150); VLDL CHOLESTEROL 69 MG/DL (5-40)
[2019-12-20 08:55] LABS: INR 0.9 (0.8-1.4); PROTHROMBIN TIME PATIENT 12.6 SEC (12.2-14.7)
[2019-12-20] MEDS ORDERED: HEParin 1000 UNIT/ML (10ML VIAL) FOR BOLUS ONE (08:55)
[2019-12-20] MEDS ORDERED: VERAPAMIL 5 MG/2 ML (CALAN) VIAL IV ONE (08:55)
--- NOTE | 2019-12-20 08:55 | Cardiac Procedure Note-CS/ASA ---
Pre-Procedure Note Pre-Op Procedure Note H&P Reviewed The H&P was reviewed, patient examined and no changes noted. Date H&P Reviewed: Dec 20, 2019 Time H&P Reviewed: 08:55 Conscious Sedation Pre-Proced Time 08:55 ASA Score 3 For ASA 3 and 4: Consider anesthesia and medical clearance. Also, for patients with a history of failed moderate sedation consider anesthesia. Airway Lungs Heart ASA score ASA 1: a normal healthy patient ASA 2: a patient with a mild systemic disease (mid diabetes, controlled hypertension, obesity x ASA 3: a patient with a severe systemic disease that limits activity (angina, COPD, prior Myocardial infarction) ASA 4: a patient with an incapacitating disease that is a constant threat to life (CHF, renal failure) ASA 5: a moribund patient not expected to survive 24 hrs. (ruptured aneurysm) ASA 6: a declared brain- patient whose organs are being harvested. For emergent operations, add the letter E after the classification Mallampati Classification Grade 3 Sedation Plan Analgesia, Amnesia, Plan communicated to team members, Discussed options with patient/fam, Discussed risks with patient/fam The patient is an appropriate candidate to undergo the planned procedure, sedation, and anesthesia. The patient immediately re-assessed prior to indication. XOCHILT PANCHAL MD Dec 20, 2019 08:55
[2019-12-20] MEDS ORDERED: NITRO DRIP 25000 MCG/D5W 250 ML IV ONE (08:56)
--- NOTE | 2019-12-20 09:15 | Diagnostic Imaging Report ---
INDICATION: Coronary artery disease. FINDINGS: There has been no change from the exam of 09/05/2018. The heart size and vascularity are normal. There is no failure, effusion, pneumothorax, or infiltrate. IMPRESSION: Stable negative chest. Dictated by: Dictated on workstation # [id number]
[2019-12-20] MEDS ORDERED: GEMF600T PO ×2 (09:22)
--- NOTE | 2019-12-20 09:23 | Discharge Inst-Post CATH ---
Discharge Inst-CATH/EP Problems Reviewed?: Yes Post Cardiac Cath/EP D/C Inst Follow Up/Plan Appointment with Dr. Vera's office in 4 weeks <b>CARDIAC CATH/EP PROCEDURE DISCHARGE INSTRUCTIONS</b> ACTIVITY * Go Home directly and rest. * Limit activity of the leg (or wrist if it was used) for 7 days including aerobics, swimming, jogging, bicycling, etc. * Restrict stair-climbing for 7 days if possible, if not, climb up with your non-cath leg, then bring together on the same step. * Avoid lifting, pushing, pulling or excessive movement of the affected extremity for 7 days. * Customary sexual activity may be resumed after 2 days-use caution not to use a position that strains or causes pain to the affected extremity. * No driving for 24 hours. * NO SMOKING. * Avoid straining for bowel movements for 7 days. * Gentle walking on level ground is allowed. * Returning to work will depend on the type of procedure and the results. Your doctor will discuss this with you. CALL YOUR DOCTOR FOR ANY OF THE FOLLOWING: *If bleeding from the puncture site occurs- Apply gentle pressure to site with clean cloth and call your doctor or EMS. * If a knot or lump forms under the skin, increases in size, or causes pain. * If bruising appears to be worsening or moving further down your leg instead of disappearing. * Temperature above 101 F. CARE OF YOUR GROIN INCISION; * Bruising or purple discoloration of the skin near the puncture site is common. * You may shower only, no bathtub bathing for 5 days. Be careful to avoid slipping as your leg may feel stiff. * If a closure device was used on your femoral artery, please see the attached guide regarding care of the device and your leg. * Leave dressing on FOR 24 hours. CARE OF YOUR WRIST INCISION; * Bruising or purple discoloration of the skin near the puncture site is common. * You may shower. * DO NOT submerge wrist. * Leave dressing on FOR 24 hours. XOCHILT VERA MD Dec 20, 2019 09:23
--- NOTE | 2019-12-20 09:27 | Cardiac Cath Report ---
Cardiac Cath Report Physician (s)/Electrical Systems Engineer (s) Physician XOCHILT PANCHAL MD Pre-Procedure Diagnosis Pre-Procedure Diagnosis: Coronary artery disease Post-Procedure Note Procedure Start Date: Dec 20, 2019 Name of Procedure: Left heart catheterization Aortic arch angiogram Findings/Procedure Note PROCEDURE NOTE: 44 years old gentleman with history of hypertension, hyperlipidemia, had an abnormal stress test, has been having chest pain, scheduled for cardiac catheterization possible PTCA After explaining the procedure to the patient, all pros and cons were explained, all questions were answered. The patient signed the consent and then he was placed on the cardiac catheterization laboratory. Groin was prepped SL fashion local anesthesia was used. Sheath placed in the right radial artery, Kermit catheter was used to advance to the left ventricle, coronaries, no left ventriculogram was done, coronary angiogram was done, pressure in the left ventricular was measured, then I pulled the catheter to the aortic arch and aortic arch angiogram due to the significant difficulty advancing the wire through the arch. At the end of the procedure the sheath was removed. Vascular band was used FINDINGS: Hemodynamics LV 117 over 4 end-diastolic pressure 4 Aorta 108/73 mean of 89 ANATOMY: Left Main is free of obstructive disease Left Anterior Descending has mild disease at the midportion nonobstructive disease Left Circumflex has no significant obstructive disease Right Coronory Artery is dominant artery with mild disease nonobstructive disease LV Gram was not done, pressure was measured Aorta evaluation done with aortic arch angiogram showed normal aortic arch, normal origin of the right brachiocephalic artery, left carotid, the left subclavian artery was not well-visualized. No dissection or aneurysm was noted CONCLUSION: 1. Mild coronary artery disease nonobstructive disease 2. Normal left ventricular end-diastolic pressure 3. Normal aortic arch and great vessels of the neck DISCUSSION AND RECOMMENDATION: Medical therapy is recommended, adding Lopid due to hypertriglyceridemia. Anesthesia Type: Conscious Sedation Estimated blood loss (mL): 10 ml Contrast Amount: 40 ml Total Radiation Dose: 586 mGy Post-Procedure Diagnosis Post-operative diagnosis: Chest pain Coronary artery disease Hypertension Hypertriglyceridemia XOCHILT PANCHAL MD Dec 20, 2019 09:27
--- NOTE | 2019-12-20 09:30 | NUR ---
SPOKE WITH THE PT (HE HAD HIS MED BOTTLES WITH HIM) TO COMPLETE THE MED REC THE FOLLOWING ARE FILL DATES: 10-18-2019 PANTOPRAZOLE 40MG #180/90DS 10-18-2019 CETIRIZINE 10MG #90/90DS 11-03-2019 FAMOTIDINE 20MG #90/90DS OTC MEDS: MTV TYLENOL UBIQUINOL
== END 2019-12-20 12:00 | disposition home or self-care (01) ==
LOC: CATH 07:47 → SDC 09:36 → CATH 12:00
PROVIDERS: ATTEND Internal Medicine Cardiovascular Disease
DX: R07.9 Chest pain, unspecified (principal); I25.10 Atherosclerotic heart disease of native coronary artery without angina pectoris; I10 Essential (primary) hypertension; E78.1 Pure hyperglyceridemia; I49.3 Ventricular premature depolarization; E66.01 Morbid (severe) obesity due to excess calories; Z68.41 Body mass index [BMI] 40.0-44.9, adult; K21.0 Gastro-esophageal reflux disease with esophagitis; C91.41 Hairy cell leukemia, in remission; K44.9 Diaphragmatic hernia without obstruction or gangrene; Z82.49 Family history of ischemic heart disease and other diseases of the circulatory system; M22.2X1 Patellofemoral disorders, right knee
CPT/HCPCS: 36221; 36415; 71045; 80053; 80061; 81000; 85027; 85610; 85730; 87081; 93458

== ENCOUNTER 2019-12-28 11:12 | Outpatient (RCR) | payer MEDICAID ==
[~2019-12-28 11:12] MED LIST changes: +ACET325C7 PO; +CETI10TA21 PO; +FAMO20TA5 PO; +GEMF600T PO; +UBIQ100C3 PO
== END 2019-12-28 16:06 | disposition home or self-care (01) ==
PROVIDERS: ATTEND Podiatrist Foot & Ankle Surgery
DX: M76.71 Peroneal tendinitis, right leg (principal)

== ENCOUNTER → 2020-03-19 | Outpatient (CLI) | payer MEDICAID ==
[~2020-03-19] MED LIST changes: -CETI10TA21 PO; +CETI10TA49 PO; -PANT40TA3 PO; +PANT40TA52 PO
--- NOTE | 2020-03-19 10:14 | Diagnostic Imaging Report ---
PROCEDURE: MRI right lower extremity without contrast. TECHNIQUE: Multiplanar, multisequence non contrast-enhanced MRI of the right lower extremity was accomplished. INDICATION: Right foot pain. COMPARISON: There are no prior studies available for comparison. FINDINGS: The sagittal STIR series reveals a lobulated fluid collection about the common peroneal tendon. This area measures 1.4 x 4.0 cm in maximum AP and longitudinal dimensions. The presence of fluid does suggest an inflammatory process and most likely there is an element of tenosynovitis present. The amount of fluid is greater than usually seen for tenosynovitis, however. The common peroneal tendon itself seems to be intact as do the peroneal brevis and longus tendons. There is no clear evidence for a split tear. The other major ligaments and tendons show no sign of an acute injury. There is no abnormal signal arising from the osseous structures to suggest bone edema or fracture. The talar dome is smooth and there is no sign of osteochondritis dissecans. There is no evidence for a joint effusion either. The soft tissues are generally unremarkable. In particular, there is no evidence for plantar fasciitis. IMPRESSION: 1. There is a lobulated fluid collection about the common peroneal tendon. Most likely, this is due to tenosynovitis although the amount of fluid is greater than usually seen. Clinical followup is recommended. 2. The major ligaments and tendons are intact. 3. There is no evidence for an acute bony abnormality and there is no sign of osteochondritis dissecans. Dictated by: Dictated on workstation # [id number]
== END ==
LOC: RAD 03-12 08:45
PROVIDERS: ATTEND Orthopaedic Surgery
DX: M21.6X1 Other acquired deformities of right foot (principal); M79.671 Pain in right foot

== ENCOUNTER → 2020-03-25 | Outpatient (CLI) | payer MEDICAID ==
[2020-03-25 10:44] LABS: ALBUMIN 4.5 GM/DL (3.2-4.5); BILIRUBIN,DIRECT 0.2 MG/DL (0.0-0.3); BILIRUBIN,INDIRECT 0.2 MG/DL; BILIRUBIN,TOTAL 0.4 MG/DL (0.1-1.0); TOTAL PROTEIN 7.2 GM/DL (6.4-8.2)
== END ==
LOC: LAB 10:08
PROVIDERS: ATTEND Internal Medicine Cardiovascular Disease
DX: I25.10 Atherosclerotic heart disease of native coronary artery without angina pectoris (principal); I10 Essential (primary) hypertension; C91.40 Hairy cell leukemia not having achieved remission; E66.01 Morbid (severe) obesity due to excess calories
CPT/HCPCS: 36415; 80061; 80076

== ENCOUNTER → 2020-04-22 | Outpatient (CLI) | payer MEDICAID ==
[2020-04-22 15:10] LABS: BASOPHILS % (AUTO) 0 % (0-10); EOSINOPHILS # (AUTO) 0.2 10^3/uL (0.0-0.3); EOSINOPHILS % (AUTO) 2 % (0-10); HEMATOCRIT 45 % (40-54); HEMOGLOBIN 15.9 g/dL (13.3-17.7); LYMPHOCYTES # (AUTO) 2.4 10^3/uL (1.0-4.0); LYMPHOCYTES % (AUTO) 35 % (12-44); MEAN CORPUSCULAR HEMOGLOBIN 31 pg (25-34); MEAN CORPUSCULAR HGB CONC 35 g/dL (32-36); MEAN CORPUSCULAR VOLUME 89 fL (80-99); MEAN PLATELET VOLUME 11.2 fL (9.0-12.2); MONOCYTES # (AUTO) 0.3 10^3/uL (0.0-1.0); MONOCYTES % (AUTO) 5 % (0-12); NEUTROPHILS # (AUTO) 3.8 10^3/uL (1.8-7.8); NEUTROPHILS % (AUTO) 57 % (42-75); PLATELET COUNT 193 10^3/uL (130-400); WHITE BLOOD COUNT 6.7 10^3/uL (4.3-11.0)
[2020-04-22 15:29] LABS: ALANINE AMINOTRANSFERASE 58 U/L (0-55); ALBUMIN 4.5 GM/DL (3.2-4.5); ALKALINE PHOSPHATASE 86 U/L (40-136); BILIRUBIN,TOTAL 0.6 MG/DL (0.1-1.0); BUN/CREATININE RATIO 19; CALCIUM 9.3 MG/DL (8.5-10.1); CARBON DIOXIDE 23 MMOL/L (21-32); CHLORIDE 106 MMOL/L (98-107); GFR ESTIMATED > 60; GLUCOSE 130 MG/DL (70-105); POTASSIUM 3.9 MMOL/L (3.6-5.0); SODIUM 141 MMOL/L (135-145); TOTAL PROTEIN 7.4 GM/DL (6.4-8.2)
== END ==
LOC: ONC 14:52
PROVIDERS: ATTEND Internal Medicine Hematology & Oncology
DX: C91.40 Hairy cell leukemia not having achieved remission (principal); R74.8 Abnormal levels of other serum enzymes
CPT/HCPCS: 80053; 83615; 85025; 99213

== ENCOUNTER → 2020-05-09 | Outpatient (CLI) | payer MEDICAID ==
[2020-05-09 09:38] LABS: ALBUMIN 4.5 GM/DL (3.2-4.5); BILIRUBIN,DIRECT 0.2 MG/DL (0.0-0.3); BILIRUBIN,INDIRECT 0.4 MG/DL; BILIRUBIN,TOTAL 0.6 MG/DL (0.1-1.0); TOTAL PROTEIN 7.3 GM/DL (6.4-8.2)
== END ==
LOC: LAB 09:01
PROVIDERS: ATTEND Physician Assistant
DX: R74.8 Abnormal levels of other serum enzymes (principal)
CPT/HCPCS: 36415; 80076

== ENCOUNTER → 2020-06-04 | Outpatient (CLI) | payer MEDICAID | LOC: LABNPT 08:20 | DX: Z11.59 Encounter for screening for other viral diseases (principal) | CPT/HCPCS: 87635 ==

== ENCOUNTER 2020-06-08 08:48 | Emergency (ER) | payer MEDICAID ==
[~2020-06-08] VITALS: Ht 175.2 cm; Wt 127.2 kg
--- NOTE | 2020-06-08 09:06 | ED EENT ---
History of Present Illness General Chief Complaint: Oral/Throat Problems Stated Complaint: HARD TO SWALLOW, S/P R FOOT SX Source: patient Exam Limitations: no limitations History of Present Illness Date Seen by Provider: Jun 08, 2020 Time Seen by Provider: 08:48 Initial Comments Patient presents to the ER by private conveyance from home with chief complaint that he had surgery yesterday on his foot by podiatry at [facility]. He says he feels like he has a progressively worsening sore throat difficulty swallowing fluids and a swollen uvula. He is not having any nausea fever chills cough shortness of air diarrhea loss of sense of taste or smell. He has a negative Covid swab from 4 days ago. No known sick contacts. He has had EGD by Dr. Neal in the past demonstrating hiatal hernia and GERD. Allergies and Home Medications Allergies Coded Allergies: morphine (Verified Adverse Reaction, Mild, SWEATS AND VOMITING, 06/15/19) Home Medications Acetaminophen 325 Mg Capsule, 50 MG PO Q8H PRN for PAIN-MILD (1-4), (Reported) Cetirizine HCl 10 Mg Tablet, 10 MG PO DAILY, (Reported) Chlorhexidine Gluconate 473 Ml Mouthwash, 30 ML MM BID Prescribed by: AZALIA CHANDLER on 06/08/20 0934 Famotidine 20 Mg Tablet, 20 MG PO HS, (Reported) Gemfibrozil 600 Mg Tablet, 600 MG PO BID Prescribed by: XOCHILT PANCHAL on 12/20/19 0922 Multivits-Minerals/FA/Lycopene 1 Each Capsule, 1 CAP PO DAILY, (Reported) Pantoprazole Sodium 40 Mg Tablet.dr, 40 MG PO BID, (Reported) Ubiquinol 100 Mg Capsule, 100 MG PO DAILY, (Reported) [viscous lidocaine] 2% BOT, 15 ML TOP Q6H PRN for PAIN-BREAKTHROUGH Prescribed by: AZALIA CHANDLER on 06/08/20 0907 Patient Home Medication List Home Medication List Reviewed: Yes Review of Systems Review of Systems Constitutional: No chills, No diaphoresis Eyes: Denies Blindness, Denies Blurred Vision Ears: Denies Dizziness, Denies Pain Nose: denies congestion, denies epistaxis, denies pain, denies bloody discharge Mouth: denies clots, denies pain, denies swelling Throat: pain, swelling, hoarse, painful swallowing, difficulty with fluids Respiratory: No cough, No short of breath All Other Systems Reviewed Negative Unless Noted: Yes Past [place]-Qrikoy-Afpetv Hx Patient Social History Alcohol Use: Denies Use Recreational Drug Use: No Smoking Status: Never a Smoker 2nd Hand Smoke Exposure: No Recent Hopitalizations: No Immunizations Up To Date Tetanus Booster (TDap): Unknown PED Vaccines UTD: Yes Date of Influenza Vaccine: Apr 04, 2019 Seasonal Allergies Seasonal Allergies: No Past Medical History Surgeries: Yes (PERIRECTAL ABSCESS; SPHINCTEROTOMY; EGD/COLONOSCOPY) Appendectomy Respiratory: No Currently Using CPAP: No Currently Using BIPAP: No Cardiac: Yes Heart Murmur, High Cholesterol, Hypertension Neurological: No Reproductive Disorders: No Sexually Transmitted Disease: No HIV/AIDS: No Genitourinary: No Gastrointestinal: Yes (RECTAL BLEEDING, HX POLYPS; PERIRECTAL ABSCESS) Gastroesophageal Reflux, Chronic Diarrhea, Polyps, Hiatal Hernia Musculoskeletal: Yes Arthritis, Fractures Endocrine: No HEENT: No Loss of Vision: Denies Hearing Impairment: Denies Cancer: Yes (TOD CELL LEUKEMIA) Leukemia Did You Recieve Any Treatments: Yes What Type of Treatment Did You: Chemotherapy Psychosocial: No Integumentary: No Blood Disorders: No Adverse Reaction/Blood Tranf: No Family Medical History Cardiovascular disease 19 FATHER 19 MOTHER (bipass surgery) Diabetes mellitus 19 MOTHER Hypertension 19 FATHER Myocardial infarction 19 FATHER ( at age 46 from [place]) Heart Disease, Diabetes Physical Exam Vital Signs Vital Signs - First Documented 06/08/20 08:52 Temp 37.3 Pulse 100 Resp 18 B/P (MAP) 155/88 (110) Pulse Ox 94 O2 Delivery Room Air Height, Weight, BMI Height: 5'9.00" Weight: 260lbs. 0.0oz. 117.980100hi; 41.14 BMI Method:Stated General Appearance: WD/WN, no apparent distress Eyes: bilateral eye normal inspection, bilateral eye PERRL, bilateral eye EOMI Ears: bilateral ear auricle normal, bilateral ear canal normal, bilateral ear TM normal Nose: normal inspection; No active bleeding, No discharge Mouth/Throat: normal mouth inspection, tonsillar exudate, tonsillar swelling, uvula swelling (Mild), other (Erythema injection of the retropharynx with a few white exudative plaques) Neck: full range of motion, normal inspection Cardiovascular: normal peripheral pulses, regular rate, rhythm, no edema, tachycardia (105) Progress/Results/Core Measures Results/Orders Lab Results Laboratory Tests Test 06/08/20 09:05 Range/Units Group A Streptococcus Screen NEGATIVE NEGATIVE Micro Results Microbiology 06/08/20 STEFANIE Preparation - Final, Complete My Orders Orders - AZALIA CHANDLER Rapid Strep A Screen (06/08/20 08:58) Stefanie Prep (06/08/20 09:07) Vital Signs/I&O 06/08/20 08:52 Temp 37.3 Pulse 100 Resp 18 B/P (MAP) 155/88 (110) Pulse Ox 94 O2 Delivery Room Air Progress Progress Note : Time: 09:03 Progress Note Rapid strep screen and a wet prep were obtained. Could be a yeast. He is not on antibiotics presently but presumably would have gotten intraoperative antibiotics. No history of immunocompromise. We will treat appropriately. If both tests are negative we will put him on Magic mouthwash and a liquid diet and encourage him to increase his fluid intake. No evidence of airway compromise. Departure Impression Primary Impression: Tonsillopharyngitis Disposition: 01 HOME, SELF-CARE Condition: Stable Departure-Patient Inst. Decision time for Depature: 09:36 Referrals: NO,LOCAL PHYSICIAN (PCP/Family) Primary Care Physician Patient Instructions: Sore Throat, Adult (DC) Add. Discharge Instructions: You need to drink more fluids. Sports drinks are encouraged. Throat lozenges may be helpful for discomfort. You may gargle and spit or swallow 15 mL of viscous lidocaine every 6 hours as necessary for intense, intractable pain keeping you from drinking. Return to the nearest ER if you are having intractable nausea, pain or inability to keep up with your fluid intake. Magic mouthwash 1 ounce swish in your mouth for 30 seconds and then spit twice daily for 1 week. We we will obtain a culture of the swabs and in the next 2 to 3 days we will call you if any bacteria grow out. We will then send out a prescription for antibiotics if the culture grows out bacteria. All discharge instructions reviewed with patient and/or family. Voiced understanding. Scripts Chlorhexidine Gluconate (Chlorhexidine Gluconate) 473 Ml Mouthwash 30 ML MM BID for 7 Days, #473 ML 0 Refills Prov: AZALIA CHANDLER 06/08/20 [viscous lidocaine] 2% BOT No Conflict Check 15 ML TOP Q6H PRN for PAIN-BREAKTHROUGH for 3 Days, #100 ML 0 Refills Prov: AZALIA CHANDLER 06/08/20 AZALIA CHANDLER Jun 08, 2020 09:06
[2020-06-08] MEDS ORDERED: viscous lidocaine TOP (09:07)
[2020-06-08] MEDS ORDERED: NFCHLORHGL MM (09:34)
[2020-06-08 09:38] VITALS: BP 134/84
== END 2020-06-08 09:41 | disposition home or self-care (01) ==
LOC: EDUNIT# 08:48 → ER 08:50
DX: B00.2 Herpesviral gingivostomatitis and pharyngotonsillitis (principal); K21.9 Gastro-esophageal reflux disease without esophagitis; E78.00 Pure hypercholesterolemia, unspecified; Z82.49 Family history of ischemic heart disease and other diseases of the circulatory system; Z83.3 Family history of diabetes mellitus; Z85.6 Personal history of leukemia; Z88.5 Allergy status to narcotic agent
CPT/HCPCS: 87220; 87430; 99285

== ENCOUNTER → 2020-10-21 | Outpatient (CLI) | payer MEDICAID ==
[~2020-10-21] MED LIST changes: +NFCHLORHGL MM; +UBIQ100C2 PO; -UBIQ100C3 PO; +viscous lidocaine TOP
[2020-10-21 15:05] LABS: BASOPHILS % (AUTO) 1 % (0-10); EOSINOPHILS # (AUTO) 0.2 10^3/uL (0.0-0.3); EOSINOPHILS % (AUTO) 3 % (0-10); HEMATOCRIT 47 % (40-54); HEMOGLOBIN 16.1 g/dL (13.3-17.7); LYMPHOCYTES # (AUTO) 2.1 X 10^3 (1.0-4.0); LYMPHOCYTES % (AUTO) 34 % (12-44); MEAN CORPUSCULAR HEMOGLOBIN 30 pg (25-34); MEAN CORPUSCULAR HGB CONC 35 g/dL (32-36); MEAN CORPUSCULAR VOLUME 88 fL (80-99); MEAN PLATELET VOLUME 10.5 fL (9.0-12.2); MONOCYTES # (AUTO) 0.5 X 10^3 (0.0-1.0); MONOCYTES % (AUTO) 8 % (0-12); NEUTROPHILS # (AUTO) 3.5 X 10^3 (1.8-7.8); NEUTROPHILS % (AUTO) 54 % (42-75); PLATELET COUNT 174 10^3/uL (130-400); WHITE BLOOD COUNT 6.4 10^3/uL (4.3-11.0)
[2020-10-21 15:29] LABS: ALANINE AMINOTRANSFERASE 57 U/L (0-55); ALBUMIN 4.4 GM/DL (3.2-4.5); ALKALINE PHOSPHATASE 104 U/L (40-136); BILIRUBIN,TOTAL 0.7 MG/DL (0.1-1.0); BUN/CREATININE RATIO 18; CALCIUM 9.3 MG/DL (8.5-10.1); CARBON DIOXIDE 26 MMOL/L (21-32); CHLORIDE 105 MMOL/L (98-107); CREATININE SERUM 0.82 MG/DL (0.60-1.30); GFR ESTIMATED > 60; GLUCOSE 101 MG/DL (70-105); POTASSIUM 3.9 MMOL/L (3.6-5.0); SODIUM 140 MMOL/L (135-145); TOTAL PROTEIN 7.4 GM/DL (6.4-8.2)
== END ==
LOC: ONC 14:48
PROVIDERS: ATTEND Internal Medicine Hematology & Oncology
DX: C91.40 Hairy cell leukemia not having achieved remission (principal); E66.01 Morbid (severe) obesity due to excess calories; Z98.890 Other specified postprocedural states
CPT/HCPCS: 80053; 83615; 85025; 99213

== ENCOUNTER → 2021-02-18 | Outpatient (CLI) | payer MEDICAID ==
[2021-02-18 10:47] LABS: ALBUMIN 4.5 GM/DL (3.2-4.5); BILIRUBIN,TOTAL 0.9 MG/DL (0.1-1.0); CALCIUM 9.8 MG/DL (8.5-10.1); CREATININE SERUM 0.83 MG/DL (0.60-1.30); POTASSIUM 4.2 MMOL/L (3.6-5.0); TOTAL PROTEIN 7.5 GM/DL (6.4-8.2)
== END ==
LOC: LAB 10:03
PROVIDERS: ATTEND Physician Assistant
DX: E78.2 Mixed hyperlipidemia (principal)
CPT/HCPCS: 36415; 80053; 80061

== ENCOUNTER 2021-03-13 18:39 | Emergency (ER) | payer MEDICAID ==
[~2021-03-13] VITALS: Ht 178 cm; Wt 135.0 kg
--- NOTE | 2021-03-13 19:28 | ED Integumentary General ---
General Chief Complaint: Skin/Wound Problems Stated Complaint: MASS ON L LEG Nursing Triage Note: Pt ambulated to ER with complaint of small mass on lateral lower leg that began on Wednesday. Pt was seen on Wednesday and has been taking bactrum. Pt noticed more redness and pain in the area today. Source: patient Exam Limitations: no limitations History of Present Illness Date Seen by Provider: Mar 13, 2021 Time Seen by Provider: 19:28 Initial Comments To ER with a bump to the lateral aspect of the left lower leg. This was noticed a few days ago. It seemed to start as a mosquito bite or a small red bump that was itchy. It then became more painful red and swollen over the subsequent few days. He was seen at [facility] 2 days ago and given Bactrim but denies any improvement. He denies also any systemic symptoms such as body aches fevers chills. Timing/Duration: getting worse Severity: moderate Possible Cause: no cause identified Associated Symptoms: denies symptoms Allergies and Home Medications Allergies Coded Allergies: morphine (Verified Adverse Reaction, Mild, SWEATS AND VOMITING, 06/15/19) Patient Home Medication List Home Medication List Reviewed: Yes Acetaminophen (Tylenol) 325 Mg Capsule, 50 MG PO Q8H PRN for PAIN-MILD (1-4), (Reported) Entered as Reported by: ILYA VASQUEZ on 12/20/19 0832 Cetirizine HCl (Zyrtec) 10 Mg Tablet, 10 MG PO DAILY, (Reported) Entered as Reported by: ILYA VASQUEZ on 12/20/19 0832 Chlorhexidine Gluconate (Chlorhexidine Gluconate) 473 Ml Mouthwash, 30 ML MM BID Prescribed by: AZALIA CHANDLER on 06/08/20 0934 Famotidine (Famotidine) 20 Mg Tablet, 20 MG PO HS, (Reported) Entered as Reported by: ILYA VASQUEZ on 12/20/19 0832 Gemfibrozil (Lopid) 600 Mg Tablet, 600 MG PO BID Prescribed by: XOCHILT PANCHAL on 12/20/19 0922 Multivits-Minerals/FA/Lycopene (Men's Daily Formula Capsule) 1 Each Capsule, 1 C AP PO DAILY, (Reported) Entered as Reported by: DESHAWN TOVRA on 10/25/17 1004 Pantoprazole Sodium (Pantoprazole Sodium) 40 Mg Tablet.dr, 40 MG PO BID, (Reported) Entered as Reported by: JOSEPH COLEMAN on 08/05/18 1558 Ubiquinol (Ubiquinol) 100 Mg Capsule, 100 MG PO DAILY, (Reported) Entered as Reported by: ILYA VASQUEZ on 12/20/19 0832 [viscous lidocaine] 2% BOT, 15 ML TOP Q6H PRN for PAIN-BREAKTHROUGH Prescribed by: AZALIA CHANDLER on 06/08/20 0907 Review of Systems Review of Systems Constitutional: see HPI EENTM: see HPI Respiratory: no symptoms reported Cardiovascular: no symptoms reported Genitourinary: no symptoms reported Musculoskeletal: no symptoms reported Skin: see HPI Psychiatric/Neurological: No Symptoms Reported Endocrine: No Symptoms Reported Hematologic/Lymphatic: No Symptoms Reported Past Lhwljag-Locrdv-Nltjlz Hx Patient Social History Tobacco Use?: No Smoking Status: Never a Smoker Use of E-Cig and/or Vaping dev: No Substance use?: No Alcohol Use?: No Pt feels they are or have been: No Immunizations Up To Date Tetanus Booster (TDap): Unknown PED Vaccines UTD: Yes Influenza Vaccine Up-to-Date: No; Not Current First/Initial COVID19 Vaccinat: October 30, 2020 Second COVID19 Vaccination Deon: November 27, 2020 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 Seasonal Allergies Seasonal Allergies: No Past Medical History Surgeries: Yes (PERIRECTAL ABSCESS; SPHINCTEROTOMY; EGD/COLONOSCOPY) Appendectomy, Orthopedic Respiratory: No Currently Using CPAP: No Currently Using BIPAP: No Cardiac: Yes Heart Murmur, High Cholesterol, Hypertension Neurological: No Reproductive Disorders: No Sexually Transmitted Disease: No HIV/AIDS: No Genitourinary: No Gastrointestinal: Yes (RECTAL BLEEDING, HX POLYPS; PERIRECTAL ABSCESS) Gastroesophageal Reflux, Chronic Diarrhea, Polyps, Hiatal Hernia Musculoskeletal: Yes Arthritis, Fractures Endocrine: No HEENT: No Loss of Vision: Denies Hearing Impairment: Denies Cancer: Yes (TOD CELL LEUKEMIA) Leukemia Did You Recieve Any Treatments: Yes What Type of Treatment Did You: Chemotherapy Psychosocial: No Integumentary: No Blood Disorders: No Adverse Reaction/Blood Tranf: No Family Medical History Cardiovascular disease 19 FATHER 19 MOTHER (bipass surgery) Diabetes mellitus 19 MOTHER Hypertension 19 FATHER Myocardial infarction 19 FATHER ( at age 46 from [place]) Heart Disease, Diabetes Physical Exam Vital Signs Vital Signs - First Documented 03/13/21 18:49 Temp 36.6 Pulse 104 Resp 16 B/P (MAP) 133/99 (110) Pulse Ox 96 O2 Delivery Room Air Capillary Refill : Less Than 3 Seconds General Appearance: WD/WN, no apparent distress Neck: non-tender, full range of motion Cardiovascular: regular rate, rhythm, no murmur Respiratory: no respiratory distress, no accessory muscle use Gastrointestinal: normal bowel sounds, non tender Extremities: normal range of motion, non-tender Neurologic/Psychiatric: alert, normal mood/affect, oriented x 3 Skin: normal color, warm/dry Skin Problem Location: lower extremities Skin Problem Character: erythema, other (There is a 10 x 15 cm area of ill- defined erythema to the lateral aspect of the left lower leg. There is some induration. Bedside ultrasound shows a very small fluid collection. This was anesthetized with 1 mL of 1% lidocaine without epinephrine and then incised with a small incision using 11 blade scalpel. Only bloody material was expressed. No purulence. Culture was collected and sent to lab. We will check some blood work and give him some empiric clindamycin IV.) Progress/Results/Core Measures Results/Orders Lab Results Laboratory Tests Test 03/13/21 19:25 Range/Units White Blood Count 7.8 4.3-11.0 10^3/uL Red Blood Count 4.78 4.30-5.52 10^6/uL Hemoglobin 15.1 13.3-17.7 g/dL Hematocrit 43 40-54 % Mean Corpuscular Volume 90 80-99 fL Mean Corpuscular Hemoglobin 32 25-34 pg Mean Corpuscular Hemoglobin Concent 35 32-36 g/dL Red Cell Distribution Width 11.7 10.0-14.5 % Platelet Count 185 130-400 10^3/uL Mean Platelet Volume 10.6 9.0-12.2 fL Immature Granulocyte % (Auto) 1 % Neutrophils (%) (Auto) 63 42-75 % Lymphocytes (%) (Auto) 27 12-44 % Monocytes (%) (Auto) 6 0-12 % Eosinophils (%) (Auto) 3 0-10 % Basophils (%) (Auto) 1 0-10 % Neutrophils # (Auto) 4.9 1.8-7.8 10^3/uL Lymphocytes # (Auto) 2.1 1.0-4.0 10^3/uL Monocytes # (Auto) 0.5 0.0-1.0 10^3/uL Eosinophils # (Auto) 0.2 0.0-0.3 10^3/uL Basophils # (Auto) 0.0 0.0-0.1 10^3/uL Immature Granulocyte # (Auto) 0.0 0.0-0.1 10^3/uL Sodium Level 139 135-145 MMOL/L Potassium Level 4.0 3.6-5.0 MMOL/L Chloride Level 105 98-107 MMOL/L Carbon Dioxide Level 21 21-32 MMOL/L Anion Gap 13 5-14 MMOL/L Blood Urea Nitrogen 15 7-18 MG/DL Creatinine 0.85 0.60-1.30 MG/DL Estimat Glomerular Filtration Rate 97 BUN/Creatinine Ratio 18 Glucose Level 107 H 70-105 MG/DL Calcium Level 9.7 8.5-10.1 MG/DL C-Reactive Protein High Sensitivity 1.86 H 0.00-0.50 MG/DL My Orders Orders - ARTEMIO MONTES APRN Cbc With Automated Diff (03/13/21 19:16) Hs C Reactive Protein (03/13/21 19:16) Basic Metabolic Panel (03/13/21 19:16) Ed Iv/Invasive Line Start (03/13/21 19:16) Clindamycin 900 Mg/50 Ml Ivpb (Cleocin P (03/13/21 19:30) Medications Given in ED Current Medications Medications Dose Ordered Sig/Pablo Route Start Time Stop Time Status Last Admin Dose Admin Clindamycin Phosphate/Dextrose 50 ml @ 100 mls/hr ONCE ONCE IV 03/13/21 19:30 03/13/21 19:59 DC 03/13/21 19:29 100 MLS/HR Vital Signs/I&O 03/13/21 18:49 Temp 36.6 Pulse 104 Resp 16 B/P (MAP) 133/99 (110) Pulse Ox 96 O2 Delivery Room Air Blood Pressure Mean: 110 Departure Impression Primary Impression: Cellulitis of left leg Disposition: HOME, SELF-CARE Condition: Stable Departure-Patient Inst. Decision time for Depature: 19:32 Referrals: NO,LOCAL PHYSICIAN (PCP/Family) Primary Care Physician Patient Instructions: Cellulitis (Skin Infection), Adult (DC) Add. Discharge Instructions: 1. Continue the Bactrim 2. Add the clindamycin 3 times daily as directed. Elevate the leg is much as possible return to ER for any worsening and follow-up with your doctor next week for recheck. All discharge instructions reviewed with patient and/or family. Voiced understanding. Scripts Clindamycin HCl (Clindamycin HCl) 300 Mg Capsule 300 MG PO TID, #24 CAP Prov: ARTEMIO MONTES APRN 03/13/21 ARTEMIO MONTES APRN Mar 13, 2021 19:28
[2021-03-13] MEDS ORDERED: CLINDAMYCIN 900 MG/50 ML IVPB 50 ML IV ONE (19:30)
[2021-03-13 19:35] LABS: BASOPHILS % (AUTO) 1 % (0-10); EOSINOPHILS # (AUTO) 0.2 10^3/uL (0.0-0.3); EOSINOPHILS % (AUTO) 3 % (0-10); HEMATOCRIT 43 % (40-54); HEMOGLOBIN 15.1 g/dL (13.3-17.7); LYMPHOCYTES # (AUTO) 2.1 10^3/uL (1.0-4.0); LYMPHOCYTES % (AUTO) 27 % (12-44); MEAN CORPUSCULAR HEMOGLOBIN 32 pg (25-34); MEAN CORPUSCULAR HGB CONC 35 g/dL (32-36); MEAN CORPUSCULAR VOLUME 90 fL (80-99); MEAN PLATELET VOLUME 10.6 fL (9.0-12.2); MONOCYTES # (AUTO) 0.5 10^3/uL (0.0-1.0); MONOCYTES % (AUTO) 6 % (0-12); NEUTROPHILS # (AUTO) 4.9 10^3/uL (1.8-7.8); NEUTROPHILS % (AUTO) 63 % (42-75); PLATELET COUNT 185 10^3/uL (130-400); WHITE BLOOD COUNT 7.8 10^3/uL (4.3-11.0)
[2021-03-13 19:48] LABS: CALCIUM 9.7 MG/DL (8.5-10.1)
[2021-03-13 19:53] LABS: CREATININE SERUM 0.85 MG/DL (0.60-1.30)
[2021-03-13] MEDS ORDERED: CLIN300C12 PO (20:09)
[2021-03-13 20:16] VITALS: BP 107/59
== END 2021-03-13 20:18 | disposition home or self-care (01) ==
LOC: EDUNIT# 18:39 → ER 18:41
DX: L03.116 Cellulitis of left lower limb (principal); I10 Essential (primary) hypertension; K21.9 Gastro-esophageal reflux disease without esophagitis; E78.00 Pure hypercholesterolemia, unspecified; Z79.899 Other long term (current) drug therapy
CPT/HCPCS: 36415; 80048; 85025; 86141

== ENCOUNTER 2021-04-07 20:03 | Emergency (ER) | payer MEDICAID ==
[~2021-04-07] VITALS: Ht 178 cm; Wt 135.0 kg
[~2021-04-07 20:03] MED LIST changes: +CLIN300C12 PO
--- NOTE | 2021-04-07 20:58 | ED General ---
General Chief Complaint: Abdominal/GI Problems Stated Complaint: R SIDE PAIN Nursing Triage Note: Pt ambulatory to ED by POV with c/o R sided abd/flank pain. Pt reports last Wednesday he was moving a washing machine and felt like he pulled a muscle in his muscle in his abd and has had pain since. (MARIE ELIZABETH) History of Present Illness Date Seen by Provider: Apr 07, 2021 Time Seen by Provider: 20:49 Initial Comments Patient is a 46 year old male that presents to the emergency room with RUQ pain that started 6 days ago. Patient was replacing a washer and had to reach down in an awkward position to shut off the water. [place] a "pulling" sensation and felt like something "pulled out". The pain has been present for the past six days as a deep, achy pain but starting this afternoon got progressively worse, this is what made the patient decide to come to ER today. The pain is located along the costal margins overlying the liver. The pain is constant and does not radiate. The pain does increase with movement and is described as a sharp stabbing pain. Patient has tried tylenol leading up to today with no relief. Has taken nothing for the pain today. Patient rates the pain a 6/10 at rest and a 10/10 with movement, especially movement of upper extremities. There is no pain to palpation in any of the abdominal quadrants. The patient did not report pain wh en I palpated under the right upper costal margins. Timing/Duration: 6-7 Days Severity: Mild Modifying Factors: improves with Movement Associated Systoms: Denies Symptoms (MARIE ELIZABETH) Allergies and Home Medications Allergies Coded Allergies: morphine (Verified Adverse Reaction, Mild, SWEATS AND VOMITING, 06/15/19) Patient Home Medication List Home Medication List Reviewed: Yes (MARIE ELIZABETH) Acetaminophen (Tylenol) 325 Mg Capsule, 50 MG PO Q8H PRN for PAIN-MILD (1-4), (Reported) Entered as Reported by: ILYA VASQUEZ on 12/20/19 0832 Cetirizine HCl (Zyrtec) 10 Mg Tablet, 10 MG PO DAILY, (Reported) Entered as Reported by: ILYA VASQUEZ on 12/20/19 0832 Chlorhexidine Gluconate (Chlorhexidine Gluconate) 473 Ml Mouthwash, 30 ML MM BID Prescribed by: AZALIA CHANDLER on 06/08/20 0934 Clindamycin HCl (Clindamycin HCl) 300 Mg Capsule, 300 MG PO TID Prescribed by: ARTEMIO MONTES on 03/13/212008 Famotidine (Famotidine) 20 Mg Tablet, 20 MG PO HS, (Reported) Entered as Reported by: ILYA VASQUEZ on 12/20/19 0832 Gemfibrozil (Lopid) 600 Mg Tablet, 600 MG PO BID Prescribed by: XOCHILT PANCHAL on 12/20/19 0922 Multivits-Minerals/FA/Lycopene (Men's Daily Formula Capsule) 1 Each Capsule, 1 CAP PO DAILY, (Reported) Entered as Reported by: DESHAWN TOVAR on 10/25/17 1004 Pantoprazole Sodium (Pantoprazole Sodium) 40 Mg Tablet.dr, 40 MG PO BID, (Reported) Entered as Reported by: JOSEPH COLEMAN on 08/05/18 1558 Tramadol HCl (Tramadol HCl) 50 Mg Tablet, 50 MG PO Q6H PRN for PAIN Prescribed by: ORALIA MADRIGAL on 04/07/21 2142 Ubiquinol (Ubiquinol) 100 Mg Capsule, 100 MG PO DAILY, (Reported) Entered as Reported by: ILYA VASQUEZ on 12/20/19 0832 [viscous lidocaine] 2% BOT, 15 ML TOP Q6H PRN for PAIN-BREAKTHROUGH Prescribed by: AZALIA CHANDLER on 06/08/20 0907 Review of Systems Review of Systems Constitutional: No chills, No diaphoresis, No dizziness, No fever Respiratory: No cough, No short of breath Cardiovascular: No chest pain Gastrointestinal: No abdominal pain, No melena, No nausea, No vomiting Genitourinary: No decreased output, No dysuria Musculoskeletal: other (Costal pain RUQ at costal margins) (MARIE ELIZABETH) Past Exmgpsd-Lthtot-[place]aw[place] Hx Immunizations Up To Date Tetanus Booster (TDap): Unknown PED Vaccines UTD: Yes First/Initial COVID19 Vaccinat: October 30, 2020 Second COVID19 Vaccination Deon: November 27, 2020 (MARIE ELIZABETH) Seasonal Allergies Seasonal Allergies: No (MARIE ELIZABETH) Past Medical History Surgeries: Yes (PERIRECTAL ABSCESS; SPHINCTEROTOMY; EGD/COLONOSCOPY) Appendectomy, Orthopedic (Right foot) Respiratory: No Currently Using CPAP: No Currently Using BIPAP: No Cardiac: Yes Heart Murmur, High Cholesterol, Hypertension Neurological: No Reproductive Disorders: No Sexually Transmitted Disease: No HIV/AIDS: No Genitourinary: No Gastrointestinal: Yes (RECTAL BLEEDING, HX POLYPS; PERIRECTAL ABSCESS) Gastroesophageal Reflux, Chronic Diarrhea, Polyps, Hiatal Hernia Musculoskeletal: Yes Arthritis, Fractures Endocrine: No HEENT: No Loss of Vision: Denies Hearing Impairment: Denies Cancer: Yes (TOD CELL LEUKEMIA) Leukemia Did You Recieve Any Treatments: Yes What Type of Treatment Did You: Chemotherapy Psychosocial: No Integumentary: No Blood Disorders: No Adverse Reaction/Blood Tranf: No (MARIE ELIZABETH) Family Medical History Cardiovascular disease 19 FATHER 19 MOTHER (bipass surgery) Diabetes mellitus 19 MOTHER Hypertension 19 FATHER Myocardial infarction 19 FATHER ( at age 46 from [place]) Heart Disease, Diabetes (MARIE ELIZABETH) Physical Exam Vital Signs Vital Signs - First Documented 04/07/21 20:20 Temp 36.5 Pulse 99 Resp 18 B/P (MAP) 142/106 (118) Pulse Ox 97 O2 Delivery Room Air (ORALIA MADRIAGL MD) Vital Signs Capillary Refill : Less Than 3 Seconds (MARIE ELIZABETH) Height, Weight, BMI Height: 5'9.00" Weight: 260lbs. 0.0oz. 117.911357rd; 42.00 BMI Method:Stated General Appearance: No Apparent Distress, WD/WN Respiratory: Chest Non Tender, Lungs Clear, Normal Breath Sounds, No Accessory Muscle Use, No Respiratory Distress Cardiovascular: Regular Rate, Rhythm, Normal Peripheral Pulses Gastrointestinal: No Organomegaly, No Pulsatile Mass, Non Tender, Soft Rectal: Deferred Neurologic/Psychiatric: Alert, Oriented x3, Normal Mood/Affect Skin: Normal Color, Warm/Dry (MARIE ELIZABETH) Progress/Results/Core Measures Suspected Sepsis SIRS Temperature: Pulse: 99 Respiratory Rate: 18 Blood Pressure 142 /106 Mean: 118 (MARIE ELIZABETH) Results/Orders My Orders Orders - ORALIA MADRIGAL MD Tramadol Tablet (Ultram Tablet) (04/07/21 21:45) (ORALIA MADRIGAL MD) Vital Signs/I&O 04/07/21 20:20 Temp 36.5 Pulse 99 Resp 18 B/P (MAP) 142/106 (118) Pulse Ox 97 O2 Delivery Room Air (ORALIA MADRIGAL MD) Vital Signs/I&O Capillary Refill : Less Than 3 Seconds (MARIE ELIZABETH) Blood Pressure Mean: 118 Progress Note : Progress Note Discussed with patient the diagnosis of a muscle sprain and plan of care and they were in agreement. Understood the reasoning behind not ordering an x-ray. Patient stated that were told by their GI doctor to not take NSAIDs due to history of ulcer and blood in stool. (MARIE ELIZABETH) Departure Impression Primary Impression: Chest wall pain Disposition: HOME, SELF-CARE Condition: Stable Departure-Patient Inst. Decision time for Depature: 21:20 (MARIE ELIZABETH) [place] [facility] [place] Primary Care Physician Patient Instructions: Chest Pain That Is Not Caused by the Heart (DC) Add. Discharge Instructions: Rest and apply heat/ice to affected area whenever possible until pain resolves Take tramadol over the next few days to help control pain Follow up with PCP in two weeks if pain is not resolving Return to ER if you develop shortness of breath, blood in stool/urine, or chest pain All discharge instructions reviewed with patient and/or family. Voiced understan mono. Scripts Tramadol HCl (Tramadol HCl) 50 Mg Tablet 50 MG PO Q6H PRN for PAIN, #10 TAB 0 Refills Prov: ORALIA MADRIGAL MD 04/07/21 Patient seen and examined by me. I have reviewed the medical student's charting and I agree with what is documented. I have independently performed a physical exam on this patient. Agree with musculoskeletal right upper quadrant abdominal pain/right chest pain. We will treat with tramadol and [id number] Tylenol. Patient cannot take NSAIDs due to a history of ulcers/GI bleeding. Patient's vital signs are stable. No clinical or objective findings to warrant further studies. Patient is given good return precautions. He verbalized understanding. All questions are sought and answered. (ORALIA MADRIGAL MD) MARIE ELIZABETH Apr 07, 2021 20:58 ORALIA MADRIGAL MD Apr 07, 2021 21:44
[2021-04-07] MEDS ORDERED: TRM50T PO (21:42)
[2021-04-07 21:56] VITALS: BP 129/93
== END 2021-04-07 21:52 | disposition home or self-care (01) ==
LOC: EDUNIT# 20:03 → ER 20:04
DX: R07.89 Other chest pain (principal); I10 Essential (primary) hypertension; E78.00 Pure hypercholesterolemia, unspecified; K21.9 Gastro-esophageal reflux disease without esophagitis; Z79.899 Other long term (current) drug therapy
CPT/HCPCS: 99283

== ENCOUNTER 2021-06-01 13:59 | Emergency (ER) | payer MEDICAID ==
[~2021-06-01] VITALS: Ht 177 cm; Wt 133.0 kg
[~2021-06-01 13:59] MED LIST changes: +CLIN-144 PO; -CLIN300C12 PO; +DICY20TA PO; -DICY20TA10 PO; +TRM50T PO
[2021-06-01 14:05] VITALS: BP 149/98
--- NOTE | 2021-06-01 14:28 | ED Lower Extremity ---
General Chief Complaint: Lower Extremity Stated Complaint: L ANKLE/FOOT INJ Nursing Triage Note: COMPLAINS OF SEVERE PAIN IN LEFT FOOT STARTING LAST NIGHT. NON INJURY. IS SCHEDULED TO HAVE SURGERY ON THIS FOOT. Source: patient Exam Limitations: no limitations History of Present Illness Date Seen by Provider: Jun 01, 2021 Time Seen by Provider: 14:27 Initial Comments Left ankle and foot pain after he moved yesterday and his foot stayed planted with all of his weight on it and he felt some popping sensation. Onset: yesterday Severity: moderate Pain/Injury Location: left foot, left ankle Method of Injury: fell Modifying Factors: Worse With Movement Allergies and Home Medications Allergies Coded Allergies: morphine (Verified Adverse Reaction, Mild, SWEATS AND VOMITING, 06/15/19) Patient Home Medication List Home Medication List Reviewed: Yes Acetaminophen (Tylenol) 325 Mg Capsule, 50 MG PO Q8H PRN for PAIN-MILD (1-4), (Reported) Entered as Reported by: ILYA VASQUEZ on 12/20/19 0832 Cetirizine HCl (Zyrtec) 10 Mg Tablet, 10 MG PO DAILY, (Reported) Entered as Reported by: ILYA VASQUEZ on 12/20/19 0832 Chlorhexidine Gluconate (Chlorhexidine Gluconate) 473 Ml Mouthwash, 30 ML MM BID Prescribed by: AZALIA CHANDLER on 06/08/20 0934 Clindamycin HCl (Clindamycin HCl) 300 Mg Capsule, 300 MG PO TID Prescribed by: ARTEMIO MONTES on 03/13/212008 Famotidine (Famotidine) 20 Mg Tablet, 20 MG PO HS, (Reported) Entered as Reported by: ILYA VASQUEZ on 12/20/19 0832 Gemfibrozil (Lopid) 600 Mg Tablet, 600 MG PO BID Prescribed by: XOCHILT PANCHAL on 12/20/19 0922 Multivits-Minerals/FA/Lycopene (Men's Daily Formula Capsule) 1 Each Capsule, 1 CAP PO DAILY, (Reported) Entered as Reported by: DESHAWN TOVAR on 10/25/17 1004 Pantoprazole Sodium (Pantoprazole Sodium) 40 Mg Tablet.dr, 40 MG PO BID, (Reported) Entered as Reported by: JOSEPH COLEMAN on 08/05/18 1558 Tramadol HCl (Tramadol HCl) 50 Mg Tablet, 50 MG PO Q6H PRN for PAIN Prescribed by: ORALIA MADRIGAL on 04/07/21 214 Ubiquinol (Ubiquinol) 100 Mg Capsule, 100 MG PO DAILY, (Reported) Entered as Reported by: ILYA VASQUEZ on 12/20/19 0832 [viscous lidocaine] 2% BOT, 15 ML TOP Q6H PRN for PAIN-BREAKTHROUGH Prescribed by: AZALIA CHANDLER on 06/08/20 0907 Review of Systems Constitutional: see HPI EENTM: see HPI Respiratory: no symptoms reported Cardiovascular: no symptoms reported Genitourinary: no symptoms reported Musculoskeletal: see HPI Skin: no symptoms reported Psychiatric/Neurological: No Symptoms Reported Past Septeql-Cyaaqv-Nuuukt Hx Patient Social History Smoking Status: Never a Smoker Smokeless Tobacco Frequency: Never a User Use of E-Cig and/or Vaping Daniel: Never a User Alcohol Use?: No Immunizations Up To Date Tetanus Booster (TDap): Unknown PED Vaccines UTD: Yes First/Initial COVID19 Vaccinat: October 2020 Second COVID19 Vaccination Deon: 12/09 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: [employer] Seasonal Allergies Seasonal Allergies: No Past Medical History Surgeries: Yes (PERIRECTAL ABSCESS; SPHINCTEROTOMY; EGD/COLONOSCOPY) Appendectomy, Orthopedic Respiratory: No Currently Using CPAP: No Currently Using BIPAP: No Cardiac: Yes Heart Murmur, High Cholesterol, Hypertension Neurological: No Reproductive Disorders: No Sexually Transmitted Disease: No HIV/AIDS: No Genitourinary: No Gastrointestinal: Yes (RECTAL BLEEDING, HX POLYPS; PERIRECTAL ABSCESS) Gastroesophageal Reflux, Chronic Diarrhea, Polyps, Hiatal Hernia Musculoskeletal: Yes Arthritis, Fractures Endocrine: No HEENT: No Loss of Vision: Denies Hearing Impairment: Denies Cancer: Yes (TOD CELL LEUKEMIA) Leukemia Did You Recieve Any Treatments: Yes What Type of Treatment Did You: Chemotherapy Psychosocial: No Integumentary: No Blood Disorders: No Adverse Reaction/Blood Tranf: No Family Medical History Cardiovascular disease 19 FATHER 19 MOTHER (bipass surgery) Diabetes mellitus 19 MOTHER Hypertension 19 FATHER Myocardial infarction 19 FATHER ( at age 46 from [place]) Heart Disease, Diabetes Physical Exam Vital Signs Vital Signs - First Documented 06/01/21 14:05 Temp 36.3 Pulse 114 Resp 16 B/P (MAP) 149/98 (115) Pulse Ox 97 O2 Delivery Room Air Capillary Refill : Less Than 3 Seconds Height, Weight, BMI Height: 5'9.00" Weight: 260lbs. 0.0oz. 117.342596pz; 42.00 BMI Method:Stated General Appearance: WD/WN, no apparent distress HEENT: PERRL/EOMI, normal ENT inspection Neck: non-tender, full range of motion Respiratory: no respiratory distress, no accessory muscle use Hips: bilateral hip non-tender, bilateral hip normal inspection, bilateral hip normal range of motion Legs: bilateral leg non-tender, bilateral leg normal inspection, bilateral leg normal range of motion Knees: bilateral knee non-tender, bilateral knee normal inspection, bilateral knee normal range of motion Ankles: left ankle pain, left ankle soft tissue tenderness, left ankle swelling Feet: left foot pain, left foot soft tissue tenderness, left foot swelling Neurologic/Psychiatric: alert, normal mood/affect, oriented x 3 Skin: normal color, warm/dry Progress/Results/Core Measures Results/Orders My Orders Orders - ARTEMIO MONTES APRN Foot, Left, 3 Views (06/01/21 14:26) Ankle, Left, 3 Views (06/01/21 14:26) Vital Signs/I&O 06/01/21 14:05 Temp 36.3 Pulse 114 Resp 16 B/P (MAP) 149/98 (115) Pulse Ox 97 O2 Delivery Room Air Blood Pressure Mean: 115 Departure Impression Primary Impression: Sprain and strain of ankle Disposition: 01 HOME, SELF-CARE Condition: Critical Departure-Patient Inst. Decision time for Depature: 15:02 Referrals: [facility] (PCP/Family) Primary Care Physician Patient Instructions: Ankle Sprain ED Add. Discharge Instructions: 1. Follow-up with your doctor later this week for further imaging if pain persists. Continue to use the crutches as long as you are having pain you should not put weight on your foot. Follow-up with your doctor later this week and return to ER for any worsening. All discharge instructions reviewed with patient and/or family. Voiced understanding. Work/School Note: Work Release Form Date Seen in the Emergency Department: Jun 01, 2021 Return to Work: Jun 04, 2021 ARTEMIO MONTES APRN Jun 01, 2021 14:28
--- NOTE | 2021-06-01 14:54 | Diagnostic Imaging Report ---
EXAMINATION: Left foot 3 views HISTORY: Ankle pain, ankle and foot injury COMPARISON: None available. FINDINGS: Alignment is normal. No fracture is seen. Joint spaces are normal. IMPRESSION: 1. No fracture. Dictated by: Dictated on workstation # [id number]
--- NOTE | 2021-06-01 14:55 | Diagnostic Imaging Report ---
EXAMINATION: Left ankle 3 views HISTORY: Ankle injury COMPARISON: None available. FINDINGS: There is a small heel spur. The alignment is normal. No fracture is seen. The mortise is intact. Talar dome is normal. Joint spaces are normal. IMPRESSION: 1. No fracture. Dictated by: Dictated on workstation # [id number]
== END 2021-06-01 15:10 | disposition home or self-care (01) ==
LOC: EDUNIT# 13:59 → ER 14:00
DX: S93.402A Sprain of unspecified ligament of left ankle, initial encounter (principal); I10 Essential (primary) hypertension; E78.00 Pure hypercholesterolemia, unspecified; K21.9 Gastro-esophageal reflux disease without esophagitis; Z79.899 Other long term (current) drug therapy; X50.0XXA Overexertion from strenuous movement or load, initial encounter
CPT/HCPCS: 73610; 73630

== ENCOUNTER → 2021-08-18 | Outpatient (CLI) | payer MEDICAID ==
[2021-08-18 09:06] LABS: ALBUMIN 4.5 GM/DL (3.2-4.5); POTASSIUM 4.2 MMOL/L (3.6-5.0)
[2021-08-18 09:07] LABS: CALCIUM 9.6 MG/DL (8.5-10.1)
[2021-08-18 09:09] LABS: TOTAL PROTEIN 7.5 GM/DL (6.4-8.2)
[2021-08-18 09:11] LABS: BILIRUBIN,TOTAL 0.8 MG/DL (0.1-1.0)
[2021-08-18 09:12] LABS: CREATININE SERUM 0.84 MG/DL (0.60-1.30)
== END ==
LOC: LAB 08:13
PROVIDERS: ATTEND Physician Assistant
DX: E78.2 Mixed hyperlipidemia (principal)
CPT/HCPCS: 36415; 80053; 80061

== ENCOUNTER 2021-09-10 19:11 | Emergency (ER) | payer MEDICAID ==
[~2021-09-10] VITALS: Ht 178 cm; Wt 140.0 kg
[2021-09-10] MEDS ORDERED: KETOROLAC 30 MG/ML VIAL IVP ONE (19:45)
--- NOTE | 2021-09-10 19:49 | ED Chest Pain ---
General Chief Complaint: Chest Wall Stated Complaint: CHEST PAIN, BACK PAIN Source: patient Exam Limitations: no limitations (ARTEMIO MONTES APRN) History of Present Illness Date Seen by Provider: Sep 10, 2021 Time Seen by Provider: 19:47 Initial Comments To ER with right sided lower parasternal chest pain worsened by moving or bending at the upper back since yesterday. Pain has been constant. No nausea no vomiting no diaphoresis no shortness of breath. Does not radiate down either arm. No injury to the chest. Timing/Duration: 24 hours, changing over time Severity/Quality: moderate Location: central Radiation: no radiation Activities at Onset: none Modifying Factors: worse with movement ASA po CLASSIFIER: No NTG SL CLASSIFIER: No Associated Symptoms: denies symptoms (ARTEMIO MONTES APRN) Allergies and Home Medications Allergies Coded Allergies: morphine (Verified Adverse Reaction, Mild, SWEATS AND VOMITING, 06/15/19) Patient Home Medication List Home Medication List Reviewed: Yes (ARTEMIO MONTES APRN) Acetaminophen (Tylenol) 325 Mg Capsule, 50 MG PO Q8H PRN for PAIN-MILD (1-4), (Reported) Entered as Reported by: ILYA VASQUEZ on 12/20/19 0832 Cetirizine HCl (Zyrtec) 10 Mg Tablet, 10 MG PO DAILY, (Reported) Entered as Reported by: ILYA VASQUEZ on 12/20/19 0832 Chlorhexidine Gluconate (Chlorhexidine Gluconate) 473 Ml Mouthwash, 30 ML MM BID Prescribed by: AZALIA CHANDLER on 06/08/20 0934 Clindamycin HCl (Clindamycin HCl) 300 Mg Capsule, 300 MG PO TID Prescribed by: ARTEMIO MONTES on 03/13/212008 Famotidine (Famotidine) 20 Mg Tablet, 20 MG PO HS, (Reported) Entered as Reported by: ILYA VASQUEZ on 12/20/19 0832 Gemfibrozil (Lopid) 600 Mg Tablet, 600 MG PO BID Prescribed by: XOCHILT PANCHAL on 12/20/19 0922 Multivits-Minerals/FA/Lycopene (Men's Daily Formula Capsule) 1 Each Capsule, 1 CAP PO DAILY, (Reported) Entered as Reported by: DESHAWN TOVAR on 10/25/17 1004 Pantoprazole Sodium (Pantoprazole Sodium) 40 Mg Tablet.dr, 40 MG PO BID, (Reported) Entered as Reported by: JOSEPH COLEMAN on 08/05/18 1558 Tramadol HCl (Tramadol HCl) 50 Mg Tablet, 50 MG PO Q6H PRN for PAIN Prescribed by: ORALIA MADRIGAL on 04/07/21 214 Ubiquinol (Ubiquinol) 100 Mg Capsule, 100 MG PO DAILY, (Reported) Entered as Reported by: ILYA VASQUEZ on 12/20/19 0832 [viscous lidocaine] 2% BOT, 15 ML TOP Q6H PRN for PAIN-BREAKTHROUGH Prescribed by: AZALIA CHANDLER on 06/08/20 0907 Review of Systems Review of Systems Constitutional: see HPI; No chills, No diaphoresis, No fever EENTM: No Symptoms Reported Respiratory: No Symptoms Reported; Denies Cough, Denies Shortness of Air Cardiovascular: See HPI, Chest Pain Gastrointestinal: See HPI; Denies Abdominal Pain, Denies Constipated, Denies Diarrhea, Denies Nausea Genitourinary: No Symptoms Reported Musculoskeletal: no symptoms reported Skin: no symptoms reported Psychiatric/Neurological: No Symptoms Reported Endocrine: No Symptoms Reported Hematologic/Lymphatic: No Symptoms Reported (ARTEMIO MONTES APRN) Past Gohxmld-Hkuplx-Hdsgus Hx Immunizations Up To Date Tetanus Booster (TDap): Unknown PED Vaccines UTD: Yes First/Initial COVID19 Vaccinat: October 2020 Second COVID19 Vaccination Deon: 12/09 (ARTEMIO MONTES APRN) Seasonal Allergies Seasonal Allergies: No (ARTEMIO MONTES APRN) Past Medical History Surgeries: Yes (PERIRECTAL ABSCESS; SPHINCTEROTOMY; EGD/COLONOSCOPY) Appendectomy, Orthopedic Respiratory: No Currently Using CPAP: No Currently Using BIPAP: No Cardiac: Yes Heart Murmur, High Cholesterol, Hypertension Neurological: No Reproductive Disorders: No Sexually Transmitted Disease: No HIV/AIDS: No Genitourinary: No Gastrointestinal: Yes (RECTAL BLEEDING, HX POLYPS; PERIRECTAL ABSCESS) Gastroesophageal Reflux, Chronic Diarrhea, Polyps, Hiatal Hernia Musculoskeletal: Yes Arthritis, Fractures Endocrine: No HEENT: No Loss of Vision: Denies Hearing Impairment: Denies Cancer: Yes (TOD CELL LEUKEMIA) Leukemia Did You Recieve Any Treatments: Yes What Type of Treatment Did You: Chemotherapy Psychosocial: No Integumentary: No Blood Disorders: No Adverse Reaction/Blood Tranf: No (ARTEMIO MONTES APRN) Family Medical History Cardiovascular disease 19 FATHER 19 MOTHER (bipass surgery) Diabetes mellitus 19 MOTHER Hypertension 19 FATHER Myocardial infarction 19 FATHER ( at age 46 from [place]) Heart Disease, Diabetes (ARTEMIO MONTES APRN) Physical Exam Vital Signs Vital Signs - First Documented 09/10/21 19:23 Temp 36.4 Pulse 90 Resp 17 B/P (MAP) 129/84 (99) (ALPHONSO REYNOLDS DO) Vital Signs Capillary Refill : (ARTEMIO MONTES APRN) Height, Weight, BMI Height: 5'9.00" Weight: 260lbs. 0.0oz. 117.710978md; 42.00 BMI Method:Stated General Appearance: No Apparent Distress, WD/WN, Obese Neck: Full Range of Motion, Normal Inspection Respiratory: Lungs Clear, No Accessory Muscle Use, No Respiratory Distress, Other (Right sternal border lower aspect is exquisitely tender to palpation. The right upper quadrant of the abdomen beneath the ribs and at the location of the liver is nontender to palpation) Cardiovascular: Regular Rate, Rhythm, Normal Peripheral Pulses Gastrointestinal: Normal Bowel Sounds, Non Tender, Soft Extremity: Normal Capillary Refill, Normal Inspection Neurologic/Psychiatric: Alert, Oriented x3 Skin: Normal Color, Warm/Dry (ARTEMIO MONTES APRN) Progress/Results/Core Measures Results/Orders Lab Results Laboratory Tests Test 09/10/21 19:30 Range/Units White Blood Count 7.8 4.3-11.0 10^3/uL Red Blood Count 5.29 4.30-5.52 10^6/uL Hemoglobin 16.2 13.3-17.7 g/dL Hematocrit 47 40-54 % Mean Corpuscular Volume 89 80-99 fL Mean Corpuscular Hemoglobin 31 25-34 pg Mean Corpuscular Hemoglobin Concent 35 32-36 g/dL Red Cell Distribution Width 11.7 10.0-14.5 % Platelet Count 190 130-400 10^3/uL Mean Platelet Volume 11.3 9.0-12.2 fL Immature Granulocyte % (Auto) 0 % Neutrophils (%) (Auto) 57 42-75 % Lymphocytes (%) (Auto) 33 12-44 % Monocytes (%) (Auto) 6 0-12 % Eosinophils (%) (Auto) 2 0-10 % Basophils (%) (Auto) 1 0-10 % Neutrophils # (Auto) 4.4 1.8-7.8 10^3/uL Lymphocytes # (Auto) 2.6 1.0-4.0 10^3/uL Monocytes # (Auto) 0.5 0.0-1.0 10^3/uL Eosinophils # (Auto) 0.2 0.0-0.3 10^3/uL Basophils # (Auto) 0.1 0.0-0.1 10^3/uL Immature Granulocyte # (Auto) 0.0 0.0-0.1 10^3/uL Prothrombin Time 12.7 12.2-14.7 SEC INR Comment 0.9 0.8-1.4 Activated Partial Thromboplast Time 29 24-35 SEC Sodium Level 141 135-145 MMOL/L Potassium Level 3.9 3.6-5.0 MMOL/L Chloride Level 107 98-107 MMOL/L Carbon Dioxide Level 24 21-32 MMOL/L Anion Gap 10 5-14 MMOL/L Blood Urea Nitrogen 15 7-18 MG/DL Creatinine 0.88 0.60-1.30 MG/DL Estimat Glomerular Filtration Rate 107 BUN/Creatinine Ratio 17 Glucose Level 95 70-105 MG/DL Calcium Level 9.4 8.5-10.1 MG/DL Corrected Calcium 8.5-10.1 MG/DL Magnesium Level 2.1 1.6-2.4 MG/DL Total Bilirubin 0.5 0.1-1.0 MG/DL Aspartate Amino Transf (AST/SGOT) 33 5-34 U/L Alanine Aminotransferase (ALT/SGPT) 59 H 0-55 U/L Alkaline Phosphatase 102 40-136 U/L Myoglobin 34.3 10.0-92.0 NG/ML Troponin I < 0.028 <0.028 NG/ML Total Protein 7.6 6.4-8.2 GM/DL Albumin 4.6 H 3.2-4.5 GM/DL Lipase 86 H 8-78 U/L (ALPHONSO REYNOLDS DO) Vital Signs/I&O 09/10/21 09/10/21 19:23 20:35 Temp 36.4 36.4 Pulse 90 84 Resp 17 17 B/P (MAP) 129/84 (99) 123/80 (ALPHONSO REYNOLDS DO) Departure Communication (Admissions) 26 his pain is better after Toradol. Given that he has had pain constant since last night a single troponin will be sufficient. (ARTEMIO MONTES APRN) Impression Primary Impression: Costochondral chest pain Disposition: HOME, SELF-CARE Condition: Stable Departure-Patient Inst. Decision time for Depature: 20:26 (ARTEMIO MONTES APRN) Referrals: [facility] [place] (PCP/Family) Primary Care Physician Patient Instructions: Costochondritis (DC) Add. Discharge Instructions: 1. Tylenol and ibuprofen for pain. Return to ER if any concerns or worsening symptoms.. Follow-up with your doctor next week. All discharge instructions reviewed with patient and/or family. Voiced understanding. ATTENDING PHYSICIAN NOTE: I WAS PHYSICALLY PRESENT ER PHYSICIAN, BUT I WAS NOT INVOLVED IN ANY DECISION MAKING OR ANY CARE OF THIS PATIENT. (ALPHONSO REYNOLDS DO) Images Torso/Trunk 1 - Tenderness (ARTEMIO MONTES APRN) ARTEMIO MONTES APRN Sep 10, 2021 19:49 ALPHONSO REYNOLDS DO Sep 11, 2021 18:21
[2021-09-10 19:50] LABS: BASOPHILS # (AUTO) 0.1 10^3/uL (0.0-0.1); BASOPHILS % (AUTO) 1 % (0-10); EOSINOPHILS # (AUTO) 0.2 10^3/uL (0.0-0.3); EOSINOPHILS % (AUTO) 2 % (0-10); HEMATOCRIT 47 % (40-54); HEMOGLOBIN 16.2 g/dL (13.3-17.7); LYMPHOCYTES # (AUTO) 2.6 10^3/uL (1.0-4.0); LYMPHOCYTES % (AUTO) 33 % (12-44); MEAN CORPUSCULAR HEMOGLOBIN 31 pg (25-34); MEAN CORPUSCULAR HGB CONC 35 g/dL (32-36); MEAN CORPUSCULAR VOLUME 89 fL (80-99); MEAN PLATELET VOLUME 11.3 fL (9.0-12.2); MONOCYTES # (AUTO) 0.5 10^3/uL (0.0-1.0); MONOCYTES % (AUTO) 6 % (0-12); NEUTROPHILS # (AUTO) 4.4 10^3/uL (1.8-7.8); NEUTROPHILS % (AUTO) 57 % (42-75); PLATELET COUNT 190 10^3/uL (130-400); WHITE BLOOD COUNT 7.8 10^3/uL (4.3-11.0)
[2021-09-10 20:08] LABS: INR 0.9 (0.8-1.4); PROTHROMBIN TIME PATIENT 12.7 SEC (12.2-14.7)
[2021-09-10 20:15] LABS: ALANINE AMINOTRANSFERASE 59 U/L (0-55); ALBUMIN 4.6 GM/DL (3.2-4.5); ALKALINE PHOSPHATASE 102 U/L (40-136); BILIRUBIN,TOTAL 0.5 MG/DL (0.1-1.0); BUN/CREATININE RATIO 17; CALCIUM 9.4 MG/DL (8.5-10.1); CARBON DIOXIDE 24 MMOL/L (21-32); CHLORIDE 107 MMOL/L (98-107); CREATININE SERUM 0.88 MG/DL (0.60-1.30); GFR ESTIMATED 107; GLUCOSE 95 MG/DL (70-105); LIPASE 86 U/L (8-78); MAGNESIUM 2.1 MG/DL (1.6-2.4); POTASSIUM 3.9 MMOL/L (3.6-5.0); SODIUM 141 MMOL/L (135-145); TOTAL PROTEIN 7.6 GM/DL (6.4-8.2)
--- NOTE | 2021-09-10 20:19 | Diagnostic Imaging Report ---
EXAMINATION: Chest 1 view. HISTORY: Chest pain. COMPARISON: 12/20/2019. FINDINGS: The lungs are clear without edema or pneumonia. No pleural effusion or pneumothorax. Heart size is normal. IMPRESSION: Clear lungs. Dictated by: Dictated on workstation # [id number]
[2021-09-10 20:35] VITALS: BP 123/80
== END 2021-09-10 20:37 | disposition home or self-care (01) ==
LOC: EDUNIT# 19:11 → ER 19:13
DX: R07.1 Chest pain on breathing (principal); E66.9 Obesity, unspecified; Z68.41 Body mass index [BMI] 40.0-44.9, adult
CPT/HCPCS: 36415; 71045; 80053; 83690; 83735; 83874; 84484; 85025; 85610; 85730; 93005; 93041; 96374

== ENCOUNTER 2021-10-02 20:09 | Emergency (ER) | payer MEDICAID ==
[~2021-10-02] VITALS: Ht 177.8 cm; Wt 131.5 kg
[2021-10-02 20:14] VITALS: BP 142/70
--- NOTE | 2021-10-02 20:24 | ED Lower Extremity ---
General Chief Complaint: Lower Extremity Stated Complaint: HURT L FOOT Source: patient Exam Limitations: no limitations History of Present Illness Date Seen by Provider: Oct 02, 2021 Time Seen by Provider: 20:22 Initial Comments Patient is a 46-year-old male who presents ED with left foot pain. Pain is located to the left posterior foot. Reports swelling and pain on palpation. States it feels warm and red. Denies of any specific trauma. History of fracture to his right foot and states today's pain feels very similar. He states he was walking at the time and felt a sharp pain around 1:00 this afternoon. Denies stepping on any form body. He was wearing boots. Reports increased swelling. Denies taking anything for pain. Denies fever, chills, nausea, vomiting, diarrhea, headache, dizziness. Allergies and Home Medications Allergies Coded Allergies: morphine (Verified Adverse Reaction, Mild, SWEATS AND VOMITING, 06/15/19) Patient Home Medication List Home Medication List Reviewed: Yes Acetaminophen (Tylenol) 325 Mg Capsule, 50 MG PO Q8H PRN for PAIN-MILD (1-4), (Reported) Entered as Reported by: ILYA VASQUEZ on 12/20/19 08 Cetirizine HCl (Zyrtec) 10 Mg Tablet, 10 MG PO DAILY, (Reported) Entered as Reported by: ILYA VASQUEZ on 12/20/19 0832 Chlorhexidine Gluconate (Chlorhexidine Gluconate) 473 Ml Mouthwash, 30 ML MM BID Prescribed by: AZALIA CHANDLER on 06/08/20 0934 Clindamycin HCl (Clindamycin HCl) 300 Mg Capsule, 300 MG PO TID Prescribed by: ARTEMIO MONTES on 03/13/212008 Famotidine (Famotidine) 20 Mg Tablet, 20 MG PO HS, (Reported) Entered as Reported by: ILYA VASQUEZ on 12/20/19 0832 Gemfibrozil (Lopid) 600 Mg Tablet, 600 MG PO BID Prescribed by: XOCHILT PANCHAL on 12/20/19 09 Hydrocodone/Acetaminophen (Hydrocodone-Acetamin 7.5-325) 1 Each Tablet, 1 EACH PO Q4H PRN for PAIN-MODERATE (5-7) Prescribed by: DARIAN NAIDU on 10/02/212054 Multivits-Minerals/FA/Lycopene (Men's Daily Formula Capsule) 1 Each Capsule, 1 CAP PO DAILY, (Reported) Entered as Reported by: DESHAWN TOVAR on 10/25/17 1004 Pantoprazole Sodium (Pantoprazole Sodium) 40 Mg Tablet.dr, 40 MG PO BID, (Rep orted) Entered as Reported by: JOSEPH COLEMAN on 08/05/18 1558 Tramadol HCl (Tramadol HCl) 50 Mg Tablet, 50 MG PO Q6H PRN for PAIN Prescribed by: ORALIA MADRIGAL on 04/07/21 2142 Tramadol HCl (Ultram) 50 Mg Tablet, 50 MG PO Q6H PRN for PAIN-BREAKTHROUGH Prescribed by: ANDIE ISAAC on 09/26/21 0620 Ubiquinol (Ubiquinol) 100 Mg Capsule, 100 MG PO DAILY, (Reported) Entered as Reported by: ILYA VASQUEZ on 12/20/19 0832 [viscous lidocaine] 2% BOT, 15 ML TOP Q6H PRN for PAIN-BREAKTHROUGH Prescribed by: AZALIA CHANDLER on 06/08/20 0907 Review of Systems Constitutional: No chills, No diaphoresis, No malaise, No weakness EENTM: No ear pain, No blurred vision, No double vision, No dental problems, No mouth pain, No mouth swelling Respiratory: No cough, No dyspnea on exertion Cardiovascular: No chest pain, No edema, No Hx of Intervention Gastrointestinal: No abdominal pain, No diarrhea, No nausea, No vomiting Genitourinary: No decreased output, No discharge Musculoskeletal: No back pain; joint pain, joint swelling Skin: No change in color, No change in hair/nails All Other Systems Reviewed Negative Unless Noted: Yes Past Iscieyy-Heolcc-Pyzeku Hx Patient Social History Tobacco Use?: No Substance use?: No Alcohol Use?: No Pt feels they are or have been: No Immunizations Up To Date Tetanus Booster (TDap): Unknown PED Vaccines UTD: Yes First/Initial COVID19 Vaccinat: 2020 Second COVID19 Vaccination Deon: 2020 Seasonal Allergies Seasonal Allergies: No Past Medical History Surgery/Hospitalization HX: right foot surgery, appy, htn, gerd Surgeries: Yes (PERIRECTAL ABSCESS; SPHINCTEROTOMY; EGD/COLONOSCOPY) Appendectomy, Orthopedic Respiratory: No Currently Using CPAP: No Currently Using BIPAP: No Cardiac: Yes Heart Murmur, High Cholesterol, Hypertension Neurological: No Reproductive Disorders: No Sexually Transmitted Disease: No HIV/AIDS: No Genitourinary: No Gastrointestinal: Yes (RECTAL BLEEDING, HX POLYPS; PERIRECTAL ABSCESS) Gastroesophageal Reflux, Chronic Diarrhea, Polyps, Hiatal Hernia Musculoskeletal: Yes Arthritis, Fractures Endocrine: No HEENT: No Loss of Vision: Denies Hearing Impairment: Denies Cancer: Yes (TOD CELL LEUKEMIA) Leukemia Did You Recieve Any Treatments: Yes What Type of Treatment Did You: Chemotherapy Psychosocial: No Integumentary: No Blood Disorders: No Adverse Reaction/Blood Tranf: No Family Medical History Cardiovascular disease 19 FATHER 19 MOTHER (bipass surgery) Diabetes mellitus 19 MOTHER Hypertension 19 FATHER Myocardial infarction 19 FATHER ( at age 46 from [place]) Heart Disease, Diabetes Physical Exam Vital Signs Vital Signs - First Documented 10/02/21 20:14 Temp 36.5 Pulse 99 Resp 18 B/P (MAP) 142/70 (94) Pulse Ox 97 O2 Delivery Room Air Capillary Refill : Height, Weight, BMI Height: 5'9.00" Weight: 260lbs. 0.0oz. 117.481384lb; 42.00 BMI Method:Stated General Appearance: WD/WN, no apparent distress HEENT: PERRL/EOMI, normal ENT inspection, TMs normal, pharynx normal Neck: non-tender, full range of motion, supple, normal inspection Cardiovascular: regular rate, rhythm, no edema, no gallop, no JVD Respiratory: chest non-tender, lungs clear, normal breath sounds, no respiratory distress, no accessory muscle use Gastrointestinal: normal bowel sounds, soft Back: normal inspection, no CVA tenderness Feet: right foot pain, right foot soft tissue tenderness (Tenderness to right posterior right foot near the Achilles tendon insertion), right foot swelling Neurologic/Tendon: normal sensation, normal motor functions 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 (10/02/21 20:45) Medications Given in ED Current Medications Medications Dose Ordered Sig/Pablo Route Start Time Stop Time Status Last Admin Dose Admin Acetaminophen/ Hydrocodone Bitart 1 ea ONCE ONCE PO 10/02/21 20:45 10/02/21 20:46 DC 10/02/21 21:04 1 EA Vital Signs/I&O 10/02/21 20:14 Temp 36.5 Pulse 99 Resp 18 B/P (MAP) 142/70 (94) Pulse Ox 97 O2 Delivery Room Air Departure Communication (PCP) Patient has a calcaneal osteophyte which is likely secondary to the pain. Does have pain to this location. Likely causing Achilles tendon irritation. No evidence Achilles tendon rupture. No significant bruising redness or warmth. Does have some mild swelling. Recommend pain medication. Ice for the next 3 to 4 days. Discussed rest to allow the area to heal. Provided range of motion exercises. Patient does have a orthopedic who he follows up with at [facility] who has managed similar type pain in his right foot. Discussed proper footwear. Orthopedic follow-up within the next 7 days Impression Primary Impression: Foot pain Disposition: 01 HOME, SELF-CARE Condition: Stable Departure-Patient Inst. Decision time for Depature: 20:53 Referrals: [facility] (PCP) Primary Care Physician [facility] (Family) Primary Care Physician Patient Instructions: Foot Sprain (DC) Add. Discharge Instructions: Recommend following up with orthopedic for further evaluation. Ice and pain medication. Recommend rest. Appropriate footwear All discharge instructions reviewed with patient and/or family. Voiced understanding. Scripts Hydrocodone/Acetaminophen (Hydrocodone-Acetamin 7.5-325) 1 Each Tablet 1 EACH PO Q4H PRN for PAIN-MODERATE (5-7), #14 TAB Prov: LIEN FRANCIS 10/02/21 Work/School Note: Work Release Form Date Seen in the Emergency Department: Oct 02, 2021 Return to Work: Oct 06, 2021 LIEN FRANCIS Oct 02, 2021 20:24
--- NOTE | 2021-10-02 20:43 | Diagnostic Imaging Report ---
INDICATION: Heel pain. COMPARISON: 06/01/2021. EXAMINATION: Three views of the left foot. FINDINGS: Calcaneal osteophytosis. There is no fracture or dislocation. No bony erosion or foreign body. IMPRESSION: Calcaneal osteophytosis. Dictated by: Dictated on workstation # [id number]
[2021-10-02] MEDS ORDERED: HYDROcodone/APAP 7.5 MG/325 MG (LORTAB, LORCET PLUS) TABLET PO ONE (20:45)
[2021-10-02] MEDS ORDERED: HYDR-3817 PO (20:54)
== END 2021-10-02 21:06 | disposition home or self-care (01) ==
LOC: EDUNIT# 20:09 → ER 20:11
DX: M79.672 Pain in left foot (principal)
CPT/HCPCS: 73630

== ENCOUNTER → 2021-10-15 | Outpatient (CLI) | payer MEDICAID ==
[~2021-10-15] MED LIST changes: +HYDR-3817 PO
== END ==
LOC: ORTHO 09:49
PROVIDERS: ATTEND Orthopaedic Surgery
DX: M70.50 Other bursitis of knee, unspecified knee (principal)
CPT/HCPCS: 99202

== ENCOUNTER → 2022-02-26 | Outpatient (CLI) | payer MEDICAID ==
[2022-02-26 08:15] LABS: ALBUMIN 4.4 GM/DL (3.2-4.5); BILIRUBIN,TOTAL 0.7 MG/DL (0.1-1.0); CALCIUM 9.5 MG/DL (8.5-10.1); CREATININE SERUM 0.8 MG/DL (0.60-1.30); POTASSIUM 4.3 MMOL/L (3.6-5.0); TOTAL PROTEIN 7.5 GM/DL (6.4-8.2)
== END ==
LOC: LAB 07:42
PROVIDERS: ATTEND Physician Assistant
DX: E78.2 Mixed hyperlipidemia (principal)
CPT/HCPCS: 36415; 80053; 80061

== ENCOUNTER 2022-03-13 20:14 | Emergency (ER) | payer MEDICAID ==
[~2022-03-13] VITALS: Ht 175.3 cm; Wt 145.6 kg
[2022-03-13 20:30] VITALS: BP 148/98
--- NOTE | 2022-03-13 20:41 | ED Integumentary General ---
General Stated Complaint: SORE ON ABD Source: patient Exam Limitations: no limitations History of Present Illness Date Seen by Provider: Mar 13, 2022 Time Seen by Provider: 20:20 Initial Comments Patient is a 47 yo M who presents to the ED with a area of redness and swelling to his abdomen. He states the area began as a small red area but has since gotten larger in size. 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 Pt denies any fever or constitutional symptoms. He has not taken anything for the symptoms. Timing/Duration: other (2 days ago) Severity: mild Associated Symptoms: No fever Allergies and Home Medications Allergies Coded Allergies: morphine (Verified Adverse Reaction, Mild, SWEATS AND VOMITING, 06/15/19) Patient Home Medication List Home Medication List Reviewed: Yes Acetaminophen (Tylenol) 325 Mg Capsule, 50 MG PO Q8H PRN for PAIN-MILD (1-4), (Reported) Entered as Reported by: ILYA VASQUEZ on 12/20/19 0832 Cetirizine HCl (Zyrtec) 10 Mg Tablet, 10 MG PO DAILY, (Reported) Entered as Reported by: ILYA VASQUEZ on 12/20/19 0832 Chlorhexidine Gluconate (Chlorhexidine Gluconate) 473 Ml Mouthwash, 30 ML MM BID Prescribed by: AZALIA CHANDLER on 06/08/20 0934 Clindamycin HCl (Clindamycin HCl) 300 Mg Capsule, 300 MG PO TID Prescribed by: ARTEMIO MONTES on 03/13/212008 Famotidine (Famotidine) 20 Mg Tablet, 20 MG PO HS, (Reported) Entered as Reported by: ILYA VASQUEZ on 12/20/19 0832 Gemfibrozil (Lopid) 600 Mg Tablet, 600 MG PO BID Prescribed by: XOCHILT PANCHAL on 12/20/19 0922 Hydrocodone/Acetaminophen (Hydrocodone-Acetamin 7.5-325) 1 Each Tablet, 1 EACH PO Q4H PRN for PAIN-MODERATE (5-7) Prescribed by: DARIAN NAIDU on 10/02/212054 Multivits-Minerals/FA/Lycopene (Men's Daily Formula Capsule) 1 Each Capsule, 1 CAP PO DAILY, (Reported) Entered as Reported by: DESHAWN TOVAR on 10/25/17 1004 Pantoprazole Sodium (Pantoprazole Sodium) 40 Mg Tablet.dr, 40 MG PO BID, (Rep orted) Entered as Reported by: JOSEPH COLEMAN on 08/05/18 1558 Tramadol HCl (Tramadol HCl) 50 Mg Tablet, 50 MG PO Q6H PRN for PAIN Prescribed by: ORALIA MADRIGAL on 04/07/21 2142 Tramadol HCl (Ultram) 50 Mg Tablet, 50 MG PO Q6H PRN for PAIN-BREAKTHROUGH Prescribed by: ANDIE ISAAC on 09/26/21 0620 Ubiquinol (Ubiquinol) 100 Mg Capsule, 100 MG PO DAILY, (Reported) Entered as Reported by: ILYA VASQUEZ on 12/20/19 0832 [viscous lidocaine] 2% BOT, 15 ML TOP Q6H PRN for PAIN-BREAKTHROUGH Prescribed by: AZALIA CHANDLER on 06/08/20 0907 Review of Systems Review of Systems Constitutional: no symptoms reported EENTM: no symptoms reported Respiratory: no symptoms reported Cardiovascular: no symptoms reported Gastrointestinal: no symptoms reported Genitourinary: no symptoms reported Musculoskeletal: no symptoms reported Skin: other (erythema) Psychiatric/Neurological: No Symptoms Reported Endocrine: No Symptoms Reported Past Qmhurek-Rkpviq-Mqkloz Hx Immunizations Up To Date Tetanus Booster (TDap): Unknown PED Vaccines UTD: Yes First/Initial COVID19 Vaccinat: 2020 Second COVID19 Vaccination Deon: 2020 Seasonal Allergies Seasonal Allergies: No Past Medical History Surgery/Hospitalization HX: right foot surgery, appy, htn, gerd Surgeries: Yes (PERIRECTAL ABSCESS; SPHINCTEROTOMY; EGD/COLONOSCOPY) Appendectomy, Orthopedic Respiratory: No Currently Using CPAP: No Currently Using BIPAP: No Cardiac: Yes Heart Murmur, High Cholesterol, Hypertension Neurological: No Reproductive Disorders: No Sexually Transmitted Disease: No HIV/AIDS: No Genitourinary: No Gastrointestinal: Yes (RECTAL BLEEDING, HX POLYPS; PERIRECTAL ABSCESS) Gastroesophageal Reflux, Chronic Diarrhea, Polyps, Hiatal Hernia Musculoskeletal: Yes Arthritis, Fractures Endocrine: No HEENT: No Loss of Vision: Denies Hearing Impairment: Denies Cancer: Yes (TOD CELL LEUKEMIA) Leukemia Did You Recieve Any Treatments: Yes What Type of Treatment Did You: Chemotherapy Psychosocial: No Integumentary: No Blood Disorders: No Adverse Reaction/Blood Tranf: No Family Medical History Cardiovascular disease 19 FATHER 19 MOTHER (bipass surgery) Diabetes mellitus 19 MOTHER Hypertension 19 FATHER Myocardial infarction 19 FATHER ( at age 46 from [place]) Heart Disease, Diabetes Physical Exam Vital Signs Capillary Refill : General Appearance: WD/WN, no apparent distress HEENT: PERRL/EOMI, normal ENT inspection, TMs normal, pharynx normal Neck: non-tender, full range of motion, supple, normal inspection Cardiovascular: regular rate, rhythm, no edema, no gallop, no JVD, no murmur Respiratory: chest non-tender, lungs clear, normal breath sounds, no respiratory distress, no accessory muscle use Gastrointestinal: normal bowel sounds, non tender, soft, no organomegaly, no pulsatile mass Back: normal inspection, no CVA tenderness, no vertebral tenderness Extremities: normal range of motion, non-tender, normal inspection, no pedal edema, no calf tenderness, normal capillary refill 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 Vital signs are reassuring. Area of concern is c/w cellulitis. No drainable collection of fluid appreciated on exam. Will treat with a course of Bactrim. First dose given in the ED. Will be d/c'd home with an rx for the same. Follow-up with PCP for recheck in 2-3 days. Return precautions for worsening symptoms discussed. Patient verbalized understanding. Departure Impression Primary Impression: Cellulitis of abdominal wall Disposition: HOME, SELF-CARE Condition: Stable Departure-Patient Inst. Decision time for Depature: 20:35 Referrals: [facility] (PCP/Family) Primary Care Physician Patient Instructions: Cellulitis (Skin Infection), Adult ED Scripts Sulfamethoxazole/Trimethoprim (Bactrim Ds Tablet) 800 Mg-160 Mg Tablet 1 EACH PO BID for 7 Days, #14 TAB Prov: MAGDA RIOJAS APRN 03/13/22 MAGDA RIOJAS APRN Mar 13, 2022 20:41
[2022-03-13] MEDS ORDERED: SULF-221 PO (20:42)
[2022-03-13] MEDS ORDERED: TRIM/SULFAMETH 160/800 (SEPTRA DS) TAB PO ONE (20:45)
== END 2022-03-13 20:47 | disposition home or self-care (01) ==
LOC: EDUNIT# 20:14 → ER 20:17
DX: L03.311 Cellulitis of abdominal wall (principal); Z86.14 Personal history of Methicillin resistant Staphylococcus aureus infection
CPT/HCPCS: 99283

== ENCOUNTER 2022-05-08 15:56 | Emergency (ER) | payer MEDICAID ==
[~2022-05-08] VITALS: Ht 177 cm; Wt 139.7 kg
[~2022-05-08 15:56] MED LIST changes: +SULF-221 PO
--- NOTE | 2022-05-08 16:26 | ED Abdominal Pain ---
General Chief Complaint: Abdominal/GI Problems Stated Complaint: ABD PAIN Nursing Triage Note: ARRIVED VIA AMB TO ROOM 05 WITH COMPLAINTS OF LEFT UPPER ABD PAIN THAT STARTED YESTERDAY THAT COMES AND GOES. PT HAS A HX OF TOD CELL LEUKEMIA AND IS IN REMISSION. Source of Information: Patient Exam Limitations: No Limitations History of Present Illness Date Seen by Provider: May 08, 2022 Time Seen by Provider: 16:10 Initial Comments Patient is a 47-year-old male who presents to the emergency department today with a chief complaint of epigastric and right upper quadrant abdominal pain. Onset of symptoms about a week and a half ago. Patient had a couple of days of discomfort associated with some watery diarrhea, nonblack nonbloody. He states symptoms resolved until yesterday when they recurred again. He states the pain is "coming and going". Nothing seems to precipitate the pain. No associated symptoms of nausea or vomiting. No diarrhea today with the pain. He is currently asymptomatic. No urinary complaints. No fevers or chills. No URI symptoms. He has had previous hairy cell leukemia 4 years ago. He does have a history of hypertension, nondiabetic. Non-smoker. Pain does not radiate into his chest. He had a heart catheterization a couple of years ago that showed clean coronary arteries. He has had previous gallbladder ultrasound with 2 HIDA scans neither of which showed acute pathology requiring cholecystectomy. He did have a cheeseburger this afternoon but did not associate that with pain today. All other review of systems reviewed and negative except as stated Timing/Duration: 1-2 Days Severity/Quality: Moderate, Sharp Location: RUQ, Epigastric Radiation: No Radiation Activities at Onset: None Associated Symptoms: Denies Symptoms Allergies and Home Medications Allergies Coded Allergies: morphine (Verified Adverse Reaction, Mild, SWEATS AND VOMITING, 06/15/19) Patient Home Medication List Home Medication List Reviewed: Yes Discontinued Medications Acetaminophen (Tylenol) 325 Mg Capsule, 50 MG PO Q8H PRN for PAIN-MILD (1-4), (Reported) Discontinued Reason: No Longer Taking Entered as Reported by: ILYA VASQUEZ on 12/20/19831 Last Action: Discontinued Cetirizine HCl (Zyrtec) 10 Mg Tablet, 10 MG PO DAILY, (Reported) Discontinued Reason: No Longer Taking Entered as Reported by: ILYA VASQUEZ on 12/20/19831 Last Action: Discontinued Chlorhexidine Gluconate (Chlorhexidine Gluconate) 473 Ml Mouthwash, 30 ML MM BID Discontinued Reason: No Longer Taking Prescribed by: AZALIA CHANDLER on 06/08/20 0934 Last Action: Discontinued Clindamycin HCl (Clindamycin HCl) 300 Mg Capsule, 300 MG PO TID Discontinued Reason: No Longer Taking Prescribed by: ARTEMIO MONTES on 03/13/212008 Last Action: Discontinued Famotidine (Famotidine) 20 Mg Tablet, 20 MG PO HS, (Reported) Discontinued Reason: No Longer Taking Entered as Reported by: ILYA VASQUEZ on 12/20/1932 Last Action: Discontinued Gemfibrozil (Lopid) 600 Mg Tablet, 600 MG PO BID Discontinued Reason: No Longer Taking Prescribed by: XOCHILT PANCHAL on 12/20/19921 Last Action: Discontinued Hydrocodone/Acetaminophen (Hydrocodone-Acetamin 7.5-325) 1 Each Tablet, 1 EACH PO Q4H PRN for PAIN-MODERATE (5-7) Discontinued Reason: No Longer Taking Prescribed by: DARIAN NAIDU on 10/02/212054 Last Action: Discontinued Multivits-Minerals/FA/Lycopene (Men's Daily Formula Capsule) 1 Each Capsule, 1 CAP PO DAILY, (Reported) Discontinued Reason: No Longer Taking Entered as Reported by: DESHAWN TOVAR on 10/25/17 1004 Last Action: Discontinued Pantoprazole Sodium (Pantoprazole Sodium) 40 Mg Tablet.dr, 40 MG PO BID, (Reported) Discontinued Reason: No Longer Taking Entered as Reported by: JOSEPH COLEMAN on 08/05/18 1558 Last Action: Discontinued Sulfamethoxazole/Trimethoprim (Bactrim Ds Tablet) 800 Mg-160 Mg Tablet, 1 EACH PO BID Discontinued Reason: No Longer Taking Prescribed by: Oscar Sepulveda on 03/13/222041 Last Action: Discontinued Tramadol HCl (Tramadol HCl) 50 Mg Tablet, 50 MG PO Q6H PRN for PAIN Discontinued Reason: No Longer Taking Prescribed by: ORALIA MADRIGAL on 04/07/212141 Last Action: Discontinued Tramadol HCl (Ultram) 50 Mg Tablet, 50 MG PO Q6H PRN for PAIN-BREAKTHROUGH Discontinued Reason: No Longer Taking Prescribed by: ANDIE ISAAC on 09/26/21 0620 Last Action: Discontinued Ubiquinol (Ubiquinol) 100 Mg Capsule, 100 MG PO DAILY, (Reported) Discontinued Reason: No Longer Taking Entered as Reported by: ILYA VASQUEZ on 12/20/19 0832 Last Action: Discontinued [viscous lidocaine] 2% BOT, 15 ML TOP Q6H PRN for PAIN-BREAKTHROUGH Discontinued Reason: No Longer Taking Prescribed by: AZALIA CHANDLER on 06/08/20 0907 Last Action: Discontinued Review of Systems Review of Systems Constitutional: see HPI EENTM: No Symptoms Reported Respiratory: No Symptoms Reported Cardiovascular: No Symptoms Reported Gastrointestinal: Abdominal Pain, Diarrhea Genitourinary: No Symptoms Reported Musculoskeletal: no symptoms reported Skin: no symptoms reported Psychiatric/Neurological: No Symptoms Reported Endocrine: No Symptoms Reported All Other Systems Reviewed Negative Unless Noted: Yes Past Fpkrsdv-Rcugjs-Jkknsc Hx Patient Social History Tobacco Use?: No Substance use?: No Alcohol Use?: No Immunizations Up To Date Tetanus Booster (TDap): Unknown PED Vaccines UTD: Yes First/Initial COVID19 Vaccinat: 2019 Second COVID19 Vaccination Deon: 2020 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: [employer] Seasonal Allergies Seasonal Allergies: No Past Medical History Surgery/Hospitalization HX: right foot surgery, appy, htn, gerd Surgeries: Yes (PERIRECTAL ABSCESS; SPHINCTEROTOMY; EGD/COLONOSCOPY) Appendectomy, Orthopedic Respiratory: No Currently Using CPAP: No Currently Using BIPAP: No Cardiac: Yes Heart Murmur, High Cholesterol, Hypertension Neurological: No Reproductive Disorders: No Sexually Transmitted Disease: No HIV/AIDS: No Genitourinary: No Gastrointestinal: Yes (RECTAL BLEEDING, HX POLYPS; PERIRECTAL ABSCESS) Gastroesophageal Reflux, Chronic Diarrhea, Polyps, Hiatal Hernia Musculoskeletal: Yes Arthritis, Fractures Endocrine: No HEENT: No Loss of Vision: Denies Hearing Impairment: Denies Cancer: Yes (TOD CELL LEUKEMIA) Leukemia Did You Recieve Any Treatments: Yes What Type of Treatment Did You: Chemotherapy Psychosocial: No Integumentary: No Blood Disorders: No Adverse Reaction/Blood Tranf: No Family Medical History Cardiovascular disease 19 FATHER 19 MOTHER (bipass surgery) Diabetes mellitus 19 MOTHER Hypertension 19 FATHER Myocardial infarction 19 FATHER ( at age 46 from [place]) Heart Disease, Diabetes Physical Exam Vital Signs Vital Signs - First Documented 05/08/22 16:00 Temp 35.9 Pulse 98 Resp 16 B/P (MAP) 127/84 (98) Pulse Ox 98 O2 Delivery Room Air Capillary Refill : Height/Weight/BMI Height: 5'9.00" Weight: 260lbs. 0.0oz. [id number]; 44.00 BMI Method:Stated General Appearance: WD/WN, no apparent distress, obese HEENT: normal ENT inspection Respiratory: lungs clear, normal breath sounds, no respiratory distress, no accessory muscle use Cardiovascular: regular rate, rhythm Gastrointestinal: normal bowel sounds, soft, tenderness (mild epigastric tenderness) Extremities: normal range of motion, normal inspection Neurologic/Psychiatric: alert, normal mood/affect, oriented x 3 Skin: normal color, warm/dry, rash (palpable erythematous papular rash to the UE bilaterally; hive-like) Progress/Results/Core Measures Results/Orders Lab Results Laboratory Tests Test 05/08/22 16:29 Range/Units White Blood Count 7.6 4.3-11.0 10^3/uL Red Blood Count 5.39 4.30-5.52 10^6/uL Hemoglobin 16.7 13.3-17.7 g/dL Hematocrit 47 40-54 % Mean Corpuscular Volume 87 80-99 fL Mean Corpuscular Hemoglobin 31 25-34 pg Mean Corpuscular Hemoglobin Concent 36 32-36 g/dL Red Cell Distribution Width 11.7 10.0-14.5 % Platelet Count 210 130-400 10^3/uL Mean Platelet Volume 10.6 9.0-12.2 fL Immature Granulocyte % (Auto) 0 % Neutrophils (%) (Auto) 58 42-75 % Lymphocytes (%) (Auto) 33 12-44 % Monocytes (%) (Auto) 6 0-12 % Eosinophils (%) (Auto) 2 0-10 % Basophils (%) (Auto) 1 0-10 % Neutrophils # (Auto) 4.4 1.8-7.8 10^3/uL Lymphocytes # (Auto) 2.5 1.0-4.0 10^3/uL Monocytes # (Auto) 0.5 0.0-1.0 10^3/uL Eosinophils # (Auto) 0.1 0.0-0.3 10^3/uL Basophils # (Auto) 0.1 0.0-0.1 10^3/uL Immature Granulocyte # (Auto) 0.0 0.0-0.1 10^3/uL Sodium Level 140 135-145 MMOL/L Potassium Level 3.9 3.6-5.0 MMOL/L Chloride Level 105 98-107 MMOL/L Carbon Dioxide Level 24 21-32 MMOL/L Anion Gap 11 5-14 MMOL/L Blood Urea Nitrogen 12 7-18 MG/DL Creatinine 0.82 0.60-1.30 MG/DL Estimat Glomerular Filtration Rate 109 BUN/Creatinine Ratio 15 Glucose Level 108 H 70-105 MG/DL Calcium Level 9.6 8.5-10.1 MG/DL Corrected Calcium 9.2 8.5-10.1 MG/DL Total Bilirubin 0.6 0.1-1.0 MG/DL Aspartate Amino Transf (AST/SGOT) 35 H 5-34 U/L Alanine Aminotransferase (ALT/SGPT) 68 H 0-55 U/L Alkaline Phosphatase 113 40-136 U/L Total Protein 7.6 6.4-8.2 GM/DL Albumin 4.5 3.2-4.5 GM/DL Lipase 52 8-78 U/L My Orders Orders - ORAILA MADRIGAL MD Ed Iv/Invasive Line Start (05/08/22 16:20) Cbc With Automated Diff (05/08/22 16:20) Comprehensive Metabolic Panel (05/08/22 16:20) Lipase (05/08/22 16:20) Vital Signs/I&O 05/08/22 16:00 Temp 35.9 Pulse 98 Resp 16 B/P (MAP) 127/84 (98) Pulse Ox 98 O2 Delivery Room Air Blood Pressure Mean: 98 Progress Progress Note : Time: 17:49 Progress Note Patient seen and evaluated 47-year-old with epigastric and left upper quadrant abdominal pain. Evaluation today includes a physical exam, CBC, chemistry and lipase. Patient describes the pain as "spasms". He has had significant gallbladder work-up in the past. Will follow with Dr. Ludwig. Abdominal exam is benign. Vital signs are stable. He is afebrile, he is not vomiting. No clinical or objective findings to warrant emergent ultrasound or CAT scan. He is having bowel movements his belly is soft. Will give the patient dicyclomine here in the ED and a prescription for home. Return precautions discussed including fever, vomiting worsening pain. He verbalized understanding. All questions are sought and answered. Departure Impression Primary Impression: Abdominal pain Qualified Codes: R10.13 - Epigastric pain Disposition: 01 HOME, SELF-CARE Condition: Stable Departure-Patient Inst. Decision time for Depature: 17:50 Referrals: [facility] [place] Primary Care Physician MARIAJOSE LUDWIG DO Patient Instructions: Gallbladder Diet Add. Discharge Instructions: Try and avoid fatty foods for the next couple of days if possible. Take dicyclomine 1 tablet approximately 30 minutes before you eat. This should help with abdominal cramping. If you develop a fever or vomiting with the pain please come back to the emergency room for reevaluation. Please follow-up with your primary care physician as well as Dr. Ludwig. Scripts Dicyclomine HCl (Dicyclomine HCl) 20 Mg Tablet 20 MG PO QIDACHS PRN for abdominal cramping, #60 TAB Prov: ORALIA MADRIGAL MD 05/08/22 Copy Copies To 1: MARIPOSA BRENNER DO Copies To 2: MARIAJOSE LUDWIG KATHRYN M MD May 08, 2022 16:26
[2022-05-08 16:35] LABS: BASOPHILS # (AUTO) 0.1 10^3/uL (0.0-0.1); BASOPHILS % (AUTO) 1 % (0-10); EOSINOPHILS # (AUTO) 0.1 10^3/uL (0.0-0.3); EOSINOPHILS % (AUTO) 2 % (0-10); HEMATOCRIT 47 % (40-54); HEMOGLOBIN 16.7 g/dL (13.3-17.7); LYMPHOCYTES # (AUTO) 2.5 10^3/uL (1.0-4.0); LYMPHOCYTES % (AUTO) 33 % (12-44); MEAN CORPUSCULAR HEMOGLOBIN 31 pg (25-34); MEAN CORPUSCULAR HGB CONC 36 g/dL (32-36); MEAN CORPUSCULAR VOLUME 87 fL (80-99); MEAN PLATELET VOLUME 10.6 fL (9.0-12.2); MONOCYTES # (AUTO) 0.5 10^3/uL (0.0-1.0); MONOCYTES % (AUTO) 6 % (0-12); NEUTROPHILS # (AUTO) 4.4 10^3/uL (1.8-7.8); NEUTROPHILS % (AUTO) 58 % (42-75); PLATELET COUNT 210 10^3/uL (130-400); WHITE BLOOD COUNT 7.6 10^3/uL (4.3-11.0)
[2022-05-08 16:44] LABS: ALBUMIN 4.5 GM/DL (3.2-4.5); POTASSIUM 3.9 MMOL/L (3.6-5.0)
[2022-05-08 16:45] LABS: CALCIUM 9.6 MG/DL (8.5-10.1)
[2022-05-08 16:46] LABS: TOTAL PROTEIN 7.6 GM/DL (6.4-8.2)
[2022-05-08 16:48] LABS: BILIRUBIN,TOTAL 0.6 MG/DL (0.1-1.0)
[2022-05-08 16:50] LABS: CREATININE SERUM 0.82 MG/DL (0.60-1.30)
[2022-05-08] MEDS ORDERED: DICY20TA PO (17:52)
[2022-05-08] MEDS ORDERED: DICYCLOMINE 10 MG (BENTYL) CAP PO STA (17:52)
[2022-05-08 18:04] VITALS: BP 116/81
== END 2022-05-08 18:04 | disposition home or self-care (01) ==
LOC: EDUNIT# 15:56 → ER 15:57
DX: R10.13 Epigastric pain (principal); Z87.19 Personal history of other diseases of the digestive system; Z90.49 Acquired absence of other specified parts of digestive tract
CPT/HCPCS: 36415; 80053; 83690; 85025; 99283

== ENCOUNTER → 2022-06-01 | Outpatient (CLI) | payer MEDICAID ==
--- NOTE | 2022-06-01 11:24 | Diagnostic Imaging Report ---
PROCEDURE: US Gallbladder. TECHNIQUE: Multiple real-time grayscale images were obtained over the right upper quadrant in various projections. INDICATION: Right upper quadrant pain. Liver is enlarged at 23 cm. Portal vein is patent and shows normal direction of flow. Liver shows diffuse increased echogenicity consistent with hepatic steatosis. No liver mass is identified. Gallbladder is without stones or sludge. There is no wall thickening or biliary ductal dilatation. Pancreas is obscured. Visualized aorta and IVC are unremarkable. Right kidney is without calculi or hydronephrosis. There is no ascites. IMPRESSION: 1. Hepatomegaly and hepatic steatosis. 2. No evidence of cholelithiasis or acute cholecystitis. Dictated by: Dictated on workstation # [id number]
== END ==
LOC: RAD 08:45
PROVIDERS: ATTEND Surgery
DX: K76.0 Fatty (change of) liver, not elsewhere classified (principal)
CPT/HCPCS: 76705

== ENCOUNTER → 2022-06-08 | Outpatient (CLI) | payer MEDICAID ==
--- NOTE | 2022-06-08 12:17 | Diagnostic Imaging Report ---
INDICATION: Right upper quadrant pain. Patient was administered 5.2 mCi technetium 99m Choletec intravenously and imaging over the abdomen was performed. At 1 hour patient ingested 8 ounces ensure and gallbladder ejection fraction was calculated. Patient denied discomfort during the study. There is homogeneous uptake of activity by the liver with prompt excretion of activity into the common duct and gallbladder. There is normal passage of activity into the small bowel. Gallbladder ejection fraction is normal at 68%. IMPRESSION: Normal HIDA scan and gallbladder ejection fraction. Dictated by: Dictated on workstation # [id number]
== END ==
LOC: CARD 09:35
PROVIDERS: ATTEND Surgery
DX: R10.11 Right upper quadrant pain (principal)
CPT/HCPCS: 78227

== ENCOUNTER → 2022-06-17 | Outpatient (CLI) | payer MEDICAID ==
[~2022-06-17] MED LIST changes: +CATHETER FLUSH 10 ML SYR IV PRN; +HOLD METFORMIN - RECEIVED CONTRAST 20 ML VIAL IV SCH; +IOHEXOL 350 MG/ML 100 ML (OMNIPAQUE 350) VIAL IV ONE; +NS 100 ML (IVPB) BAG IV ONE
--- NOTE | 2022-06-17 12:16 | Diagnostic Imaging Report ---
PROCEDURE: CT abdomen and pelvis with contrast. TECHNIQUE: Multiple contiguous axial images were obtained through the abdomen and pelvis after administration of intravenous contrast. Auto Exposure Controls were utilized during the CT exam to meet ALARA standards for radiation dose reduction. All CT scans use one or more of the following dose optimizing techniques: automated exposure control, MA and/or KvP adjustment based on patient size and exam type or iterative reconstruction. INDICATION: Right upper quadrant abdominal pain. COMPARISON: 06/13/2018 There is low-density throughout the liver indicating steatosis. Right hepatic lobe length is 23 cm with splenic length of 17 cm. These findings are stable compared to previous exam. No gallbladder or pancreatic lesion is identified. Adrenal glands and kidneys are also stable and unremarkable. There is no evidence of new abnormality within the abdomen or pelvis. There is no free fluid or organized fluid collection and no focal inflammation is seen. There is no pathologically enlarged adenopathy. Unopacified bladder is unremarkable. IMPRESSION: No significant change in hepatic steatosis and hepatosplenomegaly. No evidence of acute abnormality. Dictated by: Dictated on workstation # [id number]
== END ==
LOC: RAD 11:45
PROVIDERS: ATTEND Surgery
DX: K76.0 Fatty (change of) liver, not elsewhere classified (principal)
CPT/HCPCS: 74177

== ENCOUNTER 2022-09-13 18:42 | Emergency (ER) | payer MEDICAID ==
[~2022-09-13 18:42] MED LIST changes: -CATHETER FLUSH 10 ML SYR IV PRN; -HOLD METFORMIN - RECEIVED CONTRAST 20 ML VIAL IV SCH; -IOHEXOL 350 MG/ML 100 ML (OMNIPAQUE 350) VIAL IV ONE; -NS 100 ML (IVPB) BAG IV ONE
--- NOTE | 2022-09-13 19:12 | ED Integumentary General ---
General Chief Complaint: Skin/Wound Problems Stated Complaint: SKIN INFECTION, WAIST Source: patient Exam Limitations: no limitations History of Present Illness Date Seen by Provider: Sep 13, 2022 Time Seen by Provider: 18:58 Initial Comments 47-year-old male presents to the ED with complaint of infection to suprapubic region. He reports that he first noticed the area on Wednesday. 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 He was seen on Wednesday at the [facility] walk-in clinic and prescribed Bactrim and mupirocin ointment. Reports that the area has enlarged. Reports on Wednesday it was about the size of a dime, now it is approximately 3 to 4 inches in diameter. Denies fevers, chest pain, shortness of air, abdominal pain, nausea, vomiting. Reports compliance with the antibiotic. Past medical history includes hypertension and high cholesterol. Allergies and Home Medications Allergies Coded Allergies: morphine (Verified Adverse Reaction, Mild, SWEATS AND VOMITING, 06/15/19) Patient Home Medication List Home Medication List Reviewed: Yes Dicyclomine HCl (Dicyclomine HCl) 20 Mg Tablet, 20 MG PO QIDACHS PRN for abdominal cramping Prescribed by: ORALIA MADRIGAL on 05/08/22 175 Review of Systems Review of Systems Constitutional: see HPI Past Ywpujut-Xpzokk-Sqmnyq Hx Patient Social History Tobacco Use?: No Substance use?: No Alcohol Use?: No Pt feels they are or have been: No Immunizations Up To Date Tetanus Booster (TDap): Unknown PED Vaccines UTD: Yes Influenza Vaccine Up-to-Date: Yes; Up-to-Date First/Initial COVID19 Vaccinat: Mar Second COVID19 Vaccination Deon: Mar Third COVID19 Vaccination Date: Mar Seasonal Allergies Seasonal Allergies: No Past Medical History Surgery/Hospitalization HX: right foot surgery, appy, htn, gerd Surgeries: Yes (PERIRECTAL ABSCESS; SPHINCTEROTOMY; EGD/COLONOSCOPY) Appendectomy, Orthopedic Respiratory: No Currently Using CPAP: No Currently Using BIPAP: No Cardiac: Yes Heart Murmur, High Cholesterol, Hypertension Neurological: No Reproductive Disorders: No Sexually Transmitted Disease: No HIV/AIDS: No Genitourinary: No Gastrointestinal: Yes (RECTAL BLEEDING, HX POLYPS; PERIRECTAL ABSCESS) Gastroesophageal Reflux, Chronic Diarrhea, Polyps, Hiatal Hernia Musculoskeletal: Yes Arthritis, Fractures Endocrine: No HEENT: No Loss of Vision: Denies Hearing Impairment: Denies Cancer: Yes (TOD CELL LEUKEMIA) Leukemia Did You Recieve Any Treatments: Yes What Type of Treatment Did You: Chemotherapy Psychosocial: No Integumentary: No Blood Disorders: No Adverse Reaction/Blood Tranf: No Family Medical History Cardiovascular disease 19 FATHER 19 MOTHER (bipass surgery) Diabetes mellitus 19 MOTHER Hypertension 19 FATHER Myocardial infarction 19 FATHER ( at age 46 from [place]) Heart Disease, Diabetes Physical Exam Vital Signs Vital Signs - First Documented 09/13/22 18:51 Temp 36.8 Pulse 112 Resp 24 B/P (MAP) 135/80 (98) Pulse Ox 95 O2 Delivery Room Air Capillary Refill : General Appearance: WD/WN, no apparent distress Neck: supple, normal inspection Extremities: normal range of motion, normal inspection Neurologic/Psychiatric: alert, normal mood/affect Skin: normal color, warm/dry Skin Problem Location: other (Suprapubic region) Skin Problem Character: abscess (3 to 4 inch diameter region of induration, small 1 cm area of fluctuation) Progress/Results/Core Measures Results/Orders Lab Results Laboratory Tests Test 09/13/22 19:13 Range/Units White Blood Count 9.5 4.3-11.0 10^3/uL Red Blood Count 4.94 4.30-5.52 10^6/uL Hemoglobin 15.5 13.3-17.7 g/dL Hematocrit 44 40-54 % Mean Corpuscular Volume 89 80-99 fL Mean Corpuscular Hemoglobin 31 25-34 pg Mean Corpuscular Hemoglobin Concent 35 32-36 g/dL Red Cell Distribution Width 11.9 10.0-14.5 % Platelet Count 188 130-400 10^3/uL Mean Platelet Volume 10.8 9.0-12.2 fL Immature Granulocyte % (Auto) 0 % Neutrophils (%) (Auto) 67 42-75 % Lymphocytes (%) (Auto) 25 12-44 % Monocytes (%) (Auto) 6 0-12 % Eosinophils (%) (Auto) 1 0-10 % Basophils (%) (Auto) 0 0-10 % Neutrophils # (Auto) 6.3 1.8-7.8 10^3/uL Lymphocytes # (Auto) 2.4 1.0-4.0 10^3/uL Monocytes # (Auto) 0.6 0.0-1.0 10^3/uL Eosinophils # (Auto) 0.1 0.0-0.3 10^3/uL Basophils # (Auto) 0.0 0.0-0.1 10^3/uL Immature Granulocyte # (Auto) 0.0 0.0-0.1 10^3/uL My Orders Orders - OCTAVIA MCGRAW APRN Cbc With Automated Diff (09/13/22 19:13) Comprehensive Metabolic Panel (09/13/22 19:13) Lactic Acid Analyzer (09/13/22 19:13) Lidocaine 1% Inj 10 Ml (Xylocaine 1% Inj (09/13/22 19:30) Wound Culture (09/13/22 19:21) Vital Signs/I&O 09/13/22 18:51 Temp 36.8 Pulse 112 Resp 24 B/P (MAP) 135/80 (98) Pulse Ox 95 O2 Delivery Room Air Progress Progress Note : Time: 19:10 Progress Note Patient seen and evaluated, resting comfortably in bed, no acute distress. Based on exam and symptoms, concerned for worsening abscess. Will obtain CBC, CMP, lactic due to slightly elevated heart rate. Will harsh abscess and collect wound culture. 1937 this provider and nurse to room to perform I&D of abscess. Patient refused. Patient wants to be sedated for I&D. Abscess is small, patient does not need to be sedated or taken to surgery for this abscess. Patient is going to sign out against medical advice. Patient given the risk of leaving against medical advice and the benefits of staying. Patient instructed to continue taking his Bactrim as prescribed. Only the CBC has resulted so far, no elevated WBC. Patient provided discharge instructions and return precautions. Departure Impression Primary Impression: Abscess Disposition: AGAINST MEDICAL ADVICE Condition: Stable Departure-Patient Inst. [facility]: [facility] [place] Primary Care Physician Patient Instructions: Skin Abscess Add. Discharge Instructions: You are signing out AGAINST MEDICAL ADVICE. I recommended incision and drainage of the abscess to get rid of the infection, and you have refused. Continue taking your Bactrim as prescribed. Return for increased redness, fever, or any other new, concerning, worsening symptoms. All discharge instructions reviewed with patient and/or family. Voiced understanding. OCTAVIA MCGRAW APRN Sep 13, 2022 19:12
[2022-09-13 19:25] LABS: BASOPHILS % (AUTO) 0 % (0-10); EOSINOPHILS # (AUTO) 0.1 10^3/uL (0.0-0.3); EOSINOPHILS % (AUTO) 1 % (0-10); HEMATOCRIT 44 % (40-54); HEMOGLOBIN 15.5 g/dL (13.3-17.7); LYMPHOCYTES # (AUTO) 2.4 10^3/uL (1.0-4.0); LYMPHOCYTES % (AUTO) 25 % (12-44); MEAN CORPUSCULAR HEMOGLOBIN 31 pg (25-34); MEAN CORPUSCULAR HGB CONC 35 g/dL (32-36); MEAN CORPUSCULAR VOLUME 89 fL (80-99); MEAN PLATELET VOLUME 10.8 fL (9.0-12.2); MONOCYTES # (AUTO) 0.6 10^3/uL (0.0-1.0); MONOCYTES % (AUTO) 6 % (0-12); NEUTROPHILS # (AUTO) 6.3 10^3/uL (1.8-7.8); NEUTROPHILS % (AUTO) 67 % (42-75); PLATELET COUNT 188 10^3/uL (130-400); WHITE BLOOD COUNT 9.5 10^3/uL (4.3-11.0)
[2022-09-13] MEDS ORDERED: LIDOCAINE 1% INJ 10 ML VIAL INJ ONE (19:30)
[2022-09-13 19:34] VITALS: BP 134/80
[2022-09-13 19:54] LABS: ALBUMIN 4.4 GM/DL (3.2-4.5); BILIRUBIN,TOTAL 0.7 MG/DL (0.1-1.0); CALCIUM 9.8 MG/DL (8.5-10.1); CREATININE SERUM 0.99 MG/DL (0.60-1.30); POTASSIUM 4.2 MMOL/L (3.6-5.0); TOTAL PROTEIN 7.5 GM/DL (6.4-8.2)
== END 2022-09-13 19:39 | disposition left against medical advice (07) ==
LOC: EDUNIT# 18:42 → ER 18:43
DX: L02.211 Cutaneous abscess of abdominal wall (principal); Z86.14 Personal history of Methicillin resistant Staphylococcus aureus infection
CPT/HCPCS: 36415; 80053; 83605; 85025

== ENCOUNTER → 2022-10-23 | Outpatient (CLI) | payer MEDICAID ==
[2022-10-23 08:29] LABS: ALBUMIN 4.3 GM/DL (3.2-4.5); BILIRUBIN,TOTAL 0.6 MG/DL (0.1-1.0); CALCIUM 9.1 MG/DL (8.5-10.1); CREATININE SERUM 0.85 MG/DL (0.60-1.30); POTASSIUM 4.1 MMOL/L (3.6-5.0); TOTAL PROTEIN 7.9 GM/DL (6.4-8.2)
== END ==
LOC: LAB 07:50
PROVIDERS: ATTEND Internal Medicine Cardiovascular Disease
DX: E78.2 Mixed hyperlipidemia (principal); I10 Essential (primary) hypertension; I25.10 Atherosclerotic heart disease of native coronary artery without angina pectoris
CPT/HCPCS: 36415; 80053; 80061

== ENCOUNTER → 2022-11-18 | Outpatient (CLI) | payer MEDICAID | LOC: RAD 09:53 | PROVIDERS: ATTEND Nurse Practitioner Family | DX: M19.172 Post-traumatic osteoarthritis, left ankle and foot (principal); M25.472 Effusion, left ankle; G89.29 Other chronic pain; M25.572 Pain in left ankle and joints of left foot; Z87.828 Personal history of other (healed) physical injury and trauma ==

== ENCOUNTER → 2023-01-15 | Outpatient (CLI) | payer MEDICAID ==
--- NOTE | 2023-01-15 11:27 | Diagnostic Imaging Report ---
PROCEDURE: US Gallbladder. TECHNIQUE: Multiple real-time grayscale images were obtained over the right upper quadrant in various projections. INDICATION: Right upper quadrant pain. COMPARISON: CT abdomen pelvis of 06/17/2022 FINDINGS: Diffuse increased echogenicity throughout the liver is indicative of steatosis. No focal hepatic lesion is seen. No nodularity to liver surface. The liver is enlarged measuring 22 cm. Main portal vein is patent with normal directional flow. There is a small amount of sludge present within the gallbladder. No shadowing gallstones, gallbladder wall thickening or pericholecystic fluid. The common bile duct is obscured by overlying bowel gas. Pancreas is also obscured by overlying bowel gas. The right kidney is normal in size. No hydronephrosis, shadowing calculi, or suspicious mass lesion. IMPRESSION: 1. Unchanged hepatomegaly with diffuse steatosis. 2. There is a small amount of gallbladder sludge. No cholelithiasis or sonographic features of acute cholecystitis. Dictated by: Dictated on workstation # [id number]
== END ==
LOC: RAD 07:25
PROVIDERS: ATTEND Surgery
DX: K76.0 Fatty (change of) liver, not elsewhere classified (principal); K82.8 Other specified diseases of gallbladder
CPT/HCPCS: 76705

== ENCOUNTER → 2023-01-25 | Outpatient (CLI) | payer MEDICAID ==
[~2023-01-25] MED LIST changes: +ATOR40TA70 PO; +CATHETER FLUSH 10 ML SYR IVP PRN; +CETI10TA17 PO; +FLUT15.845 NS; +LOSA50TA63 PO; +MULT-593 PO; +OMEG100032 PO
--- NOTE | 2023-01-25 11:29 | Diagnostic Imaging Report ---
Indication: Abdominal pain After intravenous administration of 5.5 mCi technetium 99m Choletec, scintigraphic images of the upper abdomen are obtained. Initial images reveal normal distribution of activity throughout the liver. There is prompt appearance of activity in the biliary tree and gallbladder. Activity passes freely into the small bowel. Oral ensure was administered with gallbladder ejection fraction calculated to be 56%. Normal values are 50% or greater. Impression: Normal hepatobiliary scan without evidence of cholecystitis or biliary obstruction. Dictated by: Dictated on workstation # [id number]
== END ==
LOC: CARD 09:00
PROVIDERS: ATTEND Surgery
DX: R10.11 Right upper quadrant pain (principal)
CPT/HCPCS: 78227

== ENCOUNTER 2023-01-27 05:31 | Outpatient (CLI) | payer MEDICAID ==
[~2023-01-27] VITALS: Ht 177.8 cm; Wt 145.2 kg
[~2023-01-27 05:31] MED LIST changes: -ATOR40TA70 PO; -CATHETER FLUSH 10 ML SYR IVP PRN; -CETI10TA17 PO; -FLUT15.845 NS; -LOSA50TA63 PO; -MULT-593 PO; -OMEG100032 PO
[2023-01-27] MEDS ORDERED: LOSA50TA63 PO (11:25)
[2023-01-27] MEDS ORDERED: ATOR40TA70 PO (11:25)
[2023-01-27] MEDS ORDERED: MULT-593 PO (11:25)
[2023-01-27] MEDS ORDERED: PANT40TA52 PO (11:25)
[2023-01-27] MEDS ORDERED: OMEG100032 PO (11:25)
[2023-01-27] MEDS ORDERED: CETI10TA17 PO (11:25)
[2023-01-27] MEDS ORDERED: FLUT15.845 NS (11:25)
== END 2023-01-27 14:32 | disposition home or self-care (01) ==
LOC: PREOP 05:31
PROVIDERS: ATTEND Surgery
DX: Z01.818 Encounter for other preprocedural examination (principal)

== ENCOUNTER 2023-02-04 08:43 | Day surgery (SDC) | payer MEDICAID ==
[~2023-02-04] VITALS: Ht 177.8 cm; Wt 145.2 kg
[2023-02-04] VITALS (10 sets, daily range): BP systolic 110–140; BP diastolic 69–103
[~2023-02-04 08:43] MED LIST changes: +ATOR40TA70 PO; +CETI10TA17 PO; +FLUT15.845 NS; +LOSA50TA63 PO; +MULT-593 PO; +OMEG100032 PO
[2023-02-04] MEDS ORDERED: LIDOCAINE 1% w/EPI 1:100,000 20 ML VIAL ONE (09:11)
[2023-02-04] MEDS ORDERED: ONDANSETRON INJECTION 4 MG/2 ML (SDV) IV ONE (09:15)
[2023-02-04] MEDS ORDERED: FAMOTIDINE INJ 20MG/2ML VIAL IV ONE (09:15)
[2023-02-04] MEDS ORDERED: SCOPOLAMINE 1.5 MG (TRANSDERM-SCOP) PATCH TOP ONE (09:15)
[2023-02-04] MEDS ORDERED: ceFAZolin INJECTION 2,000 MG ONE (09:20)
[2023-02-04] MEDS ORDERED: NS (IVPB) 50 ML 50 ML ONE (09:20)
--- NOTE | 2023-02-04 09:22 | Progress Note-Pre Operative ---
Pre-Operative Progress Note Date H&P Reviewed: Feb 04, 2023 Time H&P Reviewed: 09:22 History & Physical: H&P Reviewed, Patient Examed, No changes noted Pre-Operative Diagnosis: biliary sludge, ruq abdominal pain MARIAJOSE LUDWIG DO Feb 04, 2023 09:22
[2023-02-04] MEDS ORDERED: LACTATED RINGERS 1,000 ML IV PRN (09:30)
[2023-02-04] MEDS ORDERED: ceFAZolin INJECTION 2,000 MG in NS (IVPB) 50 ML 50 ML IV ONE (09:30)
[2023-02-04] MEDS ORDERED: LIDOCAINE PF 2% 5 ML VIAL ONE (09:45)
[2023-02-04] MEDS ORDERED: proPOfol 200 MG/20 ML (DIPRIVAN) VIAL IV ONE (09:45)
[2023-02-04] MEDS ORDERED: dexAMETHasone INJ 10 MG/ML 1 ML VIAL ONE (09:45)
[2023-02-04] MEDS ORDERED: fentaNYL INJECTION 100 MCG/2 ML VIAL ONE (09:45)
[2023-02-04] MEDS ORDERED: SEVOFLURANE (ULTANE) 15 ML INHAL SOLN ONE (09:45)
[2023-02-04] MEDS ORDERED: ONDANSETRON INJECTION 4 MG/2 ML (SDV) ONE (09:45)
[2023-02-04] MEDS ORDERED: MIDAZOLAM INJ 2 MG/2 ML VIAL ONE (09:46)
[2023-02-04] MEDS ORDERED: ROCURONIUM 50 MG/5 ML (ZEMURON) VIAL IV ONE ×2 (10:28→11:08)
[2023-02-04] MEDS ORDERED: SUCCINYLCHOLINE INJ 20 MG/1 ML 10 ML VIAL ONE (10:29)
[2023-02-04] MEDS ORDERED: PHENYLEPHRINE 100 MCG/ML 10 ML (ANESTHESIA) SYR ONE (10:47)
[2023-02-04] MEDS ORDERED: DESFLURANE (SUPRANE) 15 ML INHAL SOLN ONE (11:22)
[2023-02-04] MEDS ORDERED: KETOROLAC INJ 30 MG/ML VIAL ONE (11:23)
[2023-02-04] MEDS ORDERED: ACHD5005 PO (11:31)
[2023-02-04] MEDS ORDERED: DOCU-143 PO (11:31)
--- NOTE | 2023-02-04 11:33 | Discharge Inst-Simple/Standard ---
Discharge Inst-Standard Discharge Medications New, Converted or Re-Newed RX: Transmitted to Pharmacy Patient Instructions/Follow Up Plan of Care/Instructions/FU: 2 weeks Ángel Activity as Tolerated: No Discharge Diet: Regular Diet Other Inst to Patient Follow up Appt: Make appointment for 2 weeks. Instructions: No lifting greater than 10 pounds. No strenuous activity. May shower in 24 hours, no tub bath or soaking. Use incentive spirometer at home as directed. No Smoking Skin/Wound Care: You have special glue over incision, it will fall off on it's own. Symptoms to Report: Appetite Changes, Extremity Discoloration, Numbness/Tingling, Swelling Increased, Bleeding Excessive, Eyesight Changes, Pain Increased, Urine Color Change, Constipation(Persistent), Fever over 101 degree F, Pain/Pressure in chest, Urinating Difficulty, Cough Up/Vomit Blood, Heart Beat Irreg/Pounding, Pain/Pressure in jaw, Vaginal Bleeding Increase, Cramps in feet or legs, Lightheadedness, Pain/Pressure in shoulder, Diarrhea(Persistent), Memory Changes Suddenly, Questions/Concerns, Weight gain consecutive days, Dizziness/Fainting, Nausea/Vomiting, Shortness of Breath, Weight gain over 2 pounds. If eyes or skin turn yellow notify physician. If questions or concerns contact your physician Or seek help at emergency department. MARIAJOSE LUDWIG DO Feb 04, 2023 11:33
--- NOTE | 2023-02-04 11:35 | Progress Note-Post Operative ---
Post-Operative Progess Note Surgeon (s)/Chemistry Tutor (s) Surgeon MARIAJOSE LUDWIG DO Chemistry Tutor: Dr. Elliott to assist in retraction dissection and closure. Pre-Operative Diagnosis biliary sludge, ruq abdominal pain Post-Operative Diagnosis same Procedure & Operative Findings Date of Procedure 02/04/23 Procedure Performed/Findings PROCEDURE: Laparoscopic cholecystectomy with intraoperative cholangiogram. COMPLICATIONS: None. PROCEDURE: The patient was taken to the operating suite and was prepped and draped in sterile fashion. A surgical pause was performed. Just superior to the umbilicus, a 12 mm incision was made. Dissection was taken down to the fascia, which was then scored and grasped with a Jameel and the abdomen was then entered. A 0 Vicryl suture was placed in a brwwpc-xo-fwomd fashion and a Ford trocar was placed and secured. Pneumoperitoneum was achieved. A 5mm trochar place in the subxyphoid and 2 in the right upper quadrant. Adhesions in the right upper quadrant were taken down with blunt and cautery dissection. The gallbladder was then grasped and elevated. The cystic duct, and cystic artery were then dissected out. Clip was placed on the distal portion of the cystic duct which was then partially transected. An arrow catheter was inserted into the duct. The cholangiogram was then performed. No filing defects and contrast made its way into the duodenum. Catheter removed. Clips were placed on proximal portion of the cystic duct and then the duct was then transected. Clips were placed along the proximal and distal portion of the cystic artery which was then transected. Hook cautery was used to dissect the gallbladder from the gallbladder fossa achieving hemostasis. The gallbladder was placed in an Endobag and removed through the 12 mm trocar site. The abdomen was then reinspected. Copious amounts of irrigation were used to irrigate the abdomen and there were no signs of active bleeding. Hemostasis had been achieved. The 12 mm fascial defect was then closed with 0 Vicryl suture that had been placed in a [id number] fashion. The abdomen was then desufflated, the trocars were removed. The abdomen was then washed and dried. The skin was then closed using 4-0 Monocryl in a subcuticular fashion. The abdomen was washed and dried and Skin Affix was place over incisions. Patient tolerated the procedure well without any complications and was taken to the recovery room in stable condition. Anesthesia Type general Estimated Blood Loss Estimated blood loss (mL): minimal Specimens/Packing Specimens Removed gallbladder MARIAJOSE LUDWIG DO Feb 04, 2023 11:35
[2023-02-04] MEDS ORDERED: ONDANSETRON INJECTION 4 MG/2 ML (SDV) IVP PRN (12:00)
[2023-02-04] MEDS ORDERED: HYDROmorphone INJECTION 2 MG/ML VIAL IV ONE (12:00)
[2023-02-04] MEDS ORDERED: HYDROcodone/ACETAMINOPHEN 5 MG/325 MG TABLET ONE (13:06)
[2023-02-04] MEDS ORDERED: HYDROcodone/ACETAMINOPHEN 5 MG/325 MG TABLET PO ONE (13:15)
--- NOTE | 2023-02-04 13:28 | Anesthesia-General Post-Op ---
General Patient Condition Mental Status/LOC: Same as Preop Cardiovascular: Satisfactory Nausea/Vomiting: Absent Respiratory: Satisfactory Pain: Controlled Complications: Absent Post Op Complications Complications None Follow Up Care/Instructions Patient Instructions None needed. Anesthesia/Patient Condition Patient Condition Patient is doing well, no complaints, stable vital signs, no apparent adverse anesthesia problems. No complications reported per nursing. D/C home per [facility] Criteria: Yes TAZ TURNER CRNA Feb 04, 2023 13:28
== END 2023-02-04 13:35 ==
LOC: SDC 08:43
PROVIDERS: ATTEND Surgery
DX: K81.1 Chronic cholecystitis (principal); K83.8 Other specified diseases of biliary tract; K66.0 Peritoneal adhesions (postprocedural) (postinfection); K21.9 Gastro-esophageal reflux disease without esophagitis; E66.01 Morbid (severe) obesity due to excess calories; Z79.899 Other long term (current) drug therapy; Z68.42 Body mass index [BMI] 45.0-49.9, adult
CPT/HCPCS: 76000; 87081

== ENCOUNTER → 2023-02-19 | Outpatient (CLI) | payer MEDICAID ==
[~2023-02-19] MED LIST changes: +DOCU-143 PO
[2023-02-19 08:39] LABS: ALBUMIN 4.4 GM/DL (3.2-4.5); BILIRUBIN,TOTAL 0.7 MG/DL (0.1-1.0); CALCIUM 9.4 MG/DL (8.5-10.1); CREATININE SERUM 0.83 MG/DL (0.60-1.30); POTASSIUM 4.2 MMOL/L (3.6-5.0); TOTAL PROTEIN 7.3 GM/DL (6.4-8.2)
== END ==
LOC: LAB 07:59
PROVIDERS: ATTEND Physician Assistant
DX: E78.2 Mixed hyperlipidemia (principal)
CPT/HCPCS: 36415; 80053; 80061

== ENCOUNTER 2023-02-22 11:07 | Emergency (ER) | payer MEDICAID ==
[~2023-02-22] VITALS: Ht 175.3 cm; Wt 145.0 kg
[2023-02-22 11:17] VITALS: BP 137/93
--- NOTE | 2023-02-22 11:30 | ED General ---
General Chief Complaint: Post OP Complications/Pain Stated Complaint: INCISION DRAINAGE - POST OP GALLBLADDER 02/04 Nursing Triage Note: PT AMB TO ED BY POV WITH C/O INCISION DRAINAGE. PT HAD MELVIN BY DR. LUDWIG ON 02/04. PT REPORTS SCAB AT INCISION SITE FELL OFF WHILE BATHING LAST NIGHT. PT IS CONCERNED THAT THE INCISION SITE LOOKS MORE OPEN TODAY. REPORTS SMALL AMOUNT OF DRAINAGE, NO FOUL SMELL. DENIES FEVER, PAIN, OR ANY OTHER SX AT THIS TIME. Source of Information: Patient Exam Limitations: No Limitations History of Present Illness Date Seen by Provider: Feb 22, 2023 Time Seen by Provider: 11:19 Initial Comments Here with report of scab coming off the supraumbilical postop wound after having his gallbladder out on the . This was done with Dr. Ludwig. Scab came off after shower this morning and he thought there is a little bit of drainage. There is no significant redness, swelling or warmth around the area. He has no pain to the area. Denies recent fever or chills. Otherwise been doing well postop. Timing/Duration: 1-3 Hours Severity: Mild Allergies and Home Medications Allergies Coded Allergies: morphine (Verified Adverse Reaction, Mild, SWEATS AND VOMITING, 06/15/19) Patient Home Medication List Home Medication List Reviewed: Yes Atorvastatin Calcium (Atorvastatin Calcium) 40 Mg Tablet, 40 MG PO DAILY, (Reported) Entered as Reported by: NICO MASCORRO on 01/27/23 1125 Cetirizine HCl (Cetirizine HCl) 10 Mg Tablet, 10 MG PO DAILY, (Reported) Entered as Reported by: NICO MASCORRO on 01/27/23 1125 Dicyclomine HCl (Dicyclomine HCl) 20 Mg Tablet, 20 MG PO QIDACHS PRN for abdominal cramping Prescribed by: ORALIA MADRIGAL on 05/08/22 1752 Docusate Sodium (Colace) 100 Mg Capsule, 100 MG PO BID Prescribed by: MARIAJOSE LUDWIG on 02/04/23 1131 Fluticasone Propionate (Fluticasone Propionate) 50 Mcg/Actuation [place].susp, 15.8 ML NS DAILY, (Reported) Entered as Reported by: NICO MASCORRO on 01/27/23 1125 Hydrocodone/Acetaminophen (Hydrocodone-Acetamin 5-325 mg) 5 Mg-325 Mg Tablet, 1 EACH PO Q4H PRN for PAIN-MODERATE (5-7) Prescribed by: MARIAJOSE LUDWIG on 02/04/23 1132 Losartan Potassium (Losartan Potassium) 50 Mg Tablet, 50 MG PO DAILY, (Reported) Entered as Reported by: NICO MASCORRO on 01/27/23 112 Multivitamin with Minerals (Multiple Vitamin) 1 Each Tablet, 1 EACH PO DAILY, (Reported) Entered as Reported by: NICO MASCORRO on 01/27/23 1125 [place]-3/Dha/Epa/Fish Oil (Fish Oil 1,000 mg Softgel) 1,000 Mg (120 Mg-180 Mg) Capsule, 1,000 MG PO DAILY, (Reported) Entered as Reported by: NICO MASCORRO on 01/27/23 1125 Pantoprazole Sodium (Pantoprazole Sodium) 40 Mg Tablet.dr, 40 MG PO DAILY, (Reported) Entered as Reported by: NICO MASCORRO on 01/27/23 1125 Review of Systems Review of Systems Constitutional: see HPI; No chills, No fever Gastrointestinal: No abdominal pain, No nausea, No vomiting Skin: No change in color; lesions Past Rqpgbci-Wnlpur-Hbgihl Hx Patient Social History Tobacco Use?: No Use of E-Cig and/or Vaping dev: No Substance use?: No Alcohol Use?: No Pt feels they are or have been: No Immunizations Up To Date Tetanus Booster (TDap): Unknown PED Vaccines UTD: Yes First/Initial COVID19 Vaccinat: Mar Second COVID19 Vaccination Deon: Mar Third COVID19 Vaccination Date: Mar Seasonal Allergies Seasonal Allergies: No Past Medical History Surgery/Hospitalization HX: HTN, HIGH CHOLESTEROL, GERD MELVIN, APPE, BILAT FOOT SX Surgeries: Yes (PERIRECTAL ABSCESS; SPHINCTEROTOMY; EGD/COLONOSCOPY) Appendectomy, Gallbladder, Orthopedic Respiratory: No Currently Using CPAP: No Currently Using BIPAP: No Cardiac: Yes Heart Murmur, High Cholesterol, Hypertension Neurological: No Reproductive Disorders: No Sexually Transmitted Disease: No HIV/AIDS: No Genitourinary: No Gastrointestinal: Yes (RECTAL BLEEDING, HX POLYPS; PERIRECTAL ABSCESS) Gastroesophageal Reflux, Chronic Diarrhea, Polyps, Hiatal Hernia Musculoskeletal: Yes Arthritis, Fractures Endocrine: No HEENT: No Loss of Vision: Denies Hearing Impairment: Denies Cancer: Yes (HAIRY CELL LEUKEMIA) Leukemia Did You Recieve Any Treatments: Yes What Type of Treatment Did You: Chemotherapy Psychosocial: No Integumentary: No Blood Disorders: No Adverse Reaction/Blood Tranf: No Family Medical History Reviewed Nursing Family Hx Cardiovascular disease 19 FATHER 19 MOTHER (bipass surgery) Diabetes mellitus 19 MOTHER Hypertension 19 FATHER Myocardial infarction 19 FATHER ( at age 46 from [place]) Heart Disease, Diabetes Physical Exam Vital Signs Vital Signs - First Documented 02/22/23 11:17 Temp 36.8 Pulse 102 Resp 20 B/P (MAP) 137/93 (108) Pulse Ox 94 O2 Delivery Room Air Capillary Refill : Less Than 3 Seconds Height, Weight, BMI Height: 5'9.00" Weight: 260lbs. 0.0oz. 117.858670xl; 47.00 BMI Method:Stated General Appearance: No Apparent Distress, WD/WN Respiratory: Lungs Clear, Normal Breath Sounds Cardiovascular: Regular Rate, Rhythm, No Murmur Gastrointestinal: Non Tender, Soft, Other (Half centimeter by half centimeter wound area that is in the area of the postop wound after cholecystectomy. Not draining any purulence and there is no significant surrounding redness and there is no obvious abscess or pain.) Neurologic/Psychiatric: Alert, Oriented x3 Progress/Results/Core Measures Suspected Sepsis SIRS Temperature: Pulse: 102 Respiratory Rate: 20 Blood Pressure 137 /93 Mean: 108 Results/Orders Vital Signs/I&O 02/22/23 11:17 Temp 36.8 Pulse 102 Resp 20 B/P (MAP) 137/93 (108) Pulse Ox 94 O2 Delivery Room Air Capillary Refill : Less Than 3 Seconds Blood Pressure Mean: 108 Progress Note : Progress Note Seen and evaluated. Physical exam is reassuring. We will apply antibiotic ointment and Band-Aid. I did discuss the case with Dr. Ludwig, patient's surgeon who did the cholecystectomy. We reviewed current findings. He did see the patient in office on Wednesday 3 days ago and it sounds like the wound is similar in appearance. Discharged home with return precautions. Patient verbalized understanding of instructions and agreement with plan. Dr. Ludwig agrees. Departure Impression Primary Impression: Encounter for postoperative wound care Disposition: HOME, SELF-CARE Condition: Improved Departure-Patient Inst. Decision time for Depature: 11:29 Referrals: [facility] (PCP[facility]Family) Primary Care Physician Patient Instructions: Wound Care ED Add. Discharge Instructions: You may continue to use antibiotic ointment and a Band-Aid over wound as needed. Follow-up with Dr. Ludwig for recheck. Return for worse pain, swelling, increasing redness, foul-smelling drainage or other concerns as needed. You may continue to shower. Do not soak wound in a bathtub, ponds, lakes, streams or other bodies of water until fully healed. ALFREDO MCKOY MD Feb 22, 2023 11:30
== END 2023-02-22 11:37 | disposition home or self-care (01) ==
LOC: EDUNIT# 11:07 → ER 11:09
DX: Z48.817 Encounter for surgical aftercare following surgery on the skin and subcutaneous tissue (principal)
CPT/HCPCS: 99281

== ENCOUNTER 2023-05-02 05:41 | Emergency (ER) | payer MEDICAID ==
[~2023-05-02] VITALS: Ht 177.8 cm; Wt 144.2 kg
[2023-05-02 06:12] LABS: ALBUMIN 4.5 GM/DL (3.2-4.5); BASOPHILS # (AUTO) 0.1 10^3/uL (0.0-0.1); BASOPHILS % (AUTO) 1 % (0-10); CHLORIDE 109 MMOL/L (98-107); EOSINOPHILS # (AUTO) 0.3 10^3/uL (0.0-0.3); EOSINOPHILS % (AUTO) 3 % (0-10); HEMATOCRIT 47 % (40-54); LYMPHOCYTES % (AUTO) 34 % (12-44); MEAN CORPUSCULAR HEMOGLOBIN 31 pg (25-34); MEAN CORPUSCULAR HGB CONC 34 g/dL (32-36); MEAN CORPUSCULAR VOLUME 90 fL (80-99); MEAN PLATELET VOLUME 10.7 fL (9.0-12.2); MONOCYTES # (AUTO) 0.6 10^3/uL (0.0-1.0); MONOCYTES % (AUTO) 7 % (0-12); NEUTROPHILS # (AUTO) 4.6 10^3/uL (1.8-7.8); NEUTROPHILS % (AUTO) 54 % (42-75); PLATELET COUNT 207 10^3/uL (130-400); POTASSIUM 4.4 MMOL/L (3.6-5.0); SODIUM 137 MMOL/L (135-145); WHITE BLOOD COUNT 8.6 10^3/uL (4.3-11.0)
[2023-05-02] MEDS ORDERED: FAMOTIDINE 20 MG TABLET PO STA (06:12)
[2023-05-02 06:14] LABS: CALCIUM 9.7 MG/DL (8.5-10.1)
[2023-05-02 06:15] LABS: GLUCOSE 103 MG/DL (70-105); TOTAL PROTEIN 7.7 GM/DL (6.4-8.2)
[2023-05-02] MEDS ORDERED: LIDOCAINE 2% VISCOUS 15 ML UDC PO ONE (06:15)
[2023-05-02] MEDS ORDERED: ANTACID SUSPENSION 30 ML UDC PO ONE (06:15)
[2023-05-02] MEDS ORDERED: ASPIRIN 81 MG CHEWABLE TABLET PO ONE (06:15)
[2023-05-02 06:16] LABS: BILIRUBIN,TOTAL 0.4 MG/DL (0.1-1.0); CARBON DIOXIDE 23 MMOL/L (21-32); INR 0.9 (0.8-1.4); PROTHROMBIN TIME PATIENT 12.6 SEC (12.2-14.7)
[2023-05-02 06:18] LABS: ALKALINE PHOSPHATASE 110 U/L (40-136); CREATININE SERUM 0.82 MG/DL (0.60-1.30); GFR ESTIMATED 108
[2023-05-02 06:19] LABS: BUN/CREATININE RATIO 17
--- NOTE | 2023-05-02 06:19 | ED Cardiac General ---
History of Present Illness General Chief Complaint: Chest Pain Stated Complaint: SLIGHT CP,LEFT SHOULDER & LEFT ARM PX Nursing Triage Note: PT A&OX3; PT AMBULATES TO ROOM WITHOUT ASSISTANCE OF ER STAFF; PT ADVISES THAT HE HAS HAD PERISTENT CHEST PAIN THAT BEGAN APPROX 4-5 DAYS AGO; PT REPORTS PAIN HAS BEEN MID STERNAL BUT THIS MORNING HE WAS AWOKEN WITH SEVERE CHEST PAIN THAT RADIATES INTO HIS L ARM Source: patient Exam Limitations: no limitations History of Present Illness Date Seen by Provider: May 02, 2023 Time Seen by Provider: 05:50 Initial Comments 48-year-old male with past medical history of hypertension and hyperlipidemia coming in due to chest pain. The pain has been going on for several days, worse when lying down, aching pain in the center of his chest, sometimes radiates to his left arm. He started Ozempic on Wednesday, symptoms started shortly after that. Nothing really seems to make it better. Does not take aspirin. 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 He has had a negative cardiac catheterization within recent history per the patient. He denies any surgery within the past month, lower extremity swelling or pain, no prior history of DVT or PE, no hemoptysis, shortness of breath, fever, abdominal pain, nausea, vomiting, diaphoresis, weakness, numbness, or any other concerns. He does not smoke. ASA po HAND DEVELOPER: No Allergies and Home Medications Allergies Coded Allergies: morphine (Verified Adverse Reaction, Mild, SWEATS AND VOMITING, 06/15/19) Patient Home Medication List Home Medication List Reviewed: Yes Atorvastatin Calcium (Atorvastatin Calcium) 40 Mg Tablet, 40 MG PO DAILY, (Reported) Entered as Reported by: NICO MASCORRO on 01/27/23 1125 Cetirizine HCl (Cetirizine HCl) 10 Mg Tablet, 10 MG PO DAILY, (Reported) Entered as Reported by: NICO MASCORRO on 01/27/23 1125 Dicyclomine HCl (Dicyclomine HCl) 20 Mg Tablet, 20 MG PO QIDACHS PRN for abdominal cramping Prescribed by: ORALIA MADRIGAL on 05/08/22 1752 Docusate Sodium (Colace) 100 Mg Capsule, 100 MG PO BID Prescribed by: MARIAJOSE LUDWIG on 02/04/23 1131 Fluticasone Propionate (Fluticasone Propionate) 50 Mcg/Actuation [place].susp, 15.8 ML NS DAILY, (Reported) Entered as Reported by: NIOC MASCORRO on 01/27/23 1125 Hydrocodone/Acetaminophen (Hydrocodone-Acetamin 5-325 mg) 5 Mg-325 Mg Tablet, 1 EACH PO Q4H PRN for PAIN-MODERATE (5-7) Prescribed by: MARIAJOSE LUDWIG on 02/04/23 1132 Losartan Potassium (Losartan Potassium) 50 Mg Tablet, 50 MG PO DAILY, (Reported) Entered as Reported by: NICO MASCORRO on 01/27/23 112 Multivitamin with Minerals (Multiple Vitamin) 1 Each Tablet, 1 EACH PO DAILY, (Reported) Entered as Reported by: NICO MASCORRO on 01/27/23 1125 [place]-3/Dha/Epa/Fish Oil (Fish Oil 1,000 mg Softgel) 1,000 Mg (120 Mg-180 Mg) Capsule, 1,000 MG PO DAILY, (Reported) Entered as Reported by: NICO MASCORRO on 01/27/23 112 Pantoprazole Sodium (Pantoprazole Sodium) 40 Mg Tablet.dr, 40 MG PO DAILY, (Reported) Entered as Reported by: NICO MASCORRO on 01/27/23 112 Review of Systems Review of Systems Constitutional: No fever EENTM: No Symptoms Reported Respiratory: No Symptoms Reported Cardiovascular: See HPI Gastrointestinal: No Symptoms Reported Genitourinary: No Symptoms Reported Musculoskeletal: no symptoms reported Skin: no symptoms reported Psychiatric/Neurological: No Symptoms Reported Endocrine: No Symptoms Reported Hematologic/Lymphatic: No Symptoms Reported Past Bvwecfi-Zsxnsc-Rnyxot Hx Patient Social History Tobacco Use?: No Use of E-Cig and/or Vaping dev: No Substance use?: No Alcohol Use?: No Pt feels they are or have been: No Immunizations Up To Date Tetanus Booster (TDap): Unknown PED Vaccines UTD: Yes Influenza Vaccine Up-to-Date: Yes; Up-to-Date First/Initial COVID19 Vaccinat: 2020 Second COVID19 Vaccination Deon: 2020 Third COVID19 Vaccination Date: Mar Seasonal Allergies Seasonal Allergies: No Past Medical History Surgery/Hospitalization HX: LEUKEMIA,HTN,HYPERLIPIDEMIA,GERD,HYPERGLYCERIDEMIA Surgeries: Yes (PERIRECTAL ABSCESS; SPHINCTEROTOMY; EGD/COLONOSCOPY) Appendectomy, Gallbladder, Orthopedic Respiratory: No Currently Using CPAP: No Currently Using BIPAP: No Cardiac: Yes Heart Murmur, High Cholesterol, Hypertension Neurological: No Reproductive Disorders: No Sexually Transmitted Disease: No HIV/AIDS: No Genitourinary: No Gastrointestinal: Yes (RECTAL BLEEDING, HX POLYPS; PERIRECTAL ABSCESS) Gastroesophageal Reflux, Chronic Diarrhea, Polyps, Hiatal Hernia Musculoskeletal: Yes Arthritis, Fractures Endocrine: No HEENT: No Loss of Vision: Denies Hearing Impairment: Denies Cancer: Yes (HAIRY CELL LEUKEMIA) Leukemia Did You Recieve Any Treatments: Yes What Type of Treatment Did You: Chemotherapy Psychosocial: No Integumentary: No Blood Disorders: No Adverse Reaction/Blood Tranf: No Family Medical History Cardiovascular disease 19 FATHER 19 MOTHER (bipass surgery) Diabetes mellitus 19 MOTHER Hypertension 19 FATHER Myocardial infarction 19 FATHER ( at age 46 from [place]) Heart Disease, Diabetes Physical Exam Vital Signs Vital Signs - First Documented 05/02/23 05:48 Temp 36.8 Pulse 89 Resp 16 B/P (MAP) 138/90 (106) Pulse Ox 96 O2 Delivery Room Air Capillary Refill : Less Than 3 Seconds Height, Weight, BMI Height: 5'9.00" Weight: 260lbs. 0.0oz. 117.536510in; 45.00 BMI Method:Stated General Appearance: No Apparent Distress, WD/WN HEENT: PERRL/EOMI, Normal ENT Inspection, Pharynx Normal Neck: Full Range of Motion, Normal Inspection, Non Tender, Supple Respiratory: Chest Non Tender, Lungs Clear, Normal Breath Sounds, No Accessory Muscle Use, No Respiratory Distress Cardiovascular: Regular Rate, Rhythm, No Edema, Normal Peripheral Pulses Gastrointestinal: Normal Bowel Sounds, Non Tender, Soft; No Distended, No Guarding Extremity: Normal Capillary Refill, Normal Inspection, Normal Range of Motion, Non Tender, No Calf Tenderness, No Pedal Edema Neurologic/Psychiatric: Alert, No Motor/Sensory Deficits, Normal Mood/Affect Skin: Normal Color, Warm/Dry Progress/Results/Core Measures Results/Orders Lab Results Laboratory Tests Test 05/02/23 05:54 Range/Units White Blood Count 8.6 4.3-11.0 10^3/uL Red Blood Count 5.15 4.30-5.52 10^6/uL Hemoglobin 16.0 13.3-17.7 g/dL Hematocrit 47 40-54 % Mean Corpuscular Volume 90 80-99 fL Mean Corpuscular Hemoglobin 31 25-34 pg Mean Corpuscular Hemoglobin Concent 34 32-36 g/dL Red Cell Distribution Width 11.8 10.0-14.5 % Platelet Count 207 130-400 10^3/uL Mean Platelet Volume 10.7 9.0-12.2 fL Immature Granulocyte % (Auto) 1 % Neutrophils (%) (Auto) 54 42-75 % Lymphocytes (%) (Auto) 34 12-44 % Monocytes (%) (Auto) 7 0-12 % Eosinophils (%) (Auto) 3 0-10 % Basophils (%) (Auto) 1 0-10 % Neutrophils # (Auto) 4.6 1.8-7.8 10^3/uL Lymphocytes # (Auto) 3.0 1.0-4.0 10^3/uL Monocytes # (Auto) 0.6 0.0-1.0 10^3/uL Eosinophils # (Auto) 0.3 0.0-0.3 10^3/uL Basophils # (Auto) 0.1 0.0-0.1 10^3/uL Immature Granulocyte # (Auto) 0.1 0.0-0.1 10^3/uL Prothrombin Time 12.6 12.2-14.7 SEC INR Comment 0.9 0.8-1.4 Activated Partial Thromboplast Time 28 24-35 SEC Sodium Level 137 135-145 MMOL/L Potassium Level 4.4 3.6-5.0 MMOL/L Chloride Level 109 H 98-107 MMOL/L Carbon Dioxide Level 23 21-32 MMOL/L Anion Gap 5 5-14 MMOL/L Blood Urea Nitrogen 14 7-18 MG/DL Creatinine 0.82 0.60-1.30 MG/DL Estimat Glomerular Filtration Rate 108 BUN/Creatinine Ratio 17 Glucose Level 103 70-105 MG/DL Calcium Level 9.7 8.5-10.1 MG/DL Corrected Calcium 9.3 8.5-10.1 MG/DL Magnesium Level 2.2 1.6-2.4 MG/DL Total Bilirubin 0.4 0.1-1.0 MG/DL Aspartate Amino Transf (AST/SGOT) 28 5-34 U/L Alanine Aminotransferase (ALT/SGPT) 46 0-55 U/L Alkaline Phosphatase 110 40-136 U/L Troponin I < 0.028 <0.028 NG/ML B-Type Natriuretic Peptide < 10.0 <100.0 PG/ML Total Protein 7.7 6.4-8.2 GM/DL Albumin 4.5 3.2-4.5 GM/DL Lipase 74 8-78 U/L My Orders Orders - LIEN THRASHER MD Cbc And Automated Diff (05/02/23 06:02) Magnesium (05/02/23 06:02) Chest 1 View, Ap/Pa Only (05/02/23 06:02) Comprehensive Metabolic Panel (05/02/23 06:02) Protime With Inr (05/02/23 06:02) Partial Thromboplastin Time (05/02/23 06:02) O2 (05/02/23 06:02) Monitor-Rhythm Ecg Trace Only (05/02/23 06:02) Ed Iv/Invasive Line Start (05/02/23 06:02) Lipase (05/02/23 06:02) Bnp Elena (05/02/23 06:02) Troponin I Hand (05/02/23 06:02) Lidocaine 2% Viscous 15 Ml (Xylocaine Vi (05/02/23 06:15) Famotidine Tablet (Famotidine Tablet) (05/02/23 06:12) Antacid Suspension (Antacid Suspension (05/02/23 06:15) Aspirin Chewable Tablet (Aspirin Chewabl (05/02/23 06:15) Medications Given in ED Current Medications Medications Dose Ordered Sig/Pablo Route Start Time Stop Time Status Last Admin Dose Admin Al Hydrox/Mg Hydrox/Simethicone 30 ml ONCE ONCE PO 05/02/23 06:15 05/02/23 06:16 DC 05/02/23 06:23 30 ML Aspirin 324 mg ONCE ONCE PO 05/02/23 06:15 05/02/23 06:16 DC 05/02/23 06:23 324 MG Lidocaine HCl 15 ml ONCE ONCE PO 05/02/23 06:15 05/02/23 06:16 DC 05/02/23 06:23 15 ML Vital Signs/I&O 05/02/23 05:48 Temp 36.8 Pulse 89 Resp 16 B/P (MAP) 138/90 (106) Pulse Ox 96 O2 Delivery Room Air Blood Pressure Mean: 106 Progress Progress Note : Progress Note 48yoM with above history coming in due to chest pain. ABCs were intact and vitals were stable on presentation. Physical exam reassuring with no acute abnormalities. EKG ordered interpreted by me showing no acute ischemic changes. Chest x-ray ordered and entered by me showing no pneumothorax, no obvious pneumonia, appears similar to prior. An IV was placed and basic labs were obtained and were significant for normal white blood cell count, normal creatinine, negative troponin, normal BNP. ACS very unlikely given the constant pain for many days with a negative troponin. He has low risk for PE per [place] criteria and is PERC negative. After GI cocktail, patient improved. Symptoms could be related to the Ozempic. He has follow-up soon with the cattle sprayer which I think would be appropriate for repeat evaluation. I believe he is otherwise stable for discharge. He was sent home with strict return precautions. Initial ECG Impression Date: May 02, 2023 Initial ECG Impression Time: 05:55 Initial ECG Rate: 85 Initial ECG Rhythm: Normal Sinus Comment Narrow QRS, normal axis, no significant ST changes or T wave abnormalities, LVH by aVL criteria Diagnostic Imaging Diagonstic Imaging: Xray (chest) Departure Impression Primary Impression: Chest pain Qualified Codes: R07.82 - Intercostal pain Disposition: 01 HOME, SELF-CARE Condition: Stable Departure-Patient Inst. Decision time for Depature: 07:10 [place]errals: [facility] [place] Primary Care Physician Patient Instructions: Chest Pain, Adult ED Add. Discharge Instructions: We are not seeing any evidence of heart attack or any other life-threatening c auses of chest pain at this time. It is possible this is related to your new medication which your body will get used to. We still recommend following up with Dr. Vera for repeat evaluation especially given your family history. Of course if you have any life-threatening concerns then please come back to the ER. Work/School Note: Work Release Form Date Seen in the Emergency Department: May 02, 2023 Return to Work: May 03, 2023 Restrictions: No Restrictions LIEN THRASHER MD May 02, 2023 06:18
[2023-05-02 06:21] LABS: ALANINE AMINOTRANSFERASE 46 U/L (0-55); MAGNESIUM 2.2 MG/DL (1.6-2.4)
[2023-05-02 06:22] LABS: LIPASE 74 U/L (8-78)
[2023-05-02 07:22] VITALS: BP 123/90
--- NOTE | 2023-05-02 08:37 | Diagnostic Imaging Report ---
XAM: CHEST 1 VIEW, AP/PA ONLY E INDICATION: Chest pain. COMPARISON: 09/26/2021. FINDINGS: Normal heart size and pulmonary vascularity. No dense consolidation, pleural effusion or pneumothorax. No acute osseous findings. IMPRESSION: Negative chest Dictated by: Dictated on workstation # [id number]
== END 2023-05-02 07:22 | disposition home or self-care (01) ==
LOC: EDUNIT# 05:41 → ER 05:44
DX: R07.9 Chest pain, unspecified (principal); Z82.49 Family history of ischemic heart disease and other diseases of the circulatory system
CPT/HCPCS: 36415; 71045; 80053; 83690; 83735; 83880; 84484; 85025; 85610; 85730; 93005; 93041

== ENCOUNTER 2023-05-16 12:26 | Emergency (ER) | payer MEDICAID ==
[~2023-05-16] VITALS: Ht 163 cm; Wt 142.0 kg
--- NOTE | 2023-05-16 12:41 | ED Cardiac General ---
History of Present Illness General Chief Complaint: Chest Pain Stated Complaint: CHEST PAIN/ACID REFLUX Nursing Triage Note: ARRIVED VIA AMB TO ROOM 08 WITH CHEST PAIN AND BELCHING STARTING AT 1030 AFTER HAVING COFFEE. Source: patient Exam Limitations: no limitations History of Present Illness Date Seen by Provider: May 16, 2023 Time Seen by Provider: 12:30 Initial Comments Patient is a 48-year-old male who presents to the emergency department with a chief complaint of epigastric "pressure" that comes in waves. He describes it as a pain that seems to radiate up into his chest. Onset at about 1030 this morning after drinking a cup and a half of coffee. He tells me he has a history of severe gastroesophageal reflux. He feels like that is what may be causing his pain. He has not taken any medications for the discomfort. He is quite belchy. Not nauseous, not diaphoretic. He takes Protonix 40 mg daily. He is also on medication for blood pressure, cholesterol. He has a strong family history of early coronary artery disease. He has had previous heart catheterization in [address] Vera which showed no significant coronary artery disease. He did not require intervention. He denies recent fevers, chills, cough or congestion. Had his gallbladder removed in January. Last bowel movement was approximately 45 minutes prior to arrival. Nonblack nonbloody. No issues with urination. Timing/Duration: 1-3 hours Severity: moderate (intermittent "comes in waves") Activities at Onset: other (after coffee) Prior CP/Workup: cardiac cath NTG SL BALLISTICS PROFESSOR: No ASA po BALLISTICS PROFESSOR: No Associated Systoms: Other (belching) Allergies and Home Medications Allergies Coded Allergies: hydromorphone (Verified Allergy, Unknown, 05/16/23) morphine (Verified Adverse Reaction, Mild, SWEATS AND VOMITING, 06/15/19) Patient Home Medication List Home Medication List Reviewed: Yes Atorvastatin Calcium (Atorvastatin Calcium) 40 Mg Tablet, 40 MG PO DAILY, (Reported) Entered as Reported by: NICO MACSORRO on 01/27/23 112 Cetirizine HCl (Cetirizine HCl) 10 Mg Tablet, 10 MG PO DAILY, (Reported) Entered as Reported by: NICO MASCORRO on 01/27/23 1125 Dicyclomine HCl (Dicyclomine HCl) 20 Mg Tablet, 20 MG PO QIDACHS PRN for abdominal cramping Prescribed by: ORALIA MADRIGAL on 05/08/22 175 Docusate Sodium (Colace) 100 Mg Capsule, 100 MG PO BID Prescribed by: MARIAJOSE LUDWIG on 02/04/23 1131 Fluticasone Propionate (Fluticasone Propionate) 50 Mcg/Actuation [place].susp, 15.8 ML NS DAILY, (Reported) Entered as Reported by: NICO MASCORRO on 01/27/23 1125 Hydrocodone/Acetaminophen (Hydrocodone-Acetamin 5-325 mg) 5 Mg-325 Mg Tablet, 1 EACH PO Q4H PRN for PAIN-MODERATE (5-7) Prescribed by: MARIAJOSE LUDWIG on 02/04/23 1132 Losartan Potassium (Losartan Potassium) 50 Mg Tablet, 50 MG PO DAILY, (Reported) Entered as Reported by: NICO MASCORRO on 01/27/23 112 Multivitamin with Minerals (Multiple Vitamin) 1 Each Tablet, 1 EACH PO DAILY, (Reported) Entered as Reported by: NICO MASCORRO on 01/27/23 1125 [place]-3/Dha/Epa/Fish Oil (Fish Oil 1,000 mg Softgel) 1,000 Mg (120 Mg-180 Mg) Capsule, 1,000 MG PO DAILY, (Reported) Entered as Reported by: NICO MASCORRO on 01/27/23 1125 Pantoprazole Sodium (Pantoprazole Sodium) 40 Mg Tablet.dr, 40 MG PO DAILY, (Reported) Entered as Reported by: NICO MASCORRO on 01/27/23 112 Sucralfate (Carafate) 1 Gram Tablet, 1 GM PO QIDACHS Prescribed by: ORALIA MADRIGAL on 05/16/23 1525 Review of Systems Review of Systems Constitutional: see HPI Respiratory: No Symptoms Reported Cardiovascular: Chest Pain Gastrointestinal: Abdominal Pain, Other ("gas and bloating pressure") Genitourinary: No Symptoms Reported Musculoskeletal: no symptoms reported Skin: no symptoms reported Endocrine: No Symptoms Reported Past [id number] Hx Patient Social History Tobacco Use?: No Substance use?: No Immunizations Up To Date Tetanus Booster (TDap): Unknown PED Vaccines UTD: Yes First/Initial COVID19 Vaccinat: 2020 Second COVID19 Vaccination Deon: 2020 Third COVID19 Vaccination Date: Mar Seasonal Allergies Seasonal Allergies: No Past Medical History Surgery/Hospitalization HX: LEUKEMIA,HTN,HYPERLIPIDEMIA,GERD,HYPERGLYCERIDEMIA Surgeries: Yes (PERIRECTAL ABSCESS; SPHINCTEROTOMY; EGD/COLONOSCOPY) Appendectomy, Gallbladder, Orthopedic Respiratory: No Currently Using CPAP: No Currently Using BIPAP: No Cardiac: Yes Heart Murmur, High Cholesterol, Hypertension Neurological: No Reproductive Disorders: No Sexually Transmitted Disease: No HIV/AIDS: No Genitourinary: No Gastrointestinal: Yes (RECTAL BLEEDING, HX POLYPS; PERIRECTAL ABSCESS) Gastroesophageal Reflux, Chronic Diarrhea, Polyps, Hiatal Hernia Musculoskeletal: Yes Arthritis, Fractures Endocrine: No HEENT: No Loss of Vision: Denies Hearing Impairment: Denies Cancer: Yes (HAIRY CELL LEUKEMIA) Leukemia Did You Recieve Any Treatments: Yes What Type of Treatment Did You: Chemotherapy Psychosocial: No Integumentary: No Blood Disorders: No Adverse Reaction/Blood Tranf: No Family Medical History Cardiovascular disease 19 FATHER 19 MOTHER (bipass surgery) Diabetes mellitus 19 MOTHER Hypertension 19 FATHER Myocardial infarction 19 FATHER ( at age 46 from [place]) Heart Disease, Diabetes Physical Exam Vital Signs Vital Signs - First Documented 05/16/23 12:28 Temp 36.0 Pulse 91 Resp 16 B/P (MAP) 132/86 (101) Pulse Ox 98 O2 Delivery Room Air Capillary Refill : Less Than 3 Seconds Height, Weight, BMI Height: 5'9.00" Weight: 260lbs. 0.0oz. [id number]; 53.00 BMI Method:Stated General Appearance: No Apparent Distress, WD/WN, Obese HEENT: PERRL/EOMI Neck: Normal Inspection Respiratory: Lungs Clear, Normal Breath Sounds, No Accessory Muscle Use, No Respiratory Distress Cardiovascular: Regular Rate, Rhythm, Normal Peripheral Pulses Gastrointestinal: Other (large protuberant abdomen; +BS; mild tenderness in the epigastrum. No rebound or involuntary guarding; constantly belching) Extremity: Normal Inspection, Normal Range of Motion Neurologic/Psychiatric: Alert, Oriented x3, No Motor/Sensory Deficits Skin: Normal Color, Warm/Dry Progress/Results/Core Measures Results/Orders Lab Results Laboratory Tests Test 05/16/23 12:40 05/16/23 14:07 Range/Units White Blood Count 7.2 4.3-11.0 10^3/uL Red Blood Count 5.19 4.30-5.52 10^6/uL Hemoglobin 16.2 13.3-17.7 g/dL Hematocrit 46 40-54 % Mean Corpuscular Volume 88 80-99 fL Mean Corpuscular Hemoglobin 31 25-34 pg Mean Corpuscular Hemoglobin Concent 35 32-36 g/dL Red Cell Distribution Width 11.5 10.0-14.5 % Platelet Count 183 130-400 10^3/uL Mean Platelet Volume 10.7 9.0-12.2 fL Immature Granulocyte % (Auto) 0 % Neutrophils (%) (Auto) 58 42-75 % Lymphocytes (%) (Auto) 30 12-44 % Monocytes (%) (Auto) 7 0-12 % Eosinophils (%) (Auto) 4 0-10 % Basophils (%) (Auto) 1 0-10 % Neutrophils # (Auto) 4.2 1.8-7.8 10^3/uL Lymphocytes # (Auto) 2.1 1.0-4.0 10^3/uL Monocytes # (Auto) 0.5 0.0-1.0 10^3/uL Eosinophils # (Auto) 0.3 0.0-0.3 10^3/uL Basophils # (Auto) 0.0 0.0-0.1 10^3/uL Immature Granulocyte # (Auto) 0.0 0.0-0.1 10^3/uL Prothrombin Time 13.2 12.2-14.7 SEC INR Comment 1.0 0.8-1.4 Activated Partial Thromboplast Time 29 24-35 SEC Sodium Level 137 135-145 MMOL/L Potassium Level 4.2 3.6-5.0 MMOL/L Chloride Level 105 98-107 MMOL/L Carbon Dioxide Level 22 21-32 MMOL/L Anion Gap 10 5-14 MMOL/L Blood Urea Nitrogen 12 7-18 MG/DL Creatinine 0.77 0.60-1.30 MG/DL Estimat Glomerular Filtration Rate 110 BUN/Creatinine Ratio 16 Glucose Level 96 70-105 MG/DL Calcium Level 9.6 8.5-10.1 MG/DL Corrected Calcium 9.2 8.5-10.1 MG/DL Magnesium Level 2.2 1.6-2.4 MG/DL Total Bilirubin 0.7 0.1-1.0 MG/DL Aspartate Amino Transf (AST/SGOT) 33 5-34 U/L Alanine Aminotransferase (ALT/SGPT) 59 H 0-55 U/L Alkaline Phosphatase 132 40-136 U/L Troponin I < 0.028 < 0.028 <0.028 NG/ML Total Protein 7.9 6.4-8.2 GM/DL Albumin 4.5 3.2-4.5 GM/DL My Orders Orders - ORALIA MADRIGAL MD Ekg Tracing (05/16/23 12:28) Cbc And Automated Diff (05/16/23 12:37) Magnesium (05/16/23 12:37) Chest 1 View, Ap/Pa Only (05/16/23 12:37) Comprehensive Metabolic Panel (05/16/23 12:37) Protime With Inr (05/16/23 12:37) Partial Thromboplastin Time (05/16/23 12:37) O2 (05/16/23 12:37) Monitor-Rhythm Ecg Trace Only (05/16/23 12:37) Ed Iv/Invasive Line Start (05/16/23 12:37) Troponin I Elena (05/16/23 12:37) Antacid Suspension (Antacid Suspension (05/16/23 12:45) Simethicone Chewable Tablet (Simethicone (05/16/23 12:45) Sucralfate Tablet (Sucralfate Tablet) (05/16/23 12:45) Lidocaine 2% Viscous 15 Ml (Xylocaine Vi (05/16/23 12:45) Troponin I Elena (05/16/23 13:53) Medications Given in ED Vital Signs/I&O 05/16/23 05/16/23 12:28 15:40 Temp 36.0 Pulse 91 89 Resp 16 B/P (MAP) 132/86 (101) 119/73 Pulse Ox 98 96 O2 Delivery Room Air Blood Pressure Mean: 101 Progress Progress Note #1: Time: 13:58 Progress Note Patient re-examined at this time. His belching and "gas" have resolved. He states he has a little discomfort still but overall much much better. Will repeat his troponin at this time, but I believe he is at very low risk for ACS primarily due to normal cath in 2020, normal EKG while symptomatic. Progress Note #2: Time: 15:20 Progress Note Patient seen and evaluated by me. Evaluation today includes history and physical exam with "chest pain protocol" to include CBC, comprehensive metabolic panel, magnesium, coag panel, EKG, single view chest x-ray and troponin x2. Pertinent physical exam findings well-developed well-nourished morbidly obese male in mild distress due to gas and bloating, epigastric and lower chest pain. Patient's heart is regular, his lungs are clear. He has a very large protuberant abdomen that is mildly tender in the epigastrium. Bowel sounds are present. He is constantly belching. No lower extremity edema or calf tenderness. His vital signs are stable, he is afebrile. No focal neurologic deficits. Differential diagnosis includes gastroesophageal reflux, Abdominal bloating, atypical ACS Labs, EKG and chest x-ray independently reviewed and interpreted by me. His CBC is completely within normal limits as his his comprehensive metabolic panel. Mag is within normal limits. Coag panel is normal. EKG shows normal sinus rhythm without any ectopy or ST segment change. Chest x-ray shows no effusion, infiltrate or other acute pathology. His troponin level is negative x2. Patient is treated in the emergency department with Maalox, Carafate and viscous lidocaine. He is also given 180 mg of simethicone. He had near complete reso lution of his discomfort. He stopped belching, felt decreased bloating. Patient is at high risk for early coronary artery disease but did have a heart cath 3 years ago that showed clean coronaries. I strongly encouraged him to continue to try and work on his risk factors specifically obesity for health. He verbalized understanding of the plan of care. All questions were sought and answered. Patient is improved at discharge. Initial ECG Impression Date: May 16, 2023 Initial ECG Impression Time: 12:37 Initial ECG Rate: 90 Initial ECG Rhythm: Normal Sinus Initial ECG Intervals DE 180 QRS 109 Qtc 404 Initial ECG Impression: Nonspecific Changes Diagnostic Imaging Diagonstic Imaging: Xray Plain Films/CT/US/NM/MRI: chest Comments Single view chest x-ray independently reviewed and interpreted by me, no effusion, infiltrate Departure Impression Primary Impression: Chest pain Qualified Codes: R07.89 - Other chest pain Additional Impression: Gastroesophageal reflux Qualified Codes: K21.9 - Gastro-esophageal reflux disease without esophagitis Disposition: HOME, SELF-CARE Condition: Improved Departure-Patient Inst. Decision time for Depature: 15:24 Referrals: [facility] (PCP/Family) Primary Care Physician Patient Instructions: Acid reflux and gastroesophageal reflux disease in adults Add. Discharge Instructions: Continue your daily medications as prescribed. I am adding Carafate for your gastroesophageal reflux/heartburn. Take 1 tablet 30 minutes before meals and at bedtime. This will help prevent, hopefully this severe of heartburn symptoms. Please follow-up with your primary care physician. Return to the emergency department for any new, concerning or emergent complaints. Scripts Sucralfate (Carafate) 1 Gram Tablet 1 GM PO LIZZIE, #60 TAB 1 Refill Prov: ORALIA MADRIGAL MD 05/16/23 ORALIA MADRIGAL MD May 16, 2023 12:41
[2023-05-16] MEDS ORDERED: LIDOCAINE 2% VISCOUS 15 ML UDC PO ONE (12:45)
[2023-05-16] MEDS ORDERED: ANTACID SUSPENSION 30 ML UDC PO ONE (12:45)
[2023-05-16] MEDS ORDERED: SUCRALFATE 1 GM TABLET PO ONE (12:45)
[2023-05-16] MEDS ORDERED: SIMETHICONE 80 MG CHEWABLE TABLET PO ONE (12:45)
[2023-05-16 12:46] LABS: BASOPHILS % (AUTO) 1 % (0-10); EOSINOPHILS # (AUTO) 0.3 10^3/uL (0.0-0.3); EOSINOPHILS % (AUTO) 4 % (0-10); HEMATOCRIT 46 % (40-54); HEMOGLOBIN 16.2 g/dL (13.3-17.7); LYMPHOCYTES # (AUTO) 2.1 10^3/uL (1.0-4.0); LYMPHOCYTES % (AUTO) 30 % (12-44); MEAN CORPUSCULAR HEMOGLOBIN 31 pg (25-34); MEAN CORPUSCULAR HGB CONC 35 g/dL (32-36); MEAN CORPUSCULAR VOLUME 88 fL (80-99); MEAN PLATELET VOLUME 10.7 fL (9.0-12.2); MONOCYTES # (AUTO) 0.5 10^3/uL (0.0-1.0); MONOCYTES % (AUTO) 7 % (0-12); NEUTROPHILS # (AUTO) 4.2 10^3/uL (1.8-7.8); NEUTROPHILS % (AUTO) 58 % (42-75); PLATELET COUNT 183 10^3/uL (130-400); WHITE BLOOD COUNT 7.2 10^3/uL (4.3-11.0)
[2023-05-16 12:57] LABS: ALBUMIN 4.5 GM/DL (3.2-4.5)
[2023-05-16 12:58] LABS: CHLORIDE 105 MMOL/L (98-107); POTASSIUM 4.2 MMOL/L (3.6-5.0); SODIUM 137 MMOL/L (135-145)
[2023-05-16 12:59] LABS: CALCIUM 9.6 MG/DL (8.5-10.1)
[2023-05-16 13:00] LABS: GLUCOSE 96 MG/DL (70-105); PROTHROMBIN TIME PATIENT 13.2 SEC (12.2-14.7)
[2023-05-16 13:01] LABS: CARBON DIOXIDE 22 MMOL/L (21-32); TOTAL PROTEIN 7.9 GM/DL (6.4-8.2)
[2023-05-16 13:02] LABS: BILIRUBIN,TOTAL 0.7 MG/DL (0.1-1.0)
[2023-05-16 13:03] LABS: ALKALINE PHOSPHATASE 132 U/L (40-136)
[2023-05-16 13:04] LABS: CREATININE SERUM 0.77 MG/DL (0.60-1.30); GFR ESTIMATED 110
[2023-05-16 13:05] LABS: BUN/CREATININE RATIO 16
[2023-05-16 13:07] LABS: ALANINE AMINOTRANSFERASE 59 U/L (0-55); MAGNESIUM 2.2 MG/DL (1.6-2.4)
--- NOTE | 2023-05-16 13:10 | Diagnostic Imaging Report ---
EXAM: CHEST 1 VIEW, AP/PA ONLY INDICATION: Chest pain. COMPARISON: 05/02/2023. FINDINGS: Normal heart size and central pulmonary vascularity. Lungs are clear. No pleural effusion or pneumothorax. No acute osseous findings. IMPRESSION: No acute cardiopulmonary findings. Dictated by: Dictated on workstation # [id number]
[2023-05-16] MEDS ORDERED: SUCR1TAB36 PO (15:25)
[2023-05-16 15:40] VITALS: BP 119/73
== END 2023-05-16 15:40 | disposition home or self-care (01) ==
LOC: EDUNIT# 12:26 → ER 12:29
DX: K21.9 Gastro-esophageal reflux disease without esophagitis (principal); Z90.49 Acquired absence of other specified parts of digestive tract; Z79.899 Other long term (current) drug therapy
CPT/HCPCS: 36415; 71045; 80053; 83735; 84484; 85025; 85610; 85730; 93005; 93041

== ENCOUNTER 2023-05-28 09:38 | Outpatient (CLI) | payer MEDICAID | END 2023-05-28 10:00 | LOC: SLEEP 09:38 | PROVIDERS: ATTEND Internal Medicine Cardiovascular Disease | DX: G47.33 Obstructive sleep apnea (adult) (pediatric) (principal); I10 Essential (primary) hypertension | CPT/HCPCS: G0399 ==